=== PATIENT | female | born 1935 | race Caucasian/White ===

== ENCOUNTER 2019-10-20 15:04 | Emergency (ER) | payer MEDICARE, OTHER, SELFPAY ==
[2019-10-20] VITALS (8 sets, daily range): BP systolic 138–172; BP diastolic 61–105; PULSE 66–99; RESP 14–24; TEMP 36; O2SAT 98–99; BMI 25.4
--- NOTE | 2019-10-20 15:12 | CT_ITS ---
We are attempting to reach an attending provider to discuss findings. An addendum with communication details will be sent when the communication is complete. STUDY: CT BRAIN WITHOUT CONTRAST REASON FOR EXAM: Female, 83 years old. SUDDEN ONSET DIZZINESS RADIATION DOSAGE (If Supplied By Facility): CTDIvol = ( 44.99 ) mGy, DLP = ( 796.11 ) mGycm TECHNIQUE: Transaxial CT imaging of the brain was performed without administration of intravenous contrast material. Individualized dose optimization techniques were used for this CT. COMPARISON: No relevant priors. FINDINGS: Normal soft tissue structures. Normal calvarium. There is mild cerebral atrophy with widening of the extra-axial spaces and ventricular dilatation. There are areas of decreased attenuation within the white matter tracts of the supratentorial brain, consistent with microvascular disease changes. There is low attenuation within the left thalamus compatible with old thalamic infarct. Normal brainstem. There is a focus of hyperdensity in the right side cerebellum measuring 2.3 x 1.6 cm with surrounding edema. There is a small focus of indeterminate low attenuation within the left-sided cerebellum which may represent chronic ischemic change. There are no findings of an acute ischemic infarction. Normal visualized paranasal sinuses. CT/Brain/Head without Contrast IMPRESSION: 2.3 x 1.6 x 2.6 cm acute right cerebellar hemorrhage with surrounding edema consider hemorrhagic infarct potentially underlying hemorrhagic mass in the appropriate setting. Atrophy chronic involutional change. 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 Electronically Signed: Kathryn Wilkins MD at 16:21 EST Tel , Service support ,
--- NOTE | 2019-10-20 15:12 | EKG12_ITS ---
Test Reason : DIZZINESS Blood Pressure : / mmHG Vent. Rate : 066 BPM Atrial Rate : 066 BPM P-R Int : 150 ms QRS Dur : 084 ms QT Int : 424 ms P-R-T Axes : 061 -42 -05 degrees QTc Int : 444 ms Normal sinus rhythm with sinus arrhythmia Left axis deviation Nonspecific ST abnormality Abnormal ECG Confirmed by FILEMON KERR, ELISA ([id number]), editor in chief BRENDA SALVADOR ([id number]) on 10/22/2019 1:33:21 PM Referred By: DIANNE Confirmed By:ELISA COLBERT MD
--- NOTE | 2019-10-20 15:13 | ED.VIS.GEN ---
History of Present Illness Chief Complaint: Dizziness Informant: Patient Onset: Today Context: Sudden Onset Timing: Continuous Current Severity: Moderate Maximum Severity: Severe Narrative: The patient is an 83-year-old female with only medical history significant for thyroid disease that presents to the emergency department with acute on sent sensation of motion, nausea, and vomiting. The patient states that she was in her normal state of health. She states that she was going to the grocery store. She states when she was walking in, she became acutely dizzy and nauseated. She states she just felt very off. She is never had anything like this before. She denies any trouble speaking or swallowing. She denies any neck pain or trauma. She denies any focal weakness. She was brought here immediately by squad. Prior similar symptoms: No Recent Illness/Hospitalization: No Past Medical History - Allergies and Home Meds Allergies/Adverse Reactions: Allergies naproxen [From Naprosyn] Allergy (Verified 02/08/17 16:16) Other Primary Care Physician: Fercho Vegas DO [Primary Care Provider] - Prior records reviewed: Yes Past Medical History: - - Thyroid disease Surgical History: noncontributory Smoking Status: Never smoker Review of Systems General: Denies: Chills, Fever, Sweats Eyes: Denies: Visual changes - bilaterally, Diplopia ENT: Denies: Rhinorrhea, Sore throat Cardiovascular: Denies: Chest pain, Palpitations Respiratory: Denies: Dyspnea, Cough, Dyspnea on exertion Gastrointestinal: Reports: Nausea, Vomiting. Denies: Abdominal pain, Diarrhea, Melena, Hematochezia Genitourinary: Denies: Dysuria, Hematuria, Frequency Musculoskeletal: Denies: Back pain, Extremity Pain Skin: Denies: Rash, Wounds Neurological: Denies: Headache, Weakness, Numbness Physical Exam Vital Signs/Narrative: Vital Signs Temp Pulse Resp BP Pulse Ox 10/20/19 15:06 96.8 F L 85 16 151/105 H 99 10/20/19 15:05 96.8 F L 66 16 151/105 H 98 Inital Vital Signs reviewed: Yes General: Well nourished, Well developed, No Acute Distress Head: Normocephalic, Atraumatic Eyes: Perrl, EOMI ENT: Moist mucous membranes, No rhinorrhea Neck: Supple, Nontender Cardiovascular: Regular rate, Regular rhythm, No murmurs Respiratory: No distress, CTA bilaterally, Chest nontender Abdomen: Soft, Nontender, Nondistended, Normal bowel sounds Back: Nontender, Normal Inspection Extremities: Nontender, No edema Skin: Normal color, No rash Neurological: Alert, Oriented x3, Cranial nerves II-XII grossly intact, Normal Strength, Normal Sensation Psychological: Normal affect, Normal Mood Diagnostic/Tx/Re-eval Clinical Impression(s) from Imaging Studies Brain CT 10/20/19 15:12 IMPRESSION: 2.3 x 1.6 x 2.6 cm acute right cerebellar hemorrhage with surrounding edema consider hemorrhagic infarct potentially underlying hemorrhagic mass in the appropriate setting. Atrophy chronic involutional change. 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 Electronically Signed: Kathryn Wilkins MD at 16:21 EST Tel , Service support , Abnormal Lab Results 10/20/19 10/20/19 15:20 15:20 WBC 7.0 RBC 4.54 Hgb 12.4 Hct 40.6 MCV 89.4 MCH 27.3 MCHC 30.5 L RDW Std Deviation 44.1 H RDW Coeff of Jose J 13.5 Plt Count 223 MPV 10.9 Immature Gran % (Auto) 2.700 H Neut % (Auto) 57.4 Lymph % (Auto) 27.5 Mclennan % (Auto) 10.7 H Eos % (Auto) 1.0 Baso % (Auto) 0.7 Absolute Neuts (auto) 4.0 Absolute Lymphs (auto) 1.93 Nucleated RBC % 0 Sodium 138 Potassium 3.3 L Chloride 106 Carbon Dioxide 27.0 Anion Gap 5 BUN 19 H Creatinine 0.71 Estim Creat Clear Calc 30.62 Est GFR (MDRD) Af Amer 101 Est GFR (MDRD) Non-Af 84 BUN/Creatinine Ratio 26.8 H Glucose 140 H Calcium 9.2 Total Bilirubin 0.40 AST 23 ALT 25 Alkaline Phosphatase 77 Total Protein 7.3 Albumin 3.7 Globulin 3.6 Albumin/Globulin Ratio 1.0 - Medical Decision Making The patient presents with acute onset nausea, vomiting, and sensation of motion. She has no nystagmus. She moves all extremities. She did seem to have some difficulty with comprehension, but it was hard to determine if this was focal. However, given her age and symptoms, she was sent immediately for head CT. This shows a small cerebellar hemorrhage. The patient was hypertensive so she was started on a Cardene drip. She is not on anticoagulants. I did discuss the results with the patient and her son. The patient is going to require higher level of care. She was discussed with Allen flores and will be transferred for definitive care of her new hemorrhagic stroke. Impression 1. Hemorrhagic stroke - Critical Care Time Critical care time (excluding procedures): 30-74 minutes, Discussing w/Patient &/or Family/Web Operations Manager, Discussing w/Consultants, Arranging Admission or Transfer, Performing Direct Patient Care at Bedside ED Disposition - Plan for ED Patient: Referrals: Fercho Vegas DO [Primary Care Provider] -
[2019-10-20] MEDS: 0.9% Normal Saline 1,000 ML 1000 ML IV (15:26)
[2019-10-20] MEDS: proMETHazine 25 MG/ML Syringe 6.25 MG IV (15:26)
[2019-10-20 15:39] LABS: Absolute Lymphocyte Count 1.93 X10^3/uL (0.83-4.51); Basophil# 0.05 X10^3/uL; Basophil% 0.7 % (0-1); Eosinophil# 0.07 X10^3/uL; Hematocrit 40.6 % (37-47); Hemoglobin 12.4 g/dL (12.0-15.0); Lymphocyte # 1.93 X10^3/ul (4.0); Lymphocyte % 27.5 % (19-41); Mean Corp Hgb Conc 30.5 g/dL (32-36); Mean Corpuscular Hgb 27.3 pg (27.0-32.0); Mean Corpuscular Volume 89.4 fL (81-99); Mean Platelet Vol. 10.9 fl (6.2-12.0); Monocyte# 0.75 X10^3/uL; Monocyte% 10.7 % (0-10); NRBC Flagged by Analyzer 0 % (0-5); Neutrophil # 4.04 X10^3/uL (2.7-7.7); Neutrophil % 57.4 % (47-70); Platelet Count 223 K/mm3 (150-450); RBC Distribution Width CV 13.5 % (11.6-14.6); RBC Distribution Width SD 44.1 fl (35.1-43.9); Red Blood Count 4.54 M/mm3 (4.2-5.4)
[2019-10-20 15:49] LABS: AST(SGOT) 23 U/L (15-37); Alanine Aminotransfer ALT/SGPT 25 U/L (13-56); Albumin, Serum 3.7 g/dL (3.2-5.0); Alkaline Phosphatase 77 U/L (45-117); Anion Gap 5 (5-15); BUN 19 mg/dL (7-18); BUN/Creat Ratio 26.8 RATIO (10-20); Calcium,Total 9.2 mg/dL (8.5-10.1); Chloride 106 mmol/L (98-107); Creatinine, Serum 0.71 mg/dL (0.55-1.02); EST Glomerular Filtration Rate 84 mL/min (>60); Est Glom Filt Rate - Afr Amer 101 mL/min (>60); Estimated Creatinine Clearance 30.62 ml/min; Globulin 3.6 g/dL (2.2-4.2); Glucose 140 mg/dL (74-106); Potassium 3.3 mmol/L (3.5-5.1); Protein, Total 7.3 g/dL (6.4-8.2); Sodium Level 138 mmol/L (136-145)
[2019-10-20 16:34] LABS: Bacteria 0 SEEN /hpf (None Seen); Mucous, Urine 0 SEEN /hpf (<or=2+); Squamous Epithelial Cells - UA 0 SEEN /hpf (5-10); White Blood Cells 0 SEEN /hpf (0-5)
[2019-10-20 16:39] LABS: Color, Urine Yellow (Yellow); Glucose, Dipstick Normal (Normal); Ketone-Dipstick Negative (Negative); Leukocyte Esterase-Dipstick Negative /ul (Negative); Nitrite-Dipstick Negative (Negative); Occult Blood-Urine 25 /ul (Negative); Protein-Dipstick Negative (Negative); Urine Bilirubin Dipstick Negative (Negative); Urine Clarity Clear (Clear); Urine Urobilinogen Normal (Normal)
[2019-10-20 17:50] LABS: Red Blood Cells-Urine 0-5 SEEN /hpf (0-5)
== END 2019-10-20 17:30 | disposition short-term general hospital (02) ==
PROVIDERS: Emergency Provider Emergency Medicine; PCP Student in an Organized Health Care Education/Training Program
DX: I61.4 Nontraumatic intracerebral hemorrhage in cerebellum (principal); E07.9 Disorder of thyroid, unspecified; Z86.73 Personal history of transient ischemic attack (TIA), and cerebral infarction without residual deficits; Z88.6 Allergy status to analgesic agent
CPT/HCPCS: 51702; 70450; 80053; 81001; 85025; 93005; 99285; J7030; J7050; A4216

== ENCOUNTER 2019-10-23 15:21 | Inpatient (IN) | payer MEDICARE, OTHER, SELFPAY ==
[2019-10-20 15:06] VITALS: BMI 25.4
[2019-10-23 15:28] VITALS: BP 147/68; PULSE 66; RESP 16; TEMP 36.4; O2SAT 98; BMI 22.8; BMI 22.9
[2019-10-23 16:36] VITALS: BMI 22.8
[2019-10-23 16:38] VITALS: O2SAT 98
[2019-10-23 19:44] VITALS: BP 141/79; PULSE 89; RESP 12; TEMP 36.5; O2SAT 98
[2019-10-23] MEDS: Atorvastatin Calcium 40 MG Tablet PO (21:49)
[2019-10-24 05:00] VITALS: BMI 22.8
[2019-10-24] MEDS: Levothyroxine 100 MCG Tablet PO (06:13)
[2019-10-24 06:57] VITALS: BP 138/77; PULSE 68; RESP 18; TEMP 36.4; O2SAT 99
[2019-10-24] MEDS: Multivitamins,Ther W-Minerals Tablet 1 TABLET PO (09:08)
[2019-10-24] MEDS: amLODIPine 10 MG Tablet PO (09:08)
--- NOTE | 2019-10-24 12:04 | HP.PCM_ITS ---
Problem List (1) Cerebellar hemorrhage Status: Acute Comment: subacute. CVA happened on 10/20/19 (2) Hypothyroidism Status: Chronic (3) Hypertension Status: Chronic (4) Diverticulosis Status: Chronic (5) Hemorrhagic cerebrovascular accident (CVA) Status: Acute Comment: Occurred on 10/20/2019 (6) Nephrolithiasis Status: Chronic Comment: Within the right kidney (7) Hiatal hernia Status: Chronic (8) COPD (chronic obstructive pulmonary disease) Status: Suspected Comment: flattened diaphragms and hyperexpansion on CTA of the chest in 2016 (9) Hemangioma of liver Status: Chronic (10) 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 (11) Osteoarthritis Status: Chronic Comment: has had a few injections in the knee History of Present Illness Date of Admission: 10/24/19 Chief Complaint: post hemorhagic cerebellar CVA debility The patient is a 83 year old F with a past medical history of hypertension, hypothyroidism, liver hemangioma, intrarenal nephrolithiasis on the right, osteoarthritis and a hemorrhagic CVA in the cerebellum on 10/20/2019. Patient was getting out of her car at the grocery store on 10/20/2019 and had sudden onset of dizziness and just did not feel right. She also had nausea. Her gait was noticed to be unstable and store personnel called 911. She was brought to [facility] where a stroke alert was called and a stat CT brain showed hemorrhage in the right side of the cerebellum measuring 2.3 x 1.6 cm with surrounding edema. She also had changes consistent with microvascular disease and mild cerebral atrophy. There was a low attenuation within the left thalamus compatible with an old thalamic infarct. The brainstem was normal. She was transferred to [facility] for evaluation by neurosurgery. She had a follow-up CT scan of her head at [facility] and the bleeding was stable. There was no need for neurosurgical intervention. She was admitted to the neuro ICU. MRI done at [facility] on 10/21/19 showed acute left galvez radiata lacunar infarct with stable acute right cerebellar parenchymal hemorrhage. There were no mass lesions. MRA of the brain done at [facility] on 10/21/2019 showed right BEEF [employer] WORK[employer] P1 segment focal high-grade stenosis with no other high-grade stenosis or aneurysm in the intracranial and extracranial circulation. SABRINA on 10/21/2019 at [facility] showed an EF of 68% with moderate left atrial enlargement and no PFO. When stable she was transferred to [facility] acute IP rehab on 10/23/19 for greater than 3 hours of therapy daily with a goal of returning her home at or near her prior level of independence. Erin lives at home by herself and has 2 steps to enter her ho use through the garage. There is a flight of steps to the basement. There is a handrail present on the basement steps and entry steps. She has grab bars in her tub area. Prior to the stroke she was independent with ADLs and she would occasionally use a straight cane to walk in her condo but never in the community. She was driving prior to recent event. All records from [facility] were reviewed. She worked until she was 76 before she retired. 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 She belongs to several groups and is very active. Past Medical History Past Medical History (Chronic Problems): Chronic Problems Hypothyroidism (Chronic) Hypertension (Chronic) Diverticulosis (Chronic) Nephrolithiasis (Chronic) Within the right kidney Hiatal hernia (Chronic) Hemangioma of liver (Chronic) Infarction of left basal ganglia (Chronic) Osteoarthritis (Chronic) has had a few injections in the knee Allergies naproxen [From Naprosyn] Allergy (Verified 02/08/17 16:16) Other Home Medications: Ambulatory Orders Medication Instructions Recorded Levothyroxine [Synthroid] 100 mcg PO DAILY 10/16/15 Multivit-Min/FA/Lycopen/Lutein 1 tablet PO DAILY 10/16/15 [Centrum Silver Tablet] Amlodipine [Norvasc] 10 mg PO DAILY 10/23/19 Atorvastatin Calcium 40 mg PO DAILY 10/23/19 Cholecalciferol (VIT D3) 2,500 units PO DAILY 10/23/19 Surgical History: - - Cyst removal from right wrist, T&A at 12 years of age, surgery on the left nose to remove a basal cell carcinoma resulting in a permanent L facial droop - resolves with smiling Psychiatric History: No pertinent psych hx BIT WELDER History: No pertinent BIT WELDER history Lives: Alone, - - She has a son who lives locally but works Smoking Status: Never smoker Tobacco Use: Non-smoker Alcohol: None Drugs: None - *Family History Maternal History Items: - - mother had a stroke Paternal History Items: Heart Disease - father Review of Systems Constitutional: Reports: Weakness. Denies: Chills, Fever, Weight Change Eyes: Denies: Blurred vision, Vision Change HEENT: Denies: Difficulty Hearing, Difficulty Swallowing, Head Aches, Sinus Congestion, Sinus Drainage Cardiovascular: Denies: Chest Pain, Edema, Light Headedness, Palpitations, Syncope Respiratory: Denies: Cough, Shortness of breath at rest, Shortness of breath upon exertion, Sputum production Gastrointestinal: Reports: Nausea - tells me that she got nauseated with her morning pills.......took them after breakfast.. Denies: Abdominal Pain, Constipation, Diarrhea, Vomiting Genitourinary: Denies: Dysuria Musculoskeletal: Reports: Foot Pain, Hand Pain, Joint stiffness, Joint Tenderness - taras in the hands, the feet and the right knee. Denies: Joint Pain Skin: Denies: Jaundice, Rash, Wounds Neurological: Reports: Confusion. Denies: Slurred speech, Focal weakness, Headaches, Numbness, Tingling, Tremor, Seizures Psychiatric: Denies: Anxiety, Depression, Homicidal Ideations, Suicidal Ideations Endocrine: Denies: Change in Body Habitus Hematologic/ Lymphatic: Denies: Easy Bruising, Easy Bleeding, Hx of blood clot VTE Information - Inpt Only VTE Present on Admission: No VTE Mechan Device Prophylaxis: Knee High JUAN Hose VTE Pharm Prophylaxis ordered?: Yes Patient Problems: Active and Suspected Problems Cerebellar hemorrhage (Acute) subacute. CVA happened on 10/20/19 Hemorrhagic cerebrovascular accident (CVA) (Acute) Occurred on 10/20/2019 COPD (chronic obstructive pulmonary disease) (Suspected) flattened diaphragms and hyperexpansion on CTA of the chest in 2016 - Physical Exam Vitals/I&O's: Vital Signs Temp Pulse Resp BP Pulse Ox 97.6 F L 68 18 138/77 H 99 10/24/19 06:57 10/24/19 06:57 10/24/19 06:57 10/24/19 06:57 10/24/19 06:57 Oxygen Delivery Method Room Air Weight: 121 lb 0.54 oz Body Mass Index (BMI) 22.8 Intake and Output for Last 24 Hours 10/22/19 10/23/19 10/24/19 23:59 23:59 23:59 Intake Total 240 / 240 360 / 360 Output Total 150 / 150 Balance 90 / 90 360 / 360 General: Alert, Oriented x3, Cooperative, Well developed, Well nourished HEENT: Atraumatic, PERRLA, EOMI, Normocephalic Oral: Dry Mucosa Neck: Supple, No JVD, Negative Carotid Bruits, No Nodes, Trachea Midline Lungs: Clear to auscultation, Normal air movement, No rhonchi, No wheeze, No rales Cardiovascular: Regular rate, Regular Rhythm, Normal S1, Normal S2, No murmurs, No Ectopic Activity, No rub noted, No Gallop Abdomen: Bowel Sounds Present, Soft, Non Tender, Non-Distended, - - No guarding with palpation Extremities: No clubbing, No cyanosis, No edema, Capillary Refill Less than 3 Seconds, No Calf Tenderness, - - She has extensive arthritic changes in the PIP's and DIP's of the hands. There are no red or warm joints. Skin: No rashes, No breakdown Musculoskeletal: Arthritic Changes Neurological: Cranial nerves II-XII grossly intact - She has a mild droop to the left corner of the mouth. She had a wide excision of a basal cell carcinoma of the left nose and the incision extends from the eyebrow to the nares and into the nasal labial fold, Facial Droop - left due to prior surgery, - Psych/Mental Status: Anxious - very talkative and does not stop to allow me to ask questions...intermittently answers questions, Impulsive, - - speech seems pressured Current Medications Amlodipine Besylate (Norvasc) 10 mg PO DAILY PENDING SALE TO [facility] Last Admin: 10/24/19 09:08 Dose: 10 mg Documented by: Atorvastatin Calcium (Lipitor) 40 mg PO QHS PENDING SALE TO [facility] Last Admin: 10/23/19 21:49 Dose: 40 mg Documented by: Bisacodyl (Dulcolax) 10 mg RECTAL .PRN X 1 PRN PRN Reason: Constipation Cholecalciferol (Vitamin D (25mcg)) 2,500 unit PO DAILY PENDING SALE TO [facility] Last Admin: 10/24/19 09:08 Dose: 2,500 unit Documented by: Levothyroxine Sodium (Synthroid) 100 mcg PO DAILY@0600 PENDING SALE TO [facility] Last Admin: 10/24/19 06:13 Dose: 100 mcg Documented by: Magnesium Hydroxide (Milk Of Magnesia) 30 ml PO .PRN X 1 PRN PRN Reason: Constipation Multivitamins/Minerals (Multivitamin With Minerals (Bkc)) 1 tablet PO DAILY@0800 PENDING SALE TO [facility] Last Admin: 10/24/19 09:08 Dose: 1 tablet Documented by: Senna/Docusate Sodium (Senokot-S, Kelly-Colace) 2 tablet PO BID PENDING SALE TO [facility] Last Admin: 10/24/19 09:06 Dose: Not Given Documented by: Assessment/Plan All Active Problems Cerebellar hemorrhage (Acute) Hemorrhagic cerebrovascular accident (CVA) (Acute) Impressions 1. Debility due to Subacute right cerebellar hemorrhagic CVA on 10/20/19 2. Acute encephalopathy due to acute CVA with confusion and impulsiveness 3. HTN 4. Hypothyroidism 5. anxiety? she perseverates on things and has somewhat pressured speech - will continue to observe. Check a TSH and T4. 6. Diverticulosis/R intrarenal nephrolithiasis in the past/liver hemangioma/OA -complicate care, management, recovery and prognosis. Continue home medications. She was started on an antihypertensive at [facility]. She was also started on atorvastatin. She will need a follow-up liver panel, CK and lipid panel in 6 weeks. PLAN PT for gait stability OT for ADL's ST for evaluation Analgesics as needed Bowel protocol Fall precautions Assess for Anxiety/Depression - she is perseverating on things like BP and toileting and has a set way of doing things GI prophylaxis with none required at this time....no complaints of heartburn or GI distress DVT prophylaxis with heparin Follow up with Dr. Fercho Vegas within 1 week of discharge from rehab and with Dr. Monty Hanks from neurology following DC from Rehab Obtain progress notes, problem list, medication list and any reports of a DEXA scan from Dr. Fercho Vegas. CBC, CMP, magnesium, lipid panel, vitamin D level, TSH and T4 in the a.m. Add melatonin to her list of as needed medications. She refused a stool softener this morning. Inpatient E&M: [id number] Init Hosp L3
[2019-10-24 12:17] VITALS: BMI 22.8
--- NOTE | 2019-10-24 12:25 | CASEMGMT ---
Social Work PHQ-9 completed - scored 0/. Dianne Tavarez, CURRICULUM ADVISORY TEACHER CHILD DEVELOPMENT ASSOCIATE TEACHER
--- NOTE | 2019-10-24 14:13 | REHABEVAL_ITS ---
Admission Information Primary Diagnosis:: sequelae of recent R cerebellar hemorrhagic infarct with cognitive dysfunction and generalized weakness Status Changes from Prescreening?: No changes Identified Actual Problem List:: Cognitve Impr/Memory Loss, Alteration in Sleep, Mobility Impaired, Ineffective Communication, BP, Hypertension Potential Problem List:: DVT, Bleeding, Infection, UTI, Aspiration, Falls, Skin Integrity, Depression Risk of Complications DVT: LMWH, JUAN Hose Bleeding: Monitor Lab Values, Nursing to Teach Precautions for anti-coagulation therapy., Wound, if applicable, to be assessed every shift., Stroke patients assessed for lethargy or change in status. Infection: Clinical Staff to Monitor for S/S of infection:, S/S of infection include fever, redness, warmth, etc. Urinary Tract Infection: Monitor for frequency, burning, discomfort, or incontinence., Nursing will obtain urine sample for urinalysis and C&S when ordered. Aspiration: Clinical staff will monitor for coughing, drooling, congestion., Speech will evaluate swallowing and dsyphasia., Nursing will monitor patient swallowing during meals. Falls: Patient will be evaluated for Fall Precautions, Patient will be placed on Fall Precautions as indicated per protocol. Skin Breakdown: Nursing will assess skin daily using assessment tool., Nursing will place on Skin Breakdown Precautions as indicated. Pain: Clinical staff will assess patient's pain level per protocol., Medications will be given, if needed, and the pain level reassessed., Other methods: Massage, distraction, decrease stimulus, etc. used PRN. Plan of Care Patient requires physician specializing in physical medicine and rehab oversight to provide close medical supervision of rehab issues including: Pain Management, Sleep Problems, Bowel and Bladder, Medical and co-morbidity Management, DVT prophylaxis, Rehabilitation Leadership, Coordination of treatment team Patient needs Physical Therapy: For a minimum of 1 hour, At least 5 out of 7 days Patient needs Physical Therapy to improve:: Mobility, Mobility, Mobility, Strengthening, Transfers, Stretching, ROM, Endurance, Stairs, Gait, Balance Patient needs Occupational Therapy: For a minimum of 1 hour, At least 5 out of 7 days Patient needs Occupational Therapy to improve ADL's incl.: Eating, Grooming, B athing, Dressing, Toileting, Toilet transfers, Community Reintegration, Higher functioning activities, Household tasks, Adaptive Equipment, Splinting, Other activities as determined Patient requires speech therapy: For a minimum of 1 hour, At least 5 out of 7 days Patient requires speech therapy for: Swallowing, Cognition, Language Skills, Compensatory Strategies Patient requires 24/ Rehabilitation Nursing for: Pain Issues, Identifying and preventing risk factors, Monitoring and reporting current medical conditions, As sisting with ambulation, transfer, and all ADL's, Teaching patients about disease process and medications, Family teaching, Providing safe environment, Bowel and Bladder Issues, Skin integrity, Medication Management Patient needs Service Electrician/ Case Management for: Discharge Planning, Arranging Home Equipment or Services, Family Interventions Patient needs Dietary and Nutrition Services for: Adequate Nutrition, Nutritional Supplements, Nutritional Education Goals Patient will remain: free from falls, or injury at time of discharge. Patient will perform bed mobility at: MOD I level of assist. Patient will complete transfers from bed to chair at: MOD I level of assist. Patient will ambulate: 100 feet, with MOD I assist, with LRD Patient will complete upper body dressing at: MOD I level of assist. Patient will complete lower body dressing at: MOD I level of assist. Patient will complete toileting at: MOD I level of assist. Patient will perform bathing at: MOD I level of assist. Patient will complete grooming at: MOD I level of assist. Patient will complete home management skills at: MOD I level of assist. Patient will achieve: 12 stairs, at MOD I assist Patient will have pain level of: of 3 or less Patient's skin will: remain intact, free from infection. Patient will receive: adequate nutrition. Discharge Planning Pt Prognosis for Sig. Practical Improv. w/in Reasonable Time: Good Estimated Length of stay (days): 14 Anticipated D/C Destination: Home
[2019-10-24 15:22] LABS: Mucous, Urine 0 SEEN /hpf (<or=2+); Red Blood Cells-Urine 0 SEEN /hpf (0-5)
[2019-10-24 15:25] LABS: Color, Urine Yellow (Yellow); Glucose, Dipstick Normal (Normal); Ketone-Dipstick Negative (Negative); Leukocyte Esterase-Dipstick 100 /ul (Negative); Nitrite-Dipstick Negative (Negative); Occult Blood-Urine Negative /ul (Negative); Protein-Dipstick Negative (Negative); Specific Gravity, Urine 1.015 (1.002-1.030); Urine Bilirubin Dipstick Negative (Negative); Urine Clarity Sl. Cloudy (Clear); Urine Urobilinogen Normal (Normal)
[2019-10-24 15:33] LABS: Bacteria RARE /hpf (None Seen); Squamous Epithelial Cells - UA 0-5 SEEN /hpf (5-10); White Blood Cells 5-10 SEEN /hpf (0-5)
[2019-10-24 19:21] VITALS: BP 124/79; PULSE 83; RESP 18; TEMP 36.6; O2SAT 98
[2019-10-24] MEDS: Cefadroxil 500 MG CAPSULE 1000 MG PO (20:43)
[2019-10-24] MEDS: Heparin Injection (Vial) 5,000 UNIT/ML VIAL 5000 UNIT SC (20:44)
[2019-10-24] MEDS: Atorvastatin Calcium 40 MG Tablet PO (20:44)
[2019-10-24] MEDS: MELATONIN 3 MG TABLET PO (22:27)
[2019-10-25] MEDS: Levothyroxine 100 MCG Tablet PO (05:58)
[2019-10-25 07:14] VITALS: BP 148/75; PULSE 69; RESP 18; TEMP 36.6; O2SAT 100
[2019-10-25 07:43] LABS: Basophil# 0.03 X10^3/uL; Basophil% 0.6 % (0-1); Eosinophil# 0.13 X10^3/uL; Eosinophils% 2.6 % (0-5); Hematocrit 40.2 % (37-47); Hemoglobin 12.6 g/dL (12.0-15.0); Lymphocyte % 23.9 % (19-41); Mean Corp Hgb Conc 31.3 g/dL (32-36); Mean Corpuscular Hgb 27.5 pg (27.0-32.0); Mean Corpuscular Volume 87.8 fL (81-99); Mean Platelet Vol. 11.1 fl (6.2-12.0); Monocyte# 0.64 X10^3/uL; Monocyte% 12.7 % (0-10); NRBC Flagged by Analyzer 0 % (0-5); Neutrophil # 3.02 X10^3/uL (2.7-7.7); Platelet Count 228 K/mm3 (150-450); RBC Distribution Width CV 13.4 % (11.6-14.6); RBC Distribution Width SD 42.9 fl (35.1-43.9); Red Blood Count 4.58 M/mm3 (4.2-5.4)
[2019-10-25 07:44] VITALS: O2SAT 97
[2019-10-25] MEDS: Heparin Injection (Vial) 5,000 UNIT/ML VIAL 5000 UNIT SC ×2 (07:45→21:02)
[2019-10-25] MEDS: Cefadroxil 500 MG CAPSULE 1000 MG PO ×2 (07:46→21:02)
[2019-10-25] MEDS: Multivitamins,Ther W-Minerals Tablet 1 TABLET PO (07:46)
[2019-10-25] MEDS: amLODIPine 10 MG Tablet PO (07:46)
[2019-10-25 08:12] LABS: ALB/GLOB Ratio 0.9 RATIO (0.9-2.4); AST(SGOT) 22 U/L (15-37); Alanine Aminotransfer ALT/SGPT 25 U/L (13-56); Albumin, Serum 3.4 g/dL (3.2-5.0); Alkaline Phosphatase 71 U/L (45-117); Anion Gap 7 (5-15); BUN 21 mg/dL (7-18); BUN/Creat Ratio 32.1 RATIO (10-20); Calcium,Total 8.9 mg/dL (8.5-10.1); Chloride 105 mmol/L (98-107); Cholesterol 168 mg/dL (200); Creatinine, Serum 0.66 mg/dL (0.55-1.02); EST Glomerular Filtration Rate 92 mL/min (>60); Est Glom Filt Rate - Afr Amer 111 mL/min (>60); Estimated Creatinine Clearance 32.17 ml/min; Globulin 3.7 g/dL (2.2-4.2); Glucose 87 mg/dL (74-106); High Density Lipoprotein 65 mg/dL; Magnesium 2.2 mg/dL (1.6-2.6); Potassium 4.2 mmol/L (3.5-5.1); Protein, Total 7.1 g/dL (6.4-8.2); Sodium Level 138 mmol/L (136-145); T4 Total, Thyroxin 9.8 ug/dL (4.8-13.9); Thyroid Stim Hormone (TSH) 3.39 uIU/mL (0.358-3.74); Triglycerides 94 mg/dL; Very Low Density Lipoprotein 19 mg/dL (5-40)
[2019-10-25 08:38] VITALS: BMI 22.8
[2019-10-25 19:31] VITALS: BP 120/60; PULSE 76; RESP 16; TEMP 36.8; O2SAT 99
[2019-10-25] MEDS: Atorvastatin Calcium 40 MG Tablet PO (21:02)
[2019-10-25] MEDS: MELATONIN 3 MG TABLET PO (21:02)
[2019-10-26] MEDS: Levothyroxine 100 MCG Tablet PO (06:49)
[2019-10-26 07:40] VITALS: O2SAT 94
[2019-10-26 08:13] VITALS: BP 134/68; PULSE 69; RESP 16; TEMP 36.6; O2SAT 98
[2019-10-26] MEDS: Cefadroxil 500 MG CAPSULE 1000 MG PO ×2 (09:21→21:00)
[2019-10-26] MEDS: Heparin Injection (Vial) 5,000 UNIT/ML VIAL 5000 UNIT SC ×2 (09:21→21:00)
[2019-10-26] MEDS: amLODIPine 10 MG Tablet PO (09:22)
[2019-10-26 10:09] VITALS: BMI 22.8
--- NOTE | 2019-10-26 11:07 | NURSING ---
Pt refused her scheduled vit D and multi vit this AM despite education stating I don't take all these pills at home. Did take her Norvasc and Duricef. Will continue to monitor.
[2019-10-26 19:34] VITALS: BP 136/67; PULSE 63; RESP 16; TEMP 36.8; O2SAT 99
[2019-10-26] MEDS: MELATONIN 3 MG TABLET PO (21:00)
[2019-10-26] MEDS: Atorvastatin Calcium 40 MG Tablet PO (21:00)
--- NOTE | 2019-10-27 03:48 | NURSING ---
Reviewed and agree with CATEGORY CONSULTANT's functional assessment and handoff charting.
[2019-10-27 04:00] VITALS: BMI 22.8
[2019-10-27] MEDS: Levothyroxine 100 MCG Tablet PO (05:25)
[2019-10-27 06:00] VITALS: BP 135/69; PULSE 70; RESP 16; TEMP 36.5; O2SAT 97
[2019-10-27] MEDS: Senna/Docusate Sodium 1 Tablet 2 TABLET PO (07:59)
[2019-10-27] MEDS: Multivitamins,Ther W-Minerals Tablet 1 TABLET PO (07:59)
[2019-10-27] MEDS: amLODIPine 10 MG Tablet PO (07:59)
[2019-10-27] MEDS: Cefadroxil 500 MG CAPSULE 1000 MG PO (07:59)
--- NOTE | 2019-10-27 10:17 | CASEMGMT ---
Social Work IDT met with patient and son for Team Meeting. Discussed patient's progress in therapy. Pt is CGA for transfers and walking with FWW, min assist for bathing for thoroughness, CGA for dressing for balance while standing. Pt needs assistance for balance and safety. ST working with pt on ST memory, attention, comprehension, problem-solving, and decreased awareness of deficits. Pts lungs are clear. Pt is very routine oriented. Son noticed some ST memory issues the past 6-8 months and repetitiveness. Physician recommending f/u with neurologist at DC. Explained Medicare coverage - approved 9 days with DC date 10/31. Will continue to follow to determine DC needs. DELILAH LemusW
[2019-10-27] MEDS: Heparin Injection (Vial) 5,000 UNIT/ML VIAL 5000 UNIT SC ×2 (10:44→21:01)
--- NOTE | 2019-10-27 14:39 | PCM.PN.BLA ---
Progress Note The patient was seen on team rounds today. Her son Mk was present for team rounds. Afebile VSS Maintaining appropriate oxygen saturation on RA Oral intake is fair to good Discussed with nursing - no problems that need addressed Reviewed the PT/OT/ST notes Medication list reviewed. All lab was personally reviewed. CBC is unremarkable. The CMP is remarkable for an increased BUN at 21 with a creatinine of 0.66 and a BUN/creatinine ratio of 32.1. LDL is 84 and the HDL is 65. Vitamin D is within normal limits at 41 and the TSH and T4 are normal. UA on 10/24/2019 showed 5-10 white blood cells and rare bacteria and there was no growth on the urine culture. Duricef is been discontinued. Erin is complaining of nausea and dizziness which she associates with the BP medication that she was never on in the past but, I told he it is more likely than not due to the cerebellar hemorrhage. She has no other complaints today. I talked to Mk about any difficulties she has been having with memory prior to the stroke and he has noticed a decline in short term memory over the past 6 months. Erin is unaware of this. He has also noticed that she is repeating herself a lot also. Alert and oriented X 3 appropriate. Lungs- CTA H- RRR no gallop Abd -soft, NT, ND, normal BS's in all quadrants, no guarding with palpation no edema I observed her ambulating in the jones with the FWW and she is quite hunched over. Impressions 1. 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 HTN - new diagnosis for her 4. cognitive dysfunction with short term memory difficulties that seem to have predated the CVA. Perseveration. will need to follow up with neurology post DC for the stroke and also for cognitive testing......Alzheimer's? TSH and T4 are normal. 5. UTI - ruled out. Duricef discontinued Will check a B12 and also a RPR and CIRILO to r/o reversible causes of dementia Will need HHC at DC. Mk lives close by the pt and can spend the nights with her. Will need to be good with safety awareness prior to DC if she is going to be home by herself during the days DC the Duricef Encouraged increased fluid intake Recheck a BMP in a few days If she has not had a DEXA in the past I recommend that she get one as an OP. She has some Kyphosis Inpatient E&M: [id number] Subs Hosp L2
[2019-10-27 17:00] VITALS: BMI 22.8
[2019-10-27 19:31] VITALS: BP 117/62; PULSE 77; RESP 16; TEMP 36.8; O2SAT 97
--- NOTE | 2019-10-27 20:49 | NURSING ---
Pt ambulated around unit x2 with staff.
[2019-10-27 20:57] VITALS: BMI 22.8
[2019-10-27] MEDS: Atorvastatin Calcium 40 MG Tablet PO (21:01)
[2019-10-27] MEDS: MELATONIN 3 MG TABLET PO (21:01)
[2019-10-27 22:00] VITALS: RESP 16
[2019-10-28] MEDS: Levothyroxine 100 MCG Tablet PO (04:49)
--- NOTE | 2019-10-28 05:03 | NURSING ---
with am care, pt refusing JUAN hose. staff re-educates pt on the need for TEDs and the prevention of blood clots. pt verbalizes understanding and still refuses JUAN application. Will continue to educate.
[2019-10-28] MEDS: Heparin Injection (Vial) 5,000 UNIT/ML VIAL 5000 UNIT SC ×2 (08:04→20:50)
[2019-10-28] MEDS: Multivitamins,Ther W-Minerals Tablet 1 TABLET PO (08:04)
[2019-10-28] MEDS: amLODIPine 10 MG Tablet PO (08:05)
[2019-10-28] MEDS: Senna/Docusate Sodium 1 Tablet 2 TABLET PO (08:05)
[2019-10-28 08:17] VITALS: BP 149/83; PULSE 76; RESP 16; TEMP 36.6; O2SAT 97
[2019-10-28 10:20] VITALS: BMI 22.8
--- NOTE | 2019-10-28 12:05 | CASEMGMT ---
Social Work Spoke with son about alternative DC plans and resources. Discussed AL, SNF, skilled and nonskilled HHC, Medicare coverage in those areas, Adult Day Centers. Provided resources list above to son, including transportation and [employer] resources. Will continue to follow for DC planning. Dianne Tavarez, [employer] RIG BUILDER
[2019-10-28 20:50] VITALS: BP 131/60; PULSE 62; RESP 14; TEMP 36.7; O2SAT 97; O2SAT 99; BMI 22.8
[2019-10-28] MEDS: MELATONIN 3 MG TABLET PO (20:51)
[2019-10-28] MEDS: Atorvastatin Calcium 40 MG Tablet PO (20:51)
--- NOTE | 2019-10-29 00:28 | NURSING ---
Reviewed and agree with BUILDING CERTIFIER documentation and charting.
[2019-10-29] MEDS: Levothyroxine 100 MCG Tablet PO (06:43)
[2019-10-29 08:00] VITALS: BP 133/65; PULSE 61; RESP 17; TEMP 36.5; O2SAT 99
[2019-10-29] MEDS: Heparin Injection (Vial) 5,000 UNIT/ML VIAL 5000 UNIT SC ×2 (08:35→22:08)
[2019-10-29] MEDS: Multivitamins,Ther W-Minerals Tablet 1 TABLET PO (08:35)
[2019-10-29] MEDS: amLODIPine 10 MG Tablet PO (08:35)
[2019-10-29 11:24] VITALS: BMI 22.8
--- NOTE | 2019-10-29 13:41 | CASEMGMT ---
Addendum entered by Dianne Tavarez 10/30/19 15:50: [facility] to complete [id number] report to determine pt eligibility. Will continue to follow. Addendum entered by Dianne Tavarez 10/29/19 16:26: [facility] does not have availability. Referred to [facility] and they are reviewing clinicals and plan to schedule an onsite. Will continue to follow. Original Note: Social Work Met with patient and two sons to discuss therapy recommendations of AL and HHC at [place]. Pt agreeable. Explained at length respite AL at 30 days private pay, level of care needed, and HHC covered by insurance. Pt chose sons to look into [place], [place] and [facility]. Son will notify which AL to refer to. Will continue to follow for [place] 10/31. DELILAH Lemus
[2019-10-29 19:08] VITALS: BP 131/65; PULSE 79; RESP 16; TEMP 36.7; O2SAT 98
[2019-10-29 22:00] VITALS: PULSE 79; RESP 16; O2SAT 98; BMI 22.8
[2019-10-29] MEDS: MELATONIN 3 MG TABLET PO (22:08)
[2019-10-29] MEDS: Atorvastatin Calcium 40 MG Tablet PO (22:08)
[2019-10-30] MEDS: Levothyroxine 100 MCG Tablet PO (05:38)
[2019-10-30] MEDS: Senna/Docusate Sodium 1 Tablet 2 TABLET PO (08:26)
[2019-10-30] MEDS: amLODIPine 10 MG Tablet PO (08:26)
[2019-10-30] MEDS: Multivitamins,Ther W-Minerals Tablet 1 TABLET PO (08:26)
[2019-10-30] MEDS: Heparin Injection (Vial) 5,000 UNIT/ML VIAL 5000 UNIT SC ×2 (08:36→20:59)
[2019-10-30 08:41] VITALS: BP 137/73; PULSE 81; RESP 16; TEMP 36.5; O2SAT 96
--- NOTE | 2019-10-30 10:28 | PCM.PN.BLA ---
Progress Note Afebile VSS Maintaining appropriate oxygen saturation on RA Oral intake is good Last bowel movement was today Discussed with nursing - no problems that need addressed Reviewed the PT/OT/ST notes - she is progressing Medication list reviewed. Dizziness is improving. no THAKUR Alert, very talkative, repeats herself and perseverates on things H-RRR, no gallop Lungs - CTA abd - soft, NT, ND, no guarding with palpation no edema, no calf tenderness Impressions 1. Post stroke debility 2. Subacute cerebellar hemorrhagic CVA-more likely than not secondary to untreated hypertension 3. Hypertension-blood pressures are well controlled. 4. suspected early dementia - recommended to her son that he follow up with a neurologist - the earlier the medication is started the better the response. ST is working with her on medications and she is having difficulty figuring out when to take the meds. I reviewed the SW's note and her sons are looking at AL facilities at [place]. She perseverates on things and then she can not move forward with other tasks. Will defer treating for suspected dementia until she sees a neurologist and has some neurocognitive testing done. She also should have a DEXA if not done in the past 2 years. She has kyphosis. Plan DC 11/01/19 STROKE Vital Signs/Narrative: Vital Signs Temp Pulse Resp BP Pulse Ox 10/30/19 08:41 97.7 F L 81 16 137/73 H 96 Inpatient E&M: [id number] Subs Hosp L2
[2019-10-30 11:38] VITALS: BMI 22.8
[2019-10-30 14:16] LABS: Vitamin B12 709 pg/mL (211-911)
[2019-10-30 19:27] VITALS: BP 128/63; PULSE 73; RESP 16; TEMP 36.4; O2SAT 97
[2019-10-30] MEDS: MELATONIN 3 MG TABLET PO (20:59)
[2019-10-30] MEDS: Atorvastatin Calcium 40 MG Tablet PO (20:59)
[2019-10-30 21:11] VITALS: BMI 22.8
[2019-10-31] MEDS: Levothyroxine 100 MCG Tablet PO (05:57)
[2019-10-31 06:39] LABS: Anion Gap 5 (5-15); BUN 20 mg/dL (7-18); BUN/Creat Ratio 30.1 RATIO (10-20); Calcium,Total 8.6 mg/dL (8.5-10.1); Chloride 109 mmol/L (98-107); Creatinine, Serum 0.66 mg/dL (0.55-1.02); EST Glomerular Filtration Rate 90 mL/min (>60); Est Glom Filt Rate - Afr Amer 109 mL/min (>60); Estimated Creatinine Clearance 32.17 ml/min; Glucose 85 mg/dL (74-106); Potassium 4.2 mmol/L (3.5-5.1); Sodium Level 140 mmol/L (136-145)
[2019-10-31] MEDS: amLODIPine 10 MG Tablet PO (07:50)
[2019-10-31] MEDS: Multivitamins,Ther W-Minerals Tablet 1 TABLET PO (07:50)
[2019-10-31 08:24] VITALS: BP 139/72; PULSE 65; RESP 16; TEMP 36.4; O2SAT 98
[2019-10-31] MEDS: Heparin Injection (Vial) 5,000 UNIT/ML VIAL 5000 UNIT SC ×2 (08:41→21:00)
--- NOTE | 2019-10-31 11:46 | CASEMGMT ---
Social Work Spoke with [facility] and they can accept pt. Notified son and inquired about HHC agency - son chose [facility]- referral made for PT/OT. No DME needs. Plan: DC to [facility] 10/31 with [facility] PT/OT. Dianne Tavarez, [employer] LAB OPERATOR
--- NOTE | 2019-10-31 13:04 | CASEMGMT ---
Addendum entered by Dianne Tavarez 10/31/19 13:36: Ordered ST for cognition as well. Original Note: Social Work Spoke with [facility] and pt can receive outpatient PT/OT there. Pt and son's are agreeable. Cancelled [facility] referral. Dianne Tavarez, DELILAH GRANTW
--- NOTE | 2019-10-31 13:28 | PCM.TXEXTCAR ---
- Diet 10/23/19 16:00 Diet: Cardiac/Low Cholesterol Food consistency:: Regular Liquid Consistency:: Regular/Thin Diet Comments: no salt - Routine Orders/Code Status Enema Type: Fleetz Enema Frequency: Daily PRN Suppository Type: Dulcolax 10mg Suppository Frequency: Daily PRN O2 Liters per Minute: 1-2 O2 Frequency: PRN Keep PO Greater than or Equal to (%): 90 Routine Lab Work: - - BMP and CBC without diff in 1 week Code Status: Full Code - Therapies Weight Bearing: Full weight bearing Extremity Affected:: problems with balance due to a posterior circulation CVA Physical Therapy: Eval and Treat Occupational Therapy: Eval and Treat Speech Therapy: Eval and Treat - Problem/Diagnosis (1) Cerebellar hemorrhage Status: Chronic Comment: subacute. CVA happened on 10/20/19 Current Visit: Yes (2) Hypothyroidism Status: Chronic Current Visit: Yes (3) Hypertension Status: Chronic Current Visit: Yes (4) Diverticulosis Status: Chronic Current Visit: Yes (5) Hemorrhagic cerebrovascular accident (CVA) Status: Acute Comment: Occurred on 10/20/2019 Current Visit: Yes (6) Nephrolithiasis Status: Chronic Comment: Within the right kidney Current Visit: Yes (7) Hiatal hernia Status: Chronic Current Visit: Yes (8) COPD (chronic obstructive pulmonary disease) Status: Suspected Comment: flattened diaphragms and hyperexpansion on CTA of the chest in 2016 Current Visit: Yes (9) Hemangioma of liver Status: Chronic Current Visit: Yes (10) 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 Current Visit: Yes (11) Osteoarthritis Status: Chronic Comment: has had a few injections in the knee Current Visit: Yes (12) Back pain Status: Chronic Current Visit: Yes (13) Dementia Status: Suspected Current Visit: Yes - Allergies/Procedures Done in Hospital Allergies/Adverse Reactions: Allergies naproxen [From Naprosyn] Allergy (Verified 02/08/17 16:16) Other Procedures: None - Type of Care/Length of Stay Estimated LOS: More Than 30 Days Type of Care Needed: [facility]/Assisted Living Rehab Potential: Good Prognosis: Good - Additional Orders/Day of Discharge Additional Orders: She tends to perseverate on things. She is having difficulty with problem solving and safety awareness. She should continue to get ST. She has been referred to a neurologist to be evaluated for dementia. All of her labs have been good including B12, TSH, T4. There is an CIRILO and a RPR pending at the time of DC. H&P will serve as current which was dated: 10/24/19 Day of Discharge: 10/31/19 - Dietary and Speech Recommendations Dietitian Recommendations/Changes: Continue cardiac/low chol - no added salt diet. - Follow Up Care Primary Care Physician: Fercho Vegas, [Primary Care Provider] - Please follow up with your Primary Care Physician in: following DC from [facility] Please Follow Up With: Dr Fercho Vegas Please Follow Up With: Romain Hanks-Neurology Please Follow Up With: Enma De Leon
[2019-10-31 15:43] VITALS: BMI 22.8
[2019-10-31 16:51] LABS: ANTINUCLEAR ANTIBODIES DIRECT Negative (Negative)
[2019-10-31 20:12] VITALS: BP 126/69; PULSE 86; RESP 16; TEMP 36.4; O2SAT 94
[2019-10-31] MEDS: MELATONIN 3 MG TABLET PO (21:00)
[2019-10-31] MEDS: Atorvastatin Calcium 40 MG Tablet PO (21:00)
[2019-11-01 03:11] VITALS: BMI 22.8
[2019-11-01] MEDS: Levothyroxine 100 MCG Tablet PO (06:16)
[2019-11-01 07:00] VITALS: BP 126/68; PULSE 71; RESP 18; TEMP 36.3; O2SAT 100
[2019-11-01] MEDS: Multivitamins,Ther W-Minerals Tablet 1 TABLET PO (08:04)
[2019-11-01] MEDS: amLODIPine 10 MG Tablet PO (08:04)
[2019-11-01 12:00] VITALS: BMI 22.8
[2019-11-01 13:40] VITALS: BP 126/68; PULSE 71; RESP 17; TEMP 36.3; O2SAT 100
--- NOTE | 2019-11-01 13:45 | NURSING ---
Son given dc instruct and he will make follow up pcp appointment. Assisted living at [facility] given report. Patient in good spirits.
[2019-11-06 02:22] LABS: Rapid Plasmin Reagin (RPR) NONREACTIVE (NONREACTIVE)
--- NOTE | 2019-11-08 16:10 | PCM.DC.SUM ---
Discharge Date and Diagnosis Date of Admission: 10/24/19 Date of Discharge: 10/31/19 - Primary Discharge Diagnosis Post stroke debility Subacute cerebellar hemorrhagic CVA-more likely than not secondary to untreated hypertension Acute encephalopathy secondary to acute CVA with confusion and impulsiveness Suspected anxiety Suspected dementia - Secondary Discharge Diagnosis Chronic Problems Cerebellar hemorrhage (Chronic) subacute. CVA happened on 10/20/19 Hypothyroidism (Chronic) Hypertension (Chronic) Diverticulosis (Chronic) Nephrolithiasis (Chronic) Within the right kidney Hiatal hernia (Chronic) Hemangioma of liver (Chronic) Infarction of left basal ganglia (Chronic) Osteoarthritis (Chronic) has had a few injections in the knee Back pain (Chronic) kyphosis Hospital Course and Treatment Imaging Results: Laboratory Tests 10/31/19 10/30/19 10/30/19 Range/Units 05:37 13:26 13:26 WBC (4.4-11.0) K/mm3 RBC (4.2-5.4) M/mm3 Hgb (12.0-15.0) g/dL Hct (37-47) % MCV (81-99) fL MCH (27.0-32.0) pg MCHC (32-36) g/dL RDW Std Deviation (35.1-43.9) fl RDW Coeff of Jose J (11.6-14.6) % Plt Count (150-450) K/mm3 MPV (6.2-12.0) fl Immature Gran % (Auto) (0.0-0.9) % Neut % (Auto) (47-70) % Lymph % (Auto) (19-41) % Carlton % (Auto) (0-10) % Eos % (Auto) (0-5) % Baso % (Auto) (0-1) % Absolute Neuts (auto) (2.0-7.7) X10^3/uL Absolute Lymphs (auto) (0.83-4.51) X10^3/uL Nucleated RBC % (0-5) % Sodium 140 (136-145) mmol/L Potassium 4.2 (3.5-5.1) mmol/L Chloride 109 H (98-107) mmol/L Carbon Dioxide 26.0 (21.0-32.0) mmol/L Anion Gap 5 (5-15) BUN 20 H (7-18) mg/dL Creatinine 0.66 (0.55-1.02) mg/dL Estim Creat Clear Calc 32.17 ml/min Est GFR (MDRD) Af Amer 109 (>60) mL/min Est GFR (MDRD) Non-Af 90 (>60) mL/min BUN/Creatinine Ratio 30.1 H (10-20) RATIO Glucose 85 (74-106) mg/dL Calcium 8.6 (8.5-10.1) mg/dL Magnesium (1.6-2.6) mg/dL Total Bilirubin (0.20-1.00) mg/dL AST (15-37) U/L ALT (13-56) U/L Alkaline Phosphatase (45-117) U/L Total Protein (6.4-8.2) g/dL Albumin (3.2-5.0) g/dL Globulin (2.2-4.2) g/dL Albumin/Globulin Ratio (0.9-2.4) RATIO Triglycerides ( - 199) mg/dL Cholesterol (200) mg/dL LDL Cholesterol (0-130) mg/dL VLDL Cholesterol (5-40) mg/dL HDL Cholesterol (40 - ) mg/dL Vitamin B12 (211-911) pg/mL Vitamin D 25-Hydroxy ng/mL TSH (0.358-3.74) uIU/mL Thyroxine (T4) (4.8-13.9) ug/dL Urine Color (Yellow) Urine Clarity (Clear) Urine pH (5.0 - 8.0) Ur Specific [place] (1.002-1.030) Urine Protein (Negative) mg/dl Urine Glucose (UA) (Normal) mg/dl Urine Ketones (Negative) mg/dl Urine Occult Blood (Negative) /ul Urine Nitrite (Negative) Urine Bilirubin (Negative) mg/dL Urine Urobilinogen (Normal) mg/dl Ur Leukocyte Esterase (Negative) /ul Urine RBC (0-5) /hpf Urine WBC (0-5) /hpf Ur Squamous Epith Cells (5-10) /hpf Urine Bacteria (None Seen) /hpf Urine Mucus (<or=2+) /hpf CIRILO Screen Negative (Negative) STEPHANIE-1 Antibody Not Reportable SS-A/Ro IgG Antibody Not Reportable SS-B/La IgG Antibody Not Reportable Sm (Burciaga) Antibody Not Reportable IT SERVICE CONTINUITY SUPERVISOR Antibody Not Reportable Scl-70 Scleroderma Ab Not Reportable Double Strand DNA Ab Not Reportable Centromere B Antibody Not Reportable RPR NONREACTIVE (NONREACTIVE) 10/30/19 10/25/19 10/25/19 Range/Units 13:26 07:30 07:30 WBC (4.4-11.0) K/mm3 RBC (4.2-5.4) M/mm3 Hgb (12.0-15.0) g/dL Hct (37-47) % MCV (81-99) fL MCH (27.0-32.0) pg MCHC (32-36) g/dL RDW Std Deviation (35.1-43.9) fl RDW Coeff of Jose J (11.6-14.6) % Plt Count (150-450) K/mm3 MPV (6.2-12.0) fl Immature Gran % (Auto) (0.0-0.9) % Neut % (Auto) (47-70) % Lymph % (Auto) (19-41) % Carlton % (Auto) (0-10) % Eos % (Auto) (0-5) % Baso % (Auto) (0-1) % Absolute Neuts (auto) (2.0-7.7) X10^3/uL Absolute Lymphs (auto) (0.83-4.51) X10^3/uL Nucleated RBC % (0-5) % Sodium 138 (136-145) mmol/L Potassium 4.2 (3.5-5.1) mmol/L Chloride 105 (98-107) mmol/L Carbon Dioxide 26.0 (21.0-32.0) mmol/L Anion Gap 7 (5-15) BUN 21 H (7-18) mg/dL Creatinine 0.66 (0.55-1.02) mg/dL Estim Creat Clear Calc 32.17 ml/min Est GFR (MDRD) Af Amer 111 (>60) mL/min Est GFR (MDRD) Non-Af 92 (>60) mL/min BUN/Creatinine Ratio 32.1 H (10-20) RATIO Glucose 87 (74-106) mg/dL Calcium 8.9 (8.5-10.1) mg/dL Magnesium 2.2 (1.6-2.6) mg/dL Total Bilirubin 0.40 (0.20-1.00) mg/dL AST 22 (15-37) U/L ALT 25 (13-56) U/L Alkaline Phosphatase 71 (45-117) U/L Total Protein 7.1 (6.4-8.2) g/dL Albumin 3.4 (3.2-5.0) g/dL Globulin 3.7 (2.2-4.2) g/dL Albumin/Globulin Ratio 0.9 (0.9-2.4) RATIO Triglycerides 94 ( - 199) mg/dL Cholesterol 168 (200) mg/dL LDL Cholesterol 84 (0-130) mg/dL VLDL Cholesterol 19 (5-40) mg/dL HDL Cholesterol 65 (40 - ) mg/dL Vitamin B12 709 (211-911) pg/mL Vitamin D 25-Hydroxy 41.0 ng/mL TSH 3.39 (0.358-3.74) uIU/mL Thyroxine (T4) 9.8 (4.8-13.9) ug/dL Urine Color (Yellow) Urine Clarity (Clear) Urine pH (5.0 - 8.0) Ur Specific [place] (1.002-1.030) Urine Protein (Negative) mg/dl Urine Glucose (UA) (Normal) mg/dl Urine Ketones (Negative) mg/dl Urine Occult Blood (Negative) /ul Urine Nitrite (Negative) Urine Bilirubin (Negative) mg/dL Urine Urobilinogen (Normal) mg/dl Ur Leukocyte Esterase (Negative) /ul Urine RBC (0-5) /hpf Urine WBC (0-5) /hpf Ur Squamous Epith Cells (5-10) /hpf Urine Bacteria (None Seen) /hpf Urine Mucus (<or=2+) /hpf CIRILO Screen (Negative) STEPHANIE-1 Antibody SS-A/Ro IgG Antibody SS-B/La IgG Antibody Sm (Burciaga) Antibody IT SERVICE CONTINUITY SUPERVISOR Antibody Scl-70 Scleroderma Ab Double Strand DNA Ab Centromere B Antibody RPR (NONREACTIVE) 10/25/19 10/24/19 Range/Units 07:30 15:05 WBC 5.0 (4.4-11.0) K/mm3 RBC 4.58 (4.2-5.4) M/mm3 Hgb 12.6 (12.0-15.0) g/dL Hct 40.2 (37-47) % MCV 87.8 (81-99) fL MCH 27.5 (27.0-32.0) pg MCHC 31.3 L (32-36) g/dL RDW Std Deviation 42.9 (35.1-43.9) fl RDW Coeff of Jose J 13.4 (11.6-14.6) % Plt Count 228 (150-450) K/mm3 MPV 11.1 (6.2-12.0) fl Immature Gran % (Auto) 0.200 (0.0-0.9) % Neut % (Auto) 60.0 (47-70) % Lymph % (Auto) 23.9 (19-41) % Carlton % (Auto) 12.7 H (0-10) % Eos % (Auto) 2.6 (0-5) % Baso % (Auto) 0.6 (0-1) % Absolute Neuts (auto) 3.0 (2.0-7.7) X10^3/uL Absolute Lymphs (auto) 1.20 (0.83-4.51) X10^3/uL Nucleated RBC % 0 (0-5) % Sodium (136-145) mmol/L Potassium (3.5-5.1) mmol/L Chloride (98-107) mmol/L Carbon Dioxide (21.0-32.0) mmol/L Anion Gap (5-15) BUN (7-18) mg/dL Creatinine (0.55-1.02) mg/dL Estim Creat Clear Calc ml/min Est GFR (MDRD) Af Amer (>60) mL/min Est GFR (MDRD) Non-Af (>60) mL/min BUN/Creatinine Ratio (10-20) RATIO Glucose (74-106) mg/dL Calcium (8.5-10.1) mg/dL Magnesium (1.6-2.6) mg/dL Total Bilirubin (0.20-1.00) mg/dL AST (15-37) U/L ALT (13-56) U/L Alkaline Phosphatase (45-117) U/L Total Protein (6.4-8.2) g/dL Albumin (3.2-5.0) g/dL Globulin (2.2-4.2) g/dL Albumin/Globulin Ratio (0.9-2.4) RATIO Triglycerides ( - 199) mg/dL Cholesterol (200) mg/dL LDL Cholesterol (0-130) mg/dL VLDL Cholesterol (5-40) mg/dL HDL Cholesterol (40 - ) mg/dL Vitamin B12 (211-911) pg/mL Vitamin D 25-Hydroxy ng/mL TSH (0.358-3.74) uIU/mL Thyroxine (T4) (4.8-13.9) ug/dL Urine Color Yellow (Yellow) Urine Clarity Sl. Cloudy (Clear) Urine pH 7.0 (5.0 - 8.0) Ur Specific [place] 1.015 (1.002-1.030) Urine Protein Negative (Negative) mg/dl Urine Glucose (UA) Normal (Normal) mg/dl Urine Ketones Negative (Negative) mg/dl Urine Occult Blood Negative (Negative) /ul Urine Nitrite Negative (Negative) Urine Bilirubin Negative (Negative) mg/dL Urine Urobilinogen Normal (Normal) mg/dl Ur Leukocyte Esterase 100 H (Negative) /ul Urine RBC 0 SEEN (0-5) /hpf Urine WBC 5-10 SEEN (0-5) /hpf Ur Squamous Epith Cells 0-5 SEEN (5-10) /hpf Urine Bacteria RARE (None Seen) /hpf Urine Mucus 0 SEEN (<or=2+) /hpf CIRILO Screen (Negative) STEPHANIE-1 Antibody SS-A/Ro IgG Antibody SS-B/La IgG Antibody Sm (Burciaga) Antibody IT SERVICE CONTINUITY SUPERVISOR Antibody Scl-70 Scleroderma Ab Double Strand DNA Ab Centromere B Antibody RPR (NONREACTIVE) Microbiology 10/24/19 15:05 Urine, Clean Catch Urine Culture - Final Culture exhibits no growth. None Operations: None Procedures: None Summary of Care Provided: Erin is a 83 year old F with a past medical history of hypertension, hypothyroidism, liver hemangioma, intrarenal nephrolithiasis on the right, osteoarthritis and a hemorrhagic CVA in the cerebellum on 10/20/2019(more likely than not due to HTN). She was getting out of her car at the grocery store on 10/20/2019 and had sudden onset of dizziness and just did not feel right. She also had nausea. Her gait was noticed to be unstable by observers and store personnel called 911. She was brought to [facility] where a stroke alert was called and a stat CT brain showed hemorrhage in the right side of the cerebellum measuring 2.3 x 1.6 cm with surrounding edema. She also had changes consistent with microvascular disease and mild cerebral atrophy. There was a low attenuation area within the left thalamus compatible with an old thalamic infarct. The brainstem was normal. She was transferred to [facility] for evaluation by neurosurgery. She had a follow-up CT scan of her head at [facility] and the bleeding was stable. There was no need for neurosurgical intervention. She was admitted to the neuro ICU. MRI done at [facility] on 10/21/19 showed acute left galvez radiata lacunar infarct with stable acute right cerebellar parenchymal hemorrhage. There were no mass lesions. MRA of the brain done at [facility] on 10/21/2019 showed right HEARING STENOGRAPHER P1 segment focal high-grade stenosis with no other high-grade stenosis or aneurysm in the intracranial and extracranial circulation. SABRINA on 10/21/2019 at [facility] showed an EF of 68% with moderate left atrial enlargement and no PFO. When stable she was transferred to [facility] acute IP rehab on 10/23/19 for greater than 3 hours of therapy daily with a goal of returning her home at or near her prior level of independence. Erin lives at home by herself and has 2 steps to enter her house through the garage. There is a flight of steps to the basement. There is a handrail present on the basement steps and entry steps. She has grab bars in her tub area. Prior to the stroke she was independent with ADLs and she would occasionally use a straight cane to walk in her condo but never in the community. She was driving prior to the CVA. Lab at admission to the inpatient rehab unit showed an unremarkable CBC. BMP was remarkable for an elevated BUN at 21 with a creatinine of 0.66. LFTs were normal. LDL was 84 with an HDL of 65. Triglycerides were 94. The UA had 5-10 WBCs per high-power field with rare bacteria but the urine culture was negative. Erin was quite anxious at admission to the unit and she was confused. She perseverates and repeats herself frequently. She has a routine that she has followed for years and is very resistant to any change in her routine making it difficult to schedule her for therapy. We met with her son on team rounds 1 day and inquired how her thought processes have been in the past 6 months. He has noticed that she repeats herself and sometimes she seems to be confused. Her memory is declining. Lab to rule out treatable causes of dementia showed a normal B12, normal TSH and a negative CIRILO. RPR was negative. There were no signs of hydrocephalus on imaging done for the stroke. She did well with therapy but since she lives at home by herself and is confused at times her sons thought it best to have her go to assisted living at least for the next 2 months until they see how much help she is going to need and if it is advisable to have her live by herself again since she is having difficulty with problem solving and safety awareness. I recommended that Erin follow-up with the neurologist and be evaluated for dementia when she is stable to see if she is appropriate for medication. They are going to follow-up with Dr. Hanks from neurology ( he saw her in the hospital ). She will also follow up with her PCP, Dr. Fercho Vegas. She was discharged on 1320 to assisted living at [facility]. Alert and oriented X 3 appropriate. Lungs- CTA H- RRR no gallop Abd -soft, NT, ND, normal BS's in all quadrants, no guarding with palpation no edema I observed her ambulating in the jones with the FWW and she is quite hunched over. I recommended that if she has not had a DEXA in the past 2 years she discuss obtaining an OP DEXA with Dr. Vegas. Her vitamin D level was within normal limits at 41. This note was generated with Syncurity dictation software. It may contain incorrect words, spelling, and punctuation that were not noted in checking the note before signing. - Physical Exam Vitals/I&O's: Vital Signs Temp Pulse Resp BP Pulse Ox 97.4 F L 71 17 126/68 H 100 11/01/19 13:40 11/01/19 13:40 11/01/19 13:40 11/01/19 13:40 11/01/19 13:40 Oxygen Delivery Method Room Air Weight: 121 lb 0.54 oz Body Mass Index (BMI) 22.8 Home Medications: Medications to take at Discharge Levothyroxine [Synthroid] 100 mcg PO DAILY 10/16/15 Multivit-Min/FA/Lycopen/Lutein [Centrum Silver Tablet] 1 tablet PO DAILY 10/16/15 Amlodipine [Norvasc] 10 mg PO DAILY 10/23/19 Atorvastatin Calcium 40 mg PO DAILY 10/23/19 Cholecalciferol (VIT D3) 2,500 units PO DAILY 10/23/19 Acetaminophen [Tylenol Extra Strength] 1,000 mg PO Q8H #1 tab 10/31/19 Bisacodyl [Dulcolax] 10 mg RECTAL .PRN X 1 PRN suppos. 10/31/19 Magnesium Hydroxide [Milk Of Magnesia] 30 ml PO .PRN X 1 PRN udc 10/31/19 Melatonin 3 mg PO QHS tab 10/31/19 Senna/Docusate Sodium [Senokot-S] 2 tab PO BID tab 10/31/19 Following Prescrptions Were Given to Patient: Acetaminophen [Tylenol Extra Strength] 1,000 mg PO Q8H #1 tab Primary Care Physician: Fercho Vegas DO [Primary Care Provider] - Please follow up with your Primary Care Physician in: following DC from [facility] Please Follow Up With: Dr Fercho Vegas Please Follow Up With: Romain Hanks-Neurology Please Follow Up With: Enma De Leon Disposition: Asstd Living/Non-Skill NH Minutes spent on discharge:: 35 Patient Condition:: Stable Medical Necessity - Tobacco Use Smoking Status: Never smoker Tobacco Use: Non-smoker Meaningful Use Info Meaningful Use Diagnoses (Choose all that apply): Hemorrhagic CVA - CVA Therapy Assessed for PT,OT and/or ST?: Yes - Ischemic Stroke Antithrombotic order at d/c?: Yes Dx of Atrial fib/flutter?: No Anticoagulant at discharge?: No Reason anticoagulant not ordered: Treatment not Indicated Statins at discharge?: Yes Primary Dx Acute Ischemic CVA?: No IV tPA ordered during stay?: No Reason IV t-PA not ordered: Treatment not Indicated - pt had a hemorrhagic CVA not an ischemic CVA and she was treated acutely at another hospital and admitted to [facility] for rehab Inpatient E&M: [id number] [facility]
== END 2019-11-01 13:45 | disposition home or self-care (01) | DRG 57 ==
LOC: RU 15:24
PROVIDERS: Admitting Provider Internal Medicine; PCP Student in an Organized Health Care Education/Training Program; Referring Provider Internal Medicine; Visit Provider Internal Medicine
DX: I69.398 Other sequelae of cerebral infarction (principal); E03.9 Hypothyroidism, unspecified; M19.90 Unspecified osteoarthritis, unspecified site; I10 Essential (primary) hypertension; K44.9 Diaphragmatic hernia without obstruction or gangrene; J44.9 Chronic obstructive pulmonary disease, unspecified; Z85.828 Personal history of other malignant neoplasm of skin; R29.810 Facial weakness; R45.87 Impulsiveness; R53.1 Weakness; M40.209 Unspecified kyphosis, site unspecified
CPT/HCPCS: 36415; 51702; 70450; 80048; 80053; 80061; 81001; 82306; 82607; 83735; 84436; 84443; 85025; 86038; 86225; 86235; 86592; 87086; 92507; 92523; 92526; 93005; 97110; 97112; 97116; 97162; 97166; 97530; 97535; 97802; 99251; 99285; J7030; J7050; A4216; G0463

== ENCOUNTER → 2019-11-10 05:00 | Outpatient (REF) | payer MEDICARE, OTHER, SELFPAY ==
[2019-11-01 12:00] VITALS: BMI 22.8
[2019-11-10 08:16] LABS: Mean Corp Hgb Conc 30.6 g/dL (32-36); Mean Corpuscular Hgb 27.6 pg (27.0-32.0); Mean Corpuscular Volume 90.5 fL (81-99); Mean Platelet Vol. 10.9 fl (6.2-12.0); Platelet Count 251 K/mm3 (150-450); RBC Distribution Width CV 13.3 % (11.6-14.6); RBC Distribution Width SD 44.1 fl (35.1-43.9); Red Blood Count 3.98 M/mm3 (4.2-5.4); White Blood Count 6.6 K/mm3 (4.4-11.0)
[2019-11-10 08:28] LABS: Anion Gap 5 (5-15); BUN 18 mg/dL (7-18); Calcium,Total 8.8 mg/dL (8.5-10.1); Chloride 106 mmol/L (98-107); Creatinine, Serum 0.58 mg/dL (0.55-1.02); EST Glomerular Filtration Rate 105 mL/min (>60); Est Glom Filt Rate - Afr Amer 127 mL/min (>60); Glucose 88 mg/dL (74-106); Potassium 4.2 mmol/L (3.5-5.1); Sodium Level 140 mmol/L (136-145)
== END ==
LOC: OLS.WHLBEN 05:00
PROVIDERS: PCP Student in an Organized Health Care Education/Training Program; Visit Provider Student in an Organized Health Care Education/Training Program
DX: I61.4 Nontraumatic intracerebral hemorrhage in cerebellum (principal)
CPT/HCPCS: 36415; 80048; 85027

== ENCOUNTER → 2020-01-14 06:00 | Outpatient (REF) | payer MEDICARE, OTHER, SELFPAY ==
[2020-01-14 11:13] LABS: Hematocrit 38.1 % (37-47); Mean Corp Hgb Conc 31.5 g/dL (32-36); Mean Corpuscular Hgb 27.8 pg (27.0-32.0); Mean Corpuscular Volume 88.2 fL (81-99); Mean Platelet Vol. 11.6 fl (6.2-12.0); Platelet Count 292 K/mm3 (150-450); RBC Distribution Width SD 44.6 fl (35.1-43.9); Red Blood Count 4.32 M/mm3 (4.2-5.4); White Blood Count 6.7 K/mm3 (4.4-11.0)
[2020-01-14 11:27] LABS: Vitamin B12 652 pg/mL (211-911)
[2020-01-14 11:29] LABS: Ferritin 89 ng/mL (8-252); Iron 76 ug/dL (50-170); Iron Binding Capacity,Total 330 ug/dL (250-450)
== END ==
LOC: OLS.WHLBEN 06:00
PROVIDERS: PCP Student in an Organized Health Care Education/Training Program; Visit Provider Student in an Organized Health Care Education/Training Program
DX: D50.9 Iron deficiency anemia, unspecified (principal); I61.4 Nontraumatic intracerebral hemorrhage in cerebellum; E78.5 Hyperlipidemia, unspecified; I69.00 Unspecified sequelae of nontraumatic subarachnoid hemorrhage; F01.51 Vascular dementia, unspecified severity, with behavioral disturbance; R60.9 Edema, unspecified
CPT/HCPCS: 36415; 82607; 82728; 83540; 83550; 85027

== ENCOUNTER 2021-03-06 16:44 | Inpatient (IN) | payer MEDICARE, OTHER, SELFPAY ==
[2021-03-06 16:46] VITALS: BP 129/61; PULSE 65; RESP 18; TEMP 36.5; O2SAT 95; BMI 23.0
--- NOTE | 2021-03-06 17:51 | RAD_ITS ---
HISTORY: Trauma, fall, hip injury/Pain EXAMINATION/TECHNIQUE: XR Hip Unilateral with Pelvis when performed; 2-3 Views: COMPARISON: None FINDINGS: BONES/JOINTS: Comminuted and angulated intertrochanteric fracture left femur. Preservation of the joint spaces. No sclerotic or destructive changes observed. SOFT TISSUES: No soft tissue swelling or gas. No radiopaque foreign body. RAD/HIP, UNI W/ Pelvis 2-3 Views IMPRESSION: Comminuted intertrochanteric fracture left femur. at 1855 Reported and signed by: Jordy Belcher MD Electronically Signed: Jordy Belcher MD at 18:54 EDT Tel , Service support ,
--- NOTE | 2021-03-06 17:54 | EDS_ITS ---
HPI HPI - Fall History of Present Illness Chief Complaint: Fall Informant: patient and family Occured/Mechanism Occurred: Today Pain/Injury Quality of Pain: Sharp Current Severity: Mild Maximum Severity: Moderate Narrative Narrative: Patient presents with left hip pain. She was taking 1 step up into her living room. She missed stepped and fell landing on her left hip/buttock area. She never hit her head. Her only anticoagulation is one baby aspirin daily. She has pain in her left hip. She states just laying here she has very little pain and really does not want anything for pain. However she cannot move it without increased pain. She cannot bear weight or walk. She has no history of prior hip injury but does have significant diffuse arthritis. PFSH PFSH Home Medications levothyroxine 100 mcg PO DAILY 10/16/15 [History Last Taken Unknown] ykyiuxyb-trw-QJ-lycopen-lutein [Centrum Silver] 1 tab PO DAILY 10/16/15 [History Last Taken Unknown] Cholecalciferol (VIT D3) 2,500 units PO DAILY 10/23/19 [History Last Taken Unknown] amlodipine 10 mg PO DAILY 10/23/19 [History Last Taken Unknown] atorvastatin 40 mg PO DAILY 10/23/19 [History Last Taken Unknown] acetaminophen 1,000 mg PO Q8H #1 tab 10/31/19 [Rx Last Taken Unknown] bisacodyl 10 mg RECTAL .PRN X 1 PRN suppos. 10/31/19 [Rx Last Taken Unknown] magnesium hydroxide 30 ml PO .PRN X 1 PRN udc 10/31/19 [Rx Last Taken Unknown] melatonin 3 mg PO QHS tab 10/31/19 [Rx Last Taken Unknown] sennosides-docusate sodium 2 tab PO BID tab 10/31/19 [Rx Last Taken Unknown] Allergy/AdvReac Type Severity Reaction Status Date / Time naproxen [From Naprosyn] Allergy Other Verified 03/06/21 16:49 Social History Smoking Status: Never smoker ROS ROS ED Constitutional Constitutional ED: Denies chills or fever(s) Eyes Eyes: Denies change in vision Cardiovascular Cardiovascular: Denies chest pain, palpitations or racing heartbeat Respiratory/Chest Respiratory/Chest: Denies cough or dyspnea Gastrointestinal Gastrointestinal: Denies abdominal pain, nausea or vomiting Genitourinary Genitourinary ED: Denies dysuria Musculoskeletal Musculoskeletal: Reports arthralgias and other Details: See history of present illness. Integumentary Denies rash Neurologic Neurologic: Denies headache(s), paresthesias or weakness Endocrine Endocrinology: Denies polydipsia or polyuria Hematologic/Lymphatic Hematologic/Lymphatic: Denies easy bleeding or easy bruising Allergic/Immunologic Allergic/Immunologic ED: Denies urticaria EXAM Physical Exam Const Vital Signs: 03/06/21 16:46 Temperature 97.7 F L Temperature Source Temporal Pulse Rate 65 Respiratory Rate 18 Blood Pressure 129/61 H Blood Pressure Mean 83 Pulse Ox 95 Oxygen Delivery Method Room Air Positive well nourished and well developed General Appearance ED: well developed and NAD HEENT Reports normocephalic atraumatic; Negative for hematoma Eyes EOMs intact bilaterally Neck full ROM General: Negative for tenderness Chest Wall inspection of chest normal and palpation of chest normal Resp normal respiratory effort and clear to auscultation bilaterally Cardio regular rate and regular rhythm GI non-tender and non-distended Palpation: soft Back/Spine no CVA tenderness Extremity Extremity Narrative: Patient's left leg is shortened and externally rotated. She is surprisingly comfortable with this. No sign of tenderness to the mid thigh on down. No right-sided symptoms. Neuro oriented x3 Sensorium / Orientation: alert Psych mental status grossly normal Skin Lesions: no lesions Rashes: no rashes MDM MDM MDM Narrative Medical decision making narrative: Patient's x-ray verify left intertrochanteric fracture. She does have a mild white count at 14.3 but this may be stress demargination. Baseline and anemia at 11.9. Electrolytes show no marked abnormalities. Urinalysis is pending but she has no UTI symptoms. Chest x-ray shows no acute process. I discussed the case with both Dr. Kapoor and orthopedic physician, Dr. Loja. Patient will be admitted. Covid testing is also sent off. Lab Data Attestation: I reviewed the patient's lab results. Labs: Laboratory Results - last 24 hr 03/06/21 03/06/21 18:05 18:05 WBC 14.3 H RBC 4.32 Hgb 11.9 L Hct 38.3 MCV 88.7 MCH 27.5 MCHC 31.1 L RDW Std Deviation 44.8 H RDW Coeff of Jose J 13.9 Plt Count 244 MPV 11.1 Immature Gran % (Auto) 0.600 Neut % (Auto) 86.1 H Lymph % (Auto) 5.7 L Hampton % (Auto) 7.2 Eos % (Auto) 0.1 Baso % (Auto) 0.3 Absolute Neuts (auto) 12.4 H Absolute Lymphs (auto) 0.82 L Nucleated RBC % 0 Sodium 138 Potassium 3.5 Chloride 104 Carbon Dioxide 26.0 Anion Gap 8 BUN 21 H Creatinine 0.84 Estim Creat Clear Calc 35.17 Est GFR (MDRD) Af Amer 83 Est GFR (MDRD) Non-Af 68 BUN/Creatinine Ratio 24.9 H Glucose 110 H Calcium 9.0 Radiography Diagnostic Testing: Radiology Impression Hip/Pelvis X-Ray 03/06/21 17:51 IMPRESSION: Comminuted intertrochanteric fracture left femur. at 1855 Reported and signed by: Jordy Belcher MD Electronically Signed: Jordy Belcher MD at 18:54 EDT Tel , Service support , Chest X-Ray 03/06/21 18:20 IMPRESSION: No radiographic evidence of acute cardiopulmonary disease. at 1854 Reported and signed by: Jordy Belcher MD Electronically Signed: Jordy Belcher MD at 18:53 EDT Tel , Service support , Discharge Plan Dx/Rx/DC Orders Clinical Impression: Closed intertrochanteric fracture of left femur, Fall from slip, trip, or stumble Disposition Disposition: Acute Care [facility]
[2021-03-06] MEDS: Morphine 2 MG/ML Syringe IV (18:06)
--- NOTE | 2021-03-06 18:20 | RAD_ITS ---
HISTORY: fall, trauma, hip fracture EXAMINATION/TECHNIQUE: XR Chest 1 View: Supine AP chest x-ray COMPARISON: 10/16/15 FINDINGS: LINES/DEVICES: None. LUNGS: No consolidation, edema or effusion. No pneumothorax. Skin fold along the left lung peripherally. MEDIASTINUM AND CARDIOVASCULAR STRUCTURES: Cardiac silhouette not enlarged. Central airways and mediastinal contour are unremarkable. BONES AND SOFT TISSUES: No acute bony abnormalities. RAD/Chest 1 View (Portable) IMPRESSION: No radiographic evidence of acute cardiopulmonary disease. at 1854 Reported and signed by: Jordy Belcher MD Electronically Signed: Jordy Belcher MD at 18:53 EDT Tel , Service support ,
[2021-03-06 18:21] LABS: Absolute Lymphocyte Count 0.82 X10^3/uL (0.83-4.51); Absolute Neutrophil Count 12.4 X10^3/uL (2.0-7.7); Basophil# 0.04 X10^3/uL; Basophil% 0.3 % (0-1); Eosinophil# 0.02 X10^3/uL; Eosinophils% 0.1 % (0-5); Hematocrit 38.3 % (37-47); Hemoglobin 11.9 g/dL (12.0-15.0); Lymphocyte # 0.82 X10^3/ul (0.83-4.51); Lymphocyte % 5.7 % (19-41); Mean Corp Hgb Conc 31.1 g/dL (32-36); Mean Corpuscular Hgb 27.5 pg (27.0-32.0); Mean Corpuscular Volume 88.7 fL (81-99); Mean Platelet Vol. 11.1 fl (6.2-12.0); Monocyte# 1.03 X10^3/uL; Monocyte% 7.2 % (0-10); NRBC Flagged by Analyzer 0 % (0-5); Neutrophil # 12.35 X10^3/uL (2.7-7.7); Neutrophil % 86.1 % (47-70); Platelet Count 244 K/mm3 (150-450); RBC Distribution Width CV 13.9 % (11.6-14.6); RBC Distribution Width SD 44.8 fl (35.1-43.9); Red Blood Count 4.32 M/mm3 (4.2-5.4); White Blood Count 14.3 K/mm3 (4.4-11.0)
[2021-03-06 18:35] LABS: Anion Gap 8 (5-15); BUN 21 mg/dL (7-18); BUN/Creat Ratio 24.9 RATIO (10-20); Chloride 104 mmol/L (98-107); Creatinine, Serum 0.84 mg/dL (0.55-1.02); EST Glomerular Filtration Rate 68 mL/min (>60); Est Glom Filt Rate - Afr Amer 83 mL/min (>60); Estimated Creatinine Clearance 35.17 ml/min; Glucose 110 mg/dL (74-106); Potassium 3.5 mmol/L (3.5-5.1); Sodium Level 138 mmol/L (136-145)
--- NOTE | 2021-03-06 19:46 | HP.PCM.HOS_ITS ---
HPI - General General Date of Admission: 03/06/21 HPI Narrative JUNIE WICK, is a 85 F with a PMH as outlined who presents with a complaint of left hip pain after a mechanical fall today. She was taking a step up into her living room, and misstepped and fell, landing on her left hip and buttock; she didn't hit her head. She was unable to get up on her own, and subsequently couldn't weight bear or walk. She also had pain that was difficult to bear. REview of systems was otherwise negative. Vitals in [facility] ED were BP of 129/61, [place] of 65, RR of 18 and temp of 97.7F. CBC showed Hb of 11.9, wbc of 14.3, platelets of 244 and BMP shwoed sodium of 138, potassium of 3.5, Cr of 0.84. Xray of the left hip showed communuted intertrochanteric fracture of the left femur. CXR showed no acute cardiopulmonary process. She is being admitted to be managed for debility due to left femoral fracture from mechanical fall. [facility] Medical History Hearing loss, left Osteoporosis TIA (transient ischemic attack) Home Medications Centrum Silver 1 tab PO DAILY 10/16/15 [History Last Taken 03/06/21] Cholecalciferol (VIT D3) 60 mcg PO DAILY 10/23/19 [History Last Taken 03/06/21] amlodipine 5 mg PO DAILY 10/23/19 [History Last Taken 03/06/21] atorvastatin 40 mg PO QHS 10/23/19 [History Last Taken 03/04/21] aspirin 81 mg PO DAILY 03/06/21 [History Last Taken 03/06/21] levothyroxine [Synthroid] 100 mcg PO MOTUWETHFRSA 03/06/21 [History Last Taken 03/05/21] Allergy/AdvReac Type Severity Reaction Status Date / Time naproxen [From Naprosyn] Allergy Other Verified 03/06/21 16:49 Surgical History (Updated 03/06/21 @ 21:30 by Riccardo Davis) H/O tubal ligation Social History Smoking Status: Never smoker ROS Constitutional Constitutional: Reports weakness; Denies anorexia, chills, fatigue, fever(s) or malaise Eyes Eyes: Denies double vision ENT HEENT: Denies nasal congestion, nasal discharge or sore throat Cardiovascular Cardiovascular: Denies chest pain, dyspnea on exertion, edema, lightheadedness, orthopnea, palpitations, rapid heart rate or syncope Respiratory/Chest Respiratory/Chest: Denies cough, productive cough, shortness of breath at rest or shortness of breath with exertion Gastrointestinal Gastrointestinal: Denies abdominal pain, constipation, diarrhea, melena, nausea or vomiting Genitourinary Genitourinary: Denies burning urination or dysuria Musculoskeletal Musculoskeletal: Reports joint pain; Denies arthralgias, back pain, joint swelling, myalgias or neck pain Neurologic Neurologic: Denies abnormal gait, confusion, dizziness, focal weakness, seizures or syncope Psychiatric Psychiatric: Denies anxiety or depression Vital Signs Vital Signs Vital Signs: 03/06/21 16:46 Temperature 97.7 F L Temperature Source Temporal Pulse Rate 65 Respiratory Rate 18 Blood Pressure 129/61 H Blood Pressure Mean 83 Pulse Ox 95 Oxygen Delivery Method Room Air Weight Weight: 118 lb Body Mass Index (BMI) 23.0 Physical Exam Const alert, oriented x3 and no apparent distress General Appearance: cooperative HEENT normocephalic, head/scalp atraumatic, hearing grossly normal bilaterally and moist oral mucous membranes Eyes PERRL, EOMs intact bilaterally and conjunctivae normal Neck no lymphadenopathy, supple and no JVD Resp normal respiratory effort, no retractions, no use of accessory muscles and clear to auscultation bilaterally Cardio regular rate, regular rhythm, S1 normal heart sound, S2 normal heart sound and no murmurs GI normal to inspection, nondistended, normoactive bowel sounds, soft to palpation, non-tender and non-distended Extremity normal to inspection Extremity Narrative: LLE shortened and externally rotated, tender to touch at left hip. Peripheral Pulses: Yes pulses 2+ throughout Skin no rashes or lesions noted Neuro oriented x3 Sensorium / Orientation: awake and alert Psych affect normal Results Lab / Micro Data Result Diagrams: 03/07/21 05:04 03/07/21 05:04 Labs: Laboratory Results - last 24 hr 03/06/21 18:05: WBC 14.3 H, RBC 4.32, Hgb 11.9 L, Hct 38.3, MCV 88.7, MCH 27.5, MCHC 31.1 L, RDW Std Deviation 44.8 H, RDW Coeff of Jose J 13.9, Plt Count 244, MPV 11.1, Immature Gran % (Auto) 0.600, Neut % (Auto) 86.1 H, Lymph % (Auto) 5.7 L, [place] % (Auto) 7.2, Eos % (Auto) 0.1, Baso % (Auto) 0.3, Absolute Neuts (auto) 12.4 H, Absolute Lymphs (auto) 0.82 L, Nucleated RBC % 0 03/06/21 18:05: Sodium 138, Potassium 3.5, Chloride 104, Carbon Dioxide 26.0, Anion Gap 8, BUN 21 H, Creatinine 0.84, Estim Creat Clear Calc 35.17, Est GFR (MDRD) Af Amer 83, Est GFR (MDRD) Non-Af 68, BUN/Creatinine Ratio 24.9 H, Glucose 110 H, Calcium 9.0 Radiology Impression Hip/Pelvis X-Ray 03/06/21 17:51 IMPRESSION: Comminuted intertrochanteric fracture left femur. at 1855 Reported and signed by: Jordy Belcher MD Electronically Signed: Jordy Belcher MD at 18:54 EDT Tel , Service support , Chest X-Ray 03/06/21 18:20 IMPRESSION: No radiographic evidence of acute cardiopulmonary disease. at 1854 Reported and signed by: Jordy Belcher MD Electronically Signed: Jordy Belcher MD at 18:53 EDT Tel , Service support , Assessment & Plan Assessment/Plan (1) Closed intertrochanteric fracture of left femur: (2) Debility: PLAN: #Left femoral fracture due to mechanical fall * admit to med surg * imaging showed comminuted intertrochanteric left femoral fracture * admit to med surg * PO tylenol, IV morphine nad po oxycodone prn for pain * consult orthopedics; informed by ED * PT/OT consult. Fall precautions * NSQIP score for serious complication (6.7%) is an cardiac complication (0.3%) is less than the average for her age. Patient's risk stratification for surgery places her at moderate risk for surgery. Discussed with patient and her son. * #Debility due to mechanical fall: as above #Hypertension; on amlodipine #Hypothyroidism: on synthroid #Hyperlipidemia; on statin DVT prophylaxis: lovenox Code status: full code * Patient counseled extensively about different types of CODE STATUS including f ull code, DNR CCA and DNR CCA. Patient elects to be full code. Total mjmd-oz-amcv time 16 minutes. Charges/Coding Visit Charges Inpatient E&M: 50130 Init Hosp L3 Procedures Hospitalists Procedures: 85577 Advncd Care Plan 30 Min
[2021-03-06 20:10] VITALS: BP 144/79; PULSE 71; RESP 18; TEMP 37.1; O2SAT 95
--- NOTE | 2021-03-06 20:51 | EKG12_ITS ---
Test Reason : DYSRHYTHMIA Blood Pressure : / mmHG Vent. Rate : 074 BPM Atrial Rate : 074 BPM P-R Int : 136 ms QRS Dur : 084 ms QT Int : 432 ms P-R-T Axes : 075 -47 048 degrees QTc Int : 479 ms Normal sinus rhythm Left anterior fascicular block Abnormal ECG Confirmed by WILD KERR, SHREE ([id number]), rewrite editor FRANCOIS CORDERO ([id number]) on 03/07/2021 11:48:51 AM Referred By: FIORDALIZA Confirmed By:SHREE ROME MD
[2021-03-06 21:07] VITALS: BMI 21.9
[2021-03-06 21:10] VITALS: BP 142/59; PULSE 71; RESP 18; TEMP 36.5; O2SAT 99
[2021-03-06] MEDS: 0.9% Normal Saline 1,000 ML 125 ML IV (23:14)
[2021-03-06] MEDS: 0.9% Saline Lock 10 ML Syringe IV (23:18)
[2021-03-07] VITALS (10 sets, daily range): BP systolic 112–141; BP diastolic 54–67; PULSE 65–85; RESP 16–18; TEMP 36.4–38; O2SAT 92–98; BMI 21.9
[2021-03-07 05:36] LABS: Absolute Lymphocyte Count 1.06 X10^3/uL (0.83-4.51); Basophil# 0.01 X10^3/uL; Basophil% 0.1 % (0-1); Hematocrit 30.4 % (37-47); Hemoglobin 9.7 g/dL (12.0-15.0); Lymphocyte # 1.06 X10^3/ul (0.83-4.51); Lymphocyte % 9.6 % (19-41); Mean Corp Hgb Conc 31.9 g/dL (32-36); Mean Corpuscular Hgb 27.4 pg (27.0-32.0); Mean Corpuscular Volume 85.9 fL (81-99); Mean Platelet Vol. 11.1 fl (6.2-12.0); Monocyte# 0.99 X10^3/uL; NRBC Flagged by Analyzer 0 % (0-5); Neutrophil # 8.96 X10^3/uL (2.7-7.7); Platelet Count 213 K/mm3 (150-450); RBC Distribution Width CV 13.8 % (11.6-14.6); RBC Distribution Width SD 43.3 fl (35.1-43.9); Red Blood Count 3.54 M/mm3 (4.2-5.4); White Blood Count 11.1 K/mm3 (4.4-11.0)
[2021-03-07 05:59] LABS: Anion Gap 8 (5-15); BUN 15 mg/dL (7-18); BUN/Creat Ratio 28.5 RATIO (10-20); Calcium,Total 8.3 mg/dL (8.5-10.1); Chloride 105 mmol/L (98-107); Creatinine, Serum 0.53 mg/dL (0.55-1.02); EST Glomerular Filtration Rate 117 mL/min (>60); Est Glom Filt Rate - Afr Amer 142 mL/min (>60); Estimated Creatinine Clearance 29.54 ml/min; Glucose 109 mg/dL (74-106); Potassium 3.7 mmol/L (3.5-5.1); Sodium Level 136 mmol/L (136-145)
[2021-03-07 06:13] LABS: Thyroid Stim Hormone (TSH) 0.63 uIU/mL (0.358-3.74)
[2021-03-07] MEDS: Levothyroxine 100 MCG Tablet PO (06:53)
[2021-03-07] MEDS: 0.9% Normal Saline 1,000 ML 125 ML IV (06:57)
[2021-03-07] MEDS: oxyCODONE 5 MG Tablet PO ×2 (07:08→20:35)
--- NOTE | 2021-03-07 09:09 | PN.HOSP_ITS ---
Subjective Subjective Patient was seen and examined. She is going for surgery this afternoon. Her pain is fairly controlled. No other acute events overnight Objective Data Objective Data Vital Signs: Vital Signs Temp Pulse Resp BP Pulse Ox 100.4 F H 84 18 128/64 H 96 03/07/21 04:30 03/07/21 04:30 03/07/21 04:30 03/07/21 04:30 03/07/21 04:30 Oxygen Delivery Method Room Air Weight: 50.8 kg Body Mass Index (BMI) 21.9 Intake & Output: Intake and Output for Last 24 Hours 03/05/21 03/06/21 03/07/21 23:59 23:59 23:59 Intake Total 1204.58 / 1204.58 Output Total 900 / 900 Balance 304.58 / 304.58 Lab / Micro Data Result Diagrams: 03/07/21 05:04 03/07/21 05:04 Labs: Laboratory Results - last 24 hr 03/06/21 18:05: WBC 14.3 H, RBC 4.32, Hgb 11.9 L, Hct 38.3, MCV 88.7, MCH 27.5, MCHC 31.1 L, RDW Std Deviation 44.8 H, RDW Coeff of Jose J 13.9, Plt Count 244, MPV 11.1, Immature Gran % (Auto) 0.600, Neut % (Auto) 86.1 H, Lymph % (Auto) 5.7 L, [place] % (Auto) 7.2, Eos % (Auto) 0.1, Baso % (Auto) 0.3, Absolute Neuts (auto) 12.4 H, Absolute Lymphs (auto) 0.82 L, Nucleated RBC % 0 03/06/21 18:05: Sodium 138, Potassium 3.5, Chloride 104, Carbon Dioxide 26.0, Anion Gap 8, BUN 21 H, Creatinine 0.84, Estim Creat Clear Calc 35.17, Est GFR (MDRD) Af Amer 83, Est GFR (MDRD) Non-Af 68, BUN/Creatinine Ratio 24.9 H, Glucose 110 H, Calcium 9.0 03/07/21 05:04: WBC 11.1 H, RBC 3.54 L, Hgb 9.7 L, Hct 30.4 L, MCV 85.9, MCH 27.4, MCHC 31.9 L, RDW Std Deviation 43.3, RDW Coeff of Jose J 13.8, Plt Count 213, MPV 11.1, Immature Gran % (Auto) 0.300, Neut % (Auto) 81.0 H, Lymph % (Auto) 9.6 L, [place] % (Auto) 9.0, Eos % (Auto) 0.0, Baso % (Auto) 0.1, Absolute Neuts (auto) 9.0 H, Absolute Lymphs (auto) 1.06, Nucleated RBC % 0 03/07/21 05:04: Sodium 136, Potassium 3.7, Chloride 105, Carbon Dioxide 23.0, Anion Gap 8, BUN 15, Creatinine 0.53 L, Estim Creat Clear Calc 29.54, Est GFR (MDRD) Af Amer 142, Est GFR (MDRD) Non-Af 117, BUN/Creatinine Ratio 28.5 H, Glucose 109 H, Calcium 8.3 L 03/07/21 05:04: TSH 0.63 03/07/21 05:04: Blood Type A POSITIVE, Antibody Screen NEGATIVE Micro: Microbiology 03/06/21 20:05 Mucosa - Nose SARS-CoV-2 Antigen (Rapid) - Final Radiography Diagnostic Testing: Radiology Impression Hip/Pelvis X-Ray 03/06/21 17:51 IMPRESSION: Comminuted intertrochanteric fracture left femur. at 0530 Reported and signed by: Jordy Belcher MD Electronically Signed: Jordy Belcher MD at 18:54 EDT Tel , Service support , Chest X-Ray 03/06/21 18:20 IMPRESSION: No radiographic evidence of acute cardiopulmonary disease. at 9234 Reported and signed by: Jordy Belcher MD Electronically Signed: Jordy Belcher MD at 18:53 EDT Tel , Service support , Physical Exam Narrative Physical exam: General: Alert, Oriented x3, Cooperative, No apparent distress, frail HEENT: Atraumatic Oral: Moist Mucosa Neck: Supple Lungs: Clear to auscultation Cardiovascular: HS I+II, regular, no murmurs Abdomen: Bowel Sounds Present, Soft, Non Tender Extremities: Left lower extremity is externally rotated, tenderness over the left hip Assessment & Plan Assessment/Plan (1) Hypertension: QUALIFIERS: Hypertension type: primary hypertension Qualified Code(s): I10 - Essential (primary) hypertension (2) Hypothyroidism: QUALIFIERS: Hypothyroidism type: unspecified Qualified Code(s): E03.9 - Hypothyroidism, unspecified (3) Hemorrhagic cerebrovascular accident (CVA): (4) Closed intertrochanteric fracture of left femur: QUALIFIERS: Encounter type: initial encounter Fracture alignment: displaced Qualified Code(s): S72.142A - Displaced intertrochanteric fracture of left femur, initial encounter for closed fracture (5) Fall from slip, trip, or stumble: QUALIFIERS: Encounter type: subsequent encounter Qualified Code(s): W01.0XXD - Fall on same level from slipping, tripping and stumbling wit hout subsequent striking against object, subsequent encounter (6) Debility: PLAN: 1. Acute left comminuted intertrochanteric femoral fracture, traumatic secondary to mechanical fall Pain is fairly controlled, surgery planned for today Will follow up on orthopedic recommendations 2. Debility secondary to #1 3. Rest of chronic medical conditions remained stable Charges/Coding Visit Charges Inpatient E&M: 57407 Subs Hosp L2
[2021-03-07 11:28] LABS: Color, Urine Yellow (Yellow); Glucose, Dipstick Normal (Normal); Ketone-Dipstick 5 mg/dl (Negative); Leukocyte Esterase-Dipstick Negative /ul (Negative); Nitrite-Dipstick Negative (Negative); Occult Blood-Urine Negative /ul (Negative); Protein-Dipstick Negative (Negative); Specific Gravity, Urine 1.015 (1.002-1.030); Urine Bilirubin Dipstick Negative (Negative); Urine Clarity Sl. Cloudy (Clear); Urine Urobilinogen Normal (Normal); Urine pH 6.5 (5.0 - 8.0)
--- NOTE | 2021-03-07 11:55 | CASEMGMT ---
ZACK ORR Assessment: Face to Face with pt for initial transition planning/care coordination assessment. ZACK ORR introduced self and role at [facility], pt voices understanding and consents to assessment. Pt is A/O x4 and answers all questions appropriately at this time. Pt lying in bed with two sons at bedside. Care providers, pharmacy, and demographics verified/updated. Admitting Dx: left femoral fx PCP: [facility] Specialists: Demario, neurosurgeon; Helen, podiatry; Jesus, eyes Preferred Pharmacy: [facility] Insurance: [employer] Prescription Benefit: yes LW/HPOA: Pt has LW/DPOA on file. Pt DPOA is son Mk Johnson. LNOK: Mk Johnson, son; Heladio Johnson, son; Renaldo and Ammy Kitchen, friends Living Arrangements: Pt lives alone in a single story condo with 2 steps to enter with a rail. Pt reports being I with ADL's prior to fall. Transportation: Pt does not drive. SonMk transports pt to medical appts. DME/HHC/SNF: Pt has a cane and walker. She uses the can when out and about. Pt has had [facility] in the past and also has been at [facility]. Pt has a cg one afternoon a week who transports her to her hair appts and errands. Pt receives meals on wheels once a week that provides frozen meals for the week. Pt son Mk checks on pt nightly and often on the weekends. Pt states she feels that she needs some short term therapy after her surgery. Pt states she would like to go home, but thinks she can't right away. Pt son's are in agreement. ZACK ORR provided a list of HHC and SNF providers including quality and resource use data and consistent with the patient?s preferred geographic region, medical needs, and insurance network. The patient?s preferred provider for SNF is 1. [facility] 2. [facility] 3. [facility]. Pt states no further concerns/needs. CM to follow. Advised pt to ask CM if any further question/concerns/needs arise, voices understanding. Bonny Hannah notified of pt SNF request. Pt Goal: SNF s/t for therapy post surgery Plan: [facility] s/t for therapy.
--- NOTE | 2021-03-07 12:52 | CASEMGMT ---
Addendum entered by Enma Hannah 03/07/21 13:08: SW received call from Di at [facility] stating they are able to accept pt. SW to fax PT/OT when available, likely tomorrow as pt is is having surgery today. Original Note: Social Work Note SW received referral for SNF placement. Pt's preferred provider is 1. [facility] 2. [facility] 3. [facility]. Pt with hip fracture, going for surgery later today. ALBER placed a call to Di at [facility] and updated her on referral. Di stated to go ahead and fax referral as she will go over financials. ALBER faxed referral to [facility]. Plan: [facility] pending acceptance Enma Hannah BREAKFAST BAR ATTENDANT, STORE DETECTIVE
[2021-03-07] MEDS: Lactated Ringers 1,000 ML 100 ML IV ×2 (14:30→23:44)
--- NOTE | 2021-03-07 15:07 | CHAPLAIN ---
Type of Pastoral Visit _x__ Initial Visit ___ Follow-up Visit ___ On-call Visit ___ General Patient Visit ___ Spiritual Assessment ___ Family Conference ___ Bereavement ___ Rapid Response ___ Code Blue ___ Other (describe below) Pastoral Care Referral From _x__ Patient ___ Family ___ Nurse ___ Physician ___ Choirmaster ___ Access Control Specialist ___ Other (describe below) Sacrament/Intervention _x__ Active listening ___ Anointing ___ Religion ___ Bereavement ___ Communion ___ Marielena exploration ___ ___ Life review _x__ Prayer ___ Reconciliation ___ Sacrament of Sick _x__ Supportive presence ___ Wedding ___ Other (describe below) Pastoral Comments patient to be going to surgery at any minute; brief review of life and then prayer; transport came; pt requests follow up visit
[2021-03-07] MEDS: Cefazolin 2 GM in 0.9% Normal Saline 100 ML IV (15:32)
--- NOTE | 2021-03-07 15:48 | RAD_ITS ---
HISTORY: ORIF, HIP, SHORT GAMMA NAIL LEFT EXAMINATION/TECHNIQUE: XR Hip Unilateral with Pelvis when performed; 2-3 Views: COMPARISON: Left hip series 03/06/21 FINDINGS: 4 intraoperative spot films of the left hip show placement of a femoral nail fixator for the intertrochanteric fracture. RAD/Hip Min 2 Views (Portable) IMPRESSION: Intraoperative spot films obtained during ORIF left intertrochanteric femoral fracture. at 1741 Reported and signed by: Jordy Belcher MD Electronically Signed: Jordy Belcher MD at 17:40 EDT Tel , Service support ,
--- NOTE | 2021-03-07 16:51 | CON.PCM_ITS ---
Assessment & Plan Assessment/Plan (1) Closed left hip fracture: PLAN: Her diagnosis and treatment options regarding her displaced comminuted left hip fracture discussed with her and her family. She did wish to have closed reduction and internal fixation. Risk of surgery including but not limited to from operative or postoperative complications. Risk of anesthetic complications such as heart attacks, strokes, seizures, or . Risk of infections. Risk of damage to nerves arteries tendons. Risk of sarbjit dvertent fractures or dislocations. Risk of bone or wound healing complications. Possibility of nonunion malunion pain stiffness weakness. Possible need for further surgery such as hardware removal. Risk of DVT PE and other potential complications could lead to or disability explained. No guarantees were stated or implied. All of their questions were answered. Appropriate informed consent was obtained and signed for surgical intervention. Patient had been evaluated by the hospitalist service as well as the anesthesia department. She was deemed cleared for surgery. We will plan Ancef for perioperative antibiotic. We will plan to use aspirin for DVT prevention postoperatively This note was generated with [employer] dictation software. It may contain incorrect words, spelling, and punctuation that were not noted in checking the note before signing. HPI Consult Data Date of Consult: 03/07/21 HPI Narrative HPI Narrative: JUNIE WICK, is a 85 F who presents after falling at her home yesterday. She denies dizziness. Denies chest pain or shortness of breath. She thinks she caught her foot on her step. She was brought to the hospital and diagnosed with a hip fracture. Orthopedics was appropriately consulted. She denies severe pre-existing hip pain. She does have severe pre-existing knee pain from arthritis. [facility] Medical History (Updated 03/07/21 @ 16:[address] Silverio Loja MD) Hearing loss, left Osteoporosis TIA (transient ischemic attack) Home Medications Centrum Silver 1 tab PO DAILY 10/16/15 [History Last Taken 03/06/21] Cholecalciferol (VIT D3) 60 mcg PO DAILY 10/23/19 [History Last Taken 03/06/21] amlodipine 5 mg PO DAILY 10/23/19 [History Last Taken 03/06/21] atorvastatin 40 mg PO QHS 10/23/19 [History Last Taken 03/04/21] aspirin 81 mg PO DAILY 03/06/21 [History Last Taken 03/06/21] levothyroxine [Synthroid] 100 mcg PO MOTUWETHFRSA 03/06/21 [History Last Taken 03/05/21] Allergy/AdvReac Type Severity Reaction Status Date / Time naproxen [From Naprosyn] Allergy Other Verified 03/06/21 16:49 Surgical History (Updated 03/06/21 @ 21:30 by Riccardo Davis) H/O tubal ligation Social History Smoking Status: Never smoker ROS ROS Narrative Review of systems: Patient is somewhat a poor historian. Seen with her sons present. She denies recent changes to eyes ears nose or throat heart or lungs bowel or bladder. Physical Exam Narrative Left hip has shortening and external rotation. Left hip has mild bruising and swelling. Right hip has no pain on palpation. Right hip has no pain with range of motion. Left hip with not stress due to known fracture. No severe pain on palpation at the knees or legs. Negative Homans' sign. Distal pulses are intact. She can wiggle her toes and ankle. X-rays AP pelvis AP and lateral of left hip shows a comminuted displaced intertrochanteric left hip fracture. No severe left hip joint arthritis is seen. No obvious right hip fracture. Laboratory work and vital signs reviewed Lab / Micro Data Result Diagrams: 03/07/21 05:04 03/07/21 05:04 Labs: Laboratory Results - last 24 hr 03/06/21 18:05: WBC 14.3 H, RBC 4.32, Hgb 11.9 L, Hct 38.3, MCV 88.7, MCH 27.5, MCHC 31.1 L, RDW Std Deviation 44.8 H, RDW Coeff of Jose J 13.9, Plt Count 244, MPV 11.1, Immature Gran % (Auto) 0.600, Neut % (Auto) 86.1 H, Lymph % (Auto) 5.7 L, [place] % (Auto) 7.2, Eos % (Auto) 0.1, Baso % (Auto) 0.3, Absolute Neuts (auto) 12.4 H, Absolute Lymphs (auto) 0.82 L, Nucleated RBC % 0 03/06/21 18:05: Sodium 138, Potassium 3.5, Chloride 104, Carbon Dioxide 26.0, Anion Gap 8, BUN 21 H, Creatinine 0.84, Estim Creat Clear Calc 35.17, Est GFR (MDRD) Af Amer 83, Est GFR (MDRD) Non-Af 68, BUN/Creatinine Ratio 24.9 H, Glucose 110 H, Calcium 9.0 03/07/21 05:04: WBC 11.1 H, RBC 3.54 L, Hgb 9.7 L, Hct 30.4 L, MCV 85.9, MCH 27.4, MCHC 31.9 L, RDW Std Deviation 43.3, RDW Coeff of Jose J 13.8, Plt Count 213, MPV 11.1, Immature Gran % (Auto) 0.300, Neut % (Auto) 81.0 H, Lymph % (Auto) 9.6 L, [place] % (Auto) 9.0, Eos % (Auto) 0.0, Baso % (Auto) 0.1, Absolute Neuts (auto) 9.0 H, Absolute Lymphs (auto) 1.06, Nucleated RBC % 0 03/07/21 05:04: Sodium 136, Potassium 3.7, Chloride 105, Carbon Dioxide 23.0, Anion Gap 8, BUN 15, Creatinine 0.53 L, Estim Creat Clear Calc 29.54, Est GFR (MDRD) Af Amer 142, Est GFR (MDRD) Non-Af 117, BUN/Creatinine Ratio 28.5 H, Glucose 109 H, Calcium 8.3 L 03/07/21 05:04: TSH 0.63 03/07/21 05:04: Blood Type A POSITIVE, Antibody Screen NEGATIVE 03/07/21 11:05: Urine Color Yellow, Urine Clarity Sl. Cloudy, Urine pH 6.5, Ur Specific [place] 1.015, Urine Protein Negative, Urine Glucose (UA) Normal, Urine Ketones 5 H, Urine Occult Blood Negative, Urine Nitrite Negative, Urine Bilirubin Negative, Urine Urobilinogen Normal, Ur Leukocyte Esterase Negative Micro: Microbiology 03/06/21 20:05 Mucosa - Nose SARS-CoV-2 Antigen (Rapid) - Final Radiology Impression Hip/Pelvis X-Ray 03/06/21 17:51 IMPRESSION: Comminuted intertrochanteric fracture left femur. at 1855 Reported and signed by: Jordy Belcher MD Electronically Signed: Jordy Belcher MD at 18:54 EDT Tel , Service support , Chest X-Ray 03/06/21 18:20 IMPRESSION: No radiographic evidence of acute cardiopulmonary disease. at 1854 Reported and signed by: Jordy Belcher MD Electronically Signed: Jodry Belcher MD at 18:53 EDT Tel , Service support ,
--- NOTE | 2021-03-07 16:55 | OP.PCM_ITS ---
Problems Associated Problem List Diagnoses (1) Closed left hip fracture: Operative Report Date of Procedure: 03/07/21 Preoperative diagnosis: Left hip displaced unstable intertrochanteric fracture Postoperative diagnosis: Same Title of operation: Left hip open reduction internal fixation, intramedullary nail fixation, locked Surgeon: Dr. Silverio Loja Athlete Manager: Carolyn Quiros PA-C Anesthesia: General Medications: Ancef Indications for surgery: Patient is an 85-year-old female sustained a hip fracture yesterday. Patient and their family explained diagnosis and treatment options. Patient evaluated by the medical services. Patient did wish to have surgery. Appropriate informed consent obtained and signed. Findings: Patient had a displaced unstable intertrochanteric hip fracture. They underwent standard reduction, internal fixation using a Tanika short gamma nail . X-rays taken throughout. office clerk assistant, physician financial planning assistant, was utilized throughout the entire procedure. They were vital to the procedure from beginning to end. They help with patient transfer, patient padding and positioning, fracture reduction, maintenance of fracture reduction, internal fixation of implants, wound closure, bandage application, patient transfer. Without surgical services manager, surgical time would have been significantly increased and surgical outcome could have been less optimal. Procedure: Patient was taken to the operating room. Placed under a general anesthetic and transferred to the operating table with the help of the financial planning assistant. With the help of the financial planning assistant patient was prepped and padded for surgery. Operative side foot was well-padded and placed in the traction boot. Uninjured lower extremity was abducted and flexed out of harms way. JUAN hose and SCDs utilized. Fluoroscopy was brought in. With the help of the financial planning assistant and manipulation of the limb, reduction was nicely obtained as verified under AP lateral and oblique fluoroscopic images. . Operative hip/thigh was prepped padded draped in usual orthopedic sterile fashion for the procedure. Longitudinal incision was made just proximal to the greater trochanter. Taken through skin and subcutaneous tissue. Sharp awl was placed on the tip of the greater trochanter. Position verified under AP and lateral fluoroscopic images. This was then taken down inside the bone. Slightly bent ball-tipped guide myrna was then placed from the tip of the greater trochanter into the intra-medullary canal of the femur. Its position verified radiographically. Reamer was then done over the tip of this with the help of the financial planning assistant holding the soft tissue protector appropriately. Once reaming was done we placed the short 125? angle device over the guidepin. Due to femoral canal size we then proceeded with removing the nail and reaming up to a size 13 distally. We then reintroduced the nail and now this was easily introduced. Guide myrna removed. Outrigger device was utilized to position a guidepin from the lateral cortex of the femur across the fracture site and into the femoral head in a good position centrally, as noted on AP lateral and oblique fluoroscopic images. This was measured. Appropriate reaming done. Appreciate length lag screw was placed from the la teral cortex of the femur into the femoral head. A small amount of the screw was noted to be protruding laterally as planned. No cartilage penetration of the femoral head noted on any x-ray. Fracture was then compressed with the outrigger device. Proximal cap screw was placed by the financial planning assistant seated down completely, confirmed, and then loosened one fourth turn. We then used the outrigger device to place distal cross locking screw under standard technique. This was confirmed to be of adequate length in good position on AP and lateral images. Outrigger device removed. Final set of AP and lateral proximal x-rays taken and saved. Incisions thoroughly irrigated. Closing by the financial planning assistant with deep 0 Vicryl, mid layer 0 Vicryl, inverted 2-0 Vicryl, skin jay. Puncture wounds closed with inverted 2-0 Vicryl and jay. Xeroform 4 x 4's ABD tape applied. Patient was awoken from their anesthetic, transferred back to their own bed with the help of the financial planning assistant and into recovery room in satisfactory condition. Patient will continue to be admitted to the hospital under the hospitalist service. Ancef 2 g was given IV preoperatively. We will plan to use aspirin 81 mg twice a day for DVT prevention. This note was generated with [employer] dictation software. It may contain incorrect words, spelling, and punctuation that were not noted in checking the note before signing.
[2021-03-07] MEDS: Atorvastatin Calcium 40 MG Tablet PO (20:36)
[2021-03-07] MEDS: Cefazolin 1 GM/50 ML BAG IV (21:45)
[2021-03-08 02:39] VITALS: BP 111/56; PULSE 81; RESP 18; TEMP 36.4; O2SAT 98
[2021-03-08] MEDS: Cefazolin 1 GM/50 ML BAG IV (05:25)
[2021-03-08] MEDS: Levothyroxine 100 MCG Tablet PO (05:27)
[2021-03-08] MEDS: oxyCODONE 5 MG Tablet PO (05:28)
[2021-03-08 05:29] LABS: Absolute Lymphocyte Count 1.51 X10^3/uL (0.83-4.51); Absolute Neutrophil Count 6.3 X10^3/uL (2.0-7.7); Basophil# 0.02 X10^3/uL; Basophil% 0.2 % (0-1); Eosinophil# 0.01 X10^3/uL; Eosinophils% 0.1 % (0-5); Hematocrit 26.4 % (37-47); Hemoglobin 8.2 g/dL (12.0-15.0); Lymphocyte # 1.51 X10^3/ul (0.83-4.51); Lymphocyte % 16.5 % (19-41); Mean Corp Hgb Conc 31.1 g/dL (32-36); Mean Corpuscular Hgb 27.4 pg (27.0-32.0); Mean Corpuscular Volume 88.3 fL (81-99); Mean Platelet Vol. 10.8 fl (6.2-12.0); Monocyte# 1.33 X10^3/uL; Monocyte% 14.5 % (0-10); NRBC Flagged by Analyzer 0 % (0-5); Neutrophil # 6.25 X10^3/uL (2.7-7.7); Neutrophil % 68.3 % (47-70); Platelet Count 170 K/mm3 (150-450); RBC Distribution Width CV 13.7 % (11.6-14.6); RBC Distribution Width SD 44.3 fl (35.1-43.9); Red Blood Count 2.99 M/mm3 (4.2-5.4); White Blood Count 9.2 K/mm3 (4.4-11.0)
[2021-03-08 06:19] LABS: ALB/GLOB Ratio 0.9 RATIO (0.9-2.4); AST(SGOT) 30 U/L (15-37); Alanine Aminotransfer ALT/SGPT 26 U/L (13-56); Albumin, Serum 2.5 g/dL (3.2-5.0); Alkaline Phosphatase 67 U/L (45-117); Anion Gap 6 (5-15); BUN 16 mg/dL (7-18); Calcium,Total 7.9 mg/dL (8.5-10.1); Chloride 104 mmol/L (98-107); Creatinine, Serum 0.67 mg/dL (0.55-1.02); EST Glomerular Filtration Rate 89 mL/min (>60); Est Glom Filt Rate - Afr Amer 108 mL/min (>60); Estimated Creatinine Clearance 29.54 ml/min; Globulin 2.7 g/dL (2.2-4.2); Glucose 96 mg/dL (74-106); Potassium 3.9 mmol/L (3.5-5.1); Protein, Total 5.2 g/dL (6.4-8.2); Sodium Level 136 mmol/L (136-145)
[2021-03-08 06:34] VITALS: BP 103/52; PULSE 83; RESP 16; TEMP 36.8; O2SAT 99
--- NOTE | 2021-03-08 07:13 | PN.ORTHO_ITS ---
Subjective Subjective Patient is postoperative day #1 from left hip fracture surgery open reduction internal fixation. She denies severe pain. Pain currently 0 out of 10. With moving pain can be 4-5 out of 10. Denies chest pain or shortness of breath. Denies productive cough. Does answer most questions appropriately Objective Data Objective Data Vital Signs: Vital Signs Temp Pulse Resp BP Pulse Ox 98.2 F 83 16 103/52 L 99 03/08/21 06:34 03/08/21 06:34 03/08/21 06:34 03/08/21 06:34 03/08/21 06:34 Oxygen Flow Rate (L/min) 1.5 Oxygen Delivery Method Nasal Cannula Weight: 50.8 kg Body Mass Index (BMI) 21.9 Intake & Output: Intake and Output for Last 24 Hours 03/06/21 03/07/21 03/08/21 23:59 23:59 23:59 Intake Total 3576.25 / 3576.25 150 / 150 Output Total 1650 / 1650 300 / 300 Balance 1926.25 / 1926.25 -150 / -150 Lab / Micro Data Attestation: I reviewed the patient's lab results. Result Diagrams: 03/08/21 05:20 03/08/21 05:20 Labs: Laboratory Results - last 24 hr 03/07/21 11:05: Urine Color Yellow, Urine Clarity Sl. Cloudy, Urine pH 6.5, Ur Specific [place] 1.015, Urine Protein Negative, Urine Glucose (UA) Normal, Urine Ketones 5 H, Urine Occult Blood Negative, Urine Nitrite Negative, Urine Bilirubin Negative, Urine Urobilinogen Normal, Ur Leukocyte Esterase Negative 03/08/21 05:20: WBC 9.2, RBC 2.99 L, Hgb 8.2 L, Hct 26.4 L, MCV 88.3, MCH 27.4, MCHC 31.1 L, RDW Std Deviation 44.3 H, RDW Coeff of Jose J 13.7, Plt Count 170, MPV 10.8, Immature Gran % (Auto) 0.400, Neut % (Auto) 68.3, Lymph % (Auto) 16.5 L, [place] % (Auto) 14.5 H, Eos % (Auto) 0.1, Baso % (Auto) 0.2, Absolute Neuts (auto) 6.3, Absolute Lymphs (auto) 1.51, Nucleated RBC % 0 03/08/21 05:20: Sodium 136, Potassium 3.9, Chloride 104, Carbon Dioxide 26.0, Anion Gap 6, BUN 16, Creatinine 0.67, Estim Creat Clear Calc 29.54, Est GFR (MDRD) Af Amer 108, Est GFR (MDRD) Non-Af 89, BUN/Creatinine Ratio 24.0 H, Glucose 96, Calcium 7.9 L, Total Bilirubin 0.70, AST 30, ALT 26, Alkaline Phosphatase 67, Total Protein 5.2 L, Albumin 2.5 L, Globulin 2.7, Albumin/Globulin Ratio 0.9 Micro: Microbiology 03/06/21 20:05 Mucosa - Nose SARS-CoV-2 Antigen (Rapid) - Final Radiography Diagnostic Testing: Radiology Impression Hip X-Ray 03/07/21 15:48 IMPRESSION: Intraoperative spot films obtained during ORIF left intertrochanteric femoral fracture. at 1741 Reported and signed by: Jordy Belcher MD Electronically Signed: Jordy Belcher MD at 17:40 EDT Tel , Service support , Physical Exam Narrative Left hip bandages on clean and dry. There is one small nickel sized area of dried bloody drainage at the top of the Mepilex bandage. No obvious active bleeding. Mild thigh bruising. No calf pain or swelling bilaterally. Negative Homans' sign bilaterally. Legs are neurovascular intact. Good active motion toes and ankles. Left hip flexion to 45 degrees causes mild discomfort. Left hip internal and external rotation 10 degrees causes no severe pain Assessment & Plan Assessment/Plan (1) Closed left hip fracture: PLAN: Patient postoperative day #1 from left hip open reduction internal fixation. Continue Lovenox as ordered by hospitalist for DVT prevention. Continue aspirin 81 mg daily. Physical therapy and Occupational Therapy have been ordered. Patient can weight-bear as tolerated. Recommend ice to left hip as needed pain. JUAN hose and SCDs. Postoperative blood loss anemia. Not unexpected based on patient's fracture pattern/surgery. Continue to be followed by hospitalist service Mepilex dressing can be removed in 5 to 7 days. Okay to shower over current bandage. Follow-up in orthopedic office in 2 weeks for x-rays, evaluation, staple removal. Orthopedically signing off. Can be notified if further intervention is needed
[2021-03-08] MEDS: Multivitamins,Ther W-Minerals Tablet 1 TABLET PO (08:42)
[2021-03-08] MEDS: Aspirin 81 MG TAB.CHEW PO (08:42)
[2021-03-08] MEDS: Cholecalciferol (VIT D3) 25 MCG TABLET (1,000 UNITS) 50 MCG PO (08:42)
[2021-03-08] MEDS: Enoxaparin 40 MG/0.4 ML Syringe SC (08:42)
[2021-03-08] MEDS: amLODIPine 5 MG Tablet PO (08:42)
[2021-03-08 10:03] VITALS: O2SAT 98
[2021-03-08 10:28] VITALS: PULSE 90
[2021-03-08 10:31] LABS: Bedside Glucose 129 mg/dL (70-110)
[2021-03-08] MEDS: Lactated Ringers 1,000 ML 100 ML IV (10:36)
[2021-03-08 10:45] VITALS: O2SAT 98
--- NOTE | 2021-03-08 11:41 | PCM.PN.HOSP ---
Objective Data Objective Data Vital Signs: Vital Signs Temp Pulse Resp BP Pulse Ox 98.2 F 90 16 103/52 L 98 03/08/21 06:34 03/08/21 10:28 03/08/21 06:34 03/08/21 06:34 03/08/21 10:45 Oxygen Flow Rate (L/min) 2 Oxygen Delivery Method Nasal Cannula Weight: 50.8 kg Body Mass Index (BMI) 21.9 Intake & Output: Intake and Output for Last 24 Hours 03/06/21 03/07/21 03/08/21 23:59 23:59 23:59 Intake Total 3576.25 / 3576.25 1150 / 1150 Output Total 1650 / 1650 300 / 300 Balance 1926.25 / 1926.25 850 / 850 Lab / Micro Data Result Diagrams: 03/08/21 05:20 03/08/21 05:20 Labs: Laboratory Results - last 24 hr 03/08/21 05:20: WBC 9.2, RBC 2.99 L, Hgb 8.2 L, Hct 26.4 L, MCV 88.3, MCH 27.4, MCHC 31.1 L, RDW Std Deviation 44.3 H, RDW Coeff of Jose J 13.7, Plt Count 170, MPV 10.8, Immature Gran % (Auto) 0.400, Neut % (Auto) 68.3, Lymph % (Auto) 16.5 L, [place] % (Auto) 14.5 H, Eos % (Auto) 0.1, Baso % (Auto) 0.2, Absolute Neuts (auto) 6.3, Absolute Lymphs (auto) 1.51, Nucleated RBC % 0 03/08/21 05:20: Sodium 136, Potassium 3.9, Chloride 104, Carbon Dioxide 26.0, Anion Gap 6, BUN 16, Creatinine 0.67, Estim Creat Clear Calc 29.54, Est GFR (MDRD) Af Amer 108, Est GFR (MDRD) Non-Af 89, BUN/Creatinine Ratio 24.0 H, Glucose 96, Calcium 7.9 L, Total Bilirubin 0.70, AST 30, ALT 26, Alkaline Phosphatase 67, Total Protein 5.2 L, Albumin 2.5 L, Globulin 2.7, Albumin/Globulin Ratio 0.9 03/08/21 10:25: POC Glucose 129 H Micro: Microbiology 03/06/21 20:05 Mucosa - Nose SARS-CoV-2 Antigen (Rapid) - Final Radiography Diagnostic Testing: Radiology Impression Hip X-Ray 03/07/21 15:48 IMPRESSION: Intraoperative spot films obtained during ORIF left intertrochanteric femoral fracture. at 1741 Reported and signed by: Jordy Belcher MD Electronically Signed: Jordy Belcher MD at 17:40 EDT Tel , Service support ,
[2021-03-08 11:59] LABS: Iron 25 ug/dL (50-170); Iron Binding Capacity,Total 285 ug/dL (250-450); PERCENT IRON SATURATION 8.8 % (15.0-55.0)
--- NOTE | 2021-03-08 12:33 | PCM.TXEXTCAR ---
Diet 03/08/21 02:13 Diet: Cardiac - Heart Healthy Is pt able to select menu?: Yes Routine Orders/Code Status Keep PO Greater than or Equal to (%): 94 Routine Lab Work: CBC (within 3 days) and BMP (within 3 days) Code Status: Full Code Wound(s) LEFT ANTERIOR HIP: Wound Type: Surgical Incision Therapies Weight Bearing: Weight bearing as tolerated Extremity Affected:: Left Lower Physical Therapy: Eval and Treat Occupational Therapy: Eval and Treat Problem/Diagnosis (1) Closed left hip fracture: Status: Acute Allergies/Procedures Done in Hospital Allergies naproxen [From Naprosyn] Allergy (Verified 03/06/21 16:49) Other Procedures: - (s/p left intertrochanteric ORIF on 03/07/21) Type of Care/Length of Stay Estimated LOS: Convalescent Care Less Than 30 days Type of Care Needed: Skilled Rehab Potential: Good Prognosis: Good Additional Orders/Day of Discharge Day of Discharge: 03/08/21 Dietary and Speech Recommendations Dietitian Recommendations/Changes: Recommend regular - general diet after surgery and when medically appropriate. Will add ensure 120mL PO 4x/day at [facility] after surgery. Anaid Quintanilla MS, RD, LD Discharge Plan Admission Admit Date/Time: 03/06/21 20:04 Primary Reason for Your Visit: Acute left hip fracture Attending Provider: Sonia Hillman Primary Care Provider: Fercho Vegas Consulting Providers: Silverio Loja Instructions Additional Instructions / Restrictions: Mepilex dressing can be removed in 5 to 7 days. Okay to shower over current bandage. Follow-up in orthopedic office in 2 weeks for x-rays, evaluation, staple removal. Discharge Orders/Prescriptions Prescriptions: New acetaminophen 500 mg Tablet 1,000 mg PO TID Qty: 0 RF: 0 magnesium hydroxide 400 mg/5 mL Suspension 30 ml PO DAILY PRN PRN (Reason: Constipation) Qty: 0 RF: 0 ascorbic acid (vitamin C) 500 mg Tablet 500 mg PO BIDCM Qty: 0 RF: 0 ferrous sulfate [FeroSul] 325 mg (65 mg iron) Tablet 325 mg PO 1200,1700 Qty: 0 RF: 0 docusate sodium [DOK] 100 mg Capsule 100 mg PO BID PRN PRN (Reason: constipation) Qty: 0 RF: 0 Ensure Enlive 0.08 gram-1.5 kcal/mL Liquid 120 ml PO 4X/DAY Qty: 0 RF: 0 Continued Centrum Silver 1 EACH tablet 1 tab PO DAILY RF: 0 atorvastatin 40 MG tablet 40 mg PO QHS RF: 0 amlodipine 10 MG tablet 5 mg PO DAILY RF: 0 Cholecalciferol (VIT D3) 60 mcg PO DAILY RF: 0 aspirin 81 mg Tablet 81 mg PO DAILY RF: 0 levothyroxine [Synthroid] 100 mcg Tablet 100 mcg PO MOTUWETHFRSA RF: 0 Referrals / Follow Up: Fercho Vegas DO [Primary Care Provider] - Silverio Loja MD [STAFF PHYSICIAN] - Within 2 Weeks Anselmo Monahan MD [STAFF PHYSICIAN] - 06/30/21 8:00 am (BRING INSURANCE CARD COPAY MAIL BACK PAPER WORK FILLED OUT THAT YOU RECIEVE IN MAIL) Disposition Disposition (needs filled in before D/C Order can be placed): Long-Term Facility
--- NOTE | 2021-03-08 12:37 | DS.PCM_ITS ---
Providers Date of Admission: 03/06/21 Date of Discharge: 03/08/21 Primary Care Physician: Dr. Fercho Vegas, Consultations 03/06/21 20:56 Consult: Orthopedics Routine Consulting Provider: Silverio Loja Reason for Consult: left femoral fracture EMERGENT Consult: No MD Notified: Yes Date Notified: 03/06/21 Time Notified: 20:04 Method of Notification: Text Reason For Visit: LEFT FEMORAL FRACTURE Diagnosis Discharge Diagnosis (1) Closed left hip fracture: Status: Acute Code(s): S72.002A - Fracture of unspecified part of neck of left femur, initial encounter for closed fracture (2) Hypertension: Status: Chronic Code(s): I10 - Essential (primary) hypertension Qualifiers: Hypertension type: primary hypertension Qualified Code(s): I10 - Essential (primary) hypertension (3) Hypothyroidism: Status: Chronic Code(s): E03.9 - Hypothyroidism, unspecified Qualifiers: Hypothyroidism type: unspecified Qualified Code(s): E03.9 - Hypothyroidism, unspecified (4) Debility: Status: Acute Code(s): R53.81 - Other malaise Medications at Discharge Home Medications Centrum Silver 1 tab PO DAILY 10/16/15 Cholecalciferol (VIT D3) 60 mcg PO DAILY 10/23/19 amlodipine 5 mg PO DAILY 10/23/19 atorvastatin 40 mg PO QHS 10/23/19 aspirin 81 mg PO DAILY 03/06/21 levothyroxine [Synthroid] 100 mcg PO MOTUWETHFRSA 03/06/21 acetaminophen 1,000 mg PO TID #0 tab 03/08/21 ascorbic acid (vitamin C) 500 mg PO BIDCM #0 tab 03/08/21 docusate sodium [DOK] 100 mg PO BID PRN PRN #0 cap 03/08/21 ferrous sulfate [FeroSul] 325 mg PO 1200,1700 #0 tab 03/08/21 food supplemt, lactose-reduced [Ensure Enlive] 120 ml PO 4X/DAY #0 ml 03/08/21 magnesium hydroxide 30 ml PO DAILY PRN PRN #0 ml 03/08/21 Hospital Course Operations None Procedures - (s/p left hip ORIF on 03/07/21) Summary of Care Provided Minutes Spent on Discharge: 45 Hospital Course: 85-year-old female who presented with left hip pain after mechanical fall. Patient was taking a step up into her living room and missed stepped and fell landing on her left hip and buttock. X-ray of the left hip showed comminuted intertrochanteric fracture of the left femur. Patient was admitted to the hospital. She underwent left hip ORIF on 03/07/21. Postoperatively, patient was stable. She felt a little confused with oxycodone. Oxycodone was discontinued. On the day of discharge, patient had a slight vasovagal syncope that lasted for a few seconds as she was trying to get up with therapy. Her vitals were stable. Her iron stores were low. She was started on oral iron, stool softeners and vitamin C. she will follow up with orthopedics in 2 weeks. Physical Exam Narrative Physical exam: General: Alert, Oriented x3, Cooperative, No apparent distress, frail HEENT: Atraumatic Oral: Moist Mucosa Neck: Supple Lungs: Clear to auscultation Cardiovascular: HS I+II, regular, no murmurs Abdomen: Bowel Sounds Present, Soft, Non Tender Extremities: Left hip is swollen, dressing is intact Weight / BMI Weight Weight: 50.8 kg Body Mass Index (BMI) 21.9 ABG / Lab / Microbiology Data Result Diagrams: 03/08/21 05:20 03/08/21 05:20 Laboratory: Laboratory Results - last 24 hr 03/08/21 05:20: WBC 9.2, RBC 2.99 L, Hgb 8.2 L, Hct 26.4 L, MCV 88.3, MCH 27.4, MCHC 31.1 L, RDW Std Deviation 44.3 H, RDW Coeff of Jose J 13.7, Plt Count 170, MPV 10.8, Immature Gran % (Auto) 0.400, Neut % (Auto) 68.3, Lymph % (Auto) 16.5 L, [place] % (Auto) 14.5 H, Eos % (Auto) 0.1, Baso % (Auto) 0.2, Absolute Neuts (auto) 6.3, Absolute Lymphs (auto) 1.51, Nucleated RBC % 0 03/08/21 05:20: Sodium 136, Potassium 3.9, Chloride 104, Carbon Dioxide 26.0, Anion Gap 6, BUN 16, Creatinine 0.67, Estim Creat Clear Calc 29.54, Est GFR (MDRD) Af Amer 108, Est GFR (MDRD) Non-Af 89, BUN/Creatinine Ratio 24.0 H, Gl ucose 96, Calcium 7.9 L, Total Bilirubin 0.70, AST 30, ALT 26, Alkaline Phosp hatase 67, Total Protein 5.2 L, Albumin 2.5 L, Globulin 2.7, Albumin/Globulin Ratio 0.9 03/08/21 05:20: Iron 25 L, TIBC 285, Iron Saturation 8.8 L 03/08/21 10:25: POC Glucose 129 H Microbiology: Microbiology 03/06/21 20:05 Mucosa - Nose SARS-CoV-2 Antigen (Rapid) - Final Radiography Diagnostic Testing: Radiology Impression Hip X-Ray 03/07/21 15:48 IMPRESSION: Intraoperative spot films obtained during ORIF left intertrochanteric femoral fracture. at 1741 Reported and signed by: Jordy Belcher MD Electronically Signed: Jordy Belcher MD at 17:40 EDT Tel , Service support , D/C Instructions Discharge Diet: Low fat / Low cholesterol and 2000 mg Sodium Diet Meaningful Use Info Meaningful Use Diagnoses (Choose all that apply): None applicable Discharge Plan Admission Admit Date/Time: 03/06/21 20:04 Primary Reason for Your Visit: Acute left hip fracture Attending Provider: Sonia Hillman Primary Care Provider: Fercho Vegas Consulting Providers: Silverio Loja Instructions Additional Instructions / Restrictions: Mepilex dressing can be removed in 5 to 7 days. Okay to shower over current bandage. Follow-up in orthopedic office in 2 weeks for x-rays, evaluation, staple removal. Discharge Orders/Prescriptions Prescriptions: New acetaminophen 500 mg Tablet 1,000 mg PO TID Qty: 0 RF: 0 magnesium hydroxide 400 mg/5 mL Suspension 30 ml PO DAILY PRN PRN (Reason: Constipation) Qty: 0 RF: 0 ascorbic acid (vitamin C) 500 mg Tablet 500 mg PO BIDCM Qty: 0 RF: 0 ferrous sulfate [FeroSul] 325 mg (65 mg iron) Tablet 325 mg PO 1200,1700 Qty: 0 RF: 0 docusate sodium [DOK] 100 mg Capsule 100 mg PO BID PRN PRN (Reason: constipation) Qty: 0 RF: 0 Ensure Enlive 0.08 gram-1.5 kcal/mL Liquid 120 ml PO 4X/DAY Qty: 0 RF: 0 Continued Centrum Silver 1 EACH tablet 1 tab PO DAILY RF: 0 atorvastatin 40 MG tablet 40 mg PO QHS RF: 0 amlodipine 10 MG tablet 5 mg PO DAILY RF: 0 Cholecalciferol (VIT D3) 60 mcg PO DAILY RF: 0 aspirin 81 mg Tablet 81 mg PO DAILY RF: 0 levothyroxine [Synthroid] 100 mcg Tablet 100 mcg PO MOTUWETHFRSA RF: 0 Referrals / Follow Up: Fercho Vegas DO [Primary Care Provider] - Silverio Loja MD [STAFF PHYSICIAN] - Within 2 Weeks Anselmo Monahan MD [STAFF PHYSICIAN] - 06/30/21 8:00 am (BRING INSURANCE CARD [employer] MAIL BACK PAPER WORK FILLED OUT THAT YOU RECIEVE IN MAIL) Disposition Disposition (needs filled in before D/C Order can be placed): Residential Facility Charges/Coding Visit Charges Inpatient E&M: 10388 Disch Hosp
[2021-03-08] MEDS: Acetaminophen 500 MG Tablet 1000 MG PO (13:29)
[2021-03-08] MEDS: Ferrous Sulfate 325 MG Tablet PO (13:30)
--- NOTE | 2021-03-08 13:30 | CASEMGMT ---
Social Work Note SW in to speak with pt and pt's son Mk. SW updated pt and Mk that [facility] is able to accept pt when pt is medically cleared. Pt asked if she was staying at [facility] for rehabilitation. SW informed pt that yesterday pt had stated first choice was [facility] and second choice was TCU. SW informed pt and Mk that this worker can check with [facility] TCU to inquire about bed availability, acceptance, etc. Pt and Mk agreeable to this worker checking with [facility] TCU. ALBER placed a call to Violetta with TCU and provided referral. Violetta questioned if pt would be appropriate for [facility]. ALBER in to speak with pt, Mk and pt's other son Heladio. ALBER spoke with pt, Mk and Heladio about difference between TCU and [facility]. Pt and pt's son's to discuss options. ALBER placed a call to Violetta with TCU, asked for pt to evaluated for [facility]. ALBER received update that [facility] physician states pt is more appropriate for TCU. ALBER in to speak with pt. ALBER updated pt, Mk and Heladio that it was determined pt is more appropriate for TCU. Pt, Mk and Heladio all agreeable to [facility] TCU. ALBER placed a call to Di at [facility] and left message to disregard referral. Physician updated. Plan: TCU today Enma Hannah [employer]A WORKER, B[employer]IAL [employer]TER
[2021-03-08 13:34] VITALS: BP 115/62; PULSE 75; RESP 18; TEMP 37.1; O2SAT 95
--- NOTE | 2021-03-08 14:03 | PHA.DC.MR ---
Pharmacy Service has performed discharge medication reconciliation for this patient. The patient's discharge medication list was reviewed for discrepancies and discrepancies were resolved. Home Medications Centrum Silver 1 tab PO DAILY 10/16/15 Cholecalciferol (VIT D3) 60 mcg PO DAILY 10/23/19 amlodipine 5 mg PO DAILY 10/23/19 atorvastatin 40 mg PO QHS 10/23/19 aspirin 81 mg PO DAILY 03/06/21 levothyroxine [Synthroid] 100 mcg PO MOTUWETHFRSA 03/06/21 acetaminophen 1,000 mg PO TID #0 tab 03/08/21 ascorbic acid (vitamin C) 500 mg PO BIDCM #0 tab 03/08/21 docusate sodium [DOK] 100 mg PO BID PRN PRN #0 cap 03/08/21 ferrous sulfate [FeroSul] 325 mg PO 1200,1700 #0 tab 03/08/21 food supplemt, lactose-reduced [Ensure Enlive] 120 ml PO 4X/DAY #0 ml 03/08/21 magnesium hydroxide 30 ml PO DAILY PRN PRN #0 ml 03/08/21
--- NOTE | 2021-03-08 14:33 | CHAPLAIN ---
Type of Pastoral Visit ___ Initial Visit _x__ Follow-up Visit ___ On-call Visit ___ General Patient Visit ___ Spiritual Assessment ___ Family Conference ___ Bereavement ___ Rapid Response ___ Code Blue ___ Other (describe below) Pastoral Care Referral From _x__ Patient x Family ___ Nurse ___ Physician ___ Senior Software Quality Analyst ___ Tow Truck Dispatcher ___ Other (describe below) Sacrament/Intervention _x__ Active listening ___ Anointing ___ Protestant ___ Bereavement ___ Communion ___ Marielena exploration ___ _x__ Life review _x__ Prayer ___ Reconciliation ___ Sacrament of Sick _x__ Supportive presence ___ Wedding ___ Other (describe below) Pastoral Comments patient expresses concern post surgery about her recovery and facing the changes coming to her life; son of pt is with her and tries to encourage her; offer pt to think on her blessings which she says she has in life; pt to be moved to TCU; family and pt request ongoing visits while in TCU
--- NOTE | 2021-03-08 14:41 | CASEMGMT ---
Pt screened with [facility] Palliative Care Screening Tool due to Strata 3, pt did not meet criteria.
--- NOTE | 2021-03-08 14:50 | NURSING ---
Report called to Mary Ann DIXON.
== END 2021-03-08 15:12 | DRG 481 ==
LOC: ED 19:56 → MS3 20:09
PROVIDERS: Anesthesiology; Orthopaedic Surgery; Admitting Provider Student in an Organized Health Care Education/Training Program; Emergency Provider Emergency Medicine; PCP Student in an Organized Health Care Education/Training Program; Visit Provider Internal Medicine
PROC: 0QS706Z Reposition Left Upper Femur with Intramedullary Internal Fixation Device, Open Approach (ICD-10-PCS; CPT 27245; principal; 2021-03-07 07:30)
DX: S72.142A Displaced intertrochanteric fracture of left femur, initial encounter for closed fracture (principal); D62 Acute posthemorrhagic anemia; W01.0XXA Fall on same level from slipping, tripping and stumbling without subsequent striking against object, initial encounter; I10 Essential (primary) hypertension; E03.9 Hypothyroidism, unspecified; H91.92 Unspecified hearing loss, left ear; Z66 Do not resuscitate; M19.90 Unspecified osteoarthritis, unspecified site; M81.0 Age-related osteoporosis without current pathological fracture; Z79.82 Long term (current) use of aspirin; Z86.73 Personal history of transient ischemic attack (TIA), and cerebral infarction without residual deficits; Y93.9 Activity, unspecified; Y92.009 Unspecified place in unspecified non-institutional (private) residence as the place of occurrence of the external cause; Z79.890 Hormone replacement therapy; Z88.6 Allergy status to analgesic agent; Z98.51 Tubal ligation status
CPT/HCPCS: 36415; 71045; 73502; 76000; 80048; 80053; 81002; 82962; 83540; 83550; 84443; 85025; 86850; 86900; 86901; 87426; 93005; 97163; 97167; 99285; C1713; J7030; J7120; A4216; J2405

== ENCOUNTER 2021-03-08 15:18 | Inpatient (IN) | payer MEDICARE, OTHER, SELFPAY ==
[2021-03-08 11:22] VITALS: BMI 21.9
[2021-03-08 15:36] VITALS: BP 107/53; PULSE 74; PULSE 95; RESP 16; RESP 18; TEMP 36.8; O2SAT 93; BMI 22.7
[2021-03-08] MEDS: Ferrous Sulfate 325 MG Tablet PO (18:30)
[2021-03-08] MEDS: Ascorbic Acid 500 MG Tablet PO (18:31)
--- NOTE | 2021-03-08 22:03 | HP.PCM_ITS ---
HPI - General General Date of Admission: 03/08/21 HPI Narrative 03/06/2021 JUNIE WICK, is a 85 Female who presents to [facility] with fall. Left hip pain, fell on left hip/buttock area. No head injury, No loss of consciousness. Unable to bear weight. X-ray showed left hip fracture. WBC 11.9. UA negative, Chest X-ray negative. 03/06/2021 Admit to Hospital. Pain control. PT/OT for debility. Prepare for surgery. 03/07/2021 Pain fairly controlled. 03/07/2021 Dr. Silverio Loja performed left hip open reduction internal fixation, intramedullary nail, locked. 03/08/2021 Oxycodone stopped due to confusion. Vasovagal syncope during therapy. Iron deficiency anemia treated with oral iron, Vitamin C. 03/08/2021 Admit to TCU with debility, here for rehabilitation, strengthening, prior to discharge home alone. [facility] Medical History (Updated 03/08/21 @ 22:[address] Maurizio Ramírez MD) Hearing loss, left Osteoporosis TIA (transient ischemic attack) Home Medications Centrum Silver 1 tab PO DAILY 10/16/15 [History Last Taken 03/06/21] Cholecalciferol (VIT D3) 60 mcg PO DAILY 10/23/19 [History Last Taken 03/06/21] amlodipine 5 mg PO DAILY 10/23/19 [History Last Taken 03/06/21] atorvastatin 40 mg PO QHS 10/23/19 [History Last Taken 03/04/21] aspirin 81 mg PO DAILY 03/06/21 [History Last Taken 03/06/21] levothyroxine [Synthroid] 100 mcg PO MOTUWETHFRSA 03/06/21 [History Last Taken 03/05/21] acetaminophen 1,000 mg PO TID 03/08/21 [History Last Taken Unknown] ascorbic acid (vitamin C) 500 mg PO BIDCM 03/08/21 [History Last Taken Unknown] docusate sodium [DOK] 100 mg PO BID PRN PRN #0 cap 03/08/21 [Rx Last Taken Unknown] ferrous sulfate [FeroSul] 325 mg PO 1200,1700 03/08/21 [History Last Taken Unknown] food supplemt, lactose-reduced [Ensure Enlive] 120 ml PO 4X/DAY 03/08/21 [History Last Taken Unknown] magnesium hydroxide 30 ml PO DAILY PRN PRN #0 ml 03/08/21 [Rx Last Taken Unknown] Allergy/AdvReac Type Severity Reaction Status Date / Time naproxen [From Naprosyn] Allergy Other Verified 03/06/21 16:49 Surgical History (Updated 03/08/21 @ 22:[address] Maurizio Ramírez MD) H/O tubal ligation Status post open reduction and internal fixation (ORIF) of fracture Social History (Updated 03/08/21 @ 22:[address] Maurizio Ramírez MD) household members: none Smoking Status: Never smoker ROS Constitutional Constitutional: Denies chills, fever(s) or weight gain ENT HEENT: Denies headache(s), nasal congestion or nasal discharge Cardiovascular Cardiovascular: Denies chest pain or palpitations Respiratory/Chest Respiratory/Chest: Denies cough, excessive phlegm production or shortness of breath with exertion Gastrointestinal Gastrointestinal: Denies abdominal pain, nausea or vomiting Genitourinary Genitourinary: Denies dysuria Musculoskeletal Musculoskeletal: Denies joint pain or joint swelling Integumentary Integumentary: Denies rash or wounds Neurologic Neurologic: Denies focal weakness, numbness or tingling Psychiatric Psychiatric: Reports auditory hallucinations; Denies anxiety, depression, homicidal ideation or suicidal ideation Vital Signs Vital Signs Vital Signs: 03/08/21 15:36 Temperature 98.3 F Temperature Source Temporal Pulse Rate 95 Pulse Rhythm Irregular Pulse Strength Normal (2+) Respiratory Rate 18 Respiratory Effort Normal Respiratory Depth Normal Respiratory Pattern Normal Blood Pressure 107/53 L Blood Pressure Mean 71 Blood Pressure Source Monitor Blood Pressure Position Semi-Fowlers Blood Pressure Location Right Arm Pulse Ox 93 Oxygen Delivery Method Room Air Weight Weight: 52.617 kg Body Mass Index (BMI) 22.7 Physical Exam Const alert and oriented x3 General Appearance: cooperative HEENT normocephalic Eyes PERRL and EOMs intact bilaterally Neck supple, no JVD and no carotid bruits Resp normal respiratory effort, normal air movement and clear to auscultation bilaterally Cardio regular rate and regular rhythm GI normal to inspection, nondistended, normoactive bowel sounds, non-tender and non-distended Extremity normal capillary refill General Extremity: Negative for edema Skin no rashes or lesions noted General Skin Exam: no breakdown Psych affect normal Appearance: appropriate Assessment & Plan Assessment/Plan (1) Debility: (2) Closed left hip fracture: (3) Syncope: (4) Iron deficiency anemia: (5) Hypothyroidism: (6) Vitamin D deficiency: (7) Hypertension: (8) Hyperlipidemia: (9) Insomnia: PLAN: 85 year old female with below past medical history hospitalized for left hip fracture, underwent open reduction internal fixation, intramedullary nail 03/07/[address] Silverio Loja, complicated by syncope, iron deficiency anemia, admitted to TCU with debility, here for rehabilitation, strengthening, prior to discharge home alone. * Debility - PT/OT. * Pain - Tylenol 1000MG TID, Tramadol 50MG Q6H PRN pain (6-10). * Bowel - Miralax 17GM daily, Senna/colace 1 tablet twice daily, Dulcolax 10MG daily PRN. * Adult immunization - Administer Prevnar 13, Pneumovax 23, Fluzone, COVID19 vaccine as appropriate. * DVT prophylaxis - Lovenox 30MG sc daily. * Hypertension - Amlodipine 5MG daily. * Vitamin C deficiency - Vitamin C 500MG BIDCM. * CV prophylaxis - Aspirin 81MG daily. * Hyperlipidemia - Atorvastatin 40MG at bedtime. * Vitamin D deficiency - D3 50MCG daily. * Nutrition - Ensure Enlive 120ML 4x/day. * Iron deficiency anemia - Ferrous sulfate 325MG twice daily. * Hypothyroidism - Levothyroxine 100MCG daily 6 days/week. * Nutrition - MVI daily. * Thrush - Nystatin 500,000 5ML swish and swallow 4x/day x 10 days.
[2021-03-08] MEDS: Atorvastatin Calcium 40 MG Tablet PO (22:21)
[2021-03-08] MEDS: Acetaminophen 500 MG Tablet 1000 MG PO (22:22)
[2021-03-08] MEDS: NYSTATIN 500,000 UNIT/5 ML UDC 500000 UNIT PO (22:23)
--- NOTE | 2021-03-09 01:58 | NURSING ---
Pt c/o nausea, given francesco romain. Able to take and keep down meds and francesco romain. No emesis at this time.
[2021-03-09 05:43] LABS: Absolute Lymphocyte Count 1.38 X10^3/uL (0.83-4.51); Absolute Neutrophil Count 7.7 X10^3/uL (2.0-7.7); Basophil# 0.01 X10^3/uL; Basophil% 0.1 % (0-1); Eosinophil# 0.03 X10^3/uL; Eosinophils% 0.3 % (0-5); Hematocrit 23.5 % (37-47); Hemoglobin 7.4 g/dL (12.0-15.0); Lymphocyte # 1.38 X10^3/ul (0.83-4.51); Lymphocyte % 13.1 % (19-41); Mean Corp Hgb Conc 31.5 g/dL (32-36); Mean Corpuscular Hgb 27.7 pg (27.0-32.0); Mean Platelet Vol. 10.5 fl (6.2-12.0); Monocyte# 1.38 X10^3/uL; Monocyte% 13.1 % (0-10); NRBC Flagged by Analyzer 0 % (0-5); Neutrophil % 72.9 % (47-70); Platelet Count 173 K/mm3 (150-450); RBC Distribution Width CV 13.6 % (11.6-14.6); RBC Distribution Width SD 44.3 fl (35.1-43.9); Red Blood Count 2.67 M/mm3 (4.2-5.4); White Blood Count 10.6 K/mm3 (4.4-11.0)
[2021-03-09 05:59] LABS: Anion Gap 5 (5-15); BUN 15 mg/dL (7-18); BUN/Creat Ratio 20.5 RATIO (10-20); Calcium,Total 8.3 mg/dL (8.5-10.1); Chloride 101 mmol/L (98-107); Creatinine, Serum 0.73 mg/dL (0.55-1.02); EST Glomerular Filtration Rate 80 mL/min (>60); Est Glom Filt Rate - Afr Amer 97 mL/min (>60); Estimated Creatinine Clearance 34.16 ml/min; Glucose 112 mg/dL (74-106); Potassium 4.2 mmol/L (3.5-5.1); Sodium Level 134 mmol/L (136-145)
[2021-03-09] MEDS: amLODIPine 5 MG Tablet PO (06:26)
[2021-03-09] MEDS: NYSTATIN 500,000 UNIT/5 ML UDC 500000 UNIT PO ×4 (06:26→22:26)
[2021-03-09] MEDS: Levothyroxine 100 MCG Tablet PO (06:26)
[2021-03-09] MEDS: Polyethylene Glycol 3350 17 GM PACKET PO (06:26)
[2021-03-09] MEDS: Acetaminophen 500 MG Tablet 1000 MG PO ×3 (06:26→22:25)
[2021-03-09] MEDS: Senna/Docusate Sodium 1 Tablet PO ×2 (06:26→17:27)
[2021-03-09 07:04] VITALS: BP 130/58; PULSE 88; RESP 14; TEMP 37.2
[2021-03-09] MEDS: Ascorbic Acid 500 MG Tablet PO ×2 (08:24→17:25)
[2021-03-09] MEDS: Multivitamins,Ther W-Minerals Tablet 1 TABLET PO (08:24)
[2021-03-09] MEDS: Aspirin 81 MG TAB.CHEW PO (08:24)
[2021-03-09 10:24] VITALS: BP 85/40; PULSE 66
[2021-03-09 10:37] VITALS: BP 142/53; PULSE 75
[2021-03-09] MEDS: Ferrous Sulfate 325 MG Tablet PO ×2 (11:40→17:26)
[2021-03-09] MEDS: Tuberculin,Purif.prot.deriv. 50 TU/ML Vial 0.1 ML ID (11:45)
[2021-03-09 14:12] VITALS: BP 135/46; PULSE 77; RESP 17; TEMP 37; O2SAT 94
--- NOTE | 2021-03-09 14:33 | NURSING ---
1300-soap suds enema given per MD order. pt tolerated enema with minimal discomfort. watery BM noted with small amount of formed stool. pt continues to appear distended. states nausea slightly improved at this time. will monitor.
--- NOTE | 2021-03-09 15:13 | PHA.CONS_ITS ---
Progress Note - Pharmacy Subjective: TCU Admission Objective: Allergies naproxen [From Naprosyn] Allergy (Verified 03/06/21 16:49) Other Current Medications Generic Name Dose Route Start Last Admin Trade Name Roxi PRN Reason Stop Dose Admin Acetaminophen 1,000 mg 03/08/21 22:00 03/09/21 14:49 Acetaminophen 500 Mg Tablet PO 1,000 mg TID NEELAM Administration Ascorbic Acid 500 mg 03/08/21 17:00 03/09/21 08:24 Ascorbic Acid 500 Mg Tablet PO 500 mg BIDCM NEELAM Administration Aspirin 81 mg 03/09/21 08:00 03/09/21 08:24 Aspirin 81 Mg Tab.Chew PO 81 mg BREAKFAST NEELAM Administration Atorvastatin Calcium 40 mg 03/08/21 22:00 03/08/21 22:21 Atorvastatin Calcium 40 Mg Tablet PO 40 mg QHS NEELAM Administration Bisacodyl 10 mg 03/08/21 22:16 Bisacodyl 5 Mg Tablet PO DAILY PRN PRN Constipation Docusate Sodium 100 mg 03/08/21 16:04 Docusate Sodium 100 Mg Capsule PO BID PRN PRN constipation Ferrous Sulfate 325 mg 03/08/21 17:00 03/09/21 11:40 Ferrous Sulfate 325 Mg Tablet PO 325 mg 1200,1700 NEELAM Administration Levothyroxine Sodium 100 mcg 03/09/21 06:00 03/09/21 06:26 Levothyroxine 100 Mcg Tablet PO 100 mcg MOTUWETHFRSA NEELAM Administration Multivitamins/Minerals 1 tablet 03/09/21 08:00 03/09/21 08:24 Multivitamins,Ther W-Minerals Tablet PO 1 tablet DAILYCM [facility] Administration Nutritional Formula (Lactose Free) 120 ml 03/08/21 17:00 03/09/21 11:39 Ensure Enlive 120 Ml Liquid PO 120 ml 4X/DAY NEELAM Administration Nystatin 500,000 unit 03/08/21 22:00 03/09/21 11:40 Nystatin 500,000 Unit/5 Ml Udc PO 03/18/21 22:01 500,000 unit 4X/DAY NEELAM Administration Polyethylene Glycol 17 gm 03/09/21 06:00 03/09/21 06:26 Polyethylene Glycol 3350 17 Gm Packet PO 17 gm DAILY NEELAM Administration Senna/Docusate Sodium 1 tablet 03/09/21 06:00 03/09/21 06:26 Senna/Docusate Sodium 1 Tablet PO 1 tablet BID NEELAM Administration Tramadol HCl 50 mg 03/08/21 22:16 Tramadol 50 Mg Tablet PO Q6H PRN PRN Pain Score 6-10 Tuberculin PPD 0.1 ml 03/16/21 10:00 Tuberculin,Purif.Prot.Deriv. 50 Tu/Ml Vial ID 03/16/21 10:01 X1 ONE Problem List (Last Reviewed 03/08/21 @ 22:[address] Maurizio Ramírez MD) Insomnia (Acute) Hyperlipidemia (Acute) Hypertension (Chronic) Vitamin D deficiency (Acute) Hypothyroidism (Acute) Iron deficiency anemia (Acute) Syncope (Acute) Debility (Acute) Closed left hip fracture (Acute) Vital Signs Temp Pulse Resp BP Pulse Ox 98.6 F 77 17 135/46 H 94 03/09/21 14:12 03/09/21 14:12 03/09/21 14:12 03/09/21 14:12 03/09/21 14:12 Oxygen Delivery Method Room Air Weight: 52.617 kg Body Mass Index (BMI) 22.7 Sodium 134 mmol/L (136-145) L 03/09/21 05:32 Potassium 4.2 mmol/L (3.5-5.1) 03/09/21 05:32 Chloride 101 mmol/L (98-107) 03/09/21 05:32 Carbon Dioxide 28.0 mmol/L (21.0-32.0) 03/09/21 05:32 Anion Gap 5 (5-15) 03/09/21 05:32 BUN 15 mg/dL (7-18) 03/09/21 05:32 Creatinine 0.73 mg/dL (0.55-1.02) 03/09/21 05:32 Est GFR (MDRD) Af Amer 97 mL/min (>60) 03/09/21 05:32 Est GFR (MDRD) Non-Af 80 mL/min (>60) 03/09/21 05:32 BUN/Creatinine Ratio 20.5 RATIO (10-20) H 03/09/21 05:32 Glucose 112 mg/dL (74-106) H 03/09/21 05:32 Assessment/Plan: 1. Pain: acetaminophen 1000mg PO TID and tramadol 50mg PO Q6H PRN pain 6-10/10. Please continue to monitor for increased pain and PRN usage. 2. CV prophylaxis: aspirin 81mg PO breakfast. Please continue to monitor for S/S of bleeding and hemoglobin (last 7.4 g/dL). *3. Hyperlipidemia: atorvastatin 40mg PO QHS. Please consider ordering a lipid panel. Last lipid panel from 10/25/19. Thanks. Please continue to monitor for muscle pain. 4. Iron deficiency anemia: ferrous sulfate 325mg PO BID. Please continue to monitor hemoglobin, dark stools and constipation. 5. Hypothyroidism: levothyroxine 100mcg PO daily except Sunday. Please continue to monitor TSH (last 03/07/21) and for S/S of hypo/hyperthyroidism. 6. Thrush: nystatin 500,000units PO 4x/day thru 03/18/21. Please continue to monitor for thrush. Swish and swallow medication. 7. Overall nutrition/vitamin deficiencies: ascorbic acid 500mg PO BIDCM and multivitamin with minerals 1T PO DAILYCM. Please continue to monitor. Psychotropic Medications: None Unnecessary Medications: None Bowel Regimen: Miralax 17gm PO daily, senna/docusate 1T PO BID, docusate 100mg PO BID PRN constipation and bisacodyl 10mg PO daily PRN constipation. Please continue to monitor for constipation and PRN usage. Date of Note:: 03/09/21
--- NOTE | 2021-03-09 15:19 | NURSING ---
patient is unable to take generic synthroid per her PCP. per pharmacist, Drew, we do not carry non-generic synthroid in pharmacy. will consult with .
[2021-03-09] MEDS: Atorvastatin Calcium 40 MG Tablet PO (22:26)
[2021-03-09 22:30] VITALS: PULSE 93; RESP 16; O2SAT 93
[2021-03-10 06:05] VITALS: BP 123/63; PULSE 87; RESP 16; TEMP 36.3; O2SAT 93
[2021-03-10] MEDS: Senna/Docusate Sodium 1 Tablet PO ×2 (06:07→18:21)
[2021-03-10] MEDS: Levothyroxine 100 MCG Tablet PO (06:07)
[2021-03-10] MEDS: Acetaminophen 500 MG Tablet 1000 MG PO ×2 (06:08→21:30)
[2021-03-10] MEDS: Polyethylene Glycol 3350 17 GM PACKET PO (06:08)
[2021-03-10] MEDS: NYSTATIN 500,000 UNIT/5 ML UDC 500000 UNIT PO ×2 (06:14→21:30)
[2021-03-10] MEDS: Multivitamins,Ther W-Minerals Tablet 1 TABLET PO (07:51)
[2021-03-10] MEDS: Ascorbic Acid 500 MG Tablet PO ×2 (07:51→18:20)
[2021-03-10] MEDS: Aspirin 81 MG TAB.CHEW PO (07:51)
[2021-03-10 16:42] VITALS: BP 118/44; PULSE 78; RESP 16; TEMP 37.1; O2SAT 98
[2021-03-10] MEDS: Ferrous Sulfate 325 MG Tablet PO (18:20)
[2021-03-10 18:23] VITALS: BP 121/51; PULSE 85
[2021-03-10 20:45] VITALS: RESP 14; O2SAT 90
[2021-03-10 21:30] VITALS: BP 118/55; PULSE 83; RESP 16; O2SAT 90
[2021-03-10] MEDS: Atorvastatin Calcium 40 MG Tablet PO (21:31)
[2021-03-11 06:07] VITALS: BP 118/61; PULSE 84; RESP 16; TEMP 36.8; O2SAT 94
[2021-03-11] MEDS: Acetaminophen 500 MG Tablet 1000 MG PO ×3 (07:07→20:36)
[2021-03-11] MEDS: Senna/Docusate Sodium 1 Tablet PO ×2 (07:07→17:13)
[2021-03-11] MEDS: Levothyroxine 100 MCG Tablet PO (07:07)
[2021-03-11] MEDS: NYSTATIN 500,000 UNIT/5 ML UDC 500000 UNIT PO ×3 (07:07→20:36)
[2021-03-11] MEDS: Aspirin 81 MG TAB.CHEW PO (08:17)
[2021-03-11] MEDS: Ascorbic Acid 500 MG Tablet PO ×2 (08:17→17:13)
[2021-03-11] MEDS: Multivitamins,Ther W-Minerals Tablet 1 TABLET PO (08:17)
[2021-03-11 09:50] LABS: Hematocrit 29.7 % (37-47); Hemoglobin 9.8 g/dL (12.0-15.0)
[2021-03-11] MEDS: Ferrous Sulfate 325 MG Tablet PO ×2 (13:50→17:13)
--- NOTE | 2021-03-11 15:26 | CHAPLAIN ---
Type of Pastoral Visit ___ Initial Visit _x__ Follow-up Visit ___ On-call Visit ___ General Patient Visit ___ Spiritual Assessment ___ Family Conference ___ Bereavement ___ Rapid Response ___ Code Blue ___ Other (describe below) Pastoral Care Referral From _x__ Patient _x__ Family ___ Nurse ___ Physician ___ Stock Or Delivery Clerk ___ Molder Hand ___ Other (describe below) Sacrament/Intervention _x__ Active listening ___ Anointing ___ Sikh ___ Bereavement ___ Communion ___ Marielena exploration ___ _x__ Life review _x__ Prayer ___ Reconciliation ___ Sacrament of Sick _x__ Supportive presence ___ Wedding ___ Other (describe below) Pastoral Comments patient is a talker and carries the conversation into various topics; pt is not used to being in a hospital and requires some extra attention; pt is focused on watching the Olympics; pt visitor comes into room; prayer given
[2021-03-11 16:00] VITALS: BP 128/56; PULSE 75; RESP 16; TEMP 37.3; O2SAT 96
[2021-03-11 20:30] VITALS: PULSE 86; RESP 12; O2SAT 94
[2021-03-11] MEDS: Atorvastatin Calcium 40 MG Tablet PO (20:36)
--- NOTE | 2021-03-12 00:31 | NURSING ---
Resting in bed with eyes closed, HOB elevated. Pt removed glasses and asked to have tv turned off, head adjusted for comfort, denies other needs.
[2021-03-12 05:00] VITALS: BP 166/71; PULSE 85; RESP 14; TEMP 36.7; O2SAT 95
[2021-03-12] MEDS: NYSTATIN 500,000 UNIT/5 ML UDC 500000 UNIT PO ×4 (06:17→21:20)
[2021-03-12] MEDS: Senna/Docusate Sodium 1 Tablet PO (06:18)
[2021-03-12] MEDS: Acetaminophen 500 MG Tablet 1000 MG PO ×3 (06:18→21:19)
[2021-03-12] MEDS: Levothyroxine 100 MCG Tablet PO (06:18)
[2021-03-12] MEDS: Multivitamins,Ther W-Minerals Tablet 1 TABLET PO (09:32)
[2021-03-12] MEDS: Aspirin 81 MG TAB.CHEW PO (09:32)
[2021-03-12] MEDS: Ascorbic Acid 500 MG Tablet PO ×2 (09:32→17:29)
[2021-03-12 10:00] VITALS: PULSE 75; RESP 18; O2SAT 98
[2021-03-12] MEDS: Ferrous Sulfate 325 MG Tablet PO ×2 (12:03→17:29)
[2021-03-12 14:39] VITALS: BP 135/61; PULSE 83; RESP 16; TEMP 36.8; O2SAT 95
[2021-03-12] MEDS: Atorvastatin Calcium 40 MG Tablet PO (21:19)
[2021-03-13 05:00] VITALS: BP 110/71; PULSE 72; RESP 12; TEMP 37.2; O2SAT 97
[2021-03-13] MEDS: NYSTATIN 500,000 UNIT/5 ML UDC 500000 UNIT PO ×4 (06:49→21:04)
[2021-03-13] MEDS: Acetaminophen 500 MG Tablet 1000 MG PO ×3 (06:50→21:04)
[2021-03-13] MEDS: Multivitamins,Ther W-Minerals Tablet 1 TABLET PO (08:37)
[2021-03-13] MEDS: Ascorbic Acid 500 MG Tablet PO ×2 (08:37→17:35)
[2021-03-13] MEDS: Aspirin 81 MG TAB.CHEW PO (08:37)
[2021-03-13] MEDS: Ferrous Sulfate 325 MG Tablet PO ×2 (11:38→17:35)
[2021-03-13 13:46] VITALS: BP 102/63; PULSE 86; RESP 18; TEMP 36.2; O2SAT 98
[2021-03-13] MEDS: Atorvastatin Calcium 40 MG Tablet PO (21:04)
[2021-03-13 23:30] VITALS: PULSE 79; RESP 12; O2SAT 97
[2021-03-14] MEDS: NYSTATIN 500,000 UNIT/5 ML UDC 500000 UNIT PO ×3 (06:11→16:30)
[2021-03-14] MEDS: Levothyroxine 100 MCG Tablet PO (06:11)
[2021-03-14] MEDS: Acetaminophen 500 MG Tablet 1000 MG PO ×3 (06:12→21:29)
[2021-03-14 06:20] VITALS: BP 144/65; PULSE 72; RESP 14; TEMP 36.9; O2SAT 96
[2021-03-14] MEDS: Senna/Docusate Sodium 1 Tablet PO (06:26)
[2021-03-14] MEDS: Ascorbic Acid 500 MG Tablet PO ×2 (08:28→16:30)
[2021-03-14] MEDS: Multivitamins,Ther W-Minerals Tablet 1 TABLET PO (08:28)
[2021-03-14] MEDS: Aspirin 81 MG TAB.CHEW PO (08:28)
[2021-03-14] MEDS: Ferrous Sulfate 325 MG Tablet PO ×2 (11:06→16:30)
[2021-03-14 13:14] VITALS: BP 109/55; PULSE 87; RESP 18; TEMP 36.2; O2SAT 98
[2021-03-14] MEDS: Atorvastatin Calcium 40 MG Tablet PO (21:30)
[2021-03-15 06:09] VITALS: BP 136/70; PULSE 74; RESP 14; TEMP 36.6; O2SAT 95
[2021-03-15] MEDS: Levothyroxine 100 MCG Tablet PO (06:11)
[2021-03-15] MEDS: Acetaminophen 500 MG Tablet 1000 MG PO ×3 (06:11→21:52)
[2021-03-15] MEDS: Senna/Docusate Sodium 1 Tablet PO ×2 (06:16→17:35)
[2021-03-15] MEDS: Multivitamins,Ther W-Minerals Tablet 1 TABLET PO (08:53)
[2021-03-15] MEDS: Aspirin 81 MG TAB.CHEW PO (08:53)
[2021-03-15] MEDS: Ascorbic Acid 500 MG Tablet PO ×2 (08:53→17:32)
[2021-03-15] MEDS: Ferrous Sulfate 325 MG Tablet PO ×2 (11:43→17:32)
[2021-03-15 13:33] VITALS: BP 122/61; PULSE 78; RESP 16; TEMP 36.4; O2SAT 97
[2021-03-15] MEDS: Atorvastatin Calcium 40 MG Tablet PO (21:52)
[2021-03-15 23:11] VITALS: RESP 14
[2021-03-16 05:00] VITALS: BP 139/62; PULSE 58; RESP 18; O2SAT 96
[2021-03-16 05:36] LABS: Absolute Lymphocyte Count 1.57 X10^3/uL (0.83-4.51); Absolute Neutrophil Count 6.6 X10^3/uL (2.0-7.7); Basophil# 0.05 X10^3/uL; Basophil% 0.5 % (0-1); Eosinophil# 0.34 X10^3/uL; Eosinophils% 3.5 % (0-5); Hematocrit 31.6 % (37-47); Hemoglobin 9.7 g/dL (12.0-15.0); Lymphocyte # 1.57 X10^3/ul (0.83-4.51); Lymphocyte % 16.2 % (19-41); Mean Corp Hgb Conc 30.7 g/dL (32-36); Mean Corpuscular Volume 91.1 fL (81-99); Mean Platelet Vol. 9.1 fl (6.2-12.0); Monocyte# 0.98 X10^3/uL; Monocyte% 10.1 % (0-10); NRBC Flagged by Analyzer 0 % (0-5); Neutrophil # 6.63 X10^3/uL (2.7-7.7); Neutrophil % 68.7 % (47-70); Platelet Count 384 K/mm3 (150-450); RBC Distribution Width CV 16.4 % (11.6-14.6); RBC Distribution Width SD 52.2 fl (35.1-43.9); Red Blood Count 3.47 M/mm3 (4.2-5.4); White Blood Count 9.7 K/mm3 (4.4-11.0)
[2021-03-16 05:53] LABS: Anion Gap 3 (5-15); BUN 16 mg/dL (7-18); BUN/Creat Ratio 32.5 RATIO (10-20); Calcium,Total 8.4 mg/dL (8.5-10.1); Chloride 106 mmol/L (98-107); Creatinine, Serum 0.49 mg/dL (0.55-1.02); EST Glomerular Filtration Rate 127 mL/min (>60); Est Glom Filt Rate - Afr Amer 154 mL/min (>60); Estimated Creatinine Clearance 33.99 ml/min; Glucose 89 mg/dL (74-106); Potassium 4.5 mmol/L (3.5-5.1); Sodium Level 138 mmol/L (136-145)
[2021-03-16] MEDS: Levothyroxine 100 MCG Tablet PO (06:10)
[2021-03-16] MEDS: Acetaminophen 500 MG Tablet 1000 MG PO ×3 (06:10→20:32)
[2021-03-16] MEDS: Polyethylene Glycol 3350 17 GM PACKET PO (06:10)
[2021-03-16] MEDS: Senna/Docusate Sodium 1 Tablet PO ×2 (06:12→17:42)
[2021-03-16] MEDS: Multivitamins,Ther W-Minerals Tablet 1 TABLET PO (09:04)
[2021-03-16] MEDS: Ascorbic Acid 500 MG Tablet PO ×2 (09:04→17:42)
[2021-03-16] MEDS: Aspirin 81 MG TAB.CHEW PO (09:04)
[2021-03-16] MEDS: Tuberculin,Purif.prot.deriv. 50 TU/ML Vial 0.1 ML ID (12:26)
[2021-03-16] MEDS: Ferrous Sulfate 325 MG Tablet PO ×2 (12:27→17:42)
[2021-03-16 13:46] VITALS: BP 131/54; PULSE 67; RESP 14; TEMP 36.6; O2SAT 97
[2021-03-16] MEDS: Atorvastatin Calcium 40 MG Tablet PO (20:32)
[2021-03-16] MEDS: Nystatin Powder 15gm Bottle 1 APPLIC TOPICAL (20:44)
[2021-03-17 06:39] VITALS: BP 139/76; PULSE 71; RESP 16; TEMP 36.4; O2SAT 98
[2021-03-17] MEDS: Nystatin Powder 15gm Bottle 1 APPLIC TOPICAL ×2 (06:39→20:38)
[2021-03-17] MEDS: Acetaminophen 500 MG Tablet 1000 MG PO ×3 (06:40→20:39)
[2021-03-17] MEDS: Levothyroxine 100 MCG Tablet PO (06:40)
--- NOTE | 2021-03-17 08:18 | CASEMGMT ---
Social Work Plan of care meeting held today with pt and son Mk in attendance and son Heladio on speaker phone. Pt is receiving PT/OT and progressing. Pt currently covered under Medicare Benefit which ALBER explained. Pt would like to remain in TCU for duration of time needed for rehabilitation and then discharge to [facility] and plans to stay there a few months until she and her sons are comfortable with her returning home alone. ALBER will follow up for discharge planning and make referral to [place]. No discharge date has been set at this time. Will continue with treatment plan in TCU. SEBAS Avery
[2021-03-17] MEDS: Ascorbic Acid 500 MG Tablet PO ×2 (08:48→18:23)
[2021-03-17] MEDS: Aspirin 81 MG TAB.CHEW PO (08:48)
[2021-03-17] MEDS: Multivitamins,Ther W-Minerals Tablet 1 TABLET PO (08:49)
[2021-03-17 10:00] VITALS: PULSE 76; RESP 16; O2SAT 97
[2021-03-17] MEDS: Ferrous Sulfate 325 MG Tablet PO ×2 (12:31→18:23)
[2021-03-17 13:24] VITALS: BP 120/64; PULSE 75; RESP 16; TEMP 36.3; O2SAT 98
--- NOTE | 2021-03-17 16:17 | CASEMGMT ---
Social Work SW spoke with Di at [facility] about pt request for technician terminal and repeater bed once skilled time is complete here. Di states they currently have no private rooms but do have two open deluxe semi private rooms. Di states that residents that are in their skilled unit get first priority to skilled nursing beds and there is no guarantee a bed will be available when pt would [facility] as they will not hold a bed. If pt were to move to [place] [facility] now, she would have priority to a skilled nursing bed. Referral faxed to Di. Once a determination is made if they can accept pt, ALBER will inform pt and sons of above information about [place] bed situation and allow them to make decision on timing of placement. SEBAS Avery
[2021-03-17] MEDS: Senna/Docusate Sodium 1 Tablet PO (18:23)
[2021-03-17] MEDS: Atorvastatin Calcium 40 MG Tablet PO (20:38)
[2021-03-17] MEDS: NYSTATIN 500,000 UNIT/5 ML UDC 500000 UNIT PO (20:39)
[2021-03-18 05:00] VITALS: BP 163/62; PULSE 81; RESP 16; TEMP 36.4; O2SAT 97
[2021-03-18] MEDS: Acetaminophen 500 MG Tablet 1000 MG PO ×2 (06:39→22:00)
[2021-03-18] MEDS: Senna/Docusate Sodium 1 Tablet PO ×2 (06:39→17:17)
[2021-03-18] MEDS: Nystatin Powder 15gm Bottle 1 APPLIC TOPICAL (06:40)
[2021-03-18] MEDS: NYSTATIN 500,000 UNIT/5 ML UDC 500000 UNIT PO ×4 (06:40→21:59)
[2021-03-18] MEDS: Levothyroxine 100 MCG Tablet PO (06:41)
[2021-03-18] MEDS: Ascorbic Acid 500 MG Tablet PO ×2 (08:35→17:17)
[2021-03-18] MEDS: Aspirin 81 MG TAB.CHEW PO (08:35)
[2021-03-18] MEDS: Multivitamins,Ther W-Minerals Tablet 1 TABLET PO (08:35)
[2021-03-18 10:00] VITALS: PULSE 78; RESP 18; O2SAT 93
[2021-03-18] MEDS: Ferrous Sulfate 325 MG Tablet PO ×2 (12:34→17:17)
--- NOTE | 2021-03-18 14:26 | CASEMGMT ---
Social Work SW spoke with Di at [facility] and they would be able to accept pt. Phone call to pt son Mk and explained that long lines operator beds at [facility] is given priority of pt who are in house receiving therapy. SW explained option of staying in TCU to complete therapy and then hoping [facility] has a bed with no guarantee, or discharging to [facility] Skilled unit now where she would then have priority (but not guarantee) of a long lines operator bed. Mk expresses understanding and will speak with his brother Heladio and pt and let this SW know when they have made a decision. SEBAS Avery
[2021-03-18] MEDS: Atorvastatin Calcium 40 MG Tablet PO (21:59)
[2021-03-19 05:00] VITALS: BP 158/65; PULSE 83; RESP 16; TEMP 36.8; O2SAT 95
[2021-03-19] MEDS: Acetaminophen 500 MG Tablet 1000 MG PO ×2 (05:37→22:30)
[2021-03-19] MEDS: Nystatin Powder 15gm Bottle 1 APPLIC TOPICAL ×2 (05:39→22:32)
[2021-03-19] MEDS: Senna/Docusate Sodium 1 Tablet PO (05:39)
[2021-03-19] MEDS: Levothyroxine 100 MCG Tablet PO (05:39)
[2021-03-19] MEDS: Aspirin 81 MG TAB.CHEW PO (09:17)
[2021-03-19] MEDS: Ascorbic Acid 500 MG Tablet PO ×2 (09:17→19:16)
[2021-03-19] MEDS: Multivitamins,Ther W-Minerals Tablet 1 TABLET PO (09:18)
[2021-03-19] MEDS: Ferrous Sulfate 325 MG Tablet PO ×2 (12:23→19:16)
[2021-03-19 16:00] VITALS: BP 134/65; PULSE 70; RESP 16; TEMP 36.7; O2SAT 98
[2021-03-19 22:26] VITALS: PULSE 82; RESP 16; O2SAT 97
[2021-03-19] MEDS: Atorvastatin Calcium 40 MG Tablet PO (22:30)
[2021-03-20 05:00] VITALS: BP 148/57; PULSE 86; RESP 16; TEMP 36.4; O2SAT 97
[2021-03-20] MEDS: Senna/Docusate Sodium 1 Tablet PO ×2 (06:54→16:17)
[2021-03-20] MEDS: Acetaminophen 500 MG Tablet 1000 MG PO ×2 (06:54→22:45)
[2021-03-20] MEDS: Nystatin Powder 15gm Bottle 1 APPLIC TOPICAL (06:54)
[2021-03-20] MEDS: Levothyroxine 100 MCG Tablet PO (06:54)
[2021-03-20] MEDS: Aspirin 81 MG TAB.CHEW PO (09:12)
[2021-03-20] MEDS: Multivitamins,Ther W-Minerals Tablet 1 TABLET PO (09:12)
[2021-03-20] MEDS: Ascorbic Acid 500 MG Tablet PO ×2 (09:12→16:17)
[2021-03-20] MEDS: Ferrous Sulfate 325 MG Tablet PO ×2 (12:01→16:17)
[2021-03-20 16:00] VITALS: BP 140/64; PULSE 72; RESP 16; TEMP 36.8; O2SAT 96
[2021-03-20] MEDS: Atorvastatin Calcium 40 MG Tablet PO (22:46)
[2021-03-21 05:00] VITALS: BP 137/64; PULSE 75; RESP 14; TEMP 36.6; O2SAT 97
[2021-03-21] MEDS: Nystatin Powder 15gm Bottle 1 APPLIC TOPICAL ×2 (06:03→21:56)
[2021-03-21] MEDS: Senna/Docusate Sodium 1 Tablet PO (06:04)
[2021-03-21] MEDS: Acetaminophen 500 MG Tablet 1000 MG PO ×2 (06:04→21:56)
[2021-03-21] MEDS: Levothyroxine 100 MCG Tablet PO (06:04)
[2021-03-21] MEDS: Aspirin 81 MG TAB.CHEW PO (08:38)
[2021-03-21] MEDS: Ascorbic Acid 500 MG Tablet PO ×2 (08:38→16:33)
[2021-03-21] MEDS: Multivitamins,Ther W-Minerals Tablet 1 TABLET PO (08:38)
--- NOTE | 2021-03-21 08:56 | MDS.RN ---
Information for the mds was obtained from review of the clinical record, interview of resident, staff, and direct observation of resident's care.
[2021-03-21] MEDS: Ferrous Sulfate 325 MG Tablet PO ×2 (11:31→16:34)
[2021-03-21 14:10] VITALS: BP 154/68; PULSE 69; RESP 17; TEMP 36.9; O2SAT 95
--- NOTE | 2021-03-21 14:42 | NURSING ---
Addendum entered by Vanesa Hopkins 03/21/21 16:25: Pt returned from appt. Racheal Pardo to fax orders to TCU. Original Note: Pt off floor for appt with Dr. Loja
[2021-03-21] MEDS: Atorvastatin Calcium 40 MG Tablet PO (21:55)
[2021-03-21 23:40] VITALS: PULSE 88; RESP 12; O2SAT 94
[2021-03-22] MEDS: Nystatin Powder 15gm Bottle 1 APPLIC TOPICAL ×2 (06:25→22:05)
[2021-03-22] MEDS: Levothyroxine 100 MCG Tablet PO (06:26)
[2021-03-22] MEDS: Senna/Docusate Sodium 1 Tablet PO (06:26)
[2021-03-22] MEDS: Acetaminophen 500 MG Tablet 1000 MG PO ×3 (06:27→22:05)
[2021-03-22 06:31] VITALS: BP 143/68; PULSE 80; RESP 12; TEMP 36; O2SAT 95
[2021-03-22] MEDS: Aspirin 81 MG TAB.CHEW PO (08:51)
[2021-03-22] MEDS: Multivitamins,Ther W-Minerals Tablet 1 TABLET PO (08:51)
[2021-03-22] MEDS: Ascorbic Acid 500 MG Tablet PO ×2 (08:52→18:06)
[2021-03-22] MEDS: Ferrous Sulfate 325 MG Tablet PO ×2 (12:26→18:06)
[2021-03-22 14:39] VITALS: BP 132/64; PULSE 69; RESP 16; TEMP 36.8; O2SAT 97
[2021-03-22] MEDS: Atorvastatin Calcium 40 MG Tablet PO (22:06)
[2021-03-23 05:22] VITALS: BP 135/61; PULSE 77; RESP 16; TEMP 36.5; O2SAT 97
[2021-03-23] MEDS: Acetaminophen 500 MG Tablet 1000 MG PO ×3 (05:24→21:30)
[2021-03-23] MEDS: Levothyroxine 100 MCG Tablet PO (05:25)
[2021-03-23] MEDS: Senna/Docusate Sodium 1 Tablet PO ×2 (05:25→17:11)
[2021-03-23] MEDS: Nystatin Powder 15gm Bottle 1 APPLIC TOPICAL ×2 (05:27→21:29)
[2021-03-23 05:35] LABS: Absolute Lymphocyte Count 1.72 X10^3/uL (0.83-4.51); Absolute Neutrophil Count 6.1 X10^3/uL (2.0-7.7); Basophil# 0.06 X10^3/uL; Basophil% 0.7 % (0-1); Eosinophil# 0.19 X10^3/uL; Eosinophils% 2.1 % (0-5); Hematocrit 32.5 % (37-47); Hemoglobin 9.8 g/dL (12.0-15.0); Lymphocyte # 1.72 X10^3/ul (0.83-4.51); Lymphocyte % 18.8 % (19-41); Mean Corp Hgb Conc 30.2 g/dL (32-36); Mean Corpuscular Hgb 28.5 pg (27.0-32.0); Mean Corpuscular Volume 94.5 fL (81-99); Mean Platelet Vol. 9.2 fl (6.2-12.0); Monocyte# 0.98 X10^3/uL; Monocyte% 10.7 % (0-10); NRBC Flagged by Analyzer 0 % (0-5); Neutrophil # 6.14 X10^3/uL (2.7-7.7); Neutrophil % 67.2 % (47-70); Platelet Count 388 K/mm3 (150-450); RBC Distribution Width CV 17.1 % (11.6-14.6); RBC Distribution Width SD 58.8 fl (35.1-43.9); Red Blood Count 3.44 M/mm3 (4.2-5.4); White Blood Count 9.1 K/mm3 (4.4-11.0)
[2021-03-23 05:55] LABS: Anion Gap 3 (5-15); BUN 12 mg/dL (7-18); BUN/Creat Ratio 21.3 RATIO (10-20); Calcium,Total 8.5 mg/dL (8.5-10.1); Chloride 106 mmol/L (98-107); Creatinine, Serum 0.56 mg/dL (0.55-1.02); EST Glomerular Filtration Rate 109 mL/min (>60); Est Glom Filt Rate - Afr Amer 131 mL/min (>60); Estimated Creatinine Clearance 33.99 ml/min; Glucose 89 mg/dL (74-106); Potassium 4.3 mmol/L (3.5-5.1); Sodium Level 139 mmol/L (136-145)
[2021-03-23] MEDS: Ascorbic Acid 500 MG Tablet PO ×2 (09:02→17:11)
[2021-03-23] MEDS: Aspirin 81 MG TAB.CHEW PO (09:02)
[2021-03-23] MEDS: Multivitamins,Ther W-Minerals Tablet 1 TABLET PO (09:02)
[2021-03-23] MEDS: Ferrous Sulfate 325 MG Tablet PO ×2 (11:35→17:11)
--- NOTE | 2021-03-23 14:59 | CHAPLAIN ---
Type of Pastoral Visit ___ Initial Visit _x__ Follow-up Visit ___ On-call Visit ___ General Patient Visit ___ Spiritual Assessment ___ Family Conference ___ Bereavement ___ Rapid Response ___ Code Blue ___ Other (describe below) Pastoral Care Referral From _x__ Patient ___ Family ___ Nurse ___ Physician ___ Aluminum Pool Installer ___ Analytical Laboratory Technician ___ Other (describe below) Sacrament/Intervention _x__ Active listening ___ Anointing ___ Taoist ___ Bereavement ___ Communion ___ Marielena exploration ___ ___ Life review ___ Prayer ___ Reconciliation ___ Sacrament of Sick ___ Supportive presence ___ Wedding ___ Other (describe below) Pastoral Comments patient requested follow up visit; pt is talkative and explains her situation; pt gets a phone call then and visit ends
[2021-03-23 16:00] VITALS: BP 148/69; PULSE 77; RESP 16; TEMP 36.8; O2SAT 97
[2021-03-23 20:00] VITALS: PULSE 93; RESP 16; O2SAT 97
[2021-03-23] MEDS: Atorvastatin Calcium 40 MG Tablet PO (21:30)
[2021-03-24 05:56] VITALS: BP 137/68; PULSE 73; RESP 16; TEMP 36.7; O2SAT 97
[2021-03-24] MEDS: Acetaminophen 500 MG Tablet 1000 MG PO ×3 (05:59→21:18)
[2021-03-24] MEDS: Levothyroxine 100 MCG Tablet PO (05:59)
[2021-03-24] MEDS: Nystatin Powder 15gm Bottle 1 APPLIC TOPICAL ×2 (05:59→21:17)
[2021-03-24] MEDS: Senna/Docusate Sodium 1 Tablet PO (05:59)
[2021-03-24] MEDS: Aspirin 81 MG TAB.CHEW PO (08:46)
[2021-03-24] MEDS: Multivitamins,Ther W-Minerals Tablet 1 TABLET PO (08:46)
[2021-03-24] MEDS: Ascorbic Acid 500 MG Tablet PO ×2 (08:46→17:30)
[2021-03-24] MEDS: Ferrous Sulfate 325 MG Tablet PO ×2 (11:48→17:31)
--- NOTE | 2021-03-24 13:53 | CASEMGMT ---
Social Work SW spoke with pt son Heladio who would like pt to transfer to [facility] on Sunday03/28/21 and continue her skilled therapy there with plans to transition to group home placement when therapy is complete. Phone call to [facility] and they are able to accept pt on Sunday. ALBER met with pt and she is agreeable with discharge plan that her son has requested. Pt's sons plan to pick pt up on Sunday and transport to [facility]. Team updated on d/c plan. PASRR completed. Orders will be faxed to [facility] when they are obtained. Negative Covid Test will be needed on 03/27/21. Plan: D/C 03/28/21 to [facility] Skilled Level of Care SEBAS Avery
[2021-03-24 13:56] VITALS: BP 127/72; PULSE 76; RESP 18; TEMP 36.3; O2SAT 97
--- NOTE | 2021-03-24 19:24 | PCM.DC.SUM ---
Providers Date of Admission: 03/08/21 Primary Care Physician: Dr. Fercho Vegas DO Reason For Visit: L FEMORAL FX Diagnosis Discharge Diagnosis (1) Debility: Status: Acute Code(s): R53.81 - Other malaise (2) Closed left hip fracture: Status: Resolved Code(s): S72.002A - Fracture of unspecified part of neck of left femur, initial encounter for closed fracture (3) Syncope: Status: Acute Code(s): R55 - Syncope and collapse (4) Iron deficiency anemia: Status: Acute Code(s): D50.9 - Iron deficiency anemia, unspecified (5) Hypothyroidism: Status: Acute Code(s): E03.9 - Hypothyroidism, unspecified (6) Vitamin D deficiency: Status: Acute Code(s): E55.9 - Vitamin D deficiency, unspecified (7) Hypertension: Status: Chronic Code(s): I10 - Essential (primary) hypertension (8) Hyperlipidemia: Status: Acute Code(s): E78.5 - Hyperlipidemia, unspecified (9) Insomnia: Status: Acute Code(s): G47.00 - Insomnia, unspecified Medications at Discharge Home Medications Centrum Silver 1 tab PO DAILY 10/16/15 atorvastatin 40 mg PO QHS 10/23/19 aspirin 81 mg PO DAILY 03/06/21 ascorbic acid (vitamin C) 500 mg PO BIDCM 03/08/21 docusate sodium [DOK] 100 mg PO BID PRN PRN #0 cap 03/08/21 ferrous sulfate [FeroSul] 325 mg PO 1200,1700 03/08/21 levothyroxine [Synthroid] 100 mcg PO DAILY 03/11/21 acetaminophen 1,000 mg PO TID #0 tab 03/24/21 bisacodyl 10 mg PO DAILY PRN PRN #0 tab 03/24/21 nystatin [Nyamyc] 1 applic TOPICAL ,22 #0 g 03/24/21 polyethylene glycol 3350 17 g PO DAILY #0 ea 03/24/21 sennosides-docusate sodium [Stool Softener-Stimulant Laxat] 1 tab PO BID #0 tab 03/24/21 Hospital Course Operations - (ORIF, intramedullary nail left hip.) Procedures None Summary of Care Provided Minutes Spent on Discharge: 35 Hospital Course: 85 year old female with below past medical history hospitalized for left hip fracture, underwent open reduction internal fixation, intramedullary nail 03/07/[address] Silverio Loja, complicated by syncope, iron deficiency anemia, admitted to TCU with debility, here for rehabilitation, strengthening, prior to discharge home alone. Discharge to [facility] 03/28/2021, Skilled PT/OT. Physical Exam Const alert and oriented x3 General Appearance: cooperative HEENT normocephalic Eyes PERRL and EOMs intact bilaterally Neck supple, no JVD and no carotid bruits Resp normal respiratory effort, normal air movement and clear to auscultation bilaterally Cardio regular rate and regular rhythm GI normal to inspection, nondistended, normoactive bowel sounds, non-tender and non-distended Extremity normal capillary refill General Extremity: Negative for edema Skin no rashes or lesions noted General Skin Exam: no breakdown Psych affect normal Appearance: appropriate Medical Records Data Medical Nutrition Assessment Dietitian: Nutrition Therapy Diagnosis Start: 03/23/21 16:21 Freq: Status: Active Protocol: Document 03/23/21 16:21 [facility] (Rec: 03/23/21 16:22 [facility] [id number]) Nutrition Malnutrition Evidence of Malnutrition Exists No Clinical Problem Unintended Weight Loss Etiology related to inadequate oral intake x 2 wks prior to admission Signs/Symptoms as evidenced by 3.4% wt loss x 1 month Status Resolved Problem Recommendation Dietitian Recommendations/Changes Will continue liberalized diet of Regular d/t hx poor po intake and to help optimize res appetite Weight / BMI Weight Weight: 52.815 kg Body Mass Index (BMI) 22.7 ABG / Lab / Microbiology Data Result Diagrams: 03/23/21 05:20 03/23/21 05:20 D/C Instructions Discharge Diet: No restrictions Discharge Activity: Return to Normal Activity, May Shower and Use Walker Weight Bearing Status: Weight bearing as tolerated Call your doctor if you observe: Fever of 101 or Higher, Inability to urinate, Inability to have a bowel movement, Shortness of breath, Dizziness, Fainting spells, Swelling in the ankles, Chest pain and Uncontrolled pain Additional Instructions: Discharge to [facility] 03/28/2021, Skilled PT/OT. Please Follow Up With: Silverio Loja MD When: As scheduled. Meaningful Use Info Meaningful Use Diagnoses (Choose all that apply): None applicable Discharge Plan Admission Admit Date/Time: 03/08/21 15:18 Primary Reason for Your Visit: Debility Attending Provider: Maurizio Ramírez Chi Primary Care Provider: Fercho Vegas Instructions Additional Instructions / Restrictions: [facility], Skilled Level of Care Discharge Orders/Prescriptions Prescriptions: New polyethylene glycol 3350 17 gram Powder In Packet 17 g PO DAILY Qty: 0 RF: 0 sennosides-docusate sodium [Stool Softener-Stimulant Laxat] 8.6-50 mg Tablet 1 tab PO BID Qty: 0 RF: 0 acetaminophen 500 mg Tablet 1,000 mg PO TID Qty: 0 RF: 0 bisacodyl 5 mg Tablet,Delayed Release (Dr/Ec) 10 mg PO DAILY PRN PRN (Reason: Constipation) Qty: 0 RF: 0 nystatin [Nyamyc] 100,000 unit/gram Powder 1 applic topical Qty: 0 RF: 0 Continued Centrum Silver 1 EACH tablet 1 tab PO DAILY RF: 0 atorvastatin 40 MG tablet 40 mg PO QHS RF: 0 aspirin 81 mg Tablet 81 mg PO DAILY RF: 0 docusate sodium [DOK] 100 mg Capsule 100 mg PO BID PRN PRN (Reason: constipation) Qty: 0 RF: 0 ascorbic acid (vitamin C) 500 mg tablet 500 mg PO BIDCM RF: 0 ferrous sulfate [FeroSul] 325 mg (65 mg iron) tablet 325 mg PO 1200,1700 RF: 0 levothyroxine [Synthroid] 100 mcg tablet 100 mcg PO DAILY RF: 0 Discontinued amlodipine 10 MG tablet 5 mg PO DAILY RF: 0 Cholecalciferol (VIT D3) 60 mcg PO DAILY RF: 0 magnesium hydroxide 400 mg/5 mL Suspension 30 ml PO DAILY PRN PRN (Reason: Constipation) Qty: 0 RF: 0 acetaminophen 500 mg tablet 1,000 mg PO TID RF: 0 Ensure Enlive 0.08 gram-1.5 kcal/mL liquid 120 ml PO 4X/DAY RF: 0 Referrals / Follow Up: Fercho Vegas DO [Primary Care Provider] - Disposition Disposition (needs filled in before D/C Order can be placed): [facility]
--- NOTE | 2021-03-24 19:30 | TREXTCAR_ITS ---
Diet 03/09/21 11:58 Diet: Regular - General Food consistency:: Regular Liquid Consistency:: Regular/Thin Is pt able to select menu?: Yes Routine Orders/Code Status Code Status: Full Code Wound(s) left hip: Wound Type: Surgical Incision Dressing Change: STRATEGIC ACCOUNT MANAGER Therapies Weight Bearing: Weight bearing as tolerated Extremity Affected:: Bilateral Lower Physical Therapy: Eval and Treat Occupational Therapy: Eval and Treat Problem/Diagnosis (1) Debility: Status: Acute (2) Closed left hip fracture: Status: Resolved (3) Syncope: Status: Acute (4) Iron deficiency anemia: Status: Acute (5) Hypothyroidism: Status: Acute (6) Vitamin D deficiency: Status: Acute (7) Hypertension: Status: Chronic (8) Hyperlipidemia: Status: Acute (9) Insomnia: Status: Acute Allergies/Procedures Done in Hospital Allergies naproxen [From Naprosyn] Allergy (Verified 03/06/21 16:49) Other Procedures: None Type of Care/Length of Stay Estimated LOS: Convalescent Care Less Than 30 days Type of Care Needed: Skilled Rehab Potential: Fair Prognosis: Good Additional Orders/Day of Discharge Day of Discharge: 03/28/21 Dietary and Speech Recommendations Dietitian Recommendations/Changes: Will continue liberalized diet of Regular d/t hx poor po intake and to help optimize res appetite Follow Up Care Please Follow Up With: Silverio Loja MD When: follow up in 4 weeks from 03/21/21 Please Follow Up With: Fercho Vegas DO (PCP) When: 2 weeks Discharge Plan Admission Admit Date/Time: 03/08/21 15:18 Primary Reason for Your Visit: Debility Attending Provider: Maurizio Ramírez Chi Primary Care Provider: Fercho Vegas Instructions Additional Instructions / Restrictions: [facility], Skilled Level of Care Discharge Orders/Prescriptions Prescriptions: New polyethylene glycol 3350 17 gram Powder In Packet 17 g PO DAILY Qty: 0 RF: 0 sennosides-docusate sodium [Stool Softener-Stimulant Laxat] 8.6-50 mg Tablet 1 tab PO BID Qty: 0 RF: 0 acetaminophen 500 mg Tablet 1,000 mg PO TID Qty: 0 RF: 0 bisacodyl 5 mg Tablet,Delayed Release (Dr/Ec) 10 mg PO DAILY PRN PRN (Reason: Constipation) Qty: 0 RF: 0 nystatin [Nyamyc] 100,000 unit/gram Powder 1 applic topical Qty: 0 RF: 0 Continued Centrum Silver 1 EACH tablet 1 tab PO DAILY RF: 0 atorvastatin 40 MG tablet 40 mg PO QHS RF: 0 aspirin 81 mg Tablet 81 mg PO DAILY RF: 0 docusate sodium [DOK] 100 mg Capsule 100 mg PO BID PRN PRN (Reason: constipation) Qty: 0 RF: 0 ascorbic acid (vitamin C) 500 mg tablet 500 mg PO BIDCM RF: 0 ferrous sulfate [FeroSul] 325 mg (65 mg iron) tablet 325 mg PO 1200,1700 RF: 0 levothyroxine [Synthroid] 100 mcg tablet 100 mcg PO DAILY RF: 0 Discontinued amlodipine 10 MG tablet 5 mg PO DAILY RF: 0 Cholecalciferol (VIT D3) 60 mcg PO DAILY RF: 0 magnesium hydroxide 400 mg/5 mL Suspension 30 ml PO DAILY PRN PRN (Reason: Constipation) Qty: 0 RF: 0 acetaminophen 500 mg tablet 1,000 mg PO TID RF: 0 Ensure Enlive 0.08 gram-1.5 kcal/mL liquid 120 ml PO 4X/DAY RF: 0 Referrals / Follow Up: Fercho Vegas DO [Primary Care Provider] - Disposition Disposition (needs filled in before D/C Order can be placed): [facility]
[2021-03-24] MEDS: Atorvastatin Calcium 40 MG Tablet PO (21:18)
[2021-03-25 05:36] VITALS: BP 142/74; PULSE 74; RESP 14; TEMP 36.3; O2SAT 98
[2021-03-25] MEDS: Acetaminophen 500 MG Tablet 1000 MG PO ×3 (05:38→21:19)
[2021-03-25] MEDS: Levothyroxine 100 MCG Tablet PO (05:38)
[2021-03-25] MEDS: Nystatin Powder 15gm Bottle 1 APPLIC TOPICAL ×2 (05:38→21:19)
[2021-03-25] MEDS: Senna/Docusate Sodium 1 Tablet PO (05:38)
--- NOTE | 2021-03-25 07:19 | NURSING ---
[employer] called into pt. pharmacy for home supply per pt. request ([facility]) per automated response med to be available today by 11am. Pt. states son to pick-up.
[2021-03-25] MEDS: Ascorbic Acid 500 MG Tablet PO ×2 (09:26→17:09)
[2021-03-25] MEDS: Multivitamins,Ther W-Minerals Tablet 1 TABLET PO (09:27)
[2021-03-25] MEDS: Aspirin 81 MG TAB.CHEW PO (09:27)
[2021-03-25] MEDS: Ferrous Sulfate 325 MG Tablet PO ×2 (11:33→17:09)
[2021-03-25 14:21] VITALS: BP 117/55; PULSE 79; RESP 18; TEMP 36.2; O2SAT 97
--- NOTE | 2021-03-25 14:25 | CASEMGMT ---
PHQ9 and BIMS interviews completed on this date for MDS assessment. SEBAS Avery
[2021-03-25] MEDS: Atorvastatin Calcium 40 MG Tablet PO (21:18)
[2021-03-25 21:33] VITALS: PULSE 84; RESP 16; O2SAT 98
[2021-03-26 05:00] VITALS: BP 144/75; PULSE 75; RESP 16; TEMP 36.8; O2SAT 97
[2021-03-26] MEDS: Nystatin Powder 15gm Bottle 1 APPLIC TOPICAL ×2 (05:39→20:25)
[2021-03-26] MEDS: Acetaminophen 500 MG Tablet 1000 MG PO ×2 (05:39→20:24)
[2021-03-26] MEDS: Senna/Docusate Sodium 1 Tablet PO (05:40)
[2021-03-26] MEDS: Levothyroxine 100 MCG Tablet PO (05:40)
[2021-03-26] MEDS: Aspirin 81 MG TAB.CHEW PO (08:49)
[2021-03-26] MEDS: Multivitamins,Ther W-Minerals Tablet 1 TABLET PO (08:49)
[2021-03-26] MEDS: Ascorbic Acid 500 MG Tablet PO ×2 (08:49→18:42)
[2021-03-26] MEDS: Ferrous Sulfate 325 MG Tablet PO ×2 (11:58→18:42)
[2021-03-26 14:51] VITALS: BP 139/60; PULSE 78; RESP 15; TEMP 36.9; O2SAT 94
[2021-03-26] MEDS: Atorvastatin Calcium 40 MG Tablet PO (20:25)
[2021-03-27 05:00] VITALS: BP 157/80; PULSE 76; RESP 16; TEMP 36.4; O2SAT 97
[2021-03-27] MEDS: Nystatin Powder 15gm Bottle 1 APPLIC TOPICAL (06:58)
[2021-03-27] MEDS: Senna/Docusate Sodium 1 Tablet PO (06:58)
[2021-03-27] MEDS: Acetaminophen 500 MG Tablet 1000 MG PO ×2 (06:58→20:06)
[2021-03-27] MEDS: Multivitamins,Ther W-Minerals Tablet 1 TABLET PO (08:30)
[2021-03-27] MEDS: Ascorbic Acid 500 MG Tablet PO ×2 (08:30→17:51)
[2021-03-27] MEDS: Aspirin 81 MG TAB.CHEW PO (08:30)
[2021-03-27] MEDS: Ferrous Sulfate 325 MG Tablet PO ×2 (11:24→17:51)
[2021-03-27 14:35] VITALS: BP 129/63; PULSE 73; RESP 14; TEMP 36.3; O2SAT 96
[2021-03-27] MEDS: Atorvastatin Calcium 40 MG Tablet PO (20:05)
[2021-03-27 20:08] VITALS: RESP 16; O2SAT 97
[2021-03-28 05:00] VITALS: BP 148/73; PULSE 71; RESP 16; TEMP 36.4; O2SAT 96
[2021-03-28] MEDS: Senna/Docusate Sodium 1 Tablet PO (06:46)
[2021-03-28] MEDS: Nystatin Powder 15gm Bottle 1 APPLIC TOPICAL (06:46)
[2021-03-28] MEDS: Acetaminophen 500 MG Tablet 1000 MG PO (06:47)
[2021-03-28] MEDS: Levothyroxine 100 MCG Tablet PO (06:47)
[2021-03-28] MEDS: Ascorbic Acid 500 MG Tablet PO (08:56)
[2021-03-28] MEDS: Aspirin 81 MG TAB.CHEW PO (08:56)
[2021-03-28] MEDS: Multivitamins,Ther W-Minerals Tablet 1 TABLET PO (08:56)
[2021-03-28] MEDS: Ferrous Sulfate 325 MG Tablet PO (11:52)
[2021-03-28 11:56] VITALS: BP 110/87; PULSE 74; RESP 16; TEMP 36.6; O2SAT 96
--- NOTE | 2021-03-28 12:58 | NURSING ---
Report called to [facility] spoke with Mary Ann.
[2021-03-28 13:41] VITALS: BP 126/57; PULSE 85; RESP 16; TEMP 36.2; O2SAT 96
== END 2021-03-28 13:50 | disposition skilled nursing facility (03) | DRG 560 ==
PROVIDERS: Admitting Provider Family Medicine Geriatric Medicine; PCP Student in an Organized Health Care Education/Training Program; Visit Provider Family Medicine Geriatric Medicine
DX: S72.002D Fracture of unspecified part of neck of left femur, subsequent encounter for closed fracture with routine healing (principal); B37.0 Candidal stomatitis; W19.XXXD Unspecified fall, subsequent encounter; I10 Essential (primary) hypertension; E03.9 Hypothyroidism, unspecified; D50.9 Iron deficiency anemia, unspecified; E78.5 Hyperlipidemia, unspecified; E55.9 Vitamin D deficiency, unspecified; H91.92 Unspecified hearing loss, left ear; Z79.899 Other long term (current) drug therapy; Z79.82 Long term (current) use of aspirin
CPT/HCPCS: 36415; 36430; 80048; 85014; 85018; 85025; 86850; 86900; 86901; 86920; 86921; 86922; 87635; 97110; 97116; 97162; 97166; 97530; 97535; 97802; J7040; P9016; U0005; A4216; J1940; U0003

== ENCOUNTER → 2021-03-10 08:06 | Outpatient (CLI) | payer MEDICARE, OTHER, SELFPAY ==
[2021-03-08 15:36] VITALS: BMI 22.7
[2021-03-10] VITALS (8 sets, daily range): BP systolic 108–144; BP diastolic 40–60; PULSE 73–86; RESP 16; TEMP 36.8–37.2; O2SAT 94–97; BMI 23.6
[2021-03-10] MEDS: 0.9% NaCl Peripheral Flush Adult/Peds IV ×5 (08:32→14:44)
[2021-03-10] MEDS: Furosemide 20 MG/2 ML VIAL IV (12:00)
== END ==
PROVIDERS: PCP Student in an Organized Health Care Education/Training Program; Referring Provider Family Medicine Geriatric Medicine; Visit Provider Family Medicine Geriatric Medicine
DX: S72.002A Fracture of unspecified part of neck of left femur, initial encounter for closed fracture (principal)
CPT/HCPCS: 36430; 86850; 86900; 86901; 86920; 86921; 86922; J7040; P9016; A4216; J1940

== ENCOUNTER → 2021-06-14 05:00 | Outpatient (REF) | payer MEDICARE, OTHER, SELFPAY ==
[2021-06-14 08:56] LABS: Hematocrit 36.3 % (37-47); Hemoglobin 11.2 g/dL (12.0-15.0); Mean Corp Hgb Conc 30.9 g/dL (32-36); Mean Corpuscular Hgb 28.2 pg (27.0-32.0); Mean Corpuscular Volume 91.4 fL (81-99); Mean Platelet Vol. 11.7 fl (6.2-12.0); Platelet Count 263 K/mm3 (150-450); RBC Distribution Width CV 13.5 % (11.6-14.6); RBC Distribution Width SD 45.5 fl (35.1-43.9); Red Blood Count 3.97 M/mm3 (4.2-5.4); White Blood Count 5.3 K/mm3 (4.4-11.0)
[2021-06-14 09:10] LABS: Anion Gap 9 (5-15); BUN 14 mg/dL (7-18); BUN/Creat Ratio 28.1 RATIO (10-20); Chloride 106 mmol/L (98-107); EST Glomerular Filtration Rate 125 mL/min (>60); Est Glom Filt Rate - Afr Amer 151 mL/min (>60); Glucose 85 mg/dL (74-106); Sodium Level 141 mmol/L (136-145)
== END ==
LOC: OLS.WHLEAS 05:00
PROVIDERS: PCP Student in an Organized Health Care Education/Training Program; Visit Provider Family Medicine
DX: I10 Essential (primary) hypertension (principal); S72.142D Displaced intertrochanteric fracture of left femur, subsequent encounter for closed fracture with routine healing; R55 Syncope and collapse; R54 Age-related physical debility; Z47.89 Encounter for other orthopedic aftercare
CPT/HCPCS: 36415; 80048; 85027

== ENCOUNTER → 2021-07-12 05:00 | Outpatient (REF) | payer MEDICARE, OTHER, SELFPAY ==
[2021-07-12 09:48] LABS: Hemoglobin 12.2 g/dL (12.0-15.0); Mean Corp Hgb Conc 30.5 g/dL (32-36); Mean Corpuscular Hgb 27.5 pg (27.0-32.0); Mean Corpuscular Volume 90.1 fL (81-99); Mean Platelet Vol. 11.2 fl (6.2-12.0); Platelet Count 302 K/mm3 (150-450); RBC Distribution Width CV 13.2 % (11.6-14.6); RBC Distribution Width SD 43.2 fl (35.1-43.9); Red Blood Count 4.44 M/mm3 (4.2-5.4); White Blood Count 6.7 K/mm3 (4.4-11.0)
[2021-07-12 09:59] LABS: Anion Gap 5 (5-15); BUN 10 mg/dL (7-18); BUN/Creat Ratio 16.6 RATIO (10-20); Calcium,Total 9.5 mg/dL (8.5-10.1); Chloride 104 mmol/L (98-107); EST Glomerular Filtration Rate 100 mL/min (>60); Est Glom Filt Rate - Afr Amer 121 mL/min (>60); Glucose 90 mg/dL (74-106); Potassium 4.1 mmol/L (3.5-5.1); Sodium Level 138 mmol/L (136-145)
== END ==
LOC: OLS.WHLEAS 05:00
PROVIDERS: PCP Student in an Organized Health Care Education/Training Program; Visit Provider Family Medicine
DX: I10 Essential (primary) hypertension (principal); S72.142D Displaced intertrochanteric fracture of left femur, subsequent encounter for closed fracture with routine healing; R55 Syncope and collapse; R54 Age-related physical debility; Z47.89 Encounter for other orthopedic aftercare
CPT/HCPCS: 36415; 80048; 85027

== ENCOUNTER → 2021-08-01 05:00 | Outpatient (REF) | payer MEDICARE, OTHER, SELFPAY ==
[2021-08-01 08:54] LABS: Vitamin D,25 Hydroxy 41.1 ng/mL
[2021-08-01 08:55] LABS: PTHIN 51.8 pg/mL (18.4-80.1)
== END ==
LOC: OLS.WHLEAS 05:00
PROVIDERS: PCP Student in an Organized Health Care Education/Training Program; Visit Provider Family Medicine
DX: M81.0 Age-related osteoporosis without current pathological fracture (principal); S72.142D Displaced intertrochanteric fracture of left femur, subsequent encounter for closed fracture with routine healing; R55 Syncope and collapse; R54 Age-related physical debility; Z47.89 Encounter for other orthopedic aftercare
CPT/HCPCS: 36415; 82306; 83970

== ENCOUNTER 2021-08-16 05:00 | Outpatient (REF) | payer MEDICARE, OTHER, SELFPAY ==
[2021-08-16 09:09] LABS: Hematocrit 39.8 % (37-47); Hemoglobin 12.2 g/dL (12.0-15.0); Mean Corp Hgb Conc 30.7 g/dL (32-36); Mean Corpuscular Hgb 27.3 pg (27.0-32.0); Platelet Count 341 K/mm3 (150-450); RBC Distribution Width CV 13.5 % (11.6-14.6); RBC Distribution Width SD 44.2 fl (35.1-43.9); Red Blood Count 4.47 M/mm3 (4.2-5.4); White Blood Count 6.9 K/mm3 (4.4-11.0)
[2021-08-16 09:25] LABS: Anion Gap 5 (5-15); BUN 11 mg/dL (7-18); BUN/Creat Ratio 19.4 RATIO (10-20); Calcium,Total 9.3 mg/dL (8.5-10.1); Chloride 105 mmol/L (98-107); Creatinine, Serum 0.57 mg/dL (0.55-1.02); EST Glomerular Filtration Rate 108 mL/min (>60); Est Glom Filt Rate - Afr Amer 130 mL/min (>60); Glucose 94 mg/dL (74-106); Potassium 4.1 mmol/L (3.5-5.1); Sodium Level 140 mmol/L (136-145)
== END 2021-08-16 23:59 | disposition home or self-care (01) ==
LOC: OLS.WHLEAS 05:00
PROVIDERS: PCP Student in an Organized Health Care Education/Training Program; Visit Provider Family Medicine
DX: I10 Essential (primary) hypertension (principal); S72.142D Displaced intertrochanteric fracture of left femur, subsequent encounter for closed fracture with routine healing; R55 Syncope and collapse; R54 Age-related physical debility; Z47.89 Encounter for other orthopedic aftercare
CPT/HCPCS: 36415; 80048; 85027

== ENCOUNTER → 2021-09-13 | Outpatient (REF) | payer MEDICARE, OTHER, SELFPAY ==
[2021-09-13 08:24] LABS: Hematocrit 33.8 % (37-47); Hemoglobin 10.2 g/dL (12.0-15.0); Mean Corp Hgb Conc 30.2 g/dL (32-36); Mean Corpuscular Hgb 26.6 pg (27.0-32.0); Mean Corpuscular Volume 88.3 fL (81-99); Mean Platelet Vol. 10.9 fl (6.2-12.0); Platelet Count 297 K/mm3 (150-450); RBC Distribution Width CV 13.6 % (11.6-14.6); RBC Distribution Width SD 44.5 fl (35.1-43.9); Red Blood Count 3.83 M/mm3 (4.2-5.4); White Blood Count 5.9 K/mm3 (4.4-11.0)
[2021-09-13 08:49] LABS: Anion Gap 5 (5-15); BUN 20 mg/dL (7-18); BUN/Creat Ratio 34.1 RATIO (10-20); Calcium,Total 8.8 mg/dL (8.5-10.1); Chloride 106 mmol/L (98-107); Cholesterol 104 mg/dL (200); Creatinine, Serum 0.59 mg/dL (0.55-1.02); EST Glomerular Filtration Rate 103 mL/min (>60); Est Glom Filt Rate - Afr Amer 125 mL/min (>60); Glucose 84 mg/dL (74-106); High Density Lipoprotein 53 mg/dL; Potassium 3.9 mmol/L (3.5-5.1); Sodium Level 138 mmol/L (136-145); Triglycerides 70 mg/dL; Very Low Density Lipoprotein 14 mg/dL (5-40)
== END | disposition home or self-care (01) ==
LOC: OLS.WHLEAS 05:00
PROVIDERS: PCP Student in an Organized Health Care Education/Training Program; Visit Provider Family Medicine
DX: S72.142D Displaced intertrochanteric fracture of left femur, subsequent encounter for closed fracture with routine healing (principal); R55 Syncope and collapse; R54 Age-related physical debility; I10 Essential (primary) hypertension; E78.5 Hyperlipidemia, unspecified
CPT/HCPCS: 36415; 80048; 80061; 85027

== ENCOUNTER → 2021-10-11 | Outpatient (REF) | payer MEDICARE, OTHER, SELFPAY ==
[2021-10-11 09:07] LABS: Hematocrit 32.7 % (37-47); Hemoglobin 10.1 g/dL (12.0-15.0); Mean Corp Hgb Conc 30.9 g/dL (32-36); Mean Corpuscular Hgb 27.1 pg (27.0-32.0); Mean Corpuscular Volume 87.7 fL (81-99); Mean Platelet Vol. 11.5 fl (6.2-12.0); Platelet Count 244 K/mm3 (150-450); RBC Distribution Width CV 14.6 % (11.6-14.6); RBC Distribution Width SD 46.8 fl (35.1-43.9); Red Blood Count 3.73 M/mm3 (4.2-5.4)
[2021-10-11 09:15] LABS: Anion Gap 8 (5-15); BUN 15 mg/dL (7-18); BUN/Creat Ratio 28.5 RATIO (10-20); Calcium,Total 8.9 mg/dL (8.5-10.1); Chloride 107 mmol/L (98-107); Creatinine, Serum 0.53 mg/dL (0.55-1.02); EST Glomerular Filtration Rate 117 mL/min (>60); Est Glom Filt Rate - Afr Amer 142 mL/min (>60); Glucose 72 mg/dL (74-106); Potassium 4.2 mmol/L (3.5-5.1); Sodium Level 140 mmol/L (136-145)
== END | disposition home or self-care (01) ==
LOC: OLS.WHLEAS 05:00
PROVIDERS: PCP Student in an Organized Health Care Education/Training Program; Referring Provider Family Medicine; Visit Provider Family Medicine
DX: I10 Essential (primary) hypertension (principal); S72.142D Displaced intertrochanteric fracture of left femur, subsequent encounter for closed fracture with routine healing; R55 Syncope and collapse; R54 Age-related physical debility
CPT/HCPCS: 36415; 80048; 85027

== ENCOUNTER → 2021-11-08 | Outpatient (REF) | payer MEDICARE, OTHER, SELFPAY ==
[2021-11-08 08:53] LABS: Hematocrit 35.4 % (37-47); Mean Corp Hgb Conc 31.1 g/dL (32-36); Mean Corpuscular Hgb 27.4 pg (27.0-32.0); Mean Corpuscular Volume 88.3 fL (81-99); Mean Platelet Vol. 10.8 fl (6.2-12.0); Platelet Count 244 K/mm3 (150-450); RBC Distribution Width SD 45.1 fl (35.1-43.9); Red Blood Count 4.01 M/mm3 (4.2-5.4); White Blood Count 4.4 K/mm3 (4.4-11.0)
[2021-11-08 09:02] LABS: Anion Gap 2 (5-15); BUN 12 mg/dL (7-18); BUN/Creat Ratio 20.4 RATIO (10-20); Calcium,Total 9.1 mg/dL (8.5-10.1); Chloride 110 mmol/L (98-107); Creatinine, Serum 0.59 mg/dL (0.55-1.02); EST Glomerular Filtration Rate 103 mL/min (>60); Est Glom Filt Rate - Afr Amer 125 mL/min (>60); Glucose 89 mg/dL (74-106); Potassium 4.1 mmol/L (3.5-5.1); Sodium Level 140 mmol/L (136-145)
== END | disposition home or self-care (01) ==
LOC: OLS.WHLTSB 05:00
PROVIDERS: PCP Student in an Organized Health Care Education/Training Program; Visit Provider Family Medicine
DX: I10 Essential (primary) hypertension (principal); F01.51 Vascular dementia, unspecified severity, with behavioral disturbance; E78.5 Hyperlipidemia, unspecified; B37.89 Other sites of candidiasis; I69.00 Unspecified sequelae of nontraumatic subarachnoid hemorrhage; G31.84 Mild cognitive impairment of uncertain or unknown etiology
CPT/HCPCS: 36415; 80048; 85027

== ENCOUNTER → 2021-12-13 | Outpatient (REF) | payer MEDICARE, OTHER, SELFPAY ==
[2021-12-13 08:05] LABS: Hematocrit 35.6 % (37-47); Mean Corp Hgb Conc 30.9 g/dL (32-36); Mean Corpuscular Hgb 27.4 pg (27.0-32.0); Mean Corpuscular Volume 88.8 fL (81-99); Mean Platelet Vol. 11.5 fl (6.2-12.0); Platelet Count 235 K/mm3 (150-450); RBC Distribution Width CV 13.4 % (11.6-14.6); RBC Distribution Width SD 43.9 fl (35.1-43.9); Red Blood Count 4.01 M/mm3 (4.2-5.4); White Blood Count 5.3 K/mm3 (4.4-11.0)
[2021-12-13 08:19] LABS: Anion Gap 5 (5-15); BUN 13 mg/dL (7-18); Calcium,Total 9.1 mg/dL (8.5-10.1); Chloride 109 mmol/L (98-107); Creatinine, Serum 0.59 mg/dL (0.55-1.02); EST Glomerular Filtration Rate 103 mL/min (>60); Est Glom Filt Rate - Afr Amer 124 mL/min (>60); Glucose 85 mg/dL (74-106); Sodium Level 141 mmol/L (136-145)
== END | disposition home or self-care (01) ==
LOC: OLS.WHLTSB 05:00
PROVIDERS: PCP Student in an Organized Health Care Education/Training Program; Visit Provider Family Medicine
DX: E78.5 Hyperlipidemia, unspecified (principal); B37.89 Other sites of candidiasis; I69.00 Unspecified sequelae of nontraumatic subarachnoid hemorrhage; G31.84 Mild cognitive impairment of uncertain or unknown etiology
CPT/HCPCS: 36415; 80048; 85027

== ENCOUNTER → 2022-01-10 | Outpatient (REF) | payer MEDICARE, OTHER, SELFPAY ==
[2022-01-10 07:01] LABS: Hematocrit 34.9 % (37-47); Mean Corp Hgb Conc 31.5 g/dL (32-36); Mean Corpuscular Hgb 27.4 pg (27.0-32.0); Mean Corpuscular Volume 86.8 fL (81-99); Mean Platelet Vol. 11.8 fl (6.2-12.0); Platelet Count 231 K/mm3 (150-450); RBC Distribution Width CV 13.4 % (11.6-14.6); RBC Distribution Width SD 42.9 fl (35.1-43.9); Red Blood Count 4.02 M/mm3 (4.2-5.4); White Blood Count 5.4 K/mm3 (4.4-11.0)
[2022-01-10 07:22] LABS: Anion Gap 6 (5-15); BUN 14 mg/dL (7-18); BUN/Creat Ratio 27.3 RATIO (10-20); Calcium,Total 9.1 mg/dL (8.5-10.1); Chloride 108 mmol/L (98-107); Creatinine, Serum 0.51 mg/dL (0.55-1.02); EST Glomerular Filtration Rate 121 mL/min (>60); Est Glom Filt Rate - Afr Amer 146 mL/min (>60); Glucose 86 mg/dL (74-106); Potassium 3.8 mmol/L (3.5-5.1); Sodium Level 140 mmol/L (136-145); T4 Free Direct 1.69 ng/dL (0.76-1.46); T4 Total, Thyroxin 12.9 ug/dL (4.8-13.9); Thyroid Stim Hormone (TSH) 0.03 uIU/mL (0.358-3.74)
== END | disposition home or self-care (01) ==
LOC: OLS.WHLTSB 05:00
PROVIDERS: PCP Student in an Organized Health Care Education/Training Program; Referring Provider Family Medicine; Visit Provider Family Medicine
DX: I10 Essential (primary) hypertension (principal); E78.5 Hyperlipidemia, unspecified; B37.89 Other sites of candidiasis; I69.00 Unspecified sequelae of nontraumatic subarachnoid hemorrhage; G31.84 Mild cognitive impairment of uncertain or unknown etiology
CPT/HCPCS: 36415; 80048; 84436; 84439; 84443; 85027

== ENCOUNTER → 2022-02-14 | Outpatient (REF) | payer MEDICARE, OTHER, SELFPAY ==
[2022-02-14 09:04] LABS: Hematocrit 36.4 % (37-47); Hemoglobin 11.4 g/dL (12.0-15.0); Mean Corp Hgb Conc 31.3 g/dL (32-36); Mean Corpuscular Hgb 27.3 pg (27.0-32.0); Mean Corpuscular Volume 87.1 fL (81-99); Mean Platelet Vol. 11.3 fl (6.2-12.0); Platelet Count 240 K/mm3 (150-450); RBC Distribution Width CV 14.4 % (11.6-14.6); RBC Distribution Width SD 46.2 fl (35.1-43.9); Red Blood Count 4.18 M/mm3 (4.2-5.4); White Blood Count 5.3 K/mm3 (4.4-11.0)
[2022-02-14 09:13] LABS: Anion Gap 6 (5-15); BUN 13 mg/dL (7-18); Chloride 108 mmol/L (98-107); Creatinine, Serum 0.52 mg/dL (0.55-1.02); EST Glomerular Filtration Rate 119 mL/min (>60); Est Glom Filt Rate - Afr Amer 143 mL/min (>60); Glucose 86 mg/dL (74-106); Potassium 4.1 mmol/L (3.5-5.1); Sodium Level 141 mmol/L (136-145)
== END | disposition home or self-care (01) ==
LOC: OLS.WHLTSB 05:00
PROVIDERS: PCP Student in an Organized Health Care Education/Training Program; Referring Provider Family Medicine; Visit Provider Family Medicine
DX: I10 Essential (primary) hypertension (principal); F01.51 Vascular dementia, unspecified severity, with behavioral disturbance; E78.5 Hyperlipidemia, unspecified; I69.00 Unspecified sequelae of nontraumatic subarachnoid hemorrhage; B37.89 Other sites of candidiasis
CPT/HCPCS: 36415; 80048; 85027

== ENCOUNTER → 2022-03-08 | Outpatient (REF) | payer MEDICARE, OTHER, SELFPAY ==
[2022-03-08 09:58] LABS: Thyroid Stim Hormone (TSH) 0.53 uIU/mL (0.358-3.74)
== END | disposition home or self-care (01) ==
LOC: OLS.WHLTSB 06:05
PROVIDERS: PCP Student in an Organized Health Care Education/Training Program; Visit Provider Family Medicine
DX: E78.5 Hyperlipidemia, unspecified (principal); F01.51 Vascular dementia, unspecified severity, with behavioral disturbance; E03.9 Hypothyroidism, unspecified; B37.89 Other sites of candidiasis; I69.00 Unspecified sequelae of nontraumatic subarachnoid hemorrhage; R60.9 Edema, unspecified; D50.9 Iron deficiency anemia, unspecified
CPT/HCPCS: 36415; 84443

== ENCOUNTER → 2022-03-14 | Outpatient (REF) | payer MEDICARE, OTHER, SELFPAY ==
[2022-03-14 11:05] LABS: Hematocrit 35.8 % (37-47); Mean Corp Hgb Conc 30.7 g/dL (32-36); Mean Corpuscular Hgb 27.4 pg (27.0-32.0); Mean Corpuscular Volume 89.3 fL (81-99); Mean Platelet Vol. 11.6 fl (6.2-12.0); Platelet Count 235 K/mm3 (150-450); RBC Distribution Width CV 14.5 % (11.6-14.6); RBC Distribution Width SD 46.7 fl (35.1-43.9); Red Blood Count 4.01 M/mm3 (4.2-5.4); White Blood Count 5.1 K/mm3 (4.4-11.0)
[2022-03-14 11:33] LABS: Anion Gap 6 (5-15); BUN 19 mg/dL (7-18); Calcium,Total 9.4 mg/dL (8.5-10.1); Chloride 108 mmol/L (98-107); Creatinine, Serum 0.61 mg/dL (0.55-1.02); EST Glomerular Filtration Rate 98 mL/min (>60); Est Glom Filt Rate - Afr Amer 119 mL/min (>60); Glucose 82 mg/dL (74-106); Sodium Level 140 mmol/L (136-145)
== END | disposition home or self-care (01) ==
LOC: OLS.WHLTSB 04:00
PROVIDERS: PCP Student in an Organized Health Care Education/Training Program; Visit Provider Family Medicine
DX: I10 Essential (primary) hypertension (principal); F01.51 Vascular dementia, unspecified severity, with behavioral disturbance; E78.5 Hyperlipidemia, unspecified; I69.00 Unspecified sequelae of nontraumatic subarachnoid hemorrhage; B37.89 Other sites of candidiasis
CPT/HCPCS: 36415; 80048; 85027

== ENCOUNTER → 2022-04-11 | Outpatient (REF) | payer MEDICARE, OTHER, SELFPAY ==
[2022-04-11 09:52] LABS: Hematocrit 35.9 % (37-47); Hemoglobin 11.3 g/dL (12.0-15.0); Mean Corp Hgb Conc 31.5 g/dL (32-36); Mean Corpuscular Volume 88.9 fL (81-99); Mean Platelet Vol. 11.6 fl (6.2-12.0); Platelet Count 237 K/mm3 (150-450); RBC Distribution Width CV 14.5 % (11.6-14.6); RBC Distribution Width SD 47.4 fl (35.1-43.9); Red Blood Count 4.04 M/mm3 (4.2-5.4); White Blood Count 5.3 K/mm3 (4.4-11.0)
[2022-04-11 10:04] LABS: Anion Gap 3 (5-15); BUN 14 mg/dL (7-18); BUN/Creat Ratio 24.2 RATIO (10-20); Calcium,Total 9.2 mg/dL (8.5-10.1); Chloride 109 mmol/L (98-107); Creatinine, Serum 0.58 mg/dL (0.55-1.02); EST Glomerular Filtration Rate 105 mL/min (>60); Est Glom Filt Rate - Afr Amer 127 mL/min (>60); Glucose 82 mg/dL (74-106); Potassium 4.2 mmol/L (3.5-5.1); Sodium Level 141 mmol/L (136-145)
== END ==
LOC: OLS.WHLTSB 05:00
PROVIDERS: PCP Student in an Organized Health Care Education/Training Program; Visit Provider Family Medicine
DX: I10 Essential (primary) hypertension (principal); E78.5 Hyperlipidemia, unspecified; B37.89 Other sites of candidiasis; I69.00 Unspecified sequelae of nontraumatic subarachnoid hemorrhage; G31.84 Mild cognitive impairment of uncertain or unknown etiology; F01.51 Vascular dementia, unspecified severity, with behavioral disturbance
CPT/HCPCS: 36415; 80048; 85027

== ENCOUNTER → 2022-04-25 | Outpatient (REF) | payer MEDICARE, OTHER, SELFPAY | LOC: OLS.WHLTSB 14:00 | PROVIDERS: PCP Student in an Organized Health Care Education/Training Program; Visit Provider Family Medicine | DX: N39.0 Urinary tract infection, site not specified (principal); E78.5 Hyperlipidemia, unspecified; L72.3 Sebaceous cyst; M62.521 Muscle wasting and atrophy, not elsewhere classified, right upper arm; M62.522 Muscle wasting and atrophy, not elsewhere classified, left upper arm | CPT/HCPCS: 87086; 87088; 87186 ==

== ENCOUNTER → 2022-05-16 | Outpatient (REF) | payer MEDICARE, OTHER, SELFPAY ==
[2022-05-16 10:00] LABS: Hematocrit 37.4 % (37-47); Hemoglobin 11.8 g/dL (12.0-15.0); Mean Corp Hgb Conc 31.6 g/dL (32-36); Mean Corpuscular Hgb 28.4 pg (27.0-32.0); Mean Corpuscular Volume 90.1 fL (81-99); Mean Platelet Vol. 11.8 fl (6.2-12.0); Platelet Count 257 K/mm3 (150-450); RBC Distribution Width CV 14.2 % (11.6-14.6); Red Blood Count 4.15 M/mm3 (4.2-5.4); White Blood Count 5.8 K/mm3 (4.4-11.0)
[2022-05-16 10:12] LABS: Anion Gap 8 (5-15); BUN 16 mg/dL (7-18); BUN/Creat Ratio 28.1 RATIO (10-20); Calcium,Total 9.3 mg/dL (8.5-10.1); Chloride 105 mmol/L (98-107); Creatinine, Serum 0.57 mg/dL (0.55-1.02); EST Glomerular Filtration Rate 107 mL/min (>60); Est Glom Filt Rate - Afr Amer 130 mL/min (>60); Glucose 90 mg/dL (74-106); Sodium Level 140 mmol/L (136-145)
== END ==
LOC: OLS.WHLTSB 05:00
PROVIDERS: PCP Student in an Organized Health Care Education/Training Program; Visit Provider Family Medicine
DX: E78.5 Hyperlipidemia, unspecified (principal); B37.89 Other sites of candidiasis; I69.00 Unspecified sequelae of nontraumatic subarachnoid hemorrhage; G31.84 Mild cognitive impairment of uncertain or unknown etiology; I10 Essential (primary) hypertension
CPT/HCPCS: 36415; 80048; 85027

== ENCOUNTER → 2022-06-13 | Outpatient (REF) | payer MEDICARE, OTHER, SELFPAY ==
[2022-06-13 08:27] LABS: Hematocrit 36.4 % (37-47); Hemoglobin 11.1 g/dL (12.0-15.0); Mean Corp Hgb Conc 30.5 g/dL (32-36); Mean Corpuscular Hgb 27.3 pg (27.0-32.0); Mean Corpuscular Volume 89.4 fL (81-99); Mean Platelet Vol. 11.9 fl (6.2-12.0); Platelet Count 233 K/mm3 (150-450); RBC Distribution Width CV 13.8 % (11.6-14.6); RBC Distribution Width SD 45.2 fl (35.1-43.9); Red Blood Count 4.07 M/mm3 (4.2-5.4); White Blood Count 5.6 K/mm3 (4.4-11.0)
[2022-06-13 09:13] LABS: Anion Gap 4 (5-15); BUN 19 mg/dL (7-18); BUN/Creat Ratio 36.3 RATIO (10-20); Calcium,Total 9.2 mg/dL (8.5-10.1); Chloride 109 mmol/L (98-107); Creatinine, Serum 0.52 mg/dL (0.55-1.02); EST Glomerular Filtration Rate 118 mL/min (>60); Est Glom Filt Rate - Afr Amer 143 mL/min (>60); Glucose 83 mg/dL (74-106); Potassium 3.9 mmol/L (3.5-5.1); Sodium Level 141 mmol/L (136-145)
== END ==
LOC: OLS.WHLTSB 05:00
PROVIDERS: PCP Student in an Organized Health Care Education/Training Program; Visit Provider Family Medicine
DX: E78.5 Hyperlipidemia, unspecified (principal); I69.00 Unspecified sequelae of nontraumatic subarachnoid hemorrhage; F01.518 Vascular dementia, unspecified severity, with other behavioral disturbance; I10 Essential (primary) hypertension; B37.89 Other sites of candidiasis
CPT/HCPCS: 36415; 80048; 85027

== ENCOUNTER → 2022-07-11 | Outpatient (REF) | payer MEDICARE, OTHER, SELFPAY ==
[2022-07-11 09:05] LABS: Anion Gap 7 (5-15); BUN 17 mg/dL (7-18); BUN/Creat Ratio 31.6 RATIO (10-20); Calcium,Total 8.8 mg/dL (8.5-10.1); Chloride 105 mmol/L (98-107); Creatinine, Serum 0.54 mg/dL (0.55-1.02); EST Glomerular Filtration Rate 114 mL/min (>60); Est Glom Filt Rate - Afr Amer 138 mL/min (>60); Glucose 82 mg/dL (74-106); Potassium 4.2 mmol/L (3.5-5.1); Sodium Level 140 mmol/L (136-145)
[2022-07-11 09:13] LABS: Hematocrit 36.8 % (37-47); Hemoglobin 11.2 g/dL (12.0-15.0); Mean Corp Hgb Conc 30.4 g/dL (32-36); Mean Corpuscular Hgb 27.3 pg (27.0-32.0); Mean Corpuscular Volume 89.8 fL (81-99); Mean Platelet Vol. 12.1 fl (6.2-12.0); Platelet Count 238 K/mm3 (150-450); RBC Distribution Width SD 46.3 fl (35.1-43.9); White Blood Count 5.3 K/mm3 (4.4-11.0)
== END ==
LOC: OLS.WHLTSB 05:00
PROVIDERS: PCP Student in an Organized Health Care Education/Training Program; Visit Provider Family Medicine
DX: I10 Essential (primary) hypertension (principal); E78.5 Hyperlipidemia, unspecified; G31.84 Mild cognitive impairment of uncertain or unknown etiology; B37.89 Other sites of candidiasis
CPT/HCPCS: 36415; 80048; 85027

== ENCOUNTER → 2022-08-15 | Outpatient (REF) | payer MEDICARE, OTHER, SELFPAY ==
[2022-08-15 10:37] LABS: Hematocrit 37.1 % (37-47); Hemoglobin 11.6 g/dL (12.0-15.0); Mean Corp Hgb Conc 31.3 g/dL (32-36); Mean Corpuscular Hgb 28.2 pg (27.0-32.0); Mean Corpuscular Volume 90.3 fL (81-99); Platelet Count 218 K/mm3 (150-450); RBC Distribution Width SD 46.5 fl (35.1-43.9); Red Blood Count 4.11 M/mm3 (4.2-5.4); White Blood Count 5.4 K/mm3 (4.4-11.0)
[2022-08-15 11:08] LABS: Anion Gap 8 (5-15); BUN 16 mg/dL (7-18); BUN/Creat Ratio 33.8 RATIO (10-20); Calcium,Total 9.2 mg/dL (8.5-10.1); Chloride 106 mmol/L (98-107); Creatinine, Serum 0.47 mg/dL (0.55-1.02); EST Glomerular Filtration Rate 132 mL/min (>60); Est Glom Filt Rate - Afr Amer 160 mL/min (>60); Glucose 75 mg/dL (74-106); Potassium 3.7 mmol/L (3.5-5.1); Sodium Level 138 mmol/L (136-145)
== END ==
LOC: OLS.WHLTSB 04:00
PROVIDERS: PCP Student in an Organized Health Care Education/Training Program; Visit Provider Internal Medicine
DX: I10 Essential (primary) hypertension (principal); E78.5 Hyperlipidemia, unspecified
CPT/HCPCS: 36415; 80048; 85027

== ENCOUNTER → 2022-09-12 | Outpatient (REF) | payer MEDICARE, OTHER, SELFPAY ==
[2022-09-12 10:21] LABS: Hemoglobin 10.9 g/dL (12.0-15.0); Mean Corp Hgb Conc 31.1 g/dL (32-36); Mean Platelet Vol. 11.7 fl (6.2-12.0); Platelet Count 224 K/mm3 (150-450); RBC Distribution Width SD 46.3 fl (35.1-43.9); Red Blood Count 3.89 M/mm3 (4.2-5.4); White Blood Count 5.4 K/mm3 (4.4-11.0)
[2022-09-12 10:50] LABS: Anion Gap 7 (5-15); BUN 14 mg/dL (7-18); BUN/Creat Ratio 26.4 RATIO (10-20); Calcium,Total 8.9 mg/dL (8.5-10.1); Chloride 106 mmol/L (98-107); Cholesterol 112 mg/dL (200); Creatinine, Serum 0.53 mg/dL (0.55-1.02); EST Glomerular Filtration Rate 116 mL/min (>60); Est Glom Filt Rate - Afr Amer 140 mL/min (>60); Glucose 85 mg/dL (74-106); High Density Lipoprotein 66 mg/dL; Potassium 3.9 mmol/L (3.5-5.1); Sodium Level 139 mmol/L (136-145); Triglycerides 56 mg/dL; Very Low Density Lipoprotein 11 mg/dL (5-40)
== END ==
LOC: OLS.WHLTSB 05:20
PROVIDERS: PCP Student in an Organized Health Care Education/Training Program; Visit Provider Family Medicine
DX: I10 Essential (primary) hypertension (principal); E78.5 Hyperlipidemia, unspecified; B37.89 Other sites of candidiasis; I69.00 Unspecified sequelae of nontraumatic subarachnoid hemorrhage; G31.84 Mild cognitive impairment of uncertain or unknown etiology; F01.518 Vascular dementia, unspecified severity, with other behavioral disturbance
CPT/HCPCS: 36415; 80048; 80061; 85027

== ENCOUNTER → 2022-10-17 05:00 | Outpatient (REF) | payer MEDICARE, OTHER, SELFPAY ==
[2022-10-17 08:44] LABS: Hematocrit 38.1 % (37-47); Hemoglobin 11.7 g/dL (12.0-15.0); Mean Corp Hgb Conc 30.7 g/dL (32-36); Mean Corpuscular Hgb 27.9 pg (27.0-32.0); Mean Corpuscular Volume 90.9 fL (81-99); Mean Platelet Vol. 11.9 fl (6.2-12.0); Platelet Count 247 K/mm3 (150-450); RBC Distribution Width CV 13.9 % (11.6-14.6); RBC Distribution Width SD 46.3 fl (35.1-43.9); Red Blood Count 4.19 M/mm3 (4.2-5.4); White Blood Count 5.3 K/mm3 (4.4-11.0)
[2022-10-17 08:58] LABS: Anion Gap 7 (5-15); BUN 16 mg/dL (7-18); BUN/Creat Ratio 25.3 RATIO (10-20); Calcium,Total 9.5 mg/dL (8.5-10.1); Chloride 105 mmol/L (98-107); Creatinine, Serum 0.63 mg/dL (0.55-1.02); EST Glomerular Filtration Rate 95 mL/min (>60); Est Glom Filt Rate - Afr Amer 114 mL/min (>60); Glucose 72 mg/dL (74-106); Potassium 4.1 mmol/L (3.5-5.1); Sodium Level 139 mmol/L (136-145)
== END ==
LOC: OLS.WHLTSB 05:00
PROVIDERS: PCP Student in an Organized Health Care Education/Training Program; Visit Provider Internal Medicine
DX: I10 Essential (primary) hypertension (principal); E78.5 Hyperlipidemia, unspecified
CPT/HCPCS: 36415; 80048; 85027

== ENCOUNTER → 2022-11-14 | Outpatient (REF) | payer MEDICARE, OTHER, SELFPAY ==
[2022-11-14 08:57] LABS: Hematocrit 36.8 % (37-47); Hemoglobin 11.2 g/dL (12.0-15.0); Mean Corp Hgb Conc 30.4 g/dL (32-36); Mean Corpuscular Hgb 27.7 pg (27.0-32.0); Mean Corpuscular Volume 90.9 fL (81-99); Mean Platelet Vol. 11.8 fl (6.2-12.0); Platelet Count 230 K/mm3 (150-450); RBC Distribution Width CV 13.9 % (11.6-14.6); RBC Distribution Width SD 46.6 fl (35.1-43.9); Red Blood Count 4.05 M/mm3 (4.2-5.4)
[2022-11-14 09:18] LABS: Anion Gap 3 (5-15); BUN 19 mg/dL (7-18); Calcium,Total 9.2 mg/dL (8.5-10.1); Chloride 108 mmol/L (98-107); Creatinine, Serum 0.58 mg/dL (0.55-1.02); EST Glomerular Filtration Rate 105 mL/min (>60); Est Glom Filt Rate - Afr Amer 128 mL/min (>60); Glucose 91 mg/dL (74-106); Sodium Level 140 mmol/L (136-145)
== END ==
LOC: OLS.WHLTSB 05:00
PROVIDERS: PCP Student in an Organized Health Care Education/Training Program; Visit Provider Internal Medicine
DX: I10 Essential (primary) hypertension (principal); E78.5 Hyperlipidemia, unspecified; F01.50 Vascular dementia, unspecified severity, without behavioral disturbance, psychotic disturbance, mood disturbance, and anxiety; S82.201D Unspecified fracture of shaft of right tibia, subsequent encounter for closed fracture with routine healing
CPT/HCPCS: 36415; 80048; 85027

== ENCOUNTER → 2022-12-12 | Outpatient (REF) | payer MEDICARE, OTHER, SELFPAY ==
[2022-12-12 07:33] LABS: Hematocrit 37.2 % (37-47); Hemoglobin 11.2 g/dL (12.0-15.0); Mean Corp Hgb Conc 30.1 g/dL (32-36); Mean Corpuscular Hgb 27.2 pg (27.0-32.0); Mean Corpuscular Volume 90.3 fL (81-99); Mean Platelet Vol. 11.3 fl (6.2-12.0); Platelet Count 226 K/mm3 (150-450); RBC Distribution Width CV 13.6 % (11.6-14.6); RBC Distribution Width SD 45.2 fl (35.1-43.9); Red Blood Count 4.12 M/mm3 (4.2-5.4); White Blood Count 5.3 K/mm3 (4.4-11.0)
[2022-12-12 07:39] LABS: Anion Gap 3 (5-15); BUN 13 mg/dL (7-18); BUN/Creat Ratio 25.6 RATIO (10-20); Calcium,Total 9.1 mg/dL (8.5-10.1); Chloride 107 mmol/L (98-107); Creatinine, Serum 0.51 mg/dL (0.55-1.02); EST Glomerular Filtration Rate 122 mL/min (>60); Est Glom Filt Rate - Afr Amer 147 mL/min (>60); Glucose 88 mg/dL (74-106); Sodium Level 138 mmol/L (136-145)
== END ==
LOC: OLS.WHLTSB 05:00
PROVIDERS: PCP Student in an Organized Health Care Education/Training Program; Visit Provider Internal Medicine
DX: I10 Essential (primary) hypertension (principal); E78.5 Hyperlipidemia, unspecified; F01.50 Vascular dementia, unspecified severity, without behavioral disturbance, psychotic disturbance, mood disturbance, and anxiety; S82.201D Unspecified fracture of shaft of right tibia, subsequent encounter for closed fracture with routine healing
CPT/HCPCS: 36415; 80048; 85027

== ENCOUNTER → 2023-01-09 | Outpatient (REF) | payer MEDICARE, OTHER, SELFPAY ==
[2023-01-09 08:17] LABS: Hematocrit 35.4 % (37-47); Mean Corp Hgb Conc 31.1 g/dL (32-36); Mean Corpuscular Volume 90.1 fL (81-99); Mean Platelet Vol. 11.7 fl (6.2-12.0); Platelet Count 215 K/mm3 (150-450); RBC Distribution Width CV 13.8 % (11.6-14.6); RBC Distribution Width SD 45.4 fl (35.1-43.9); Red Blood Count 3.93 M/mm3 (4.2-5.4); White Blood Count 5.1 K/mm3 (4.4-11.0)
[2023-01-09 08:38] LABS: Anion Gap 5 (5-15); BUN 16 mg/dL (7-18); BUN/Creat Ratio 31.9 RATIO (10-20); Calcium,Total 8.8 mg/dL (8.5-10.1); Chloride 109 mmol/L (98-107); EST Glomerular Filtration Rate 123 mL/min (>60); Est Glom Filt Rate - Afr Amer 149 mL/min (>60); Glucose 90 mg/dL (74-106); Sodium Level 141 mmol/L (136-145); T4 Free Direct 1.52 ng/dL (0.76-1.46)
== END ==
LOC: OLS.WHLTSB 05:00
PROVIDERS: PCP Student in an Organized Health Care Education/Training Program; Visit Provider Internal Medicine
DX: E03.9 Hypothyroidism, unspecified (principal); I10 Essential (primary) hypertension; E78.5 Hyperlipidemia, unspecified; F01.50 Vascular dementia, unspecified severity, without behavioral disturbance, psychotic disturbance, mood disturbance, and anxiety; S82.201D Unspecified fracture of shaft of right tibia, subsequent encounter for closed fracture with routine healing
CPT/HCPCS: 36415; 80048; 84439; 84443; 85027

== ENCOUNTER → 2023-02-21 | Outpatient (REF) | payer MEDICARE, OTHER, SELFPAY ==
[2023-02-21 11:01] LABS: AST(SGOT) 34 U/L (15-37); Alanine Aminotransfer ALT/SGPT 26 U/L (13-56); Albumin, Serum 3.1 g/dL (3.2-5.0); Alkaline Phosphatase 105 U/L (45-117); Bilirubin, Direct 0.09 mg/dL (0.00-0.30); Globulin 3.7 g/dL (2.2-4.2); Protein, Total 6.8 g/dL (6.4-8.2); T4 Free Direct 0.94 ng/dL (0.76-1.46)
== END ==
LOC: OLS.WHLTSB 05:00
PROVIDERS: PCP Student in an Organized Health Care Education/Training Program; Visit Provider Internal Medicine
DX: E03.9 Hypothyroidism, unspecified (principal)
CPT/HCPCS: 36415; 80076; 84439; 84443

== ENCOUNTER → 2023-05-23 | Outpatient (REF) | payer MEDICARE, OTHER, SELFPAY ==
[2023-05-23 10:26] LABS: AST(SGOT) 38 U/L (15-37); Alanine Aminotransfer ALT/SGPT 31 U/L (13-56); Albumin, Serum 3.4 g/dL (3.2-5.0); Alkaline Phosphatase 95 U/L (45-117); Bilirubin, Direct 0.12 mg/dL (0.00-0.30); Globulin 3.6 g/dL (2.2-4.2); T4 Free Direct 1.09 ng/dL (0.76-1.46); Thyroid Stim Hormone (TSH) 8.94 uIU/mL (0.358-3.74)
== END ==
LOC: OLS.WHLTSB 05:15
PROVIDERS: PCP Student in an Organized Health Care Education/Training Program; Visit Provider Internal Medicine
DX: E03.9 Hypothyroidism, unspecified (principal); Z79.899 Other long term (current) drug therapy
CPT/HCPCS: 36415; 80076; 84439; 84443

== ENCOUNTER → 2023-07-04 | Outpatient (REF) | payer MEDICARE, OTHER, SELFPAY ==
[2023-07-04 09:26] LABS: Absolute Lymphocyte Count 2.09 X10^3/uL (0.83-4.51); Basophil# 0.04 X10^3/uL; Basophil% 0.6 % (0-1); Eosinophil# 0.29 X10^3/uL; Eosinophils% 4.6 % (0-5); Hematocrit 35.7 % (37-47); Hemoglobin 10.7 g/dL (12.0-15.0); Lymphocyte # 2.09 X10^3/ul (0.83-4.51); Lymphocyte % 32.8 % (19-41); Mean Corpuscular Hgb 27.9 pg (27.0-32.0); Mean Corpuscular Volume 93.2 fL (81-99); Mean Platelet Vol. 11.9 fl (6.2-12.0); Monocyte# 0.93 X10^3/uL; Monocyte% 14.6 % (0-10); NRBC Flagged by Analyzer 0 % (0-5); Neutrophil # 3.01 X10^3/uL (2.7-7.7); Neutrophil % 47.2 % (47-70); Platelet Count 220 K/mm3 (150-450); RBC Distribution Width CV 13.8 % (11.6-14.6); RBC Distribution Width SD 46.9 fl (35.1-43.9); Red Blood Count 3.83 M/mm3 (4.2-5.4); White Blood Count 6.4 K/mm3 (4.4-11.0)
[2023-07-04 09:36] LABS: Anion Gap 7 (5-15); BUN 16 mg/dL (7-18); BUN/Creat Ratio 30.8 RATIO (10-20); Calcium,Total 8.6 mg/dL (8.5-10.1); Chloride 107 mmol/L (98-107); Creatinine, Serum 0.52 mg/dL (0.55-1.02); EST Glomerular Filtration Rate 119 mL/min (>60); Est Glom Filt Rate - Afr Amer 144 mL/min (>60); Glucose 73 mg/dL (74-106); Potassium 4.1 mmol/L (3.5-5.1); Sodium Level 141 mmol/L (136-145)
== END ==
LOC: OLS.WHLTSB 05:00
PROVIDERS: PCP Student in an Organized Health Care Education/Training Program; Visit Provider Internal Medicine
DX: I10 Essential (primary) hypertension (principal)
CPT/HCPCS: 36415; 80048; 85025

== ENCOUNTER → 2023-09-05 | Outpatient (REF) | payer MEDICARE, OTHER, SELFPAY ==
--- OUTSIDE RECORDS SUMMARY | 2023-09-05 04:50 | XMS RPT_ITS | CCD ---
Author Name Unknown Address [address] [place] [address] [address] [place] [id number] Organization [facility] Care Team Providers Care Personal Service Representative Name Role Phone KATHY BROWN Attending Unavailable TAHIRA WHITEHEAD Primary Care Unavailable DAIANA BROWN Referring Unavailable Allergies Allergy Classification Reported Allergen(s) Allergy Type Date of Onset Reaction(s) Facility (1 source) levothyroxine; Translations: [LEVOTHYROXINE] Drug Allergy 09-28-2014 [facility] (1 source) Naproxen; Translations: [NAPROXEN] Drug Allergy 06-13-2005 [facility] Rep[facility] Problems Problem Classification Problem Date Documented Da te Episodic/Chronic Acute cerebrovascular disease (2 sources) Cerebral infarction, unspecified; Translations: [Nontraumatic intracerebral hemorrhage in cerebellum] Onset: 10-22-2019 Chronic Disorders of lipid metabolism (1 source) Mixed hyperlipidemia; Translations: [Mixed hyperlipidemia] Onset: 05-15-2022 Chronic Essential hypertension (1 source) Essential (primary) hypertension; Translations: [Essential hypertension] Onset: 02-11-2020 Chronic Results Test Name Value Interpretation Reference Range Facil ity Encounters Encounter Date Encounter Type Care Provider Facility Start: 05-15-2022 End: 05-15-2022 ambulatory KATHY BROWN Facility:[facility] Procedures Date Procedure Procedure Detail Performing Clinician Start: 10-20-2019 Antibody screen Payers Date Payer Category Payer Medicare [id number] 2000 Medicare [id number] Progress note 05-15-2022 Note Date & Type Note Facility 05-15-2022 Note HNO ID: [id number] Author: Kathy Borwn APRN.CNP Service: ? Author Type: Nurse Practitioner Type: Progress Notes Filed: 05/17/2022 9:25 AM Note Text: [facility] Initial Visit CEREBROVASCULAR HISTORY Erin Johnson is a 86 year old female who presents for a neurological evaluation. Previous patient of Dr. Hanks in [place] Previous visit with Dr. 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 May have been a transient hypertensive spike at the time. Recovered well with no other issues. 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 Continue to keep close tab on BP Since last visit, Ms Johnson reports no interval new symptoms. She is currently quite independent and has not had any further issues. She underwent a 30 day cardiac event monitor which did not demonstrate evidence of atrial fibrillation -- this was intended to evaluate for occult afib in case her ICH was hemorrhagic conversion of ischemic stroke (especially since she also had a concurrent ischemic event in internal capsule). She remains high functioning and independent in most ADLs, but family has been preferring that she not drive by herself. Office Visit 05/15/22 Patient presents for an evaluation. She resides in a nursing facility. She is taking all medications as prescribed Blood pressure medication should be discontinued, she is only on Amlodipine 5 mg daily. Important to avoid hypotension No new neurological symptoms Regular follow up with PCP for continued stroke risk factor managment Reason for Visit: stroke, cerebral hemorrhage and cerebral infarction Date of Last Event: 10/21/2019 Antiplatelets/Anticoagulants: Aspirin Statins: Atorvastatin Side effects: No Refills needed: No Residual Deficits: No residual deficits Current PT/OT/ST: No therapy needs Initial Discharge Disposition: Home PAST MEDICAL HISTORY Diagnosis Date Disorder of bone and cartilage, unspecified Diverticulosis of colon (without mention of hemorrhage) Diverticulosis Goiter, unspecified Unspecified essential hypertension Unspecified hypothyroidism Vascular dementia (HCC) PAST SURGICAL HISTORY Procedure Laterality Date COLONOSCOP W/ OR W/O [facility] SPEC 06/24/2001 sigmoidoscopy PAST SURGICAL HISTORY OF cyst removed from right wrist REMOVAL ADENOIDS,PRIMARY,<12 Y/O Adenoidectomy REMOVAL OF TONSILS,<12 Y/O Tonsillectomy FAMILY HISTORY Problem Relation Age of Onset Ischemic Heart Disease Father Stroke Mother Social History Tobacco Use Smoking status: Never Smokeless tobacco: Never Vaping Use Vaping Use: Never used Substance Use Topics Alcohol use: No Drug use: Never MEDICATIONS Current Outpatient Medications Medication Sig acetaminophen (TYLENOL) 325 mg cap Take by mouth. SYNTHROID 100 mcg tablet Take 1 tablet by mouth once daily. BRAND NAME, Take on empty stomach atorvastatin (LIPITOR) 40 mg tablet Take 1 tablet by mouth daily at bedtime. Sennosides (SENNA) 8.6 mg cap Take 2 capsules by mouth as needed. aspirin 81 mg chewable tablet Take 1 tablet by mouth once daily. No current facility-administered medications for this visit. ALLERGIES ALLERGIES Allergen Reactions Levothyroxine Other: See Comments palpitations on generic Naprosyn [Naproxen] nosebleeds PHYSICAL EXAMINATION There were no vitals taken for this visit. General: Well-developed, well-nourished, in no acute distress. HEENT: Normocephalic, atraumatic. Sclerae anicteric. Oropharynx clear. Neck: No carotid bruit. Heart: Regular rate and rhythm, S1 S2, no murmurs. Lungs: Clear to auscultation bilaterally. Abdomen: Abdomen soft, non-tender. Bowel sounds normal. No masses, organomegaly. Extremities: No edema, cyanosis, or clubbing. 2+ dorsalis pedis pulses bilaterally. Skin: No rash or ecchymoses. Neurological: Awake, alert, oriented to person, place, and time. Speech fluent, no dysarthria. Naming, repetition, recall, comprehension, calculation intact. Good attention and insight into illness. Cranial Nerves: PERRL, extraocular movements intact without nystagmus. Visual menendez full. Fundoscopic examination normal with sharp optic discs bilaterally. Facial sensation and movements normal and symmetric. Palate elevates equal bilaterally. Tongue midline. Trapezius strength 5/5 bilaterally. Motor: Normal bulk and tone. Strength 5/5 throughout. No pronator drift or tremor. Sensation: Intact light touch, pinprick, temperature, proprioception, and vibration. Coordination: Rapid alternating movements symmetric bilaterally. [id number], [id number] without dysmetria bilaterally. Reflexes: 2+/4 reflexes symmetric bilaterally. Plantar response is flexor bilaterally. Gait: Narrow-based, normal spaced and stable withou (more content not included)... [facility] Progress note 06-28-2021 Note Date & Type Note Facility 06-28-2021 Note HNO ID: [id number] Author: Daiana Brown APRN.BACK PADDER Service: ? Author Type: Nurse Practitioner Type: Progress Notes Filed: 06/28/2021 1:39 PM Note Text: Neurology Follow Up Note Date: June 28, 2021 Patient Name: Erin Johnson HPI: This is Ms. Erin Johnson a 85 year old female who presents to [facility] for follow up of CVA. Pt was last seen by Dr. Hanks a year ago. Date of stroke: 10/20/19 Pt had suffered a a cerebellar ICH with infarct the left galvez radiata. Work up for stroke was negative. She remained independent until recently with a left hip fracture s/p ORIF and is currently residing in nursing facility. No post op complications. She is no longer on BP meds as facility did not want pt to become to hypotensive and risk of falls. Medications: acetaminophen (TYLENOL) 325 mg cap Take by mouth. SYNTHROID 100 mcg tablet Take 1 tablet by mouth once daily. BRAND NAME, Take on empty stomach atorvastatin (LIPITOR) 40 mg tablet Take 1 tablet by mouth daily at bedtime. Sennosides (SENNA) 8.6 mg cap Take 2 capsules by mouth as needed. aspirin 81 mg chewable tablet Take 1 tablet by mouth once daily. PMH/PSH/FH/ALLERGIES: Reviewed from last visit and unchanged. ROS: Reviewed from prior visit and unchanged. Physical Exam: Vitals: BP 140/78 (BP Site: Left Arm, BP Position: Sitting, BP Cuff Size: Regular Adult) Pulse 65 Ht 5' 1 (1.549 m) Wt 120 lb (54.4 kg) SpO2 98% BMI 22.67 kg/m? Gen: well appearing, in no acute distress CV: 2+ radial pulses Alert, oriented to person, place, time. Speech fluent with no dysarthria or aphasia. Attention and concentration intact. Recent and remote memory intact. Fund of knowledge is normal. Pupils equally round and reactive to light. Extraocular muscles intact. Visual menendez full, face symmetric. Normal muscles bulk and tone Muscle strength symmetric, 5/5 bilateral upper and lower extremities. Sensation intact to light touch throughout Coordination intact Gait in wheelchair for distance Studies: Most recent labs Most recent imaging ASSESSMENT/PLAN: 1. Cerebellar hemorrhage, acute (HCC) - ICD9: 431, ICD10: I61.4 (primary diagnosis) - CONSULT TO NEUROLOGY - continue with asa 2. Cerebellar stroke (HCC) - ICD9: 434.91, ICD10: I63.9 - CONSULT TO NEUROLOGY 3. Hypertension, unspecified type - ICD9: 401.9, ICD10: I10 - good control - Continue current medication(s) - Recommended regular aerobic exercise. - Recommend home blood pressure monitoring, to bring results in on next visit - Goal of BP <140/90 For Stroke patients, I discussed risk factor modification including: Hypertension - Target blood pressure <140/90, <130/85 for high risk, normal 120/80 Physical inactivity - target exercise at least 3 times per week Obesity - target ideal body weight and girth <35 for women, <40 for men Diabetes - Target <6.5-7% Smoking - Target smoking cessation Hyperlipidemia - Target total cholesterol < 200, Target LDL <100, < 70 for high risk, Target HDL >45 for men, >55 for women, Target triglycerides <150 Daiana Brown APRN.BACK PADDER [facility], Department of Neurology [facility] Summary Purpose Family History No Family History Records FoundNo Family History Records FoundNo Family History Records Found Advance Directives No Advanced Directives Records FoundNo Advanced Directives Records FoundNo Advanced Directives Records Found Additional Source Comments INFORMATION SOURCE (unrecogn ized section and content) DATE CREATED AUTHOR AUTHOR'S ORGANIZ ATION 06/29/2021 [facility] DATE CREATED AUTHOR AUTHOR'S ORGANIZ ATION 05/22/2022 [facility] FOR RECORDS PERTAINING TO PATIENTS WHO ARE OR HAVE BEEN ENROLLED IN A CHEMICAL DEPENDENCY/SUBSTANCEABUSE PROGRAM, SOME INFORMATION MAY BE OMITTED. This clinical summary was aggregated from multiple sources. Caution should be exercised in using it in the provision of clinical care. This summary normalizes information from multiple sources, and as a consequence, information in this document may materially change the coding, format and clinical context of patient data. In addition, data may be omitted in some cases. CLINICAL DECISIONS SHOULD BE BASED ON THE PRIMARY CLINICAL RECORDS. [employer] provides no warranty or guarantee of the accuracy or completeness of information in this document.
[2023-09-05 09:15] LABS: Cholesterol 116 mg/dL (200); High Density Lipoprotein 58 mg/dL; Triglycerides 85 mg/dL; Very Low Density Lipoprotein 17 mg/dL (5-40)
== END ==
LOC: OLS.WHLTSB 05:00
PROVIDERS: PCP Student in an Organized Health Care Education/Training Program; Visit Provider Internal Medicine
DX: E78.5 Hyperlipidemia, unspecified (principal)
CPT/HCPCS: 36415; 80061

== ENCOUNTER → 2023-10-01 | Outpatient (REF) | payer MEDICARE, OTHER, SELFPAY ==
[2023-10-01 10:51] LABS: T4 Free Direct 1.42 ng/dL (0.76-1.46)
== END ==
LOC: OLS.WHLTSB 05:00
PROVIDERS: PCP Student in an Organized Health Care Education/Training Program; Visit Provider Internal Medicine
DX: E03.9 Hypothyroidism, unspecified (principal); E78.5 Hyperlipidemia, unspecified
CPT/HCPCS: 36415; 84439; 84443

== ENCOUNTER → 2023-10-10 | Outpatient (REF) | payer MEDICARE, OTHER, SELFPAY ==
[2023-10-10 08:59] LABS: Absolute Lymphocyte Count 1.87 X10^3/uL (0.83-4.51); Absolute Neutrophil Count 3.4 X10^3/uL (2.0-7.7); Basophil# 0.04 X10^3/uL; Basophil% 0.6 % (0-1); Eosinophil# 0.17 X10^3/uL; Eosinophils% 2.7 % (0-5); Hematocrit 33.4 % (37-47); Hemoglobin 10.3 g/dL (12.0-15.0); Lymphocyte # 1.87 X10^3/ul (0.83-4.51); Lymphocyte % 29.7 % (19-41); Mean Corp Hgb Conc 30.8 g/dL (32-36); Mean Corpuscular Hgb 27.8 pg (27.0-32.0); Mean Corpuscular Volume 90.3 fL (81-99); Mean Platelet Vol. 11.5 fl (6.2-12.0); Monocyte% 12.7 % (0-10); NRBC Flagged by Analyzer 0 % (0-5); Neutrophil # 3.41 X10^3/uL (2.7-7.7); Neutrophil % 54.1 % (47-70); Platelet Count 245 K/mm3 (150-450); RBC Distribution Width CV 14.4 % (11.6-14.6); RBC Distribution Width SD 47.2 fl (35.1-43.9); White Blood Count 6.3 K/mm3 (4.4-11.0)
[2023-10-10 09:48] LABS: Anion Gap 4 (5-15); BUN 23 mg/dL (7-18); BUN/Creat Ratio 38.2 RATIO (10-20); Calcium,Total 9.3 mg/dL (8.5-10.1); Chloride 109 mmol/L (98-107); EST Glomerular Filtration Rate 100 mL/min (>60); Est Glom Filt Rate - Afr Amer 121 mL/min (>60); Glucose 88 mg/dL (74-106); Potassium 4.1 mmol/L (3.5-5.1); Sodium Level 138 mmol/L (136-145)
== END ==
LOC: OLS.WHLTSB 04:00
PROVIDERS: PCP Student in an Organized Health Care Education/Training Program; Referring Provider Internal Medicine; Visit Provider Internal Medicine
DX: I10 Essential (primary) hypertension (principal); E78.5 Hyperlipidemia, unspecified
CPT/HCPCS: 36415; 80048; 85025

== ENCOUNTER → 2023-11-24 | Outpatient (REF) | payer MEDICARE, OTHER, SELFPAY ==
[2023-11-24 15:17] LABS: Color, Urine Straw (Yellow); Glucose, Dipstick Normal (Normal); Ketone-Dipstick Negative (Negative); Leukocyte Esterase-Dipstick 500 /ul (Negative); Nitrite-Dipstick Positive (Negative); Occult Blood-Urine 25 /ul (Negative); Protein-Dipstick Negative (Negative); Urine Bilirubin Dipstick Negative (Negative); Urine Clarity Clear (Clear); Urine Urobilinogen Normal (Normal)
== END ==
LOC: OLS.WHLTSB 10:00
PROVIDERS: PCP Student in an Organized Health Care Education/Training Program; Visit Provider Internal Medicine
DX: N39.0 Urinary tract infection, site not specified (principal)
CPT/HCPCS: 81002; 87077; 87086; 87088; 87186

== ENCOUNTER → 2023-11-26 | Outpatient (REF) | payer MEDICARE, OTHER, SELFPAY ==
[2023-11-26 10:16] LABS: T4 Free Direct 1.27 ng/dL (0.76-1.46); Thyroid Stim Hormone (TSH) 1.32 uIU/mL (0.358-3.74)
== END ==
LOC: OLS.WHLTSB 05:00
PROVIDERS: PCP Student in an Organized Health Care Education/Training Program; Visit Provider Internal Medicine
DX: E03.9 Hypothyroidism, unspecified (principal)
CPT/HCPCS: 36415; 84439; 84443

== ENCOUNTER → 2024-01-02 | Outpatient (REF) | payer MEDICARE, OTHER, SELFPAY ==
[2024-01-02 07:22] LABS: Absolute Neutrophil Count 3.6 X10^3/uL (2.0-7.7); Basophil# 0.03 X10^3/uL; Basophil% 0.5 % (0-1); Eosinophil# 0.12 X10^3/uL; Eosinophils% 1.8 % (0-5); Hematocrit 35.4 % (37-47); Hemoglobin 10.7 g/dL (12.0-15.0); Lymphocyte % 29.3 % (19-41); Mean Corp Hgb Conc 30.2 g/dL (32-36); Mean Corpuscular Hgb 27.4 pg (27.0-32.0); Mean Corpuscular Volume 90.5 fL (81-99); Mean Platelet Vol. 11.5 fl (6.2-12.0); Monocyte% 12.3 % (0-10); NRBC Flagged by Analyzer 0 % (0-5); Neutrophil # 3.63 X10^3/uL (2.7-7.7); Neutrophil % 55.9 % (47-70); Platelet Count 232 K/mm3 (150-450); RBC Distribution Width CV 13.8 % (11.6-14.6); RBC Distribution Width SD 45.2 fl (35.1-43.9); Red Blood Count 3.91 M/mm3 (4.2-5.4); White Blood Count 6.5 K/mm3 (4.4-11.0)
[2024-01-02 07:34] LABS: Anion Gap 1 (5-15); BUN 19 mg/dL (7-18); BUN/Creat Ratio 34.8 RATIO (10-20); Calcium,Total 9.2 mg/dL (8.5-10.1); Chloride 108 mmol/L (98-107); Creatinine, Serum 0.55 mg/dL (0.55-1.02); EST Glomerular Filtration Rate 112 mL/min (>60); Est Glom Filt Rate - Afr Amer 135 mL/min (>60); Glucose 83 mg/dL (74-106); Potassium 3.9 mmol/L (3.5-5.1); Sodium Level 139 mmol/L (136-145)
== END ==
LOC: OLS.WHLTSB 05:00
PROVIDERS: PCP Student in an Organized Health Care Education/Training Program; Visit Provider Internal Medicine
DX: I10 Essential (primary) hypertension (principal); E78.5 Hyperlipidemia, unspecified
CPT/HCPCS: 36415; 80048; 85025

== ENCOUNTER → 2024-03-25 | Outpatient (REF) | payer MEDICARE, OTHER, SELFPAY ==
[2024-03-25 10:53] LABS: Absolute Lymphocyte Count 1.73 X10^3/uL (0.83-4.51); Absolute Neutrophil Count 3.1 X10^3/uL (2.0-7.7); Basophil# 0.05 X10^3/uL; Basophil% 0.9 % (0-1); Eosinophil# 0.15 X10^3/uL; Eosinophils% 2.6 % (0-5); Hematocrit 32.6 % (37-47); Lymphocyte # 1.73 X10^3/ul (0.83-4.51); Lymphocyte % 29.9 % (19-41); Mean Corp Hgb Conc 30.7 g/dL (32-36); Mean Corpuscular Hgb 27.5 pg (27.0-32.0); Mean Corpuscular Volume 89.8 fL (81-99); Mean Platelet Vol. 11.2 fl (6.2-12.0); Monocyte# 0.76 X10^3/uL; Monocyte% 13.1 % (0-10); NRBC Flagged by Analyzer 0 % (0-5); Neutrophil # 3.08 X10^3/uL (2.7-7.7); Neutrophil % 53.2 % (47-70); Platelet Count 255 K/mm3 (150-450); RBC Distribution Width CV 14.7 % (11.6-14.6); RBC Distribution Width SD 48.8 fl (35.1-43.9); Red Blood Count 3.63 M/mm3 (4.2-5.4); White Blood Count 5.8 K/mm3 (4.4-11.0)
[2024-03-25 11:04] LABS: ALB/GLOB Ratio 0.8 RATIO (0.9-2.4); AST(SGOT) 30 U/L (15-37); Alanine Aminotransfer ALT/SGPT 20 U/L (13-56); Alkaline Phosphatase 130 U/L (45-117); Anion Gap 5 (5-15); BUN 12 mg/dL (7-18); BUN/Creat Ratio 20.4 RATIO (10-20); Calcium,Total 9.3 mg/dL (8.5-10.1); Chloride 107 mmol/L (98-107); Creatinine, Serum 0.59 mg/dL (0.55-1.02); EST Glomerular Filtration Rate 102 mL/min (>60); Est Glom Filt Rate - Afr Amer 124 mL/min (>60); Globulin 3.7 g/dL (2.2-4.2); Glucose 84 mg/dL (74-106); Potassium 3.9 mmol/L (3.5-5.1); Protein, Total 6.7 g/dL (6.4-8.2); Sodium Level 140 mmol/L (136-145)
== END ==
LOC: OLS.WHLTSB 05:00
PROVIDERS: PCP Student in an Organized Health Care Education/Training Program; Visit Provider Internal Medicine
DX: M62.81 Muscle weakness (generalized) (principal); E78.5 Hyperlipidemia, unspecified
CPT/HCPCS: 36415; 80053; 85025

== ENCOUNTER → 2024-04-01 | Outpatient (REF) | payer MEDICARE, OTHER, SELFPAY ==
[2024-04-01 09:04] LABS: T4 Free Direct 1.39 ng/dL (0.76-1.46); Thyroid Stim Hormone (TSH) 1.94 uIU/mL (0.358-3.74)
== END ==
LOC: OLS.WHLTSB 05:00
PROVIDERS: PCP Student in an Organized Health Care Education/Training Program; Visit Provider Internal Medicine
DX: E03.9 Hypothyroidism, unspecified (principal); E78.5 Hyperlipidemia, unspecified
CPT/HCPCS: 36415; 84439; 84443

== ENCOUNTER → 2024-04-09 05:00 | Outpatient (REF) | payer MEDICARE, OTHER, SELFPAY ==
[2024-04-09 08:21] LABS: Absolute Lymphocyte Count 2.03 X10^3/uL (0.83-4.51); Absolute Neutrophil Count 2.9 X10^3/uL (2.0-7.7); Basophil# 0.04 X10^3/uL; Basophil% 0.7 % (0-1); Eosinophil# 0.18 X10^3/uL; Eosinophils% 3.1 % (0-5); Hematocrit 33.4 % (37-47); Hemoglobin 10.2 g/dL (12.0-15.0); Lymphocyte # 2.03 X10^3/ul (0.83-4.51); Lymphocyte % 34.5 % (19-41); Mean Corp Hgb Conc 30.5 g/dL (32-36); Mean Corpuscular Hgb 27.4 pg (27.0-32.0); Mean Corpuscular Volume 89.8 fL (81-99); Mean Platelet Vol. 11.3 fl (6.2-12.0); Monocyte# 0.77 X10^3/uL; Monocyte% 13.1 % (0-10); NRBC Flagged by Analyzer 0 % (0-5); Neutrophil # 2.86 X10^3/uL (2.7-7.7); Neutrophil % 48.4 % (47-70); Platelet Count 265 K/mm3 (150-450); RBC Distribution Width CV 14.7 % (11.6-14.6); Red Blood Count 3.72 M/mm3 (4.2-5.4); White Blood Count 5.9 K/mm3 (4.4-11.0)
[2024-04-09 08:46] LABS: Anion Gap 5 (5-15); BUN 15 mg/dL (7-18); BUN/Creat Ratio 25.1 RATIO (10-20); Calcium,Total 9.7 mg/dL (8.5-10.1); Chloride 106 mmol/L (98-107); EST Glomerular Filtration Rate 101 mL/min (>60); Est Glom Filt Rate - Afr Amer 122 mL/min (>60); Glucose 87 mg/dL (74-106); Potassium 3.7 mmol/L (3.5-5.1); Sodium Level 138 mmol/L (136-145)
== END ==
LOC: OLS.WHLTSB 05:00
PROVIDERS: PCP Student in an Organized Health Care Education/Training Program; Visit Provider Internal Medicine
DX: I10 Essential (primary) hypertension (principal)
CPT/HCPCS: 36415; 80048; 85025

== ENCOUNTER → 2024-06-02 05:00 | Outpatient (REF) | payer MEDICARE, OTHER, SELFPAY ==
[2024-06-02 08:31] LABS: T4 Free Direct 1.34 ng/dL (0.76-1.46); Thyroid Stim Hormone (TSH) 0.816 uIU/mL (0.358-3.740)
== END ==
LOC: OLS.WHLTSB 05:00
PROVIDERS: PCP Student in an Organized Health Care Education/Training Program; Visit Provider Internal Medicine
DX: E03.9 Hypothyroidism, unspecified (principal)
CPT/HCPCS: 36415; 84439; 84443

== ENCOUNTER → 2024-09-03 | Outpatient (REF) | payer MEDICARE, OTHER, SELFPAY ==
[2024-09-03 06:53] LABS: Absolute Lymphocyte Count 1.82 X10^3/uL (0.83-4.51); Absolute Neutrophil Count 3.2 X10^3/uL (2.0-7.7); Basophil# 0.04 X10^3/uL; Basophil% 0.7 % (0-1); Eosinophil# 0.16 X10^3/uL; Eosinophils% 2.6 % (0-5); Hematocrit 29.4 % (37-47); Hemoglobin 8.8 g/dL (12.0-15.0); Lymphocyte # 1.82 X10^3/ul (0.83-4.51); Lymphocyte % 29.8 % (19-41); Mean Corp Hgb Conc 29.9 g/dL (32-36); Mean Corpuscular Hgb 26.1 pg (27.0-32.0); Mean Corpuscular Volume 87.2 fL (81-99); Mean Platelet Vol. 11.3 fl (6.2-12.0); Monocyte% 14.8 % (0-10); NRBC Flagged by Analyzer 0 % (0-5); Neutrophil # 3.17 X10^3/uL (2.7-7.7); Neutrophil % 51.9 % (47-70); Platelet Count 262 K/mm3 (150-450); RBC Distribution Width CV 14.7 % (11.6-14.6); RBC Distribution Width SD 47.6 fl (35.1-43.9); Red Blood Count 3.37 M/mm3 (4.2-5.4); White Blood Count 6.1 K/mm3 (4.4-11.0)
[2024-09-03 07:50] LABS: Anion Gap 5 (5-15); BUN 20 mg/dL (7-18); BUN/Creat Ratio 34.1 RATIO (10-20); Calcium,Total 9.1 mg/dL (8.5-10.1); Chloride 110 mmol/L (98-107); Cholesterol 162 mg/dL (200); Creatinine, Serum 0.59 mg/dL (0.55-1.02); EST Glomerular Filtration Rate 103 mL/min (>60); Est Glom Filt Rate - Afr Amer 124 mL/min (>60); Glucose 84 mg/dL (74-106); High Density Lipoprotein 74 mg/dL; Potassium 4.1 mmol/L (3.5-5.1); Sodium Level 141 mmol/L (136-145); Thyroid Stim Hormone (TSH) 0.255 uIU/mL (0.358-3.740); Triglycerides 56 mg/dL; Very Low Density Lipoprotein 11 mg/dL (5-40)
== END ==
LOC: OLS.WHLTSB 05:00
PROVIDERS: PCP Student in an Organized Health Care Education/Training Program; Visit Provider Internal Medicine
DX: I10 Essential (primary) hypertension (principal); E78.5 Hyperlipidemia, unspecified; E03.9 Hypothyroidism, unspecified
CPT/HCPCS: 36415; 80048; 80061; 84439; 84443; 85025

== ENCOUNTER → 2024-10-15 | Outpatient (REF) | payer MEDICARE, OTHER, SELFPAY | LOC: OLS.WHLTSB 05:00 | PROVIDERS: PCP Student in an Organized Health Care Education/Training Program; Visit Provider Internal Medicine | DX: E03.9 Hypothyroidism, unspecified (principal) | CPT/HCPCS: 36415; 84439; 84443 ==

== ENCOUNTER → 2024-11-05 | Outpatient (REF) | payer MEDICARE, OTHER, SELFPAY ==
[2024-11-05 07:48] LABS: Absolute Lymphocyte Count 1.77 X10^3/uL (0.83-4.51); Absolute Neutrophil Count 3.5 X10^3/uL (2.0-7.7); Basophil# 0.05 X10^3/uL; Basophil% 0.8 % (0-1); Eosinophil# 0.16 X10^3/uL; Eosinophils% 2.5 % (0-5); Hematocrit 31.5 % (37-47); Hemoglobin 9.8 g/dL (12.0-15.0); Lymphocyte # 1.77 X10^3/ul (0.83-4.51); Lymphocyte % 27.7 % (19-41); Mean Corp Hgb Conc 31.1 g/dL (32-36); Mean Corpuscular Hgb 26.6 pg (27.0-32.0); Mean Corpuscular Volume 85.6 fL (81-99); Mean Platelet Vol. 11.2 fl (6.2-12.0); Monocyte# 0.89 X10^3/uL; Monocyte% 13.9 % (0-10); NRBC Flagged by Analyzer 0 % (0-5); Neutrophil % 54.8 % (47-70); Platelet Count 266 K/mm3 (150-450); RBC Distribution Width CV 15.4 % (11.6-14.6); Red Blood Count 3.68 M/mm3 (4.2-5.4); White Blood Count 6.4 K/mm3 (4.4-11.0)
== END ==
LOC: OLS.WHLTSB 05:00
PROVIDERS: PCP Student in an Organized Health Care Education/Training Program; Visit Provider Internal Medicine
DX: D50.9 Iron deficiency anemia, unspecified (principal)
CPT/HCPCS: 36415; 85025

== ENCOUNTER → 2024-11-26 | Outpatient (REF) | payer MEDICARE, OTHER, SELFPAY | LOC: OLS.WHLTSB 05:00 | PROVIDERS: PCP Student in an Organized Health Care Education/Training Program; Visit Provider Internal Medicine | DX: E03.9 Hypothyroidism, unspecified (principal) | CPT/HCPCS: 36415; 84439; 84443 ==

== ENCOUNTER → 2024-12-03 | Outpatient (REF) | payer MEDICARE, OTHER, SELFPAY ==
[2024-12-03 08:07] LABS: Absolute Lymphocyte Count 1.81 X10^3/uL (0.83-4.51); Absolute Neutrophil Count 2.8 X10^3/uL (2.0-7.7); Basophil# 0.05 X10^3/uL; Basophil% 0.9 % (0-1); Eosinophil# 0.11 X10^3/uL; Hematocrit 33.9 % (37-47); Hemoglobin 10.6 g/dL (12.0-15.0); Lymphocyte # 1.81 X10^3/ul (0.83-4.51); Lymphocyte % 33.2 % (19-41); Mean Corp Hgb Conc 31.3 g/dL (32-36); Mean Corpuscular Hgb 26.7 pg (27.0-32.0); Mean Corpuscular Volume 85.4 fL (81-99); Mean Platelet Vol. 11.1 fl (6.2-12.0); Monocyte# 0.73 X10^3/uL; Monocyte% 13.4 % (0-10); NRBC Flagged by Analyzer 0 % (0-5); Neutrophil # 2.75 X10^3/uL (2.7-7.7); Neutrophil % 50.3 % (47-70); Platelet Count 274 K/mm3 (150-450); RBC Distribution Width CV 16.3 % (11.6-14.6); RBC Distribution Width SD 50.4 fl (35.1-43.9); Red Blood Count 3.97 M/mm3 (4.2-5.4); White Blood Count 5.5 K/mm3 (4.4-11.0)
[2024-12-03 08:34] LABS: Anion Gap 8 (5-15); BUN 15 mg/dL (4-19); BUN/Creat Ratio 20.9 RATIO (10-20); Calcium,Total 9.4 mg/dL (7.6-11.0); Carbon Dioxide 25.9 mmol/L (21.0-32.0); Chloride 105 mmol/L (98-108); Creatinine, Serum 0.73 mg/dL (0.70-1.20); EST Glomerular Filtration Rate 79 (>60); Glucose 84 mg/dL (70-99); Potassium 4.1 mmol/L (3.3-5.1); Sodium Level 140 mmol/L (133-145)
== END ==
LOC: OLS.WHLTSB 05:00
PROVIDERS: PCP Student in an Organized Health Care Education/Training Program; Visit Provider Internal Medicine
DX: I10 Essential (primary) hypertension (principal); E78.5 Hyperlipidemia, unspecified; M81.8 Other osteoporosis without current pathological fracture; R14.0 Abdominal distension (gaseous); M79.674 Pain in right toe(s); M79.675 Pain in left toe(s); Z86.16 Personal history of COVID-19
CPT/HCPCS: 36415; 80048; 84443; 85025

== ENCOUNTER → 2025-01-07 05:00 | Outpatient (REF) | payer MEDICARE, OTHER, SELFPAY ==
[2025-01-07 07:44] LABS: Thyroid Stim Hormone (TSH) 0.513 uIU/mL (0.300-4.200)
== END ==
LOC: OLS.WHLTSB 05:00
PROVIDERS: PCP Student in an Organized Health Care Education/Training Program; Visit Provider Internal Medicine
DX: E03.9 Hypothyroidism, unspecified (principal)
CPT/HCPCS: 36415; 84439; 84443

== ENCOUNTER → 2025-02-18 05:00 | Outpatient (REF) | payer MEDICARE, OTHER, SELFPAY | LOC: OLS.WHLTSB 05:00 | PROVIDERS: PCP Student in an Organized Health Care Education/Training Program; Visit Provider Internal Medicine | DX: E03.9 Hypothyroidism, unspecified (principal) | CPT/HCPCS: 36415; 84439; 84443 ==

== ENCOUNTER → 2025-03-04 05:10 | Outpatient (REF) | payer MEDICARE, OTHER, SELFPAY ==
--- OUTSIDE RECORDS SUMMARY | 2025-03-04 06:57 | XMS RPT_ITS | CCD ---
Author Organization [facility] Care Team Providers Care Button Bradder Name Role Phone KATHY BROWN Attending Unavailable FERCHO WHITEHEAD Primary Care Unavailable DAIANA BROWN Referring Unavailable Dr. Fercho Whitehead Primary Care Provider Brianna FOOD SERVICE KITCHEN SUPERVISOR, FOOD SERVICE KITCHEN SUPERVISOR-C Celia Attending Provider Dr. Fercho Morejon Primary Care Provider Brianna FOOD SERVICE KITCHEN SUPERVISOR, FOOD SERVICE KITCHEN SUPERVISOR-C Celia Attending Provider Dr. Fercho Morejon Primary Care Provider Dr. Arnulfo English Attending Provider [phone] Dr. Fercho Whitehead DO Primary Care Provider Arnulfo English MD Attending Provider Unavaila sara English MD, Dr. Arredondo Attending Provider Fercho Whitehead Primary Care Unavailable Oleghe OLS Efewongbe Attending Unavailabl e Oleghe Cyrus ASHFORDbe Attending Unavailabl e Whitehead, Fercho Primary Care Unavailable Whitehead, Fercho Primary Care Unavailable Chasghe OLS Efewongbe Attending Unavailabl e Whitehead, Fercho Primary Care Unavailable Oleghe OLS Efewongbe Attending Unavailabl e Whitehead, Fercho Primary Care Unavailable Oleantone OLSShereenongbe Attending Unavailabl e Whitehead, Fercho Primary Care Unavailable Ascencion, Fercho Referring Unavailable Indy Plata Attending Unavailable Brianna FOOD SERVICE KITCHEN SUPERVISORCelia Attending Unavailable Ascencion, Fercho Primary Care Unavailable Brianna FOOD SERVICE KITCHEN SUPERVISOR, Celia Attending Unavailable Fercho Whitehead Primary Care Unavailable Shereen Englishongbe Attending Unavailable Whitehead, Fercho Primary Care Unavailable Whitehead, Fercho Primary Care Unavailable Oleghe OLS Efewongbe Attending Unavailabl e Oleghe OLS Efewongbe Attending Fercho Monzon Primary Care Unavailable Arnulfo Buchanan Attending Fercho Monzon Primary Care Unavailable Arnulfo Buchanan Attending Fercho Monzon Primary Care Unavailable WhiteheadFerhco obregon Primary Care Unavailable Arnulfo Buchanan Attending Fercho Monzon Primary Care Unavailable ChasantonArnulfo Cowan Attending Chiara e Allergies Allergy Classification Reported Allergen(s) Allergy Type Date of Onset Reaction(s) Facility (20 sources) Naproxen; Translations: [NAPROXEN] Drug Allergy 06-13-[address] [facility] Repository (1 source) levothyroxine; Translations: [LEVOTHYROXINE] Drug Allergy 09-28-[address] [facility] Repository (1 source) Naproxen Drug Allergy 04-22-2024 [facility] Repository Medications Current Medications Medication Drug Class(es) Dates Sig (Normalized) Sig (Original) amLODIPine 5 mg oral tablet (20 sources) Dihydropyridine Calcium Channel Oksana Start: 04-22-2024 take 1 tablet by mouth once daily Amlodipine 5 mg tablet Active 5 mg PO daily April 22, 2024 12:00am Start: 03-30-2021 End: 07-28-2021 take 1 tablet by mouth once daily Amlodipine 5 mg tablet Discontinued 5 mg PO DAILY March 30, 2021 12:00am July 28, 2021 12:20pm Start: 10-23-2019 End: 03-24-2021 take 5 mg by mouth once daily Amlodipine 10 MG tablet Discontinued 5 mg PO DAILY October 23, 2019 1:00am March 24, 2021 7:27pm Start: 10-23-2019 End: 03-24-2021 take 5 mg by mouth once daily Amlodipine Discontinued 5 MG PO DAILY October 23, 2019 1:00am March 24, 2021 7:27pm aspirin 81 mg oral tablet (20 sources) Platelet Aggregation Inhibitor, Nonsteroidal Anti-inflammatory Drug Start: 03-06-2021 take 1 tablet by mouth once daily Aspirin 81 mg Tablet Active 81 mg PO DAILY March 06, 2021 12:00am atorvastatin 40 mg oral tablet (20 sources) HMG-CoA Reductase Inhibitor Start: 10-23-2019 take 1 tablet by mouth at bedtime Atorvastatin 40 MG tablet Active 40 mg PO AT BEDTIME October 23, 2019 1:00am bisacodyl 5 mg delayed release oral tablet (20 sources) Stimulant Laxative Start: 03-24-2021 take 2 tablets by mouth once daily as needed for constipation Bisacodyl 5 mg Tablet,Delayed Release (Dr/Ec) Active 10 mg PO DAILY NEEDED as needed for Constipation 0 March 24, 2021 12:00am Start: 03-24-2021 take 10 mg by mouth once daily as needed Bisacodyl Active 10 MG PO DAILY NEEDED 0 March 24, 2021 12:00am docusate sodium 50 mg / sennosides, long-term 8.6 mg oral tablet (20 sources) Start: 03-24-2021 Sennosides-Doc usate Sodium (Stool Softener-Stimulant Laxat) 8.6-50 mg Tablet Active 1 {tbl} PO TWICE A DAY 0 March 24, 2021 12:00am levothyroxine sodium 0.1 mg oral tablet (20 sources) l-Thyroxine Start: 04-22-2024 Levothyroxine (Synthroid) 100 mcg tablet Active 75 ug PO DAILY April 22, 2024 1:17pm pt unable to take generic Start: 03-11-2021 End: 04-22-2024 take 1 tablet by mouth once daily Levothyroxine (Synthroid) 100 mcg tablet Discontinued 100 ug PO DAILY March 11, 2021 12:00am April 22, 2024 1:18pm pt unable to take generic Mcypgknd-Kwb-Kn-Lycopen-Lute in (Centrum Silver) 1 EACH tablet (20 sources) Start: 10-16-2015 Olsionxs-Qmu-Vz-Lycopen-Lute in (Centrum Silver) 1 EACH tablet Active 1 TABLET PO DAILY October 16, 2015 1:47pm Start: 10-16-2015 take 1 tablet by urvashi once daily Ocoylstg-Izd-Iw-Lycopen-Lutein (Centrum Silver) 1 EACH tablet Active 1 {tbl} PO DAILY October 16, 2015 1:00am Start: 10-16-2015 Ogdbnkob-Eem-F u-Hgwzthx-Cpztmk (Centrum Silver) 1 EACH tablet Active 1 TABLET PO DAILY October 16, 2015 12:00am Start: 10-16-2015 Lixtkwvr-Tsb-R j-Sdpozid-Wowcem (Centrum Silver) 1 EACH tablet Active 1 TABLET PO DAILY October 16, 2015 1:00am nystatin 100 unt/mg topical powder (20 sources) Polyene Antifungal Start: 03-24-2021 Nystatin (N yamyc) 100,000 unit/gram Powder Active 1 NMA TOPICAL March 24, 2021 12:00am Please contact the information source for Protocol details. Start: 03-24-2021 Nystatin (Nyam yc) 100,000 unit/gram Powder Active 1 APPLIC TOPICAL March 24, 2021 12:00am Completed/Discontinued Medications Medication Drug Class(es) Dates Sig (Normalized) Sig (Original) acetaminophen 500 mg oral tablet (20 sources) Start: 03-08-2021 End: 03-24-2021 take 2 tablets by mouth three times daily Acetaminophen 500 mg tablet Discontinued 1000 mg PO THREE TIMES A DAY March 08, 2021 4:04pm March 24, 2021 7:27pm Start: 03-08-2021 End: 03-24-2021 take 1000 mg by mouth three times daily Acetaminophen Discontinued 1000 MG PO THREE TIMES A DAY March 08, 2021 4:04pm March 24, 2021 7:27pm ascorbic acid 500 mg oral tablet (20 sources) Vitamin C Start: 03-08-2021 End: 04-22-2024 take 1 tablet by mouth twice daily at mealtime Ascorbic Acid (Vitamin C) 500 mg tablet Discontinued 500 mg PO TWICE DAILY WITH MEALS March 08, 2021 4:04pm April 22, 2024 1:18pm cholecalciferol 0.05 mg oral capsule (20 sources) Vitamin D Start: 03-30-2021 End: 04-22-2024 take 1 capsule by mouth once daily Cholecalciferol (Vitamin D3) 50 mcg (2,000 unit) capsule Discontinued 50 ug PO DAILY March 30, 2021 12:00am April 22, 2024 1:17pm Start: 10-23-2019 End: 03-24-2021 take 60 ug by mouth once daily Cholecalciferol (VIT D3) Discontinued 60 MCG PO DAILY October 23, 2019 4:51pm March 24, 2021 7:27pm Start: 10-23-2019 End: 03-24-2021 take 60 ug by mouth once daily Cholecalciferol (VIT D3) Discontinued 60 ug PO DAILY October 23, 2019 1:00am March 24, 2021 7:27pm Start: 10-23-2019 End: 03-24-2021 take 60 ug by mouth once daily Cholecalciferol (VIT D3) Discontinued 60 MCG PO DAILY October 23, 2019 12:00am March 24, 2021 6:27pm Start: 10-23-2019 End: 03-24-2021 take 60 ug by mouth once daily Cholecalciferol (VIT D3) Discontinued 60 MCG PO DAILY October 23, 2019 1:00am March 24, 2021 7:27pm docusate sodium 100 mg oral capsule (20 sources) Start: 03-08-2021 End: 04-22-2024 take 1 capsule by mouth twice daily as needed for constipation Docusate Sodium (Dok) 100 mg Capsule Discontinued 100 mg PO TWICE DAILY NEEDED as needed for constipation 0 March 08, 2021 12:00am April 22, 2024 1:18pm ferrous sulfate 325 mg oral tablet (20 sources) Start: 03-08-2021 End: 04-22-2024 Ferrous Sulfate (Ferosul) 325 mg (65 mg iron) tablet Discontinued 325 mg PO 1200,1700 March 08, 2021 4:04pm April 22, 2024 1:18pm Food Supplemt, Lactose-Reduced (Ensure Enlive) 0.08 gram-1.5 kcal/mL Liquid (20 sources) Start: 03-08-2021 End: 03-08-2021 take 1 mL by mouth four times daily Food Supplemt, Lactose-Reduced (Ensure Enlive) 0.08 gram-1.5 kcal/mL Liquid Discontinued 120 ML PO 4 TIMES DAILY 0 March 08, 2021 12:28pm March 08, 2021 4:04pm Start: 03-08-2021 End: 03-08-2021 take 1 mL by mouth four times daily Food Supplemt, Lactose-Reduced (Ensure Enlive) 0.08 gram-1.5 kcal/mL Liquid Discontinued 120 mL PO 4 TIMES DAILY 0 March 08, 2021 12:00am March 08, 2021 4:04pm Start: 03-08-2021 End: 03-08-2021 take 1 mL by mouth four times daily Food Supplemt, Lactose-Reduced (Ensure Enlive) 0.08 gram-1.5 kcal/mL Liquid Discontinued 120 ML PO 4 TIMES DAILY 0 March 07, 2021 11:00pm March 08, 2021 3:04pm Start: 03-08-2021 End: 03-08-2021 take 1 mL by mouth four times daily Food Supplemt, Lactose-Reduced (Ensure Enlive) 0.08 gram-1.5 kcal/mL Liquid Discontinued 120 ML PO 4 TIMES DAILY 0 March 08, 2021 12:00am March 08, 2021 4:04pm Food Supplemt, Lactose-Reduced (Ensure Enlive) 0.08 gram-1.5 kcal/mL liquid (20 sources) Start: 03-08-2021 End: 03-24-2021 take 1 mL by mouth four times daily Food Supplemt, Lactose-Reduced (Ensure Enlive) 0.08 gram-1.5 kcal/mL liquid Discontinued 120 mL PO 4 TIMES DAILY March 08, 2021 4:04pm March 24, 2021 7:27pm Start: 03-08-2021 End: 03-24-2021 take 1 mL by mouth four times daily Food Supplemt, Lactose-Reduced (Ensure Enlive) 0.08 gram-1.5 kcal/mL liquid Discontinued 120 ML PO 4 TIMES DAILY March 08, 2021 3:04pm March 24, 2021 6:27pm Start: 03-08-2021 End: 03-24-2021 take 1 mL by mouth four times daily Food Supplemt, Lactose-Reduced (Ensure Enlive) 0.08 gram-1.5 kcal/mL liquid Discontinued 120 ML PO 4 TIMES DAILY March 08, 2021 4:04pm March 24, 2021 7:27pm magnesium hydroxide 80 mg/ml oral suspension (20 sources) Start: 03-08-2021 End: 03-24-2021 take 1 mL by mouth once daily as needed for constipation Magnesium Hydroxide 400 mg/5 mL Suspension Discontinued 30 mL PO DAILY NEEDED as needed for Constipation 0 March 08, 2021 12:00am March 24, 2021 7:27pm Start: 03-08-2021 End: 03-24-2021 take 1 mL by mouth once daily as needed Magnesium Hydroxide Discontinued 30 ML PO DAILY NEEDED 0 March 08, 2021 12:00am March 24, 2021 7:27pm polyethylene glycol 3350 68024 mg powder for oral solution (20 sources) Osmotic Laxative Start: 03-24-2021 End: 04-22-2024 take 17 g by mouth once daily Polyethylene Glycol 3350 17 gram Powder In Packet Discontinued 17 g PO DAILY 0 March 24, 2021 12:00am April 22, 2024 1:18pm Problems Active Problems Problem Classification Problem Date Documented Da te Episodic/Chronic Abdominal hernia (20 sources) Hiatal hernia; Translations: [Diaphragmatic hernia without obstruction or gangrene] 10-24-2019 Episodic Acquired foot deformities (1 source) Other hammer toe(s) (acquired), right foot; Translations: [Other hammer toe(s) (acquired), right foot] Onset: 4 Chronic Acute cerebrovascular disease (20 sources) Infarction of basal ganglia; 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 CVA happen ed on 10/20/19 Calculus of urinary tract (20 sources) Kidney stone; Translations: [Calculus of kidney] 10-24-2019 Episodic Comment on above: Within the right kid leni Cataract (1 source) Combined forms of age-related cataract, bilateral; Translations: [Combined forms of age-related cataract, bilateral] Onset: 4 Chronic Deficiency and other anemia (20 sources) Iron deficiency anemia; Translations: [Iron deficiency anemia, unspecified] 03-08-2021 Episodic Deficiency and other anemia (1 source) Iron deficiency anemia, unspecified; Translations: [Iron deficiency anemia, unspecified] Onset: 5 Episodic Disorders of lipid metabolism (20 sources) Hypercholesterolemia; Translations: [Pure hypercholesterolemia, unspecified] Onset: 2 03-30-2021 Chronic Diverticulosis and diverticulitis (20 sources) Diverticular disease; Translations: [Diverticulosis of intestine, part unspecified, without perforation or abscess without bleeding] 10-24-2019 Chronic E Codes: Fall (20 sources) Fall on same level from slipping, tripping or stumbling ; Translations: [Fall on same level from slipping, tripping and stumbling without subsequent striking against object, initial encounter] 03-07-2021 Episodic Essential hypertension (20 sources) Hypertensive disorder; Translations: [Essential (primary) hypertension] Onset: 0 03-07-2021 Chronic Fracture of neck of femur (hip) (20 sources) Closed intertrochanteric fracture; Translations: [Displaced intertrochanteric fracture of left femur, initial encounter for closed fracture] 03-16-2021 Episodic Malaise and fatigue (20 sources) Asthenia; Translations: [Other malaise] 03-06-2021 Episodic Nutritional deficiencies (20 sources) Vitamin D deficiency; Translations: [Vitamin D deficiency, unspecified] 03-08-2021 Chronic Osteoarthritis (20 sources) Osteoarthritis; Translations: [Unspecified osteoarthritis, unspecified site] 10-24-2019 Chronic Comment on above: has had a few inject ions in the knee Osteoporosis (20 sources) Osteoporosis; Translations: [Age-related osteoporosis without current pathological fracture] Onset: 5 07-28-2021 Chronic Other and unspecified benign neoplasm (20 sources) Hemangioma of liver; Translations: [Hemangioma of intra-abdominal structures] 10-24-2019 Episodic Other circulatory disease (1 source) Other specified peripheral vascular diseases; Translations: [Other specified peripheral vascular diseases] Onset: 4 Chronic Other eye disorders (1 source) Vitreous degeneration, bilateral; Translations: [Vitreous degeneration, bilateral] Onset: 4 Chronic Other gastrointestinal disorders (4 sources) Occult blood in stools; Translations: [Other fecal abnormalities] 04-23-2024 Episodic Other gastrointestinal disorders (1 source) Abdominal distension (gaseous); Translations: [Abdominal distension (gaseous)] Onset: 5 Episodic Residual codes; unclassified (20 sources) Insomnia; Translations: [Insomnia, unspecified] 03-08-2021 Episodic Spondylosis; intervertebral disc disorders; other back problems (20 sources) Backache; Translations: [Dorsalgia, unspecified] 10-31-2019 Episodic Syncope (20 sources) Syncope; Translations: [Syncope and collapse] 04-05-2021 Episodic Thyroid disorders (20 sources) Hypothyroidism; Translations: [Hypothyroidism, unspecified] Onset: 5 03-08-2021 Chronic Thyroid disorders (20 sources) Disorder of thyroid gland; Translations: [Disorder of thyroid, unspecified] 03-30-2021 Episodic Unclassified (1 source) Personal history of COVID-19; Translations: [Personal history of COVID-19] Onset: 5 Past or Other Problems Problem Classification Problem Date Documented Da te Episodic/Chronic Immunizations and screening for infectious disease (1 source) Encounter for immunization; Translations: [Encounter for immunization] Onset: 04-25-2024 Episodic Other connective tissue disease (1 source) Pain in right toe(s); Translations: [Pain in right toe(s)] Onset: 09-19-2024 Episodic Other connective tissue disease (1 source) Pain in left toe(s); Translations: [Pain in left toe(s)] Onset: 05-23-2024 Episodic Results Test Name Value Interpretation Reference Range Facility Absolute lymphocyte countOrd ered By: Arnulfo English on 12-03-2024 Lymphocytes Auto (Unsp spec) [#/Vol] 1.81 10*3/uL 0.83-4.51 [facility] Absolute neutrophil countOrd ered By: Arnulfo English on 12-03-2024 Neutrophils (Bld) [#/Vol] 2.8 10*3/uL 2.0-7.7 [facility] Anion gap in Serum or Plasma Ordered By: Arnulfo English on 12-03-2024 Anion gap [Moles/Vol] 8 mmol/L 5-15 [facility] Automated lymphocyte count a s percentage of total leukocytesOrdered By: Arnulfo English on 12-03-2024 Lymphocytes/100 WBC Auto (Unsp spec) 33.2 % 19-41 [facility] BUN/creatinine ratioOrdered By: Arnulfo English on 12-03-2024 Urea nitrogen/Creatinine [Mass ratio] 20.9 mg/mg High 10-20 [facility] Basophil percentageOrdered B y: Arnulfo English on 12-03-2024 Basophils/100 WBC (Bld) 0.9 % 0-1 [facility] Carbon dioxide, total [Moles /volume] in Central venous bloodOrdered By: Arnulfo English on 12-03-2024 CO2 [Moles/Vol] 25.9 mmol/L 21.0-32.0 [facility] Chloride assayOrdered By: Teddy English on 12-03-2024 Chloride [Moles/Vol] 105 mmol/L 98-108 [facility] Eosinophil percentageOrdered By: Arnulfo English on 12-03-2024 Eosinophils/100 WBC (Bld) 2.0 % 0-5 [facility] Erythrocyte distribution wid th ratioOrdered By: Arnulfo English on 12-03-2024 Erythrocyte distribution width (RBC) [Ratio] 16.3 % High 11.6-14.6 [facility] Erythrocyte distribution wid th standard deviationOrdered By: Arnulfo English on 12-03-2024 Erythrocyte distribution width (RBC) [Ratio] 50.4 fl High 35.1-43.9 [facility] Glomerular filtration rate ( GFR) estimation/1.73 sq m using serum, plasma, or whole bOrdered By: Arnulfo English on 12-03-2024 GFR/1.73 sq M.predicted among non-blacks MDRD (S/P/Bld) [Vol rate/Area] 79 mL/min/{1.73_m2} >60 [facility] Comment on above: mL/min/1.73m2 CKD-EP I Creatinine Equation (2020) Hematocrit Auto (Bld) [Volum e fraction]Ordered By: Arnulfo English on 12-03-2024 Hematocrit (Bld) [Volume fraction] 33.9 % Low 37-47 [facility] Hemoglobin measurementOrdere d By: Arnulfo English 12-03-2024 Hemoglobin (Bld) [Mass/Vol] 10.6 g/dL Low 12.0-15.0 [facility] Immature granulocytes/100 WB C Auto (Bld)Ordered By: Arnulfo English 12-03-2024 Immature granulocytes/100 WBC (Bld) 0.200 % 0.0-0.9 [facility] Comment on above: IG% - Immature Granu locytes (promyelocytes, myelocytes and metamyelocytes) > 1% indicates that a LEFT SHIFT is Present. MCV (mean corpuscular volume ) determinationOrdered By: Arnulfo English 12-03-2024 MCV (RBC) [Entitic vol] 85.4 fL 81-99 [facility] Mean corpuscular hemoglobin (MCH) determinationOrdered By: Arnulfo English 12-03-2024 MCH (RBC) [Entitic mass] 26.7 pg Low 27.0-32.0 [facility] Mean corpuscular hemoglobin concentration (MCHC) determinationOrdered By: Arnulfo English on 12-03-2024 MCHC (RBC) [Mass/Vol] 31.3 g/dL Low 32-36 [facility] Mean platelet volume determi nationOrdered By: Arnulfo English on 12-03-2024 Platelet mean volume (Bld) [Entitic vol] 11.1 fL 6.2-12.0 [facility] Monocyte percentageOrdered B y: Arnulfo English on 12-03-2024 Monocytes/100 WBC (Bld) 13.4 % High 0-10 [facility] Neutrophil percentageOrdered By: Arnulfo English on 12-03-2024 Neutrophils/100 WBC (Bld) 50.3 % 47-70 [facility] Nucleated red blood cell per centageOrdered By: Arnulfo English on 12-03-2024 Nucleated RBC/100 WBC (Bld) [Ratio] 0 % 0-5 [facility] Platelet countOrdered By: Teddy English on 12-03-2024 Platelets (Bld) [#/Vol] 274 10*3/uL 150-450 [facility] Potassium measurement (mass/ volume)Ordered By: Arnulfo English on 12-03-2024 Potassium (Unsp spec) [Mass/Vol] 4.1 mmol/L 3.3-5.1 [facility] RBC Auto (Bld) [#/Vol]Ordere d By: Arnulfo English on 12-03-2024 RBC (Bld) [#/Vol] 3.97 10*6/uL Low 4.2-5.4 [facility] Serum creatinine measurement (mass/volume)Ordered By: Arnulfo Chasantonelizabeth on 12-03-2024 Creatinine [Mass/Vol] 0.73 mg/dL 0.70-1.20 [facility] Serum glucose measurement (m ass/volume)Ordered By: Arnulfo Chasantonelizabeth on 12-03-2024 Glucose [Mass/Vol] 84 mg/dL 70-99 [facility] Serum or plasma calcium merlyn urement (mass/volume)Ordered By: Arnulfo English on 12-03-2024 Calcium [Mass/Vol] 9.4 mg/dL 7.6-11.0 [facility] Serum or plasma urea nitroge n measurement (mass/volume)Ordered By: Arnulfo English on 12-03-2024 Urea nitrogen [Mass/Vol] 15 mg/dL 4-19 [facility] Sodium levelOrdered By: Shereen English on 12-03-2024 Sodium [Moles/Vol] 140 mmol/L 133-145 [facility] TSH DL <= 0.005 mIU/L QnOrde red By: Arnulfo English on 12-03-2024 TSH Qn 3.870 uIU/mL 0.300-4.200 [facility] White blood cell (WBC) count Ordered By: Arnulfo English on 12-03-2024 WBC (Bld) [#/Vol] 5.5 10*3/uL 4.4-11.0 [facility] T4 freeOrdered By: Arnulfo English on 11-26-2024 Free T4 [Mass/Vol] 1.20 ng/dL 0.76-1.46 [facility] TSH DL <= 0.005 mIU/L QnOrde red By: Arnulfo English on 11-26-2024 TSH Qn 9.810 uIU/mL High 0.300-4.200 [facility] Absolute lymphocyte countOrd ered By: Arnulfo English on 11-05-2024 Lymphocytes Auto (Unsp spec) [#/Vol] 1.77 10*3/uL 0.83-4.51 [facility] Absolute neutrophil countOrd ered By: Arnulfo English on 11-05-2024 Neutrophils (Bld) [#/Vol] 3.5 10*3/uL 2.0-7.7 [facility] Automated lymphocyte count a s percentage of total leukocytesOrdered By: Arnulfo English on 11-05-2024 Lymphocytes/100 WBC Auto (Unsp spec) 27.7 % 19-41 [facility] Basophil percentageOrdered B y: Arnulfo English on 11-05-2024 Basophils/100 WBC (Bld) 0.8 % 0-1 [facility] Eosinophil percentageOrdered By: Arnulfo English on 11-05-2024 Eosinophils/100 WBC (Bld) 2.5 % 0-5 [facility] Erythrocyte distribution wid th (RBC) [Ratio]Ordered By: Arnulfo English on 11-05-2024 Erythrocyte distribution width (RBC) [Entitic vol] 48.0 fL High 35.1-43.9 [facility] Erythrocyte distribution wid th ratioOrdered By: Arnulfo English on 11-05-2024 Erythrocyte distribution width (RBC) [Ratio] 15.4 % High 11.6-14.6 [facility] Erythrocyte distribution wid th standard deviationOrdered By: saranyaludlowelie English on 11-05-2024 Erythrocyte distribution width (RBC) [Ratio] 48.0 fl High 35.1-43.9 [facility] Hematocrit Auto (Bld) [Volum e fraction]Ordered By: Arnulfo Dupontelizabeth on 11-05-2024 Hematocrit (Bld) [Volume fraction] 31.5 % Low 37-47 [facility] Hemoglobin measurementOrdere d By: Arnulfo English on 11-05-2024 Hemoglobin (Bld) [Mass/Vol] 9.8 g/dL Low 12.0-15.0 [facility] Immature granulocytes/100 WB C Auto (Bld)Ordered By: Teddysaranyamaxineelie Dohertyantonelizabeth on 11-05-2024 Immature granulocytes/100 WBC (Bld) 0.300 % 0.0-0.9 [facility] Comment on above: IG% - Immature Granu locytes (promyelocytes, myelocytes and metamyelocytes) > 1% indicates that a LEFT SHIFT is Present. Lymphocytes Auto (Unsp spec) [#/Vol]Ordered By: Teddysaranyamaxineelie Dohertyantonelizabeth on 11-05-2024 Lymphocytes (Bld) [#/Vol] 1.77 10*3/uL 0.83-4.51 [facility] Lymphocytes/100 WBC Auto (Un sp spec)Ordered By: Arnulfo Duponte on 11-05-2024 Lymphocytes/100 WBC (Bld) 27.7 % 19-41 [facility] MCV (mean corpuscular volume ) determinationOrdered By: Efsaranyaongbe Chasghe on 11-05-2024 MCV (RBC) [Entitic vol] 85.6 fL 81-99 [facility] Mean corpuscular hemoglobin (MCH) determinationOrdered By: Efsaranyaongbe Chasantone on 11-05-2024 MCH (RBC) [Entitic mass] 26.6 pg Low 27.0-32.0 [facility] Mean corpuscular hemoglobin concentration (MCHC) determinationOrdered By: Efbrian Duponte on 11-05-2024 MCHC (RBC) [Mass/Vol] 31.1 g/dL Low 32-36 [facility] Mean platelet volume determi nationOrdered By: Arnulfo Dohertyantone on 11-05-2024 Platelet mean volume (Bld) [Entitic vol] 11.2 fL 6.2-12.0 [facility] Monocyte percentageOrdered B y: Shereenongelie Dohertyantone on 11-05-2024 Monocytes/100 WBC (Bld) 13.9 % High 0-10 [facility] Neutrophil percentageOrdered By: Efsaranyaongbe Chasantone on 11-05-2024 Neutrophils/100 WBC (Bld) 54.8 % 47-70 [facility] Nucleated red blood cell per centageOrdered By: Cyrusbe Chasantone on 11-05-2024 Nucleated RBC/100 WBC (Bld) [Ratio] 0 % 0-5 [facility] Platelet countOrdered By: Ef saranyaongbe Chasantone on 11-05-2024 Platelets (Bld) [#/Vol] 266 10*3/uL 150-450 [facility] RBC Auto (Bld) [#/Vol]Ordere d By: Efsaranyaongbe Chasghe on 11-05-2024 RBC (Bld) [#/Vol] 3.68 10*6/uL Low 4.2-5.4 [facility] White blood cell (WBC) count Ordered By: Arnulfo English on 11-05-2024 WBC (Bld) [#/Vol] 6.4 10*3/uL 4.4-11.0 [facility] T4 freeOrdered By: Arnulfo English on 10-15-2024 Free T4 [Mass/Vol] 1.00 ng/dL 0.76-1.46 [facility] TSH DL <= 0.005 mIU/L QnOrde red By: Arnulfo English on 10-15-2024 Thyroid Stimulating Hormone (TSH) 7.710 uIU/mL High 0.300-4.200 [facility] TSH Qn 7.710 uIU/mL High 0.300-4.200 [facility] Absolute lymphocyte countOrd ered By: Arnulfo English on 09-03-2024 Lymphocytes Auto (Unsp spec) [#/Vol] 1.82 10*3/uL 0.83-4.51 [facility] Absolute neutrophil countOrd ered By: Arnulfo English on 09-03-2024 Neutrophils (Bld) [#/Vol] 3.2 10*3/uL 2.0-7.7 [facility] Automated lymphocyte count a s percentage of total leukocytesOrdered By: Arnulfo English on 09-03-2024 Lymphocytes/100 WBC Auto (Unsp spec) 29.8 % 19-41 [facility] Basophil percentageOrdered B y: Arnulfo English on 09-03-2024 Basophils/100 WBC (Bld) 0.7 % 0-1 [facility] Blood urea nitrogen (BUN)/cr eatinine ratioOrdered By: Arnulfo English on 09-03-2024 Urea nitrogen/Creatinine [Mass ratio] 34.1 mg/mg High 10-20 [facility] Carbon dioxide measurementOr dered By: Arnulfo English on 09-03-2024 CO2 [Moles/Vol] 26.0 mmol/L 21.0-32.0 [facility] Chloride measurementOrdered By: Arnulfo English on 09-03-2024 Chloride [Moles/Vol] 110 mmol/L High 98-107 [facility] Direct serum free thyroxine (FT4) measurementOrdered By: Arnulfo English on 09-03-2024 Free T4 [Mass/Vol] 1.30 ng/dL 0.76-1.46 [facility] Eosinophil percentageOrdered By: Shereenmaxineelie English on 09-03-2024 Eosinophils/100 WBC (Bld) 2.6 % 0-5 [facility] Erythrocyte distribution wid th (RBC) [Ratio]Ordered By: Arnulfo English on 09-03-2024 Erythrocyte distribution width (RBC) [Entitic vol] 47.6 fL High 35.1-43.9 [facility] Erythrocyte distribution wid th ratioOrdered By: Arnulfo English on 09-03-2024 Erythrocyte distribution width (RBC) [Ratio] 14.7 % High 11.6-14.6 [facility] Erythrocyte distribution wid th standard deviationOrdered By: Arnulfo English on 09-03-2024 Erythrocyte distribution width (RBC) [Ratio] 47.6 fl High 35.1-43.9 [facility] Estimated glomerular filtrat ion rate (GFR) AmericanOrdered By: Arnulfo English on 09-03-2024 Estimated GFR (MDRD) Amer 124 mL/min >60 [facility] Comment on above: GFR Calc Glomerular filtration rate ( GFR) estimationOrdered By: Arnulfo English on 09-03-2024 Estimated GFR (MDRD) Non-Af Amer 103 mL/min >60 [facility] Comment on above: Non- GFR Calc GFR/1.73 sq M.predicted among non-blacks MDRD (S/P/Bld) [Vol rate/Area] 103 mL/min/{1.73_m2} >60 [facility] Comment on above: Non- GFR Calc Glucose measurementOrdered B y: Arnulfo English on 09-03-2024 Glucose [Mass/Vol] 84 mg/dL 74-106 [facility] Hematocrit Auto (Bld) [Volum e fraction]Ordered By: Arnulfo English on 09-03-2024 Hematocrit (Bld) [Volume fraction] 29.4 % Low 37-47 [facility] Hemoglobin measurementOrdere d By: Arnulfo English on 09-03-2024 Hemoglobin (Bld) [Mass/Vol] 8.8 g/dL Low 12.0-15.0 [facility] High density lipoprotein (HD L) measurementOrdered By: Arnulfo English on 09-03-2024 Cholesterol in HDL [Mass/Vol] 74 mg/dL >40 [facility] Comment on above: The drugs N-Acetylcy steine and Metamizole may falsely depress this assay. Reference Range HDL <40 mg/dL Low HDL Cholesterol HDL >or= 60 mg/dL High HDL Cholesterol Immature granulocytes/100 WB C Auto (Bld)Ordered By: Arnulfo English on 09-03-2024 Immature granulocytes/100 WBC (Bld) 0.200 % 0.0-0.9 [facility] Comment on above: IG% - Immature Granu locytes (promyelocytes, myelocytes and metamyelocytes) > 1% indicates that a LEFT SHIFT is Present. Low density lipoprotein (LDL ) cholesterol measurementOrdered By: Arnulfo English on 09-03-2024 Cholesterol in LDL [Mass/Vol] 77 mg/dL 0-130 [facility] Lymphocytes Auto (Unsp spec) [#/Vol]Ordered By: Arnulfo English on 09-03-2024 Lymphocytes (Bld) [#/Vol] 1.82 10*3/uL 0.83-4.51 [facility] Lymphocytes/100 WBC Auto (Un sp spec)Ordered By: Arnulfo English on 09-03-2024 Lymphocytes/100 WBC (Bld) 29.8 % 19-41 [facility] MCV (mean corpuscular volume ) determinationOrdered By: Arnulfo English on 09-03-2024 MCV (RBC) [Entitic vol] 87.2 fL 81-99 [facility] Mean corpuscular hemoglobin (MCH) determinationOrdered By: Arnulfo English on 09-03-2024 MCH (RBC) [Entitic mass] 26.1 pg Low 27.0-32.0 [facility] Mean corpuscular hemoglobin concentration (MCHC) determinationOrdered By: Arnulfo English on 09-03-2024 MCHC (RBC) [Mass/Vol] 29.9 g/dL Low 32-36 [facility] Mean platelet volume determi nationOrdered By: Arnulfo English on 09-03-2024 Platelet mean volume (Bld) [Entitic vol] 11.3 fL 6.2-12.0 [facility] Monocyte percentageOrdered B y: Arnulfo English on 09-03-2024 Monocytes/100 WBC (Bld) 14.8 % High 0-10 [facility] Neutrophil percentageOrdered By: Arnulfo English on 09-03-2024 Neutrophils/100 WBC (Bld) 51.9 % 47-70 [facility] Nucleated red blood cell per centageOrdered By: Arnulfo English on 09-03-2024 Nucleated RBC/100 WBC (Bld) [Ratio] 0 % 0-5 [facility] Platelet countOrdered By: Teddy English on 09-03-2024 Platelets (Bld) [#/Vol] 262 10*3/uL 150-450 [facility] Potassium measurementOrdered By: Arnulfo English on 09-03-2024 Potassium [Moles/Vol] 4.1 mmol/L 3.5-5.1 [facility] RBC Auto (Bld) [#/Vol]Ordere d By: Arnulfo English on 09-03-2024 RBC (Bld) [#/Vol] 3.37 10*6/uL Low 4.2-5.4 [facility] Serum anion gap measurementO rdered By: Arnulfo English on 09-03-2024 Anion gap [Moles/Vol] 5 mmol/L 01-01 [facility] Serum or plasma calcium merlyn urement (mass/volume)Ordered By: Arnulfo English on 09-03-2024 Calcium [Mass/Vol] 9.1 mg/dL 8.5-10.1 [facility] Serum or plasma cholesterol measurement (mass/volume)Ordered By: Arnulfo English on 09-03-2024 Cholesterol [Mass/Vol] 162 mg/dL <[address] [facility] Comment on above: <200 mg/dL Desirable 200-240 mg/dL Borderline >240 mg/dL High Risk Serum or plasma creatinine m easurement (mass/volume)Ordered By: Arnulfo English on 09-03-2024 Creatinine [Mass/Vol] 0.59 mg/dL 0.55-1.02 [facility] Comment on above: The validity of the calculated GFR & GFRAA in patients over 70 years has not been determined. Clinical correlation is essential. Serum or plasma thyroid stim ulating hormone (TSH) measurement (units/volume)Ordered By: Arnulfo English on 09-03-2024 TSH Qn 0.255 uIU/mL Low 0.358-3.740 [facility] Serum or plasma urea nitroge n measurement (mass/volume)Ordered By: Arnulfo English on 09-03-2024 Urea nitrogen [Mass/Vol] 20 mg/dL High 7-18 [facility] Sodium levelOrdered By: Shereen English on 09-03-2024 Sodium [Moles/Vol] 141 mmol/L 136-145 [facility] TSH QnOrdered By: Arnulfo English on 09-03-2024 Thyroid Stimulating Hormone (TSH) 0.255 uIU/mL Low 0.358-3.740 [facility] Triglycerides measurementOrd ered By: Arnulfo English on 09-03-2024 Triglyceride [Mass/Vol] 56 mg/dL <199 [facility] Comment on above: The drugs N-Acetylcy steine and Metamizole may falsely depress this assay.Serum Triglycerides Reference Interval Normal <150 mg/dL Borderline high 150 - 199 mg/dL High 200 - 499 mg/dL Very High > or = 500 mg/dL Very low density lipoprotein (VLDL) cholesterol measurementOrdered By: Arnulfo English on 09-03-2024 Very low density lipoprotein (VLDL) cholesterol measurement 11 mg/dL 5-40 [facility] VLDL Cholesterol 11 mg/dL 5-40 [facility] White blood cell (WBC) count Ordered By: Arnulfo English on 09-03-2024 WBC (Bld) [#/Vol] 6.1 10*3/uL 4.4-11.0 [facility] Surgery Visit Reporton 04-22 Surgery Visit Report [facility] [address] [place] [address] OFFICE VISIT Date of Service: 04/22/24 MR#: [id number] Acct: [id number] Name: JUNIE WICK Rep #: [id number] : 1935 Provider: Dr. Indy oconnor MD Age/Sex: 88/F Location: [facility] Status: Signed Intake Vital Signs 09/19/22 10:37 04/22/24 13:34 Height 4 ft 10 in 4 ft 10 in Weight: 104 lb BMI 21.7 BP 143/73 H Blood Pressure Location Rt brachial Position Sitting Respiration 18 Intake Visit Reasons: BLOOD IN STOOL Chief Complaint: blood in stool Cut Off Worker Required: No Allergies naproxen (From Naprosyn) Allergy (Verified 04/22/24 13:16) Other Medications ???Medication ???Instructions ???Recorded ???Confirmed ???Type [id number] acid 0.4 1 tab PO DAILY vitamins 10/16/15 04/22/24 History mg-lycopene 300 mcg-lutein 250 mcg tablet (Centrum Silver) atorvastatin 40 mg tablet 40 mg PO QHS cholestrol 10/23/19 04/22/24 History aspirin 81 mg tablet 81 mg PO DAILY heart health 03/06/21 04/22/24 History acetaminophen 500 mg tablet 1,000 mg (2 x 500 mg) PO TID #0 03/24/21 04/22/24 Rx tabs bisacodyl 5 mg tablet,delayed 10 mg (2 x 5 mg) PO DAILY PRN PRN 03/24/21 04/22/24 Rx release Constipation #0 tabs nystatin 100,000 unit/gram topical 1 applic topical ,22 #0 grams 03/24/21 04/22/24 Rx powder (Nyamyc) sennosides 8.6 mg-docusate sodium 1 tab PO BID #0 tabs 03/24/21 04/22/24 Rx 50 mg tablet (Stool Softener-Stimulant Laxative) amlodipine 5 mg tablet 5 mg PO QDAY 04/22/24 04/22/24 History levothyroxine 100 mcg tablet 75 mcg PO DAILY thyroid 04/22/24 04/22/24 History (Synthroid) Have you fallen in the past year?: No PFSH Medical History Osteoporosis Hip fracture Thyroid disease High cholesterol Hearing loss, left Osteoporosis TIA (transient ischemic attack) Hemorrhagic cerebrovascular accident (CVA) Surgical History Status post open reduction and internal fixation (ORIF) of fracture H/O tubal ligation Family History Other Arthritis Social History household members: none Smoking Status: Never smoker alcohol intake: never substance use type: does not use what type of physical activity do you participate in: none HPI HPI HPI: 88-year-old female presents with her 2 sons for follow-up due to positive fecal occult 1 out of 3. Patient does report having issues with constipation more recently was initially on senna daily with described a lot of crampy abdominal pain that has been reduced states she does have bowel movements daily still close complains of some discomfort when she takes the senna twice a week. Patient denies noticing any obvious bright red blood or black stools and states they are brown. Patient's last colonoscopy was only a sigmoidoscopy [place] [address] Kitchen patient states she has never had a complete colonoscopy and only had 2 sigmoidoscopies in the office previously. Patient is unable to say why she had the sigmoidoscopy done but states that she is was told she was too old to do the full colonoscopy at that time. Patient denies any family history of colon cancer. Patient hemoglobins around 10 which for the last couple years has been 10???11 with a slight downward trend. Patient states she has been recently treated for a yeast infection in her umbilicus which is improved. ROS General General: Yes weight change; No appetite, fatigue, colon cancer or breast cancer HEENT HEENT: No difficulty swallowing, eye injury, eye surgery, swollen glands or hoarseness Endo Endocrine: Yes thyroid disease; No diabetes mellitus, thyroid cancer, Hair loss, heat intolerance or cold intolerance Skin Skin: No rash or changing moles Musc Musculoskeletal: Yes back problems and arthritis; No rheumatoid arthritis, gout or joint pain Cardio Cardiovascular: No murmur, pacemaker, heart disease, atrial fibrillation, high blood pressure, heart attack, heart stent, palpitations, shortness of breat with exertion or chest pain Psych Psychiatric: No depression, anxiety or hearing voices Resp Respiratory: No shortness of breath, No sleep apnea, No cough, No COPD, No asthma, No emphysema and No wheezing Gastro Gastrointestinal: Yes abdominal pain, No nausea or vomiting, No diarrhea, Yes constipation, Yes blood in stool, No acid reflux, No hemorrhoids, No ulcers, No gallbladder problem and No black,tarry stools [place] Hematologic: No blood thinners, No blood disorders, No bleeding, No anemia and No blood clots Neuro Neurologic: No numbness and No tingling Exam Const General: (more content not included)... Normal [facility] Serum or plasma thyroid stim ulating hormone (TSH) measurement (units/volume)Ordered By: Arnulfo English on 11-26-2023 TSH Qn 1.32 uIU/mL 0.358-3.74 [facility] Thin prep Papanicolaou smear with manual screeningOrdered By: Arnulfo English on 11-26-2023 Thin prep Papanicolaou smear with manual screening 1.27 ng/dL 0.76-1.46 [facility] Bilirubin Test strip Ql (U)O rdered By: Arnulfo English on 11-24-2023 Bilirubin Ql (U) Negative Negative [facility] Culture, urineOrdered By: Teddy English on 11-24-2023 Bacteria identified Cx Nom (U) Escherichia coli [facility] Ketones Test strip Ql (U)Ord ered By: Arnulfo English on 11-24-2023 Ketones Ql (U) Negative Negative [facility] Nitrite Test strip Ql (U)Ord ered By: Arnulfo English on 11-24-2023 Nitrite Ql (U) Positive Negative [facility] Protein Test strip Ql (U)Ord ered By: Arnulfo English on 11-24-2023 Protein Ql (U) Negative Negative [facility] Urine blood detectionOrdered By: Arnulfo English on 11-24-2023 RBC Ql (U) 25 /ul Negative [facility] Urine clarityOrdered By: Kota English on 11-24-2023 Clarity (U) Clear Clear [facility] Urine color determinationOrd ered By: Arnulfo English on 11-24-2023 Color (U) Straw Yellow [facility] Urine glucose detectionOrder ed By: Arnulfo English on 11-24-2023 Glucose Ql (U) Normal mg/dl Normal [facility] Urine leukocyte esterase det ection by dipstickOrdered By: Arnulfo English on 11-24-2023 Leukocyte esterase Test strip Ql (U) 500 /ul Negative [facility] Urine pHOrdered By: Aurelia English on 11-24-2023 pH (U) 7.0 [pH] 5.0 - 8.0 [facility] Urine specific gravity measu rementOrdered By: Arnulfo English on 11-24-2023 Specific gravity (U) [Rel density] 1.010 1.002-1.030 [facility] Urine urobilinogen measureme ntOrdered By: rAnulfo English on 11-24-2023 Urobilinogen Ql (U) Normal mg/dl Normal [facility] Absolute lymphocyte countOrd ered By: Arnulfo English on 10-10-2023 Lymphocytes Auto (Unsp spec) [#/Vol] 1.87 10*3/uL 0.83-4.51 [facility] Automated lymphocyte count a s percentage of total leukocytesOrdered By: Arnulfo English on 10-10-2023 Lymphocytes/100 WBC Auto (Unsp spec) 29.7 % 19-41 [facility] Basophil percentageOrdered B y: Arnulfo English on 10-10-2023 Basophils/100 WBC (Bld) 0.6 % 0-1 [facility] Chloride [Moles/Vol] 109 mmol/L 98-107 [facility] Eosinophils/100 WBC (Bld) 2.7 % 0-5 [facility] Glucose [Mass/Vol] 88 mg/dL 74-106 [facility] Hemoglobin (Bld) [Mass/Vol] 10.3 g/dL 12.0-15.0 [facility] Monocytes/100 WBC (Bld) 12.7 % 0-10 [facility] Neutrophils (Bld) [#/Vol] 3.4 10*3/uL 2.0-7.7 [facility] Neutrophils/100 WBC (Bld) 54.1 % 47-70 [facility] Potassium [Moles/Vol] 4.1 mmol/L 3.5-5.1 [facility] Sodium [Moles/Vol] 138 mmol/L 136-145 [facility] WBC (Bld) [#/Vol] 6.3 10*3/uL 4.4-11.0 [facility] Determination of erythrocyte mean corpuscular volume (MCV)Ordered By: Arnulfo English on 10-10-2023 MCV (RBC) [Entitic vol] 90.3 fL 81-99 [facility] Erythrocyte distribution wid th ratioOrdered By: Shereenludlowelie English on 10-10-2023 Erythrocyte distribution width (RBC) [Ratio] 14.4 % 11.6-14.6 [facility] Erythrocyte distribution wid th standard deviationOrdered By: Arnulfo English on 10-10-2023 Erythrocyte distribution width (RBC) [Entitic vol] 47.2 fL 35.1-43.9 [facility] Hematocrit Auto (Bld) [Volum e fraction]Ordered By: Arnulfo English on 10-10-2023 Hematocrit (Bld) [Volume fraction] 33.4 % 37-47 [facility] Immature granulocytes/100 WB C Auto (Bld)Ordered By: Arnulfo English on 10-10-2023 Immature granulocytes/100 WBC (Bld) 0.200 % 0.0-0.9 [facility] Comment on above: IG% - Immature Granu locytes (promyelocytes, myelocytes and metamyelocytes) > 1% indicates that a LEFT SHIFT is Present. Laboratory - Chemistry and C hemistry - challengeOrdered By: Arnulfo English on 10-10-2023 CO2 [Moles/Vol] 25.0 mmol/L 21.0-32.0 [facility] Urea nitrogen/Creatinine [Mass ratio] 38.2 mg/mg 10-20 [facility] Laboratory - Hematology and Cell countsOrdered By: Arnulfo English on 10-10-2023 MCH (RBC) [Entitic mass] 27.8 pg 27.0-32.0 [facility] MCHC (RBC) [Mass/Vol] 30.8 g/dL 32-36 [facility] Nucleated RBC/100 WBC (Bld) [Ratio] 0 % 0-5 [facility] Platelet mean volume (Bld) [Entitic vol] 11.5 fL 6.2-12.0 [facility] Platelets (Bld) [#/Vol] 245 10*3/uL 150-450 [facility] No Panel InformationOrdered By: Arnulfo English on 10-10-2023 Estimated GFR (MDRD) Amer 121 mL/min >60 [facility] Comment on above: GFR Calc Estimated GFR (MDRD) Non-Af Amer 100 mL/min >60 [facility] Comment on above: Non- GFR Calc RBC Auto (Bld) [#/Vol]Ordere d By: Arnulfo English on 10-10-2023 RBC (Bld) [#/Vol] 3.70 10*6/uL 4.2-5.4 [facility] Serum or plasma calcium merlyn urement (mass/volume)Ordered By: Arnulfo English on 10-10-2023 Calcium [Mass/Vol] 9.3 mg/dL 8.5-10.1 [facility] Serum or plasma creatinine m easurement (mass/volume)Ordered By: Arnulfo English on 10-10-2023 Creatinine [Mass/Vol] 0.60 mg/dL 0.55-1.02 [facility] Comment on above: The validity of the calculated GFR & GFRAA in patients over 70 years has not been determined. Clinical correlation is essential. Serum or plasma urea nitroge n measurement (mass/volume)Ordered By: Arnulfo English on 10-10-2023 Urea nitrogen [Mass/Vol] 23 mg/dL 7-18 [facility] Thin prep Papanicolaou smear with manual screeningOrdered By: Arnulfo English on 10-10-2023 Thin prep Papanicolaou smear with manual screening 4 5-15 [facility] Serum or plasma thyroid stim ulating hormone (TSH) measurement (units/volume)Ordered By: Arnulfo English on 10-01-2023 TSH Qn 1.40 uIU/mL 0.358-3.74 [facility] Thin prep Papanicolaou smear with manual screeningOrdered By: Arnulfo English on 10-01-2023 Thin prep Papanicolaou smear with manual screening 1.42 ng/dL 0.76-1.46 [facility] Basophil percentageOrdered B y: Arnulfo English on 09-05-2023 Cholesterol [Mass/Vol] 116 mg/dL <[address] [facility] Comment on above: <200 mg/dL Desirable 200-240 mg/dL Borderline >240 mg/dL High Risk Triglyceride [Mass/Vol] 85 mg/dL <199 [facility] Comment on above: The drugs N-Acetylcy steine and Metamizole may falsely depress this assay.Serum Triglycerides Reference Interval Normal <150 mg/dL Borderline high 150 - 199 mg/dL High 200 - 499 mg/dL Very High > or = 500 mg/dL High density lipoprotein (HD L) measurementOrdered By: Arnulfo English on 09-05-2023 Cholesterol in HDL (Body fld) [Mass/Vol] 58 mg/dL >40 [facility] Comment on above: The drugs N-Acetylcy steine and Metamizole may falsely depress this assay. Reference Range HDL <40 mg/dL Low HDL Cholesterol HDL >or= 60 mg/dL High HDL Cholesterol Low density lipoprotein (LDL ) cholesterol measurementOrdered By: Arnulfo English on 09-05-2023 Cholesterol in LDL (Body fld) [Moles/Vol] 41 mg/dL 0-130 [facility] Very low density lipoprotein (VLDL) cholesterol measurementOrdered By: Arnulfo English on 09-05-2023 Cholesterol in VLDL Calc [Moles/Vol] 17 mg/dL 5-40 [facility] Absolute lymphocyte countOrd ered By: Arnulfo English on 07-04-2023 Lymphocytes Auto (Unsp spec) [#/Vol] 2.09 10*3/uL 0.83-4.51 [facility] Basophil percentageOrdered B y: Arnulfo English on 07-04-2023 Basophils/100 WBC (Bld) 0.6 % 0-1 [facility] Chloride [Moles/Vol] 107 mmol/L 98-107 [facility] Eosinophils/100 WBC (Bld) 4.6 % 0-5 [facility] Glucose [Mass/Vol] 73 mg/dL 74-106 [facility] Neutrophils (Bld) [#/Vol] 3.0 10*3/uL 2.0-7.7 [facility] Neutrophils/100 WBC (Bld) 47.2 % 47-70 [facility] Potassium [Moles/Vol] 4.1 mmol/L 3.5-5.1 [facility] Sodium [Moles/Vol] 141 mmol/L 136-145 [facility] WBC (Bld) [#/Vol] 6.4 10*3/uL 4.4-11.0 [facility] Blood erythrocytes count (nu mber/volume)Ordered By: Arnulfo English on 07-04-2023 RBC (Bld) [#/Vol] 3.83 10*6/uL 4.2-5.4 [facility] Blood hemoglobin measurement (mass/volume)Ordered By: Arnulfo English on 07-04-2023 Hemoglobin (Bld) [Mass/Vol] 10.7 g/dL 12.0-15.0 [facility] Blood lymphocytes/100 leukoc ytesOrdered By: Arnulfo English on 07-04-2023 Lymphocytes/100 WBC (Bld) 32.8 % 19-41 [facility] Blood monocytes/100 leukocyt esOrdered By: Arnulfo English on 07-04-2023 Monocytes/100 WBC (Bld) 14.6 % 0-10 [facility] Blood platelet mean volumeOr dered By: Arnulfo English on 07-04-2023 Platelet mean volume (Bld) [Entitic vol] 11.9 fL 6.2-12.0 [facility] Determination of erythrocyte mean corpuscular volume (MCV)Ordered By: Arnulfo English on 07-04-2023 MCV (RBC) [Entitic vol] 93.2 fL 81-99 [facility] Hematocrit Auto (Bld) [Volum e fraction]Ordered By: Arnulfo English on 07-04-2023 Hematocrit (Bld) [Volume fraction] 35.7 % 37-47 [facility] Laboratory - Chemistry and C hemistry - challengeOrdered By: Arnulfo English on 07-04-2023 CO2 [Moles/Vol] 27.0 mmol/L 21.0-32.0 [facility] Urea nitrogen/Creatinine [Mass ratio] 30.8 mg/mg 10-20 [facility] Laboratory - Hematology and Cell countsOrdered By: Arnulfo English on 07-04-2023 Erythrocyte distribution width (RBC) [Entitic vol] 46.9 fL 35.1-43.9 [facility] Erythrocyte distribution width (RBC) [Ratio] 13.8 % 11.6-14.6 [facility] Immature granulocytes/100 WBC (Bld) 0.200 % 0.0-0.9 [facility] Comment on above: IG% - Immature Granu locytes (promyelocytes, myelocytes and metamyelocytes) > 1% indicates that a LEFT SHIFT is Present. MCH (RBC) [Entitic mass] 27.9 pg 27.0-32.0 [facility] Nucleated RBC/100 WBC (Bld) [Ratio] 0 % 0-5 [facility] MCHC Auto (RBC) [Mass/Vol]Or dered By: Arnulfo English on 07-04-2023 MCHC (RBC) [Mass/Vol] 30.0 g/dL 32-36 [facility] No Panel InformationOrdered By: Arnulfo English on 07-04-2023 Estimated GFR (MDRD) Amer 144 mL/min >60 [facility] Comment on above: GFR Calc Estimated GFR (MDRD) Non-Af Amer 119 mL/min >60 [facility] Comment on above: Non- GFR Calc Platelets bldOrdered By: Kota English on 07-04-2023 Platelets (Bld) [#/Vol] 220 10*3/uL 150-450 [facility] Serum or plasma calcium merlyn urement (mass/volume)Ordered By: Arnulfo English on 07-04-2023 Calcium [Mass/Vol] 8.6 mg/dL 8.5-10.1 [facility] Serum or plasma creatinine m easurement (mass/volume)Ordered By: Arnulfo English on 07-04-2023 Creatinine [Mass/Vol] 0.52 mg/dL 0.55-1.02 [facility] Comment on above: The validity of the calculated GFR & GFRAA in patients over 70 years has not been determined. Clinical correlation is essential. Serum or plasma urea nitroge n measurement (mass/volume)Ordered By: Arnulfo English on 07-04-2023 Urea nitrogen [Mass/Vol] 16 mg/dL 7-18 [facility] Thin prep Papanicolaou smear with manual screeningOrdered By: Arnulfo English on 07-04-2023 Thin prep Papanicolaou smear with manual screening 7 -15 [facility] Basophil percentageOrdered B y: Arnulfo English on 05-23-2023 Bilirubin [Mass/Vol] 0.30 mg/dL 0.20-1.00 [facility] Comment on above: For patients on eltr ombopag therapy, use of [employer]ension [facility] TBIL is not recommended. Protein [Mass/Vol] 7.0 g/dL 6.4-8.2 [facility] Direct bilirubinOrdered By: Arnulfo English on 05-23-2023 Bilirubin.direct [Mass/Vol] 0.12 mg/dL 0.00-0.30 [facility] Laboratory - Chemistry and C hemistry - challengeOrdered By: Arnulfo English on 05-23-2023 ALP [Catalytic activity/Vol] 95 U/L 45-117 [facility] ALT [Catalytic activity/Vol] 31 U/L 13-56 [facility] Free T4 [Mass/Vol] 1.09 ng/dL 0.76-1.46 [facility] Globulin (S) [Mass/Vol] 3.6 g/dL 2.2-4.2 [facility] No Panel InformationOrdered By: Arnulfo English on 05-23-2023 Thyroid Stimulating Hormone (TSH) 8.94 uIU/mL 0.358-3.74 [facility] Serum or plasma albumin merlyn urement (mass/volume)Ordered By: Arnulfo English on 05-23-2023 Albumin [Mass/Vol] 3.4 g/dL 3.2-5.0 [facility] Thin prep Papanicolaou smear with manual screeningOrdered By: Arnulfo English on 05-23-2023 Thin prep Papanicolaou smear with manual screening 38 U/L 15-37 [facility] Basophil percentageOrdered B y: Arnulfo English on 02-21-2023 Bilirubin [Mass/Vol] 0.30 mg/dL 0.20-1.00 [facility] Comment on above: For patients on eltr ombopag therapy, use of [employer] [facility] TBIL is not recommended. Protein [Mass/Vol] 6.8 g/dL 6.4-8.2 [facility] Direct bilirubinOrdered By: Arnulfo English on 02-21-2023 Bilirubin.direct [Mass/Vol] 0.09 mg/dL 0.00-0.30 [facility] Laboratory - Chemistry and C hemistry - challengeOrdered By: Arnulfo English on 02-21-2023 ALP [Catalytic activity/Vol] 105 U/L 45-117 [facility] ALT [Catalytic activity/Vol] 26 U/L 13-56 [facility] Free T4 [Mass/Vol] 0.94 ng/dL 0.76-1.46 [facility] Globulin (S) [Mass/Vol] 3.7 g/dL 2.2-4.2 [facility] No Panel InformationOrdered By: Arnulfo English on 02-21-2023 Thyroid Stimulating Hormone (TSH) 11.20 uIU/mL 0.358-3.74 [facility] Serum or plasma albumin merlyn urement (mass/volume)Ordered By: Arnulfo English on 02-21-2023 Albumin [Mass/Vol] 3.1 g/dL 3.2-5.0 [facility] Thin prep Papanicolaou smear with manual screeningOrdered By: Arnulfo English on 02-21-2023 Thin prep Papanicolaou smear with manual screening 34 U/L 15-37 [facility] Basophil percentageOrdered B y: Arnulfo English on 01-09-2023 Chloride [Moles/Vol] 109 mmol/L 98-107 [facility] Glucose [Mass/Vol] 90 mg/dL 74-106 [facility] Potassium [Moles/Vol] 4.0 mmol/L 3.5-5.1 [facility] Sodium [Moles/Vol] 141 mmol/L 136-145 [facility] WBC (Bld) [#/Vol] 5.1 10*3/uL 4.4-11.0 [facility] Blood erythrocytes count (nu mber/volume)Ordered By: Arnulfo English on 01-09-2023 RBC (Bld) [#/Vol] 3.93 10*6/uL 4.2-5.4 [facility] Blood hemoglobin measurement (mass/volume)Ordered By: Arnulfo English on 01-09-2023 Hemoglobin (Bld) [Mass/Vol] 11.0 g/dL 12.0-15.0 [facility] Blood platelet mean volumeOr dered By: Arnulfo English on 01-09-2023 Platelet mean volume (Bld) [Entitic vol] 11.7 fL 6.2-12.0 [facility] Determination of erythrocyte mean corpuscular volume (MCV)Ordered By: Arnulfo English on 01-09-2023 MCV (RBC) [Entitic vol] 90.1 fL 81-99 [facility] Hematocrit Auto (Bld) [Volum e fraction]Ordered By: Arnulfo English on 01-09-2023 Hematocrit (Bld) [Volume fraction] 35.4 % 37-47 [facility] Laboratory - Chemistry and C hemistry - challengeOrdered By: Arnulfo English on 01-09-2023 CO2 [Moles/Vol] 27.0 mmol/L 21.0-32.0 [facility] Free T4 [Mass/Vol] 1.52 ng/dL 0.76-1.46 [facility] Urea nitrogen/Creatinine [Mass ratio] 31.9 mg/mg 10-20 [facility] Laboratory - Hematology and Cell countsOrdered By: Arnulfo English on 01-09-2023 Erythrocyte distribution width (RBC) [Entitic vol] 45.4 fL 35.1-43.9 [facility] Erythrocyte distribution width (RBC) [Ratio] 13.8 % 11.6-14.6 [facility] MCH (RBC) [Entitic mass] 28.0 pg 27.0-32.0 [facility] MCHC Auto (RBC) [Mass/Vol]Or dered By: Arnulfo English on 01-09-2023 MCHC (RBC) [Mass/Vol] 31.1 g/dL 32-36 [facility] No Panel InformationOrdered By: Arnulfo English on 01-09-2023 Estimated GFR (MDRD) Amer 149 mL/min >60 [facility] Comment on above: GFR Calc Estimated GFR (MDRD) Non-Af Amer 123 mL/min >60 [facility] Comment on above: Non- GFR Calc Thyroid Stimulating Hormone (TSH) 0.20 uIU/mL 0.358-3.74 [facility] Platelets bldOrdered By: Kota English on 01-09-2023 Platelets (Bld) [#/Vol] 215 10*3/uL 150-450 [facility] Serum or plasma calcium merlyn urement (mass/volume)Ordered By: Arnulfo English on 01-09-2023 Calcium [Mass/Vol] 8.8 mg/dL 8.5-10.1 [facility] Serum or plasma creatinine m easurement (mass/volume)Ordered By: Arnulfo English on 01-09-2023 Creatinine [Mass/Vol] 0.50 mg/dL 0.55-1.02 [facility] Comment on above: The validity of the calculated GFR & GFRAA in patients over 70 years has not been determined. Clinical correlation is essential. Serum or plasma urea nitroge n measurement (mass/volume)Ordered By: Arnulfo English on 01-09-2023 Urea nitrogen [Mass/Vol] 16 mg/dL 7-18 [facility] Thin prep Papanicolaou smear with manual screeningOrdered By: Arnulfo English on 01-09-2023 Thin prep Papanicolaou smear with manual screening 5 5-15 [facility] Basophil percentageOrdered B y: Arnulfo English on 12-12-2022 Chloride [Moles/Vol] 107 mmol/L 98-107 [facility] Glucose [Mass/Vol] 88 mg/dL 74-106 [facility] Potassium [Moles/Vol] 4.0 mmol/L 3.5-5.1 [facility] Sodium [Moles/Vol] 138 mmol/L 136-145 [facility] WBC (Bld) [#/Vol] 5.3 10*3/uL 4.4-11.0 [facility] Blood erythrocytes count (nu mber/volume)Ordered By: Arnulfo English on 12-12-2022 RBC (Bld) [#/Vol] 4.12 10*6/uL 4.2-5.4 [facility] Blood hemoglobin measurement (mass/volume)Ordered By: Arnulfo English on 12-12-2022 Hemoglobin (Bld) [Mass/Vol] 11.2 g/dL 12.0-15.0 [facility] Blood platelet mean volumeOr dered By: Arnulfo English on 12-12-2022 Platelet mean volume (Bld) [Entitic vol] 11.3 fL 6.2-12.0 [facility] Determination of erythrocyte mean corpuscular volume (MCV)Ordered By: Arnulfo English on 12-12-2022 MCV (RBC) [Entitic vol] 90.3 fL 81-99 [facility] Hematocrit Auto (Bld) [Volum e fraction]Ordered By: Arnulfo English on 12-12-2022 Hematocrit (Bld) [Volume fraction] 37.2 % 37-47 [facility] Laboratory - Chemistry and C hemistry - challengeOrdered By: Arnulfo English on 12-12-2022 CO2 [Moles/Vol] 28.0 mmol/L 21.0-32.0 [facility] Urea nitrogen/Creatinine [Mass ratio] 25.6 mg/mg 10-20 [facility] Laboratory - Hematology and Cell countsOrdered By: Arnulfo English on 12-12-2022 Erythrocyte distribution width (RBC) [Entitic vol] 45.2 fL 35.1-43.9 [facility] Erythrocyte distribution width (RBC) [Ratio] 13.6 % 11.6-14.6 [facility] MCH (RBC) [Entitic mass] 27.2 pg 27.0-32.0 [facility] MCHC Auto (RBC) [Mass/Vol]Or dered By: Arnulfo English on 12-12-2022 MCHC (RBC) [Mass/Vol] 30.1 g/dL 32-36 [facility] No Panel InformationOrdered By: Arnulfo English on 12-12-2022 Estimated GFR (MDRD) Amer 147 mL/min >60 [facility] Comment on above: GFR Calc Estimated GFR (MDRD) Non-Af Amer 122 mL/min >60 [facility] Comment on above: Non- GFR Calc Platelets bldOrdered By: Kota English on 12-12-2022 Platelets (Bld) [#/Vol] 226 10*3/uL 150-450 [facility] Serum or plasma calcium merlyn urement (mass/volume)Ordered By: Arnulfo English on 12-12-2022 Calcium [Mass/Vol] 9.1 mg/dL 8.5-10.1 [facility] Serum or plasma creatinine m easurement (mass/volume)Ordered By: Arnulfo English on 12-12-2022 Creatinine [Mass/Vol] 0.51 mg/dL 0.55-1.02 [facility] Comment on above: The validity of the calculated GFR & GFRAA in patients over 70 years has not been determined. Clinical correlation is essential. Serum or plasma urea nitroge n measurement (mass/volume)Ordered By: Arnulfo English on 12-12-2022 Urea nitrogen [Mass/Vol] 13 mg/dL 7-18 [facility] Thin prep Papanicolaou smear with manual screeningOrdered By: Arnulfo English on 12-12-2022 Thin prep Papanicolaou smear with manual screening 3 5-15 [facility] Basophil percentageOrdered B y: Arnulfo English on 11-14-2022 Chloride [Moles/Vol] 108 mmol/L 98-107 [facility] Glucose [Mass/Vol] 91 mg/dL 74-106 [facility] Potassium [Moles/Vol] 4.0 mmol/L 3.5-5.1 [facility] Sodium [Moles/Vol] 140 mmol/L 136-145 [facility] WBC (Bld) [#/Vol] 6.0 10*3/uL 4.4-11.0 [facility] Blood erythrocytes count (nu mber/volume)Ordered By: Arnulfo English on 11-14-2022 RBC (Bld) [#/Vol] 4.05 10*6/uL 4.2-5.4 [facility] Blood hemoglobin measurement (mass/volume)Ordered By: Arnulfo English on 11-14-2022 Hemoglobin (Bld) [Mass/Vol] 11.2 g/dL 12.0-15.0 [facility] Blood platelet mean volumeOr dered By: Arnulfo English on 11-14-2022 Platelet mean volume (Bld) [Entitic vol] 11.8 fL 6.2-12.0 [facility] Determination of erythrocyte mean corpuscular volume (MCV)Ordered By: Arnulfo English on 11-14-2022 MCV (RBC) [Entitic vol] 90.9 fL 81-99 [facility] Hematocrit Auto (Bld) [Volum e fraction]Ordered By: Arnulfo English on 11-14-2022 Hematocrit (Bld) [Volume fraction] 36.8 % 37-47 [facility] Laboratory - Chemistry and C hemistry - challengeOrdered By: Arnulfo English on 11-14-2022 CO2 [Moles/Vol] 29.0 mmol/L 21.0-32.0 [facility] Urea nitrogen/Creatinine [Mass ratio] 33.0 mg/mg 10-20 [facility] Laboratory - Hematology and Cell countsOrdered By: Arnulfo English on 11-14-2022 Erythrocyte distribution width (RBC) [Entitic vol] 46.6 fL 35.1-43.9 [facility] Erythrocyte distribution width (RBC) [Ratio] 13.9 % 11.6-14.6 [facility] MCH (RBC) [Entitic mass] 27.7 pg 27.0-32.0 [facility] MCHC Auto (RBC) [Mass/Vol]Or dered By: Arnulfo English on 11-14-2022 MCHC (RBC) [Mass/Vol] 30.4 g/dL 32-36 [facility] No Panel InformationOrdered By: Arnulfo English on 11-14-2022 Estimated GFR (MDRD) Amer 128 mL/min >60 [facility] Comment on above: GFR Calc Estimated GFR (MDRD) Non-Af Amer 105 mL/min >60 [facility] Comment on above: Non- GFR Calc Platelets bldOrdered By: Kota English on 11-14-2022 Platelets (Bld) [#/Vol] 230 10*3/uL 150-450 [facility] Serum or plasma calcium merlyn urement (mass/volume)Ordered By: Arnulfo English on 11-14-2022 Calcium [Mass/Vol] 9.2 mg/dL 8.5-10.1 [facility] Serum or plasma creatinine m easurement (mass/volume)Ordered By: Arnulfo English on 11-14-2022 Creatinine [Mass/Vol] 0.58 mg/dL 0.55-1.02 [facility] Comment on above: The validity of the calculated GFR & GFRAA in patients over 70 years has not been determined. Clinical correlation is essential. Serum or plasma urea nitroge n measurement (mass/volume)Ordered By: Arnulfo English on 11-14-2022 Urea nitrogen [Mass/Vol] 19 mg/dL 7-18 [facility] Thin prep Papanicolaou smear with manual screeningOrdered By: Arnulfo English on 11-14-2022 Thin prep Papanicolaou smear with manual screening 3 5-15 [facility] Basophil percentageOrdered B y: Arnulfo English on 10-17-2022 Chloride [Moles/Vol] 105 mmol/L 98-107 [facility] Glucose [Mass/Vol] 72 mg/dL 74-106 [facility] Potassium [Moles/Vol] 4.1 mmol/L 3.5-5.1 [facility] Sodium [Moles/Vol] 139 mmol/L 136-145 [facility] WBC (Bld) [#/Vol] 5.3 10*3/uL 4.4-11.0 [facility] Blood erythrocytes count (nu mber/volume)Ordered By: Arnulfo English on 10-17-2022 RBC (Bld) [#/Vol] 4.19 10*6/uL 4.2-5.4 [facility] Blood hemoglobin measurement (mass/volume)Ordered By: Arnulfo English on 10-17-2022 Hemoglobin (Bld) [Mass/Vol] 11.7 g/dL 12.0-15.0 [facility] Blood platelet mean volumeOr dered By: Arnulfo English on 10-17-2022 Platelet mean volume (Bld) [Entitic vol] 11.9 fL 6.2-12.0 [facility] Determination of erythrocyte mean corpuscular volume (MCV)Ordered By: Arnulfo English on 10-17-2022 MCV (RBC) [Entitic vol] 90.9 fL 81-99 [facility] Hematocrit Auto (Bld) [Volum e fraction]Ordered By: Arnuflo English on 10-17-2022 Hematocrit (Bld) [Volume fraction] 38.1 % 37-47 [facility] Laboratory - Chemistry and C hemistry - challengeOrdered By: Arnulfo English on 10-17-2022 CO2 [Moles/Vol] 27.0 mmol/L 21.0-32.0 [facility] Urea nitrogen/Creatinine [Mass ratio] 25.3 mg/mg 10-20 [facility] Laboratory - Hematology and Cell countsOrdered By: Arnulfo English on 10-17-2022 Erythrocyte distribution width (RBC) [Entitic vol] 46.3 fL 35.1-43.9 [facility] Erythrocyte distribution width (RBC) [Ratio] 13.9 % 11.6-14.6 [facility] MCH (RBC) [Entitic mass] 27.9 pg 27.0-32.0 [facility] Auto (RBC) [Mass/Vol]Or dered By: Arnulfo English on 10-17-2022 MCHC (RBC) [Mass/Vol] 30.7 g/dL 32-36 [facility] No Panel InformationOrdered By: Arnulfo English on 10-17-2022 Estimated GFR (MDRD) Amer 114 mL/min >60 [facility] Comment on above: GFR Calc Estimated GFR (MDRD) Non-Af Amer 95 mL/min >60 [facility] Comment on above: Non- GFR Calc Platelets bldOrdered By: Kota English on 10-17-2022 Platelets (Bld) [#/Vol] 247 10*3/uL 150-450 [facility] Serum or plasma calcium merlyn urement (mass/volume)Ordered By: Arnulfo English on 10-17-2022 Calcium [Mass/Vol] 9.5 mg/dL 8.5-10.1 [facility] Serum or plasma creatinine m easurement (mass/volume)Ordered By: Arnulfo English on 10-17-2022 Creatinine [Mass/Vol] 0.63 mg/dL 0.55-1.02 [facility] Comment on above: The validity of the calculated GFR & GFRAA in patients over 70 years has not been determined. Clinical correlation is essential. Serum or plasma urea nitroge n measurement (mass/volume)Ordered By: Arnulfo English on 10-17-2022 Urea nitrogen [Mass/Vol] 16 mg/dL 7-18 [facility] Thin prep Papanicolaou smear with manual screeningOrdered By: Arnulfo English on 10-17-2022 Thin prep Papanicolaou smear with manual screening 7 5-15 [facility] Basophil percentageOrdered B y: Billy Loja on 09-12-2022 Chloride [Moles/Vol] 106 mmol/L 98-107 [facility] Cholesterol [Mass/Vol] 112 mg/dL <[address] [facility] Comment on above: <200 mg/dL Desirable 200-240 mg/dL Borderline >240 mg/dL High Risk Glucose [Mass/Vol] 85 mg/dL 74-106 [facility] Potassium [Moles/Vol] 3.9 mmol/L 3.5-5.1 [facility] Sodium [Moles/Vol] 139 mmol/L 136-145 [facility] Triglyceride [Mass/Vol] 56 mg/dL <199 [facility] Comment on above: The drugs N-Acetylcy steine and Metamizole may falsely depress this assay.Serum Triglycerides Reference Interval Normal <150 mg/dL Borderline high 150 - 199 mg/dL High 200 - 499 mg/dL Very High > or = 500 mg/dL WBC (Bld) [#/Vol] 5.4 10*3/uL 4.4-11.0 [facility] Blood erythrocytes count (nu mber/volume)Ordered By: Billy Loja on 09-12-2022 RBC (Bld) [#/Vol] 3.89 10*6/uL 4.2-5.4 [facility] Blood hemoglobin measurement (mass/volume)Ordered By: Billy Loja on 09-12-2022 Hemoglobin (Bld) [Mass/Vol] 10.9 g/dL 12.0-15.0 [facility] Blood platelet mean volumeOr dered By: Billy Loja on 09-12-2022 Platelet mean volume (Bld) [Entitic vol] 11.7 fL 6.2-12.0 [facility] Determination of erythrocyte mean corpuscular volume (MCV)Ordered By: Billy Loja on 09-12-2022 MCV (RBC) [Entitic vol] 90.0 fL 81-99 [facility] Hematocrit Auto (Bld) [Volum e fraction]Ordered By: Billy Loja on 09-12-2022 Hematocrit (Bld) [Volume fraction] 35.0 % 37-47 [facility] Laboratory - Chemistry and C hemistry - challengeOrdered By: Billy Loja on 09-12-2022 CO2 [Moles/Vol] 26.0 mmol/L 21.0-32.0 [facility] Urea nitrogen/Creatinine [Mass ratio] 26.4 mg/mg 10-20 [facility] Laboratory - Hematology and Cell countsOrdered By: Billy Loja on 09-12-2022 Erythrocyte distribution width (RBC) [Entitic vol] 46.3 fL 35.1-43.9 [facility] Erythrocyte distribution width (RBC) [Ratio] 14.0 % 11.6-14.6 [facility] MCH (RBC) [Entitic mass] 28.0 pg 27.0-32.0 [facility] MCHC Auto (RBC) [Mass/Vol]Or dered By: Billy Loja on 09-12-2022 MCHC (RBC) [Mass/Vol] 31.1 g/dL 32-36 [facility] No Panel InformationOrdered By: Billy Loja on 09-12-2022 Estimated GFR (MDRD) Amer 140 mL/min >60 [facility] Comment on above: GFR Calc Estimated GFR (MDRD) Non-Af Amer 116 mL/min >60 [facility] Comment on above: Non- GFR Calc Platelets bldOrdered By: Primo Loja on 09-12-2022 Platelets (Bld) [#/Vol] 224 10*3/uL 150-450 [facility] Serum or plasma calcium merlyn urement (mass/volume)Ordered By: Billy Loja on 09-12-2022 Calcium [Mass/Vol] 8.9 mg/dL 8.5-10.1 [facility] Serum or plasma cholesterol in HDL measurement (mass/volume)Ordered By: Billy Loja on 09-12-2022 Cholesterol in HDL [Mass/Vol] 66 mg/dL >40 [facility] Comment on above: The drugs N-Acetylcy steine and Metamizole may falsely depress this assay. Reference Range HDL <40 mg/dL Low HDL Cholesterol HDL >or= 60 mg/dL High HDL Cholesterol Serum or plasma cholesterol in VLDL measurement (mass/volume)Ordered By: Billy Loja on 09-12-2022 Cholesterol in VLDL [Mass/Vol] 11 mg/dL 5-40 [facility] Serum or plasma creatinine m easurement (mass/volume)Ordered By: Billy Loja on 09-12-2022 Creatinine [Mass/Vol] 0.53 mg/dL 0.55-1.02 [facility] Comment on above: The validity of the calculated GFR & GFRAA in patients over 70 years has not been determined. Clinical correlation is essential. Serum or plasma low density lipoprotein (LDL) cholesterol measurement (mass/volume)Ordered By: Billy Loja on 09-12-2022 Cholesterol in LDL [Mass/Vol] 35 mg/dL 0-130 [facility] Serum or plasma urea nitroge n measurement (mass/volume)Ordered By: Billy Loja on 09-12-2022 Urea nitrogen [Mass/Vol] 14 mg/dL 7-18 [facility] Thin prep Papanicolaou smear with manual screeningOrdered By: Billy Loja on 09-12-2022 Thin prep Papanicolaou smear with manual screening 7 5-15 [facility] Basophil percentageOrdered B y: Arnulfo English on 08-15-2022 Chloride [Moles/Vol] 106 mmol/L 98-107 [facility] Glucose [Mass/Vol] 75 mg/dL 74-106 [facility] Potassium [Moles/Vol] 3.7 mmol/L 3.5-5.1 [facility] Sodium [Moles/Vol] 138 mmol/L 136-145 [facility] WBC (Bld) [#/Vol] 5.4 10*3/uL 4.4-11.0 [facility] Blood erythrocytes count (nu mber/volume)Ordered By: Arnulfo English on 08-15-2022 RBC (Bld) [#/Vol] 4.11 10*6/uL 4.2-5.4 [facility] Blood hemoglobin measurement (mass/volume)Ordered By: Arnulfo English on 08-15-2022 Hemoglobin (Bld) [Mass/Vol] 11.6 g/dL 12.0-15.0 [facility] Blood platelet mean volumeOr dered By: Arnulfo English on 08-15-2022 Platelet mean volume (Bld) [Entitic vol] 12.0 fL 6.2-12.0 [facility] Determination of erythrocyte mean corpuscular volume (MCV)Ordered By: Arnulfo English on 08-15-2022 MCV (RBC) [Entitic vol] 90.3 fL 81-99 [facility] Hematocrit Auto (Bld) [Volum e fraction]Ordered By: Arnulfo English on 08-15-2022 Hematocrit (Bld) [Volume fraction] 37.1 % 37-47 [facility] Laboratory - Chemistry and C hemistry - challengeOrdered By: Arnulfo English on 08-15-2022 CO2 [Moles/Vol] 24.0 mmol/L 21.0-32.0 [facility] Urea nitrogen/Creatinine [Mass ratio] 33.8 mg/mg 10-20 [facility] - Hematology and Cell countsOrdered By: Arnulfo English on 08-15-2022 Erythrocyte distribution width (RBC) [Entitic vol] 46.5 fL 35.1-43.9 [facility] Erythrocyte distribution width (RBC) [Ratio] 14.0 % 11.6-14.6 [facility] MCH (RBC) [Entitic mass] 28.2 pg 27.0-32.0 [facility] MCHC Auto (RBC) [Mass/Vol]Or dered By: Arnulfo English on 08-15-2022 MCHC (RBC) [Mass/Vol] 31.3 g/dL 32-36 [facility] No Panel InformationOrdered By: Arnulfo English on 08-15-2022 Estimated GFR (MDRD) Amer 160 mL/min >60 [facility] Comment on above: GFR Calc Estimated GFR (MDRD) Non-Af Amer 132 mL/min >60 [facility] Comment on above: Non- GFR Calc Platelets bldOrdered By: Kota English on 08-15-2022 Platelets (Bld) [#/Vol] 218 10*3/uL 150-450 [facility] Serum or plasma calcium merlyn urement (mass/volume)Ordered By: Arnulfo English on 08-15-2022 Calcium [Mass/Vol] 9.2 mg/dL 8.5-10.1 [facility] Serum or plasma creatinine m easurement (mass/volume)Ordered By: Arnulfo English on 08-15-2022 Creatinine [Mass/Vol] 0.47 mg/dL 0.55-1.02 [facility] Comment on above: The validity of the calculated GFR & GFRAA in patients over 70 years has not been determined. Clinical correlation is essential. Serum or plasma urea nitroge n measurement (mass/volume)Ordered By: Arnulfo English on 08-15-2022 Urea nitrogen [Mass/Vol] 16 mg/dL 7-18 [facility] Thin prep Papanicolaou smear with manual screeningOrdered By: Teddybrian English on 08-15-2022 Thin prep Papanicolaou smear with manual screening 8 5-15 [facility] Basophil percentageOrdered B y: Billy Loja on 07-11-2022 Chloride [Moles/Vol] 105 mmol/L 98-107 [facility] Glucose [Mass/Vol] 82 mg/dL 74-106 [facility] Potassium [Moles/Vol] 4.2 mmol/L 3.5-5.1 [facility] Sodium [Moles/Vol] 140 mmol/L 136-145 [facility] [facility] W[facility] (Bld) [#/Vol] 5.3 10*3/uL 4.4-11.0 [facility] Blood erythrocytes count (nu mber/volume)Ordered By: Billy Loja on 07-11-2022 RBC (Bld) [#/Vol] 4.10 10*6/uL 4.2-5.4 [facility] Blood hemoglobin measurement (mass/volume)Ordered By: Billy Loja on 07-11-2022 Hemoglobin (Bld) [Mass/Vol] 11.2 g/dL 12.0-15.0 [facility] Blood platelet mean volumeOr dered By: Billy Loja on 07-11-2022 Platelet mean volume (Bld) [Entitic vol] 12.1 fL 6.2-12.0 [facility] Determination of erythrocyte mean corpuscular volume (MCV)Ordered By: Billy Loja on 07-11-2022 MCV (RBC) [Entitic vol] 89.8 fL 81-99 [facility] Hematocrit Auto (Bld) [Volum e fraction]Ordered By: Billy Loja on 07-11-2022 Hematocrit (Bld) [Volume fraction] 36.8 % 37-47 [facility] Laboratory - Chemistry and C hemistry - challengeOrdered By: Billy Loja on 07-11-2022 CO2 [Moles/Vol] 28.0 mmol/L 21.0-32.0 [facility] Urea nitrogen/Creatinine [Mass ratio] 31.6 mg/mg 10-20 [facility] Laboratory - Hematology and Cell countsOrdered By: Billy Loja on 07-11-2022 Erythrocyte distribution width (RBC) [Entitic vol] 46.3 fL 35.1-43.9 [facility] Erythrocyte distribution width (RBC) [Ratio] 14.0 % 11.6-14.6 [facility] MCH (RBC) [Entitic mass] 27.3 pg 27.0-32.0 [facility] MCHC Auto (RBC) [Mass/Vol]Or dered By: Billy Loja on 07-11-2022 MCHC (RBC) [Mass/Vol] 30.4 g/dL 32-36 [facility] No Panel InformationOrdered By: Billy Loja on 07-11-2022 Estimated GFR (MDRD) Amer 138 mL/min >60 [facility] Comment on above: GFR Calc Estimated GFR (MDRD) Non-Af Amer 114 mL/min >60 [facility] Comment on above: Non- GFR Calc Platelets bldOrdered By: Primo Loja on 07-11-2022 Platelets (Bld) [#/Vol] 238 10*3/uL 150-450 [facility] Serum or plasma calcium merlyn urement (mass/volume)Ordered By: Billy Loja on 07-11-2022 Calcium [Mass/Vol] 8.8 mg/dL 8.5-10.1 [facility] Serum or plasma creatinine m easurement (mass/volume)Ordered By: Billy Loja on 07-11-2022 Creatinine [Mass/Vol] 0.54 mg/dL 0.55-1.02 [facility] Comment on above: The validity of the calculated GFR & GFRAA in patients over 70 years has not been determined. Clinical correlation is essential. Serum or plasma urea nitroge n measurement (mass/volume)Ordered By: Billy Loja on 07-11-2022 Urea nitrogen [Mass/Vol] 17 mg/dL 7-18 [facility] Thin prep Papanicolaou smear with manual screeningOrdered By: Billy Loja on 07-11-2022 Thin prep Papanicolaou smear with manual screening 7 5-15 [facility] Basophil percentageOrdered B y: Billy Loja on 06-13-2022 Chloride [Moles/Vol] 109 mmol/L 98-107 [facility] Glucose [Mass/Vol] 83 mg/dL 74-106 [facility] Potassium [Moles/Vol] 3.9 mmol/L 3.5-5.1 [facility] Sodium [Moles/Vol] 141 mmol/L 136-145 [facility] WBC (Bld) [#/Vol] 5.6 10*3/uL 4.4-11.0 [facility] Blood erythrocytes count (nu mber/volume)Ordered By: Billy Loja on 06-13-2022 RBC (Bld) [#/Vol] 4.07 10*6/uL 4.2-5.4 [facility] Blood hemoglobin measurement (mass/volume)Ordered By: Billy Loja on 06-13-2022 Hemoglobin (Bld) [Mass/Vol] 11.1 g/dL 12.0-15.0 [facility] Blood platelet mean volumeOr dered By: Billy Loja on 06-13-2022 Platelet mean volume (Bld) [Entitic vol] 11.9 fL 6.2-12.0 [facility] Determination of erythrocyte mean corpuscular volume (MCV)Ordered By: Billy Loja on 06-13-2022 MCV (RBC) [Entitic vol] 89.4 fL 81-99 [facility] Hematocrit Auto (Bld) [Volum e fraction]Ordered By: Billy Loja on 06-13-2022 Hematocrit (Bld) [Volume fraction] 36.4 % 37-47 [facility] Laboratory - Chemistry and C hemistry - challengeOrdered By: Billy Loja on 06-13-2022 CO2 [Moles/Vol] 28.0 mmol/L 21.0-32.0 [facility] Urea nitrogen/Creatinine [Mass ratio] 36.3 mg/mg 10-20 [facility] Laboratory - Hematology and Cell countsOrdered By: Billy Loja on 06-13-2022 Erythrocyte distribution width (RBC) [Entitic vol] 45.2 fL 35.1-43.9 [facility] Erythrocyte distribution width (RBC) [Ratio] 13.8 % 11.6-14.6 [facility] MCH (RBC) [Entitic mass] 27.3 pg 27.0-32.0 [facility] MCHC Auto (RBC) [Mass/Vol]Or dered By: Billy Loja on 06-13-2022 MCHC (RBC) [Mass/Vol] 30.5 g/dL 32-36 [facility] No Panel InformationOrdered By: Billy Loja on 06-13-2022 Estimated GFR (MDRD) Amer 143 mL/min >60 [facility] Comment on above: GFR Calc Estimated GFR (MDRD) Non-Af Amer 118 mL/min >60 [facility] Comment on above: Non- GFR Calc Platelets bldOrdered By: Primo Loja on 06-13-2022 Platelets (Bld) [#/Vol] 233 10*3/uL 150-450 [facility] Serum or plasma calcium merlyn urement (mass/volume)Ordered By: Billy Loja on 06-13-2022 Calcium [Mass/Vol] 9.2 mg/dL 8.5-10.1 [facility] Serum or plasma creatinine m easurement (mass/volume)Ordered By: Billy Loja on 06-13-2022 Creatinine [Mass/Vol] 0.52 mg/dL 0.55-1.02 [facility] Comment on above: The validity of the calculated GFR & GFRAA in patients over 70 years has not been determined. Clinical correlation is essential. Serum or plasma urea nitroge n measurement (mass/volume)Ordered By: Billy Loja on 06-13-2022 Urea nitrogen [Mass/Vol] 19 mg/dL 7-18 [facility] Thin prep Papanicolaou smear with manual screeningOrdered By: Billy Loja on 06-13-2022 Thin prep Papanicolaou smear with manual screening 4 5-15 [facility] Basophil percentageon 2021 Chloride [Moles/Vol] 105 mmol/L 98-107 [facility] Work Phone: Glucose [Mass/Vol] 90 mg/dL 74-106 [facility] Work Phone: Potassium [Moles/Vol] 4.0 mmol/L 3.5-5.1 [facility] Work Phone: Sodium [Moles/Vol] 140 mmol/L 136-145 [facility] Work Phone: WBC (Bld) [#/Vol] 5.8 10*3/uL 4.4-11.0 [facility] Work Phone: [phone] Blood erythrocytes count (nu mber/volume)on 05-16-2022 RBC (Bld) [#/Vol] 4.15 10*6/uL 4.2-5.4 [facility] Work Phone: [phone] Blood hemoglobin measurement (mass/volume)on 05-16-2022 Hemoglobin (Bld) [Mass/Vol] 11.8 g/dL 12.0-15.0 [facility] Work Phone: [phone] Blood platelet mean volumeon 05-16-2022 Platelet mean volume (Bld) [Entitic vol] 11.8 fL 6.2-12.0 [facility] Work Phone: [phone] Determination of erythrocyte mean corpuscular volume (MCV)on 05-16-2022 MCV (RBC) [Entitic vol] 90.1 fL 81-99 [facility] Work Phone: [phone] Hematocrit Auto (Bld) [Volum e fraction]on 05-16-2022 Hematocrit (Bld) [Volume fraction] 37.4 % 37-47 [facility] Work Phone: [phone] Laboratory - Chemistry and C hemistry - challengeon 05-16-2022 CO2 [Moles/Vol] 27.0 mmol/L 21.0-32.0 [facility] Work Phone: [phone] Urea nitrogen/Creatinine [Mass ratio] 28.1 mg/mg 10-20 [facility] Work Phone: [phone] Laboratory - Hematology and Cell countson 05-16-2022 Erythrocyte distribution width (RBC) [Entitic vol] 47.0 fL 35.1-43.9 [facility] Work Phone: [phone] Erythrocyte distribution width (RBC) [Ratio] 14.2 % 11.6-14.6 [facility] Work Phone: [phone] MCH (RBC) [Entitic mass] 28.4 pg 27.0-32.0 [facility] Work Phone: [phone] MCHC Auto (RBC) [Mass/Vol]on 05-16-2022 MCHC (RBC) [Mass/Vol] 31.6 g/dL 32-36 [facility] Work Phone: No Panel Informationon 05-16 Estimated GFR (MDRD) Amer 130 mL/min >60 [facility] Work Phone: Comment on above: GFR Calc Estimated GFR (MDRD) Non-Af Amer 107 mL/min >60 [facility] Work Phone: Comment on above: Non- GFR Calc Platelets bldon 05-16-2022 Platelets (Bld) [#/Vol] 257 10*3/uL 150-450 [facility] Work Phone: Serum or plasma calcium merlyn urement (mass/volume)on 05-16-2022 Calcium [Mass/Vol] 9.3 mg/dL 8.5-10.1 [facility] Work Phone: Serum or plasma creatinine m easurement (mass/volume)on 05-16-2022 Creatinine [Mass/Vol] 0.57 mg/dL 0.55-1.02 [facility] Work Phone: Comment on above: The validity of the calculated GFR & GFRAA in patients over 70 years has not been determined. Clinical correlation is essential. Serum or plasma urea nitroge n measurement (mass/volume)on 05-16-2022 Urea nitrogen [Mass/Vol] 16 mg/dL 7-18 [facility] Work Phone: Thin prep Papanicolaou smear with manual screeningon 05-16-2022 Thin prep Papanicolaou smear with manual screening 8 5-15 [facility] Work Phone: CNOVon 05-15-2022 CNOV Office Visit (NECEED ) JUNIE WICK ([id number]) 1935 F Date Time Provider Department 05/15/22 2:05 PM KATHY BROWN During your visit today, we recorded the following information about you: Pulse Blood pressure Weight 74/minute 108/54 55.6 kg Kathy Brown APRN.HOG OPERATOR 05/17/2022 9:25 AM Signed [facility] Initial Visit CEREBROVASCULAR HISTORY Junie Wick is a 86 year old female who presents for a neurological evaluation. Previous patient of Dr. Hanks in [place] Previous visit with Dr. 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 May have been a transient hypertensive spike at the time. Recovered well with no other issues. Continue with aspirin monotherapy, which will likely be prison. Continue to keep close tab on BP Since last visit, Ms Wick reports no interval new symptoms. She is [...] cerebral infarction Date of Last Event: 10/21/2019 Antiplatelets/Anticoa gulants: Aspirin Statins: Atorvastatin Side effects: No Refills needed: No Residual Deficits: No residual deficits Current PT/OT/ST: No therapy needs Initial Discharge Disposition: Home PAST MEDICAL HISTORY Diagnosis Date Disorder of bone and cartilage, unspecified Diverticulosis of colon (without mention of hemorrhage) Diverticulosis Goiter, unspecified Unspecified essential hypertension Unspecified hypothyroidism Vascular dementia (HCC) PAST SURGICAL HISTORY Procedure Laterality Date COLONOSCOP W/ OR W/O [facility] SPEC 06/24/2001 sigmoidoscopy PAST SURGICAL HISTORY OF [...] temperature, proprioception, and vibration. Coordination: Rapid alternating m (more content not included)... Normal [facility] Basophil percentageon 2021 Chloride [Moles/Vol] 109 mmol/L 98-[address] [facility] Work Phone: [phone] Glucose [Mass/Vol] 82 mg/dL 74-106 [facility] Work Phone: [phone] Potassium [Moles/Vol] 4.2 mmol/L 3.5-5.1 [facility] Work Phone: [phone] Sodium [Moles/Vol] 141 mmol/L 136-145 [facility]: [phone] WBC (Bld) [#/Vol] 5.3 10*3/uL 4.4-11.0 [facility] Work Phone: [phone] Blood erythrocytes count (nu mber/volume)on 04-11-2022 RBC (Bld) [#/Vol] 4.04 10*6/uL 4.2-5.4 [facility]: [phone] Blood hemoglobin measurement (mass/volume)on 04-11-2022 Hemoglobin (Bld) [Mass/Vol] 11.3 g/dL 12.0-15.0 [facility] Work Phone: [phone] Blood platelet mean volumeon 04-11-2022 Platelet mean volume (Bld) [Entitic vol] 11.6 fL 6.2-12.0 [facility] Work Phone: [phone] Determination of erythrocyte mean corpuscular volume (MCV)on 04-11-2022 MCV (RBC) [Entitic vol] 88.9 fL 81-99 [facility] Work Phone: [phone] Hematocrit Auto (Bld) [Volum e fraction]on 04-11-2022 Hematocrit (Bld) [Volume fraction] 35.9 % 37-47 [facility] Work Phone: [phone] Laboratory - Chemistry and C hemistry - challengeon 04-11-2022 CO2 [Moles/Vol] 29.0 mmol/L 21.0-32.0 [facility] Work Phone: [phone] Urea nitrogen/Creatinine [Mass ratio] 24.2 mg/mg 10-20 [facility] Work Phone: [phone] Laboratory - Hematology and Cell countson 04-11-2022 Erythrocyte distribution width (RBC) [Entitic vol] 47.4 fL 35.1-43.9 [facility] Work Phone: [phone] Erythrocyte distribution width (RBC) [Ratio] 14.5 % 11.6-14.6 [facility] Work Phone: [phone] MCH (RBC) [Entitic mass] 28.0 pg 27.0-32.0 [facility] Work Phone: [phone] MCHC Auto (RBC) [Mass/Vol]on 04-11-2022 MCHC (RBC) [Mass/Vol] 31.5 g/dL 32- [facility] Work Phone: No Panel Informationon 04-11 Estimated GFR (MDRD) Amer 127 mL/min >60 [facility] Work Phone: Comment on above: GFR Calc Estimated GFR (MDRD) Non-Af Amer 105 mL/min >60 [facility] Work Phone: Comment on above: Non- GFR Calc Platelets bldon 04-11-2022 Platelets (Bld) [#/Vol] 237 10*3/uL 150-450 [facility] Work Phone: [phone] Serum or plasma calcium merlyn urement (mass/volume)on 04-11-2022 Calcium [Mass/Vol] 9.2 mg/dL 8.5-10.1 [facility] Work Phone: [phone] Serum or plasma creatinine m easurement (mass/volume)on 04-11-2022 Creatinine [Mass/Vol] 0.58 mg/dL 0.55-1.02 [facility] Work Phone: [phone] Comment on above: The validity of the calculated GFR & GFRAA in patients over 70 years has not been determined. Clinical correlation is essential. Serum or plasma urea nitroge n measurement (mass/volume)on 04-11-2022 Urea nitrogen [Mass/Vol] 14 mg/dL 7-18 [facility] Work Phone: Thin prep Papanicolaou smear with manual screeningon 04-11-2022 Thin prep Papanicolaou smear with manual screening 3 5-15 [facility] Work Phone: Basophil percentageon 2021 Chloride [Moles/Vol] 108 mmol/L 98-107 [facility]: [phone] Glucose [Mass/Vol] 82 mg/dL 74-106 [facility] Work Phone: [phone] Potassium [Moles/Vol] 4.0 mmol/L 3.5-5.1 [facility]: [phone] Sodium [Moles/Vol] 140 mmol/L 136-145 [facility] Work Phone: [phone] WBC (Bld) [#/Vol] 5.1 10*3/uL 4.4-11.0 [facility] Work Phone: Blood erythrocytes count (nu mber/volume)on 03-14-2022 RBC (Bld) [#/Vol] 4.01 10*6/uL 4.2-5.4 [facility] Work Phone: [phone] Blood hemoglobin measurement (mass/volume)on 03-14-2022 Hemoglobin (Bld) [Mass/Vol] 11.0 g/dL 12.0-15.0 [facility] Work Phone: [phone] Blood platelet mean volumeon 03-14-2022 Platelet mean volume (Bld) [Entitic vol] 11.6 fL 6.2-12.0 [facility] Work Phone: [phone] Determination of erythrocyte mean corpuscular volume (MCV)on 03-14-2022 MCV (RBC) [Entitic vol] 89.3 fL 81-99 [facility] Work Phone: [phone] Hematocrit Auto (Bld) [Volum e fraction]on 03-14-2022 Hematocrit (Bld) [Volume fraction] 35.8 % 37-47 [facility] Work Phone: Laboratory - Chemistry and C hemistry - challengeon 03-14-2022 CO2 [Moles/Vol] 26.0 mmol/L 21.0-32.0 [facility] Work Phone: [phone] Urea nitrogen/Creatinine [Mass ratio] 31.0 mg/mg 10-20 [facility] Work Phone: [phone] Laboratory - Hematology and Cell countson 03-14-2022 Erythrocyte distribution width (RBC) [Entitic vol] 46.7 fL 35.1-43.9 [facility] Work Phone: [phone] Erythrocyte distribution width (RBC) [Ratio] 14.5 % 11.6-14.6 [facility] Work Phone: [phone] MCH (RBC) [Entitic mass] 27.4 pg 27.0-32.0 [facility] Work Phone: [phone] MCHC Auto (RBC) [Mass/Vol]on 03-14-2022 MCHC (RBC) [Mass/Vol] 30.7 g/dL 32-36 [facility] Work Phone: No Panel Informationon 03-14 Estimated GFR (MDRD) Amer 119 mL/min >60 [facility] Work Phone: Comment on above: GFR Calc Estimated GFR (MDRD) Non-Af Amer 98 mL/min >60 [facility] Work Phone: Comment on above: Non- GFR Calc Platelets bldon 03-14-2022 Platelets (Bld) [#/Vol] 235 10*3/uL 150-450 [facility] Work Phone: [phone] Serum or plasma calcium merlyn urement (mass/volume)on 03-14-2022 Calcium [Mass/Vol] 9.4 mg/dL 8.5-10.1 [facility] Work Phone: [phone] Serum or plasma creatinine m easurement (mass/volume)on 03-14-2022 Creatinine [Mass/Vol] 0.61 mg/dL 0.55-1.02 [facility] Work Phone: Comment on above: The validity of the calculated GFR & GFRAA in patients over 70 years has not been determined. Clinical correlation is essential. Serum or plasma urea nitroge n measurement (mass/volume)on 03-14-2022 Urea nitrogen [Mass/Vol] 19 mg/dL 7-18 [facility] Work Phone: [phone] Thin prep Papanicolaou smear with manual screeningon 03-14-2022 Thin prep Papanicolaou smear with manual screening 6 5-15 [facility] Work Phone: [phone] No Panel Informationon 03-08 Thyroid Stimulating Hormone (TSH) 0.53 uIU/mL 0.358-3.74 [facility] Work Phone: Basophil percentageon 2021 Chloride [Moles/Vol] 108 mmol/L 98-107 [facility] Work Phone: Glucose [Mass/Vol] 86 mg/dL 74-106 [facility] Work Phone: [phone] Potassium [Moles/Vol] 4.1 mmol/L 3.5-5.1 [facility] Work Phone: [phone] Sodium [Moles/Vol] 141 mmol/L 136-145 [facility] Work Phone: WBC (Bld) [#/Vol] 5.3 10*3/uL 4.4-11.0 [facility] Work Phone: Blood erythrocytes count (nu mber/volume)on 02-14-2022 RBC (Bld) [#/Vol] 4.18 10*6/uL 4.2-5.4 [facility] Work Phone: Blood hemoglobin measurement (mass/volume)on 02-14-2022 Hemoglobin (Bld) [Mass/Vol] 11.4 g/dL 12.0-15.0 [facility] Work Phone: [phone] Blood platelet mean volumeon 02-14-2022 Platelet mean volume (Bld) [Entitic vol] 11.3 fL 6.2-12.0 [facility] Work Phone: [phone] Determination of erythrocyte mean corpuscular volume (MCV)on 02-14-2022 MCV (RBC) [Entitic vol] 87.1 fL 81-99 [facility] Work Phone: [phone] Hematocrit Auto (Bld) [Volum e fraction]on 02-14-2022 Hematocrit (Bld) [Volume fraction] 36.4 % 37-47 [facility] Work Phone: [phone] Laboratory - Chemistry and C hemistry - challengeon 02-14-2022 CO2 [Moles/Vol] 27.0 mmol/L 21.0-32.0 [facility] Work Phone: [phone] Urea nitrogen/Creatinine [Mass ratio] 25.0 mg/mg 10-20 [facility] Work Phone: [phone] Laboratory - Hematology and Cell countson 02-14-2022 Erythrocyte distribution width (RBC) [Entitic vol] 46.2 fL 35.1-43.9 [facility] Work Phone: [phone] Erythrocyte distribution width (RBC) [Ratio] 14.4 % 11.6-14.6 [facility] Work Phone: [phone] MCH (RBC) [Entitic mass] 27.3 pg 27.0-32.0 [facility] Work Phone: [phone] MCHC Auto (RBC) [Mass/Vol]on 02-14-2022 MCHC (RBC) [Mass/Vol] 31.3 g/dL 32-36 [facility] Work Phone: [phone] No Panel Informationon 02-14 Estimated GFR (MDRD) Amer 143 mL/min >60 [facility] Work Phone: [phone] Comment on above: GFR Calc Estimated GFR (MDRD) Non-Af Amer 119 mL/min >60 [facility] Work Phone: [phone] Comment on above: Non- GFR Calc Platelets bldon 02-14-2022 Platelets (Bld) [#/Vol] 240 10*3/uL 150-450 [facility] Work Phone: [phone] Serum or plasma calcium merlyn urement (mass/volume)on 02-14-2022 Calcium [Mass/Vol] 9.0 mg/dL 8.5-10.1 [facility] Work Phone: Serum or plasma creatinine m easurement (mass/volume)on 02-14-2022 Creatinine [Mass/Vol] 0.52 mg/dL 0.55-1.02 [facility] Work Phone: Comment on above: The validity of the calculated GFR & GFRAA in patients over 70 years has not been determined. Clinical correlation is essential. Serum or plasma urea nitroge n measurement (mass/volume)on 02-14-2022 Urea nitrogen [Mass/Vol] 13 mg/dL 7-18 [facility] Work Phone: Thin prep Papanicolaou smear with manual screeningon 02-14-2022 Thin prep Papanicolaou smear with manual screening 6 5-15 [facility] Work Phone: Basophil percentageon 2021 Chloride [Moles/Vol] 108 mmol/L 98-107 [facility] Work Phone: Glucose [Mass/Vol] 86 mg/dL 74-106 [facility] Work Phone: [phone] Potassium [Moles/Vol] 3.8 mmol/L 3.5-5.1 [facility] Work Phone: [phone] Sodium [Moles/Vol] 140 mmol/L 136-145 [facility] Work Phone: [phone] WBC (Bld) [#/Vol] 5.4 10*3/uL 4.4-11.0 [facility] Work Phone: [phone] Blood erythrocytes count (nu mber/volume)on 01-10-2022 RBC (Bld) [#/Vol] 4.02 10*6/uL 4.2-5.4 [facility] Work Phone: [phone] Blood hemoglobin measurement (mass/volume)on 01-10-2022 Hemoglobin (Bld) [Mass/Vol] 11.0 g/dL 12.0-15.0 [facility] Work Phone: [phone] Blood platelet mean volumeon 01-10-2022 Platelet mean volume (Bld) [Entitic vol] 11.8 fL 6.2-12.0 [facility] Work Phone: [phone] Determination of erythrocyte mean corpuscular volume (MCV)on 01-10-2022 MCV (RBC) [Entitic vol] 86.8 fL 81-99 [facility] Work Phone: [phone] Hematocrit Auto (Bld) [Volum e fraction]on 01-10-2022 Hematocrit (Bld) [Volume fraction] 34.9 % 37-47 [facility] Work Phone: [phone] Laboratory - Chemistry and C hemistry - challengeon 01-10-2022 CO2 [Moles/Vol] 26.0 mmol/L 21.0-32.0 [facility] Work Phone: [phone] Free T4 [Mass/Vol] 1.69 ng/dL 0.76-1.46 [facility] Work Phone: [phone] T4 [Mass/Vol] 12.9 ug/dL 4.8-13.9 [facility] Work Phone: [phone] Urea nitrogen/Creatinine [Mass ratio] 27.3 mg/mg 10-20 [facility] Work Phone: [phone] Laboratory - Hematology and Cell countson 01-10-2022 Erythrocyte distribution width (RBC) [Entitic vol] 42.9 fL 35.1-43.9 [facility] Work Phone: [phone] Erythrocyte distribution width (RBC) [Ratio] 13.4 % 11.6-14.6 [facility] Work Phone: [phone] MCH (RBC) [Entitic mass] 27.4 pg 27.0-32.0 [facility] Work Phone: MCHC Auto (RBC) [Mass/Vol]on 01-10-2022 MCHC (RBC) [Mass/Vol] 31.5 g/dL 32-36 [facility] Work Phone: No Panel Informationon 01-10 Estimated GFR (MDRD) Amer 146 mL/min >60 [facility] Work Phone: Comment on above: GFR Calc Estimated GFR (MDRD) Non-Af Amer 121 mL/min >60 [facility] Work Phone: Comment on above: Non- GFR Calc Thyroid Stimulating Hormone (TSH) 0.03 uIU/mL 0.358-3.74 [facility] Work Phone: Platelets bldon 01-10-2022 Platelets (Bld) [#/Vol] 231 10*3/uL 150-450 [facility] Work Phone: Serum or plasma calcium merlyn urement (mass/volume)on 01-10-2022 Calcium [Mass/Vol] 9.1 mg/dL 8.5-10.1 [facility] Work Phone: Serum or plasma creatinine m easurement (mass/volume)on 01-10-2022 Creatinine [Mass/Vol] 0.51 mg/dL 0.55-1.02 [facility] Work Phone: Comment on above: The validity of the calculated GFR & GFRAA in patients over 70 years has not been determined. Clinical correlation is essential. Serum or plasma urea nitroge n measurement (mass/volume)on 01-10-2022 Urea nitrogen [Mass/Vol] 14 mg/dL 7-18 [facility] Work Phone: Thin prep Papanicolaou smear with manual screeningon 01-10-2022 Thin prep Papanicolaou smear with manual screening 6 5-15 [facility] Work Phone: Basophil percentageon 2021 Chloride [Moles/Vol] 109 mmol/L 98-107 [facility] Work Phone: Glucose [Mass/Vol] 85 mg/dL 74-106 [facility] Work Phone: Potassium [Moles/Vol] 4.0 mmol/L 3.5-5.1 [facility] Work Phone: Sodium [Moles/Vol] 141 mmol/L 136-145 [facility] Work Phone: [phone] WBC (Bld) [#/Vol] 5.3 10*3/uL 4.4-11.0 [facility] Work Phone: [phone] Blood erythrocytes count (nu mber/volume)on 12-13-2021 RBC (Bld) [#/Vol] 4.01 10*6/uL 4.2-5.4 [facility] Work Phone: [phone] Blood hemoglobin measurement (mass/volume)on 12-13-2021 Hemoglobin (Bld) [Mass/Vol] 11.0 g/dL 12.0-15.0 [facility] Work Phone: [phone] Blood platelet mean volumeon 12-13-2021 Platelet mean volume (Bld) [Entitic vol] 11.5 fL 6.2-12.0 [facility] Work Phone: [phone] Determination of erythrocyte mean corpuscular volume (MCV)on 12-13-2021 MCV (RBC) [Entitic vol] 88.8 fL 81-99 [facility] Work Phone: [phone] Hematocrit Auto (Bld) [Volum e fraction]on 12-13-2021 Hematocrit (Bld) [Volume fraction] 35.6 % 37-47 [facility] Work Phone: [phone] Laboratory - Chemistry and C hemistry - challengeon 12-13-2021 CO2 [Moles/Vol] 27.0 mmol/L 21.0-32.0 [facility] Work Phone: [phone] Urea nitrogen/Creatinine [Mass ratio] 22.0 mg/mg 10-20 [facility] Work Phone: [phone] Laboratory - Hematology and Cell countson 12-13-2021 Erythrocyte distribution width (RBC) [Entitic vol] 43.9 fL 35.1-43.9 [facility] Work Phone: [phone] Erythrocyte distribution width (RBC) [Ratio] 13.4 % 11.6-14.6 [facility] Work Phone: [phone] MCH (RBC) [Entitic mass] 27.4 pg 27.0-32.0 [facility] Work Phone: MCHC Auto (RBC) [Mass/Vol]on 12-13-2021 MCHC (RBC) [Mass/Vol] 30.9 g/dL 32-36 [facility] Work Phone: No Panel Informationon 12-13 Estimated GFR (MDRD) Amer 124 mL/min >60 [facility] Work Phone: Comment on above: GFR Calc Estimated GFR (MDRD) Non-Af Amer 103 mL/min >60 [facility] Work Phone: Comment on above: Non- GFR Calc Platelets bldon 12-13-2021 Platelets (Bld) [#/Vol] 235 10*3/uL 150-450 [facility] Work Phone: Serum or plasma calcium merlyn urement (mass/volume)on 12-13-2021 Calcium [Mass/Vol] 9.1 mg/dL 8.5-10.1 [facility] Work Phone: Serum or plasma creatinine m easurement (mass/volume)on 12-13-2021 Creatinine [Mass/Vol] 0.59 mg/dL 0.55-1.02 [facility] Work Phone: Comment on above: The validity of the calculated GFR & GFRAA in patients over 70 years has not been determined. Clinical correlation is essential. Serum or plasma urea nitroge n measurement (mass/volume)on 12-13-2021 Urea nitrogen [Mass/Vol] 13 mg/dL 7-18 [facility] Work Phone: Thin prep Papanicolaou smear with manual screeningon 12-13-2021 Thin prep Papanicolaou smear with manual screening 5 5-15 [facility] Work Phone: Basophil percentageon 2021 Chloride [Moles/Vol] 110 mmol/L 98-107 [facility] Work Phone: Glucose [Mass/Vol] 89 mg/dL 74-106 [facility] Work Phone: Potassium [Moles/Vol] 4.1 mmol/L 3.5-5.1 [facility] Work Phone: [phone] Sodium [Moles/Vol] 140 mmol/L 136-145 [facility] Work Phone: [phone] WBC (Bld) [#/Vol] 4.4 10*3/uL 4.4-11.0 [facility] Work Phone: [phone] Blood erythrocytes count (nu mber/volume)on 11-08-2021 RBC (Bld) [#/Vol] 4.01 10*6/uL 4.2-5.4 [facility]: [phone] Blood hemoglobin measurement (mass/volume)on 11-08-2021 Hemoglobin (Bld) [Mass/Vol] 11.0 g/dL 12.0-15.0 [facility] Work Phone: [phone] Blood platelet mean volumeon 11-08-2021 Platelet mean volume (Bld) [Entitic vol] 10.8 fL 6.2-12.0 [facility] Work Phone: [phone] Determination of erythrocyte mean corpuscular volume (MCV)on 11-08-2021 MCV (RBC) [Entitic vol] 88.3 fL 81-99 [facility] Work Phone: [phone] Hematocrit Auto (Bld) [Volum e fraction]on 11-08-2021 Hematocrit (Bld) [Volume fraction] 35.4 % 37-47 [facility] Work Phone: [phone] Laboratory - Chemistry and C hemistry - challengeon 11-08-2021 CO2 [Moles/Vol] 28.0 mmol/L 21.0-32.0 [facility] Work Phone: [phone] Urea nitrogen/Creatinine [Mass ratio] 20.4 mg/mg 10-20 [facility] Work Phone: [phone] Laboratory - Hematology and Cell countson 11-08-2021 Erythrocyte distribution width (RBC) [Entitic vol] 45.1 fL 35.1-43.9 [facility] Work Phone: Erythrocyte distribution width (RBC) [Ratio] 14.0 % 11.6-14.6 [facility] Work Phone: MCH (RBC) [Entitic mass] 27.4 pg 27.0-32.0 [facility] Work Phone: MCHC Auto (RBC) [Mass/Vol]on 11-08-2021 MCHC (RBC) [Mass/Vol] 31.1 g/dL 32-36 [facility] Work Phone: No Panel Informationon 11-08 Estimated GFR (MDRD) Amer 125 mL/min >60 [facility] Work Phone: Comment on above: GFR Calc Estimated GFR (MDRD) Non-Af Amer 103 mL/min >60 [facility] Work Phone: Comment on above: Non- GFR Calc Platelets bldon 11-08-2021 Platelets (Bld) [#/Vol] 244 10*3/uL 150-450 [facility] Work Phone: Serum or plasma calcium merlyn urement (mass/volume)on 11-08-2021 Calcium [Mass/Vol] 9.1 mg/dL 8.5-10.1 [facility] Work Phone: Serum or plasma creatinine m easurement (mass/volume)on 11-08-2021 Creatinine [Mass/Vol] 0.59 mg/dL 0.55-1.02 [facility] Work Phone: Comment on above: The validity of the calculated GFR & GFRAA in patients over 70 years has not been determined. Clinical correlation is essential. Serum or plasma urea nitroge n measurement (mass/volume)on 11-08-2021 Urea nitrogen [Mass/Vol] 12 mg/dL 7-18 [facility] Work Phone: Thin prep Papanicolaou smear with manual screeningon 11-08-2021 Thin prep Papanicolaou smear with manual screening 2 5-15 [facility] Work Phone: [phone] Basophil percentageon 2021 Chloride [Moles/Vol] 107 mmol/L 98-[address] [facility] [address] [facility] Work Phone: [phone] Glucose [Mass/Vol] 72 mg/dL 74-106 [facility] Work Phone: [phone] Potassium [Moles/Vol] 4.2 mmol/L 3.5-5.1 [facility] Work Phone: [phone] Sodium [Moles/Vol] 140 mmol/L 136-145 [facility] Work Phone: [phone] WBC (Bld) [#/Vol] 5.0 10*3/uL 4.4-11.0 [facility] Work Phone: [phone] Blood erythrocytes count (nu mber/volume)on 10-11-2021 RBC (Bld) [#/Vol] 3.73 10*6/uL 4.2-5.4 [facility] Work Phone: [phone] Blood hemoglobin measurement (mass/volume)on 10-11-2021 Hemoglobin (Bld) [Mass/Vol] 10.1 g/dL 12.0-15.0 [facility] Work Phone: [phone] Blood platelet mean volumeon 10-11-2021 Platelet mean volume (Bld) [Entitic vol] 11.5 fL 6.2-12.0 [facility] Work Phone: [phone] Determination of erythrocyte mean corpuscular volume (MCV)on 10-11-2021 MCV (RBC) [Entitic vol] 87.7 fL 81-99 [facility] Work Phone: [phone] Hematocrit Auto (Bld) [Volum e fraction]on 10-11-2021 Hematocrit (Bld) [Volume fraction] 32.7 % 37-47 [facility] Work Phone: [phone] Laboratory - Chemistry and C hemistry - challengeon 10-11-2021 CO2 [Moles/Vol] 25.0 mmol/L 21.0-32.0 [facility] Work Phone: [phone] Urea nitrogen/Creatinine [Mass ratio] 28.5 mg/mg 10-20 [facility] Work Phone: [phone] Laboratory - Hematology and Cell countson 10-11-2021 Erythrocyte distribution width (RBC) [Entitic vol] 46.8 fL 35.1-43.9 [facility] Work Phone: [phone] Erythrocyte distribution width (RBC) [Ratio] 14.6 % 11.6-14.6 [facility] Work Phone: [phone] MCH (RBC) [Entitic mass] 27.1 pg 27.0-32.0 [facility] Work Phone: [phone] MCHC Auto (RBC) [Mass/Vol]on 10-11-2021 MCHC (RBC) [Mass/Vol] 30.9 g/dL 32-36 [facility] Work Phone: [phone] No Panel Informationon 10-11 Estimated GFR (MDRD) Amer 142 mL/min >60 [facility] Work Phone: Comment on above: GFR Calc Estimated GFR (MDRD) Non-Af Amer 117 mL/min >60 [facility] Work Phone: Comment on above: Non- GFR Calc Platelets bldon 10-11-2021 Platelets (Bld) [#/Vol] 244 10*3/uL 150-450 [facility] Work Phone: [phone] Serum or plasma calcium merlyn urement (mass/volume)on 10-11-2021 Calcium [Mass/Vol] 8.9 mg/dL 8.5-10.1 [facility] Work Phone: [phone] Serum or plasma creatinine m easurement (mass/volume)on 10-11-2021 Creatinine [Mass/Vol] 0.53 mg/dL 0.55-1.02 [facility] Work Phone: Comment on above: The validity of the calculated GFR & GFRAA in patients over 70 years has not been determined. Clinical correlation is essential. Serum or plasma urea nitroge n measurement (mass/volume)on 10-11-2021 Urea nitrogen [Mass/Vol] 15 mg/dL 7-18 [facility] Work Phone: Thin prep Papanicolaou smear with manual screeningon 10-11-2021 Thin prep Papanicolaou smear with manual screening 8 5-15 [facility] Work Phone: Basophil percentageon 2021 Chloride [Moles/Vol] 106 mmol/L 98-107 [facility]: [phone] Cholesterol [Mass/Vol] 104 mg/dL <200 [facility] Work Phone: [phone] Comment on above: <200 mg/dL Desirable 200-240 mg/dL Borderline >240 mg/dL High Risk Glucose [Mass/Vol] 84 mg/dL 74-106 [facility] Work Phone: [phone] Potassium [Moles/Vol] 3.9 mmol/L 3.5-5.1 [facility] Work Phone: [phone] Sodium [Moles/Vol] 138 mmol/L 136-145 [facility] Work Phone: [phone] Triglyceride [Mass/Vol] 70 mg/dL [facility] Work Phone: Comment on above: The drugs N-Acetylcy steine and Metamizole may falsely depress this assay.Serum Triglycerides Reference Interval Normal <150 mg/dL Borderline high 150 - 199 mg/dL High 200 - 499 mg/dL Very High > or = 500 mg/dL WBC (Bld) [#/Vol] 5.9 10*3/uL 4.4-11.0 [facility] Work Phone: Blood erythrocytes count (nu mber/volume)on 09-13-2021 RBC (Bld) [#/Vol] 3.83 10*6/uL 4.2-5.4 [facility] Work Phone: [phone] Blood hemoglobin measurement (mass/volume)on 09-13-2021 Hemoglobin (Bld) [Mass/Vol] 10.2 g/dL 12.0-15.0 [facility] Work Phone: [phone] Blood platelet mean volumeon 09-13-2021 Platelet mean volume (Bld) [Entitic vol] 10.9 fL 6.2-12.0 [facility] Work Phone: [phone] Determination of erythrocyte mean corpuscular volume (MCV)on 09-13-2021 MCV (RBC) [Entitic vol] 88.3 fL 81-99 [facility] Work Phone: [phone] Hematocrit Auto (Bld) [Volum e fraction]on 09-13-2021 Hematocrit (Bld) [Volume fraction] 33.8 % 37-47 [facility] Work Phone: [phone] Laboratory - Chemistry and C hemistry - challengeon 09-13-2021 CO2 [Moles/Vol] 27.0 mmol/L 21.0-32.0 [facility] Work Phone: [phone] Urea nitrogen/Creatinine [Mass ratio] 34.1 mg/mg 10-20 [facility] Work Phone: [phone] Laboratory - Hematology and Cell countson 09-13-2021 Erythrocyte distribution width (RBC) [Entitic vol] 44.5 fL 35.1-43.9 [facility] Work Phone: [phone] Erythrocyte distribution width (RBC) [Ratio] 13.6 % 11.6-14.6 [facility] Work Phone: [phone] MCH (RBC) [Entitic mass] 26.6 pg 27.0-32.0 [facility] Work Phone: [phone] MCHC Auto (RBC) [Mass/Vol]on 09-13-2021 MCHC (RBC) [Mass/Vol] 30.2 g/dL 32-36 [facility] Work Phone: [phone] Panel Informationon 09-13 Estimated GFR (MDRD) Amer 125 mL/min >60 [facility] Work Phone: [phone] Comment on above: GFR Calc Estimated GFR (MDRD) Non-Af Amer 103 mL/min >60 [facility] Work Phone: [phone] Comment on above: Non- GFR Calc Platelets bldon 09-13-2021 Platelets (Bld) [#/Vol] 297 10*3/uL 150-450 [facility] Work Phone: Serum or plasma calcium merlyn urement (mass/volume)on 09-13-2021 Calcium [Mass/Vol] 8.8 mg/dL 8.5-10.1 [facility] Work Phone: [phone] Serum or plasma cholesterol in HDL measurement (mass/volume)on 09-13-2021 Cholesterol in HDL [Mass/Vol] 53 mg/dL [facility] Work Phone: Comment on above: The drugs N-Acetylcy steine and Metamizole may falsely depress this assay. Reference Range HDL <40 mg/dL Low HDL Cholesterol HDL >or= 60 mg/dL High HDL Cholesterol Serum or plasma cholesterol in VLDL measurement (mass/volume)on 09-13-2021 Cholesterol in VLDL [Mass/Vol] 14 mg/dL 5-40 [facility] Work Phone: [phone] Serum or plasma creatinine m easurement (mass/volume)on 09-13-2021 Creatinine [Mass/Vol] 0.59 mg/dL 0.55-1.02 [facility] Work Phone: Comment on above: The validity of the calculated GFR & GFRAA in patients over 70 years has not been determined. Clinical correlation is essential. Serum or plasma low density lipoprotein (LDL) cholesterol measurement (mass/volume)on 09-13-2021 Cholesterol in LDL [Mass/Vol] 37 mg/dL 0-130 [facility] Work Phone: [phone] Serum or plasma urea nitroge n measurement (mass/volume)on 09-13-2021 Urea nitrogen [Mass/Vol] 20 mg/dL 7-18 [facility] Work Phone: [phone] Thin prep Papanicolaou smear with manual screeningon 09-13-2021 Thin prep Papanicolaou smear with manual screening 5 5-15 [facility] Work Phone: [phone] Basophil percentageon 2020 Chloride [Moles/Vol] 105 mmol/L 98-107 [facility] Work Phone: [phone] Glucose [Mass/Vol] 94 mg/dL 74-106 [facility] Work Phone: Comment on above: Please note revised GLUCOSE reference range effective 2017. Potassium [Moles/Vol] 4.1 mmol/L 3.5-5.1 [facility] Work Phone: Sodium [Moles/Vol] 140 mmol/L 136-145 [facility] Work Phone: WBC (Bld) [#/Vol] 6.9 10*3/uL 4.4-11.0 [facility] Work Phone: Blood erythrocytes count (nu mber/volume)on 08-16-2021 RBC (Bld) [#/Vol] 4.47 10*6/uL 4.2-5.4 [facility] Work Phone: Blood hemoglobin measurement (mass/volume)on 08-16-2021 Hemoglobin (Bld) [Mass/Vol] 12.2 g/dL 12.0-15.0 [facility] Work Phone: [phone] Blood platelet mean volumeon 08-16-2021 Platelet mean volume (Bld) [Entitic vol] 11.0 fL 6.2-12.0 [facility] Work Phone: Determination of erythrocyte mean corpuscular volume (MCV)on 08-16-2021 MCV (RBC) [Entitic vol] 89.0 fL 81-99 [facility] Work Phone: [phone] Hematocrit Auto (Bld) [Volum e fraction]on 08-16-2021 Hematocrit (Bld) [Volume fraction] 39.8 % 37-47 [facility] Work Phone: Laboratory - Chemistry and C hemistry - challengeon 08-16-2021 CO2 [Moles/Vol] 30.0 mmol/L 21.0-32.0 [facility] Work Phone: Urea nitrogen/Creatinine [Mass ratio] 19.4 mg/mg 10-20 [facility] Work Phone: [phone] Laboratory - Hematology and Cell countson 08-16-2021 Erythrocyte distribution width (RBC) [Entitic vol] 44.2 fL 35.1-43.9 [facility] Work Phone: Erythrocyte distribution width (RBC) [Ratio] 13.5 % 11.6-14.6 [facility] Work Phone: MCH (RBC) [Entitic mass] 27.3 pg 27.0-32.0 [facility] Work Phone: MCHC Auto (RBC) [Mass/Vol]on 08-16-2021 MCHC (RBC) [Mass/Vol] 30.7 g/dL 32-36 [facility] Work Phone: No Panel Informationon 08-16 Estimated GFR (MDRD) Amer 130 mL/min >60 [facility] Work Phone: Comment on above: GFR Calc Estimated GFR (MDRD) Non-Af Amer 108 mL/min >60 [facility] Work Phone: Comment on above: Non- GFR Calc Platelets bldon 08-16-2021 Platelets (Bld) [#/Vol] 341 10*3/uL 150-450 [facility] Work Phone: Serum or plasma calcium merlyn urement (mass/volume)on 08-16-2021 Calcium [Mass/Vol] 9.3 mg/dL 8.5-10.1 [facility] Work Phone: Serum or plasma creatinine m easurement (mass/volume)on 08-16-2021 Creatinine [Mass/Vol] 0.57 mg/dL 0.55-1.02 [facility] Work Phone: Comment on above: The validity of the calculated GFR & GFRAA in patients over 70 years has not been determined. Clinical correlation is essential. Serum or plasma urea nitroge n measurement (mass/volume)on 08-16-2021 Urea nitrogen [Mass/Vol] 11 mg/dL 7-18 [facility] Work Phone: Thin prep Papanicolaou smear with manual screeningon 08-16-2021 Thin prep Papanicolaou smear with manual screening 5 5-15 [facility] Work Phone: Myra 06-28-2021 [facility] Office Visit (MARLA ) JUNIE WICK ([id number]) 1935 F Date Time Provider Department 06/28/21 1:00 PM DAIANA BROWN During your visit today, we recorded the following information about you: Pulse Blood pressure Weight Height 65/minute 140/78 54.4 kg 1.549 m Daiana Brown APRN.CNP 06/28/2021 1:21 PM Addendum Continue with aspirin See Neurology For Stroke patients, I discussed risk factor modification including: Hypertension - Target blood pressure <140/90, <130/85 for high risk, normal 120/80 Physical inactivity - target exercise at least 3 times per week Obesity - target ideal body weight and girth <35" for women, <40" for men Diabetes - Target <6.5-7% Smoking - Target smoking cessation Hyperlipidemia - Target total cholesterol < 200, Target LDL <100, < 70 for high risk, Target HDL >45 for men, >55 for women, Target triglycerides <150 Daiana Brown APRN.CNP 06/28/2021 1:39 PM Signed Neurology Follow Up Note Date: June 28, 2021 Patient Name: Junie Wick HPI: This is Ms. Junie Wick a 85 year old female who presents to [facility] for follow up of CVA. [...] Size: Regular Adult) Pulse 65 Ht 5' 1" (1.549 m) Wt 120 lb (54.4 kg) [...] - target ideal body weight and girth <35" for women, <40" for men Diabetes - Target <6.5-7% Smoking - Target smoking cessation Hyperlipidemia - Target total cholesterol < 200, Target LDL <100, < 70 for high risk, Target HDL >45 for men, >55 for women, Target triglycerides <150 Daiana Brown APRN.HOG OPERATOR [facility], Department of Neurology Referring Provider: FERCHO WHITEHEAD [[id number]] Allergies As of Date: 06/28/2021 Noted Allergy Reaction LEVOTHYROXINE 09/28/2014 14 - Other: See Comments Comments: palpitations on generic NAPROSYN (NAPROXEN) 06/13/2005 Comments: nosebleeds Date Reviewed: 06/28/2021 Reviewed by: Jany Oakes MA - Fully Assessed Reason for Visit: Established Patient [175] Cmt: 1 year follow up-Stroke. Dr. Hanks patient Primary Visit Diagnosis:Cerebellar hemorrhage, acute (HCC) [I61.4] Other Visit Diagnoses:Cerebellar stroke (HCC) [I63.9] Hypertension, unspecified type [I10] Order(s):CONSULT TO NEUROLOGY [9006] Order #: [id number]: 1 FUTURE Prescriptions as of 06/28/2021 - acetaminophen (TYLENOL) 325 mg cap Take by mouth. - SYNTHROID 100 mcg tablet Take 1 tablet by mouth once daily. BRAND NAME, Take on empty stomach - atorvastatin (LIPITOR) 40 mg tablet Ad (more content not included)... Normal [facility] Basic Panelon 10-23-2019 Creatinine [Mass/Vol] 0.59 mg/dL Normal 0.51-0.95 [facility] Comment on above: Result Comment: Use of this assay is not recommended for patients undergoing treatment with phenindione, due to the potential for falsely depressed results. Performed By: #### I ONCA #### [address] [address] Anion gap [Moles/Vol] 11 mmol/L Normal 8-16 [facility] Comment on above: Performed By: #### I ONCA #### [address] [address] CO2 [Moles/Vol] 24 mmol/L Normal 21-32 [facility] Comment on above: Performed By: #### I ONCA #### [address] [address] Glucose [Mass/Vol] 89 mg/dL Normal 70-99 [facility] Comment on above: Performed By: #### I ONCA #### [facility] [address] [address] Calcium [Mass/Vol] 8.4 mg/dL Low 8.5-10.1 [facility] Comment on above: Performed By: #### I ONCA #### [facility] [address] [address] Urea nitrogen [Mass/Vol] 18 mg/dL Normal 7-18 [facility] Comment on above: Performed By: #### I ONCA #### [facility] [address] [address] Chloride [Moles/Vol] 110 mmol/L High 98-107 [facility] Comment on above: Performed By: #### I ONCA #### [place] [address] Potassium [Moles/Vol] 3.9 mmol/L Normal 3.5-5.1 [facility] Comment on above: Performed By: #### I ONCA #### [facility] [address] [address] Sodium [Moles/Vol] 141 mmol/L Normal 136-145 [facility] Comment on above: Performed By: #### I ONCA #### [facility] [address] [address] Hemogram/Diffon 10-23-2019 Abs Immature Grans 0.02 thou/cmm Normal 0.00-0.05 [facility] Comment on above: Performed By: #### I ONCA #### [facility] [address] [address] Abs Neut (ANC) 3.18 thou/cmm Normal 1.56-6.13 [facility] Comment on above: Performed By: #### I ONCA #### [facility] [address] [address] Abs. Baso 0.04 thou/cmm Normal 0.01-0.08 [facility] Comment on above: Performed By: #### I ONCA #### [facility] [address] [address] Abs. Greer 0.75 thou/cmm High 0.27-0.70 [facility] Comment on above: Performed By: #### I ONCA #### [facility] [address] [address] Basophils/100 WBC (Bld) 0.7 % Normal [facility] Comment on above: Performed By: #### I ONCA #### [facility] [address] [address] Eosinophils (Bld) [#/Vol] 0.15 thou/cmm Normal 0.00-0.31 [facility] Comment on above: Performed By: #### I ONCA #### [facility] [address] [address] Eosinophils/100 WBC (Bld) 2.5 % Normal [facility] Comment on above: Performed By: #### I ONCA #### [facility] [address] [address] Erythrocyte distribution width (RBC) [Ratio] 13.5 % Normal 11.7-14.4 [facility] Comment on above: Performed By: #### I ONCA #### [facility] [address] [address] Hematocrit (Bld) [Volume fraction] 39.3 % Normal 34.1-44.9 [facility] Comment on above: Performed By: #### I ONCA #### [facility] [address] [address] Hemoglobin (Bld) [Mass/Vol] 12.4 g/dL Normal 11.2-15.7 [facility] Comment on above: Performed By: #### I ONCA #### [facility] [address] [address] Immature Grans 0.30 % Normal [facility] Comment on above: Performed By: #### I ONCA #### [facility] [address] [address] Lymphocytes (Bld) [#/Vol] 1.85 thou/cmm Normal 1.18-3.74 [facility] Comment on above: Performed By: #### I ONCA #### [facility] [address] [place], [place] [address] Lymphocytes/100 WBC (Bld) 30.9 % Normal [facility] Comment on above: Performed By: #### I ONCA #### [facility] [address] [place], [place] [address] MCH (RBC) [Entitic mass] 28.1 pg Normal 25.6-32.2 [facility] Comment on above: Performed By: #### I ONCA #### [facility] [address] [place], [place] [address] MCHC (RBC) [Mass/Vol] 31.6 % Normal 31.6-34.8 [facility] Comment on above: Performed By: #### I ONCA #### [address] [address] MCV (RBC) [Entitic vol] 88.9 fL Normal 79.4-94.8 [facility] Comment on above: Performed By: #### I ONCA #### [facility] [address] [place], [place] [address] Monocytes/100 WBC (Bld) 12.5 % Normal [facility] Comment on above: Performed By: #### I ONCA #### [address] [address] Platelet mean volume (Bld) [Entitic vol] 11.1 fL Normal 9.4-12.3 [facility] Comment on above: Performed By: #### I ONCA #### [facility] [address] [place], [place] [address] Platelets (Bld) [#/Vol] 215 thou/cmm Normal 182-369 [facility] Comment on above: Performed By: #### I ONCA #### [facility] [address] [place], [place] [address] RBC (Bld) [#/Vol] 4.42 mil/cmm Normal 3.93-5.22 [facility] Comment on above: Performed By: #### I ONCA #### [facility] [address] [place], [place] [address] RDW SD 44.3 fl Normal 36.4-46.3 [facility] Comment on above: Performed By: #### I ONCA #### [facility] [address] [place], [place] [address] Seg Neutrophil 53.1 % Normal [facility] Comment on above: Performed By: #### I ONCA #### [facility] [address] [place] [address] WBC (Bld) [#/Vol] 5.99 thou/cmm Normal 3.98-10.04 [facility] Comment on above: Performed By: #### I ONCA #### [facility] [address] [place] [address] Hgb A1con 10-23-2019 HbA1c (Bld) [Mass fraction] 120 mg/dl Normal [facility] Comment on above: Performed By: #### T &S #### [facility] [address] [place] [address] HbA1c (Bld) [Mass fraction] 5.8 % Normal 4.2-6.3 [facility] Comment on above: Result Comment: Meth od is National Glycohemoglobin Standardization Program (NGSP) compliant. Performed By: #### T &S #### [facility] [address] [place] [address] Lipid Profileon 10-23-2019 Cholesterol in HDL [Mass/Vol] 62 mg/dL Normal >40 [facility] Comment on above: Performed By: #### I ONCA #### [facility] [address] [place] [address] Cholesterol in LDL [Mass/Vol] 86 mg/dL Normal [facility] Comment on above: Result Comment: No C AD and with fewer than 2 CAD risk factors <160 mg/dL No CAD but with 2 or more CAD risk factors <130 mg/dL Definite CAD or other atherosclerotic disease <100 mg/dL Performed By: #### I ONCA #### [facility] [address] [place] [address] Cholesterol in LDL/Cholesterol in HDL [Mass ratio] 1.4 Normal 0.6-3.6 [facility] Comment on above: Result Comment: LDL, VLDL,LDL/HDL, Invalid if Triglyceride >400 Performed By: #### I ONCA #### [facility] [address] [place], [place] [address] Cholesterol.total/Choles terol in HDL [Mass ratio] 2.7 {ratio} Normal 1.8-5.3 [facility] Comment on above: Performed By: #### I ONCA #### [facility] [address] [place] [address] Cholesterol [Mass/Vol] 169 mg/dL Normal 0-199 [facility] Comment on above: Result Comment: <200 Desirable 200-240 Borderline >240 High Performed By: #### I ONCA #### [place] [address] Cholesterol in VLDL [Mass/Vol] 21 mg/dL Normal <50 Desired [facility] Comment on above: Performed By: #### I ONCA #### [place] [address] Triglyceride [Mass/Vol] 107 mg/dL Normal 0-[address] [facility] Comment on above: Result Comment: < 20 0 Desirable Result invalid if not a fasting specimen. Performed By: #### I ONCA #### [place] [address] MDRD GFRon 10-23-2019 GFR/1.73 sq M predicted among non-blacks MDRD (S/P/Bld) [Vol rate/Area] mL/min/{1.73_m2} Normal >60mL/min/1.7 3m2 [facility] Comment on above: Result Comment: If t he patient is , multiply the result by 1.210. Performed By: #### C BCD1 #### [facility] [address] [place] [id number] Magnesium Bloodon 10-23-2019 Magnesium [Mass/Vol] 2.1 mg/dL Normal 1.6-2.6 [facility] Comment on above: Performed By: #### I ONCA #### [place] [id number] Basic Panelon 10-22-2019 Creatinine [Mass/Vol] 0.65 mg/dL Normal 0.51-0.95 [facility] Comment on above: Result Comment: Use of this assay is not recommended for patients undergoing treatment with phenindione, due to the potential for falsely depressed results. Performed By: #### I ONCA #### [facility] [address] [place], [place] [address] Anion gap [Moles/Vol] 10 mmol/L Normal 8-16 [facility] Comment on above: Performed By: #### I ONCA #### [facility] [address] [place], [place] [address] Calcium [Mass/Vol] 8.5 mg/dL Normal 8.5-10.1 [facility] Comment on above: Performed By: #### I ONCA #### [address] [address] CO2 [Moles/Vol] 22 mmol/L Normal 21-32 [facility] Comment on above: Performed By: #### I ONCA #### [address] [address] Glucose [Mass/Vol] 83 mg/dL Normal 70-99 [facility] Comment on above: Performed By: #### I ONCA #### [address] [address] Urea nitrogen [Mass/Vol] 16 mg/dL Normal 7-18 [facility] Comment on above: Performed By: #### I ONCA #### [address] [address] Chloride [Moles/Vol] 111 mmol/L High 98-107 [facility] Comment on above: Performed By: #### I ONCA #### [facility] [address] [place], [place] [address] Potassium [Moles/Vol] 4.1 mmol/L Normal 3.5-5.1 [facility] Comment on above: Performed By: #### I ONCA #### [address] [address] Sodium [Moles/Vol] 139 mmol/L Normal 136-145 [facility] Comment on above: Performed By: #### I ONCA #### [facility] [address] [place] [address] Hemogram/Diffon 10-22-2019 Abs Immature Grans 0.02 thou/cmm Normal 0.00-0.05 [facility] Comment on above: Performed By: #### I ONCA #### [facility] [address] [place] [address] Abs Neut (ANC) 3.79 thou/cmm Normal 1.56-6.13 [facility] Comment on above: Performed By: #### I ONCA #### [facility] [address] [place] [address] Abs. Baso 0.04 thou/cmm Normal 0.01-0.08 [facility] Comment on above: Performed By: #### I ONCA #### [place] [address] Abs. Greer 0.91 thou/cmm High 0.27-0.70 [facility] Comment on above: Performed By: #### I ONCA #### [place] [address] Basophils/100 WBC (Bld) 0.6 % Normal [facility] Comment on above: Performed By: #### I ONCA #### [place] [address] Eosinophils (Bld) [#/Vol] 0.15 thou/cmm Normal 0.00-0.31 [facility] Comment on above: Performed By: #### I ONCA #### [place] [address] Eosinophils/100 WBC (Bld) 2.1 % Normal [facility] Comment on above: Performed By: #### I ONCA #### [facility] [address] [place] [address] Erythrocyte distribution width (RBC) [Ratio] 13.6 % Normal 11.7-14.4 [facility] Comment on above: Performed By: #### I ONCA #### [facility] [address] [place], [place] [address] Hematocrit (Bld) [Volume fraction] 38.6 % Normal 34.1-44.9 [facility] Comment on above: Performed By: #### I ONCA #### [facility] [address] [place], [place] [address] Hemoglobin (Bld) [Mass/Vol] 11.9 g/dL Normal 11.2-15.7 [facility] Comment on above: Performed By: #### I ONCA #### [facility] [address] [place] [address] Immature Grans 0.30 % Normal [facility] Comment on above: Performed By: #### I ONCA #### [facility] [address] [place] [address] Lymphocytes (Bld) [#/Vol] 2.21 thou/cmm Normal 1.18-3.74 [facility] Comment on above: Performed By: #### I ONCA #### [facility] [address] [place] [address] Lymphocytes/100 WBC (Bld) 31.0 % Normal [facility] Comment on above: Performed By: #### I ONCA #### [facility] [address] [place] [address] MCH (RBC) [Entitic mass] 27.6 pg Normal 25.6-32.2 [facility] Comment on above: Performed By: #### I ONCA #### [facility] [address] [place] [address] MCHC (RBC) [Mass/Vol] 30.8 % Low 31.6-34.8 [facility] Comment on above: Performed By: #### I ONCA #### [facility] [address] [place] [address] MCV (RBC) [Entitic vol] 89.6 fL Normal 79.4-94.8 [facility] Comment on above: Performed By: #### I ONCA #### [facility] [address] [place] [address] Monocytes/100 WBC (Bld) 12.8 % Normal [facility] Comment on above: Performed By: #### I ONCA #### [facility] [address] [place] [address] Platelet mean volume (Bld) [Entitic vol] 11.7 fL Normal 9.4-12.3 [facility] Comment on above: Performed By: #### I ONCA #### [facility] [address] [place], [place] [address] Platelets (Bld) [#/Vol] 201 thou/cmm Normal 182-369 [facility] Comment on above: Performed By: #### I ONCA #### [facility] [address] [place] [address] RBC (Bld) [#/Vol] 4.31 mil/cmm Normal 3.93-5.22 [facility] Comment on above: Performed By: #### I ONCA #### [facility] [address] [place] [address] RDW SD 44.9 fl Normal 36.4-46.3 [facility] Comment on above: Performed By: #### I ONCA #### [facility] [address] [place] [address] Seg Neutrophil 53.2 % Normal [facility] Comment on above: Performed By: #### I ONCA #### [facility] [address] [place] [address] WBC (Bld) [#/Vol] 7.12 thou/cmm Normal 3.98-10.04 [facility] Comment on above: Performed By: #### I ONCA #### [facility] [address] [place] [address] Magnesium Bloodon 10-22-2019 Magnesium [Mass/Vol] 2.2 mg/dL Normal 1.6-2.6 [facility] Comment on above: Performed By: #### I ONCA #### [facility] [address] [place] [address] TSH, 3rd generationon 2019 TSH, 3rd generation 1.450 uIU/mL Normal 0.358-3.740 [facility] Comment on above: Performed By: #### I ONCA #### [facility] [address] [place], [place] [address] Basic Panelon 10-21-2019 Creatinine [Mass/Vol] 0.55 mg/dL Normal 0.51-0.95 [facility] Comment on above: Result Comment: Use of this assay is not recommended for patients undergoing treatment with phenindione, due to the potential for falsely depressed results. Performed By: #### C BCD1 #### [facility] [address] [place], [place] [address] Anion gap [Moles/Vol] 9 mmol/L Normal 8-16 [facility] Comment on above: Performed By: #### C BCD1 #### [facility] [address] [place], [place] [address] CO2 [Moles/Vol] 25 mmol/L Normal 21-32 [facility] Comment on above: Performed By: #### C BCD1 #### [facility] [address] [place], [place] [address] Glucose [Mass/Vol] 87 mg/dL Normal 70-99 [facility] Comment on above: Performed By: #### C BCD1 #### [facility] [address] [place], [place] [address] Urea nitrogen [Mass/Vol] 9 mg/dL Normal 7-18 [facility] Comment on above: Performed By: #### C BCD1 #### [facility] [address] [place], [place] [address] Calcium [Mass/Vol] 8.1 mg/dL Low 8.5-10.1 [facility] Comment on above: Performed By: #### C BCD1 #### [facility] [address] [place], [place] [address] Chloride [Moles/Vol] 112 mmol/L High 98-107 [facility] Comment on above: Performed By: #### C BCD1 #### [facility] [address] [place], [place] [address] Potassium [Moles/Vol] 3.5 mmol/L Normal 3.5-5.1 [facility] Comment on above: Performed By: #### C BCD1 #### [facility] [address] [place], [place] [address] Sodium [Moles/Vol] 142 mmol/L Normal 136-145 [facility] Comment on above: Performed By: #### C BCD1 #### [facility] [address] [place], [place] [address] CT BRAIN WO IVCONon 10-21-[address] BRAIN WO IVCON * * *Final Report* * * DATE OF EXAM: Oct 21 2019 2:33PM [facility] [id number] - CT BRAIN WO IVCON / PROCEDURE REASON: Stroke, follow up * * * * Physician Interpretation * * * * EXAMINATION: CT BRAIN WO IVCON CLINICAL HISTORY: Stroke, follow up TECHNIQUE: Serial axial images without IV contrast were obtained from the vertex to the foramen magnum. MQ: [id number] CT Dose-Length Product (DLP): 837 mGy*cm CT Dose Reduction Employed: Iterative recon COMPARISON: CT brain 10/20/2019 RESULT: Post-operative change: None. Acute change: No evidence of an acute infarct or other acute parenchymal process. Hemorrhage: Medial right cerebellar hemisphere parenchymal hemorrhage is stable in size with slightly decreased surrounding vasogenic edema. No new hemorrhage Mass Lesion / Mass Effect: There is no evidence of an intracranial mass or extraaxial fluid collection. No significant mass effect. Chronic change: Patchy foci of low attenuation coefficient are present within the supratentorial white matter which is a nonspecific finding but likely represents moderate to severe microvascular ischemia. Parenchyma: There is moderate generalized volume loss. The brain parenchyma is otherwise within normal limits for age. Ventricles: Ventricular enlargement concordant with the degree of parenchymal volume loss. Paranasal sinuses and skull base: The visualized paranasal sinuses are grossly clear. The skull base and imaged soft tissues are unremarkable. IMPRESSION: Stable size of right cerebellar parenchymal hemorrhage with slightly decreased surrounding vasogenic edema. No new intracranial findings. Cloud Automation Tester: PSCB Transcribe Date/Time: Oct 21 2019 2:37P Dictated by : EDY ALBA MD This examination was interpreted and the report reviewed and electronically signed by: EDY ALBA MD on Oct 21 2019 2:46PM EST Normal [facility] Hemogram/Diffon 10-21-2019 Abs Immature Grans 0.03 thou/cmm Normal 0.00-0.05 [facility] Comment on above: Performed By: #### C BCD1 #### [facility] [address] [place] [address] Abs Neut (ANC) 5.10 thou/cmm Normal 1.56-6.13 [facility] Comment on above: Performed By: #### C BCD1 #### [facility] [address] [place] [address] Abs. Baso 0.03 thou/cmm Normal 0.01-0.08 [facility] Comment on above: Performed By: #### C BCD1 #### [facility] [address] [place] [address] Abs. Greer 0.94 thou/cmm High 0.27-0.70 [facility] Comment on above: Performed By: #### C BCD1 #### [facility] [address] [place] [address] Basophils/100 WBC (Bld) 0.4 % Normal [facility] Comment on above: Performed By: #### C BCD1 #### [facility] [address] [place] [address] Eosinophils (Bld) [#/Vol] 0.07 thou/cmm Normal 0.00-0.31 [facility] Comment on above: Performed By: #### C BCD1 #### [facility] [address] [place] [address] Eosinophils/100 WBC (Bld) 0.9 % Normal [facility] Comment on above: Performed By: #### C BCD1 #### [facility] [address] [place] [address] Erythrocyte distribution width (RBC) [Ratio] 13.8 % Normal 11.7-14.4 [facility] Comment on above: Performed By: #### C BCD1 #### [facility] [address] [place] [address] Hematocrit (Bld) [Volume fraction] 34.5 % Normal 34.1-44.9 [facility] Comment on above: Performed By: #### C BCD1 #### [facility] [address] [place] [address] Hemoglobin (Bld) [Mass/Vol] 10.6 g/dL Low 11.2-15.7 [facility] Comment on above: Performed By: #### C BCD1 #### [facility] [address] [place], [place] [address] Immature Grans 0.40 % Normal [facility] Comment on above: Performed By: #### C BCD1 #### [facility] [address] [place], [place] [address] Lymphocytes (Bld) [#/Vol] 1.41 thou/cmm Normal 1.18-3.74 [facility] Comment on above: Performed By: #### C BCD1 #### [facility] [address] [place], [place] [address] Lymphocytes/100 WBC (Bld) 18.6 % Normal [facility] Comment on above: Performed By: #### C BCD1 #### [facility] [address] [place] [address] MCH (RBC) [Entitic mass] 27.2 pg Normal 25.6-32.2 [facility] Comment on above: Performed By: #### C BCD1 #### [facility] [address] [place], [place] [address] MCHC (RBC) [Mass/Vol] 30.7 % Low 31.6-34.8 [facility] Comment on above: Performed By: #### C BCD1 #### [facility] [address] [place] [address] MCV (RBC) [Entitic vol] 88.5 fL Normal 79.4-94.8 [facility] Comment on above: Performed By: #### C BCD1 #### [facility] [address] [place], [place] [address] Monocytes/100 WBC (Bld) 12.4 % Normal [facility] Comment on above: Performed By: #### C BCD1 #### [facility] [address] [place], [place] [address] Platelet mean volume (Bld) [Entitic vol] 11.2 fL Normal 9.4-12.3 [facility] Comment on above: Performed By: #### C BCD1 #### [facility] [address] [place], [place] [address] Platelets (Bld) [#/Vol] 201 thou/cmm Normal 182-369 [facility] Comment on above: Performed By: #### C BCD1 #### [facility] [address] [place] [address] RBC (Bld) [#/Vol] 3.90 mil/cmm Low 3.93-5.22 [facility] Comment on above: Performed By: #### C BCD1 #### [facility] [address] [place] [address] RDW SD 44.6 fl Normal 36.4-46.3 [facility] Comment on above: Performed By: #### C BCD1 #### [facility] [address] [place] [address] Seg Neutrophil 67.3 % Normal [facility] Comment on above: Performed By: #### C BCD1 #### [facility] [address] [place] [address] WBC (Bld) [#/Vol] 7.58 thou/cmm Normal 3.98-10.04 [facility] Comment on above: Performed By: #### C BCD1 #### [facility] [address] [place] [address] MRA BRAIN WO/W IVCONon 10-20 MRA BRAIN WO/W IVCON * * *Final Report* * * DATE OF EXAM: Oct 21 2019 2:13PM [facility] 0273 - MRA BRAIN WO/W IVCON / PROCEDURE REASON: Stroke, follow up * * * * Physician Interpretation * * * * EXAMINATION: MRI BRAIN WO/W IVCON, MRA BRAIN WO/W IVCON, MRA CAROTID WO/W IVCON CLINICAL HISTORY: dizziness, abnormal gait. F/U cerebellar hemorrhage TECHNIQUE: Routine noncontrast MRI brain protocol including diffusion images. Intracranial and extracranial 3D [id number] MRA. 3D maximum intensity projection images were created, reviewed and archived . MQ: MRAB_4 COMPARISON: CT brain 10/20/2019 RESULT: BRAIN: Acute Change: Focal restricted diffusion in the left coronal radiata is compatible with acute infarct. There is corresponding T2 hyperintensity. Hemorrhage: Redemonstration of T1 isointensity, T2 heterogeneously hypointense signal in the medial right cerebellar hemisphere, compatible with acute parenchymal hemorrhage. Mild surrounding vasogenic edema. Multifocal susceptibility artifact is noted in the left thalamus, left mesial temporal lobe, and bilateral cerebellar hemispheres, suggesting prior microhemorrhage, probably hypertensive. Mass Lesion/ Mass Effect: No evidence of an intracranial mass or extra-axial fluid collection. No significant mass effect. Chronic Change: Scattered patchy and confluent areas of increased T2 and FLAIR signal are present in the supratentorial white matter which is nonspecific but likely represents moderate to severe chronic microvascular ischemia. 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 Parenchyma: There is moderate generalized parenchymal volume loss. The brain parenchyma is otherwise within normal limits of signal intensity and morphology. Ventricles: Ventriculomegaly corresponds to the degree of parenchymal volume loss. Skull Base: Hypothalamic and pituitary region are grossly normal. Craniocervical junction is normal. No significant marrow replacement process. Vasculature: Major intracranial arterial structures, and dural venous sinuses show typical flow void, suggesting patency by spin echo criteria. Other: The visualized paranasal sinuses and mastoid air cells are clear. The orbits and extracranial soft tissues are unremarkable. Extracranial MRA: Carotid Stenosis: Right Common: No significant stenosis. Right Internal Plaque: Mild plaque formation at bifurcation and distal cervical ICA without significant stenosis. Right Internal Carotid Stenosis (% by NASCET Criteria): 0% Left Common: No significant stenosis. Left Internal Carotid Plaque: Mild plaque formation. Left Internal Carotid Stenosis (% by NASCET Criteria): 0% Cervical Vertebral Arteries: Patency: Bilateral Dominance: Codominant INTRACRANIAL MRA: There is focal high-grade stenosis in the proximal right VISION CARE ASSOCIATE P1 segment. The visualized distal vertebral and basilar arteries are otherwise patent. The distal ICAs are patent and within normal limits of caliber. The proximal ACAs, MCAs and city solicitor are patent and within normal limits of caliber and configuration. There is no evidence of aneurysm in the visualized vessels. IMPRESSION: Acute left galvez radiata lacunar infarct. Stable acute right cerebellar parenchymal hemorrhage. Right VISION CARE ASSOCIATE P1 segment focal high-grade stenosis. No other high-grade stenosis or aneurysm in the intracranial and extracranial circulations. Cloud Automation Tester: LYLA Transcribe Date/Time: Oct 21 2019 2:46P Dictated by : EDY ALBA MD This examination was interpreted and the report reviewed and electronically signed by: EDY ALBA MD on Oct 21 2019 3:01PM EST Normal [facility] MRA CAROTID WO/W IVCONon MRA CAROTID WO/W IVCON * * *Final Report * * * DATE OF EXAM: Oct 21 2019 2:13PM [facility] 0276 - MRA CAROTID WO/W IVCON / PROCEDURE REASON: Parenchymal hemorrhage proven * * * * Physician Interpretation * * * * EXAMINATION: MRI BRAIN WO/W IVCON, MRA BRAIN WO/W IVCON, MRA CAROTID WO/W IVCON CLINICAL HISTORY: dizziness, abnormal gait. F/U cerebellar hemorrhage TECHNIQUE: Routine noncontrast MRI brain protocol including diffusion images. Intracranial and extracranial 3D [id number] MRA. 3D maximum intensity projection images were created, reviewed and archived . MQ: MRAB_4 COMPARISON: CT brain 10/20/2019 RESULT: BRAIN: Acute Change: Focal restricted diffusion in the left coronal radiata is compatible with acute infarct. There is corresponding T2 hyperintensity. Hemorrhage: Redemonstration of T1 isointensity, T2 heterogeneously hypointense signal in the medial right cerebellar hemisphere, compatible with acute parenchymal hemorrhage. Mild surrounding vasogenic edema. Multifocal susceptibility artifact is noted in the left thalamus, left mesial temporal lobe, and bilateral cerebellar hemispheres, suggesting prior microhemorrhage, probably hypertensive. Mass Lesion/ Mass Effect: No evidence of an intracranial mass or extra-axial fluid collection. No significant mass effect. Chronic Change: Scattered patchy and confluent areas of increased T2 and FLAIR signal are present in the supratentorial white matter which is nonspecific but likely represents moderate to severe chronic microvascular ischemia. 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 Parenchyma: There is moderate generalized parenchymal volume loss. The brain parenchyma is otherwise within normal limits of signal intensity and morphology. Ventricles: Ventriculomegaly corresponds to the degree of parenchymal volume loss. Skull Base: Hypothalamic and pituitary region are grossly normal. Craniocervical junction is normal. No significant marrow replacement process. Vasculature: Major intracranial arterial structures, and dural venous sinuses show typical flow void, suggesting patency by spin echo criteria. Other: The visualized paranasal sinuses and mastoid air cells are clear. The orbits and extracranial soft tissues are unremarkable. Extracranial MRA: Carotid Stenosis: Right Common: No significant stenosis. Right Internal Plaque: Mild plaque formation at bifurcation and distal cervical ICA without significant stenosis. Right Internal Carotid Stenosis (% by NASCET Criteria): 0% Left Common: No significant stenosis. Left Internal Carotid Plaque: Mild plaque formation. Left Internal Carotid Stenosis (% by NASCET Criteria): 0% Cervical Vertebral Arteries: Patency: Bilateral Dominance: Codominant INTRACRANIAL MRA: There is focal high-grade stenosis in the proximal right VISION CARE ASSOCIATE P1 segment. The visualized distal vertebral and basilar arteries are otherwise patent. The distal ICAs are patent and within normal limits of caliber. The proximal ACAs, MCAs and city solicitor are patent and within normal limits of caliber and configuration. There is no evidence of aneurysm in the visualized vessels. IMPRESSION: Acute left galvez radiata lacunar infarct. Stable acute right cerebellar parenchymal hemorrhage. Right VISION CARE ASSOCIATE P1 segment focal high-grade stenosis. No other high-grade stenosis or aneurysm in the intracranial and extracranial circulations. Cloud Automation Tester: LYLA Transcribe Date/Time: Oct 21 2019 2:46P Dictated by : EDY ALBA MD This examination was interpreted and the report reviewed and electronically signed by: EDY ALBA MD on Oct 21 2019 3:01PM EST Normal [facility] MRI BRAIN WO/W IVCONon 10-20 MRI BRAIN WO/W IVCON * * *Final Report* * * DATE OF EXAM: Oct 21 2019 2:13PM [facility] [id number] - MRI BRAIN WO/W IVCON / PROCEDURE REASON: Stroke, follow up * * * * Physician Interpretation * * * * EXAMINATION: MRI BRAIN WO/W IVCON, MRA BRAIN WO/W IVCON, MRA CAROTID WO/W IVCON CLINICAL HISTORY: dizziness, abnormal gait. F/U cerebellar hemorrhage TECHNIQUE: Routine noncontrast MRI brain protocol including diffusion images. Intracranial and extracranial 3D [id number] MRA. 3D maximum intensity projection images were created, reviewed and archived . MQ: MRAB_4 COMPARISON: CT brain 10/20/2019 RESULT: BRAIN: Acute Change: Focal restricted diffusion in the left coronal radiata is compatible with acute infarct. There is corresponding T2 hyperintensity. Hemorrhage: Redemonstration of T1 isointensity, T2 heterogeneously hypointense signal in the medial right cerebellar hemisphere, compatible with acute parenchymal hemorrhage. Mild surrounding vasogenic edema. Multifocal susceptibility artifact is noted in the left thalamus, left mesial temporal lobe, and bilateral cerebellar hemispheres, suggesting prior microhemorrhage, probably hypertensive. Mass Lesion/ Mass Effect: No evidence of an intracranial mass or extra-axial fluid collection. No significant mass effect. Chronic Change: Scattered patchy and confluent areas of increased T2 and FLAIR signal are present in the supratentorial white matter which is nonspecific but likely represents moderate to severe chronic microvascular ischemia. 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 Parenchyma: There is moderate generalized parenchymal volume loss. The brain parenchyma is otherwise within normal limits of signal intensity and morphology. Ventricles: Ventriculomegaly corresponds to the degree of parenchymal volume loss. Skull Base: Hypothalamic and pituitary region are grossly normal. Craniocervical junction is normal. No significant marrow replacement process. Vasculature: Major intracranial arterial structures, and dural venous sinuses show typical flow void, suggesting patency by spin echo criteria. Other: The visualized paranasal sinuses and mastoid air cells are clear. The orbits and extracranial soft tissues are unremarkable. Extracranial MRA: Carotid Stenosis: Right Common: No significant stenosis. Right Internal Plaque: Mild plaque formation at bifurcation and distal cervical ICA without significant stenosis. Right Internal Carotid Stenosis (% by NASCET Criteria): 0% Left Common: No significant stenosis. Left Internal Carotid Plaque: Mild plaque formation. Left Internal Carotid Stenosis (% by NASCET Criteria): 0% Cervical Vertebral Arteries: Patency: Bilateral Dominance: Codominant INTRACRANIAL MRA: There is focal high-grade stenosis in the proximal right VISION CARE ASSOCIATE P1 segment. The visualized distal vertebral and basilar arteries are otherwise patent. The distal ICAs are patent and within normal limits of caliber. The proximal ACAs, MCAs and city solicitor are patent and within normal limits of caliber and configuration. There is no evidence of aneurysm in the visualized vessels. IMPRESSION: Acute left galvez radiata lacunar infarct. Stable acute right cerebellar parenchymal hemorrhage. Right VISION CARE ASSOCIATE P1 segment focal high-grade stenosis. No other high-grade stenosis or aneurysm in the intracranial and extracranial circulations. Cloud Automation Tester: PSCB Transcribe Date/Time: Oct 21 2019 2:46P Dictated by : EDY ALBA MD This examination was interpreted and the report reviewed and electronically signed by: EDY ALBA MD on Oct 21 2019 3:01PM EST Normal [facility] Magnesium Bloodon 10-21-2019 Magnesium [Mass/Vol] 2.0 mg/dL Normal 1.6-2.6 [facility] Comment on above: Performed By: #### C BCD1 #### [facility] [address] [place] [address] Phosphorus Bloodon 0 Phosphate [Mass/Vol] 6.7 mg/dL High 2.5-4.9 [facility] Comment on above: Performed By: #### C BCD1 #### [facility] [address] [place] [address] ABO/Rh Confirmationon 2019 ABO group Nom (Bld) A Normal [facility] Comment on above: Performed By: #### C BCD1 #### [facility] [address] [place] [address] RH Type Positive Normal [facility] Comment on above: Performed By: #### C BCD1 #### [facility] [address] [place] [address] Activated PTTon 10-20-2019 aPTT Coag (Bld) [Time] 22.8 s Low 23.0-32.4 [facility] Comment on above: Result Comment: Unfr actionated Heparin Therapeutic Ranges: Standard Heparin Nomogram: 53 to 78 seconds (anti-Xa level of 0.3 to 0.7 U/mL) Low Dose/ACS Nomogram: 49 to 67 seconds (anti-Xa level of 0.2 to 0.5 U/mL) Stroke Treatment Nomogram: 49 to 67 seconds (anti-Xa level of 0.2 to 0.5 U/mL) Note: The APTT therapeutic range has been determined for the current lot of laboratory APTT reagent in use throughout the [facility]. Performed By: #### A PTT #### [facility] [address] [place] [address] [address] BRAIN WO IVCONon 10-20-[address] BRAIN WO IVCON * * *Final Report* * * DATE OF EXAM: Oct 20 2019 9:42PM [facility] [id number] - CT BRAIN WO IVCON / PROCEDURE REASON: Intracranial hemorrhage * * * * Physician Interpretation * * * * EXAMINATION: CT BRAIN WO IVCON CLINICAL HISTORY: Intracranial hemorrhage, follow-up TECHNIQUE: Serial axial images without IV contrast were obtained from the vertex to the foramen magnum. MQ: CTBWO_3 CT Dose-Length Product (DLP): 827 mGy*cm CT Dose Reduction Employed: Iterative recon COMPARISON: 10/20/2019 RESULT: Post-operative change: None. Acute change: No evidence of an acute infarct or other acute parenchymal process. Hemorrhage: There is again noted to be an area of acute parenchymal hemorrhage involving the right cerebellar hemisphere medially. This is similar in size compared to the recent prior examination. There is mild surrounding edema, without significant mass effect. No additional acute intracranial hemorrhage is identified. Mass Lesion / Mass Effect: There is no evidence of an intracranial mass or extraaxial fluid collection. No significant mass effect. Chronic change: Patchy foci of low attenuation coefficient are present within the supratentorial white matter which is a nonspecific finding but likely represents moderate microvascular ischemia. Parenchyma: There is moderate generalized volume loss. The brain parenchyma is otherwise within normal limits for age. Ventricles: The ventricles are within normal limits of size and configuration for age. Paranasal sinuses and skull base: The visualized paranasal sinuses are grossly clear. The skull base and imaged soft tissues are unremarkable. IMPRESSION: Stable appearance of acute hemorrhage in the right cerebellar hemisphere as above. Moderate volume loss and chronic small vessel ischemic change. Cloud Automation Tester: PSCBrenda Transcribe Date/Time: Oct 20 2019 10:05P Dictated by : TOMMY PATTERSON MD This examination was interpreted and the report reviewed and electronically signed by: TOMMY PATTERSON MD on Oct 20 2019 10:10PM EST Normal [facility] CT-Brain/Head without Contra st IMPORTon 10-20-2019 CT-Brain/Head without Contrast IMPORT Images were obtained outside of [facility] Normal [facility] Comprehensive Panelon 2019 ALP [Catalytic activity/Vol] 72 U/L Normal 45-117 [facility] Comment on above: Performed By: #### P 14 #### [address] [address] Bilirubin [Mass/Vol] 0.4 mg/dL Normal 0.2-1.0 [facility] Comment on above: Result Comment: Use of this assay is not recommended for patients undergoing treatment with eltrombopag due to the potential for falsely elevated results. Performed By: #### P 14 #### [address], [place] [address] Protein [Mass/Vol] 6.7 g/dL Normal 6.4-8.2 [facility] Comment on above: Performed By: #### P 14 #### [facility] [address] [place], [place] [address] Creatinine [Mass/Vol] 0.48 mg/dL Low 0.51-0.95 [facility] Comment on above: Result Comment: Use of this assay is not recommended for patients undergoing treatment with phenindione, due to the potential for falsely depressed results. Performed By: #### P 14 #### [facility] [address] [place], [place] [address] ALT [Catalytic activity/Vol] 23 U/L Normal 12-78 [facility] Comment on above: Performed By: #### P 14 #### [facility] [address] [place], [place] [address] AST [Catalytic activity/Vol] 21 U/L Normal 15-37 [facility] Comment on above: Performed By: #### P 14 #### [facility] [address] [place], [place] [address] Albumin [Mass/Vol] 3.4 g/dL Normal 3.4-5.0 [facility] Comment on above: Performed By: #### P 14 #### [facility] [address] [place], [place] [address] Anion gap [Moles/Vol] 7 mmol/L Low 8-16 [facility] Comment on above: Performed By: #### P 14 #### [facility] [address] [place], [place] [address] Calcium [Mass/Vol] 8.4 mg/dL Low 8.5-10.1 [facility] Comment on above: Performed By: #### P 14 #### [facility] [address] [place], [place] [address] CO2 [Moles/Vol] 25 mmol/L Normal 21-32 [facility] Comment on above: Performed By: #### P 14 #### [facility] [address] [place], [place] [address] Glucose [Mass/Vol] 99 mg/dL Normal 70-99 [facility] Comment on above: Performed By: #### P 14 #### [facility] [address] [place] [address] Urea nitrogen [Mass/Vol] 15 mg/dL Normal 7-18 [facility] Comment on above: Performed By: #### P 14 #### [facility] [address] [place] [address] Chloride [Moles/Vol] 109 mmol/L High 98-107 [facility] Comment on above: Performed By: #### P 14 #### [facility] [address] [address] Potassium [Moles/Vol] 3.5 mmol/L Normal 3.5-5.1 [facility] Comment on above: Performed By: #### P 14 #### [facility] [address] [place] [address] Sodium [Moles/Vol] 137 mmol/L Normal 136-145 [facility] Comment on above: Performed By: #### P 14 #### [facility] [address] [address] Hemogram/Diffon 10-20-2019 Abs Immature Grans 0.06 thou/cmm High 0.00-0.05 [facility] Comment on above: Performed By: #### C BCD1 #### [facility] [address] [address] Abs Neut (ANC) 9.32 thou/cmm High 1.56-6.13 [facility] Comment on above: Performed By: #### C BCD1 #### [facility] [address] [address] Abs. Baso 0.03 thou/cmm Normal 0.01-0.08 [facility] Comment on above: Performed By: #### C BCD1 #### [facility] [address] [address] Abs. Greer 0.76 thou/cmm High 0.27-0.70 [facility] Comment on above: Performed By: #### C BCD1 #### [facility] [address] [place], [place] [address] Basophils/100 WBC (Bld) 0.3 % Normal A [facility] Comment on above: Performed By: #### C BCD1 #### [facility] [address] [place], [place] [address] Eosinophils (Bld) [#/Vol] 0.01 thou/cmm Normal 0.00-0.31 [facility] Comment on above: Performed By: #### C BCD1 #### [facility] [address] [place], [place] [address] Eosinophils/100 WBC (Bld) 0.1 % Normal [facility] Comment on above: Performed By: #### C BCD1 #### [facility] [address] [place], [place] [address] Erythrocyte distribution width (RBC) [Ratio] 13.5 % Normal 11.7-14.4 [facility] Comment on above: Performed By: #### C BCD1 #### [facility] [address] [place], [place] [address] Hematocrit (Bld) [Volume fraction] 36.5 % Normal 34.1-44.9 [facility] Comment on above: Performed By: #### C BCD1 #### [facility] [address] [place], [place] [address] Hemoglobin (Bld) [Mass/Vol] 11.5 g/dL Normal 11.2-15.7 [facility] Comment on above: Performed By: #### C BCD1 #### [facility] [address] [place], [place] [address] Immature Grans 0.50 % Normal [facility] Comment on above: Performed By: #### C BCD1 #### [facility] [address] [place], [place] [address] Lymphocytes (Bld) [#/Vol] 0.84 thou/cmm Low 1.18-3.74 [facility] Comment on above: Performed By: #### C BCD1 #### [facility] [address] [place], [place] [address] Lymphocytes/100 WBC (Bld) 7.6 % Normal [facility] Comment on above: Performed By: #### C BCD1 #### [facility] [address] [place], [place] [address] MCH (RBC) [Entitic mass] 27.6 pg Normal 25.6-32.2 [facility] Comment on above: Performed By: #### C BCD1 #### [facility] [address] [place], [place] [address] MCHC (RBC) [Mass/Vol] 31.5 % Low 31.6-34.8 [facility] Comment on above: Performed By: #### C BCD1 #### [facility] [address] [place], [place] [address] MCV (RBC) [Entitic vol] 87.7 fL Normal 79.4-94.8 [facility] Comment on above: Performed By: #### C MARILIND1 #### [facility] [address] [place], [place] [address] Monocytes/100 WBC (Bld) 6.9 % Normal [facility] Comment on above: Performed By: #### C BCD1 #### [facility] [address] [place], [place] [address] Platelet mean volume (Bld) [Entitic vol] 11.2 fL Normal 9.4-12.3 [facility] Comment on above: Performed By: #### C BCD1 #### [facility] [address] [place], [place] [address] Platelets (Bld) [#/Vol] 210 thou/cmm Normal 182-369 [facility] Comment on above: Performed By: #### C BCD1 #### [facility] [address] [place], [place] [address] RBC (Bld) [#/Vol] 4.16 mil/cmm Normal 3.93-5.22 [facility] Comment on above: Performed By: #### C BCD1 #### [facility] [address] [place], [place] [address] RDW SD 43.6 fl Normal 36.4-46.3 [facility] Comment on above: Performed By: #### C STEW #### [facility] [address] [place], [place] [address] Seg Neutrophil 84.6 % Normal [facility] Comment on above: Performed By: #### C BCD1 #### [facility] [address] [place] [address] WBC (Bld) [#/Vol] 11.02 thou/cmm High 3.98-10.04 [facility] Comment on above: Performed By: #### C BCD1 #### [place] [address] Ionized Calciumon 10-20-2019 Ionized Ca,PH7.4 4.58 mg/dL Low 4.61-5.17 [facility] Comment on above: Performed By: #### I ONCA #### [place] [address] pH (Bld) 7.405 [pH] Normal 7.320-7.430 [facility] Comment on above: Performed By: #### I ONCA #### [place] [address] Ionized Calcium 4.57 mg/dL Low 4.61-5.17 [facility] Comment on above: Performed By: #### I ONCA #### [place] [address] MRSA Screenon 10-20-2019 MRSA DNA ADAM+probe Ql (Unsp spec) Test performed at [facility] No MRSA detected. Normal [facility] Comment on above: Performed By: #### I ONCA #### [place] [address] Magnesium Bloodon 10-20-2019 Magnesium [Mass/Vol] 2.1 mg/dL Normal 1.6-2.6 [facility] Comment on above: Performed By: #### M AG #### [place] [address] Phosphorus Bloodon 0 Phosphate [Mass/Vol] 2.3 mg/dL Low 2.5-4.9 [facility] Comment on above: Performed By: #### P HOS #### [place] [address] Protimeon 10-20-2019 INR Coag (PPP) [Relative time] 1.00 {INR} Normal 0.90-1.30 [facility] Comment on above: Result Comment: Sowmya min K Antagonist (VKA) Therapeutic Range: INR 2 to 3 (Target INR of 2.5) Note: For patients treated with VKA drugs, such as warfarin, the [employer] 2012 Guideline recommends a therapeutic INR range of 2 to 3 (target INR of 2.5). This recommendation includes high-risk patients with antiphospholipid syndrome with previous arterial or venous thromboembolism, current-generation mechanical or bioprosthetic aortic heart valve replacement. Note: Patients with mechanical aortic valve replacement and additional risk factors for thromboembolic events (atrial fibrillation, previous thromboembolism, LV dysfunction, hypercoagulable conditions) or an older generation mechanical AVR (i.e., ball in-Cage) or any mechanical MVR should have a INR therapeutic range of 2.5 to 3.5 target INR of 3). [place] GH, et al. Chest 2012; 141:7S-47S Alejandro RA et al. [facility] 2017; 70: 252-289 Performed By: #### P T #### [place] [address] PT Coag (PPP) [Time] 10.8 s Normal 9.7-13.0 [facility] Comment on above: Performed By: #### P T #### [place] [address] Type and Screenon 10-20-2019 Comment See Below Normal [facility] Comment on above: Result Comment: Scre en &/or Xmatch expires in 3 days at 12 midnight. Redraw patient at that time. Performed By: #### T &S #### [place] [address] ABO group Nom (Bld) A Normal [facility] Comment on above: Performed By: #### T &S #### [place] [address] RH Type Positive Normal [facility] Comment on above: Performed By: #### T &S #### [place] [address] XR CHEST 1V FRONTALon 2019 XR CHEST 1V FRONTAL * * *Final Report* * * DATE OF EXAM: Oct 20 2019 7:37PM [id number] [id number] - XR CHEST 1V FRONTAL / PROCEDURE REASON: Acute respiratory illness * * * * Physician Interpretation * * * * EXAMINATION: CHEST RADIOGRAPH (SINGLE VIEW AP OR PA) CLINICAL HISTORY: Acute respiratory illness MQ: XC1_5 Comparison: 01/24/2017 RESULT: Lines, tubes, and devices: None. Lungs and pleura: No consolidation. No lung mass. No pleural effusion. Cardiomediastinal silhouette: Normal cardiomediastinal silhouette. Other: None IMPRESSION: No acute radiographic abnormality. Cloud Automation Tester: PSCB Transcribe Date/Time: Oct 20 2019 8:04P Dictated by : DANDRE PRETTY MD This examination was interpreted and the report reviewed and electronically signed by: DANDRE PRETTY MD on Oct 20 2019 8:05PM EST Normal [facility] Culture, urine Bacteria identified Cx Nom (U) Presumptive E. coli [facility] Work Phone: Vital Signs Date Time Vital Sign Value Performing Clinician Faci lity 09-19-2022 10:37-0500 Body height 147.[address] Fercho Whitehead Work Phone: [facility] Encounters Encounter Date Encounter Type Care Provider Facility Start: 02-18-2025 ambulatory Arnulfo ASHFORD Fa cility:[facility] Start: 01-07-2025 ambulatory Arnulfo ASHFORD Fa cility:[facility] Start: 12-03-2024 End: 12-03-[address] Fercho Whitehead DO Work Phone: [facility] Work Phone: Start: 12-03-2024 End: 12-03-2024 [facility] Start: 12-03-2024 [facility] Start: 12-03-2024 End: 12-03-2024 ambulatory Arnulfo ASHFORD Facility:[facility] Start: 11-26-2024 End: 11-26-[address] Fercho Whitehead DO Work Phone: [facility] Work Phone: Start: 11-26-2024 End: 11-26-2024 Departed Referred Arnulfo [facility] Start: 11-26-2024 End: 11-26-2024 ambulatory Arnulfo ASHFORD Facility:[facility] Start: 11-05-2024 End: 11-05-[address] Fercho Whitehead DO Work Phone: [facility] Work Phone: Start: 11-05-2024 End: 11-05-2024 Departed Referred Arnulfo [facility] Start: 11-05-2024 Registered Referred Arnulfo [facility] Start: 11-04-2024 End: 11-05-2024 ambulatory Fercho Whitehead Facility:[facility] Start: 11-04-2024 End: 11-04-[address] Arnulfo English MD -[facility] Work Phone: Start: 10-15-2024 End: 10-15-[address] Fercho Whitehead DO Work Phone: [facility] Work Phone: Start: 10-15-2024 End: 10-15-2024 Departed Referred Arnulfo [facility] Start: 10-15-2024 End: 10-15-2024 ambulatory Fercho Whitehead Facility:[facility] Start: 09-03-2024 End: 09-03-2024 Departed Referred Arnulfo [facility] Start: 09-03-2024 End: 09-03-2024 ambulatory Fercho Whitehead Facility:[facility] Start: 06-02-2024 ambulatory Fercho Whitehead Facilit y:[facility] Start: 04-22-2024 End: 04-22-2024 ambulatory Fercho Whitehead Facility:[facility] Start: 04-10-2024 End: 04-10-2024 ambulatory Celia Reed EMERALD Facility:[facility] Start: 04-09-2024 ambulatory Fercho Whitehead Facilit y:[facility] Start: 04-01-2024 End: 04-01-2024 ambulatory Fercho Whitehead Facility:[facility] Start: 03-24-2024 End: 03-25-2024 ambulatory Fercho Whitehead Facility:[facility] Start: 11-26-2023 End: 11-26-[address] Fecrho Whitehead Work Phone: [facility] Work Phone: Start: 11-26-2023 End: 11-26-[address] Fercho Whitehead Work Phone: [facility] Start: 11-26-[address] Fercho Whitehead Work Phone: [facility] Start: 11-24-2023 End: 11-24-[address] Fercho Whitehead Work Phone: [facility] Work Phone: Start: 11-24-2023 End: 11-24-[address] Fercho Whitehead Work Phone: [facility] Start: 11-06-2023 End: 11-06-[address] Fercho Whitehead Work Phone: [facility] Work Phone: Start: 10-10-2023 End: 10-10-2023 ambulatory [facility] Work Phone: Start: 10-10-2023 End: 10-10-2023 Departed Referred [facility] Start: 10-01-2023 End: 10-01-2023 ambulatory [facility] Work Phone: Start: 10-01-2023 End: 10-01-2023 Departed Referred [facility] Start: 10-01-2023 Registered Referred [facility] Start: 09-05-2023 End: 09-05-2023 ambulatory [facility] Work Phone: Start: 09-05-2023 End: 09-05-2023 Departed Referred [facility] Start: 07-04-2023 End: 07-04-2023 ambulatory [facility] Work Phone: Start: 07-04-2023 End: 07-04-2023 Departed Referred [facility] Start: 05-23-2023 End: 05-23-2023 ambulatory [facility] Work Phone: Start: 05-23-2023 End: 05-23-2023 Departed Referred [facility] Start: 02-21-2023 End: 02-21-2023 Departed Referred [facility] Start: 01-09-2023 End: 01-09-2023 ambulatory [facility] Work Phone: Start: 01-09-2023 End: 01-09-2023 Departed Referred [facility] Start: 12-12-2022 End: 12-12-[address] Fercho Whitehead Work Phone: [facility] Work Phone: Start: 12-12-2022 End: 12-12-[address] Fercho Whitehead Work Phone: [facility] Start: 11-14-2022 End: 11-14-[address] Fercho Whitehead Work Phone: [facility] Work Phone: Start: 11-14-2022 End: 11-14-[address] Fercho Whitehead Work Phone: [facility] Start: 10-17-[address] Fercho Whitehead Work Phone: [facility] Start: 09-12-2022 End: 09-12-[address] Fercho Whitehead Work Phone: [facility] Start: 09-12-2022 End: 09-12-[address] Fercho Whitehead Work Phone: [facility] Work Phone: Start: 09-12-2022 End: 09-12-[address] Fercho Whitehead Work Phone: [facility] Start: 08-15-[address] Fercho Whitehead Work Phone: [facility] Start: 07-14-2022 End: 07-14-[address] Fercho Whitehead Work Phone: [facility] Start: 07-11-2022 End: 07-11-[address] Fercho Whitehead Work Phone: [facility] Work Phone: Start: 07-11-2022 End: 07-11-[address] Fercho Whitehead Work Phone: [facility] Start: 06-13-2022 End: 06-13-2022 ambulatory [facility] Work Phone: Start: 06-13-2022 End: 06-13-2022 Departed Referred [facility] Start: 05-16-2022 End: 05-16-2022 Departed Referred [facility] Start: 05-15-2022 End: 05-15-2022 ambulatory KATHY BROWN Facility:[facility] Start: 04-25-2022 End: 04-25-2022 ambulatory [facility] Work Phone: Start: 04-25-2022 End: 04-25-2022 Departed Referred [facility] Start: 04-25-2022 Registered Referred [facility] Start: 04-11-2022 End: 04-11-2022 ambulatory [facility] Work Phone: Start: 04-11-2022 End: 04-11-2022 Departed Referred [facility] Start: 03-14-2022 End: 03-14-2022 Departed Referred [facility] Start: 03-08-2022 End: 03-08-2022 Departed Referred [facility] Start: 02-14-2022 End: 02-14-2022 Departed Referred [facility] Start: 01-10-2022 End: 01-10-2022 Departed Referred [facility] Start: 12-13-2021 End: 12-13-2021 Departed Referred [facility] Start: 12-13-2021 Registered Referred [facility] Start: 11-08-2021 End: 11-08-2021 Departed Referred [facility] Start: 11-08-2021 Registered Referred [facility] Start: 10-11-2021 End: 10-11-2021 Departed Referred [facility] Start: 10-11-2021 Registered Referred [facility] Start: 09-13-2021 End: 09-13-2021 Departed Referred [facility] Start: 08-16-2021 End: 08-16-2021 Departed Referred [facility] Procedures Date Procedure Procedure Detail Performing Clinician Start: 09-03-2024 Measurement of renal function Dr. Fercho Whitehead DO Work Phone: Comment on above: GFR Calc Start: 11-24-[address] Alexandr Whitehead Work Phone: Start: 10-20-2019 Antibody screen Comment on above: Performed By: #### T &S #### [address] [address] Urine culture Immunizations Immunization Date Immunization Notes Care Provider Fa cility 11-18-2020 Covar ([facility]) [facility] 10-18-2020 Covid ([facility]) [facility] 06-18-2019 Influenza virus vaccine [facility] Payers Date Payer Category Payer Self-pay [id number] 2015 Private Health Insurance [id number] 2000 Medicare [id number] Unknown [id number] 2.16.8 [id number] Unknown [id number] 2.16.8 [id number] Unknown [id number] 2.16.8 [id number] Unknown [id number] 2.16.8 [id number] Unknown [id number] 2.16.8 [id number] Unknown [id number] 2.16.8 [id number] Unknown [id number] 2.16.8 [id number] Unknown [id number] 2.16.8 [id number] Unknown [id number] 2.16.8 [id number] Unknown [id number] 2.16.8 [id number] Unknown [id number] 2.16.8 [id number] Unknown [id number] 2.16.8 [id number] Unknown [id number] 2.16.8 [id number] Unknown [id number] 2.16.8 [id number] Unknown [id number] 2.16.8 [id number] Social History Date Type Detail Facility Start: 03-30-2021 End: 09-19-2022 Tobacco smoking status MOIS Unknown if ever smoked [facility] Start: 10-24-2019 None [facility] Start: 10-24-2019 Alone;- [facility] Start: 11-01-2019 Non-smoker [facility] Start: 1935 Sex Assigned At Female [facility] Start: 09-19-2022 Tobacco smoking stat us [facility] Never smoked tobacco (finding) [facility] Start: 11-20-2024 End: 11-21-2024 Sex Female (finding) [facility] Medical Equipment Procedure Code Equipment Code Equipment Origin al Text Equipment Identifier Dates ORIF, hip, using Gamma nail ([id number]) Orthopaedic bone screw, non-bioabsorbable, sterile ()[id number] FDA Start: 03-07-2021 ORIF, hip, using Gamma nail ([id number]) Femur nail, sterile ()[id number] 8 FDA Start: 03-07-2021 ORIF, hip, using Gamma nail ([id number]) Orthopaedic bone screw, non-bioabsorbable, sterile ([id number] 8 FDA Start: 03-07-2021 Progress note 05-15-2022 Note Date & Type Note Facility 05-15-2022 Note HNO ID: [id number] Author: Kathy Brown APRN.HOG OPERATOR Service: ? Author Type: Nurse Practitioner Type: Progress Notes Filed: 05/17/2022 9:25 AM Note Text: [facility] Initial Visit CEREBROVASCULAR HISTORY Junie Wick is a 86 year old female who presents for a neurological evaluation. Previous patient of Dr. Hanks in [place] Previous visit with Dr. 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 May have been a transient hypertensive spike at the time. Recovered well with no other issues. Continue with aspirin monotherapy, which will likely be keyliner. Continue to keep close tab on BP Since last visit, Ms Wick reports no interval new symptoms. She is [...] Procedure Laterality Date COLONOSCOP W/ OR W/O [facility] SPEC 06/24/2001 sigmoidoscopy PAST SURGICAL HISTORY OF [...] vibration. Coordination: Rapid alternating movements symmetric bilaterally. Jvjszc-vq-lzas, uvsw-lc-obam without dysmetria bilaterally. Reflexes: 2+/4 reflexes symmetric bilaterally. Plantar response is flexor bilaterally. Gait: Narrow-based, normal spaced and stable withou (more content not included)... [facility] Progress note 06-28-2021 Note Date & Type Note Facility 06-28-2021 Note HNO ID: [id number] Author: Daiana Brown APRN.HOG OPERATOR Service: ? Author Type: Nurse Practitioner Type: Progress Notes Filed: 06/28/2021 1:39 PM Note Text: Neurology Follow Up Note Date: June 28, 2021 Patient Name: Junie Wick HPI: This is Ms. Junie Wick a 85 year old female who presents to [facility] for follow up of CVA. Pt [...] Size: Regular Adult) Pulse 65 Ht 5' 1" (1.549 m) Wt 120 lb (54.4 kg) [...] - target ideal body weight and girth <35" for women, <40" for men Diabetes - Target <6.5-7% Smoking - Target smoking cessation Hyperlipidemia - Target total cholesterol < 200, Target LDL <100, < 70 for high risk, Target HDL >45 for men, >55 for women, Target triglycerides <150 Daiana Brown APRN.HOG OPERATOR [facility], Department of Neurology [facility] Evaluation note Note Date & Type Note Facility Evaluation note No assessment information availa ble [facility] Work Phone: Reason for referral (narrative) Note Date & Type Note Facility Reason for referral (narrative) No reason for referral information available [facility] Work Phone: Summary Purpose Family History No Family History Records Found Relationship Condition Age at Onset Recorded Date/T mara Not Specified Arthritis Unknown Advance Directives No Advanced Directives Records Found Advance Directive Response Recorded Date/ Time Living Will Yes March 08, 2021 4:33pm Power of Supervisor [facility] Yes March 08 4:33pm Advance Directive Response Recorded Date/ Time Living Will Yes March 08, 2021 3:33pm Power of Supervisor [facility] Yes March 08 3:33pm Advance Directive Response Recorded Date/ Time Living Will Yes September 19 10:37am Power of Supervisor [facility] Yes September 19, 2022 10:37am Advance Directive Response Recorded Date/ Time Living Will Yes September 19 11:37am Power of Supervisor [facility] Yes September 19, 2022 11:37am Chief Complaint and Reason for Visit Chief Complaint [facility] Chief Complaint [facility] Chief Complaint [facility] K [facility] Chief Complaint [facility] Chief Complaint [facility] Chief Complaint [facility] Chief Complaint [facility] Chief Complaint [facility] Chief Complaint [facility] ACUTE CARE VISIT Chief Complaint [facility] ACUTE CARE VISIT [facility] NEW CONCERN/PROBLEM Chief Complaint [facility] NEW CONCERN/PROBLEM [facility] Chief Complaint [facility] NEW CONCERN/PROBLEM [facility] Chief Complaint [facility] K [facility] Chief Complaint [facility] Chief Complaint [facility] Chief Complaint [facility] Chief Complaint [facility] K [facility]WORK [facility] ANNUAL EXAM LABWORK Chief Complaint [facility] K LABWORK [facility] ANNUAL EXAM LABWORK LABWORK Chief Complaint Admit Date [facility] September 03, 2024 5:00am [facility] October 15 5:00am ANNUAL EXAM November 04, 2024 12: 32pm LABWORK November 05, 2024 5:0 0am Chief Complaint Admit Date [facility] September 03, 2024 5:00am [facility] October 15 5:00am ANNUAL EXAM November 04, 2024 12: 32pm LABWORK November 05, 2024 5:0 0am [facility] November 26, 2024 5: 00am Chief Complaint Admit Date [facility] September 03, 2024 5:00am [facility] October 15 5:00am ANNUAL EXAM November 04, 2024 12: 32pm LABWORK November 05, 2024 5:0 0am [facility] November 26, 2024 5: 00am [facility] December 03, 2024 5 :00am Additional Source Comments INFORMATION SOURCE (unrecogn ized section and content) DATE CREATED AUTHOR 05/18/2020 [facility] DATE CREATED AUTHOR AUTHOR'S ORGANIZ ATION 06/29/2021 [facility] DATE CREATED AUTHOR AUTHOR'S ORGANIZ ATION 05/22/2022 [facility] DATE CREATED AUTHOR AUTHOR'S ORGANIZ ATION 02/20/2025 [facility] Goals (unrecognized section and content) Goals may be documented in a n alternate sectionGoals may be documented in an alternate sectionGoals may be documented in an alternate sectionGoals may be documented in an alternate sectionGoals may be documented in an alternate sectionGoals may be documented in an alternate sectionGoals may be documented in an alternate sectionGoals may be documented in an alternate sectionGoals may be documented in an alternate sectionGoals may be documented in an alternate sectionGoals may be documented in an alternate sectionGoals may be documented in an alternate sectionGoals may be documented in an alternate sectionGoals may be documented in an alternate sectionGoals may be documented in an alternate sectionGoals may be documented in an alternate sectionGoals may be documented in an alternate sectionGoals may be documented in an alternate sectionGoals may be documented in an alternate sectionGoals may be documented in an alternate sectionGoals may be documented in an alternate sectionGoals may be documented in an alternate sectionGoals may be documented in an alternate sectionGoals may be documented in an alternate sectionGoals may be documented in an alternate section Care Teams (unrecognized sec tion and content) Team Status: Active Member Role Status Dates Dr. Fercho Whitehead , DO Family Provider Active Dr. Fercho Whitehead , DO Primary Care Provider Active Team Status: Inactive Member Role Status Dates Dr. Fercho Whitehead DO Primary Care Provider Active Celia Reed [employer] SERVICE KITCHEN SUPERVISOR, FOOD SERVICE KITCHEN SUPERVISOR-C Attending Provider Active Team Status: Inactive Member Role Status Dates Dr. Fercho Whitehead DO Primary Care Provider Active Billy Loja MD Attending Provider Active Team Status: Active Member Role Status Dates Dr. Fercho Whitehead DO Primary Care Provider Active Arnulfo English MD Attending Provider Active Team Status: Active Member Role Status Dates Dr. Fercho Whitehead DO Primary Care Provider Active Arnulfo ASHFORD MD Attending Provider Active Team Status: Inactive Member Role Status Dates Dr. Fercho Whitehead DO Primary Care Provider Active Billy ASHFORD MD Attending Provider Active Team Status: Inactive Member Role Status Dates Dr. Fercho Whitehead DO Primary Care Provider Active Arnulfo ASHFORD MD Attending Provider Active Team Status: Inactive Member Role Status Dates Dr. Fercho Whitehead DO Primary Care Provider Active Arnulfo ASHFORD MD Attending Provider, Referring Provider Active Team Status: Inactive Member Role Status Dates Dr. Fercho Whitehead DO Primary Care Provider Active Dr. Arnulfo English MD Attending Provider Active Team Status: Inactive Member Role Status Dates Dr. Fercho Whitehead DO Primary Care Provider Active Start: September 03, 2024 End: September 03, 2024 Arnulfo ASHFORD MD Attending Provider Active Start: September 03, 2024 End: September 03, 2024 Team Status: Inactive Member Role Status Dates Dr. Fercho Whitehead DO Primary Care Provider Active Start: October 15, 2024 End: October 15, 2024 Arnulfo ASHFORD MD Attending Provider Active Start: October 15, 2024 End: October 15, 2024 Team Status: Inactive Member Role Status Dates Dr. Fercho Whitehead DO Primary Care Provider Active Start: November 04, 2024 End: November 04, 2024 Dr. Arnulfo English MD Attending Provider Active Start: November 04, 2024 End: November 04, 2024 Team Status: Active Member Role Status Dates Dr. Fercho Whitehead DO Primary Care Provider Active Start: November 05, 2024 Arnulfo ASHFORD MD Attending Provider Active Start: November 05, 2024 Team Status: Inactive Member Role Status Dates Dr. Fercho Whitehead DO Primary Care Provider Active Start: November 05, 2024 End: November 05, 2024 Arnulfo ASHFORD MD Attending Provider Active Start: November 05, 2024 End: November 05, 2024 Team Status: Inactive Member Role Status Dates Dr. Fercho Whitehead DO Primary Care Provider Active Start: November 26, 2024 End: November 26, 2024 Arnulfo ASHFORD MD Attending Provider Active Start: November 26, 2024 End: November 26, 2024 Team Status: Active Member Role Status Dates Dr. Fercho Whitehead DO Primary Care Provider Active Start: December 03, 2024 Arnulfo ASHFORD MD Attending Provider Active Start: December 03, 2024 Team Status: Inactive Member Role Status Dates Dr. Fercho Whitehead DO Primary Care Provider Active Start: December 03, 2024 End: December 03, 2024 Arnulfo ASHFORD MD Attending Provider Active Start: December 03, 2024 End: December 03, 2024 FOR RECORDS PERTAINING TO PATIENTS WHO ARE [...] BE BASED ON THE PRIMARY CLINICAL RECORDS. [employer] provides no warranty or guarantee of the accuracy or completeness of information in this document.
[2025-03-04 07:26] LABS: Hematocrit 36.3 % (37-47); Hemoglobin 11.4 g/dL (12.0-15.0); Immature Granulocytes Count 0.020 X10^3/uL (0.0-0.0); Mean Corp Hgb Conc 31.4 g/dL (32-36); Mean Corpuscular Volume 87.5 fL (81-99); Mean Platelet Vol. 11.5 fl (6.2-12.0); NRBC Flagged by Analyzer 0 % (0-5); Platelet Count 264 K/mm3 (150-450); RBC Distribution Width CV 15.0 % (11.6-14.6); RBC Distribution Width SD 48.3 fl (35.1-43.9); Red Blood Count 4.15 M/mm3 (4.2-5.4); White Blood Count 6.1 K/mm3 (4.4-11.0)
[2025-03-04 07:58] LABS: Anion Gap 9 (5-15); BUN 18 mg/dL (4-19); BUN/Creat Ratio 28.3 RATIO (10-20); Calcium,Total 9.7 mg/dL (7.6-11.0); Carbon Dioxide 27.7 mmol/L (21.0-32.0); Chloride 103 mmol/L (98-108); Glucose 84 mg/dL (70-99); Potassium 4.1 mmol/L (3.3-5.1)
== END ==
LOC: OLS.WHLTSB 05:10
PROVIDERS: PCP Student in an Organized Health Care Education/Training Program; Visit Provider Internal Medicine
DX: I10 Essential (primary) hypertension (principal); E78.5 Hyperlipidemia, unspecified; M81.8 Other osteoporosis without current pathological fracture
CPT/HCPCS: 36415; 80048; 85025

== ENCOUNTER → 2025-04-01 05:00 | Outpatient (REF) | payer MEDICARE, OTHER, SELFPAY | LOC: OLS.WHLTSB 05:00 | PROVIDERS: PCP Student in an Organized Health Care Education/Training Program; Visit Provider Internal Medicine | DX: E03.9 Hypothyroidism, unspecified (principal) | CPT/HCPCS: 36415; 84439; 84443 ==

== ENCOUNTER → 2025-05-13 05:20 | Outpatient (REF) | payer MEDICARE, OTHER, SELFPAY | LOC: OLS.WHLTSB 05:20 | PROVIDERS: PCP Student in an Organized Health Care Education/Training Program; Visit Provider Internal Medicine | DX: E03.9 Hypothyroidism, unspecified (principal) | CPT/HCPCS: 36415; 84439; 84443 ==

== ENCOUNTER → 2025-06-03 05:00 | Outpatient (REF) | payer MEDICARE, OTHER, SELFPAY ==
[2025-06-03 07:43] LABS: Hematocrit 33.3 % (37-47); Hemoglobin 10.5 g/dL (12.0-15.0); Immature Granulocytes Count 0.010 X10^3/uL (0.0-0.0); Mean Corp Hgb Conc 31.5 g/dL (32-36); Mean Corpuscular Volume 88.6 fL (81-99); Mean Platelet Vol. 11.3 fl (6.2-12.0); NRBC Flagged by Analyzer 0 % (0-5); Platelet Count 216 K/mm3 (150-450); RBC Distribution Width CV 14.7 % (11.6-14.6); RBC Distribution Width SD 47.5 fl (35.1-43.9); Red Blood Count 3.76 M/mm3 (4.2-5.4); White Blood Count 6.9 K/mm3 (4.4-11.0)
[2025-06-03 08:49] LABS: Anion Gap 9 (5-15); BUN 12 mg/dL (4-19); BUN/Creat Ratio 19.7 RATIO (10-20); Calcium,Total 9.1 mg/dL (7.6-11.0); Carbon Dioxide 23.7 mmol/L (21.0-32.0); Chloride 106 mmol/L (98-108); Glucose 86 mg/dL (70-99); Potassium 4.1 mmol/L (3.3-5.1)
== END ==
LOC: OLS.WHLTSB 05:00
PROVIDERS: PCP Student in an Organized Health Care Education/Training Program; Visit Provider Internal Medicine
DX: E78.5 Hyperlipidemia, unspecified (principal); M81.8 Other osteoporosis without current pathological fracture; R14.0 Abdominal distension (gaseous); Z86.16 Personal history of COVID-19; M79.674 Pain in right toe(s); M79.675 Pain in left toe(s)
CPT/HCPCS: 36415; 80048; 85025

== ENCOUNTER → 2025-06-24 05:00 | Outpatient (REF) | payer MEDICARE, OTHER, SELFPAY ==
--- OUTSIDE RECORDS SUMMARY | 2025-06-24 04:32 | XMS RPT_ITS | CCD ---
Author Organization [facility] Care Team Providers Care Plant Associate Name Role Phone KATHY BROWN Attending Unavailable FERCHO WHITEHEAD Primary Care Unavailable DAIANA BROWN Referring Unavailable Dr. Fercho Whitehead Primary Care Provider Brianna CUPOLA TENDER HELPER, CUPOLA TENDER HELPER-C Celia Attending Provider Dr. Fercho Morejon Primary Care Provider Brianna CORBIN, CUPOLA TENDER HELPER-C Celia Attending Provider Dr. Fercho Morejon Primary Care Provider Dr. Arnulfo English Attending Provider [phone] Fercho Whitehead DO Primary Care Provider [phone] Arnulfo English MD Attending Provider Unavaila sara English MD, Dr. Arredondo Attending Provider Dr. Fercho Whitehead DO Primary Care Physician Arnulfo English MD Attending Physician Unavail able Celia Cheung Attending Physician Arnulfo Buchanan Attending UnavailFercho Shrestha Primary Care Unavailable Arnulfo Buchanan Attending Unavailabl Fercho Hennessy Primary Care Unavailable Fercho Whitehead Primary Care Unavailable Arnulfo Buchanan Attending UnavailArnulfo Kothari Attending UnavailFercho Shrestha Primary Care Unavailable Fercho Whitehead Primary Care Unavailable Arnulfo Buchanan Attending Unavailabl Fercho Hennessy Primary Care Unavailable Arnulfo Buchanan Attending Unavailabl Fercho Hennessy Primary Care Unavailable Arnulfo Buchanan Attending UnavailCelia Restrepo NP Attending Unavailable Whitehead, Fercho Primary Care Unavailable CresencioTeddy johnsonbrian Attending Unavailable WhiteheadFercho pablo Primary Care Unavailable [facility] Primary Care Unavailable Tameka MAKEDA [facility] Primary Care Unavailable Tameka MAKEDA Arnulfo [facility] Hennessy Primary Care Unavailable Tameka MAKEDA Shereenongelie Attending Unavailabl e [place] Cowanewongelie Attending [facility] elizabeth PeñaWhitehead, Fercho Primary Care Unavailable Allergies Allergy Classification Reported Allergen(s) Allergy Type Date of Onset Reaction(s) Facility (20 sources) Naproxen; Translations: [NAPROXEN] Drug Allergy 06-13-2005 Other [facility] Repository (1 source) levothyroxine; Translations: [LEVOTHYROXINE] Drug Allergy 09-28-2014 [facility] Repository (1 source) Naproxen Drug Allergy 04-22-2024 [facility] Repository Medications Current Medications Medication Drug Class(es) Dates Sig (Normalized) Sig (Original) amLODIPine 5 mg oral tablet (20 sources) Dihydropyridine Calcium Channel Oksana Start: 04-22-2024 take 1 tablet by mouth once daily Start: 03-30-2021 End: 07-28-2021 take 1 tablet by mouth once daily Amlodipine 5 mg tablet Discontinued 5 mg PO DAILY March 30, 2021 12:00am July 28, 2021 12:20pm Start: 10-23-2019 End: 03-24-2021 take 5 mg by mouth once daily Amlodipine 10 MG tablet Discontinued 5 mg PO DAILY October 23, 2019 1:00am March 24, 2021 7:27pm BP Start: 10-23-2019 End: 03-24-2021 take 5 mg by mouth once daily Amlodipine Discontinued 5 MG PO DAILY October 23, 2019 1:00am March 24, 2021 7:27pm aspirin 81 mg oral tablet (20 sources) Platelet Aggregation Inhibitor, Nonsteroidal Anti-inflammatory Drug Start: 03-06-2021 take 1 tablet by mouth once daily atorvastatin 40 mg oral tablet (20 sources) HMG-CoA Reductase Inhibitor Start: 10-23-2019 take 1 tablet by mouth at bedtime bisacodyl 5 mg delayed release oral tablet (20 sources) Stimulant Laxative Start: 03-24-2021 take 2 tablets by mouth once daily as needed for constipation Start: 03-24-2021 take 10 mg by mouth once daily as needed Bisacodyl Active 10 MG PO DAILY NEEDED March 24, 2021 12:00am docusate sodium 50 mg / [facility] 8.6 mg oral tablet (20 sources) Start: 03-24-2021 levothyroxine sodium 0.1 mg oral tablet (20 sources) l-Thyroxine Start: 04-22-2024 Start: 03-11-2021 End: 04-22-2024 take 1 tablet by mouth once daily Levothyroxine (Synthroid) 100 mcg tablet Discontinued 100 ug PO DAILY March 11, 2021 12:00am April 22, 2024 1:18pm thyroid pt unable to take generic Fyrmimka-Evz-Cz-Lycopen-Lute in (Centrum Silver) 1 EACH tablet (20 sources) Start: 10-16-2015 Gujrdpjw-Vwb-Yk-Lycopen-Lute in (Centrum Silver) 1 EACH tablet Active 1 TABLET PO DAILY October 16, 2015 1:47pm Start: 10-16-2015 take 1 tablet by mouth once da mariann Start: 10-16-2015 take 1 tablet by mouth once da mariann Wnmvenyo-Hki-Mg-Lycopen-Lutein (Centrum Silver) 1 EACH tablet Active 1 {tbl} PO DAILY October 16, 2015 1:00am Start: 10-16-2015 Xdbozpit-Vpi-W q-Bzrotfu-Gnpcfc (Centrum Silver) 1 EACH tablet Active 1 TABLET PO DAILY October 16, 2015 12:00am Start: 10-16-2015 Ytuubcqq-Blu-Y h-Axoyjyy-Syxfqc (Centrum Silver) 1 EACH tablet Active 1 TABLET PO DAILY October 16, 2015 1:00am nystatin 100 unt/mg topical powder (20 sources) Polyene Antifungal Start: 03-24-2021 Start: 03-24-2021 Nystatin (Nyam yc) 100,000 unit/gram [...] 08, 2021 4:04pm March 24, 2021 7:27pm Pain Start: 03-08-2021 End: 03-24-2021 take 1000 mg [...] 08, 2021 4:04pm April 22, 2024 1:18pm Supplement cholecalciferol 0.05 mg oral capsule (20 sources) [...] 23, 2019 1:00am March 24, 2021 7:27pm vitamin Start: 10-23-2019 End: 03-24-2021 take 60 ug [...] DAILY NEEDED as needed for constipation 0 0 March 08, 2021 12:00am April 22, 2024 1:18pm ferrous sulfate 325 mg oral tablet (20 sources) Start: 03-08-2021 End: 04-22-2024 Ferrous Sulfate (Ferosul) 325 mg (65 mg iron) tablet Discontinued 325 mg PO 1200,1700 March 08, 2021 4:04pm April 22, 2024 1:18pm Supplement Food Supplemt, Lactose-Reduced (Ensure Enlive) 0.08 gram-1.5 [...] 120 mL PO 4 TIMES DAILY 0 0 March 08, 2021 12:00am March 08, [...] 08, 2021 4:04pm March 24, 2021 7:27pm Supplement Start: 03-08-2021 End: 03-24-2021 take 1 mL [...] DAILY NEEDED as needed for Constipation 0 0 March 08, 2021 12:00am March 24, 2021 7:27pm Start: 03-08-2021 End: 03-24-2021 take 1 mL by mouth once daily as needed Magnesium Hydroxide Discontinued 30 ML PO DAILY NEEDED 0 March 08, 2021 12:00am March 24, 2021 7:27pm polyethylene glycol 3350 69515 mg powder for oral solution (20 sources) Osmotic Laxative Start: 03-24-2021 End: 04-22-2024 take 17 g by mouth once daily Polyethylene Glycol 3350 17 gram Powder In Packet Discontinued 17 g PO DAILY 0 0 March 24, 2021 12:00am April 22, 2024 1:18pm Problems Active Problems Problem Classification Problem Date Documented Da te Episodic/Chronic Abdominal hernia (20 sources) Hiatal hernia; Translations: [Diaphragmatic hernia without obstruction or gangrene] 10-24-2019 Episodic Acute cerebrovascular disease (20 sources) Infarction of basal ganglia; 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 CVA happen ed on 10/20/19 Calculus of urinary tract (20 sources) Kidney stone; Translations: [Calculus of kidney] 10-24-2019 Episodic Comment on above: Within the right kid leni Deficiency and other anemia (20 sources) Iron deficiency anemia; Translations: [Iron deficiency anemia, unspecified] 03-08-2021 Episodic Disorders of lipid metabolism (20 sources) [...] [Hemangioma of intra-abdominal structures] 10-24-2019 Episodic Other connective tissue disease (2 sources) Pain in right toe(s); Translations: [Pain in right toe(s)] Onset: 5 Episodic Other connective tissue disease (1 source) Pain in left toe(s); Translations: [Pain in left toe(s)] Onset: 5 Episodic Other gastrointestinal disorders (5 sources) Occult blood in stools; Translations: [Other fecal abnormalities] 04-23-2024 Episodic Other gastrointestinal disorders (2 sources) Abdominal distension (gaseous); Translations: [Abdominal distension (gaseous)] [...] Classification Problem Date Documented Da te Episodic/Chronic Deficiency and other anemia (1 source) Iron deficiency anemia, unspecified; Translations: [Iron deficiency anemia, unspecified] Onset: 11-21-2024 Episodic Results Test Name Value Interpretation Reference Range Facility T4 freeOrdered By: Arnulfo English on 05-13-2025 Free T4 [Mass/Vol] 1.30 ng/dL 0.76-1.46 [facility] TSH DL <= 0.005 mIU/L QnOrde red By: Arnulfo English on 05-13-2025 TSH Qn 0.731 uIU/mL 0.300-4.200 [facility] T4 freeOrdered By: Arnulfo English on 04-01-2025 Free T4 [Mass/Vol] 1.50 ng/dL High 0.76-1.46 [facility] TSH DL <= 0.005 mIU/L QnOrde red By: Arnulfo English on 04-01-2025 TSH Qn 0.352 uIU/mL 0.300-4.200 [facility] Absolute lymphocyte countOrd ered By: Arnulfo English on 03-04-2025 Lymphocytes Auto (Unsp spec) [#/Vol] 2.22 10*3/uL 0.83-4.51 [facility] Absolute neutrophil countOrd ered By: Arnulfo English on 03-04-2025 Neutrophils (Bld) [#/Vol] 3.0 10*3/uL 2.0-7.7 [facility] Anion gap in Serum or Plasma Ordered By: Arnulfo English on 03-04-2025 Anion gap [Moles/Vol] 9 mmol/L 5-15 [facility] Automated lymphocyte count a s percentage of total leukocytesOrdered By: Teddysaranyamaxineelie Cresencioelizabeth on 03-04-2025 Lymphocytes/100 WBC Auto (Unsp spec) 36.3 % 19-41 [facility] BUN/creatinine ratioOrdered By: Arnulfo English on 03-04-2025 Urea nitrogen/Creatinine [Mass ratio] 28.3 mg/mg High 10-20 [facility] Basophil percentageOrdered B y: Arnulfo English on 03-04-2025 Basophils/100 WBC (Bld) 0.8 % 0-1 [facility] Carbon dioxide, total [Moles /volume] in Central venous bloodOrdered By: Teddysaranyamaxineelie Dohertyantonelizabeth on 03-04-2025 CO2 [Moles/Vol] 27.7 mmol/L 21.0-32.0 [facility] Chloride assayOrdered By: Teddy English on 03-04-2025 Chloride [Moles/Vol] 103 mmol/L 98-108 [facility] Eosinophil percentageOrdered By: Arnulfo English on 03-04-2025 Eosinophils/100 WBC (Bld) 2.0 % 0-5 [facility] Erythrocyte distribution wid th ratioOrdered By: Arnulfo English on 03-04-2025 Erythrocyte distribution width (RBC) [Ratio] 15.0 % High 11.6-14.6 [facility] Erythrocyte distribution wid th standard deviationOrdered By: Arnulfo English on 03-04-2025 Erythrocyte distribution width (RBC) [Ratio] 48.3 fl High 35.1-43.9 [facility] Glomerular filtration rate ( GFR) estimation/1.73 sq m using serum, plasma, or whole bOrdered By: Arnulfo English 03-04-2025 GFR/1.73 sq M.predicted among non-blacks MDRD (S/P/Bld) [Vol rate/Area] 84 mL/min/{1.73_m2} >60 [facility] Comment on above: mL/min/1.73m2 CKD-EP I Creatinine Equation (2020) Hematocrit Auto (Bld) [Volum e fraction]Ordered By: Arnulfo English 03-04-2025 Hematocrit (Bld) [Volume fraction] 36.3 % Low 37-47 [facility] Hemoglobin measurementOrdere d By: Arnulfo English on 03-04-2025 Hemoglobin (Bld) [Mass/Vol] 11.4 g/dL Low 12.0-15.0 [facility] Immature granulocytes/100 WB C Auto (Bld)Ordered By: Arnulfo English 03-04-2025 Immature granulocytes/100 WBC (Bld) 0.300 % 0.0-0.9 [facility] Comment on above: IG% - Immature Granu locytes (promyelocytes, myelocytes and metamyelocytes) > 1% indicates that a LEFT SHIFT is Present. MCV (mean corpuscular volume ) determinationOrdered By: Arnulfo English 03-04-2025 MCV (RBC) [Entitic vol] 87.5 fL 81-99 [facility] Mean corpuscular hemoglobin (MCH) determinationOrdered By: Arnulfo English on 03-04-2025 MCH (RBC) [Entitic mass] 27.5 pg 27.0-32.0 [facility] Mean corpuscular hemoglobin concentration (MCHC) determinationOrdered By: Arnulfo English on 03-04-2025 MCHC (RBC) [Mass/Vol] 31.4 g/dL Low 32-36 [facility] Mean platelet volume determi nationOrdered By: Arnulfo English on 03-04-2025 Platelet mean volume (Bld) [Entitic vol] 11.5 fL 6.2-12.0 [facility] Monocyte percentageOrdered B y: Arnulfo English on 03-04-2025 Monocytes/100 WBC (Bld) 11.4 % High 0-10 [facility] Neutrophil percentageOrdered By: Arnulfo English on 03-04-2025 Neutrophils/100 WBC (Bld) 49.2 % 47-70 [facility] Nucleated red blood cell per centageOrdered By: Arnulfo English on 03-04-2025 Nucleated RBC/100 WBC (Bld) [Ratio] 0 % 0-5 [facility] Platelet countOrdered By: Teddy English on 03-04-2025 Platelets (Bld) [#/Vol] 264 10*3/uL 150-450 [facility] Potassium measurement (mass/ volume)Ordered By: Arnulfo English on 03-04-2025 Potassium (Unsp spec) [Mass/Vol] 4.1 mmol/L 3.3-5.1 [facility] RBC Auto (Bld) [#/Vol]Ordere d By: Arnulfo English on 03-04-2025 RBC (Bld) [#/Vol] 4.15 10*6/uL Low 4.2-5.4 [facility] Serum creatinine measurement (mass/volume)Ordered By: Arnulfo English on 03-04-2025 Creatinine [Mass/Vol] 0.64 mg/dL Low 0.70-1.20 [facility] Serum glucose measurement (m ass/volume)Ordered By: Arnulfo English on 03-04-2025 Glucose [Mass/Vol] 84 mg/dL 70-99 [facility] Serum or plasma calcium emrlyn urement (mass/volume)Ordered By: Arnulfo English on 03-04-2025 Calcium [Mass/Vol] 9.7 mg/dL 7.6-11.0 [facility] Serum or plasma urea nitroge n measurement (mass/volume)Ordered By: Arnulfo English on 03-04-2025 Urea nitrogen [Mass/Vol] 18 mg/dL 4-19 [facility] Sodium levelOrdered By: Shereen pablomyrandaelizabeth English on 03-04-2025 Sodium [Moles/Vol] 140 mmol/L 133-145 [facility] White blood cell (WBC) count Ordered By: Arnulfo English on 03-04-2025 WBC (Bld) [#/Vol] 6.1 10*3/uL 4.4-11.0 [facility] T4 freeOrdered By: Arnulfo English on 02-18-2025 Free T4 [Mass/Vol] 1.60 ng/dL High 0.76-1.46 [facility] TSH DL <= 0.005 mIU/L QnOrde red By: Arnulfo English on 02-18-2025 TSH Qn 0.440 uIU/mL 0.300-4.200 [facility] Absolute lymphocyte countOrd ered By: Arnulfo English on 12-03-2024 Lymphocytes Auto (Unsp spec) [#/Vol] 1.81 10*3/uL 0.83-4.51 [facility] Absolute neutrophil countOrd ered By: Arnulfo English on 12-03-2024 Neutrophils (Bld) [#/Vol] 2.8 10*3/uL 2.0-7.7 [facility] Anion gap in Serum or Plasma Ordered By: Arnulfo English on 12-03-2024 Anion gap [Moles/Vol] 8 mmol/L 5-15 [facility] Automated lymphocyte count a s percentage of total leukocytesOrdered By: Arnulfo English on 12-03-2024 Lymphocytes/100 WBC Auto (Unsp spec) 33.2 % 19-41 [facility] BUN/creatinine ratioOrdered By: Arnulfo English on 12-03-2024 Urea nitrogen/Creatinine [Mass ratio] 20.9 mg/mg High 10-20 [facility] Basophil percentageOrdered B y: Arnulfo English on 12-03-2024 Basophils/100 WBC (Bld) 0.9 % 0-1 [facility] Carbon dioxide, total [Moles /volume] in Central venous bloodOrdered By: Arnulfo English on 12-03-2024 CO2 [Moles/Vol] 25.9 mmol/L 21.0-32.0 [facility] Chloride assayOrdered By: Teddy saranyaskye English on 12-03-2024 Chloride [Moles/Vol] 105 mmol/L 98-108 [facility] Eosinophil percentageOrdered By: Arnulfo English on 12-03-2024 Eosinophils/100 WBC (Bld) 2.0 % 0-5 [facility] Erythrocyte distribution wid th ratioOrdered By: Arnulfo English on 12-03-2024 Erythrocyte distribution width (RBC) [Ratio] 16.3 % High 11.6-14.6 [facility] Erythrocyte distribution wid th standard deviationOrdered By: Shereenbuffaloelie English on 12-03-2024 Erythrocyte distribution width (RBC) [Ratio] 50.4 fl High 35.1-43.9 [facility] Glomerular filtration rate ( GFR) estimation/1.73 sq m using serum, plasma, or whole bOrdered By: Arnulfo English on 12-03-2024 GFR/1.73 sq M.predicted among non-blacks MDRD (S/P/Bld) [Vol rate/Area] 79 mL/min/{1.73_m2} >60 [facility] Comment on above: mL/min/1.73m2 CKD-EP I Creatinine Equation (2020) Hematocrit Auto (Bld) [Volum e fraction]Ordered By: Arnulfo English on 12-03-2024 Hematocrit (Bld) [Volume fraction] 33.9 % Low 37-47 [facility] Hemoglobin measurementOrdere d By: Arnulfo English on 12-03-2024 Hemoglobin (Bld) [Mass/Vol] 10.6 g/dL Low 12.0-15.0 [facility] Immature granulocytes/100 WB C Auto (Bld)Ordered By: Arnulfo English on 12-03-2024 Immature granulocytes/100 WBC (Bld) 0.200 % 0.0-0.9 [facility] Comment on above: IG% - Immature Granu locytes (promyelocytes, myelocytes and metamyelocytes) > 1% indicates that a LEFT SHIFT is Present. MCV (mean corpuscular volume ) determinationOrdered By: Arnulfo English on 12-03-2024 MCV (RBC) [Entitic vol] 85.4 fL 81-99 [facility] Mean corpuscular hemoglobin (MCH) determinationOrdered By: Arnulfo English on 12-03-2024 MCH (RBC) [Entitic mass] 26.7 pg Low 27.0-32.0 [facility] Mean corpuscular hemoglobin concentration (MCHC) determinationOrdered By: Arnulfo English on 12-03-2024 MCHC (RBC) [Mass/Vol] 31.3 g/dL Low 32-36 [facility] Mean platelet volume determi nationOrdered By: Arnulfo English on 12-03-2024 Platelet mean volume (Bld) [Entitic vol] 11.1 fL 6.2-12.0 [facility] Monocyte percentageOrdered B y: Arnulfo English on 12-03-2024 Monocytes/100 WBC (Bld) 13.4 % High 0-10 [facility] Neutrophil percentageOrdered By: Arnulfo English on 12-03-2024 Neutrophils/100 WBC (Bld) 50.3 % 47-70 [facility] Nucleated red blood cell per centageOrdered By: Arnulfo English on 12-03-2024 Nucleated RBC/100 WBC (Bld) [Ratio] 0 % 0-5 [facility] Platelet countOrdered By: Tdedy English on 12-03-2024 Platelets (Bld) [#/Vol] 274 10*3/uL 150-450 [facility] Potassium measurement (mass/ volume)Ordered By: Arnulfo English on 12-03-2024 Potassium (Unsp spec) [Mass/Vol] 4.1 mmol/L 3.3-5.1 [facility] RBC Auto (Bld) [#/Vol]Ordere d By: Arnulfo English on 12-03-2024 RBC (Bld) [#/Vol] 3.97 10*6/uL Low 4.2-5.4 [facility] Serum creatinine measurement (mass/volume)Ordered By: Arnulfo English on 12-03-2024 Creatinine [Mass/Vol] 0.73 mg/dL 0.70-1.20 [facility] Serum glucose measurement (m ass/volume)Ordered By: Arnulfo English on 12-03-2024 Glucose [Mass/Vol] 84 mg/dL 70-99 [facility] Serum or plasma calcium merlyn urement (mass/volume)Ordered By: Arnulfo English on 12-03-2024 Calcium [Mass/Vol] 9.4 mg/dL 7.6-11.0 [facility] Serum or plasma urea nitroge n measurement (mass/volume)Ordered By: Arnulfo English on 12-03-2024 Urea nitrogen [Mass/Vol] 15 mg/dL 4-19 [facility] Sodium levelOrdered By: Shereen English on 12-03-2024 Sodium [Moles/Vol] 140 mmol/L 133-145 [facility] TSH DL <= 0.005 mIU/L QnOrde red By: Arnulfo English on 12-03-2024 TSH Qn 3.870 uIU/mL 0.300-4.200 [facility] White blood cell (WBC) count Ordered By: Arnulfo English on 12-03-2024 WBC (Bld) [#/Vol] 5.5 10*3/uL 4.4-11.0 [facility] T4 freeOrdered By: Arnulfo English on 11-26-2024 Free T4 [Mass/Vol] 1.20 ng/dL 0.76-1.46 [facility] TSH DL <= 0.005 mIU/L QnOrde red By: Arnulfo English on 11-26-2024 TSH Qn 9.810 uIU/mL High 0.300-4.200 [facility] Absolute lymphocyte countOrd ered By: Arnulfo English on 11-05-2024 Lymphocytes Auto (Unsp spec) [#/Vol] 1.77 10*3/uL 0.83-4.51 [facility] Absolute neutrophil countOrd ered By: Arnulfo English on 11-05-2024 Neutrophils (Bld) [#/Vol] 3.5 10*3/uL 2.0-7.7 [facility] Automated lymphocyte count a s percentage of total leukocytesOrdered By: Arnulfo English on 11-05-2024 Lymphocytes/100 WBC Auto (Unsp spec) 27.7 % 19-41 [facility] Basophil percentageOrdered B y: Arnulfo English on 11-05-2024 Basophils/100 WBC (Bld) 0.8 % 0-1 [facility] Eosinophil percentageOrdered By: Arnulfo English on 11-05-2024 Eosinophils/100 WBC (Bld) 2.5 % 0-5 [facility] Erythrocyte distribution wid th (RBC) [Ratio]Ordered By: Arnulfo English on 11-05-2024 Erythrocyte distribution width (RBC) [Entitic vol] 48.0 fL High 35.1-43.9 [facility] Erythrocyte distribution wid th ratioOrdered By: brian English on 11-05-2024 Erythrocyte distribution width (RBC) [Ratio] 15.4 % High 11.6-14.6 [facility] Erythrocyte distribution wid th standard deviationOrdered By: Arnulfo English on 11-05-2024 Erythrocyte distribution width (RBC) [Ratio] 48.0 fl High 35.1-43.9 [facility] Hematocrit Auto (Bld) [Volum e fraction]Ordered By: Arnulfo English on 11-05-2024 Hematocrit (Bld) [Volume fraction] 31.5 % Low 37-47 [facility] Hemoglobin measurementOrdere d By: Arnulfo English on 11-05-2024 Hemoglobin (Bld) [Mass/Vol] 9.8 g/dL Low 12.0-15.0 [facility] Immature granulocytes/100 WB C Auto (Bld)Ordered By: Arnulfo English on 11-05-2024 Immature granulocytes/100 WBC (Bld) 0.300 % 0.0-0.9 [facility] Comment on above: IG% - Immature Granu locytes (promyelocytes, myelocytes and metamyelocytes) > 1% indicates that a LEFT SHIFT is Present. Lymphocytes Auto (Unsp spec) [#/Vol]Ordered By: Arnulfo English on 11-05-2024 Lymphocytes (Bld) [#/Vol] 1.77 10*3/uL 0.83-4.51 [facility] Lymphocytes/100 WBC Auto (Un sp spec)Ordered By: Arnulfo English on 11-05-2024 Lymphocytes/100 WBC (Bld) 27.7 % 19-41 [facility] MCV (mean corpuscular volume ) determinationOrdered By: Arnulfo English on 11-05-2024 MCV (RBC) [Entitic vol] 85.6 fL 81-99 [facility] Mean corpuscular hemoglobin (MCH) determinationOrdered By: Arnulfo English on 11-05-2024 MCH (RBC) [Entitic mass] 26.6 pg Low 27.0-32.0 [facility] Mean corpuscular hemoglobin concentration (MCHC) determinationOrdered By: Arnulfo English on 11-05-2024 MCHC (RBC) [Mass/Vol] 31.1 g/dL Low 32-36 [facility] Mean platelet volume determi nationOrdered By: Arnulfo English on 11-05-2024 Platelet mean volume (Bld) [Entitic vol] 11.2 fL 6.2-12.0 [facility] Monocyte percentageOrdered B y: Arnulfo English on 11-05-2024 Monocytes/100 WBC (Bld) 13.9 % High 0-10 [facility] Neutrophil percentageOrdered By: Shereenmaxineelie English on 11-05-2024 Neutrophils/100 WBC (Bld) 54.8 % 47-70 [facility] Nucleated red blood cell per centageOrdered By: Teddysaranyaskye Chasantonelizabeth on 11-05-2024 Nucleated RBC/100 WBC (Bld) [Ratio] 0 % 0-5 [facility] Platelet countOrdered By: Teddy brian Chasantonelizabeth on 11-05-2024 Platelets (Bld) [#/Vol] 266 10*3/uL 150-450 [facility] RBC Auto (Bld) [#/Vol]Ordere d By: Shereenmaxineelie Dohertyantonelizabeth on 11-05-2024 RBC (Bld) [#/Vol] 3.68 10*6/uL Low 4.2-5.4 [facility] White blood cell (WBC) count Ordered By: Shereenmaxineelie Dohertyantonelizabeth on 11-05-2024 WBC (Bld) [#/Vol] 6.4 10*3/uL 4.4-11.0 [facility] T4 freeOrdered By: Shereenmaxineelie English on 10-15-2024 Free T4 [Mass/Vol] 1.00 ng/dL 0.76-1.46 [facility] TSH DL <= 0.005 mIU/L QnOrde red By: Shereenmaxineelie Dohertyantonelizabeth on 10-15-2024 Thyroid Stimulating Hormone (TSH) 7.710 uIU/mL High 0.300-4.200 [facility] TSH Qn 7.710 uIU/mL High 0.300-4.200 [facility] Absolute lymphocyte countOrd ered By: Shereenmaxineelie English on 09-03-2024 Lymphocytes Auto (Unsp spec) [#/Vol] 1.82 10*3/uL 0.83-4.51 [facility] Absolute neutrophil countOrd ered By: Shereenmaxineelei Dohertyantonelizabeth on 09-03-2024 Neutrophils (Bld) [#/Vol] 3.2 10*3/uL 2.0-7.7 [facility] Automated lymphocyte count a s percentage of total leukocytesOrdered By: Arnulfo English on 09-03-2024 Lymphocytes/100 WBC Auto (Unsp spec) 29.8 % 19-41 [facility] Basophil percentageOrdered B y: Shereenmaxineelie English on 09-03-2024 Basophils/100 WBC (Bld) 0.7 % 0-1 [facility] Blood urea nitrogen (BUN)/cr eatinine ratioOrdered By: Arnulfo English on 09-03-2024 Urea nitrogen/Creatinine [Mass ratio] 34.1 mg/mg High 10-20 [facility] Carbon dioxide measurementOr dered By: saranyabuffaloelie English on 09-03-2024 CO2 [Moles/Vol] 26.0 mmol/L 21.0-32.0 [facility] Chloride measurementOrdered By: [facility] English on 09-03-2024 Chloride [Moles/Vol] 110 mmol/L High 98-107 [facility] Direct serum free thyroxine (FT4) measurementOrdered By: Arnulfo English on 09-03-2024 Free T4 [Mass/Vol] 1.30 ng/dL 0.76-1.46 [facility] Eosinophil percentageOrdered By: Arnulfo English on 09-03-2024 Eosinophils/100 WBC (Bld) 2.6 % 0-5 [facility] Erythrocyte distribution wid th (RBC) [Ratio]Ordered By: Arnulfo English on 09-03-2024 Erythrocyte distribution width (RBC) [Entitic vol] 47.6 fL High 35.1-43.9 [facility] Erythrocyte distribution wid th ratioOrdered By: Arnulfo English on 09-03-2024 Erythrocyte distribution width (RBC) [Ratio] 14.7 % High 11.6-14.6 [facility] Erythrocyte distribution wid th standard deviationOrdered By: brian English on 09-03-2024 Erythrocyte distribution width (RBC) [Ratio] 47.6 fl High 35.1-43.9 [facility] Estimated glomerular filtrat ion rate (GFR) AmericanOrdered By: Arnulfo English on 09-03-2024 Estimated GFR (MDRD) Amer 124 mL/min >60 [facility] Comment on above: GFR Calc Glomerular filtration rate ( GFR) estimationOrdered By: Arnulfo English on 09-03-2024 Estimated GFR (MDRD) Non-Af Amer 103 mL/min >60 [facility] Comment on above: Non- GFR Calc GFR/1.73 sq M.predicted among non-blacks MDRD (S/P/Bld) [Vol rate/Area] 103 mL/min/{1.73_m2} >60 [facility] Comment on above: Non- GFR Calc Glucose measurementOrdered B y: Arnulfo English on 09-03-2024 Glucose [Mass/Vol] 84 mg/dL 74-106 [facility] Hematocrit Auto (Bld) [Volum e fraction]Ordered By: Arnulfo English on 09-03-2024 Hematocrit (Bld) [Volume fraction] 29.4 % Low 37-47 [facility] Hemoglobin measurementOrdere d By: Arnulfo English on 09-03-2024 Hemoglobin (Bld) [Mass/Vol] 8.8 g/dL Low 12.0-15.0 [facility] High density lipoprotein (HD L) measurementOrdered By: Arnulfo English on 09-03-2024 Cholesterol in HDL [Mass/Vol] 74 mg/dL >40 [facility] Comment on above: The drugs N-Acetylcy steine and Metamizole may falsely depress this assay. Reference Range HDL <40 mg/dL Low HDL Cholesterol HDL >or= 60 mg/dL High HDL Cholesterol Immature granulocytes/100 WB C Auto (Bld)Ordered By: Arnulfo English on 09-03-2024 Immature granulocytes/100 WBC (Bld) 0.200 % 0.0-0.9 [facility] Comment on above: IG% - Immature Granu locytes (promyelocytes, myelocytes and metamyelocytes) > 1% indicates that a LEFT SHIFT is Present. Low density lipoprotein (LDL ) cholesterol measurementOrdered By: Arnulfo English on 09-03-2024 Cholesterol in LDL [Mass/Vol] 77 mg/dL 0-130 [facility] Lymphocytes Auto (Unsp spec) [#/Vol]Ordered By: Arnulfo English on 09-03-2024 Lymphocytes (Bld) [#/Vol] 1.82 10*3/uL 0.83-4.51 [facility] Lymphocytes/100 WBC Auto (Un sp spec)Ordered By: Shereenmaxineelie Dohertyantonelizabeth on 09-03-2024 Lymphocytes/100 WBC (Bld) 29.8 % 19-41 [facility] MCV (mean corpuscular volume ) determinationOrdered By: Arnulfo English on 09-03-2024 MCV (RBC) [Entitic vol] 87.2 fL 81-99 [facility] Mean corpuscular hemoglobin (MCH) determinationOrdered By: Arnulfo English on 09-03-2024 MCH (RBC) [Entitic mass] 26.1 pg Low 27.0-32.0 [facility] Mean corpuscular hemoglobin concentration (MCHC) determinationOrdered By: Arnulfo English on 09-03-2024 MCHC (RBC) [Mass/Vol] 29.9 g/dL Low 32-36 [facility] Mean platelet volume determi nationOrdered By: Arnulfo English on 09-03-2024 Platelet mean volume (Bld) [Entitic vol] 11.3 fL 6.2-12.0 [facility] Monocyte percentageOrdered B y: Arnulfo English on 09-03-2024 Monocytes/100 WBC (Bld) 14.8 % High 0-10 [facility] Neutrophil percentageOrdered By: Arnulfo English on 09-03-2024 Neutrophils/100 WBC (Bld) 51.9 % 47-70 [facility] Nucleated red blood cell per centageOrdered By: Arnulfo English on 09-03-2024 Nucleated RBC/100 WBC (Bld) [Ratio] 0 % 0-5 [facility] Platelet countOrdered By: brian English on 09-03-2024 Platelets (Bld) [#/Vol] 262 10*3/uL 150-450 [facility] Potassium measurementOrdered By: Arnulfo English on 09-03-2024 Potassium [Moles/Vol] 4.1 mmol/L 3.5-5.1 [facility] RBC Auto (Bld) [#/Vol]Ordere d By: Arnulfo English on 09-03-2024 RBC (Bld) [#/Vol] 3.37 10*6/uL Low 4.2-5.4 [facility] Serum anion gap measurementO rdered By: Arnulfo English on 09-03-2024 Anion gap [Moles/Vol] 5 mmol/L 5-15 [facility] Serum or plasma calcium merlyn urement (mass/volume)Ordered By: Arnulfo English on 09-03-2024 Calcium [Mass/Vol] 9.1 mg/dL 8.5-10.1 [facility] Serum or plasma cholesterol measurement (mass/volume)Ordered By: Arnulfo English on 09-03-2024 Cholesterol [Mass/Vol] 162 mg/dL <200 [facility] Comment on above: <200 mg/dL Desirable 200-240 mg/dL Borderline >240 mg/dL High Risk Serum or plasma creatinine m easurement (mass/volume)Ordered By: Arnulfo English on 09-03-2024 Creatinine [Mass/Vol] 0.59 mg/dL 0.55-1.02 [facility] Comment on above: The validity of the calculated GFR & GFRAA in patients over 70 years has not been determined. Clinical correlation is essential. Serum or plasma thyroid stim ulating hormone (TSH) measurement (units/volume)Ordered By: Arnulfo English on 09-03-2024 TSH Qn 0.255 uIU/mL Low 0.358-3.740 [facility] Serum or plasma urea nitroge n measurement (mass/volume)Ordered By: Arnulfo English on 09-03-2024 Urea nitrogen [Mass/Vol] 20 mg/dL High 7-18 [facility] Sodium levelOrdered By: Shereen English on 09-03-2024 Sodium [Moles/Vol] 141 mmol/L 136-145 [facility] TSH QnOrdered By: Arnulfo English on 09-03-2024 Thyroid Stimulating Hormone (TSH) 0.255 uIU/mL Low 0.358-3.740 [facility] Triglycerides measurementOrd ered By: Arnulfo English on 09-03-2024 Triglyceride [Mass/Vol] 56 mg/dL <199 [facility] Comment on above: The drugs N-Acetylcy steine and Metamizole may falsely depress this assay.Serum Triglycerides Reference Interval Normal <150 mg/dL Borderline high 150 - 199 mg/dL High 200 - 499 mg/dL Very High > or = 500 mg/dL Very low density lipoprotein (VLDL) cholesterol measurementOrdered By: Arnulfo English on 09-03-2024 Very low density lipoprotein (VLDL) cholesterol measurement 11 mg/dL 5-40 [facility] VLDL Cholesterol 11 mg/dL 5-40 [facility] White blood cell (WBC) count Ordered By: Arnulfo English on 09-03-2024 WBC (Bld) [#/Vol] 6.1 10*3/uL 4.4-11.0 [facility] Serum or plasma thyroid stim ulating hormone (TSH) measurement (units/volume)Ordered By: Arnulfo English on 11-26-2023 TSH Qn 1.32 uIU/mL 0.358-3.74 [facility] Thin prep Papanicolaou smear with manual screeningOrdered By: Arnulfo English on 11-26-2023 Thin prep Papanicolaou smear with manual screening 1.27 ng/dL 0.76-1.46 [facility] Bilirubin Test strip Ql (U)O rdered By: Arnulfo English on 11-24-2023 Bilirubin Ql (U) Negative Negative [facility] Culture, urineOrdered By: Teddy English on 11-24-2023 Bacteria identified Cx Nom (U) Escherichia coli [facility] Ketones Test strip Ql (U)Ord ered By: Arnulfo English on 11-24-2023 Ketones Ql (U) Negative Negative [facility] Nitrite Test strip Ql (U)Ord ered By: Arnulfo English on 11-24-2023 Nitrite Ql (U) Positive Negative [facility] Protein Test strip Ql (U)Ord ered By: Arnulfo English on 11-24-2023 Protein Ql (U) Negative Negative [facility] Urine blood detectionOrdered By: Arnulfo English on 11-24-2023 RBC Ql (U) 25 /ul Negative [facility] Urine clarityOrdered By: Kota English on 11-24-2023 Clarity (U) Clear Clear [facility] Urine color determinationOrd ered By: Arnulfo English on 11-24-2023 Color (U) Straw Yellow [facility] Urine glucose detectionOrder ed By: Arnulfo English on 11-24-2023 Glucose Ql (U) Normal mg/dl Normal [facility] Urine leukocyte esterase det ection by dipstickOrdered By: Arnulfo English on 11-24-2023 Leukocyte esterase Test strip Ql (U) 500 /ul Negative [facility] Urine pHOrdered By: Aurelia English on 11-24-2023 pH (U) 7.0 [pH] 5.0 - 8.0 [facility] Urine specific gravity measu rementOrdered By: Arnulfo English on 11-24-2023 Specific gravity (U) [Rel density] 1.010 1.002-1.030 [facility] Urine urobilinogen measureme ntOrdered By: Arnulfo English on 11-24-2023 Urobilinogen Ql (U) Normal mg/dl Normal [facility] Absolute lymphocyte countOrd ered By: Arnulfo English on 10-10-2023 Lymphocytes Auto (Unsp spec) [#/Vol] 1.87 10*3/uL 0.83-4.51 [facility] Automated lymphocyte count a s percentage of total leukocytesOrdered By: Arnulfo English on 10-10-2023 Lymphocytes/100 WBC Auto (Unsp spec) 29.7 % 19-41 [facility] Basophil percentageOrdered B y: Arnulfo English on 10-10-2023 Basophils/100 WBC (Bld) 0.6 % 0-1 [facility] Chloride [Moles/Vol] 109 mmol/L 98-107 [facility] Eosinophils/100 WBC (Bld) 2.7 % 0-5 [facility] Glucose [Mass/Vol] 88 mg/dL 74-106 [facility] Hemoglobin (Bld) [Mass/Vol] 10.3 g/dL 12.0-15.0 [facility] Monocytes/100 WBC (Bld) 12.7 % 0-10 [facility] Neutrophils (Bld) [#/Vol] 3.4 10*3/uL 2.0-7.7 [facility] Neutrophils/100 WBC (Bld) 54.1 % 47-70 [facility] Potassium [Moles/Vol] 4.1 mmol/L 3.5-5.1 [facility] Sodium [Moles/Vol] 138 mmol/L 136-145 [facility] WBC (Bld) [#/Vol] 6.3 10*3/uL 4.4-11.0 [facility] Determination of erythrocyte mean corpuscular volume (MCV)Ordered By: Arnulfo English on 10-10-2023 MCV (RBC) [Entitic vol] 90.3 fL 81-99 [facility] Erythrocyte distribution wid th ratioOrdered By: saranyabuffaloelie English on 10-10-2023 Erythrocyte distribution width (RBC) [Ratio] 14.4 % 11.6-14.6 [facility] Erythrocyte distribution wid th standard deviationOrdered By: Shereenbuffaloelie English on 10-10-2023 Erythrocyte distribution width (RBC) [Entitic vol] 47.2 fL 35.1-43.9 [facility] Hematocrit Auto (Bld) [Volum e fraction]Ordered By: Arnulfo English on 10-10-2023 Hematocrit (Bld) [Volume fraction] 33.4 % 37-47 [facility] Immature granulocytes/100 WB C Auto (Bld)Ordered By: Arnulfo English on 10-10-2023 Immature granulocytes/100 WBC (Bld) 0.200 % 0.0-0.9 [facility] Comment on above: IG% - Immature Granu locytes (promyelocytes, myelocytes and metamyelocytes) > 1% indicates that a LEFT SHIFT is Present. Laboratory - Chemistry and C hemistry - challengeOrdered By: Arnulfo English on 10-10-2023 CO2 [Moles/Vol] 25.0 mmol/L 21.0-32.0 [facility] Urea nitrogen/Creatinine [Mass ratio] 38.2 mg/mg 10-20 [facility] Laboratory - Hematology and Cell countsOrdered By: Arnulfo English on 10-10-2023 MCH (RBC) [Entitic mass] 27.8 pg 27.0-32.0 [facility] MCHC (RBC) [Mass/Vol] 30.8 g/dL 32-36 [facility] Nucleated RBC/100 WBC (Bld) [Ratio] 0 % 0-5 [facility] Platelet mean volume (Bld) [Entitic vol] 11.5 fL 6.2-12.0 [facility] Platelets (Bld) [#/Vol] 245 10*3/uL 150-450 [facility] No Panel InformationOrdered By: Arnulfo English on 10-10-2023 Estimated GFR (MDRD) Amer 121 mL/min >60 [facility] Comment on above: GFR Calc Estimated GFR (MDRD) Non-Af Amer 100 mL/min >60 [facility] Comment on above: Non- GFR Calc RBC Auto (Bld) [#/Vol]Ordere d By: Arnulfo English on 10-10-2023 RBC (Bld) [#/Vol] 3.70 10*6/uL 4.2-5.4 [facility] Serum or plasma calcium merlyn urement (mass/volume)Ordered By: Arnulfo English on 10-10-2023 Calcium [Mass/Vol] 9.3 mg/dL 8.5-10.1 [facility] Serum or plasma creatinine m easurement (mass/volume)Ordered By: Arnulfo English on 10-10-2023 Creatinine [Mass/Vol] 0.60 mg/dL 0.55-1.02 [facility] Comment on above: The validity of the calculated GFR & GFRAA in patients over 70 years has not been determined. Clinical correlation is essential. Serum or plasma urea nitroge n measurement (mass/volume)Ordered By: Arnulfo English on 10-10-2023 Urea nitrogen [Mass/Vol] 23 mg/dL 7-18 [facility] Thin prep Papanicolaou smear with manual screeningOrdered By: Arnulfo English on 10-10-2023 Thin prep Papanicolaou smear with manual screening 4 5-15 [facility] Serum or plasma thyroid stim ulating hormone (TSH) measurement (units/volume)Ordered By: Arnulfo English on 10-01-2023 TSH Qn 1.40 uIU/mL 0.358-3.74 [facility] Thin prep Papanicolaou smear with manual screeningOrdered By: Arnulfo English on 10-01-2023 Thin prep Papanicolaou smear with manual screening 1.42 ng/dL 0.76-1.46 [facility] Basophil percentageOrdered B y: Arnulfo English on 09-05-2023 Cholesterol [Mass/Vol] 116 mg/dL <200 [facility] Comment on above: <200 mg/dL Desirable 200-240 mg/dL Borderline >240 mg/dL High Risk Triglyceride [Mass/Vol] 85 mg/dL <199 [facility] Comment on above: The drugs N-Acetylcy steine and Metamizole may falsely depress this assay.Serum Triglycerides Reference Interval Normal <150 mg/dL Borderline high 150 - 199 mg/dL High 200 - 499 mg/dL Very High > or = 500 mg/dL High density lipoprotein (HD L) measurementOrdered By: Arnulfo English on 09-05-2023 Cholesterol in HDL (Body fld) [Mass/Vol] 58 mg/dL >40 [facility] Comment on above: The drugs N-Acetylcy steine and Metamizole may falsely depress this assay. Reference Range HDL <40 mg/dL Low HDL Cholesterol HDL >or= 60 mg/dL High HDL Cholesterol Low density lipoprotein (LDL ) cholesterol measurementOrdered By: Arnulfo English on 09-05-2023 Cholesterol in LDL (Body fld) [Moles/Vol] 41 mg/dL 0-130 [facility] Very low density lipoprotein (VLDL) cholesterol measurementOrdered By: Arnulfo English on 09-05-2023 Cholesterol in VLDL Calc [Moles/Vol] 17 mg/dL 5-40 [facility] Absolute lymphocyte countOrd ered By: Arnulfo English on 07-04-2023 Lymphocytes Auto (Unsp spec) [#/Vol] 2.09 10*3/uL 0.83-4.51 [facility] Basophil percentageOrdered B y: Arnulfo English on 07-04-2023 Basophils/100 WBC (Bld) 0.6 % 0-1 [facility] Chloride [Moles/Vol] 107 mmol/L 98-107 [facility] Eosinophils/100 WBC (Bld) 4.6 % 0-5 [facility] Glucose [Mass/Vol] 73 mg/dL 74-106 [facility] Neutrophils (Bld) [#/Vol] 3.0 10*3/uL 2.0-7.7 [facility] Neutrophils/100 WBC (Bld) 47.2 % 47-70 [facility] Potassium [Moles/Vol] 4.1 mmol/L 3.5-5.1 [facility] Sodium [Moles/Vol] 141 mmol/L 136-145 [facility] WBC (Bld) [#/Vol] 6.4 10*3/uL 4.4-11.0 [facility] Blood erythrocytes count (nu mber/volume)Ordered By: Arnulfo English on 07-04-2023 RBC (Bld) [#/Vol] 3.83 10*6/uL 4.2-5.4 [facility] Blood hemoglobin measurement (mass/volume)Ordered By: Arnulfo English on 07-04-2023 Hemoglobin (Bld) [Mass/Vol] 10.7 g/dL 12.0-15.0 [facility] Blood lymphocytes/100 leukoc ytesOrdered By: brian English on 07-04-2023 Lymphocytes/100 WBC (Bld) 32.8 % 19-41 [facility] Blood monocytes/100 leukocyt esOrdered By: saranyaongelie Duponte on 07-04-2023 Monocytes/100 WBC (Bld) 14.6 % 0-10 [facility] Blood platelet mean volumeOr dered By: Arnulfo Duponte on 07-04-2023 Platelet mean volume (Bld) [Entitic vol] 11.9 fL 6.2-12.0 [facility] Determination of erythrocyte mean corpuscular volume (MCV)Ordered By: Arnulfo English on 07-04-2023 MCV (RBC) [Entitic vol] 93.2 fL 81-99 [facility] Hematocrit Auto (Bld) [Volum e fraction]Ordered By: Arnulfo English on 07-04-2023 Hematocrit (Bld) [Volume fraction] 35.7 % 37-47 [facility] Laboratory - Chemistry and C hemistry - challengeOrdered By: Arnulfo English on 07-04-2023 CO2 [Moles/Vol] 27.0 mmol/L 21.0-32.0 [facility] Urea nitrogen/Creatinine [Mass ratio] 30.8 mg/mg 10-20 [facility] Laboratory - Hematology and Cell countsOrdered By: Arnulfo English on 07-04-2023 Erythrocyte distribution width (RBC) [Entitic vol] 46.9 fL 35.1-43.9 [facility] Erythrocyte distribution width (RBC) [Ratio] 13.8 % 11.6-14.6 [facility] Immature granulocytes/100 WBC (Bld) 0.200 % 0.0-0.9 [facility] Comment on above: IG% - Immature Granu locytes (promyelocytes, myelocytes and metamyelocytes) > 1% indicates that a LEFT SHIFT is Present. MCH (RBC) [Entitic mass] 27.9 pg 27.0-32.0 [facility] Nucleated RBC/100 WBC (Bld) [Ratio] 0 % 0-5 [facility] MCHC Auto (RBC) [Mass/Vol]Or dered By: Arnulfo English on 07-04-2023 MCHC (RBC) [Mass/Vol] 30.0 g/dL 32-36 [facility] No Panel InformationOrdered By: Arnulfo English on 07-04-2023 Estimated GFR (MDRD) Amer 144 mL/min >60 [facility] Comment on above: GFR Calc Estimated GFR (MDRD) Non-Af Amer 119 mL/min >60 [facility] Comment on above: Non- GFR Calc Platelets bldOrdered By: Kota English on 07-04-2023 Platelets (Bld) [#/Vol] 220 10*3/uL 150-450 [facility] Serum or plasma calcium merlyn urement (mass/volume)Ordered By: Arnulfo English on 07-04-2023 Calcium [Mass/Vol] 8.6 mg/dL 8.5-10.1 [facility] Serum or plasma creatinine m easurement (mass/volume)Ordered By: Arnulfo English on 07-04-2023 Creatinine [Mass/Vol] 0.52 mg/dL 0.55-1.02 [facility] Comment on above: The validity of the calculated GFR & GFRAA in patients over 70 years has not been determined. Clinical correlation is essential. Serum or plasma urea nitroge n measurement (mass/volume)Ordered By: Arnulfo English on 07-04-2023 Urea nitrogen [Mass/Vol] 16 mg/dL 7-18 [facility] Thin prep Papanicolaou smear with manual screeningOrdered By: Arnulfo English on 07-04-2023 Thin prep Papanicolaou smear with manual screening 7 5-15 [facility] Basophil percentageOrdered B y: Arnulfo English on 05-23-2023 Bilirubin [Mass/Vol] 0.30 mg/dL 0.20-1.00 [facility] Comment on above: For patients on eltr ombopag therapy, use of Dimension [place] TBIL is not recommended. Protein [Mass/Vol] 7.0 g/dL 6.4-8.2 [facility] Direct bilirubinOrdered By: Arnulfo English on 05-23-2023 Bilirubin.direct [Mass/Vol] 0.12 mg/dL 0.00-0.30 [facility] Laboratory - Chemistry and C hemistry - challengeOrdered By: Arnulfo English on 05-23-2023 ALP [Catalytic activity/Vol] 95 U/L 45-117 [facility] ALT [Catalytic activity/Vol] 31 U/L 13-56 [facility] Free T4 [Mass/Vol] 1.09 ng/dL 0.76-1.46 [facility] Globulin (S) [Mass/Vol] 3.6 g/dL 2.2-4.2 [facility] No Panel InformationOrdered By: Arnulfo English on 05-23-2023 Thyroid Stimulating Hormone (TSH) 8.94 uIU/mL 0.358-3.74 [facility] Serum or plasma albumin merlyn urement (mass/volume)Ordered By: Arnulfo English on 05-23-2023 Albumin [Mass/Vol] 3.4 g/dL 3.2-5.0 [facility] Thin prep Papanicolaou smear with manual screeningOrdered By: Arnulfo English on 05-23-2023 Thin prep Papanicolaou smear with manual screening 38 U/L 15-37 [facility] Basophil percentageOrdered B y: Arnulfo English on 02-21-2023 Bilirubin [Mass/Vol] 0.30 mg/dL 0.20-1.00 [facility] Comment on above: For patients on eltr ombopag therapy, use of Dimension [place] TBIL is not recommended. Protein [Mass/Vol] 6.8 g/dL 6.4-8.2 [facility] Direct bilirubinOrdered By: Arnulfo English on 02-21-2023 Bilirubin.direct [Mass/Vol] 0.09 mg/dL 0.00-0.30 [facility] Laboratory - Chemistry and C hemistry - challengeOrdered By: Arnulfo English on 02-21-2023 ALP [Catalytic activity/Vol] 105 U/L 45-117 [facility] ALT [Catalytic activity/Vol] 26 U/L 13-56 [facility] Free T4 [Mass/Vol] 0.94 ng/dL 0.76-1.46 [facility] Globulin (S) [Mass/Vol] 3.7 g/dL 2.2-4.2 [facility] No Panel InformationOrdered By: Arnulfo English on 02-21-2023 Thyroid Stimulating Hormone (TSH) 11.20 uIU/mL 0.358-3.74 [facility] Serum or plasma albumin merlyn urement (mass/volume)Ordered By: Arnulfo English on 02-21-2023 Albumin [Mass/Vol] 3.1 g/dL 3.2-5.0 [facility] Thin prep Papanicolaou smear with manual screeningOrdered By: Arnulfo English on 02-21-2023 Thin prep Papanicolaou smear with manual screening 34 U/L 15-37 [facility] Basophil percentageOrdered B y: Arnulfo English on 01-09-2023 Chloride [Moles/Vol] 109 mmol/L 98-107 [facility] Glucose [Mass/Vol] 90 mg/dL 74-106 [facility] Potassium [Moles/Vol] 4.0 mmol/L 3.5-5.1 [facility] Sodium [Moles/Vol] 141 mmol/L 136-145 [facility] WBC (Bld) [#/Vol] 5.1 10*3/uL 4.4-11.0 [facility] Blood erythrocytes count (nu mber/volume)Ordered By: Arnulfo English on 01-09-2023 RBC (Bld) [#/Vol] 3.93 10*6/uL 4.2-5.4 [facility] Blood hemoglobin measurement (mass/volume)Ordered By: Arnulfo English on 01-09-2023 Hemoglobin (Bld) [Mass/Vol] 11.0 g/dL 12.0-15.0 [facility] Blood platelet mean volumeOr dered By: Arnulfo English on 01-09-2023 Platelet mean volume (Bld) [Entitic vol] 11.7 fL 6.2-12.0 [facility] Determination of erythrocyte mean corpuscular volume (MCV)Ordered By: Arnulfo English on 01-09-2023 MCV (RBC) [Entitic vol] 90.1 fL 81-99 [facility] Hematocrit Auto (Bld) [Volum e fraction]Ordered By: Arnulfo English on 01-09-2023 Hematocrit (Bld) [Volume fraction] 35.4 % 37-47 [facility] Laboratory - Chemistry and C hemistry - challengeOrdered By: Arnulfo English on 01-09-2023 CO2 [Moles/Vol] 27.0 mmol/L 21.0-32.0 [facility] Free T4 [Mass/Vol] 1.52 ng/dL 0.76-1.46 [facility] Urea nitrogen/Creatinine [Mass ratio] 31.9 mg/mg 10-20 [facility] - Hematology and Cell countsOrdered By: Arnulfo English on 01-09-2023 Erythrocyte distribution width (RBC) [Entitic vol] 45.4 fL 35.1-43.9 [facility] Erythrocyte distribution width (RBC) [Ratio] 13.8 % 11.6-14.6 [facility] MCH (RBC) [Entitic mass] 28.0 pg 27.0-32.0 [facility] MCHC Auto (RBC) [Mass/Vol]Or dered By: Arnulfo English on 01-09-2023 MCHC (RBC) [Mass/Vol] 31.1 g/dL 32-36 [facility] No Panel InformationOrdered By: Arnulfo English on 01-09-2023 Estimated GFR (MDRD) Amer 149 mL/min >60 [facility] Comment on above: GFR Calc Estimated GFR (MDRD) Non-Af Amer 123 mL/min >60 [facility] Comment on above: Non- GFR Calc Thyroid Stimulating Hormone (TSH) 0.20 uIU/mL 0.358-3.74 [facility] Platelets bldOrdered By: Kota English on 01-09-2023 Platelets (Bld) [#/Vol] 215 10*3/uL 150-450 [facility] Serum or plasma calcium merlyn urement (mass/volume)Ordered By: Arnulfo English on 01-09-2023 Calcium [Mass/Vol] 8.8 mg/dL 8.5-10.1 [facility] Serum or plasma creatinine m easurement (mass/volume)Ordered By: Arnulfo English on 01-09-2023 Creatinine [Mass/Vol] 0.50 mg/dL 0.55-1.02 [facility] Comment on above: The validity of the calculated GFR & GFRAA in patients over 70 years has not been determined. Clinical correlation is essential. Serum or plasma urea nitroge n measurement (mass/volume)Ordered By: Arnulfo English on 01-09-2023 Urea nitrogen [Mass/Vol] 16 mg/dL 7-18 [facility] Thin prep Papanicolaou smear with manual screeningOrdered By: Arnulfo English on 01-09-2023 Thin prep Papanicolaou smear with manual screening 5 5-15 [facility] Basophil percentageOrdered B y: Arnulfo English on 12-12-2022 Chloride [Moles/Vol] 107 mmol/L 98-107 [facility] Glucose [Mass/Vol] 88 mg/dL 74-106 [facility] Potassium [Moles/Vol] 4.0 mmol/L 3.5-5.1 [facility] Sodium [Moles/Vol] 138 mmol/L 136-145 [facility] WBC (Bld) [#/Vol] 5.3 10*3/uL 4.4-11.0 [facility] Blood erythrocytes count (nu mber/volume)Ordered By: Arnulfo English on 12-12-2022 RBC (Bld) [#/Vol] 4.12 10*6/uL 4.2-5.4 [facility] Blood hemoglobin measurement (mass/volume)Ordered By: Arnulfo English on 12-12-2022 Hemoglobin (Bld) [Mass/Vol] 11.2 g/dL 12.0-15.0 [facility] Blood platelet mean volumeOr dered By: Arnulfo English on 12-12-2022 Platelet mean volume (Bld) [Entitic vol] 11.3 fL 6.2-12.0 [facility] Determination of erythrocyte mean corpuscular volume (MCV)Ordered By: Arnulfo English on 12-12-2022 MCV (RBC) [Entitic vol] 90.3 fL 81-99 [facility] Hematocrit Auto (Bld) [Volum e fraction]Ordered By: Arnulfo English on 12-12-2022 Hematocrit (Bld) [Volume fraction] 37.2 % 37-47 [facility] - Chemistry and C hemistry - challengeOrdered By: Arnulfo English on 12-12-2022 CO2 [Moles/Vol] 28.0 mmol/L 21.0-32.0 [facility] Urea nitrogen/Creatinine [Mass ratio] 25.6 mg/mg 10-20 [facility] - Hematology and Cell countsOrdered By: Arnulfo English on 12-12-2022 Erythrocyte distribution width (RBC) [Entitic vol] 45.2 fL 35.1-43.9 [facility] Erythrocyte distribution width (RBC) [Ratio] 13.6 % 11.6-14.6 [facility] MCH (RBC) [Entitic mass] 27.2 pg 27.0-32.0 [facility] MCHC Auto (RBC) [Mass/Vol]Or dered By: Arnulfo English on 12-12-2022 MCHC (RBC) [Mass/Vol] 30.1 g/dL 32-36 [facility] No Panel InformationOrdered By: Arnulfo English on 12-12-2022 Estimated GFR (MDRD) Amer 147 mL/min >60 [facility] Comment on above: GFR Calc Estimated GFR (MDRD) Non-Af Amer 122 mL/min >60 [facility] Comment on above: Non- GFR Calc Platelets bldOrdered By: Kota English on 12-12-2022 Platelets (Bld) [#/Vol] 226 10*3/uL 150-450 [facility] Serum or plasma calcium merlyn urement (mass/volume)Ordered By: Arnulfo English on 12-12-2022 Calcium [Mass/Vol] 9.1 mg/dL 8.5-10.1 [facility] Serum or plasma creatinine m easurement (mass/volume)Ordered By: Arnulfo English on 12-12-2022 Creatinine [Mass/Vol] 0.51 mg/dL 0.55-1.02 [facility] Comment on above: The validity of the calculated GFR & GFRAA in patients over 70 years has not been determined. Clinical correlation is essential. Serum or plasma urea nitroge n measurement (mass/volume)Ordered By: Arnulfo English on 12-12-2022 Urea nitrogen [Mass/Vol] 13 mg/dL 7-18 [facility] Thin prep Papanicolaou smear with manual screeningOrdered By: Arnulfo English on 12-12-2022 Thin prep Papanicolaou smear with manual screening 3 5-15 [facility] Basophil percentageOrdered B y: Arnulfo English on 11-14-2022 Chloride [Moles/Vol] 108 mmol/L 98-107 [facility] Glucose [Mass/Vol] 91 mg/dL 74-106 [facility] Potassium [Moles/Vol] 4.0 mmol/L 3.5-5.1 [facility] Sodium [Moles/Vol] 140 mmol/L 136-145 [facility] WBC (Bld) [#/Vol] 6.0 10*3/uL 4.4-11.0 [facility] Blood erythrocytes count (nu mber/volume)Ordered By: Arnulfo English on 11-14-2022 RBC (Bld) [#/Vol] 4.05 10*6/uL 4.2-5.4 [facility] Blood hemoglobin measurement (mass/volume)Ordered By: Arnulfo English on 11-14-2022 Hemoglobin (Bld) [Mass/Vol] 11.2 g/dL 12.0-15.0 [facility] Blood platelet mean volumeOr dered By: Arnulfo English on 11-14-2022 Platelet mean volume (Bld) [Entitic vol] 11.8 fL 6.2-12.0 [facility] Determination of erythrocyte mean corpuscular volume (MCV)Ordered By: Arnulfo English on 11-14-2022 MCV (RBC) [Entitic vol] 90.9 fL 81-99 [facility] Hematocrit Auto (Bld) [Volum e fraction]Ordered By: Arnulfo English on 11-14-2022 Hematocrit (Bld) [Volume fraction] 36.8 % 37-47 [facility] - Chemistry and C hemistry - challengeOrdered By: Arnulfo English on 11-14-2022 CO2 [Moles/Vol] 29.0 mmol/L 21.0-32.0 [facility] Urea nitrogen/Creatinine [Mass ratio] 33.0 mg/mg 10-20 [facility] - Hematology and Cell countsOrdered By: Arnulfo English on 11-14-2022 Erythrocyte distribution width (RBC) [Entitic vol] 46.6 fL 35.1-43.9 [facility] Erythrocyte distribution width (RBC) [Ratio] 13.9 % 11.6-14.6 [facility] MCH (RBC) [Entitic mass] 27.7 pg 27.0-32.0 [facility] MCHC Auto (RBC) [Mass/Vol]Or dered By: Arnulfo English on 11-14-2022 MCHC (RBC) [Mass/Vol] 30.4 g/dL 32-36 [facility] No Panel InformationOrdered By: Arnulfo English on 11-14-2022 Estimated GFR (MDRD) Amer 128 mL/min >60 [facility] Comment on above: GFR Calc Estimated GFR (MDRD) Non-Af Amer 105 mL/min >60 [facility] Comment on above: Non- GFR Calc Platelets bldOrdered By: Kota English on 11-14-2022 Platelets (Bld) [#/Vol] 230 10*3/uL 150-450 [facility] Serum or plasma calcium merlyn urement (mass/volume)Ordered By: Arnulfo English on 11-14-2022 Calcium [Mass/Vol] 9.2 mg/dL 8.5-10.1 [facility] Serum or plasma creatinine m easurement (mass/volume)Ordered By: Arnulfo English on 11-14-2022 Creatinine [Mass/Vol] 0.58 mg/dL 0.55-1.02 [facility] Comment on above: The validity of the calculated GFR & GFRAA in patients over 70 years has not been determined. Clinical correlation is essential. Serum or plasma urea nitroge n measurement (mass/volume)Ordered By: Arnulfo English on 11-14-2022 Urea nitrogen [Mass/Vol] 19 mg/dL 7-18 [facility] Thin prep Papanicolaou smear with manual screeningOrdered By: Arnulfo English on 11-14-2022 Thin prep Papanicolaou smear with manual screening 3 5-15 [facility] Basophil percentageOrdered B y: Arnulfo English on 10-17-2022 Chloride [Moles/Vol] 105 mmol/L 98-107 [facility] Glucose [Mass/Vol] 72 mg/dL 74-106 [facility] Potassium [Moles/Vol] 4.1 mmol/L 3.5-5.1 [facility] Sodium [Moles/Vol] 139 mmol/L 136-145 [facility] WBC (Bld) [#/Vol] 5.3 10*3/uL 4.4-11.0 [facility] Blood erythrocytes count (nu mber/volume)Ordered By: Arnulfo English on 10-17-2022 RBC (Bld) [#/Vol] 4.19 10*6/uL 4.2-5.4 [facility] Blood hemoglobin measurement (mass/volume)Ordered By: Arnulfo English on 10-17-2022 Hemoglobin (Bld) [Mass/Vol] 11.7 g/dL 12.0-15.0 [facility] Blood platelet mean volumeOr dered By: Arnulfo English on 10-17-2022 Platelet mean volume (Bld) [Entitic vol] 11.9 fL 6.2-12.0 [facility] Determination of erythrocyte mean corpuscular volume (MCV)Ordered By: Arnulfo English on 10-17-2022 MCV (RBC) [Entitic vol] 90.9 fL 81-99 [facility] Hematocrit Auto (Bld) [Volum e fraction]Ordered By: Arnulfo English on 10-17-2022 Hematocrit (Bld) [Volume fraction] 38.1 % 37-47 [facility] - Chemistry and C hemistry - challengeOrdered By: Arnulfo English on 10-17-2022 CO2 [Moles/Vol] 27.0 mmol/L 21.0-32.0 [facility] Urea nitrogen/Creatinine [Mass ratio] 25.3 mg/mg 10-20 [facility] - Hematology and Cell countsOrdered By: Arnulfo English on 10-17-2022 Erythrocyte distribution width (RBC) [Entitic vol] 46.3 fL 35.1-43.9 [facility] Erythrocyte distribution width (RBC) [Ratio] 13.9 % 11.6-14.6 [facility] MCH (RBC) [Entitic mass] 27.9 pg 27.0-32.0 [facility] MCHC Auto (RBC) [Mass/Vol]Or dered By: Arnulfo English on 10-17-2022 MCHC (RBC) [Mass/Vol] 30.7 g/dL 32-36 [facility] No Panel InformationOrdered By: Arnulfo English on 10-17-2022 Estimated GFR (MDRD) Amer 114 mL/min >60 [facility] Comment on above: GFR Calc Estimated GFR (MDRD) Non-Af Amer 95 mL/min >60 [facility] Comment on above: Non- GFR Calc Platelets bldOrdered By: Kota English on 10-17-2022 Platelets (Bld) [#/Vol] 247 10*3/uL 150-450 [facility] Serum or plasma calcium merlyn urement (mass/volume)Ordered By: Arnulfo English on 10-17-2022 Calcium [Mass/Vol] 9.5 mg/dL 8.5-10.1 [facility] Serum or plasma creatinine m easurement (mass/volume)Ordered By: Arnulfo English on 10-17-2022 Creatinine [Mass/Vol] 0.63 mg/dL 0.55-1.02 [facility] Comment on above: The validity of the calculated GFR & GFRAA in patients over 70 years has not been determined. Clinical correlation is essential. Serum or plasma urea nitroge n measurement (mass/volume)Ordered By: Arnulfo English on 10-17-2022 Urea nitrogen [Mass/Vol] 16 mg/dL 7-18 [facility] Thin prep Papanicolaou smear with manual screeningOrdered By: Arnulfo English on 10-17-2022 Thin prep Papanicolaou smear with manual screening 7 5-15 [facility] Basophil percentageOrdered B y: Billy Loja on 09-12-2022 Chloride [Moles/Vol] 106 mmol/L 98-107 [facility] Cholesterol [Mass/Vol] 112 mg/dL <200 [facility] Comment on above: <200 mg/dL Desirable 200-240 mg/dL Borderline >240 mg/dL High Risk Glucose [Mass/Vol] 85 mg/dL 74-106 [facility] Potassium [Moles/Vol] 3.9 mmol/L 3.5-5.1 [facility] Sodium [Moles/Vol] 139 mmol/L 136-145 [facility] Triglyceride [Mass/Vol] 56 mg/dL <199 [facility] Comment on above: The drugs N-Acetylcy steine and Metamizole may falsely depress this assay.Serum Triglycerides Reference Interval Normal <150 mg/dL Borderline high 150 - 199 mg/dL High 200 - 499 mg/dL Very High > or = 500 mg/dL WBC (Bld) [#/Vol] 5.4 10*3/uL 4.4-11.0 [facility] Blood erythrocytes count (nu mber/volume)Ordered By: Billy Loja on 09-12-2022 RBC (Bld) [#/Vol] 3.89 10*6/uL 4.2-5.4 [facility] Blood hemoglobin measurement (mass/volume)Ordered By: Billy Loja on 09-12-2022 Hemoglobin (Bld) [Mass/Vol] 10.9 g/dL 12.0-15.0 [facility] Blood platelet mean volumeOr dered By: Billy Loja on 09-12-2022 Platelet mean volume (Bld) [Entitic vol] 11.7 fL 6.2-12.0 [facility] Determination of erythrocyte mean corpuscular volume (MCV)Ordered By: Billy Loja on 09-12-2022 MCV (RBC) [Entitic vol] 90.0 fL 81-99 [facility] Hematocrit Auto (Bld) [Volum e fraction]Ordered By: Billy Loja on 09-12-2022 Hematocrit (Bld) [Volume fraction] 35.0 % 37-47 [facility] - Chemistry and C hemistry - challengeOrdered By: Billy Loja on 09-12-2022 CO2 [Moles/Vol] 26.0 mmol/L 21.0-32.0 [facility] Urea nitrogen/Creatinine [Mass ratio] 26.4 mg/mg 10-20 [facility] - Hematology and Cell countsOrdered By: Billy Loja on 09-12-2022 Erythrocyte distribution width (RBC) [Entitic vol] 46.3 fL 35.1-43.9 [facility] Erythrocyte distribution width (RBC) [Ratio] 14.0 % 11.6-14.6 [facility] MCH (RBC) [Entitic mass] 28.0 pg 27.0-32.0 [facility] MCHC Auto (RBC) [Mass/Vol]Or dered By: Billy Loja on 09-12-2022 MCHC (RBC) [Mass/Vol] 31.1 g/dL 32-36 [facility] No Panel InformationOrdered By: Billy Loja on 09-12-2022 Estimated GFR (MDRD) Amer 140 mL/min >60 [facility] Comment on above: GFR Calc Estimated GFR (MDRD) Non-Af Amer 116 mL/min >60 [facility] Comment on above: Non- GFR Calc Platelets bldOrdered By: Primo Loja on 09-12-2022 Platelets (Bld) [#/Vol] 224 10*3/uL 150-450 [facility] Serum or plasma calcium merlyn urement (mass/volume)Ordered By: Billy Loja on 09-12-2022 Calcium [Mass/Vol] 8.9 mg/dL 8.5-10.1 [facility] Serum or plasma cholesterol in HDL measurement (mass/volume)Ordered By: Billy Loja on 09-12-2022 Cholesterol in HDL [Mass/Vol] 66 mg/dL >40 [facility] Comment on above: The drugs N-Acetylcy steine and Metamizole may falsely depress this assay. Reference Range HDL <40 mg/dL Low HDL Cholesterol HDL >or= 60 mg/dL High HDL Cholesterol Serum or plasma cholesterol in VLDL measurement (mass/volume)Ordered By: Billy Loja on 09-12-2022 Cholesterol in VLDL [Mass/Vol] 11 mg/dL 5-40 [facility] Serum or plasma creatinine m easurement (mass/volume)Ordered By: Billy Loja on 09-12-2022 Creatinine [Mass/Vol] 0.53 mg/dL 0.55-1.02 [facility] Comment on above: The validity of the calculated GFR & GFRAA in patients over 70 years has not been determined. Clinical correlation is essential. Serum or plasma low density lipoprotein (LDL) cholesterol measurement (mass/volume)Ordered By: Billy Loja on 09-12-2022 Cholesterol in LDL [Mass/Vol] 35 mg/dL 0-130 [facility] Serum or plasma urea nitroge n measurement (mass/volume)Ordered By: Billy Loja on 09-12-2022 Urea nitrogen [Mass/Vol] 14 mg/dL 7-18 [facility] Thin prep Papanicolaou smear with manual screeningOrdered By: Billy Loja on 09-12-2022 Thin prep Papanicolaou smear with manual screening 7 5-15 [facility] Basophil percentageOrdered B y: Arnulfo English on 08-15-2022 Chloride [Moles/Vol] 106 mmol/L 98-107 [facility] Glucose [Mass/Vol] 75 mg/dL 74-106 [facility] Potassium [Moles/Vol] 3.7 mmol/L 3.5-5.1 [facility] Sodium [Moles/Vol] 138 mmol/L 136-145 [facility] WBC (Bld) [#/Vol] 5.4 10*3/uL 4.4-11.0 [facility] Blood erythrocytes count (nu mber/volume)Ordered By: Arnulfo English on 08-15-2022 RBC (Bld) [#/Vol] 4.11 10*6/uL 4.2-5.4 [facility] Blood hemoglobin measurement (mass/volume)Ordered By: Arnulfo English on 08-15-2022 Hemoglobin (Bld) [Mass/Vol] 11.6 g/dL 12.0-15.0 [facility] Blood platelet mean volumeOr dered By: Arnulfo English on 08-15-2022 Platelet mean volume (Bld) [Entitic vol] 12.0 fL 6.2-12.0 [facility] Determination of erythrocyte mean corpuscular volume (MCV)Ordered By: Arnulfo English on 08-15-2022 MCV (RBC) [Entitic vol] 90.3 fL 81-99 [facility] Hematocrit Auto (Bld) [Volum e fraction]Ordered By: Arnulfo English on 08-15-2022 Hematocrit (Bld) [Volume fraction] 37.1 % 37-47 [facility] - Chemistry and C hemistry - challengeOrdered By: Arnulfo English on 08-15-2022 CO2 [Moles/Vol] 24.0 mmol/L 21.0-32.0 [facility] Urea nitrogen/Creatinine [Mass ratio] 33.8 mg/mg 10-20 [facility] - Hematology and Cell countsOrdered By: Arnulfo English on 08-15-2022 Erythrocyte distribution width (RBC) [Entitic vol] 46.5 fL 35.1-43.9 [facility] Erythrocyte distribution width (RBC) [Ratio] 14.0 % 11.6-14.6 [facility] MCH (RBC) [Entitic mass] 28.2 pg 27.0-32.0 [facility] MCHC Auto (RBC) [Mass/Vol]Or dered By: Arnulfo English on 08-15-2022 MCHC (RBC) [Mass/Vol] 31.3 g/dL 32-36 [facility] No Panel InformationOrdered By: Arnulfo English on 08-15-2022 Estimated GFR (MDRD) Amer 160 mL/min >60 [facility] Comment on above: GFR Calc Estimated GFR (MDRD) Non-Af Amer 132 mL/min >60 [facility] Comment on above: Non- GFR Calc Platelets bldOrdered By: Kota English on 08-15-2022 Platelets (Bld) [#/Vol] 218 10*3/uL 150-450 [facility] Serum or plasma calcium merlyn urement (mass/volume)Ordered By: Arnulfo English on 08-15-2022 Calcium [Mass/Vol] 9.2 mg/dL 8.5-10.1 [facility] Serum or plasma creatinine m easurement (mass/volume)Ordered By: Arnulfo English on 08-15-2022 Creatinine [Mass/Vol] 0.47 mg/dL 0.55-1.02 [facility] Comment on above: The validity of the calculated GFR & GFRAA in patients over 70 years has not been determined. Clinical correlation is essential. Serum or plasma urea nitroge n measurement (mass/volume)Ordered By: Arnulfo English on 08-15-2022 Urea nitrogen [Mass/Vol] 16 mg/dL 7-18 [facility] Thin prep Papanicolaou smear with manual screeningOrdered By: Arnulfo English on 08-15-2022 Thin prep Papanicolaou smear with manual screening 8 5-15 [facility] Basophil percentageOrdered B y: Billy Loja on 07-11-2022 Chloride [Moles/Vol] 105 mmol/L 98-107 [facility] Glucose [Mass/Vol] 82 mg/dL 74-106 [facility] Potassium [Moles/Vol] 4.2 mmol/L 3.5-5.1 [facility] Sodium [Moles/Vol] 140 mmol/L 136-145 [facility] WBC (Bld) [#/Vol] 5.3 10*3/uL 4.4-11.0 [facility] Blood erythrocytes count (nu mber/volume)Ordered By: Billy Loja on 07-11-2022 RBC (Bld) [#/Vol] 4.10 10*6/uL 4.2-5.4 [facility] Blood hemoglobin measurement (mass/volume)Ordered By: Billy Loja on 07-11-2022 Hemoglobin (Bld) [Mass/Vol] 11.2 g/dL 12.0-15.0 [facility] Blood platelet mean volumeOr dered By: Billy Loja on 07-11-2022 Platelet mean volume (Bld) [Entitic vol] 12.1 fL 6.2-12.0 [facility] Determination of erythrocyte mean corpuscular volume (MCV)Ordered By: Billy Loja on 07-11-2022 MCV (RBC) [Entitic vol] 89.8 fL 81-99 [facility] Hematocrit Auto (Bld) [Volum e fraction]Ordered By: Billy Loja on 07-11-2022 Hematocrit (Bld) [Volume fraction] 36.8 % 37-47 [facility] - Chemistry and C hemistry - challengeOrdered By: Billy Loja on 07-11-2022 CO2 [Moles/Vol] 28.0 mmol/L 21.0-32.0 [facility] Urea nitrogen/Creatinine [Mass ratio] 31.6 mg/mg 10-20 [facility] - Hematology and Cell countsOrdered By: Billy Loja on 07-11-2022 Erythrocyte distribution width (RBC) [Entitic vol] 46.3 fL 35.1-43.9 [facility] Erythrocyte distribution width (RBC) [Ratio] 14.0 % 11.6-14.6 [facility] MCH (RBC) [Entitic mass] 27.3 pg 27.0-32.0 [facility] MCHC Auto (RBC) [Mass/Vol]Or dered By: Billy Loja on 07-11-2022 MCHC (RBC) [Mass/Vol] 30.4 g/dL 32-36 [facility] No Panel InformationOrdered By: Billy Loja on 07-11-2022 Estimated GFR (MDRD) Amer 138 mL/min >60 [facility] Comment on above: GFR Calc Estimated GFR (MDRD) Non-Af Amer 114 mL/min >60 [facility] Comment on above: Non- GFR Calc Platelets bldOrdered By: Primo Loja on 07-11-2022 Platelets (Bld) [#/Vol] 238 10*3/uL 150-450 [facility] Serum or plasma calcium merlyn urement (mass/volume)Ordered By: Billy Loja on 07-11-2022 Calcium [Mass/Vol] 8.8 mg/dL 8.5-10.1 [facility] Serum or plasma creatinine m easurement (mass/volume)Ordered By: Billy Loja on 07-11-2022 Creatinine [Mass/Vol] 0.54 mg/dL 0.55-1.02 [facility] Comment on above: The validity of the calculated GFR & GFRAA in patients over 70 years has not been determined. Clinical correlation is essential. Serum or plasma urea nitroge n measurement (mass/volume)Ordered By: Billy Loja on 07-11-2022 Urea nitrogen [Mass/Vol] 17 mg/dL 7-18 [facility] Thin prep Papanicolaou smear with manual screeningOrdered By: Billy Loja on 07-11-2022 Thin prep Papanicolaou smear with manual screening 7 5-15 [facility] Basophil percentageOrdered B y: Billy Loja on 06-13-2022 Chloride [Moles/Vol] 109 mmol/L 98-107 [facility] Glucose [Mass/Vol] 83 mg/dL 74-106 [facility] Potassium [Moles/Vol] 3.9 mmol/L 3.5-5.1 [facility] Sodium [Moles/Vol] 141 mmol/L 136-145 [facility] WBC (Bld) [#/Vol] 5.6 10*3/uL 4.4-11.0 [facility] Blood erythrocytes count (nu mber/volume)Ordered By: Billy Loja on 06-13-2022 RBC (Bld) [#/Vol] 4.07 10*6/uL 4.2-5.4 [facility] Blood hemoglobin measurement (mass/volume)Ordered By: Billy Loja on 06-13-2022 Hemoglobin (Bld) [Mass/Vol] 11.1 g/dL 12.0-15.0 [facility] Blood platelet mean volumeOr dered By: Billy Loja on 06-13-2022 Platelet mean volume (Bld) [Entitic vol] 11.9 fL 6.2-12.0 [facility] Determination of erythrocyte mean corpuscular volume (MCV)Ordered By: Billy Loja on 06-13-2022 MCV (RBC) [Entitic vol] 89.4 fL 81-99 [facility] Hematocrit Auto (Bld) [Volum e fraction]Ordered By: Billy Loja on 06-13-2022 Hematocrit (Bld) [Volume fraction] 36.4 % 37-47 [facility] - Chemistry and C hemistry - challengeOrdered By: Billy Loja on 06-13-2022 CO2 [Moles/Vol] 28.0 mmol/L 21.0-32.0 [facility] Urea nitrogen/Creatinine [Mass ratio] 36.3 mg/mg 10-20 [facility] Laboratory - Hematology and Cell countsOrdered By: Billy Loja on 06-13-2022 Erythrocyte distribution width (RBC) [Entitic vol] 45.2 fL 35.1-43.9 [facility] Erythrocyte distribution width (RBC) [Ratio] 13.8 % 11.6-14.6 [facility] MCH (RBC) [Entitic mass] 27.3 pg 27.0-32.0 [facility] MCHC Auto (RBC) [Mass/Vol]Or dered By: Billy Loja on 06-13-2022 MCHC (RBC) [Mass/Vol] 30.5 g/dL 32-36 [facility] No Panel InformationOrdered By: Billy Loja on 06-13-2022 Estimated GFR (MDRD) Amer 143 mL/min >60 [facility] Comment on above: GFR Calc Estimated GFR (MDRD) Non-Af Amer 118 mL/min >60 [facility] Comment on above: Non- GFR Calc Platelets bldOrdered By: Primo Loja on 06-13-2022 Platelets (Bld) [#/Vol] 233 10*3/uL 150-450 [facility] Serum or plasma calcium merlyn urement (mass/volume)Ordered By: Billy Loja on 06-13-2022 Calcium [Mass/Vol] 9.2 mg/dL 8.5-10.1 [facility] Serum or plasma creatinine m easurement (mass/volume)Ordered By: Billy Loja on 06-13-2022 Creatinine [Mass/Vol] 0.52 mg/dL 0.55-1.02 [facility] Comment on above: The validity of the calculated GFR & GFRAA in patients over 70 years has not been determined. Clinical correlation is essential. Serum or plasma urea nitroge n measurement (mass/volume)Ordered By: Billy Loja on 06-13-2022 Urea nitrogen [Mass/Vol] 19 mg/dL 7-18 [facility] Thin prep Papanicolaou smear with manual screeningOrdered By: Billy Loja on 06-13-2022 Thin prep Papanicolaou smear with manual screening 4 5-15 [facility] Basophil percentageon 2021 Chloride [Moles/Vol] 105 mmol/L 98-107 [facility] Work Phone: Glucose [Mass/Vol] 90 mg/dL 74-106 [facility] Work Phone: Potassium [Moles/Vol] 4.0 mmol/L 3.5-5.1 [facility] Work Phone: Sodium [Moles/Vol] 140 mmol/L 136-145 [facility] Work Phone: [phone] WBC (Bld) [#/Vol] 5.8 10*3/uL 4.4-11.0 [facility] Work Phone: Blood erythrocytes count (nu mber/volume)on 05-16-2022 RBC (Bld) [#/Vol] 4.15 10*6/uL 4.2-5.4 [facility] Work Phone: Blood hemoglobin measurement (mass/volume)on 05-16-2022 Hemoglobin (Bld) [Mass/Vol] 11.8 g/dL 12.0-15.0 [facility] Work Phone: Blood platelet mean volumeon 05-16-2022 Platelet mean volume (Bld) [Entitic vol] 11.8 fL 6.2-12.0 [facility] Work Phone: Determination of erythrocyte mean corpuscular volume (MCV)on 05-16-2022 MCV (RBC) [Entitic vol] 90.1 fL 81-99 [facility] Work Phone: Hematocrit Auto (Bld) [Volum e fraction]on 05-16-2022 Hematocrit (Bld) [Volume fraction] 37.4 % 37-47 [facility] Work Phone: Laboratory - Chemistry and C hemistry - challengeon 05-16-2022 CO2 [Moles/Vol] 27.0 mmol/L 21.0-32.0 [facility] Work Phone: Urea nitrogen/Creatinine [Mass ratio] 28.1 mg/mg 10-20 [facility] Work Phone: [phone] Laboratory - Hematology and Cell countson 05-16-2022 Erythrocyte distribution width (RBC) [Entitic vol] 47.0 fL 35.1-43.9 [facility] Work Phone: [phone] Erythrocyte distribution width (RBC) [Ratio] 14.2 % 11.6-14.6 [facility] Work Phone: MCH (RBC) [Entitic mass] 28.4 pg 27.0-32.0 [facility] Work Phone: MCHC Auto (RBC) [Mass/Vol]on 05-16-2022 MCHC (RBC) [Mass/Vol] 31.6 g/dL 32-36 [facility] Work Phone: No Panel Informationon 05-16 Estimated GFR (MDRD) Amer 130 mL/min >60 [facility] Work Phone: Comment on above: GFR Calc Estimated GFR (MDRD) Non-Af Amer 107 mL/min >60 [facility] Work Phone: Comment on above: Non- GFR Calc Platelets bldon 05-16-2022 Platelets (Bld) [#/Vol] 257 10*3/uL 150-450 [facility] Work Phone: [phone] Serum or plasma calcium merlyn urement (mass/volume)on 05-16-2022 Calcium [Mass/Vol] 9.3 mg/dL 8.5-10.1 [facility] Work Phone: Serum or plasma creatinine m easurement (mass/volume)on 05-16-2022 Creatinine [Mass/Vol] 0.57 mg/dL 0.55-1.02 [facility] Work Phone: Comment on above: The validity of the calculated GFR & GFRAA in patients over 70 years has not been determined. Clinical correlation is essential. Serum or plasma urea nitroge n measurement (mass/volume)on 05-16-2022 Urea nitrogen [Mass/Vol] 16 mg/dL 7-18 [facility] Work Phone: Thin prep Papanicolaou smear with manual screeningon 05-16-2022 Thin prep Papanicolaou smear with manual screening 8 5-15 [facility] Work Phone: CNOVon 05-15-2022 CNOV Office Visit (NECEED ) JUNIE JOHNSON ([id number]) 1935 F Date Time Provider Department 05/15/22 2:05 PM KATHY BROWN During your visit today, we recorded the following information about you: Pulse Blood pressure Weight 74/minute 108/54 55.6 kg Kathy Brown, VICE PRESIDENT BUSINESS DEVELOPMENT.CATH LAB 05/17/2022 9:25 AM Signed [facility] Initial Visit CEREBROVASCULAR HISTORY Junie Johnson is a 86 year old female who presents for a neurological evaluation. Previous patient of Dr. Hanks in [place] Previous visit with Dr. 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 May have been a transient hypertensive spike at the time. Recovered well with no other issues. 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 Continue to keep close tab on BP [...] Procedure Laterality Date COLONOSCOP W/ OR W/O [facility] SPEC 06/24/2001 sigmoidoscopy PAST SURGICAL HISTORY OF [...] alternating m (more content not included)... Normal [facility] Perez Basophil percentageon 2021 Chloride [Moles/Vol] 109 mmol/L 98-107 [facility] Work Phone: [phone] Glucose [Mass/Vol] 82 mg/dL 74-106 [facility] Work Phone: [phone] Potassium [Moles/Vol] 4.2 mmol/L 3.5-5.1 [facility] Work Phone: [phone] Sodium [Moles/Vol] 141 mmol/L 136-145 [facility] Work Phone: [phone] WBC (Bld) [#/Vol] 5.3 10*3/uL 4.4-11.0 [facility] Work Phone: [phone] Blood erythrocytes count (nu mber/volume)on 04-11-2022 RBC (Bld) [#/Vol] 4.04 10*6/uL 4.2-5.4 [facility] Work Phone: [phone] Blood hemoglobin measurement (mass/volume)on 04-11-2022 Hemoglobin (Bld) [Mass/Vol] 11.3 g/dL 12.0-15.0 [facility] Work Phone: [phone] Blood platelet mean volumeon 04-11-2022 Platelet mean volume (Bld) [Entitic vol] 11.6 fL 6.2-12.0 [facility] Work Phone: [phone] Determination of erythrocyte mean corpuscular volume (MCV)on 04-11-2022 MCV (RBC) [Entitic vol] 88.9 fL 81-99 [facility] Work Phone: [phone] Hematocrit Auto (Bld) [Volum e fraction]on 04-11-2022 Hematocrit (Bld) [Volume fraction] 35.9 % 37-47 [facility] Work Phone: Laboratory - Chemistry and C hemistry - challengeon 04-11-2022 CO2 [Moles/Vol] 29.0 mmol/L 21.0-32.0 [facility] Work Phone: [phone] Urea nitrogen/Creatinine [Mass ratio] 24.2 mg/mg 10-20 [facility] Work Phone: [phone] Laboratory - Hematology and Cell countson 04-11-2022 Erythrocyte distribution width (RBC) [Entitic vol] 47.4 fL 35.1-43.9 [facility] Work Phone: [phone] Erythrocyte distribution width (RBC) [Ratio] 14.5 % 11.6-14.6 [facility] Work Phone: [phone] MCH (RBC) [Entitic mass] 28.0 pg 27.0-32.0 [facility] Work Phone: [phone] MCHC Auto (RBC) [Mass/Vol]on 04-11-2022 MCHC (RBC) [Mass/Vol] 31.5 g/dL 32-36 [facility] Work Phone: No Panel Informationon 04-11 Estimated GFR (MDRD) Amer 127 mL/min >60 [facility] Work Phone: Comment on above: GFR Calc Estimated GFR (MDRD) Non-Af Amer 105 mL/min >60 [facility] Work Phone: Comment on above: Non- GFR Calc Platelets bldon 04-11-2022 Platelets (Bld) [#/Vol] 237 10*3/uL 150-450 [facility] Work Phone: [phone] Serum or plasma calcium merlyn urement (mass/volume)on 04-11-2022 Calcium [Mass/Vol] 9.2 mg/dL 8.5-10.1 [facility] Work Phone: [phone] Serum or plasma creatinine m easurement (mass/volume)on 04-11-2022 Creatinine [Mass/Vol] 0.58 mg/dL 0.55-1.02 [facility] Work Phone: [phone] Comment on above: The validity of the calculated GFR & GFRAA in patients over 70 years has not been determined. Clinical correlation is essential. Serum or plasma urea nitroge n measurement (mass/volume)on 04-11-2022 Urea nitrogen [Mass/Vol] 14 mg/dL 7-18 [facility] Work Phone: Thin prep Papanicolaou smear with manual screeningon 04-11-2022 Thin prep Papanicolaou smear with manual screening 3 5-15 [facility] Work Phone: [phone] Basophil percentageon 2021 Chloride [Moles/Vol] 108 mmol/L 98-107 [facility] Work Phone: [phone] Glucose [Mass/Vol] 82 mg/dL 74-106 [facility] Work Phone: [phone] Potassium [Moles/Vol] 4.0 mmol/L 3.5-5.1 [facility] Work Phone: [phone] Sodium [Moles/Vol] 140 mmol/L 136-145 [facility] Work Phone: [phone] WBC (Bld) [#/Vol] 5.1 10*3/uL 4.4-11.0 [facility] Work Phone: [phone] Blood erythrocytes count (nu mber/volume)on 03-14-2022 RBC (Bld) [#/Vol] 4.01 10*6/uL 4.2-5.4 [facility] Work Phone: [phone] Blood hemoglobin measurement (mass/volume)on 03-14-2022 Hemoglobin (Bld) [Mass/Vol] 11.0 g/dL 12.0-15.0 [facility] Work Phone: [phone] Blood platelet mean volumeon 03-14-2022 Platelet mean volume (Bld) [Entitic vol] 11.6 fL 6.2-12.0 [facility] Work Phone: [phone] Determination of erythrocyte mean corpuscular volume (MCV)on 03-14-2022 MCV (RBC) [Entitic vol] 89.3 fL 81-99 [facility] Work Phone: [phone] Hematocrit Auto (Bld) [Volum e fraction]on 03-14-2022 Hematocrit (Bld) [Volume fraction] 35.8 % 37-47 [facility] Work Phone: [phone] Laboratory - Chemistry and C hemistry - challengeon 03-14-2022 CO2 [Moles/Vol] 26.0 mmol/L 21.0-32.0 [facility] Work Phone: [phone] Urea nitrogen/Creatinine [Mass ratio] 31.0 mg/mg 10-20 [facility] Work Phone: [phone] Laboratory - Hematology and Cell countson 03-14-2022 Erythrocyte distribution width (RBC) [Entitic vol] 46.7 fL 35.1-43.9 [facility] Work Phone: [phone] Erythrocyte distribution width (RBC) [Ratio] 14.5 % 11.6-14.6 [facility] Work Phone: [phone] MCH (RBC) [Entitic mass] 27.4 pg 27.0-32.0 [facility] Work Phone: [phone] MCHC Auto (RBC) [Mass/Vol]on 03-14-2022 MCHC (RBC) [Mass/Vol] 30.7 g/dL 32-36 [facility] Work Phone: [phone] No Panel Informationon 03-14 Estimated GFR (MDRD) Amer 119 mL/min >60 [facility] Work Phone: [phone] Comment on above: GFR Calc Estimated GFR (MDRD) Non-Af Amer 98 mL/min >60 [facility] Work Phone: [phone] Comment on above: Non- GFR Calc Platelets bldon 03-14-2022 Platelets (Bld) [#/Vol] 235 10*3/uL 150-450 [facility] Work Phone: [phone] Serum or plasma calcium merlyn urement (mass/volume)on 03-14-2022 Calcium [Mass/Vol] 9.4 mg/dL 8.5-10.1 [facility] Work Phone: Serum or plasma creatinine m easurement (mass/volume)on 03-14-2022 Creatinine [Mass/Vol] 0.61 mg/dL 0.55-1.02 [facility] Work Phone: [phone] Comment on above: The validity of the calculated GFR & GFRAA in patients over 70 years has not been determined. Clinical correlation is essential. Serum or plasma urea nitroge n measurement (mass/volume)on 03-14-2022 Urea nitrogen [Mass/Vol] 19 mg/dL 7-18 [facility] Work Phone: [phone] Thin prep Papanicolaou smear with manual screeningon 03-14-2022 Thin prep Papanicolaou smear with manual screening 6 5-15 [facility] Work Phone: [phone] No Panel Informationon 03-08 Thyroid Stimulating Hormone (TSH) 0.53 uIU/mL 0.358-3.74 [facility] Work Phone: Basophil percentageon 2021 Chloride [Moles/Vol] 108 mmol/L 98-107 [facility] Work Phone: Glucose [Mass/Vol] 86 mg/dL 74-106 [facility] Work Phone: [phone] Potassium [Moles/Vol] 4.1 mmol/L 3.5-5.1 [facility] Work Phone: [phone] Sodium [Moles/Vol] 141 mmol/L 136-145 [facility] Work Phone: [phone] WBC (Bld) [#/Vol] 5.3 10*3/uL 4.4-11.0 [facility] Work Phone: [phone] Blood erythrocytes count (nu mber/volume)on 02-14-2022 RBC (Bld) [#/Vol] 4.18 10*6/uL 4.2-5.4 [facility] Work Phone: [phone] Blood hemoglobin measurement (mass/volume)on 02-14-2022 Hemoglobin (Bld) [Mass/Vol] 11.4 g/dL 12.0-15.0 [facility] Work Phone: [phone] Blood platelet mean volumeon 02-14-2022 Platelet mean volume (Bld) [Entitic vol] 11.3 fL 6.2-12.0 [facility] Work Phone: [phone] Determination of erythrocyte mean corpuscular volume (MCV)on 02-14-2022 MCV (RBC) [Entitic vol] 87.1 fL 81-99 [facility] Work Phone: [phone] Hematocrit Auto (Bld) [Volum e fraction]on 02-14-2022 Hematocrit (Bld) [Volume fraction] 36.4 % 37-47 [facility] Work Phone: [phone] Laboratory - Chemistry and C hemistry - challengeon 02-14-2022 CO2 [Moles/Vol] 27.0 mmol/L 21.0-32.0 [facility] Work Phone: [phone] Urea nitrogen/Creatinine [Mass ratio] 25.0 mg/mg 10-20 [facility] Work Phone: [phone] Laboratory - Hematology and Cell countson 02-14-2022 Erythrocyte distribution width (RBC) [Entitic vol] 46.2 fL 35.1-43.9 [facility] Work Phone: [phone] Erythrocyte distribution width (RBC) [Ratio] 14.4 % 11.6-14.6 [facility] Work Phone: [phone] MCH (RBC) [Entitic mass] 27.3 pg 27.0-32.0 [facility] Work Phone: [phone] MCHC Auto (RBC) [Mass/Vol]on 02-14-2022 MCHC (RBC) [Mass/Vol] 31.3 g/dL 32-36 [facility] Work Phone: [phone] No Panel Informationon 02-14 Estimated GFR (MDRD) Amer 143 mL/min >60 [facility] Work Phone: [phone] Comment on above: GFR Calc Estimated GFR (MDRD) Non-Af Amer 119 mL/min >60 [facility] Work Phone: [phone] Comment on above: Non- GFR Calc Platelets bldon 02-14-2022 Platelets (Bld) [#/Vol] 240 10*3/uL 150-450 [facility] Work Phone: Serum or plasma calcium merlyn urement (mass/volume)on 02-14-2022 Calcium [Mass/Vol] 9.0 mg/dL 8.5-10.1 [facility] Work Phone: Serum or plasma creatinine m easurement (mass/volume)on 02-14-2022 Creatinine [Mass/Vol] 0.52 mg/dL 0.55-1.02 [facility] Work Phone: Comment on above: The validity of the calculated GFR & GFRAA in patients over 70 years has not been determined. Clinical correlation is essential. Serum or plasma urea nitroge n measurement (mass/volume)on 02-14-2022 Urea nitrogen [Mass/Vol] 13 mg/dL 7-18 [facility] Work Phone: Thin prep Papanicolaou smear with manual screeningon 02-14-2022 Thin prep Papanicolaou smear with manual screening 6 5-15 [facility] Work Phone: Basophil percentageon 2021 Chloride [Moles/Vol] 108 mmol/L 98-107 [facility] Work Phone: [phone] Glucose [Mass/Vol] 86 mg/dL 74-106 [facility] Work Phone: Potassium [Moles/Vol] 3.8 mmol/L 3.5-5.1 [facility] Work Phone: [phone] Sodium [Moles/Vol] 140 mmol/L 136-145 [facility] Work Phone: [phone] WBC (Bld) [#/Vol] 5.4 10*3/uL 4.4-11.0 [facility] Work Phone: Blood erythrocytes count (nu mber/volume)on 01-10-2022 RBC (Bld) [#/Vol] 4.02 10*6/uL 4.2-5.4 [facility] Work Phone: [phone] Blood hemoglobin measurement (mass/volume)on 01-10-2022 Hemoglobin (Bld) [Mass/Vol] 11.0 g/dL 12.0-15.0 [facility] Work Phone: [phone] Blood platelet mean volumeon 01-10-2022 Platelet mean volume (Bld) [Entitic vol] 11.8 fL 6.2-12.0 [facility] Work Phone: [phone] Determination of erythrocyte mean corpuscular volume (MCV)on 01-10-2022 MCV (RBC) [Entitic vol] 86.8 fL 81-99 [facility] Work Phone: [phone] Hematocrit Auto (Bld) [Volum e fraction]on 01-10-2022 Hematocrit (Bld) [Volume fraction] 34.9 % 37-47 [facility] Work Phone: [phone] Laboratory - Chemistry and C hemistry - challengeon 01-10-2022 CO2 [Moles/Vol] 26.0 mmol/L 21.0-32.0 [facility] Work Phone: [phone] Free T4 [Mass/Vol] 1.69 ng/dL 0.76-1.46 [facility] Work Phone: [phone] T4 [Mass/Vol] 12.9 ug/dL 4.8-13.9 [facility] Work Phone: [phone] Urea nitrogen/Creatinine [Mass ratio] 27.3 mg/mg 10-20 [facility] Work Phone: [phone] Laboratory - Hematology and Cell countson 01-10-2022 Erythrocyte distribution width (RBC) [Entitic vol] 42.9 fL 35.1-43.9 [facility] Work Phone: [phone] Erythrocyte distribution width (RBC) [Ratio] 13.4 % 11.6-14.6 [facility] Work Phone: [phone] MCH (RBC) [Entitic mass] 27.4 pg 27.0-32.0 [facility] Work Phone: [phone] MCHC Auto (RBC) [Mass/Vol]on 01-10-2022 MCHC (RBC) [Mass/Vol] 31.5 g/dL 32-36 [facility] Work Phone: No Panel Informationon 01-10 Estimated GFR (MDRD) Amer 146 mL/min >60 [facility] Work Phone: Comment on above: GFR Calc Estimated GFR (MDRD) Non-Af Amer 121 mL/min >60 [facility] Work Phone: Comment on above: Non- GFR Calc Thyroid Stimulating Hormone (TSH) 0.03 uIU/mL 0.358-3.74 [facility] Work Phone: Platelets bldon 01-10-2022 Platelets (Bld) [#/Vol] 231 10*3/uL 150-450 [facility] Work Phone: Serum or plasma calcium merlyn urement (mass/volume)on 01-10-2022 Calcium [Mass/Vol] 9.1 mg/dL 8.5-10.1 [facility] Work Phone: Serum or plasma creatinine m easurement (mass/volume)on 01-10-2022 Creatinine [Mass/Vol] 0.51 mg/dL 0.55-1.02 [facility] Work Phone: Comment on above: The validity of the calculated GFR & GFRAA in patients over 70 years has not been determined. Clinical correlation is essential. Serum or plasma urea nitroge n measurement (mass/volume)on 01-10-2022 Urea nitrogen [Mass/Vol] 14 mg/dL 7-18 [facility] Work Phone: Thin prep Papanicolaou smear with manual screeningon 01-10-2022 Thin prep Papanicolaou smear with manual screening 6 5-15 [facility] Work Phone: Basophil percentageon 2021 Chloride [Moles/Vol] 109 mmol/L 98-107 [facility] Work Phone: Glucose [Mass/Vol] 85 mg/dL 74-106 [facility] Work Phone: Potassium [Moles/Vol] 4.0 mmol/L 3.5-5.1 [facility] Work Phone: [phone] Sodium [Moles/Vol] 141 mmol/L 136-145 [facility] Work Phone: [phone] WBC (Bld) [#/Vol] 5.3 10*3/uL 4.4-11.0 [facility] Work Phone: [phone] Blood erythrocytes count (nu mber/volume)on 12-13-2021 RBC (Bld) [#/Vol] 4.01 10*6/uL 4.2-5.4 [facility] Work Phone: [phone] Blood hemoglobin measurement (mass/volume)on 12-13-2021 Hemoglobin (Bld) [Mass/Vol] 11.0 g/dL 12.0-15.0 [facility] Work Phone: [phone] Blood platelet mean volumeon 12-13-2021 Platelet mean volume (Bld) [Entitic vol] 11.5 fL 6.2-12.0 [facility] Work Phone: [phone] Determination of erythrocyte mean corpuscular volume (MCV)on 12-13-2021 MCV (RBC) [Entitic vol] 88.8 fL 81-99 [facility] Work Phone: [phone] Hematocrit Auto (Bld) [Volum e fraction]on 12-13-2021 Hematocrit (Bld) [Volume fraction] 35.6 % 37-47 [facility] Work Phone: [phone] Laboratory - Chemistry and C hemistry - challengeon 12-13-2021 CO2 [Moles/Vol] 27.0 mmol/L 21.0-32.0 [facility] Work Phone: [phone] Urea nitrogen/Creatinine [Mass ratio] 22.0 mg/mg 10-20 [facility] Work Phone: [phone] Laboratory - Hematology and Cell countson 12-13-2021 Erythrocyte distribution width (RBC) [Entitic vol] 43.9 fL 35.1-43.9 [facility] Work Phone: Erythrocyte distribution width (RBC) [Ratio] 13.4 % 11.6-14.6 [facility] Work Phone: MCH (RBC) [Entitic mass] 27.4 pg 27.0-32.0 [facility] Work Phone: MCHC Auto (RBC) [Mass/Vol]on 12-13-2021 MCHC (RBC) [Mass/Vol] 30.9 g/dL 32-36 [facility] Work Phone: No Panel Informationon 12-13 Estimated GFR (MDRD) Amer 124 mL/min >60 [facility] Work Phone: Comment on above: GFR Calc Estimated GFR (MDRD) Non-Af Amer 103 mL/min >60 [facility] Work Phone: Comment on above: Non- GFR Calc Platelets bldon 12-13-2021 Platelets (Bld) [#/Vol] 235 10*3/uL 150-450 [facility] Work Phone: Serum or plasma calcium merlyn urement (mass/volume)on 12-13-2021 Calcium [Mass/Vol] 9.1 mg/dL 8.5-10.1 [facility] Work Phone: Serum or plasma creatinine m easurement (mass/volume)on 12-13-2021 Creatinine [Mass/Vol] 0.59 mg/dL 0.55-1.02 [facility] Work Phone: Comment on above: The validity of the calculated GFR & GFRAA in patients over 70 years has not been determined. Clinical correlation is essential. Serum or plasma urea nitroge n measurement (mass/volume)on 12-13-2021 Urea nitrogen [Mass/Vol] 13 mg/dL 7-18 [facility] Work Phone: Thin prep Papanicolaou smear with manual screeningon 12-13-2021 Thin prep Papanicolaou smear with manual screening 5 5-15 [facility] Work Phone: [phone] Basophil percentageon 2021 Chloride [Moles/Vol] 110 mmol/L 98-[address] [facility] Work Phone: [phone] Glucose [Mass/Vol] 89 mg/dL 74-106 [facility] Work Phone: [phone] Potassium [Moles/Vol] 4.1 mmol/L 3.5-5.1 [facility] Work Phone: [phone] Sodium [Moles/Vol] 140 mmol/L 136-145 [facility] Work Phone: [phone] WBC (Bld) [#/Vol] 4.4 10*3/uL 4.4-11.0 [facility] Work Phone: [phone] Blood erythrocytes count (nu mber/volume)on 11-08-2021 RBC (Bld) [#/Vol] 4.01 10*6/uL 4.2-5.4 [facility] Work Phone: [phone] Blood hemoglobin measurement (mass/volume)on 11-08-2021 Hemoglobin (Bld) [Mass/Vol] 11.0 g/dL 12.0-15.0 [facility] Work Phone: [phone] Blood platelet mean volumeon 11-08-2021 Platelet mean volume (Bld) [Entitic vol] 10.8 fL 6.2-12.0 [facility] [facility] Work Phone: [phone] Determination of erythrocyte mean corpuscular volume (MCV)on 11-08-2021 MCV (RBC) [Entitic vol] 88.3 fL 81-99 [facility] Work Phone: [phone] Hematocrit Auto (Bld) [Volum e fraction]on 11-08-2021 Hematocrit (Bld) [Volume fraction] 35.4 % 37-47 [facility] Work Phone: [phone] Laboratory - Chemistry and C hemistry - challengeon 11-08-2021 CO2 [Moles/Vol] 28.0 mmol/L 21.0-32.0 [facility] Work Phone: [phone] Urea nitrogen/Creatinine [Mass ratio] 20.4 mg/mg 10-20 [facility] Work Phone: Laboratory - Hematology and Cell countson 11-08-2021 Erythrocyte distribution width (RBC) [Entitic vol] 45.1 fL 35.1-43.9 [facility] Work Phone: [phone] Erythrocyte distribution width (RBC) [Ratio] 14.0 % 11.6-14.6 [facility] Work Phone: [phone] MCH (RBC) [Entitic mass] 27.4 pg 27.0-32.0 [facility] Work Phone: [phone] MCHC Auto (RBC) [Mass/Vol]on 11-08-2021 MCHC (RBC) [Mass/Vol] 31.1 g/dL 32-36 [facility] Work Phone: [phone] No Panel Informationon 11-08 Estimated GFR (MDRD) Amer 125 mL/min >60 [facility] Work Phone: Comment on above: GFR Calc Estimated GFR (MDRD) Non-Af Amer 103 mL/min >60 [facility] Work Phone: Comment on above: Non- GFR Calc Platelets bldon 11-08-2021 Platelets (Bld) [#/Vol] 244 10*3/uL 150-450 [facility] Work Phone: [phone] Serum or plasma calcium merlyn urement (mass/volume)on 11-08-2021 Calcium [Mass/Vol] 9.1 mg/dL 8.5-10.1 [facility] Work Phone: [phone] Serum or plasma creatinine m easurement (mass/volume)on 11-08-2021 Creatinine [Mass/Vol] 0.59 mg/dL 0.55-1.02 [facility] Work Phone: Comment on above: The validity of the calculated GFR & GFRAA in patients over 70 years has not been determined. Clinical correlation is essential. Serum or plasma urea nitroge n measurement (mass/volume)on 11-08-2021 Urea nitrogen [Mass/Vol] 12 mg/dL 7-18 [facility] Work Phone: Thin prep Papanicolaou smear with manual screeningon 11-08-2021 Thin prep Papanicolaou smear with manual screening 2 5-15 [facility] Work Phone: Basophil percentageon 2021 Chloride [Moles/Vol] 107 mmol/L 98-107 [facility]: Glucose [Mass/Vol] 72 mg/dL 74-106 [facility] Work Phone: Potassium [Moles/Vol] 4.2 mmol/L 3.5-5.1 [facility]: Sodium [Moles/Vol] 140 mmol/L 136-145 [facility] Work Phone: [phone] WBC (Bld) [#/Vol] 5.0 10*3/uL 4.4-11.0 [facility] Work Phone: Blood erythrocytes count (nu mber/volume)on 10-11-2021 RBC (Bld) [#/Vol] 3.73 10*6/uL 4.2-5.4 [facility]: Blood hemoglobin measurement (mass/volume)on 10-11-2021 Hemoglobin (Bld) [Mass/Vol] 10.1 g/dL 12.0-15.0 [facility] Work Phone: Blood platelet mean volumeon 10-11-2021 Platelet mean volume (Bld) [Entitic vol] 11.5 fL 6.2-12.0 [facility] Work Phone: Determination of erythrocyte mean corpuscular volume (MCV)on 10-11-2021 MCV (RBC) [Entitic vol] 87.7 fL 81-99 [facility] Work Phone: Hematocrit Auto (Bld) [Volum e fraction]on 10-11-2021 Hematocrit (Bld) [Volume fraction] 32.7 % 37-47 [facility] Work Phone: Laboratory - Chemistry and C hemistry - challengeon 10-11-2021 CO2 [Moles/Vol] 25.0 mmol/L 21.0-32.0 [facility] Work Phone: [phone] Urea nitrogen/Creatinine [Mass ratio] 28.5 mg/mg 10-20 [facility] Work Phone: [phone] Laboratory - Hematology and Cell countson 10-11-2021 Erythrocyte distribution width (RBC) [Entitic vol] 46.8 fL 35.1-43.9 [facility] Work Phone: [phone] Erythrocyte distribution width (RBC) [Ratio] 14.6 % 11.6-14.6 [facility] Work Phone: MCH (RBC) [Entitic mass] 27.1 pg 27.0-32.0 [facility] Work Phone: [phone] MCHC Auto (RBC) [Mass/Vol]on 10-11-2021 MCHC (RBC) [Mass/Vol] 30.9 g/dL 32-36 [facility] Work Phone: No Panel Informationon 10-11 Estimated GFR (MDRD) Amer 142 mL/min >60 [facility] Work Phone: Comment on above: GFR Calc Estimated GFR (MDRD) Non-Af Amer 117 mL/min >60 [facility] Work Phone: Comment on above: Non- GFR Calc Platelets bldon 10-11-2021 Platelets (Bld) [#/Vol] 244 10*3/uL 150-450 [facility] Work Phone: [phone] Serum or plasma calcium merlyn urement (mass/volume)on 10-11-2021 Calcium [Mass/Vol] 8.9 mg/dL 8.5-10.1 [facility] Work Phone: [phone] Serum or plasma creatinine m easurement (mass/volume)on 10-11-2021 Creatinine [Mass/Vol] 0.53 mg/dL 0.55-1.02 [facility] Work Phone: Comment on above: The validity of the calculated GFR & GFRAA in patients over 70 years has not been determined. Clinical correlation is essential. Serum or plasma urea nitroge n measurement (mass/volume)on 10-11-2021 Urea nitrogen [Mass/Vol] 15 mg/dL 7-18 [facility] Work Phone: Thin prep Papanicolaou smear with manual screeningon 10-11-2021 Thin prep Papanicolaou smear with manual screening 8 5-15 [facility] Work Phone: Basophil percentageon 2021 Chloride [Moles/Vol] 106 mmol/L 98-107 [facility] Work Phone: [phone] Cholesterol [Mass/Vol] 104 mg/dL <200 [facility] Work Phone: [phone] Comment on above: <200 mg/dL Desirable 200-240 mg/dL Borderline >240 mg/dL High Risk Glucose [Mass/Vol] 84 mg/dL 74-106 [facility] Work Phone: [phone] Potassium [Moles/Vol] 3.9 mmol/L 3.5-5.1 [facility] Work Phone: [phone] Sodium [Moles/Vol] 138 mmol/L 136-145 [facility] Work Phone: [phone] Triglyceride [Mass/Vol] 70 mg/dL [facility] Work Phone: Comment on above: The drugs N-Acetylcy steine and Metamizole may falsely depress this assay.Serum Triglycerides Reference Interval Normal <150 mg/dL Borderline high 150 - 199 mg/dL High 200 - 499 mg/dL Very High > or = 500 mg/dL WBC (Bld) [#/Vol] 5.9 10*3/uL 4.4-11.0 [facility] Work Phone: [phone] Blood erythrocytes count (nu mber/volume)on 09-13-2021 RBC (Bld) [#/Vol] 3.83 10*6/uL 4.2-5.4 [facility] Work Phone: [phone] Blood hemoglobin measurement (mass/volume)on 09-13-2021 Hemoglobin (Bld) [Mass/Vol] 10.2 g/dL 12.0-15.0 [facility] Work Phone: [phone] Blood platelet mean volumeon 09-13-2021 Platelet mean volume (Bld) [Entitic vol] 10.9 fL 6.2-12.0 [facility] Work Phone: [phone] Determination of erythrocyte mean corpuscular volume (MCV)on 09-13-2021 MCV (RBC) [Entitic vol] 88.3 fL 81-99 [facility] Work Phone: [phone] Hematocrit Auto (Bld) [Volum e fraction]on 09-13-2021 Hematocrit (Bld) [Volume fraction] 33.8 % 37-47 [facility] Work Phone: [phone] Laboratory - Chemistry and C hemistry - challengeon 09-13-2021 CO2 [Moles/Vol] 27.0 mmol/L 21.0-32.0 [facility] Work Phone: [phone] Urea nitrogen/Creatinine [Mass ratio] 34.1 mg/mg 10-20 [facility] Work Phone: [phone] Laboratory - Hematology and Cell countson 09-13-2021 Erythrocyte distribution width (RBC) [Entitic vol] 44.5 fL 35.1-43.9 [facility] Work Phone: [phone] Erythrocyte distribution width (RBC) [Ratio] 13.6 % 11.6-14.6 [facility] Work Phone: [phone] MCH (RBC) [Entitic mass] 26.6 pg 27.0-32.0 [facility] Work Phone: [phone] MCHC Auto (RBC) [Mass/Vol]on 09-13-2021 MCHC (RBC) [Mass/Vol] 30.2 g/dL 32-36 [facility] Work Phone: [phone] No Panel Informationon 09-13 Estimated GFR (MDRD) Amer 125 mL/min >60 [facility] Work Phone: [phone] Comment on above: GFR Calc Estimated GFR (MDRD) Non-Af Amer 103 mL/min >60 [facility] Work Phone: Comment on above: Non- GFR Calc Platelets bldon 09-13-2021 Platelets (Bld) [#/Vol] 297 10*3/uL 150-450 [facility] Work Phone: [phone] Serum or plasma calcium merlyn urement (mass/volume)on 09-13-2021 Calcium [Mass/Vol] 8.8 mg/dL 8.5-10.1 [facility] Work Phone: [phone] Serum or plasma cholesterol in HDL measurement (mass/volume)on 09-13-2021 Cholesterol in HDL [Mass/Vol] 53 mg/dL [facility] Work Phone: Comment on above: The drugs N-Acetylcy steine and Metamizole may falsely depress this assay. Reference Range HDL <40 mg/dL Low HDL Cholesterol HDL >or= 60 mg/dL High HDL Cholesterol Serum or plasma cholesterol in VLDL measurement (mass/volume)on 09-13-2021 Cholesterol in VLDL [Mass/Vol] 14 mg/dL 5-40 [facility] Work Phone: [phone] Serum or plasma creatinine m easurement (mass/volume)on 09-13-2021 Creatinine [Mass/Vol] 0.59 mg/dL 0.55-1.02 [facility] Work Phone: Comment on above: The validity of the calculated GFR & GFRAA in patients over 70 years has not been determined. Clinical correlation is essential. Serum or plasma low density lipoprotein (LDL) cholesterol measurement (mass/volume)on 09-13-2021 Cholesterol in LDL [Mass/Vol] 37 mg/dL 0-130 [facility] Work Phone: [phone] Serum or plasma urea nitroge n measurement (mass/volume)on 09-13-2021 Urea nitrogen [Mass/Vol] 20 mg/dL 7-18 [facility] Work Phone: [phone] Thin prep Papanicolaou smear with manual screeningon 09-13-2021 Thin prep Papanicolaou smear with manual screening 5 5-15 [facility] Work Phone: [phone] Basophil percentageon 12-28- 2021 Chloride [Moles/Vol] 105 mmol/L 98-107 [facility] Work Phone: Glucose [Mass/Vol] 94 mg/dL 74-106 [facility] Work Phone: Comment on above: Please note revised GLUCOSE reference range effective 2017. Potassium [Moles/Vol] 4.1 mmol/L 3.5-5.1 [facility] Work Phone: Sodium [Moles/Vol] 140 mmol/L 136-145 [facility] Work Phone: [phone] WBC (Bld) [#/Vol] 6.9 10*3/uL 4.4-11.0 [facility] Work Phone: Blood erythrocytes count (nu mber/volume)on 08-16-2021 RBC (Bld) [#/Vol] 4.47 10*6/uL 4.2-5.4 [facility]: Blood hemoglobin measurement (mass/volume)on 08-16-2021 Hemoglobin (Bld) [Mass/Vol] 12.2 g/dL 12.0-15.0 [facility] Work Phone: Blood platelet mean volumeon 08-16-2021 Platelet mean volume (Bld) [Entitic vol] 11.0 fL 6.2-12.0 [facility] Work Phone: Determination of erythrocyte mean corpuscular volume (MCV)on 08-16-2021 MCV (RBC) [Entitic vol] 89.0 fL 81-99 [facility] Work Phone: [phone] Hematocrit Auto (Bld) [Volum e fraction]on 08-16-2021 Hematocrit (Bld) [Volume fraction] 39.8 % 37-47 [facility] Work Phone: Laboratory - Chemistry and C hemistry - challengeon 08-16-2021 CO2 [Moles/Vol] 30.0 mmol/L 21.0-32.0 [facility] Work Phone: Urea nitrogen/Creatinine [Mass ratio] 19.4 mg/mg 10-20 [facility] Work Phone: Laboratory - Hematology and Cell countson 08-16-2021 Erythrocyte distribution width (RBC) [Entitic vol] 44.2 fL 35.1-43.9 [facility] Work Phone: [phone] Erythrocyte distribution width (RBC) [Ratio] 13.5 % 11.6-14.6 [facility] Work Phone: [phone] MCH (RBC) [Entitic mass] 27.3 pg 27.0-32.0 [facility] Work Phone: [phone] MCHC Auto (RBC) [Mass/Vol]on 08-16-2021 MCHC (RBC) [Mass/Vol] 30.7 g/dL 32- [facility] Work Phone: No Panel Informationon 08-16 Estimated GFR (MDRD) Amer 130 mL/min >60 [facility] Work Phone: [phone] Comment on above: GFR Calc Estimated GFR (MDRD) Non-Af Amer 108 mL/min >60 [facility] Work Phone: Comment on above: Non- GFR Calc Platelets bldon 08-16-2021 Platelets (Bld) [#/Vol] 341 10*3/uL 150-450 [facility] Work Phone: [phone] Serum or plasma calcium merlyn urement (mass/volume)on 08-16-2021 Calcium [Mass/Vol] 9.3 mg/dL 8.5-10.1 [facility] Work Phone: [phone] Serum or plasma creatinine m easurement (mass/volume)on 08-16-2021 Creatinine [Mass/Vol] 0.57 mg/dL 0.55-1.02 [facility] Work Phone: [phone] Comment on above: The validity of the calculated GFR & GFRAA in patients over 70 years has not been determined. Clinical correlation is essential. Serum or plasma urea nitroge n measurement (mass/volume)on 08-16-2021 Urea nitrogen [Mass/Vol] 11 mg/dL 7-18 [facility] Work Phone: Thin prep Papanicolaou smear with manual screeningon 08-16-2021 Thin prep Papanicolaou smear with manual screening 5 5-15 [facility] Work Phone: CNOVon 06-28-2021 CNOV Office Visit ([facility] ) JUNIE JOHNSON ([id number]) 1935 F Date Time Provider Department 06/28/21 [...] Date: June 28, 2021 Patient Name: Junie Johnson HPI: This is Ms. Junie Johnson a 85 year old female who presents to [facility] for follow up of CVA. [...] for women, Target triglycerides <150 Daiana Brown APRN.[facility], Department of Neurology Referring Provider: FERCHO WHITEHEAD [[id number]] Allergies As of Date: 06/28/2021 Noted Allergy [...] Hypertension, unspecified type [I10] Order(s):CONSULT TO NEUROLOGY [9082] Order #: [id number]: 1 FUTURE Prescriptions as of 06/28/2021 - acetaminophen (TYLENOL) 325 mg cap Take by mouth. - SYNTHROID 100 mcg tablet Take 1 tablet by mouth once daily. BRAND NAME, Take on empty stomach - atorvastatin (LIPITOR) 40 mg tablet Ad (more content not included)... Normal [facility] Basic Panelon 10-23-2019 Creatinine [Mass/Vol] 0.59 mg/dL Normal 0.51-0.95 [facility] Comment on above: Result Comment: Use of this assay is not recommended for patients undergoing treatment with phenindione, due to the potential for falsely depressed results. Performed By: #### I ONCA #### [place] [id number] Anion gap [Moles/Vol] 11 mmol/L Normal 8-16 [facility] Comment on above: Performed By: #### I ONCA #### [place] [id number] CO2 [Moles/Vol] 24 mmol/L Normal 21-32 [facility] Comment on above: Performed By: #### I ONCA #### [facility] [address] [place] [address] Glucose [Mass/Vol] 89 mg/dL Normal 70-99 [facility] Comment on above: Performed By: #### I ONCA #### [facility] [address] [place] [address] Calcium [Mass/Vol] 8.4 mg/dL Low 8.5-10.1 [facility] Comment on above: Performed By: #### I ONCA #### [place] [address] Urea nitrogen [Mass/Vol] 18 mg/dL Normal 7-18 [facility] Comment on above: Performed By: #### I ONCA #### [place] [address] Chloride [Moles/Vol] 110 mmol/L High 98-107 [facility] Comment on above: Performed By: #### I ONCA #### [place] [address] Potassium [Moles/Vol] 3.9 mmol/L Normal 3.5-5.1 [facility] Comment on above: Performed By: #### I ONCA #### [place] [address] Sodium [Moles/Vol] 141 mmol/L Normal 136-145 [facility] Comment on above: Performed By: #### I ONCA #### [place] [address] Hemogram/Diffon 10-23-2019 Abs Immature Grans 0.02 thou/cmm Normal 0.00-0.05 [facility] Comment on above: Performed By: #### I ONCA #### [place] [address] Abs Neut (ANC) 3.18 thou/cmm Normal 1.56-6.13 [facility] Comment on above: Performed By: #### I ONCA #### [address] [place], [place] [address] Abs. Baso 0.04 thou/cmm Normal 0.01-0.08 [facility] Comment on above: Performed By: #### I ONCA #### [facility] [address] [place] [address] Abs. Barrow 0.75 thou/cmm High 0.27-0.70 [facility] Comment on above: Performed By: #### I ONCA #### [facility] [address] [place] [address] Basophils/100 WBC (Bld) 0.7 % Normal [facility] Comment on above: Performed By: #### I ONCA #### [facility] [address] [place] [address] Eosinophils (Bld) [#/Vol] 0.15 thou/cmm Normal 0.00-0.31 [facility] Comment on above: Performed By: #### I ONCA #### [place] [address] Eosinophils/100 WBC (Bld) 2.5 % Normal [facility] Comment on above: Performed By: #### I ONCA #### [place] [address] Erythrocyte distribution width (RBC) [Ratio] 13.5 % Normal 11.7-14.4 [facility] Comment on above: Performed By: #### I ONCA #### [place] [address] Hematocrit (Bld) [Volume fraction] 39.3 % Normal 34.1-44.9 [facility] Comment on above: Performed By: #### I ONCA #### [place] [address] Hemoglobin (Bld) [Mass/Vol] 12.4 g/dL Normal 11.2-15.7 [facility] Comment on above: Performed By: #### I ONCA #### [place] [address] Immature Grans 0.30 % Normal [facility] Comment on above: Performed By: #### I ONCA #### [facility] [address] [place], [place] [address] Lymphocytes (Bld) [#/Vol] 1.85 thou/cmm Normal 1.18-3.74 [facility] Comment on above: Performed By: #### I ONCA #### [facility] [address] [place], [place] [address] Lymphocytes/100 WBC (Bld) 30.9 % Normal [facility] Comment on above: Performed By: #### I ONCA #### [facility] [address] [place], [place] [address] MCH (RBC) [Entitic mass] 28.1 pg Normal 25.6-32.2 [facility] Comment on above: Performed By: #### I ONCA #### [facility] [address] [place], [place] [address] MCHC (RBC) [Mass/Vol] 31.6 % Normal 31.6-34.8 [facility] Comment on above: Performed By: #### I ONCA #### [facility] [address] [place], [place] [address] MCV (RBC) [Entitic vol] 88.9 fL Normal 79.4-94.8 [facility] Comment on above: Performed By: #### I ONCA #### [facility] [address] [place], [place] [address] Monocytes/100 WBC (Bld) 12.5 % Normal [facility] Comment on above: Performed By: #### I ONCA #### [facility] [address] [place], [place] [address] Platelet mean volume (Bld) [Entitic vol] 11.1 fL Normal 9.4-12.3 [facility] Comment on above: Performed By: #### I ONCA #### [facility] [address] [place], [place] [address] Platelets (Bld) [#/Vol] 215 thou/cmm Normal 182-369 [facility] Comment on above: Performed By: #### I ONCA #### [facility] [address] [place], [place] [address] RBC (Bld) [#/Vol] 4.42 mil/cmm Normal 3.93-5.22 [facility] Comment on above: Performed By: #### I ONCA #### [facility] [address] [place] [address] RDW SD 44.3 fl Normal 36.4-46.3 [facility] Comment on above: Performed By: #### I ONCA #### [facility] [address] [place] [address] Seg Neutrophil 53.1 % Normal [facility] Comment on above: Performed By: #### I ONCA #### [facility] [address] [place] [address] WBC (Bld) [#/Vol] 5.99 thou/cmm Normal 3.98-10.04 [facility] Comment on above: Performed By: #### I ONCA #### [facility] [address] [place] [address] Hgb A1con 10-23-2019 HbA1c (Bld) [Mass fraction] 120 mg/dl Normal [facility] Comment on above: Performed By: #### T &S #### [facility] [address] [place] [address] HbA1c (Bld) [Mass fraction] 5.8 % Normal 4.2-6.3 [facility] Comment on above: Result Comment: Meth od is National Glycohemoglobin Standardization Program (NGSP) compliant. Performed By: #### T &S #### [place] [address] Lipid Profileon 10-23-2019 Cholesterol in HDL [Mass/Vol] 62 mg/dL Normal >40 [facility] Comment on above: Performed By: #### I ONCA #### [place] [address] Cholesterol in LDL [Mass/Vol] 86 mg/dL Normal [facility] Comment on above: Result Comment: No C AD and with fewer than 2 CAD risk factors <160 mg/dL No CAD but with 2 or more CAD risk factors <130 mg/dL Definite CAD or other atherosclerotic disease <100 mg/dL Performed By: #### I ONCA #### [facility] [address] [place], [place] [address] Cholesterol in LDL/Cholesterol in HDL [Mass ratio] 1.4 Normal 0.6-3.6 [facility] Comment on above: Result Comment: LDL, VLDL,LDL/HDL, Invalid if Triglyceride >400 Performed By: #### I ONCA #### [facility] [address] [place], [place] [address] Cholesterol.total/Choles terol in HDL [Mass ratio] 2.7 {ratio} Normal 1.8-5.3 [facility] Comment on above: Performed By: #### I ONCA #### [facility] [address] [place] [address] Cholesterol [Mass/Vol] 169 mg/dL Normal 0-199 [facility] Comment on above: Result Comment: <200 Desirable 200-240 Borderline >240 High Performed By: #### I ONCA #### [address] [address] Cholesterol in VLDL [Mass/Vol] 21 mg/dL Normal <50 Desired [facility] Comment on above: Performed By: #### I ONCA #### [facility] [address] [place] [address] Triglyceride [Mass/Vol] 107 mg/dL Normal 0-149 [facility] Comment on above: Result Comment: < 20 0 Desirable Result invalid if not a fasting specimen. Performed By: #### I ONCA #### [facility] [address] [place], [place] [address] MDRD GFRon 10-23-2019 GFR/1.73 sq M predicted among non-blacks MDRD (S/P/Bld) [Vol rate/Area] mL/min/{1.73_m2} Normal >60mL/min/1.7 3m2 [facility] Comment on above: Result Comment: If t he patient is , multiply the result by 1.210. Performed By: #### C BCD1 #### [facility] [address] [place], [place] [address] Magnesium Bloodon 10-23-2019 Magnesium [Mass/Vol] 2.1 mg/dL Normal 1.6-2.6 [facility] Comment on above: Performed By: #### I ONCA #### [facility] [address] [place], [place] [address] Basic Panelon 10-22-2019 Creatinine [Mass/Vol] 0.65 mg/dL Normal 0.51-0.95 [facility] Comment on above: Result Comment: Use of this assay is not recommended for patients undergoing treatment with phenindione, due to the potential for falsely depressed results. Performed By: #### I ONCA #### [facility] [address] [place], [place] [address] Anion gap [Moles/Vol] 10 mmol/L Normal 8-16 [facility] Comment on above: Performed By: #### I ONCA #### [facility] [address] [place], [place] [address] Calcium [Mass/Vol] 8.5 mg/dL Normal 8.5-10.1 [facility] Comment on above: Performed By: #### I ONCA #### [facility] [address] [place], [place] [address] CO2 [Moles/Vol] 22 mmol/L Normal 21-32 [facility] Comment on above: Performed By: #### I ONCA #### [facility] [address] [place], [place] [address] Glucose [Mass/Vol] 83 mg/dL Normal 70-99 [facility] Comment on above: Performed By: #### I ONCA #### [facility] [address] [place], [place] [address] Urea nitrogen [Mass/Vol] 16 mg/dL Normal 7-18 [facility] Comment on above: Performed By: #### I ONCA #### [facility] [address] [place], [place] [address] Chloride [Moles/Vol] 111 mmol/L High 98-107 [facility] Comment on above: Performed By: #### I ONCA #### [facility] [address] [place], [place] [address] Potassium [Moles/Vol] 4.1 mmol/L Normal 3.5-5.1 [facility] Comment on above: Performed By: #### I ONCA #### [facility] [address] [place] [address] Sodium [Moles/Vol] 139 mmol/L Normal 136-145 [facility] Comment on above: Performed By: #### I ONCA #### [facility] [address] [place] [address] Hemogram/Diffon 10-22-2019 Abs Immature Grans 0.02 thou/cmm Normal 0.00-0.05 [facility] Comment on above: Performed By: #### I ONCA #### [facility] [address] [place] [address] Abs Neut (ANC) 3.79 thou/cmm Normal 1.56-6.13 [facility] Comment on above: Performed By: #### I ONCA #### [place] [address] Abs. Baso 0.04 thou/cmm Normal 0.01-0.08 [facility] Comment on above: Performed By: #### I ONCA #### [place] [address] Abs. Barrow 0.91 thou/cmm High 0.27-0.70 [facility] Comment on above: Performed By: #### I ONCA #### [place] [address] Basophils/100 WBC (Bld) 0.6 % Normal [facility] Comment on above: Performed By: #### I ONCA #### [facility] [address] [place] [address] Eosinophils (Bld) [#/Vol] 0.15 thou/cmm Normal 0.00-0.31 [facility] Comment on above: Performed By: #### I ONCA #### [place] [address] Eosinophils/100 WBC (Bld) 2.1 % Normal [facility] Comment on above: Performed By: #### I ONCA #### [address] [place], [place] [address] Erythrocyte distribution width (RBC) [Ratio] 13.6 % Normal 11.7-14.4 [facility] Comment on above: Performed By: #### I ONCA #### [facility] [address] [place] [address] Hematocrit (Bld) [Volume fraction] 38.6 % Normal 34.1-44.9 [facility] Comment on above: Performed By: #### I ONCA #### [facility] [address] [place] [address] Hemoglobin (Bld) [Mass/Vol] 11.9 g/dL Normal 11.2-15.7 [facility] Comment on above: Performed By: #### I ONCA #### [place] [address] Immature Grans 0.30 % Normal [facility] Comment on above: Performed By: #### I ONCA #### [place] [address] Lymphocytes (Bld) [#/Vol] 2.21 thou/cmm Normal 1.18-3.74 [facility] Comment on above: Performed By: #### I ONCA #### [place] [address] Lymphocytes/100 WBC (Bld) 31.0 % Normal [facility] Comment on above: Performed By: #### I ONCA #### [place] [address] MCH (RBC) [Entitic mass] 27.6 pg Normal 25.6-32.2 [facility] Comment on above: Performed By: #### I ONCA #### [facility] [address] [place] [address] MCHC (RBC) [Mass/Vol] 30.8 % Low 31.6-34.8 [facility] Comment on above: Performed By: #### I ONCA #### [place] [address] MCV (RBC) [Entitic vol] 89.6 fL Normal 79.4-94.8 [facility] Comment on above: Performed By: #### I ONCA #### [facility] [address] [place], [place] [address] Monocytes/100 WBC (Bld) 12.8 % Normal [facility] Comment on above: Performed By: #### I ONCA #### [facility] [address] [place], [place] [address] Platelet mean volume (Bld) [Entitic vol] 11.7 fL Normal 9.4-12.3 [facility] Comment on above: Performed By: #### I ONCA #### [facility] [address] [place], [place] [address] Platelets (Bld) [#/Vol] 201 thou/cmm Normal 182-369 [facility] Comment on above: Performed By: #### I ONCA #### [place] [address] RBC (Bld) [#/Vol] 4.31 mil/cmm Normal 3.93-5.22 [facility] Comment on above: Performed By: #### I ONCA #### [facility] [address] [place] [address] RDW SD 44.9 fl Normal 36.4-46.3 [facility] Comment on above: Performed By: #### I ONCA #### [address] [address] Seg Neutrophil 53.2 % Normal [facility] Comment on above: Performed By: #### I ONCA #### [facility] [address] [place], [place] [address] WBC (Bld) [#/Vol] 7.12 thou/cmm Normal 3.98-10.04 [facility] Comment on above: Performed By: #### I ONCA #### [facility] [address] [place] [address] Magnesium Bloodon 10-22-2019 Magnesium [Mass/Vol] 2.2 mg/dL Normal 1.6-2.6 [facility] Comment on above: Performed By: #### I ONCA #### [facility] [address] [place], [place] [address] TSH, 3rd generationon 2019 TSH, 3rd generation 1.450 uIU/mL Normal 0.358-3.740 [facility] Comment on above: Performed By: #### I ONCA #### [facility] [address] [place], [place] [address] Basic Panelon 10-21-2019 Creatinine [Mass/Vol] 0.55 mg/dL Normal 0.51-0.95 [facility] Comment on above: Result Comment: Use of this assay is not recommended for patients undergoing treatment with phenindione, due to the potential for falsely depressed results. Performed By: #### C BCD1 #### [facility] [address] [place], [place] [address] Anion gap [Moles/Vol] 9 mmol/L Normal 8-16 [facility] Comment on above: Performed By: #### C BCD1 #### [facility] [address] [place], [place] [address] CO2 [Moles/Vol] 25 mmol/L Normal 21-32 [facility] Comment on above: Performed By: #### C BCD1 #### [facility] [address] [place], [place] [address] Glucose [Mass/Vol] 87 mg/dL Normal 70-99 [facility] Comment on above: Performed By: #### C BCD1 #### [facility] [address] [place], [place] [address] Urea nitrogen [Mass/Vol] 9 mg/dL Normal 7-18 [facility] Comment on above: Performed By: #### C BCD1 #### [facility] [address] [place], [place] [address] Calcium [Mass/Vol] 8.1 mg/dL Low 8.5-10.1 [facility] Comment on above: Performed By: #### C BCD1 #### [facility] [address] [place], [place] [address] Chloride [Moles/Vol] 112 mmol/L High 98-107 [facility] Comment on above: Performed By: #### C BCD1 #### [address] [place], [place] [address] Potassium [Moles/Vol] 3.5 mmol/L Normal 3.5-5.1 [facility] Comment on above: Performed By: #### C BCD1 #### [facility] [address] [place], [place] [address] Sodium [Moles/Vol] 142 mmol/L Normal 136-145 [facility] Comment on above: Performed By: #### C BCD1 #### [facility] [address] [place], [place] [address] CT BRAIN WO IVCONon 10-21-[address] BRAIN WO IVCON * * *Final Report* * * DATE OF EXAM: Oct 21 2019 2:33PM [facility] 0504 - CT BRAIN WO IVCON / [...] surrounding vasogenic edema. No new intracranial findings. Tie Presser: LYLA Transcribe Date/Time: Oct 21 2019 2:37P Dictated by : EDY ALBA MD This examination was interpreted and the report reviewed and electronically signed by: EDY ALBA MD on Oct 21 2019 2:46PM EST Normal [facility] Hemogram/Diffon 10-21-2019 Abs Immature Grans 0.03 thou/cmm Normal 0.00-0.05 [facility] Comment on above: Performed By: #### C BCD1 #### [facility] [address] [place], [place] [address] Abs Neut (ANC) 5.10 thou/cmm Normal 1.56-6.13 [facility] Comment on above: Performed By: #### C BCD1 #### [facility] [address] [place] [address] Abs. Baso 0.03 thou/cmm Normal 0.01-0.08 [facility] Comment on above: Performed By: #### C BCD1 #### [facility] [address] [place] [address] Abs. Barrow 0.94 thou/cmm High 0.27-0.70 [facility] Comment on above: Performed By: #### C BCD1 #### [facility] [address] [place] [address] Basophils/100 WBC (Bld) 0.4 % Normal [facility] Comment on above: Performed By: #### C BCD1 #### [facility] [address] [place] [address] Eosinophils (Bld) [#/Vol] 0.07 thou/cmm Normal 0.00-0.31 [facility] Comment on above: Performed By: #### C BCD1 #### [facility] [address] [place] [address] Eosinophils/100 WBC (Bld) 0.9 % Normal [facility] Comment on above: Performed By: #### C BCD1 #### [facility] [address] [place] [address] Erythrocyte distribution width (RBC) [Ratio] 13.8 % Normal 11.7-14.4 [facility] Comment on above: Performed By: #### C BCD1 #### [place] [address] Hematocrit (Bld) [Volume fraction] 34.5 % Normal 34.1-44.9 [facility] Comment on above: Performed By: #### C BCD1 #### [facility] [address] [place], [place] [address] Hemoglobin (Bld) [Mass/Vol] 10.6 g/dL Low 11.2-15.7 [facility] Comment on above: Performed By: #### C BCD1 #### [facility] [address] [place], [place] [address] Immature Grans 0.40 % Normal [facility] Comment on above: Performed By: #### C BCD1 #### [facility] [address] [place], [place] [address] Lymphocytes (Bld) [#/Vol] 1.41 thou/cmm Normal 1.18-3.74 [facility] Comment on above: Performed By: #### C BCD1 #### [facility] [address] [place], [place] [address] Lymphocytes/100 WBC (Bld) 18.6 % Normal [facility] Comment on above: Performed By: #### C BCD1 #### [facility] [address] [place], [place] [address] MCH (RBC) [Entitic mass] 27.2 pg Normal 25.6-32.2 [facility] Comment on above: Performed By: #### C BCD1 #### [facility] [address] [place], [place] [address] MCHC (RBC) [Mass/Vol] 30.7 % Low 31.6-34.8 [facility] Comment on above: Performed By: #### C BCD1 #### [facility] [address] [place], [place] [address] MCV (RBC) [Entitic vol] 88.5 fL Normal 79.4-94.8 [facility] Comment on above: Performed By: #### C BCD1 #### [facility] [address] [place], [place] [address] Monocytes/100 WBC (Bld) 12.4 % Normal [facility] Comment on above: Performed By: #### C BCD1 #### [facility] [address] [place], [place] [address] Platelet mean volume (Bld) [Entitic vol] 11.2 fL Normal 9.4-12.3 [facility] Comment on above: Performed By: #### C BCD1 #### [facility] [address] [place], [place] [address] Platelets (Bld) [#/Vol] 201 thou/cmm Normal 182-369 [facility] Comment on above: Performed By: #### C BCD1 #### [facility] [address] [place], [place] [address] RBC (Bld) [#/Vol] 3.90 mil/cmm Low 3.93-5.22 [facility] Comment on above: Performed By: #### C BCD1 #### [facility] [address] [place], [place] [address] RDW SD 44.6 fl Normal 36.4-46.3 [facility] Comment on above: Performed By: #### C BCD1 #### [facility] [address] [place], [place] [address] Seg Neutrophil 67.3 % Normal [facility] Comment on above: Performed By: #### C BCD1 #### [facility] [address] [place], [place] [address] WBC (Bld) [#/Vol] 7.58 thou/cmm Normal 3.98-10.04 [facility] Comment on above: Performed By: #### C BCD1 #### [facility] [address] [place], [place] [address] MRA BRAIN WO/W IVCONon 10-20 MRA BRAIN WO/W IVCON * * *Final Report* * * DATE OF EXAM: Oct 21 2019 2:13PM [facility] 0273 - MRA BRAIN WO/W IVCON / PROCEDURE REASON: Stroke, follow up * * * * Physician Interpretation * * * * EXAMINATION: MRI BRAIN WO/W IVCON, MRA BRAIN WO/W IVCON, MRA CAROTID WO/W IVCON CLINICAL HISTORY: dizziness, abnormal gait. F/U cerebellar hemorrhage TECHNIQUE: Routine noncontrast MRI brain protocol including diffusion images. Intracranial and extracranial 3D [id number] MRA. 3D maximum intensity projection images were [...] focal high-grade stenosis in the proximal right [employer] P1 segment. The visualized distal vertebral and basilar arteries are otherwise patent. The distal ICAs are patent and within normal limits of caliber. The proximal ACAs, MCAs and management professor are patent and within normal limits of caliber and configuration. There is no evidence of aneurysm in the visualized vessels. IMPRESSION: Acute left galvez radiata lacunar infarct. Stable acute right cerebellar parenchymal hemorrhage. Right [employer] P1 segment focal high-grade stenosis. No other high-grade stenosis or aneurysm in the intracranial and extracranial circulations. Tie Presser: PSCB Transcribe Date/Time: Oct 21 2019 2:46P Dictated by : EDY ALBA MD This examination was interpreted and the report reviewed and electronically signed by: EDY ALBA MD on Oct 21 2019 3:01PM EST Normal [facility] MRA CAROTID WO/W IVCONon MRA CAROTID WO/W IVCON * * *Final Report * * * DATE OF EXAM: Oct 21 2019 2:13PM [facility] 0276 - MRA CAROTID WO/W IVCON / PROCEDURE REASON: Parenchymal hemorrhage proven * * * * Physician Interpretation * * * * EXAMINATION: MRI BRAIN WO/W IVCON, MRA BRAIN WO/W IVCON, MRA CAROTID WO/W IVCON CLINICAL HISTORY: dizziness, abnormal gait. F/U cerebellar hemorrhage TECHNIQUE: Routine noncontrast MRI brain protocol including diffusion images. Intracranial and extracranial 3D [id number] MRA. 3D maximum intensity projection images were [...] focal high-grade stenosis in the proximal right [employer] P1 segment. The visualized distal vertebral and basilar arteries are otherwise patent. The distal ICAs are patent and within normal limits of caliber. The proximal ACAs, MCAs and management professor are patent and within normal limits of caliber and configuration. There is no evidence of aneurysm in the visualized vessels. IMPRESSION: Acute left galvez radiata lacunar infarct. Stable acute right cerebellar parenchymal hemorrhage. Right [employer] P1 segment focal high-grade stenosis. No other high-grade stenosis or aneurysm in the intracranial and extracranial circulations. Tie Presser: PSCB Transcribe Date/Time: Oct 21 2019 2:46P Dictated by : EDY ALBA MD This examination was interpreted and the report reviewed and electronically signed by: EDY ALBA MD on Oct 21 2019 3:01PM [facility] MRI BRAIN WO/W IVCONon 10-20 MRI BRAIN WO/W IVCON * * *Final Report* * * DATE OF EXAM: Oct 21 2019 2:13PM [facility] 0295 - MRI BRAIN WO/W IVCON / PROCEDURE REASON: Stroke, follow up * * * * Physician Interpretation * * * * EXAMINATION: MRI BRAIN WO/W IVCON, MRA BRAIN WO/W IVCON, MRA CAROTID WO/W IVCON CLINICAL HISTORY: dizziness, abnormal gait. F/U cerebellar hemorrhage TECHNIQUE: Routine noncontrast MRI brain protocol including diffusion images. Intracranial and extracranial 3D hwfx-[id number] MRA. 3D maximum intensity projection images were [...] focal high-grade stenosis in the proximal right [employer] P1 segment. The visualized distal vertebral and basilar arteries are otherwise patent. The distal ICAs are patent and within normal limits of caliber. The proximal ACAs, MCAs and management professor are patent and within normal limits of caliber and configuration. There is no evidence of aneurysm in the visualized vessels. IMPRESSION: Acute left galvez radiata lacunar infarct. Stable acute right cerebellar parenchymal hemorrhage. Right [employer] P1 segment focal high-grade stenosis. No other high-grade stenosis or aneurysm in the intracranial and extracranial circulations. Tie Presser: LYLA Transcribe Date/Time: Oct 21 2019 2:46P Dictated by : EDY ALBA MD This examination was interpreted and the report reviewed and electronically signed by: EDY ALBA MD on Oct 21 2019 3:01PM EST Normal [facility] Magnesium Bloodon 10-21-2019 Magnesium [Mass/Vol] 2.0 mg/dL Normal 1.6-2.6 [facility] Comment on above: Performed By: #### C BCD1 #### [facility] [address] [place] [address] Phosphorus Bloodon 0 Phosphate [Mass/Vol] 6.7 mg/dL High 2.5-4.9 [facility] Comment on above: Performed By: #### C BCD1 #### [facility] [address] [place] [address] ABO/Rh Confirmationon 2019 ABO group Nom (Bld) A Normal [facility] Comment on above: Performed By: #### C BCD1 #### [place] [address] RH Type Positive Normal [facility] Comment on above: Performed By: #### C BCD1 #### [facility] [address] [place] [address] Activated PTTon 10-20-2019 aPTT Coag (Bld) [Time] 22.8 s Low 23.0-32.4 [facility] Comment on above: Result Comment: Unfr actionated [...] laboratory APTT reagent in use throughout the [facility]. Performed By: #### A PTT #### [facility] [address] [place] [address] [address] BRAIN WO IVCONon 10-20-[address] BRAIN WO IVCON * * *Final Report* * * DATE OF EXAM: Oct 20 2019 9:42PM [facility] 0504 - CT BRAIN WO IVCON / [...] loss and chronic small vessel ischemic change. Tie Presser: LYLA Transcribe Date/Time: Oct 20 2019 10:05P Dictated by : TOMMY PATTERSON MD This examination was interpreted and the report reviewed and electronically signed by: TOMMY PATTERSON MD on Oct 20 2019 10:10PM EST Normal [facility] CT-Brain/Head without Contra st IMPORTon 10-20-2019 CT-Brain/Head without Contrast IMPORT Images were obtained outside of [facility] Normal [facility] Comprehensive Panelon 2019 ALP [Catalytic activity/Vol] 72 U/L Normal 45-117 [facility] Comment on above: Performed By: #### P 14 #### [place] [address] Bilirubin [Mass/Vol] 0.4 mg/dL Normal 0.2-1.0 [facility] Comment on above: Result Comment: Use of this assay is not recommended for patients undergoing treatment with eltrombopag due to the potential for falsely elevated results. Performed By: #### P 14 #### [facility] [address] [place], [place] [address] Protein [Mass/Vol] 6.7 g/dL Normal 6.4-8.2 [facility] Comment on above: Performed By: #### P 14 #### [facility] [address] [place] [address] Creatinine [Mass/Vol] 0.48 mg/dL Low 0.51-0.95 [facility] Comment on above: Result Comment: Use of this assay is not recommended for patients undergoing treatment with phenindione, due to the potential for falsely depressed results. Performed By: #### P 14 #### [facility] [address] [place] [address] ALT [Catalytic activity/Vol] 23 U/L Normal 12-78 [facility] Comment on above: Performed By: #### P 14 #### [facility] [address] [place] [address] AST [Catalytic activity/Vol] 21 U/L Normal 15-37 [facility] Comment on above: Performed By: #### P 14 #### [facility] [address] [place], [place] [address] Albumin [Mass/Vol] 3.4 g/dL Normal 3.4-5.0 [facility] Comment on above: Performed By: #### P 14 #### [facility] [address] [place], [place] [address] Anion gap [Moles/Vol] 7 mmol/L Low 8-16 [facility] Comment on above: Performed By: #### P 14 #### [facility] [address] [place] [address] Calcium [Mass/Vol] 8.4 mg/dL Low 8.5-10.1 [facility] Comment on above: Performed By: #### P 14 #### [facility] [address] [place] [address] CO2 [Moles/Vol] 25 mmol/L Normal 21-32 [facility] Comment on above: Performed By: #### P 14 #### [facility] [address] [place] [address] Glucose [Mass/Vol] 99 mg/dL Normal 70-99 [facility] Comment on above: Performed By: #### P 14 #### [facility] [address] [place] [address] Urea nitrogen [Mass/Vol] 15 mg/dL Normal 7-18 [facility] Comment on above: Performed By: #### P 14 #### [facility] [address] [place] [address] Chloride [Moles/Vol] 109 mmol/L High 98-107 [facility] Comment on above: Performed By: #### P 14 #### [facility] [address] [place] [address] Potassium [Moles/Vol] 3.5 mmol/L Normal 3.5-5.1 [facility] Comment on above: Performed By: #### P 14 #### [facility] [address] [place] [address] Sodium [Moles/Vol] 137 mmol/L Normal 136-145 [facility] Comment on above: Performed By: #### P 14 #### [facility] [address] [place] [address] Hemogram/Diffon 10-20-2019 Abs Immature Grans 0.06 thou/cmm High 0.00-0.05 [facility] Comment on above: Performed By: #### C BCD1 #### [facility] [address] [place] [address] Abs Neut (ANC) 9.32 thou/cmm High 1.56-6.13 [facility] Comment on above: Performed By: #### C BCD1 #### [facility] [address] [place] [address] Abs. Baso 0.03 thou/cmm Normal 0.01-0.08 [facility] Comment on above: Performed By: #### C BCD1 #### [place] [address] Abs. [place]arrow 0.76 thou/cmm High 0.27-0.70 [facility] Comment on above: Performed By: #### C BCD1 #### [facility] [address] [place] [address] Basophils/100 WBC (Bld) 0.3 % Normal [facility] Comment on above: Performed By: #### C BCD1 #### [facility] [address] [place] [address] Eosinophils (Bld) [#/Vol] 0.01 thou/cmm Normal 0.00-0.31 [facility] Comment on above: Performed By: #### C BCD1 #### [facility] [address] [place] [address] Eosinophils/100 WBC (Bld) 0.1 % Normal [facility] Comment on above: Performed By: #### C BCD1 #### [facility] [address] [place] [address] Erythrocyte distribution width (RBC) [Ratio] 13.5 % Normal 11.7-14.4 [facility] Comment on above: Performed By: #### C BCD1 #### [facility] [address] [place] [address] Hematocrit (Bld) [Volume fraction] 36.5 % Normal 34.1-44.9 [facility] Comment on above: Performed By: #### C BCD1 #### [facility] [address] [place] [address] Hemoglobin (Bld) [Mass/Vol] 11.5 g/dL Normal 11.2-15.7 [facility] Comment on above: Performed By: #### C BCD1 #### [facility] [address] [place] [address] Immature Grans 0.50 % Normal [facility] Comment on above: Performed By: #### C BCD1 #### [facility] [address] [place] [address] Lymphocytes (Bld) [#/Vol] 0.84 thou/cmm Low 1.18-3.74 [facility] Comment on above: Performed By: #### C BCD1 #### [facility] [address] [place], [place] [address] Lymphocytes/100 WBC (Bld) 7.6 % Normal [facility] Comment on above: Performed By: #### C BCD1 #### [facility] [address] [place], [place] [address] MCH (RBC) [Entitic mass] 27.6 pg Normal 25.6-32.2 [facility] Comment on above: Performed By: #### C BCD1 #### [facility] [address] [place], [place] [address] MCHC (RBC) [Mass/Vol] 31.5 % Low 31.6-34.8 [facility] Comment on above: Performed By: #### C BCD1 #### [facility] [address] [place], [place] [address] MCV (RBC) [Entitic vol] 87.7 fL Normal 79.4-94.8 [facility] Comment on above: Performed By: #### C BCD1 #### [facility] [address] [place], [place] [address] Monocytes/100 WBC (Bld) 6.9 % Normal [facility] Comment on above: Performed By: #### C BCD1 #### [facility] [address] [place], [place] [address] Platelet mean volume (Bld) [Entitic vol] 11.2 fL Normal 9.4-12.3 [facility] Comment on above: Performed By: #### C BCD1 #### [facility] [address] [place], [place] [address] Platelets (Bld) [#/Vol] 210 thou/cmm Normal 182-369 [facility] Comment on above: Performed By: #### C BCD1 #### [facility] [address] [place], [place] [address] RBC (Bld) [#/Vol] 4.16 mil/cmm Normal 3.93-5.22 [facility] Comment on above: Performed By: #### C BCD1 #### [facility] [address] [place], [place] [address] RDW SD 43.6 fl Normal 36.4-46.3 [facility] Comment on above: Performed By: #### C BCD1 #### [facility] [address] [place], [place] [address] Seg Neutrophil 84.6 % Normal [facility] Comment on above: Performed By: #### C BCD1 #### [facility] [address] [place], [place] [address] WBC (Bld) [#/Vol] 11.02 thou/cmm High 3.98-10.04 [facility] Comment on above: Performed By: #### C BCD1 #### [facility] [address] [place] [address] Ionized Calciumon 10-20-2019 Ionized Ca,PH7.4 4.58 mg/dL Low 4.61-5.17 [facility] Comment on above: Performed By: #### I ONCA #### [facility] [address] [place] [address] pH (Bld) 7.405 [pH] Normal 7.320-7.430 [facility] Comment on above: Performed By: #### I ONCA #### [facility] [address] [place] [address] Ionized Calcium 4.57 mg/dL Low 4.61-5.17 [facility] Comment on above: Performed By: #### I ONCA #### [facility] [address] [place] [address] MRSA Screenon 10-20-2019 MRSA DNA ADAM+probe Ql (Unsp spec) Test performed at [facility] No MRSA detected. Normal [facility] Comment on above: Performed By: #### I ONCA #### [facility] [address] [place], [place] [address] Magnesium Bloodon 10-20-2019 Magnesium [Mass/Vol] 2.1 mg/dL Normal 1.6-2.6 [facility] Comment on above: Performed By: #### M AG #### [facility] [address] [place] [address] Phosphorus Bloodon 0 Phosphate [Mass/Vol] 2.3 mg/dL Low 2.5-4.9 [facility] Comment on above: Performed By: #### P HOS #### [place] [address] Protimeon 10-20-2019 INR Coag (PPP) [Relative time] 1.00 {INR} Normal 0.90-1.30 [facility] Comment on above: Result Comment: Sowmya min K Antagonist (VKA) Therapeutic Range: INR 2 to 3 (Target INR of 2.5) Note: For patients treated with VKA drugs, such as warfarin, the [employer] 2012 Guideline recommends [...] 2.5 to 3.5 target INR of 3). Gavinyatt GH, et al. Chest 2012; 141:7S-47S Alejandro RA, et al. JACC 2017; 70: 252-289 Performed By: #### P T #### [place] [address] PT Coag (PPP) [Time] 10.8 s Normal 9.7-13.0 [facility] Comment on above: Performed By: #### P T #### [place] [address] Type and Screenon 10-20-2019 Comment See Below Normal [facility] Comment on above: Result Comment: Scre en &/or Xmatch expires in 3 days at 12 midnight. Redraw patient at that time. Performed By: #### T &S #### [place] [address] ABO group Nom (Bld) A Normal [facility] Comment on above: Performed By: #### T &S #### [facility] [address] [place], [place] [address] RH Type Positive Normal [facility] [facility] Comment on above: Performed By: #### T &S #### [facility] [address] [place], [place] [address] XR CHEST 1V FRONTALon 2019 XR CHEST [...] Other: None IMPRESSION: No acute radiographic abnormality. Tie Presser: PSCB Transcribe Date/Time: Oct 20 2019 8:04P Dictated by : DANDRE PRETTY MD This examination was interpreted and the report reviewed and electronically signed by: DANDRE PRETTY MD on Oct 20 2019 8:05PM EST [facility] Culture, urine Bacteria identified Cx Nom (U) Presumptive E. coli [facility] Work Phone: Vital Signs Date Time Vital Sign Value Performing Clinician Faci litobey 05-19-2025 12:39-0400 Body height 147.[address] Fercho Whitehead DO Work Phone: [facility] 09-19-2022 10:37-0500 Body height 147.[address] Fercho Whitehead Work Phone: [facility] Encounters Encounter Date Encounter Type Care Provider Facility Start: 06-03-2025 ambulatory Arnulfo ASHFORD Fa cility:[facility] Start: 05-13-2025 ambulatory Fercho Wright y:[facility] Start: 05-13-2025 Registered Referred Arnulfo English MD -[facility] Start: 05-11-2025 End: 05-11-[address] Fercho Whitehead DO Work Phone: -[facility] Start: 05-11-2025 End: 05-11-2025 Patient encounter procedure Celia Reed CUPOLA TENDER HELPER-C -[facility] Work Phone: Start: 04-01-2025 ambulatory Fercho Whitehead Facilit y:[facility] Start: 04-01-2025 [facility] Start: 03-04-2025 ambulatory Fercho Whitehead Facilit y:[facility] Start: 03-04-2025 [facility] Start: 02-18-2025 ambulatory Fercho Whitehead Facilit y:[facility] Start: 02-18-2025 [facility] Start: 01-07-2025 ambulatory Fercho Whitehead Facilit y:[facility] Start: 12-03-2024 End: 12-03-[address] Fercho Whitehead DO Work Phone: [facility] Work Phone: Start: 12-03-2024 End: 12-03-2024 [facility] Start: 12-03-2024 [facility] Start: 12-03-2024 End: 12-03-2024 ambulatory Fercho Whitehead Facility:[facility] Start: 11-26-2024 End: 11-26-[address] Fercho Whitehead DO Work Phone: [facility] Work Phone: Start: 11-26-2024 End: 11-26-2024 [facility] Start: 11-26-2024 End: 11-26-2024 ambulatory Fercho Whitehead Facility:[facility] Start: 11-05-2024 End: 11-05-[address] Fercho Whitehead DO Work Phone: [facility] Work Phone: Start: 11-05-2024 End: 11-05-2024 [facility] Start: 11-05-2024 [facility] Start: 11-04-2024 End: 11-05-2024 ambulatory Efewmaxineelie Duponte OLS Facility:[facility] Start: 11-04-2024 End: 11-04-[address] Arnulfo English MD -[facility] Work Phone: Start: 10-15-2024 End: 10-15-[address] Fercho Whitehead DO Work Phone: [facility] Work Phone: Start: 10-15-2024 End: 10-15-2024 [facility] Start: 10-15-2024 End: 10-15-2024 ambulatory Efsaranyamaxineelie Dupontelizabeth OLS Facility:[facility] Start: 09-03-2024 End: 09-03-2024 [facility] Start: 09-03-2024 End: 09-03-2024 ambulatory Efsaranyaskye English OLS Facility:[facility] Start: 11-26-2023 End: 11-26-[address] Fercho Whitehead Work Phone: [facility] Work Phone: Start: 11-26-2023 End: 11-26-[address] Fercho Whitehead Work Phone: [facility] Start: 11-26-[address] Fercho Whitehead Work Phone: [facility] Start: 11-24-2023 End: 11-24-[address] Fercho Whitehead Work Phone: [facility] Work Phone: Start: 11-24-2023 End: 11-24-[address] Fercho Whitehead Work Phone: [facility] Start: 11-06-2023 End: 11-06-[address] Fercho Whitehead Work Phone: [facility] Work Phone: Start: 10-10-2023 End: 10-10-2023 ambulatory [facility] Work Phone: Start: 10-10-2023 End: 10-10-2023 Departed Referred [facility] Start: 10-01-2023 End: 10-01-2023 ambulatory [facility] Work Phone: Start: 10-01-2023 End: 10-01-2023 Departed Referred [facility] Start: 10-01-2023 Registered Referred [facility] Start: 09-05-2023 End: 09-05-2023 ambulatory [facility] Work Phone: Start: 09-05-2023 End: 09-05-2023 Departed Referred [facility] Start: 07-04-2023 End: 07-04-2023 ambulatory [facility] Work Phone: Start: 07-04-2023 End: 07-04-2023 Departed Referred [facility] Start: 05-23-2023 End: 05-23-2023 ambulatory [facility] Work Phone: Start: 05-23-2023 End: 05-23-2023 Departed Referred [facility] Start: 02-21-2023 End: 02-21-2023 Departed Referred [facility] Start: 01-09-2023 End: 01-09-2023 ambulatory [facility] Work Phone: Start: 01-09-2023 End: 01-09-2023 Departed Referred [facility] Start: 12-12-2022 End: 12-12-[address] Fercho Whitehead Work Phone: [facility] Work Phone: Start: 12-12-2022 End: 12-12-[address] Fercho Whitehead Work Phone: [facility] Start: 11-14-2022 End: 11-14-[address] Fercho Whitehead Work Phone: [facility] Work Phone: Start: 11-14-2022 End: 11-14-[address] Fercho Whitehead Work Phone: [facility] Start: 10-17-[address] Fercho Whitehead Work Phone: [facility] Start: 09-12-2022 End: 09-12-[address] Fercho Whitehead Work Phone: [facility] Start: 09-12-2022 End: 09-12-[address] Fercho Whitehead Work Phone: [facility] Work Phone: Start: 09-12-2022 End: 09-12-[address] Fercho Whitehead Work Phone: [facility] Start: 08-15-[address] Fercho Whitehead Work Phone: [facility] Start: 07-14-2022 End: 07-14-[address] Fercho Whitehead Work Phone: [facility] Start: 07-11-2022 End: 07-11-[address] Fercho Whitehead Work Phone: [facility] Work Phone: Start: 07-11-2022 End: 07-11-[address] [facility] Start: 06-13-2022 End: 06-13-2022 ambulatory [facility] Work Phone: Start: 06-13-2022 End: 06-13-2022 Departed Referred [facility] Start: 05-16-2022 End: 05-16-2022 [facility] Start: 05-15-2022 End: 05-15-2022 ambulatory KATHY BROWN Facility:[facility] Start: 04-25-2022 End: 04-25-2022 ambulatory [facility] Work Phone: Start: 04-25-2022 End: 04-25-2022 Departed Referred [facility] Start: 04-25-2022 Registered Referred [facility] Start: 04-11-2022 End: 04-11-2022 ambulatory [facility] Work Phone: Start: 04-11-2022 End: 04-11-2022 [facility] Start: 03-14-2022 End: 03-14-2022 [facility] Start: 03-08-2022 End: 03-08-2022 [facility] Start: 02-14-2022 End: 02-14-2022 [facility] Start: 01-10-2022 End: 01-10-2022 Departed Referred [facility] Start: 12-13-2021 End: 12-13-2021 Departed Referred [facility] Start: 12-13-2021 Registered Referred [facility] Start: 11-08-2021 End: 11-08-2021 Departed Referred [facility] Start: 11-08-2021 Registered Referred [facility] Start: 10-11-2021 End: 10-11-2021 Departed Referred [facility] Start: 10-11-2021 Registered Referred [facility] Start: 09-13-2021 End: 09-13-2021 Departed Referred [facility] Start: 08-16-2021 End: 08-16-2021 Departed Referred [facility] Procedures Date Procedure Procedure Detail Performing Clinician Start: 09-03-2024 Measurement of renal function Dr. Fercho Whitehead DO Work Phone: Comment on above: GFR Calc Start: 11-24-[address] Alexandr Whitehead Work Phone: Start: 10-20-2019 Antibody screen Comment on above: Performed By: #### T &S #### [place] [address] Urine culture Immunizations Immunization Date Immunization Notes Care Provider Fa cility 11-18-2020 Covid (Moderna) [facility] 10-18-2020 Covid (Moderna) [facility] 06-18-2019 Influenza virus vaccine [facility] Payers Date Payer Category Payer Self-pay [id number] 2015 Private Health Insurance [id number] Medicare [id number] Unknown [id number] 2.16.8 [id number] Unknown [id number] 2.16.8 [id number] Unknown [id number] 2.16.8 [id number] Unknown [id number] 2.16.8 [id number] Unknown [id number] 2.16.8 [id number] Unknown [id number] 2.16.8 [id number] Unknown [id number] 2.16.8 [id number] Unknown [id number] 2.16.8 [id number] Unknown [id number] 2.16.8 [id number] Unknown [id number] 2.16.8 [id number] Unknown [id number] 2.16.8 [id number] Unknown [id number] 2.16.8 [id number] Unknown [id number] 2.16.8 [id number] Social History Date Type Detail Facility Start: 03-30-2021 End: 09-19-2022 Tobacco smoking status NHIS Unknown if ever smoked [facility] Start: 10-24-2019 None [facility] Start: 10-24-2019 Alone;- [facility] Start: 11-01-2019 Non-smoker [facility] Start: 1935 Sex Assigned At Female [facility] Start: 09-19-2022 End: 05-19-2025 Tobacco smoking status NHIS Never smoked tobacco (finding) [facility] Start: 11-20-2024 End: 11-21-2024 Sex Female (finding) [facility] Sex Female [facility] Medical Equipment Procedure Code Equipment Code Equipment Origin al Text Equipment Identifier Dates ORIF, hip, using Gamma nail ([id number]) Orthopaedic bone screw, non-bioabsorbable, sterile [id number] FDA Start: 03-07-2021 ORIF, hip, using Gamma nail ([id number]) Femur nail, sterile [id number] FDA Start: 03-07-2021 ORIF, hip, using Gamma nail ([id number]) Orthopaedic bone screw, non-bioabsorbable, sterile [id number] FDA Start: 03-07-2021 Progress note 05-15-2022 Note Date & Type Note Facility 05-15-2022 Note HNO ID: [id number] Author: Kathy Brown APRN.CATH LAB Service: ? Author Type: Nurse Practitioner Type: Progress Notes Filed: 05/17/2022 9:25 AM Note Text: [facility] Initial Visit CEREBROVASCULAR HISTORY Junie Johnson is a 86 year old female who presents for a neurological evaluation. Previous patient of Dr. Hanks in [place] Previous visit with Dr. 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 May have been a transient hypertensive spike at the time. Recovered well with no other issues. Continue with aspirin monotherapy, which will likely be penitentiary. Continue to keep close tab on BP [...] Procedure Laterality Date COLONOSCOP W/ OR W/O [facility] SPEC 06/24/2001 sigmoidoscopy PAST SURGICAL HISTORY OF [...] vibration. Coordination: Rapid alternating movements symmetric bilaterally. [id number], [id number] without dysmetria bilaterally. Reflexes: 2+/4 reflexes symmetric bilaterally. Plantar response is flexor bilaterally. Gait: Narrow-based, normal spaced and stable withou (more content not included)... [facility] Progress note 06-28-2021 Note Date & Type Note Facility 06-28-2021 Note HNO ID: [id number] Author: Daiana Brown APRN.CATH LAB Service: ? Author Type: Nurse Practitioner Type: Progress Notes Filed: 06/28/2021 1:39 PM Note Text: Neurology Follow Up Note Date: June 28, 2021 Patient Name: Junie Johnson HPI: This is Ms. Junie Johnson a 85 year old female who presents to [facility] for follow up of CVA. [...] for women, Target triglycerides <150 Daiana Brown APRN.CATH LAB [facility], Department of Neurology [facility] Evaluation note Note Date & Type Note Facility Evaluation note No assessment information availa ble [facility] Work Phone: Reason for referral (narrative) Note Date & Type Note Facility Reason for referral (narrative) No reason for referral information available [facility] Work Phone: Summary Purpose Family History No Family History Records Found Relationship Condition Age at Onset Recorded Date/T mara Not Specified Arthritis Unknown Advance Directives No Advanced Directives Records Found Advance Directive Response Recorded Date/ Time Living Will Yes March 08, 2021 4:33pm Power of Data Security Coordinator Yes March 08 4:33pm Advance Directive Response Recorded Date/ Time Living Will Yes March 08, 2021 3:33pm Power of Data Security Coordinator Yes March 08 3:33pm Advance Directive Response Recorded Date/ Time Living Will Yes September 19 10:37am Power of Data Security Coordinator Yes September 19, 2022 10:37am Advance Directive Response Recorded Date/ Time Living Will Yes September 19 11:37am Power of Data Security Coordinator Yes September 19, 2022 11:37am Chief Complaint and Reason for Visit Chief Complaint ASSISTED LABWORK ASSISTED LABWORK ASSISTED LAB WORK ASSISTED LABWORK Chief Complaint ASSISTED LABWORK ASSISTED LAB WORK ASSISTED LABWORK ASSISTED LABWORK Chief Complaint ASSISTED LAB WOR K ASSISTED LABWORK ASSISTED LABWORK Chief Complaint ASSISTED LABWORK ASSISTED LABWORK Chief Complaint ASSISTED LABWORK ASSISTED LAB WORK ASSISTED LAB WORK Chief Complaint ASSISTED LAB WOR K ASSISTED LAB WORK ASSISTED LABWORK ASSISTED LAB WORK ASSISTED LABWORK Chief Complaint ASSISTED LAB WOR K ASSISTED LAB WORK ASSISTED LABWORK ASSISTED LAB WORK ASSISTED LABWORK ASSISTED LAB WORK Chief Complaint ASSISTED LABWORK ASSISTED LAB WORK ASSISTED LABWORK ASSISTED LAB WORK ASSISTED LABWORK ASSISTED LAB WORK Chief Complaint ASSISTED LABWORK ASSISTED LAB WORK ASSISTED LAB WORK ACUTE CARE VISIT Chief Complaint ASSISTED LAB WOR K ASSISTED LAB WORK ACUTE CARE VISIT ASSISTED LABWORK NEW CONCERN/PROBLEM Chief Complaint ASSISTED LABWORK NEW CONCERN/PROBLEM ASSISTED LAB WORK ASSISTED LABWORK Chief Complaint ASSISTED LABWORK NEW CONCERN/PROBLEM ASSISTED LAB WORK ASSISTED LABWORK ASSISTED LAB WORK Chief Complaint ASSISTED LAB WOR K ASSISTED LABWORK ASSISTED LAB WORK ASSISTED LABWORK Chief Complaint ASSISTED LAB WOR K ASSISTED LAB WORK Chief Complaint ASSISTED LAB WOR K ASSISTED LAB WORK ASSISTED LAB WORK Chief Complaint ASSISTED LAB WOR K ASSISTED LAB WORK LABWORK ASSISTED LAB WORK Chief Complaint ASSISTED LAB WOR K LABWORK ASSISTED LAB WORK ANNUAL EXAM MD LABWORK Chief Complaint ASSISTED LAB WOR K LABWORK ASSISTED LAB WORK ANNUAL EXAM MD LABWORK LABWORK Chief Complaint Admit Date ASSISTED LAB WORK September 03, 2024 5:00am ASSISTED LAB WORK October 15 5:00am ANNUAL EXAM November 04, 2024 12: 32pm LABWORK November 05, 2024 5:0 0am Chief Complaint Admit Date ASSISTED LAB WORK September 03, 2024 5:00am ASSISTED LAB WORK October 15 5:00am ANNUAL EXAM November 04, 2024 12: 32pm LABWORK November 05, 2024 5:0 0am ASSISTED LAB WORK November 26, 2024 5: 00am Chief Complaint Admit Date ASSISTED LAB WORK September 03, 2024 5:00am ASSISTED LAB WORK October 15 5:00am ANNUAL EXAM November 04, 2024 12: 32pm LABWORK November 05, 2024 5:0 0am ASSISTED LAB WORK November 26, 2024 5: 00am ASSISTED LAB WORK December 03, 2024 5 :00am Chief Complaint Admit Date LABWORK February 18, 2025 5:00a m ASSISTED LAB WORK March 04, 2025 5: 10am LABWORK April 01, 2025 5: 00am NEW CONCERN May 11, 2025 1:22pm Additional Source Comments INFORMATION SOURCE (unrecogn ized section and content) DATE CREATED AUTHOR 05/18/2020 [facility] DATE CREATED AUTHOR AUTHOR'S ORGANIZ ATION 06/29/2021 [facility] DATE CREATED AUTHOR AUTHOR'S ORGANIZ ATION 05/22/2022 [facility] DATE CREATED AUTHOR AUTHOR'S ORGANIZ ATION 06/03/2025 [facility] Goals (unrecognized section and content) [...] Role Status Dates Dr. Fercho Whitehead DO Family Provider Active Dr. Fercho Whitehead DO Primary Care Provider Active Team Status: Inactive Member Role Status Dates Dr. Fercho Whitehead DO Primary Care Provider Active Celia Reed CUPOLA TENDER HELPER, CUPOLA TENDER HELPER-C Attending Provider Active Team Status: Inactive Member [...] December 03, 2024 End: December 03, 2024 Team Status: Active Member Role/Relationship Status Dates Dr. Fercho Whitehead DO Primary care physician Active Team Status: Active Member Role/Relationship Status Dates Dr. Fercho Whitehead DO Primary care physician Active Start: February 18, 2025 Arnulfo ASHFORD MD Attending physician Active Start: February 18, 2025 Team Status: Active Member Role/Relationship Status Dates Dr. Fercho Whitehead DO Primary care physician Active Start: March 04, 2025 Arnulfo ASHFORD MD Attending physician Active Start: March 04, 2025 Team Status: Active Member Role/Relationship Status Dates Dr. Fercho Whitehead DO Primary care physician Active Start: April 01, 2025 Arnulfo ASHFORD MD Attending physician Active Start: April 01, 2025 Team Status: Inactive Member Role/Relationship Status Dates Dr. Fercho Whitehead DO Primary care physician Active Start: May 11, 2025 End: May 11, 2025 Celia Reed NP, CUPOLA TENDER HELPER-C Attending physician Active Start: May 11, 2025 End: May 11, 2025 Team Status: Active Member Role/Relationship Status Dates Dr. Fercho Whitehead DO Primary care physician Active Start: May 13, 2025 Arnulfo ASHFORD MD Attending physician Active Start: May 13, 2025 FOR RECORDS PERTAINING TO PATIENTS WHO ARE [...] BE BASED ON THE PRIMARY CLINICAL RECORDS. [facility] [employer] provides no warranty or guarantee of the accuracy or completeness of information in this document.
== END ==
LOC: OLS.WHLTSB 05:00
PROVIDERS: PCP Student in an Organized Health Care Education/Training Program; Visit Provider Internal Medicine
DX: E03.9 Hypothyroidism, unspecified (principal)
CPT/HCPCS: 36415; 84439; 84443

== ENCOUNTER → 2025-08-05 05:00 | Outpatient (REF) | payer MEDICARE, OTHER, SELFPAY ==
--- OUTSIDE RECORDS SUMMARY | 2025-08-05 03:56 | XMS RPT_ITS | CCD ---
Author Organization [facility] Care Team Providers Care [employer] Name Role Phone KATHY BROWN Attending Unavailable FERCHO WHITEHEAD Primary Care Unavailable DAIANA BROWN Referring Unavailable Dr. Fercho Whitehead Primary Care Provider Brianna GARNISHER, GARNISHER-C Celia Attending Provider Dr. Fercho Morejon Primary Care Provider Brianna CORBIN, GARNISHER-C Celia Attending Provider Dr. Fercho Morejon Primary Care Provider Dr. Arnulfo English Attending Provider [phone] Fercho Whitehead DO Primary Care Provider [phone] Arnulfo English MD Attending Provider Unavailguerrero English MD, Dr. Arredondo Attending Provider Dr. Fercho Whitehead DO Primary Care Physician Arnulfo English MD Attending Physician Unavail able Brianna SPARKSCCelia Attending Physician Arnulfo Buchanan Attending Fercho Monzon Primary Care Unavailable Fercho Whitehead Primary Care Unavailable Arnulfo Buchanan Attending UnavailFercho Shrestha Primary Care Unavailable Arnulfo Buchanan Attending UnavailFercho Shrestha Primary Care Unavailable Arnulfo Buchanan Attending UnavailFercho Shrestha Primary Care Unavailable Arnulfo Buchanan Attending UnavailArnulfo Kothari Attending UnavailFercho Shrestha Primary Care Unavailable Celia Reed NP Attending Unavailable Fercho Whitehead Primary Care Unavailable Arnulfo English Attending Unavailable Fercho Whitehead Primary Care Unavailable Arnulfo Buchanan Attending Unavailabl el[facility]available [facility] Unavailable Arnulfo Buchanan Attending Unavailabl e [facility] Unavailable Arnulfo Buchanan Attending Unavailabl elizabeth [facility] Unavailable Arnulfo Buchanan Attending Unavailabl e [facility] Unavailable Tameka ASHFORD Arnulfo Attending Unavailabl e [facility] Unavailable Arnulfo Buchanan Attending Unavailabl e Allergies Allergy Classification Reported Allergen(s) Allergy Type Date of Onset Reaction(s) Facility (20 sources) Naproxen; Translations: [NAPROXEN] Drug Allergy 06-13-2005 Other [facility] Repository (1 source) levothyroxine; Translations: [LEVOTHYROXINE] Drug Allergy 09-28-2014 [facility] Repository (1 source) Naproxen Drug Allergy 04-22-2024 [facility] Repository Medications Current Medications Medication [...] docusate sodium 50 mg / [facility] group home 8.6 mg oral tablet (20 sources) Start: 03-24-2021 levothyroxine sodium 0.1 mg oral tablet (20 sources) l-Thyroxine Start: 04-22-2024 Start: 03-11-2021 End: 04-22-2024 take 1 tablet by mouth once daily Levothyroxine (Synthroid) 100 mcg tablet Discontinued 100 ug PO DAILY March 11, 2021 12:00am April 22, 2024 1:18pm thyroid pt unable to take generic Wlnlngwc-Jmz-Rh-Lycopen-Lute in (Centrum Silver) 1 EACH tablet (20 sources) Start: 10-16-2015 Iqxmbefl-Bfh-Ur-Lycopen-Lute in (Centrum Silver) 1 EACH tablet Active 1 TABLET PO DAILY October 16, 2015 1:47pm Start: 10-16-2015 take 1 tablet by mouth once da mariann Start: 10-16-2015 take 1 tablet by mouth once da mariann Hotyhdsg-Odx-Jv-Lycopen-Lutein (Centrum Silver) 1 EACH tablet Active 1 {tbl} PO DAILY October 16, 2015 1:00am Start: 10-16-2015 Cwiikpfz-Cod-X o-Oyltgom-Ypgsgy (Centrum Silver) 1 EACH tablet Active 1 TABLET PO DAILY October 16, 2015 12:00am Start: 10-16-2015 Onzawvyg-Xgs-G u-Ozlpzyx-Wmjhxl (Centrum Silver) 1 EACH tablet Active 1 [...] March 24, 2021 7:27pm polyethylene glycol 3350 02527 mg powder for oral solution (20 sources) [...] [Hemangioma of intra-abdominal structures] 10-24-2019 Episodic Other gastrointestinal disorders (5 sources) Occult [...] [Disorder of thyroid, unspecified] 03-30-2021 Episodic Unclassified (2 sources) Personal history of COVID-19; Translations: [Personal history of COVID-19] Onset: 5 Past or Other Problems Problem Classification Problem Date Documented Da te Episodic/Chronic Deficiency and other anemia (1 source) Iron deficiency anemia, unspecified; Translations: [Iron deficiency anemia, unspecified] Onset: 11-21-2024 Episodic Other connective tissue disease (2 sources) Pain in right toe(s); Translations: [Pain in right toe(s)] Onset: 09-19-2024 Episodic Other connective tissue disease (1 source) Pain in left toe(s); Translations: [Pain in left toe(s)] Onset: 03-18-2025 Episodic Results Test Name Value Interpretation Reference Range Facility T4 freeOrdered By: Arnulfo English on 05-13-2025 Free T4 [Mass/Vol] 1.30 ng/dL 0.76-1.46 [facility] TSH DL <= 0.005 mIU/L QnOrde red By: Arnulfo Duponte on 05-13-2025 TSH Qn 0.731 uIU/mL 0.300-4.200 [facility] T4 freeOrdered By: Arnulfo English on 04-01-2025 Free T4 [Mass/Vol] 1.50 ng/dL High 0.76-1.46 [facility] TSH DL <= 0.005 mIU/L QnOrde red By: Arnulfo English on 04-01-2025 TSH Qn 0.352 uIU/mL 0.300-4.200 [facility] Absolute lymphocyte countOrd ered By: Arnulfo English on 03-04-2025 Lymphocytes Auto (Unsp spec) [#/Vol] 2.22 10*3/uL 0.83-4.51 [facility] Absolute neutrophil countOrd ered By: Arnulfo English on 03-04-2025 Neutrophils (Bld) [#/Vol] 3.0 10*3/uL 2.0-7.7 [facility] Anion gap in Serum or Plasma Ordered By: Arnulfo English on 03-04-2025 Anion gap [Moles/Vol] 9 mmol/L 5-15 [facility] Automated lymphocyte count a s percentage of total leukocytesOrdered By: Arnulfo English on 03-04-2025 Lymphocytes/100 WBC Auto (Unsp spec) 36.3 % 19-41 [facility] BUN/creatinine ratioOrdered By: Arnulfo English on 03-04-2025 Urea nitrogen/Creatinine [Mass ratio] 28.3 mg/mg High 10-20 [facility] Basophil percentageOrdered B y: Arnulfo English on 03-04-2025 Basophils/100 WBC (Bld) 0.8 % 0-1 [facility] Carbon dioxide, total [Moles /volume] in Central venous bloodOrdered By: Arnulfo English on 03-04-2025 CO2 [Moles/Vol] 27.7 mmol/L 21.0-32.0 [facility] Chloride assayOrdered By: Teddy brian Chassiena on 03-04-2025 Chloride [Moles/Vol] 103 mmol/L 98-108 [facility] Eosinophil percentageOrdered By: saranyaskye Dohertyantonelizabeth 03-04-2025 Eosinophils/100 WBC (Bld) 2.0 % 0-5 [facility] Erythrocyte distribution wid th ratioOrdered By: Arnulfo Chasantonelizabeth on 03-04-2025 Erythrocyte distribution width (RBC) [Ratio] 15.0 % High 11.6-14.6 [facility] Erythrocyte distribution wid th standard deviationOrdered By: saranyaparkselie Chassiena 03-04-2025 Erythrocyte distribution width (RBC) [Ratio] 48.3 fl High 35.1-43.9 [facility] Glomerular filtration rate ( GFR) estimation/1.73 sq m using serum, plasma, or whole bOrdered By: Teddybrian English 03-04-2025 GFR/1.73 sq M.predicted among non-blacks MDRD (S/P/Bld) [Vol rate/Area] 84 mL/min/{1.73_m2} >60 [facility] Comment on above: mL/min/1.73m2 CKD-EP I Creatinine Equation (2020) Hematocrit Auto (Bld) [Volum e fraction]Ordered By: Arnulfo English 03-04-2025 Hematocrit (Bld) [Volume fraction] 36.3 % Low 37-47 [facility] Hemoglobin measurementOrdere d By: Shereenmaxineelie Dohertyantonelizabeth on 03-04-2025 Hemoglobin (Bld) [Mass/Vol] 11.4 g/dL Low 12.0-15.0 [facility] Immature granulocytes/100 WB C Auto (Bld)Ordered By: Arnulfo English 03-04-2025 Immature granulocytes/100 WBC (Bld) 0.300 % 0.0-0.9 [facility] Comment on above: IG% - Immature Granu locytes (promyelocytes, myelocytes and metamyelocytes) > 1% indicates that a LEFT SHIFT is Present. MCV (mean corpuscular volume ) determinationOrdered By: Arnulfo English on 03-04-2025 MCV (RBC) [Entitic vol] 87.5 fL 81-99 [facility] Mean corpuscular hemoglobin (MCH) determinationOrdered By: Arnulfo English on 03-04-2025 MCH (RBC) [Entitic mass] 27.5 pg 27.0-32.0 [facility] Mean corpuscular hemoglobin concentration (MCHC) determinationOrdered By: Arnulfo English on 03-04-2025 MCHC (RBC) [Mass/Vol] 31.4 g/dL Low 32-36 [facility] Mean platelet volume determi nationOrdered By: Arnulfo English on 03-04-2025 Platelet mean volume (Bld) [Entitic vol] 11.5 fL 6.2-12.0 [facility] Monocyte percentageOrdered B y: Arnlufo English on 03-04-2025 Monocytes/100 WBC (Bld) 11.4 % High 0-10 [facility] Neutrophil percentageOrdered By: Arnulfo English on 03-04-2025 Neutrophils/100 WBC (Bld) 49.2 % 47-70 [facility] Nucleated red blood cell per centageOrdered By: Arnulfo English on 03-04-2025 Nucleated RBC/100 WBC (Bld) [Ratio] 0 % 0-5 [facility] Platelet countOrdered By: Teddy English on 03-04-2025 Platelets (Bld) [#/Vol] 264 10*3/uL 150-450 [facility] Potassium measurement (mass/ volume)Ordered By: Arnulfo English on 03-04-2025 Potassium (Unsp spec) [Mass/Vol] 4.1 mmol/L 3.3-5.1 [facility] RBC Auto (Bld) [#/Vol]Ordere d By: Arnulfo English on 03-04-2025 RBC (Bld) [#/Vol] 4.15 10*6/uL Low 4.2-5.4 [facility] Serum creatinine measurement (mass/volume)Ordered By: Arnulfo English on 03-04-2025 Creatinine [Mass/Vol] 0.64 mg/dL Low 0.70-1.20 [facility] Serum glucose measurement (m ass/volume)Ordered By: Arnulfo English on 03-04-2025 Glucose [Mass/Vol] 84 mg/dL 70-99 [facility] Serum or plasma calcium merlyn urement (mass/volume)Ordered By: Arnulfo English on 03-04-2025 Calcium [Mass/Vol] 9.7 mg/dL 7.6-11.0 [facility] Serum or plasma urea nitroge n measurement (mass/volume)Ordered By: Arnulfo English on 03-04-2025 Urea nitrogen [Mass/Vol] 18 mg/dL 4-19 [facility] Sodium levelOrdered By: Shereen skye Tameka on 03-04-2025 Sodium [Moles/Vol] 140 mmol/L 133-145 [facility] White blood cell (WBC) count Ordered By: Arnulfo English on 03-04-2025 WBC (Bld) [#/Vol] 6.1 10*3/uL 4.4-11.0 [facility] T4 freeOrdered By: Arnulfo English on 02-18-2025 Free T4 [Mass/Vol] 1.60 ng/dL High 0.76-1.46 [facility] TSH DL <= 0.005 mIU/L QnOrde red By: Arnulfo English on 02-18-2025 TSH Qn 0.440 uIU/mL 0.300-4.200 [facility] Absolute lymphocyte countOrd ered By: Arnulfo English on 12-03-2024 Lymphocytes Auto (Unsp spec) [#/Vol] 1.81 10*3/uL 0.83-4.51 [facility] Absolute neutrophil countOrd ered By: Arnulfo English on 12-03-2024 Neutrophils (Bld) [#/Vol] 2.8 10*3/uL 2.0-7.7 [facility] Anion gap in Serum or Plasma Ordered By: Arnulfo English on 12-03-2024 Anion gap [Moles/Vol] 8 mmol/L 5-15 [facility] Automated lymphocyte count a s percentage of total leukocytesOrdered By: Arnulfo English on 12-03-2024 Lymphocytes/100 WBC Auto (Unsp spec) 33.2 % 19-41 [facility] BUN/creatinine ratioOrdered By: Arnulfo English on 12-03-2024 Urea nitrogen/Creatinine [Mass ratio] 20.9 mg/mg High 10-20 [facility] Basophil percentageOrdered B y: Arnulfo English on 12-03-2024 Basophils/100 WBC (Bld) 0.9 % 0-1 [facility] Carbon dioxide, total [Moles /volume] in Central venous bloodOrdered By: Arnulfo English on 12-03-2024 CO2 [Moles/Vol] 25.9 mmol/L 21.0-32.0 [facility] Chloride assayOrdered By: Teddy English on 12-03-2024 Chloride [Moles/Vol] 105 mmol/L 98-108 [facility] Eosinophil percentageOrdered By: saranyaparkselie English on 12-03-2024 Eosinophils/100 WBC (Bld) 2.0 % 0-5 [facility] Erythrocyte distribution wid th ratioOrdered By: Arnulfo English on 12-03-2024 Erythrocyte distribution width (RBC) [Ratio] 16.3 % High 11.6-14.6 [facility] Erythrocyte distribution wid th standard deviationOrdered By: Arnulfo English on 12-03-2024 Erythrocyte distribution width (RBC) [Ratio] 50.4 fl High 35.1-43.9 [facility] Glomerular filtration rate ( GFR) estimation/1.73 sq m using serum, plasma, or whole bOrdered By: Arnulfo English on 12-03-2024 GFR/1.73 sq M.predicted among non-blacks MDRD (S/P/Bld) [Vol rate/Area] 79 mL/min/{1.73_m2} >60 [facility] Comment on above: mL/min/1.73m2 CKD-EP I Creatinine Equation (2020) Hematocrit Auto (Bld) [Volum e fraction]Ordered By: Arnulfo English on 12-03-2024 Hematocrit (Bld) [Volume fraction] 33.9 % Low 37-47 [facility] Hemoglobin measurementOrdere d By: Teddysaranyamaxineelie English on 12-03-2024 Hemoglobin (Bld) [Mass/Vol] 10.6 g/dL Low 12.0-15.0 [facility] Immature granulocytes/100 WB C Auto (Bld)Ordered By: Arnulfo English on 12-03-2024 Immature granulocytes/100 WBC (Bld) 0.200 % 0.0-0.9 [facility] Comment on above: IG% - Immature Granu locytes (promyelocytes, myelocytes and metamyelocytes) > 1% indicates that a LEFT SHIFT is Present. MCV (mean corpuscular volume ) determinationOrdered By: Arnulfo English on 12-03-2024 MCV (RBC) [Entitic vol] 85.4 fL 81-99 [facility] Mean corpuscular hemoglobin (MCH) determinationOrdered By: brian English on 12-03-2024 MCH (RBC) [Entitic mass] 26.7 pg Low 27.0-32.0 [facility] Mean corpuscular hemoglobin concentration (MCHC) determinationOrdered By: saranyaparkselie English on 12-03-2024 MCHC (RBC) [Mass/Vol] 31.3 g/dL Low 32-36 [facility] Mean platelet volume determi nationOrdered By: brian English on 12-03-2024 Platelet mean volume (Bld) [Entitic vol] 11.1 fL 6.2-12.0 [facility] Monocyte percentageOrdered B y: Teddybrian English on 12-03-2024 Monocytes/100 WBC (Bld) 13.4 % High 0-10 [facility] Neutrophil percentageOrdered By: saranyaparkselie English on 12-03-2024 Neutrophils/100 WBC (Bld) 50.3 % 47-70 [facility] Nucleated red blood cell per centageOrdered By: brian English on 12-03-2024 Nucleated RBC/100 WBC (Bld) [Ratio] 0 % 0-5 [facility] Platelet countOrdered By: Teddy brian Chassiena on 12-03-2024 Platelets (Bld) [#/Vol] 274 10*3/uL 150-450 [facility] Potassium measurement (mass/ volume)Ordered By: Teddysaranyaskye Chassiena on 12-03-2024 Potassium (Unsp spec) [Mass/Vol] 4.1 mmol/L 3.3-5.1 [facility] RBC Auto (Bld) [#/Vol]Ordere d By: Arnulfo Chassiena on 12-03-2024 RBC (Bld) [#/Vol] 3.97 10*6/uL Low 4.2-5.4 [facility] Serum creatinine measurement (mass/volume)Ordered By: Teddysaranyaskye Chasantonelizabeth on 12-03-2024 Creatinine [Mass/Vol] 0.73 mg/dL 0.70-1.20 [facility] Serum glucose measurement (m ass/volume)Ordered By: Arnulfo Dohertyantonelizabeth on 12-03-2024 Glucose [Mass/Vol] 84 mg/dL 70-99 [facility] Serum or plasma calcium merlyn urement (mass/volume)Ordered By: Teddysaranyaskye Chassiena on 12-03-2024 Calcium [Mass/Vol] 9.4 mg/dL 7.6-11.0 [facility] Serum or plasma urea nitroge n measurement (mass/volume)Ordered By: Teddybrian Dohertysiena 12-03-2024 Urea nitrogen [Mass/Vol] 15 mg/dL 4-19 [facility] Sodium levelOrdered By: Shereen cheung Chasantonelizabeth on 12-03-2024 Sodium [Moles/Vol] 140 mmol/L 133-145 [facility] TSH DL <= 0.005 mIU/L QnOrde red By: Arnulfo Chassiena on 12-03-2024 TSH Qn 3.870 uIU/mL 0.300-4.200 [facility] White blood cell (WBC) count Ordered By: Teddysaranyaskye Chasantonelizabeth on 12-03-2024 WBC (Bld) [#/Vol] 5.5 10*3/uL 4.4-11.0 [facility] T4 freeOrdered By: Arnulfo English on 11-26-2024 Free T4 [Mass/Vol] 1.20 ng/dL 0.76-1.46 [facility] TSH DL <= 0.005 mIU/L QnOrde red By: Arnulfo English on 11-26-2024 TSH Qn 9.810 uIU/mL High 0.300-4.200 [facility] Absolute lymphocyte countOrd ered By: Arnulfo English on 11-05-2024 Lymphocytes Auto (Unsp spec) [#/Vol] 1.77 10*3/uL 0.83-4.51 [facility] Absolute neutrophil countOrd ered By: Arnulfo English on 11-05-2024 Neutrophils (Bld) [#/Vol] 3.5 10*3/uL 2.0-7.7 [facility] Automated lymphocyte count a s percentage of total leukocytesOrdered By: Arnulfo English on 11-05-2024 Lymphocytes/100 WBC Auto (Unsp spec) 27.7 % 19-41 [facility] Basophil percentageOrdered B y: Arnulfo English on 11-05-2024 Basophils/100 WBC (Bld) 0.8 % 0-1 [facility] Eosinophil percentageOrdered By: [facility] Duponte on 11-05-2024 Eosinophils/100 WBC (Bld) 2.5 % 0-5 [facility] Erythrocyte distribution wid th (RBC) [Ratio]Ordered By: Arnulfo Duponte on 11-05-2024 Erythrocyte distribution width (RBC) [Entitic vol] 48.0 fL High 35.1-43.9 [facility] Erythrocyte distribution wid th ratioOrdered By: Arnulfo Duponte on 11-05-2024 Erythrocyte distribution width (RBC) [Ratio] 15.4 % High 11.6-14.6 [facility] Erythrocyte distribution wid th standard deviationOrdered By: saranyaparkselie Duponte on 11-05-2024 Erythrocyte distribution width (RBC) [Ratio] 48.0 fl High 35.1-43.9 [facility] Hematocrit Auto (Bld) [Volum e fraction]Ordered By: Arnulfo English on 11-05-2024 Hematocrit (Bld) [Volume fraction] 31.5 % Low 37-47 [facility] Hemoglobin measurementOrdere d By: Arnulfo English on 11-05-2024 Hemoglobin (Bld) [Mass/Vol] 9.8 g/dL Low 12.0-15.0 [facility] Immature granulocytes/100 WB C Auto (Bld)Ordered By: Arnulfo English on 11-05-2024 Immature granulocytes/100 WBC (Bld) 0.300 % 0.0-0.9 [facility] Comment on above: IG% - Immature Granu locytes (promyelocytes, myelocytes and metamyelocytes) > 1% indicates that a LEFT SHIFT is Present. Lymphocytes Auto (Unsp spec) [#/Vol]Ordered By: Arnulfo English on 11-05-2024 Lymphocytes (Bld) [#/Vol] 1.77 10*3/uL 0.83-4.51 [facility] Lymphocytes/100 WBC Auto (Un sp spec)Ordered By: Arnulfo English on 11-05-2024 Lymphocytes/100 WBC (Bld) 27.7 % 19-41 [facility] MCV (mean corpuscular volume ) determinationOrdered By: Arnulfo English on 11-05-2024 MCV (RBC) [Entitic vol] 85.6 fL 81-99 [facility] Mean corpuscular hemoglobin (MCH) determinationOrdered By: Arnulfo English on 11-05-2024 MCH (RBC) [Entitic mass] 26.6 pg Low 27.0-32.0 [facility] Mean corpuscular hemoglobin concentration (MCHC) determinationOrdered By: Arnulfo English on 11-05-2024 MCHC (RBC) [Mass/Vol] 31.1 g/dL Low 32-36 [facility] Mean platelet volume determi nationOrdered By: Arnulfo English on 11-05-2024 Platelet mean volume (Bld) [Entitic vol] 11.2 fL 6.2-12.0 [facility] Monocyte percentageOrdered B y: Arnulfo English on 11-05-2024 Monocytes/100 WBC (Bld) 13.9 % High 0-10 [facility] Neutrophil percentageOrdered By: Arnulfo Dupontelizabeth on 11-05-2024 Neutrophils/100 WBC (Bld) 54.8 % 47-70 [facility] Nucleated red blood cell per centageOrdered By: Teddysaranyaskye Chasantonelizabeth on 11-05-2024 Nucleated RBC/100 WBC (Bld) [Ratio] 0 % 0-5 [facility] Platelet countOrdered By: Teddy brian Chasantonelizabeth on 11-05-2024 Platelets (Bld) [#/Vol] 266 10*3/uL 150-450 [facility] RBC Auto (Bld) [#/Vol]Ordere d By: Arnulfo Chasantonelizabeth on 11-05-2024 RBC (Bld) [#/Vol] 3.68 10*6/uL Low 4.2-5.4 [facility] White blood cell (WBC) count Ordered By: Shereenmaxineelie Dohertyantonelizabeth on 11-05-2024 WBC (Bld) [#/Vol] 6.4 10*3/uL 4.4-11.0 [facility] T4 freeOrdered By: Teddysaranyaskye Chasantonelizabeth on 10-15-2024 Free T4 [Mass/Vol] 1.00 ng/dL 0.76-1.46 [facility] TSH DL <= 0.005 mIU/L QnOrde red By: Shereenskye Chasantonelizabeth on 10-15-2024 Thyroid Stimulating Hormone (TSH) 7.710 uIU/mL High 0.300-4.200 [facility] TSH Qn 7.710 uIU/mL High 0.300-4.200 [facility] Absolute lymphocyte countOrd ered By: Shereenmaxineelie Dohertyantonelizabeth on 09-03-2024 Lymphocytes Auto (Unsp spec) [#/Vol] 1.82 10*3/uL 0.83-4.51 [facility] Absolute neutrophil countOrd ered By: Shereenmaxineelie Dohertyantonelizabeth on 09-03-2024 Neutrophils (Bld) [#/Vol] 3.2 10*3/uL 2.0-7.7 [facility] Automated lymphocyte count a s percentage of total leukocytesOrdered By: Arnulfo English on 09-03-2024 Lymphocytes/100 WBC Auto (Unsp spec) 29.8 % 19-41 [facility] Basophil percentageOrdered B y: Arnulfo English on 09-03-2024 Basophils/100 WBC (Bld) 0.7 % 0-1 [facility] Blood urea nitrogen (BUN)/cr eatinine ratioOrdered By: Arnulfo English on 09-03-2024 Urea nitrogen/Creatinine [Mass ratio] 34.1 mg/mg High 10-20 [facility] Carbon dioxide measurementOr dered By: Arnulfo English on 09-03-2024 CO2 [Moles/Vol] 26.0 mmol/L 21.0-32.0 [facility] Chloride measurementOrdered By: [facility] English on 09-03-2024 Chloride [Moles/Vol] 110 mmol/L High 98-107 [facility] Direct serum free thyroxine (FT4) measurementOrdered By: Arnulfo English on 09-03-2024 Free T4 [Mass/Vol] 1.30 ng/dL 0.76-1.46 [facility] Eosinophil percentageOrdered By: Arnulfo English on 09-03-2024 Eosinophils/100 WBC (Bld) 2.6 % 0-5 [facility] Erythrocyte distribution wid th (RBC) [Ratio]Ordered By: Arnulfo English on 09-03-2024 Erythrocyte distribution width (RBC) [Entitic vol] 47.6 fL High 35.1-43.9 [facility] Erythrocyte distribution wid th ratioOrdered By: Arnulfo English on 09-03-2024 Erythrocyte distribution width (RBC) [Ratio] 14.7 % High 11.6-14.6 [facility] Erythrocyte distribution wid th standard deviationOrdered By: Arnulfo English on 09-03-2024 Erythrocyte distribution width (RBC) [Ratio] 47.6 fl High 35.1-43.9 [facility] Estimated glomerular filtrat ion rate (GFR) AmericanOrdered By: Arnulfo English on 09-03-2024 Estimated GFR (MDRD) Amer 124 mL/min >60 [facility] Comment on above: GFR Calc Glomerular filtration rate ( GFR) estimationOrdered By: Arnulfo English on 09-03-2024 Estimated GFR (MDRD) Non-Af Amer 103 mL/min >60 [facility] Comment on above: Non- GFR Calc GFR/1.73 sq M.predicted among non-blacks MDRD (S/P/Bld) [Vol rate/Area] 103 mL/min/{1.73_m2} >60 [facility] Comment on above: Non- GFR Calc Glucose measurementOrdered B y: Arnulfo English on 09-03-2024 Glucose [Mass/Vol] 84 mg/dL 74-106 [facility] Hematocrit Auto (Bld) [Volum e fraction]Ordered By: Arnulfo English on 09-03-2024 Hematocrit (Bld) [Volume fraction] 29.4 % Low 37-47 [facility] Hemoglobin measurementOrdere d By: Arnulfo English on 09-03-2024 Hemoglobin (Bld) [Mass/Vol] 8.8 g/dL Low 12.0-15.0 [facility] High density lipoprotein (HD L) measurementOrdered By: Arnulfo English on 09-03-2024 Cholesterol in HDL [Mass/Vol] 74 mg/dL >40 [facility] Comment on above: The drugs N-Acetylcy steine and Metamizole may falsely depress this assay. Reference Range HDL <40 mg/dL Low HDL Cholesterol HDL >or= 60 mg/dL High HDL Cholesterol Immature granulocytes/100 WB C Auto (Bld)Ordered By: Arnulfo English on 09-03-2024 Immature granulocytes/100 WBC (Bld) 0.200 % 0.0-0.9 [facility] Comment on above: IG% - Immature Granu locytes (promyelocytes, myelocytes and metamyelocytes) > 1% indicates that a LEFT SHIFT is Present. Low density lipoprotein (LDL ) cholesterol measurementOrdered By: Arnulfo English on 09-03-2024 Cholesterol in LDL [Mass/Vol] 77 mg/dL 0-130 [facility] Lymphocytes Auto (Unsp spec) [#/Vol]Ordered By: Arnulfo English on 09-03-2024 Lymphocytes (Bld) [#/Vol] 1.82 10*3/uL 0.83-4.51 [facility] Lymphocytes/100 WBC Auto (Un sp spec)Ordered By: Arnulfo English on 09-03-2024 Lymphocytes/100 WBC (Bld) 29.8 % 19-41 [facility] MCV (mean corpuscular volume ) determinationOrdered By: Arnulfo English on 09-03-2024 MCV (RBC) [Entitic vol] 87.2 fL 81-99 [facility] Mean corpuscular hemoglobin (MCH) determinationOrdered By: Arnulfo English on 09-03-2024 MCH (RBC) [Entitic mass] 26.1 pg Low 27.0-32.0 [facility] Mean corpuscular hemoglobin concentration (MCHC) determinationOrdered By: Arnulfo English on 09-03-2024 MCHC (RBC) [Mass/Vol] 29.9 g/dL Low 32-36 [facility] Mean platelet volume determi nationOrdered By: Arnulfo English on 09-03-2024 Platelet mean volume (Bld) [Entitic vol] 11.3 fL 6.2-12.0 [facility] Monocyte percentageOrdered B y: Arnulfo English on 09-03-2024 Monocytes/100 WBC (Bld) 14.8 % High 0-10 [facility] Neutrophil percentageOrdered By: Arnulfo English on 09-03-2024 Neutrophils/100 WBC (Bld) 51.9 % 47-70 [facility] Nucleated red blood cell per centageOrdered By: Arnulfo English on 09-03-2024 Nucleated RBC/100 WBC (Bld) [Ratio] 0 % 0-5 [facility] Platelet countOrdered By: Teddy English on 09-03-2024 Platelets (Bld) [#/Vol] 262 10*3/uL 150-450 [facility] Potassium measurementOrdered By: Arnulfo English on 09-03-2024 Potassium [Moles/Vol] 4.1 mmol/L 3.5-5.1 [facility] RBC Auto (Bld) [#/Vol]Ordere d By: Arnulfo English on 09-03-2024 RBC (Bld) [#/Vol] 3.37 10*6/uL Low 4.2-5.4 [facility] Serum anion gap measurementO rdered By: Arnulfo English on 09-03-2024 Anion gap [Moles/Vol] 5 mmol/L 5-15 [facility] Serum or plasma calcium merlyn urement (mass/volume)Ordered By: Arnulfo English on 09-03-2024 Calcium [Mass/Vol] 9.1 mg/dL 8.5-10.1 [facility] Serum or plasma cholesterol measurement (mass/volume)Ordered By: Arnulfo English on 09-03-2024 Cholesterol [Mass/Vol] 162 mg/dL <200 [facility] Comment on above: <200 mg/dL Desirable 200-240 mg/dL Borderline >240 mg/dL High Risk Serum or plasma creatinine m easurement (mass/volume)Ordered By: Arnulfo English on 09-03-2024 Creatinine [Mass/Vol] 0.59 mg/dL 0.55-1.02 [facility] Comment on above: The validity of the calculated GFR & GFRAA in patients over 70 years has not been determined. Clinical correlation is essential. Serum or plasma thyroid stim ulating hormone (TSH) measurement (units/volume)Ordered By: Arnulfo English on 09-03-2024 TSH Qn 0.255 uIU/mL Low 0.358-3.740 [facility] Serum or plasma urea nitroge n measurement (mass/volume)Ordered By: Arnulfo English on 09-03-2024 Urea nitrogen [Mass/Vol] 20 mg/dL High 7-18 [facility] Sodium levelOrdered By: Shereen English on 09-03-2024 Sodium [Moles/Vol] 141 mmol/L 136-145 [facility] TSH QnOrdered By: Arnulfo English on 09-03-2024 Thyroid Stimulating Hormone (TSH) 0.255 uIU/mL Low 0.358-3.740 [facility] Triglycerides measurementOrd ered By: Arnulfo English on 09-03-2024 Triglyceride [Mass/Vol] 56 mg/dL <199 [facility] Comment on above: The drugs N-Acetylcy steine and Metamizole may falsely depress this assay.Serum Triglycerides Reference Interval Normal <150 mg/dL Borderline high 150 - 199 mg/dL High 200 - 499 mg/dL Very High > or = 500 mg/dL Very low density lipoprotein (VLDL) cholesterol measurementOrdered By: Arnulfo English on 09-03-2024 Very low density lipoprotein (VLDL) cholesterol measurement 11 mg/dL 5-40 [facility] VLDL Cholesterol 11 mg/dL 5-40 [facility] White blood cell (WBC) count Ordered By: Arnulfo English on 09-03-2024 WBC (Bld) [#/Vol] 6.1 10*3/uL 4.4-11.0 [facility] Serum or plasma thyroid stim ulating hormone (TSH) measurement (units/volume)Ordered By: Arnulfo English on 11-26-2023 TSH Qn 1.32 uIU/mL 0.358-3.74 [facility] Thin prep Papanicolaou smear with manual screeningOrdered By: Arnulfo English on 11-26-2023 Thin prep Papanicolaou smear with manual screening 1.27 ng/dL 0.76-1.46 [facility] Bilirubin Test strip Ql (U)O rdered By: Arnulfo English on 11-24-2023 Bilirubin Ql (U) Negative Negative [facility] Culture, urineOrdered By: Teddy English on 11-24-2023 Bacteria identified Cx Nom (U) Escherichia coli [facility] Ketones Test strip Ql (U)Ord ered By: Arnulfo English on 11-24-2023 Ketones Ql (U) Negative Negative [facility] Nitrite Test strip Ql (U)Ord ered By: Arnulfo English on 11-24-2023 Nitrite Ql (U) Positive Negative [facility] Protein Test strip Ql (U)Ord ered By: Arnulfo English on 11-24-2023 Protein Ql (U) Negative Negative [facility] Urine blood detectionOrdered By: Arnulfo English on 11-24-2023 RBC Ql (U) 25 /ul Negative [facility] Urine clarityOrdered By: Kota English on 11-24-2023 Clarity (U) Clear Clear [facility] Urine color determinationOrd ered By: Arnulfo English on 11-24-2023 Color (U) Straw Yellow [facility] Urine glucose detectionOrder ed By: Arnulfo English on 11-24-2023 Glucose Ql (U) Normal mg/dl Normal [facility] Urine leukocyte esterase det ection by dipstickOrdered By: Arnulfo English on 11-24-2023 Leukocyte esterase Test strip Ql (U) 500 /ul Negative [facility] Urine pHOrdered By: Aurelia English on 11-24-2023 pH (U) 7.0 [pH] 5.0 - 8.0 [facility] Urine specific gravity measu rementOrdered By: Arnulfo English on 11-24-2023 Specific gravity (U) [Rel density] 1.010 1.002-1.030 [facility] Urine urobilinogen measureme ntOrdered By: Arnulfo English on 11-24-2023 Urobilinogen Ql (U) Normal mg/dl Normal [facility] Absolute lymphocyte countOrd ered By: Arnulfo English on 10-10-2023 Lymphocytes Auto (Unsp spec) [#/Vol] 1.87 10*3/uL 0.83-4.51 [facility] Automated lymphocyte count a s percentage of total leukocytesOrdered By: Arnulfo English on 10-10-2023 Lymphocytes/100 WBC Auto (Unsp spec) 29.7 % 19-41 [facility] Basophil percentageOrdered B y: Arnulfo English on 10-10-2023 Basophils/100 WBC (Bld) 0.6 % 0-1 [facility] Chloride [Moles/Vol] 109 mmol/L 98-107 [facility] Eosinophils/100 WBC (Bld) 2.7 % 0-5 [facility] Glucose [Mass/Vol] 88 mg/dL 74-106 [facility] Hemoglobin (Bld) [Mass/Vol] 10.3 g/dL 12.0-15.0 [facility] Monocytes/100 WBC (Bld) 12.7 % 0-10 [facility] Neutrophils (Bld) [#/Vol] 3.4 10*3/uL 2.0-7.7 [facility] Neutrophils/100 WBC (Bld) 54.1 % 47-70 [facility] Potassium [Moles/Vol] 4.1 mmol/L 3.5-5.1 [facility] Sodium [Moles/Vol] 138 mmol/L 136-145 [facility] WBC (Bld) [#/Vol] 6.3 10*3/uL 4.4-11.0 [facility] Determination of erythrocyte mean corpuscular volume (MCV)Ordered By: Arnulfo English on 10-10-2023 MCV (RBC) [Entitic vol] 90.3 fL 81-99 [facility] Erythrocyte distribution wid th ratioOrdered By: Arnulfo English on 10-10-2023 Erythrocyte distribution width (RBC) [Ratio] 14.4 % 11.6-14.6 [facility] Erythrocyte distribution wid th standard deviationOrdered By: Arnulfo English on 10-10-2023 Erythrocyte distribution width (RBC) [Entitic vol] 47.2 fL 35.1-43.9 [facility] Hematocrit Auto (Bld) [Volum e fraction]Ordered By: Arnulfo English on 10-10-2023 Hematocrit (Bld) [Volume fraction] 33.4 % 37-47 [facility] Immature granulocytes/100 WB C Auto (Bld)Ordered By: Arnulfo English on 10-10-2023 Immature granulocytes/100 WBC (Bld) 0.200 % 0.0-0.9 [facility] Comment on above: IG% - Immature Granu locytes (promyelocytes, myelocytes and metamyelocytes) > 1% indicates that a LEFT SHIFT is Present. Laboratory - Chemistry and C hemistry - challengeOrdered By: Arnulfo English on 10-10-2023 CO2 [Moles/Vol] 25.0 mmol/L 21.0-32.0 [facility] Urea nitrogen/Creatinine [Mass ratio] 38.2 mg/mg 10-20 [facility] Laboratory - Hematology and Cell countsOrdered By: Arnulfo English on 10-10-2023 MCH (RBC) [Entitic mass] 27.8 pg 27.0-32.0 [facility] MCHC (RBC) [Mass/Vol] 30.8 g/dL 32-36 [facility] Nucleated RBC/100 WBC (Bld) [Ratio] 0 % 0-5 [facility] Platelet mean volume (Bld) [Entitic vol] 11.5 fL 6.2-12.0 [facility] Platelets (Bld) [#/Vol] 245 10*3/uL 150-450 [facility] No Panel InformationOrdered By: Arnulfo English on 10-10-2023 Estimated GFR (MDRD) Amer 121 mL/min >60 [facility] Comment on above: GFR Calc Estimated GFR (MDRD) Non-Af Amer 100 mL/min >60 [facility] Comment on above: Non- GFR Calc RBC Auto (Bld) [#/Vol]Ordere d By: Arnulfo English on 10-10-2023 RBC (Bld) [#/Vol] 3.70 10*6/uL 4.2-5.4 [facility] Serum or plasma calcium merlyn urement (mass/volume)Ordered By: Arnulfo English on 10-10-2023 Calcium [Mass/Vol] 9.3 mg/dL 8.5-10.1 [facility] Serum or plasma creatinine m easurement (mass/volume)Ordered By: Arnulfo nEglish on 10-10-2023 Creatinine [Mass/Vol] 0.60 mg/dL 0.55-1.02 [facility] Comment on above: The validity of the calculated GFR & GFRAA in patients over 70 years has not been determined. Clinical correlation is essential. Serum or plasma urea nitroge n measurement (mass/volume)Ordered By: Arnulfo English on 10-10-2023 Urea nitrogen [Mass/Vol] 23 mg/dL 7-18 [facility] Thin prep Papanicolaou smear with manual screeningOrdered By: Arnulfo English on 10-10-2023 Thin prep Papanicolaou smear with manual screening 4 5-15 [facility] Serum or plasma thyroid stim ulating hormone (TSH) measurement (units/volume)Ordered By: Arnulfo English on 10-01-2023 TSH Qn 1.40 uIU/mL 0.358-3.74 [facility] Thin prep Papanicolaou smear with manual screeningOrdered By: Arnulfo English on 10-01-2023 Thin prep Papanicolaou smear with manual screening 1.42 ng/dL 0.76-1.46 [facility] Basophil percentageOrdered B y: Arnulfo English on 09-05-2023 Cholesterol [Mass/Vol] 116 mg/dL <200 [facility] Comment on above: <200 mg/dL Desirable 200-240 mg/dL Borderline >240 mg/dL High Risk Triglyceride [Mass/Vol] 85 mg/dL <199 [facility] Comment on above: The drugs N-Acetylcy steine and Metamizole may falsely depress this assay.Serum Triglycerides Reference Interval Normal <150 mg/dL Borderline high 150 - 199 mg/dL High 200 - 499 mg/dL Very High > or = 500 mg/dL High density lipoprotein (HD L) measurementOrdered By: Arnulfo English on 09-05-2023 Cholesterol in HDL (Body fld) [Mass/Vol] 58 mg/dL >40 [facility] Comment on above: The drugs N-Acetylcy steine and Metamizole may falsely depress this assay. Reference Range HDL <40 mg/dL Low HDL Cholesterol HDL >or= 60 mg/dL High HDL Cholesterol Low density lipoprotein (LDL ) cholesterol measurementOrdered By: Arnulfo English on 09-05-2023 Cholesterol in LDL (Body fld) [Moles/Vol] 41 mg/dL 0-130 [facility] Very low density lipoprotein (VLDL) cholesterol measurementOrdered By: Arnulfo English on 09-05-2023 Cholesterol in VLDL Calc [Moles/Vol] 17 mg/dL 5-40 [facility] Absolute lymphocyte countOrd ered By: Teddybrian Dohertyantonelizabeth on 07-04-2023 Lymphocytes Auto (Unsp spec) [#/Vol] 2.09 10*3/uL 0.83-4.51 [facility] Basophil percentageOrdered B y: Arnulfo Dohertyantonelizabeth on 07-04-2023 Basophils/100 WBC (Bld) 0.6 % 0-1 [facility] Chloride [Moles/Vol] 107 mmol/L 98-107 [facility] Eosinophils/100 WBC (Bld) 4.6 % 0-5 [facility] Glucose [Mass/Vol] 73 mg/dL 74-106 [facility] Neutrophils (Bld) [#/Vol] 3.0 10*3/uL 2.0-7.7 [facility] Neutrophils/100 WBC (Bld) 47.2 % 47-70 [facility] Potassium [Moles/Vol] 4.1 mmol/L 3.5-5.1 [facility] Sodium [Moles/Vol] 141 mmol/L 136-145 [facility] WBC (Bld) [#/Vol] 6.4 10*3/uL 4.4-11.0 [facility] Blood erythrocytes count (nu mber/volume)Ordered By: Arnulfo English on 07-04-2023 RBC (Bld) [#/Vol] 3.83 10*6/uL 4.2-5.4 [facility] Blood hemoglobin measurement (mass/volume)Ordered By: Arnulfo English on 07-04-2023 Hemoglobin (Bld) [Mass/Vol] 10.7 g/dL 12.0-15.0 [facility] Blood lymphocytes/100 leukoc ytesOrdered By: Arnulfo English on 07-04-2023 Lymphocytes/100 WBC (Bld) 32.8 % 19-41 [facility] Blood monocytes/100 leukocyt esOrdered By: Arnulfo Duponte on 07-04-2023 Monocytes/100 WBC (Bld) 14.6 % 0-10 [facility] Blood platelet mean volumeOr dered By: Efbrian English on 07-04-2023 Platelet mean volume (Bld) [Entitic vol] 11.9 fL 6.2-12.0 [facility] Determination of erythrocyte mean corpuscular volume (MCV)Ordered By: Arnulfo English on 07-04-2023 MCV (RBC) [Entitic vol] 93.2 fL 81-99 [facility] Hematocrit Auto (Bld) [Volum e fraction]Ordered By: Arnulfo English on 07-04-2023 Hematocrit (Bld) [Volume fraction] 35.7 % 37-47 [facility] Laboratory - Chemistry and C hemistry - challengeOrdered By: saranyaparkselie English on 07-04-2023 CO2 [Moles/Vol] 27.0 mmol/L 21.0-32.0 [facility] Urea nitrogen/Creatinine [Mass ratio] 30.8 mg/mg 10-20 [facility] Laboratory - Hematology and Cell countsOrdered By: Shereenparkselie English on 07-04-2023 Erythrocyte distribution width (RBC) [Entitic vol] 46.9 fL 35.1-43.9 [facility] Erythrocyte distribution width (RBC) [Ratio] 13.8 % 11.6-14.6 [facility] Immature granulocytes/100 WBC (Bld) 0.200 % 0.0-0.9 [facility] Comment on above: IG% - Immature Granu locytes (promyelocytes, myelocytes and metamyelocytes) > 1% indicates that a LEFT SHIFT is Present. MCH (RBC) [Entitic mass] 27.9 pg 27.0-32.0 [facility] Nucleated RBC/100 WBC (Bld) [Ratio] 0 % 0-5 [facility] MCHC Auto (RBC) [Mass/Vol]Or dered By: Arnulfo English on 07-04-2023 MCHC (RBC) [Mass/Vol] 30.0 g/dL 32-36 [facility] No Panel InformationOrdered By: Arnulfo English on 07-04-2023 Estimated GFR (MDRD) Amer 144 mL/min >60 [facility] Comment on above: GFR Calc Estimated GFR (MDRD) Non-Af Amer 119 mL/min >60 [facility] Comment on above: Non- GFR Calc Platelets bldOrdered By: Kota English on 07-04-2023 Platelets (Bld) [#/Vol] 220 10*3/uL 150-450 [facility] Serum or plasma calcium merlyn urement (mass/volume)Ordered By: Arnulfo English on 07-04-2023 Calcium [Mass/Vol] 8.6 mg/dL 8.5-10.1 [facility] Serum or plasma creatinine m easurement (mass/volume)Ordered By: Arnulfo English on 07-04-2023 Creatinine [Mass/Vol] 0.52 mg/dL 0.55-1.02 [facility] Comment on above: The validity of the calculated GFR & GFRAA in patients over 70 years has not been determined. Clinical correlation is essential. Serum or plasma urea nitroge n measurement (mass/volume)Ordered By: Arnulfo English on 07-04-2023 Urea nitrogen [Mass/Vol] 16 mg/dL 7-18 [facility] Thin prep Papanicolaou smear with manual screeningOrdered By: Arnulfo English on 07-04-2023 Thin prep Papanicolaou smear with manual screening 7 5-15 [facility] Basophil percentageOrdered B y: Arnulfo English on 05-23-2023 Bilirubin [Mass/Vol] 0.30 mg/dL 0.20-1.00 [facility] Comment on above: For patients on eltr ombopag therapy, use of Dimension [place] TBIL is not recommended. Protein [Mass/Vol] 7.0 g/dL 6.4-8.2 [facility] Direct bilirubinOrdered By: Arnulfo English on 05-23-2023 Bilirubin.direct [Mass/Vol] 0.12 mg/dL 0.00-0.30 [facility] Laboratory - Chemistry and C hemistry - challengeOrdered By: Arnulfo English on 05-23-2023 ALP [Catalytic activity/Vol] 95 U/L 45-117 [facility] ALT [Catalytic activity/Vol] 31 U/L 13-56 [facility] Free T4 [Mass/Vol] 1.09 ng/dL 0.76-1.46 [facility] Globulin (S) [Mass/Vol] 3.6 g/dL 2.2-4.2 [facility] No Panel InformationOrdered By: Arnulfo English on 05-23-2023 Thyroid Stimulating Hormone (TSH) 8.94 uIU/mL 0.358-3.74 [facility] Serum or plasma albumin merlyn urement (mass/volume)Ordered By: Arnulfo English on 05-23-2023 Albumin [Mass/Vol] 3.4 g/dL 3.2-5.0 [facility] Thin prep Papanicolaou smear with manual screeningOrdered By: Arnulfo English on 05-23-2023 Thin prep Papanicolaou smear with manual screening 38 U/L 15-37 [facility] Basophil percentageOrdered B y: Arnulfo English on 02-21-2023 Bilirubin [Mass/Vol] 0.30 mg/dL 0.20-1.00 [facility] Comment on above: For patients on eltr ombopag therapy, use of Dim[employer] [place] TBIL is not recommended. Protein [Mass/Vol] 6.8 g/dL 6.4-8.2 [facility] Direct bilirubinOrdered By: Arnulfo English on 02-21-2023 Bilirubin.direct [Mass/Vol] 0.09 mg/dL 0.00-0.30 [facility] Laboratory - Chemistry and C hemistry - challengeOrdered By: Arnulfo English on 02-21-2023 ALP [Catalytic activity/Vol] 105 U/L 45-117 [facility] ALT [Catalytic activity/Vol] 26 U/L 13-56 [facility] Free T4 [Mass/Vol] 0.94 ng/dL 0.76-1.46 [facility] Globulin (S) [Mass/Vol] 3.7 g/dL 2.2-4.2 [facility] No Panel InformationOrdered By: Arnulfo English on 02-21-2023 Thyroid Stimulating Hormone (TSH) 11.20 uIU/mL 0.358-3.74 [facility] Serum or plasma albumin merlyn urement (mass/volume)Ordered By: Arnulfo English on 02-21-2023 Albumin [Mass/Vol] 3.1 g/dL 3.2-5.0 [facility] Thin prep Papanicolaou smear with manual screeningOrdered By: Arnulfo English on 02-21-2023 Thin prep Papanicolaou smear with manual screening 34 U/L 15-37 [facility] Basophil percentageOrdered B y: Arnulfo English on 01-09-2023 Chloride [Moles/Vol] 109 mmol/L 98-107 [facility] Glucose [Mass/Vol] 90 mg/dL 74-106 [facility] Potassium [Moles/Vol] 4.0 mmol/L 3.5-5.1 [facility] Sodium [Moles/Vol] 141 mmol/L 136-145 [facility] WBC (Bld) [#/Vol] 5.1 10*3/uL 4.4-11.0 [facility] Blood erythrocytes count (nu mber/volume)Ordered By: Arnulfo English on 01-09-2023 RBC (Bld) [#/Vol] 3.93 10*6/uL 4.2-5.4 [facility] Blood hemoglobin measurement (mass/volume)Ordered By: Arnulfo English on 01-09-2023 Hemoglobin (Bld) [Mass/Vol] 11.0 g/dL 12.0-15.0 [facility] Blood platelet mean volumeOr dered By: Arnulfo English on 01-09-2023 Platelet mean volume (Bld) [Entitic vol] 11.7 fL 6.2-12.0 [facility] Determination of erythrocyte mean corpuscular volume (MCV)Ordered By: Arnulfo English on 01-09-2023 MCV (RBC) [Entitic vol] 90.1 fL 81-99 [facility] Hematocrit Auto (Bld) [Volum e fraction]Ordered By: Arnulfo English on 01-09-2023 Hematocrit (Bld) [Volume fraction] 35.4 % 37-47 [facility] Laboratory - Chemistry and C hemistry - challengeOrdered By: Arnulfo English on 01-09-2023 CO2 [Moles/Vol] 27.0 mmol/L 21.0-32.0 [facility] Free T4 [Mass/Vol] 1.52 ng/dL 0.76-1.46 [facility] Urea nitrogen/Creatinine [Mass ratio] 31.9 mg/mg 10-20 [facility] Laboratory - Hematology and Cell countsOrdered By: Arnulfo English on 01-09-2023 Erythrocyte distribution width (RBC) [Entitic vol] 45.4 fL 35.1-43.9 [facility] Erythrocyte distribution width (RBC) [Ratio] 13.8 % 11.6-14.6 [facility] MCH (RBC) [Entitic mass] 28.0 pg 27.0-32.0 [facility] MCHC Auto (RBC) [Mass/Vol]Or dered By: Arnulfo English on 01-09-2023 MCHC (RBC) [Mass/Vol] 31.1 g/dL 32-36 [facility] No Panel InformationOrdered By: Arnulfo English on 01-09-2023 Estimated GFR (MDRD) Amer 149 mL/min >60 [facility] Comment on above: GFR Calc Estimated GFR (MDRD) Non-Af Amer 123 mL/min >60 [facility] Comment on above: Non- GFR Calc Thyroid Stimulating Hormone (TSH) 0.20 uIU/mL 0.358-3.74 [facility] Platelets bldOrdered By: Kota English on 01-09-2023 Platelets (Bld) [#/Vol] 215 10*3/uL 150-450 [facility] Serum or plasma calcium merlyn urement (mass/volume)Ordered By: Arnulfo English on 01-09-2023 Calcium [Mass/Vol] 8.8 mg/dL 8.5-10.1 [facility] Serum or plasma creatinine m easurement (mass/volume)Ordered By: Arnulfo English on 01-09-2023 Creatinine [Mass/Vol] 0.50 mg/dL 0.55-1.02 [facility] Comment on above: The validity of the calculated GFR & GFRAA in patients over 70 years has not been determined. Clinical correlation is essential. Serum or plasma urea nitroge n measurement (mass/volume)Ordered By: Arnulfo English on 01-09-2023 Urea nitrogen [Mass/Vol] 16 mg/dL 7-18 [facility] Thin prep Papanicolaou smear with manual screeningOrdered By: Arnulfo English on 01-09-2023 Thin prep Papanicolaou smear with manual screening 5 5-15 [facility] Basophil percentageOrdered B y: Arnulfo English on 12-12-2022 Chloride [Moles/Vol] 107 mmol/L 98-107 [facility] Glucose [Mass/Vol] 88 mg/dL 74-106 [facility] Potassium [Moles/Vol] 4.0 mmol/L 3.5-5.1 [facility] Sodium [Moles/Vol] 138 mmol/L 136-145 [facility] WBC (Bld) [#/Vol] 5.3 10*3/uL 4.4-11.0 [facility] Blood erythrocytes count (nu mber/volume)Ordered By: Shereenparkselie English on 12-12-2022 RBC (Bld) [#/Vol] 4.12 10*6/uL 4.2-5.4 [facility] Blood hemoglobin measurement (mass/volume)Ordered By: saranyaparkselie English on 12-12-2022 Hemoglobin (Bld) [Mass/Vol] 11.2 g/dL 12.0-15.0 [facility] Blood platelet mean volumeOr dered By: Arnulfo English on 12-12-2022 Platelet mean volume (Bld) [Entitic vol] 11.3 fL 6.2-12.0 [facility] Determination of erythrocyte mean corpuscular volume (MCV)Ordered By: Arnulfo English on 12-12-2022 MCV (RBC) [Entitic vol] 90.3 fL 81-99 [facility] Hematocrit Auto (Bld) [Volum e fraction]Ordered By: Arnulfo English on 12-12-2022 Hematocrit (Bld) [Volume fraction] 37.2 % 37-47 [facility] Laboratory - Chemistry and C hemistry - challengeOrdered By: Arnulfo English on 12-12-2022 CO2 [Moles/Vol] 28.0 mmol/L 21.0-32.0 [facility] Urea nitrogen/Creatinine [Mass ratio] 25.6 mg/mg 10-20 [facility] Laboratory - Hematology and Cell countsOrdered By: Arnulfo English on 12-12-2022 Erythrocyte distribution width (RBC) [Entitic vol] 45.2 fL 35.1-43.9 [facility] Erythrocyte distribution width (RBC) [Ratio] 13.6 % 11.6-14.6 [facility] MCH (RBC) [Entitic mass] 27.2 pg 27.0-32.0 [facility] MCHC Auto (RBC) [Mass/Vol]Or dered By: Arnulfo English on 12-12-2022 MCHC (RBC) [Mass/Vol] 30.1 g/dL 32-36 [facility] No Panel InformationOrdered By: Arnulfo English on 12-12-2022 Estimated GFR (MDRD) Amer 147 mL/min >60 [facility] Comment on above: GFR Calc Estimated GFR (MDRD) Non-Af Amer 122 mL/min >60 [facility] Comment on above: Non- GFR Calc Platelets bldOrdered By: Kota English on 12-12-2022 Platelets (Bld) [#/Vol] 226 10*3/uL 150-450 [facility] Serum or plasma calcium merlyn urement (mass/volume)Ordered By: Arnulfo English on 12-12-2022 Calcium [Mass/Vol] 9.1 mg/dL 8.5-10.1 [facility] Serum or plasma creatinine m easurement (mass/volume)Ordered By: Arnulfo English on 12-12-2022 Creatinine [Mass/Vol] 0.51 mg/dL 0.55-1.02 [facility] Comment on above: The validity of the calculated GFR & GFRAA in patients over 70 years has not been determined. Clinical correlation is essential. Serum or plasma urea nitroge n measurement (mass/volume)Ordered By: Arnulfo English on 12-12-2022 Urea nitrogen [Mass/Vol] 13 mg/dL 7-18 [facility] Thin prep Papanicolaou smear with manual screeningOrdered By: Arnulfo English on 12-12-2022 Thin prep Papanicolaou smear with manual screening 3 5-15 [facility] Basophil percentageOrdered B y: Arnulfo English on 11-14-2022 Chloride [Moles/Vol] 108 mmol/L 98-107 [facility] Glucose [Mass/Vol] 91 mg/dL 74-106 [facility] Potassium [Moles/Vol] 4.0 mmol/L 3.5-5.1 [facility] Sodium [Moles/Vol] 140 mmol/L 136-145 [facility] WBC (Bld) [#/Vol] 6.0 10*3/uL 4.4-11.0 [facility] Blood erythrocytes count (nu mber/volume)Ordered By: Arnulfo English on 11-14-2022 RBC (Bld) [#/Vol] 4.05 10*6/uL 4.2-5.4 [facility] Blood hemoglobin measurement (mass/volume)Ordered By: Arnulfo Egnlish on 11-14-2022 Hemoglobin (Bld) [Mass/Vol] 11.2 g/dL 12.0-15.0 [facility] Blood platelet mean volumeOr dered By: Arnulfo English on 11-14-2022 Platelet mean volume (Bld) [Entitic vol] 11.8 fL 6.2-12.0 [facility] Determination of erythrocyte mean corpuscular volume (MCV)Ordered By: Arnulfo English on 11-14-2022 MCV (RBC) [Entitic vol] 90.9 fL 81-99 [facility] Hematocrit Auto (Bld) [Volum e fraction]Ordered By: Arnulfo English on 11-14-2022 Hematocrit (Bld) [Volume fraction] 36.8 % 37-47 [facility] - Chemistry and C hemistry - challengeOrdered By: Arnulfo English on 11-14-2022 CO2 [Moles/Vol] 29.0 mmol/L 21.0-32.0 [facility] Urea nitrogen/Creatinine [Mass ratio] 33.0 mg/mg 10-20 [facility] - Hematology and Cell countsOrdered By: Arnulfo English on 11-14-2022 Erythrocyte distribution width (RBC) [Entitic vol] 46.6 fL 35.1-43.9 [facility] Erythrocyte distribution width (RBC) [Ratio] 13.9 % 11.6-14.6 [facility] MCH (RBC) [Entitic mass] 27.7 pg 27.0-32.0 [facility] MCHC Auto (RBC) [Mass/Vol]Or dered By: Arnulfo English on 11-14-2022 MCHC (RBC) [Mass/Vol] 30.4 g/dL 32-36 [facility] No Panel InformationOrdered By: Arnulfo English on 11-14-2022 Estimated GFR (MDRD) Amer 128 mL/min >60 [facility] Comment on above: GFR Calc Estimated GFR (MDRD) Non-Af Amer 105 mL/min >60 [facility] Comment on above: Non- GFR Calc Platelets bldOrdered By: Kota English on 11-14-2022 Platelets (Bld) [#/Vol] 230 10*3/uL 150-450 [facility] Serum or plasma calcium merlyn urement (mass/volume)Ordered By: Arnulfo English on 11-14-2022 Calcium [Mass/Vol] 9.2 mg/dL 8.5-10.1 [facility] Serum or plasma creatinine m easurement (mass/volume)Ordered By: Arnulfo English on 11-14-2022 Creatinine [Mass/Vol] 0.58 mg/dL 0.55-1.02 [facility] Comment on above: The validity of the calculated GFR & GFRAA in patients over 70 years has not been determined. Clinical correlation is essential. Serum or plasma urea nitroge n measurement (mass/volume)Ordered By: Arnulfo English on 11-14-2022 Urea nitrogen [Mass/Vol] 19 mg/dL 7-18 [facility] Thin prep Papanicolaou smear with manual screeningOrdered By: Arnulfo English on 11-14-2022 Thin prep Papanicolaou smear with manual screening 3 5-15 [facility] Basophil percentageOrdered B y: Arnulfo English on 10-17-2022 Chloride [Moles/Vol] 105 mmol/L 98-107 [facility] Glucose [Mass/Vol] 72 mg/dL 74-106 [facility] Potassium [Moles/Vol] 4.1 mmol/L 3.5-5.1 [facility] Sodium [Moles/Vol] 139 mmol/L 136-145 [facility] WBC (Bld) [#/Vol] 5.3 10*3/uL 4.4-11.0 [facility] Blood erythrocytes count (nu mber/volume)Ordered By: Arnulfo English on 10-17-2022 RBC (Bld) [#/Vol] 4.19 10*6/uL 4.2-5.4 [facility] Blood hemoglobin measurement (mass/volume)Ordered By: Arnulfo English on 10-17-2022 Hemoglobin (Bld) [Mass/Vol] 11.7 g/dL 12.0-15.0 [facility] Blood platelet mean volumeOr dered By: Arnulfo English on 10-17-2022 Platelet mean volume (Bld) [Entitic vol] 11.9 fL 6.2-12.0 [facility] Determination of erythrocyte mean corpuscular volume (MCV)Ordered By: Arnulfo English on 10-17-2022 MCV (RBC) [Entitic vol] 90.9 fL 81-99 [facility] Hematocrit Auto (Bld) [Volum e fraction]Ordered By: Arnulfo English on 10-17-2022 Hematocrit (Bld) [Volume fraction] 38.1 % 37-47 [facility] - Chemistry and C hemistry - challengeOrdered By: Arnulfo English on 10-17-2022 CO2 [Moles/Vol] 27.0 mmol/L 21.0-32.0 [facility] Urea nitrogen/Creatinine [Mass ratio] 25.3 mg/mg 10-20 [facility] - Hematology and Cell countsOrdered By: Arnulfo English on 10-17-2022 Erythrocyte distribution width (RBC) [Entitic vol] 46.3 fL 35.1-43.9 [facility] Erythrocyte distribution width (RBC) [Ratio] 13.9 % 11.6-14.6 [facility] MCH (RBC) [Entitic mass] 27.9 pg 27.0-32.0 [facility] MCHC Auto (RBC) [Mass/Vol]Or dered By: Arnulfo English on 10-17-2022 MCHC (RBC) [Mass/Vol] 30.7 g/dL 32-36 [facility] No Panel InformationOrdered By: Arnulfo English on 10-17-2022 Estimated GFR (MDRD) Amer 114 mL/min >60 [facility] Comment on above: GFR Calc Estimated GFR (MDRD) Non-Af Amer 95 mL/min >60 [facility] Comment on above: Non- GFR Calc Platelets bldOrdered By: Kota English on 10-17-2022 Platelets (Bld) [#/Vol] 247 10*3/uL 150-450 [facility] Serum or plasma calcium merlyn urement (mass/volume)Ordered By: Arnulfo English on 10-17-2022 Calcium [Mass/Vol] 9.5 mg/dL 8.5-10.1 [facility] Serum or plasma creatinine m easurement (mass/volume)Ordered By: Arnulfo English on 10-17-2022 Creatinine [Mass/Vol] 0.63 mg/dL 0.55-1.02 [facility] Comment on above: The validity of the calculated GFR & GFRAA in patients over 70 years has not been determined. Clinical correlation is essential. Serum or plasma urea nitroge n measurement (mass/volume)Ordered By: Arnulfo English on 10-17-2022 Urea nitrogen [Mass/Vol] 16 mg/dL 7-18 [facility] Thin prep Papanicolaou smear with manual screeningOrdered By: Arnulfo English on 10-17-2022 Thin prep Papanicolaou smear with manual screening 7 5-15 [facility] Basophil percentageOrdered B y: Billy Loja on 09-12-2022 Chloride [Moles/Vol] 106 mmol/L 98-107 [facility] Cholesterol [Mass/Vol] 112 mg/dL <200 [facility] Comment on above: <200 mg/dL Desirable 200-240 mg/dL Borderline >240 mg/dL High Risk Glucose [Mass/Vol] 85 mg/dL 74-106 [facility] Potassium [Moles/Vol] 3.9 mmol/L 3.5-5.1 [facility] Sodium [Moles/Vol] 139 mmol/L 136-145 [facility] Triglyceride [Mass/Vol] 56 mg/dL <199 [facility] Comment on above: The drugs N-Acetylcy steine and Metamizole may falsely depress this assay.Serum Triglycerides Reference Interval Normal <150 mg/dL Borderline high 150 - 199 mg/dL High 200 - 499 mg/dL Very High > or = 500 mg/dL WBC (Bld) [#/Vol] 5.4 10*3/uL 4.4-11.0 [facility] Blood erythrocytes count (nu mber/volume)Ordered By: Billy Loja on 09-12-2022 RBC (Bld) [#/Vol] 3.89 10*6/uL 4.2-5.4 [facility] Blood hemoglobin measurement (mass/volume)Ordered By: Billy Loja on 09-12-2022 Hemoglobin (Bld) [Mass/Vol] 10.9 g/dL 12.0-15.0 [facility] Blood platelet mean volumeOr dered By: Billy Loja on 09-12-2022 Platelet mean volume (Bld) [Entitic vol] 11.7 fL 6.2-12.0 [facility] Determination of erythrocyte mean corpuscular volume (MCV)Ordered By: Billy Loja on 09-12-2022 MCV (RBC) [Entitic vol] 90.0 fL 81-99 [facility] Hematocrit Auto (Bld) [Volum e fraction]Ordered By: Billy Loja on 09-12-2022 Hematocrit (Bld) [Volume fraction] 35.0 % 37-47 [facility] - Chemistry and C hemistry - challengeOrdered By: Billy Loja on 09-12-2022 CO2 [Moles/Vol] 26.0 mmol/L 21.0-32.0 [facility] Urea nitrogen/Creatinine [Mass ratio] 26.4 mg/mg 10-20 [facility] - Hematology and Cell countsOrdered By: Billy Loja on 09-12-2022 Erythrocyte distribution width (RBC) [Entitic vol] 46.3 fL 35.1-43.9 [facility] Erythrocyte distribution width (RBC) [Ratio] 14.0 % 11.6-14.6 [facility] MCH (RBC) [Entitic mass] 28.0 pg 27.0-32.0 [facility] MCHC Auto (RBC) [Mass/Vol]Or dered By: Billy Loja on 09-12-2022 MCHC (RBC) [Mass/Vol] 31.1 g/dL 32-36 [facility] No Panel InformationOrdered By: Billy Loja on 09-12-2022 Estimated GFR (MDRD) Amer 140 mL/min >60 [facility] Comment on above: GFR Calc Estimated GFR (MDRD) Non-Af Amer 116 mL/min >60 [facility] Comment on above: Non- GFR Calc Platelets bldOrdered By: Primo Loja on 09-12-2022 Platelets (Bld) [#/Vol] 224 10*3/uL 150-450 [facility] Serum or plasma calcium merlyn urement (mass/volume)Ordered By: Billy Loja on 09-12-2022 Calcium [Mass/Vol] 8.9 mg/dL 8.5-10.1 [facility] Serum or plasma cholesterol in HDL measurement (mass/volume)Ordered By: Billy Loja on 09-12-2022 Cholesterol in HDL [Mass/Vol] 66 mg/dL >40 [facility] Comment on above: The drugs N-Acetylcy steine and Metamizole may falsely depress this assay. Reference Range HDL <40 mg/dL Low HDL Cholesterol HDL >or= 60 mg/dL High HDL Cholesterol Serum or plasma cholesterol in VLDL measurement (mass/volume)Ordered By: Billy Loja on 09-12-2022 Cholesterol in VLDL [Mass/Vol] 11 mg/dL 5-40 [facility] Serum or plasma creatinine m easurement (mass/volume)Ordered By: Billy Loja on 09-12-2022 Creatinine [Mass/Vol] 0.53 mg/dL 0.55-1.02 [facility] Comment on above: The validity of the calculated GFR & GFRAA in patients over 70 years has not been determined. Clinical correlation is essential. Serum or plasma low density lipoprotein (LDL) cholesterol measurement (mass/volume)Ordered By: Billy Loja on 09-12-2022 Cholesterol in LDL [Mass/Vol] 35 mg/dL 0-130 [facility] Serum or plasma urea nitroge n measurement (mass/volume)Ordered By: Billy Loja on 09-12-2022 Urea nitrogen [Mass/Vol] 14 mg/dL 7-18 [facility] Thin prep Papanicolaou smear with manual screeningOrdered By: Billy Loja on 09-12-2022 Thin prep Papanicolaou smear with manual screening 7 5-15 [facility] Basophil percentageOrdered B y: Arnulfo English on 08-15-2022 Chloride [Moles/Vol] 106 mmol/L 98-107 [facility] Glucose [Mass/Vol] 75 mg/dL 74-106 [facility] Potassium [Moles/Vol] 3.7 mmol/L 3.5-5.1 [facility] Sodium [Moles/Vol] 138 mmol/L 136-145 [facility] WBC (Bld) [#/Vol] 5.4 10*3/uL 4.4-11.0 [facility] Blood erythrocytes count (nu mber/volume)Ordered By: Arnulfo English on 08-15-2022 RBC (Bld) [#/Vol] 4.11 10*6/uL 4.2-5.4 [facility] Blood hemoglobin measurement (mass/volume)Ordered By: Arnulfo English on 08-15-2022 Hemoglobin (Bld) [Mass/Vol] 11.6 g/dL 12.0-15.0 [facility] Blood platelet mean volumeOr dered By: Arnulfo English on 08-15-2022 Platelet mean volume (Bld) [Entitic vol] 12.0 fL 6.2-12.0 [facility] Determination of erythrocyte mean corpuscular volume (MCV)Ordered By: Arnulfo English on 08-15-2022 MCV (RBC) [Entitic vol] 90.3 fL 81-99 [facility] Hematocrit Auto (Bld) [Volum e fraction]Ordered By: Arnulfo English on 08-15-2022 Hematocrit (Bld) [Volume fraction] 37.1 % 37-47 [facility] - Chemistry and C hemistry - challengeOrdered By: Arnulfo English on 08-15-2022 CO2 [Moles/Vol] 24.0 mmol/L 21.0-32.0 [facility] Urea nitrogen/Creatinine [Mass ratio] 33.8 mg/mg 10-20 [facility] - Hematology and Cell countsOrdered By: Arnulfo English on 08-15-2022 Erythrocyte distribution width (RBC) [Entitic vol] 46.5 fL 35.1-43.9 [facility] Erythrocyte distribution width (RBC) [Ratio] 14.0 % 11.6-14.6 [facility] MCH (RBC) [Entitic mass] 28.2 pg 27.0-32.0 [facility] MCHC Auto (RBC) [Mass/Vol]Or dered By: Arnulfo English on 08-15-2022 MCHC (RBC) [Mass/Vol] 31.3 g/dL 32-36 [facility] No Panel InformationOrdered By: Arnulfo English on 08-15-2022 Estimated GFR (MDRD) Amer 160 mL/min >60 [facility] Comment on above: GFR Calc Estimated GFR (MDRD) Non-Af Amer 132 mL/min >60 [facility] Comment on above: Non- GFR Calc Platelets bldOrdered By: Kota English on 08-15-2022 Platelets (Bld) [#/Vol] 218 10*3/uL 150-450 [facility] Serum or plasma calcium merlyn urement (mass/volume)Ordered By: Arnulfo English on 08-15-2022 Calcium [Mass/Vol] 9.2 mg/dL 8.5-10.1 [facility] Serum or plasma creatinine m easurement (mass/volume)Ordered By: Arnulfo English on 08-15-2022 Creatinine [Mass/Vol] 0.47 mg/dL 0.55-1.02 [facility] Comment on above: The validity of the calculated GFR & GFRAA in patients over 70 years has not been determined. Clinical correlation is essential. Serum or plasma urea nitroge n measurement (mass/volume)Ordered By: Arnulfo English on 08-15-2022 Urea nitrogen [Mass/Vol] 16 mg/dL 7-18 [facility] Thin prep Papanicolaou smear with manual screeningOrdered By: Arnulfo English on 08-15-2022 Thin prep Papanicolaou smear with manual screening 8 5-15 [facility] Basophil percentageOrdered B y: Billy Loja on 07-11-2022 Chloride [Moles/Vol] 105 mmol/L 98-107 [facility] Glucose [Mass/Vol] 82 mg/dL 74-106 [facility] Potassium [Moles/Vol] 4.2 mmol/L 3.5-5.1 [facility] Sodium [Moles/Vol] 140 mmol/L 136-145 [facility] WBC (Bld) [#/Vol] 5.3 10*3/uL 4.4-11.0 [facility] Blood erythrocytes count (nu mber/volume)Ordered By: Billy Loja on 07-11-2022 RBC (Bld) [#/Vol] 4.10 10*6/uL 4.2-5.4 [facility] Blood hemoglobin measurement (mass/volume)Ordered By: Billy Loja on 07-11-2022 Hemoglobin (Bld) [Mass/Vol] 11.2 g/dL 12.0-15.0 [facility] Blood platelet mean volumeOr dered By: Billy Loja on 07-11-2022 Platelet mean volume (Bld) [Entitic vol] 12.1 fL 6.2-12.0 [facility] Determination of erythrocyte mean corpuscular volume (MCV)Ordered By: Billy Loja on 07-11-2022 MCV (RBC) [Entitic vol] 89.8 fL 81-99 [facility] Hematocrit Auto (Bld) [Volum e fraction]Ordered By: Billy Loja on 07-11-2022 Hematocrit (Bld) [Volume fraction] 36.8 % 37-47 [facility] - Chemistry and C hemistry - challengeOrdered By: Billy Loja on 07-11-2022 CO2 [Moles/Vol] 28.0 mmol/L 21.0-32.0 [facility] Urea nitrogen/Creatinine [Mass ratio] 31.6 mg/mg 10-20 [facility] - Hematology and Cell countsOrdered By: Billy Loja on 07-11-2022 Erythrocyte distribution width (RBC) [Entitic vol] 46.3 fL 35.1-43.9 [facility] Erythrocyte distribution width (RBC) [Ratio] 14.0 % 11.6-14.6 [facility] MCH (RBC) [Entitic mass] 27.3 pg 27.0-32.0 [facility] MCHC Auto (RBC) [Mass/Vol]Or dered By: Billy Loja on 07-11-2022 MCHC (RBC) [Mass/Vol] 30.4 g/dL 32-36 [facility] No Panel InformationOrdered By: Billy Loja on 07-11-2022 Estimated GFR (MDRD) Amer 138 mL/min >60 [facility] Comment on above: GFR Calc Estimated GFR (MDRD) Non-Af Amer 114 mL/min >60 [facility] Comment on above: Non- GFR Calc Platelets bldOrdered By: Primo Loja on 07-11-2022 Platelets (Bld) [#/Vol] 238 10*3/uL 150-450 [facility] Serum or plasma calcium merlyn urement (mass/volume)Ordered By: Billy Loja on 07-11-2022 Calcium [Mass/Vol] 8.8 mg/dL 8.5-10.1 [facility] Serum or plasma creatinine m easurement (mass/volume)Ordered By: Billy Loja on 07-11-2022 Creatinine [Mass/Vol] 0.54 mg/dL 0.55-1.02 [facility] Comment on above: The validity of the calculated GFR & GFRAA in patients over 70 years has not been determined. Clinical correlation is essential. Serum or plasma urea nitroge n measurement (mass/volume)Ordered By: Billy Loja on 07-11-2022 Urea nitrogen [Mass/Vol] 17 mg/dL 7-18 [facility] Thin prep Papanicolaou smear with manual screeningOrdered By: Billy Loja on 07-11-2022 Thin prep Papanicolaou smear with manual screening 7 5-15 [facility] Basophil percentageOrdered B y: Billy Loja on 06-13-2022 Chloride [Moles/Vol] 109 mmol/L 98-107 [facility] Glucose [Mass/Vol] 83 mg/dL 74-106 [facility] Potassium [Moles/Vol] 3.9 mmol/L 3.5-5.1 [facility] Sodium [Moles/Vol] 141 mmol/L 136-145 [facility] WBC (Bld) [#/Vol] 5.6 10*3/uL 4.4-11.0 [facility] Blood erythrocytes count (nu mber/volume)Ordered By: Billy Loja on 06-13-2022 RBC (Bld) [#/Vol] 4.07 10*6/uL 4.2-5.4 [facility] Blood hemoglobin measurement (mass/volume)Ordered By: Billy Loja on 06-13-2022 Hemoglobin (Bld) [Mass/Vol] 11.1 g/dL 12.0-15.0 [facility] Blood platelet mean volumeOr dered By: Billy Loja on 06-13-2022 Platelet mean volume (Bld) [Entitic vol] 11.9 fL 6.2-12.0 [facility] Determination of erythrocyte mean corpuscular volume (MCV)Ordered By: Billy Loja on 06-13-2022 MCV (RBC) [Entitic vol] 89.4 fL 81-99 [facility] Hematocrit Auto (Bld) [Volum e fraction]Ordered By: Billy Loja on 06-13-2022 Hematocrit (Bld) [Volume fraction] 36.4 % 37-47 [facility] - Chemistry and C hemistry - challengeOrdered By: Billy Loja on 06-13-2022 CO2 [Moles/Vol] 28.0 mmol/L 21.0-32.0 [facility] Urea nitrogen/Creatinine [Mass ratio] 36.3 mg/mg 10-20 [facility] - Hematology and Cell countsOrdered By: Billy Loja on 06-13-2022 Erythrocyte distribution width (RBC) [Entitic vol] 45.2 fL 35.1-43.9 [facility] Erythrocyte distribution width (RBC) [Ratio] 13.8 % 11.6-14.6 [facility] MCH (RBC) [Entitic mass] 27.3 pg 27.0-32.0 [facility] MCHC Auto (RBC) [Mass/Vol]Or dered By: Billy Loja on 06-13-2022 MCHC (RBC) [Mass/Vol] 30.5 g/dL 32-36 [facility] No Panel InformationOrdered By: Billy Loja on 06-13-2022 Estimated GFR (MDRD) Amer 143 mL/min >60 [facility] Comment on above: GFR Calc Estimated GFR (MDRD) Non-Af Amer 118 mL/min >60 [facility] Comment on above: Non- GFR Calc Platelets bldOrdered By: Primo Loja on 06-13-2022 Platelets (Bld) [#/Vol] 233 10*3/uL 150-450 [facility] Serum or plasma calcium merlyn urement (mass/volume)Ordered By: Billy Loja on 06-13-2022 Calcium [Mass/Vol] 9.2 mg/dL 8.5-10.1 [facility] Serum or plasma creatinine m easurement (mass/volume)Ordered By: Billy Loja on 06-13-2022 Creatinine [Mass/Vol] 0.52 mg/dL 0.55-1.02 [facility] Comment on above: The validity of the calculated GFR & GFRAA in patients over 70 years has not been determined. Clinical correlation is essential. Serum or plasma urea nitroge n measurement (mass/volume)Ordered By: Billy Loja on 06-13-2022 Urea nitrogen [Mass/Vol] 19 mg/dL 7-18 [facility] Thin prep Papanicolaou smear with manual screeningOrdered By: Billy Loja on 06-13-2022 Thin prep Papanicolaou smear with manual screening 4 5-15 [facility] Basophil percentageon 2021 Chloride [Moles/Vol] 105 mmol/L 98-107 [facility] Work Phone: Glucose [Mass/Vol] 90 mg/dL 74-106 [facility] Work Phone: Potassium [Moles/Vol] 4.0 mmol/L 3.5-5.1 [facility] Work Phone: [phone] Sodium [Moles/Vol] 140 mmol/L 136-145 [facility] Work Phone: [phone] WBC (Bld) [#/Vol] 5.8 10*3/uL 4.4-11.0 [facility] Work Phone: [phone] Blood erythrocytes count (nu mber/volume)on 05-16-2022 RBC (Bld) [#/Vol] 4.15 10*6/uL 4.2-5.4 [facility]: Blood hemoglobin measurement (mass/volume)on 05-16-2022 Hemoglobin (Bld) [Mass/Vol] 11.8 g/dL 12.0-15.0 [facility] Work Phone: [phone] Blood platelet mean volumeon 05-16-2022 Platelet mean volume (Bld) [Entitic vol] 11.8 fL 6.2-12.0 [facility] Work Phone: [phone] Determination of erythrocyte mean corpuscular volume (MCV)on 05-16-2022 MCV (RBC) [Entitic vol] 90.1 fL 81-99 [facility] Work Phone: [phone] Hematocrit Auto (Bld) [Volum e fraction]on 05-16-2022 Hematocrit (Bld) [Volume fraction] 37.4 % 37-47 [facility] Work Phone: [phone] Laboratory - Chemistry and C hemistry - challengeon 05-16-2022 CO2 [Moles/Vol] 27.0 mmol/L 21.0-32.0 [facility] Work Phone: [phone] Urea nitrogen/Creatinine [Mass ratio] 28.1 mg/mg 10-20 [facility] Work Phone: [phone] Laboratory - Hematology and Cell countson 05-16-2022 Erythrocyte distribution width (RBC) [Entitic vol] 47.0 fL 35.1-43.9 [facility] Work Phone: [phone] Erythrocyte distribution width (RBC) [Ratio] 14.2 % 11.6-14.6 [facility] Work Phone: MCH (RBC) [Entitic mass] 28.4 pg 27.0-32.0 [facility] Work Phone: MCHC Auto (RBC) [Mass/Vol]on 05-16-2022 MCHC (RBC) [Mass/Vol] 31.6 g/dL 32-36 [facility] Work Phone: No Panel Informationon 05-16 Estimated GFR (MDRD) Amer 130 mL/min >60 [facility] Work Phone: Comment on above: GFR Calc Estimated GFR (MDRD) Non-Af Amer 107 mL/min >60 [facility] Work Phone: Comment on above: Non- GFR Calc Platelets bldon 05-16-2022 Platelets (Bld) [#/Vol] 257 10*3/uL 150-450 [facility] Work Phone: Serum or plasma calcium merlyn urement (mass/volume)on 05-16-2022 Calcium [Mass/Vol] 9.3 mg/dL 8.5-10.1 [facility] Work Phone: Serum or plasma creatinine m easurement (mass/volume)on 05-16-2022 Creatinine [Mass/Vol] 0.57 mg/dL 0.55-1.02 [facility] Work Phone: Comment on above: The validity of the calculated GFR & GFRAA in patients over 70 years has not been determined. Clinical correlation is essential. Serum or plasma urea nitroge n measurement (mass/volume)on 05-16-2022 Urea nitrogen [Mass/Vol] 16 mg/dL 7-18 [facility] Work Phone: Thin prep Papanicolaou smear with manual screeningon 05-16-2022 Thin prep Papanicolaou smear with manual screening 8 5-15 [facility] Work Phone: [phone] CNOVon 05-15-2022 CNOV Office Visit (NECEED ) JUNIE WICK ([id number]) 1935 F Date Time Provider Department 05/15/22 2:05 PM KATHY BROWN During your visit today, we recorded the following information about you: Pulse Blood pressure Weight 74/minute 108/54 55.6 kg Kathy Brown, SURGICAL ASSISTANT.BUSINESS OBJECTS REPORT DEVELOPER 05/17/2022 9:25 AM Signed [facility] Initial Visit [facility] Junie Wick is a 86 year old female who presents for a neurological evaluation. Previous patient of Dr. Hanks in [place] Previous visit with Dr. 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 May have been a transient hypertensive spike at the time. Recovered well with no other issues. Continue with aspirin monotherapy, which will likely be retirement. Continue to keep close tab on BP [...] Procedure Laterality Date COLONOSCOP W/ OR W/O [facility] SPEC 06/24/2001 sigmoidoscopy PAST SURGICAL HISTORY [...] alternating m (more content not included)... Normal [facility] Basophil percentageon 2021 Chloride [Moles/Vol] 109 mmol/L 98-107 [facility] Work Phone: [phone] Glucose [Mass/Vol] 82 mg/dL 74-106 [facility] Work Phone: [phone] Potassium [Moles/Vol] 4.2 mmol/L 3.5-5.1 [facility] Work Phone: [phone] Sodium [Moles/Vol] 141 mmol/L 136-145 [facility] Work Phone: [phone] WBC (Bld) [#/Vol] 5.3 10*3/uL 4.4-11.0 [facility] Work Phone: [phone] Blood erythrocytes count (nu mber/volume)on 04-11-2022 RBC (Bld) [#/Vol] 4.04 10*6/uL 4.2-5.4 [facility] Work Phone: [phone] Blood hemoglobin measurement (mass/volume)on 04-11-2022 Hemoglobin (Bld) [Mass/Vol] 11.3 g/dL 12.0-15.0 [facility] Work Phone: [phone] Blood platelet mean volumeon 04-11-2022 Platelet mean volume (Bld) [Entitic vol] 11.6 fL 6.2-12.0 [facility] Work Phone: [phone] Determination of erythrocyte mean corpuscular volume (MCV)on 04-11-2022 MCV (RBC) [Entitic vol] 88.9 fL 81-99 [facility] Work Phone: [phone] Hematocrit Auto (Bld) [Volum e fraction]on 04-11-2022 Hematocrit (Bld) [Volume fraction] 35.9 % 37-47 [facility] Work Phone: Laboratory - Chemistry and C hemistry - challengeon 04-11-2022 CO2 [Moles/Vol] 29.0 mmol/L 21.0-32.0 [facility] Work Phone: Urea nitrogen/Creatinine [Mass ratio] 24.2 mg/mg 10-20 [facility] Work Phone: [phone] Laboratory - Hematology and Cell countson 04-11-2022 Erythrocyte distribution width (RBC) [Entitic vol] 47.4 fL 35.1-43.9 [facility] Work Phone: Erythrocyte distribution width (RBC) [Ratio] 14.5 % 11.6-14.6 [facility] Work Phone: MCH (RBC) [Entitic mass] 28.0 pg 27.0-32.0 [facility] Work Phone: [phone] MCHC Auto (RBC) [Mass/Vol]on 04-11-2022 MCHC (RBC) [Mass/Vol] 31.5 g/dL 32-36 [facility] Work Phone: No Panel Informationon 04-11 Estimated GFR (MDRD) Amer 127 mL/min >60 [facility] Work Phone: Comment on above: GFR Calc Estimated GFR (MDRD) Non-Af Amer 105 mL/min >60 [facility] Work Phone: Comment on above: Non- GFR Calc Platelets bldon 04-11-2022 Platelets (Bld) [#/Vol] 237 10*3/uL 150-450 [facility] Work Phone: [phone] Serum or plasma calcium merlyn urement (mass/volume)on 04-11-2022 Calcium [Mass/Vol] 9.2 mg/dL 8.5-10.1 [facility] Work Phone: [phone] Serum or plasma creatinine m easurement (mass/volume)on 04-11-2022 Creatinine [Mass/Vol] 0.58 mg/dL 0.55-1.02 [facility] Work Phone: Comment on above: The validity of the calculated GFR & GFRAA in patients over 70 years has not been determined. Clinical correlation is essential. Serum or plasma urea nitroge n measurement (mass/volume)on 04-11-2022 Urea nitrogen [Mass/Vol] 14 mg/dL 7-18 [facility] Work Phone: [phone] Thin prep Papanicolaou smear with manual screeningon 04-11-2022 Thin prep Papanicolaou smear with manual screening 3 5-15 [facility] Work Phone: Basophil percentageon 2021 Chloride [Moles/Vol] 108 mmol/L 98-107 [facility] Work Phone: [phone] Glucose [Mass/Vol] 82 mg/dL 74-106 [facility] Work Phone: [phone] Potassium [Moles/Vol] 4.0 mmol/L 3.5-5.1 [facility] Work Phone: [phone] Sodium [Moles/Vol] 140 mmol/L 136-145 [facility] Work Phone: [phone] WBC (Bld) [#/Vol] 5.1 10*3/uL 4.4-11.0 [facility] Work Phone: [phone] Blood erythrocytes count (nu mber/volume)on 03-14-2022 RBC (Bld) [#/Vol] 4.01 10*6/uL 4.2-5.4 [facility] Work Phone: [phone] Blood hemoglobin measurement (mass/volume)on 03-14-2022 Hemoglobin (Bld) [Mass/Vol] 11.0 g/dL 12.0-15.0 [facility] Work Phone: [phone] Blood platelet mean volumeon 03-14-2022 Platelet mean volume (Bld) [Entitic vol] 11.6 fL 6.2-12.0 [facility] Work Phone: [phone] Determination of erythrocyte mean corpuscular volume (MCV)on 03-14-2022 MCV (RBC) [Entitic vol] 89.3 fL 81-99 [facility] Work Phone: [phone] Hematocrit Auto (Bld) [Volum e fraction]on 03-14-2022 Hematocrit (Bld) [Volume fraction] 35.8 % 37-47 [facility] Work Phone: Laboratory - Chemistry and C hemistry - challengeon 03-14-2022 CO2 [Moles/Vol] 26.0 mmol/L 21.0-32.0 [facility] Work Phone: [phone] Urea nitrogen/Creatinine [Mass ratio] 31.0 mg/mg 10-20 [facility] Work Phone: [phone] Laboratory - Hematology and Cell countson 03-14-2022 Erythrocyte distribution width (RBC) [Entitic vol] 46.7 fL 35.1-43.9 [facility] Work Phone: [phone] Erythrocyte distribution width (RBC) [Ratio] 14.5 % 11.6-14.6 [facility] Work Phone: [phone] MCH (RBC) [Entitic mass] 27.4 pg 27.0-32.0 [facility] Work Phone: [phone] MCHC Auto (RBC) [Mass/Vol]on 03-14-2022 MCHC (RBC) [Mass/Vol] 30.7 g/dL 32-36 [facility] Work Phone: No Panel Informationon 03-14 Estimated GFR (MDRD) Amer 119 mL/min >60 [facility] Work Phone: [phone] Comment on above: GFR Calc Estimated GFR (MDRD) Non-Af Amer 98 mL/min >60 [facility] Work Phone: Comment on above: Non- GFR Calc Platelets bldon 03-14-2022 Platelets (Bld) [#/Vol] 235 10*3/uL 150-450 [facility] Work Phone: Serum or plasma calcium merlyn urement (mass/volume)on 03-14-2022 Calcium [Mass/Vol] 9.4 mg/dL 8.5-10.1 [facility] Work Phone: Serum or plasma creatinine m easurement (mass/volume)on 03-14-2022 Creatinine [Mass/Vol] 0.61 mg/dL 0.55-1.02 [facility] Work Phone: Comment on above: The validity of the calculated GFR & GFRAA in patients over 70 years has not been determined. Clinical correlation is essential. Serum or plasma urea nitroge n measurement (mass/volume)on 03-14-2022 Urea nitrogen [Mass/Vol] 19 mg/dL 7-18 [facility] Work Phone: [phone] Thin prep Papanicolaou smear with manual screeningon 03-14-2022 Thin prep Papanicolaou smear with manual screening 6 5-15 [facility] Work Phone: [phone] No Panel Informationon 03-08 Thyroid Stimulating Hormone (TSH) 0.53 uIU/mL 0.358-3.74 [facility] Work Phone: Basophil percentageon 2021 Chloride [Moles/Vol] 108 mmol/L 98-107 [facility] Work Phone: Glucose [Mass/Vol] 86 mg/dL 74-106 [facility] Work Phone: [phone] Potassium [Moles/Vol] 4.1 mmol/L 3.5-5.1 [facility] Work Phone: [phone] Sodium [Moles/Vol] 141 mmol/L 136-145 [facility] Work Phone: [phone] WBC (Bld) [#/Vol] 5.3 10*3/uL 4.4-11.0 [facility] Work Phone: [phone] Blood erythrocytes count (nu mber/volume)on 02-14-2022 RBC (Bld) [#/Vol] 4.18 10*6/uL 4.2-5.4 [facility] Work Phone: [phone] Blood hemoglobin measurement (mass/volume)on 02-14-2022 Hemoglobin (Bld) [Mass/Vol] 11.4 g/dL 12.0-15.0 [facility] Work Phone: [phone] Blood platelet mean volumeon 02-14-2022 Platelet mean volume (Bld) [Entitic vol] 11.3 fL 6.2-12.0 [facility] Work Phone: [phone] Determination of erythrocyte mean corpuscular volume (MCV)on 02-14-2022 MCV (RBC) [Entitic vol] 87.1 fL 81-99 [facility] Work Phone: [phone] Hematocrit Auto (Bld) [Volum e fraction]on 02-14-2022 Hematocrit (Bld) [Volume fraction] 36.4 % 37-47 [facility] Work Phone: [phone] Laboratory - Chemistry and C hemistry - challengeon 02-14-2022 CO2 [Moles/Vol] 27.0 mmol/L 21.0-32.0 [facility] Work Phone: [phone] Urea nitrogen/Creatinine [Mass ratio] 25.0 mg/mg 10-20 [facility] Work Phone: [phone] Laboratory - Hematology and Cell countson 02-14-2022 Erythrocyte distribution width (RBC) [Entitic vol] 46.2 fL 35.1-43.9 [facility] Work Phone: [phone] Erythrocyte distribution width (RBC) [Ratio] 14.4 % 11.6-14.6 [facility] Work Phone: [phone] MCH (RBC) [Entitic mass] 27.3 pg 27.0-32.0 [facility] Work Phone: [phone] MCHC Auto (RBC) [Mass/Vol]on 02-14-2022 MCHC (RBC) [Mass/Vol] 31.3 g/dL 32-36 [facility] Work Phone: [phone] No Panel Informationon 02-14 Estimated GFR (MDRD) Amer 143 mL/min >60 [facility] Work Phone: [phone] Comment on above: GFR Calc Estimated GFR (MDRD) Non-Af Amer 119 mL/min >60 [facility] Work Phone: Comment on above: Non- GFR Calc Platelets bldon 02-14-2022 Platelets (Bld) [#/Vol] 240 10*3/uL 150-450 [facility] Work Phone: Serum or plasma calcium merlyn urement (mass/volume)on 02-14-2022 Calcium [Mass/Vol] 9.0 mg/dL 8.5-10.1 [facility] Work Phone: Serum or plasma creatinine m easurement (mass/volume)on 02-14-2022 Creatinine [Mass/Vol] 0.52 mg/dL 0.55-1.02 [facility] Work Phone: Comment on above: The validity of the calculated GFR & GFRAA in patients over 70 years has not been determined. Clinical correlation is essential. Serum or plasma urea nitroge n measurement (mass/volume)on 02-14-2022 Urea nitrogen [Mass/Vol] 13 mg/dL 7-18 [facility] Work Phone: Thin prep Papanicolaou smear with manual screeningon 02-14-2022 Thin prep Papanicolaou smear with manual screening 6 5-15 [facility] Work Phone: Basophil percentageon 2021 Chloride [Moles/Vol] 108 mmol/L 98-107 [facility] Work Phone: Glucose [Mass/Vol] 86 mg/dL 74-106 [facility] Work Phone: Potassium [Moles/Vol] 3.8 mmol/L 3.5-5.1 [facility] Work Phone: Sodium [Moles/Vol] 140 mmol/L 136-145 [facility] Work Phone: WBC (Bld) [#/Vol] 5.4 10*3/uL 4.4-11.0 [facility] Work Phone: Blood erythrocytes count (nu mber/volume)on 01-10-2022 RBC (Bld) [#/Vol] 4.02 10*6/uL 4.2-5.4 [facility] Work Phone: [phone] Blood hemoglobin measurement (mass/volume)on 01-10-2022 Hemoglobin (Bld) [Mass/Vol] 11.0 g/dL 12.0-15.0 [facility] Work Phone: [phone] Blood platelet mean volumeon 01-10-2022 Platelet mean volume (Bld) [Entitic vol] 11.8 fL 6.2-12.0 [facility] Work Phone: [phone] Determination of erythrocyte mean corpuscular volume (MCV)on 01-10-2022 MCV (RBC) [Entitic vol] 86.8 fL 81-99 [facility] Work Phone: [phone] Hematocrit Auto (Bld) [Volum e fraction]on 01-10-2022 Hematocrit (Bld) [Volume fraction] 34.9 % 37-47 [facility] Work Phone: [phone] Laboratory - Chemistry and C hemistry - challengeon 01-10-2022 CO2 [Moles/Vol] 26.0 mmol/L 21.0-32.0 [facility] Work Phone: Free T4 [Mass/Vol] 1.69 ng/dL 0.76-1.46 [facility] Work Phone: [phone] [Mass/Vol] 12.9 ug/dL 4.8-13.9 [facility] Work Phone: [phone] Urea nitrogen/Creatinine [Mass ratio] 27.3 mg/mg 10-20 [facility] Work Phone: [phone] Laboratory - Hematology and Cell countson 01-10-2022 Erythrocyte distribution width (RBC) [Entitic vol] 42.9 fL 35.1-43.9 [facility] Work Phone: [phone] Erythrocyte distribution width (RBC) [Ratio] 13.4 % 11.6-14.6 [facility] Work Phone: [phone] MCH (RBC) [Entitic mass] 27.4 pg 27.0-32.0 [facility] Work Phone: MCHC Auto (RBC) [Mass/Vol]on 01-10-2022 MCHC (RBC) [Mass/Vol] 31.5 g/dL 32-36 [facility] Work Phone: No Panel Informationon 01-10 Estimated GFR (MDRD) Amer 146 mL/min >60 [facility] Work Phone: Comment on above: GFR Calc Estimated GFR (MDRD) Non-Af Amer 121 mL/min >60 [facility] Work Phone: Comment on above: Non- GFR Calc Thyroid Stimulating Hormone (TSH) 0.03 uIU/mL 0.358-3.74 [facility] Work Phone: Platelets bldon 01-10-2022 Platelets (Bld) [#/Vol] 231 10*3/uL 150-450 [facility] Work Phone: Serum or plasma calcium merlyn urement (mass/volume)on 01-10-2022 Calcium [Mass/Vol] 9.1 mg/dL 8.5-10.1 [facility] Work Phone: Serum or plasma creatinine m easurement (mass/volume)on 01-10-2022 Creatinine [Mass/Vol] 0.51 mg/dL 0.55-1.02 [facility] Work Phone: Comment on above: The validity of the calculated GFR & GFRAA in patients over 70 years has not been determined. Clinical correlation is essential. Serum or plasma urea nitroge n measurement (mass/volume)on 01-10-2022 Urea nitrogen [Mass/Vol] 14 mg/dL 7-18 [facility] Work Phone: [phone] Thin prep Papanicolaou smear with manual screeningon 01-10-2022 Thin prep Papanicolaou smear with manual screening 6 5-15 [facility] Work Phone: [phone] Basophil percentageon 2021 Chloride [Moles/Vol] 109 mmol/L 98-107 [facility] Work Phone: [phone] Glucose [Mass/Vol] 85 mg/dL 74-106 [facility] Work Phone: [phone] Potassium [Moles/Vol] 4.0 mmol/L 3.5-5.1 [facility] Work Phone: [phone] Sodium [Moles/Vol] 141 mmol/L 136-145 [facility] Work Phone: [phone] WBC (Bld) [#/Vol] 5.3 10*3/uL 4.4-11.0 [facility] Work Phone: [phone] Blood erythrocytes count (nu mber/volume)on 12-13-2021 RBC (Bld) [#/Vol] 4.01 10*6/uL 4.2-5.4 [facility] Work Phone: [phone] Blood hemoglobin measurement (mass/volume)on 12-13-2021 Hemoglobin (Bld) [Mass/Vol] 11.0 g/dL 12.0-15.0 [facility] Work Phone: [phone] Blood platelet mean volumeon 12-13-2021 Platelet mean volume (Bld) [Entitic vol] 11.5 fL 6.2-12.0 [facility] Work Phone: [phone] Determination of erythrocyte mean corpuscular volume (MCV)on 12-13-2021 MCV (RBC) [Entitic vol] 88.8 fL 81-99 [facility] Work Phone: [phone] Hematocrit Auto (Bld) [Volum e fraction]on 12-13-2021 Hematocrit (Bld) [Volume fraction] 35.6 % 37-47 [facility] Work Phone: [phone] Laboratory - Chemistry and C hemistry - challengeon 12-13-2021 CO2 [Moles/Vol] 27.0 mmol/L 21.0-32.0 [facility] Work Phone: [phone] Urea nitrogen/Creatinine [Mass ratio] 22.0 mg/mg 10-20 [facility] Work Phone: [phone] Laboratory - Hematology and Cell countson 12-13-2021 Erythrocyte distribution width (RBC) [Entitic vol] 43.9 fL 35.1-43.9 [facility] Work Phone: Erythrocyte distribution width (RBC) [Ratio] 13.4 % 11.6-14.6 [facility] Work Phone: MCH (RBC) [Entitic mass] 27.4 pg 27.0-32.0 [facility] Work Phone: MCHC Auto (RBC) [Mass/Vol]on 12-13-2021 MCHC (RBC) [Mass/Vol] 30.9 g/dL 32-36 [facility] Work Phone: No Panel Informationon 12-13 Estimated GFR (MDRD) Amer 124 mL/min >60 [facility] Work Phone: Comment on above: GFR Calc Estimated GFR (MDRD) Non-Af Amer 103 mL/min >60 [facility] Work Phone: Comment on above: Non- GFR Calc Platelets bldon 12-13-2021 Platelets (Bld) [#/Vol] 235 10*3/uL 150-450 [facility] Work Phone: Serum or plasma calcium merlyn urement (mass/volume)on 12-13-2021 Calcium [Mass/Vol] 9.1 mg/dL 8.5-10.1 [facility] Work Phone: Serum or plasma creatinine m easurement (mass/volume)on 12-13-2021 Creatinine [Mass/Vol] 0.59 mg/dL 0.55-1.02 [facility] Work Phone: Comment on above: The validity of the calculated GFR & GFRAA in patients over 70 years has not been determined. Clinical correlation is essential. Serum or plasma urea nitroge n measurement (mass/volume)on 12-13-2021 Urea nitrogen [Mass/Vol] 13 mg/dL 7-18 [facility] Work Phone: Thin prep Papanicolaou smear with manual screeningon 12-13-2021 Thin prep Papanicolaou smear with manual screening 5 5-15 [facility] Work Phone: Basophil percentageon 2021 Chloride [Moles/Vol] 110 mmol/L 98-107 [facility] Work Phone: [phone] Glucose [Mass/Vol] 89 mg/dL 74-106 [facility] Work Phone: [phone] Potassium [Moles/Vol] 4.1 mmol/L 3.5-5.1 [facility] Work Phone: [phone] Sodium [Moles/Vol] 140 mmol/L 136-145 [facility] Work Phone: [phone] WBC (Bld) [#/Vol] 4.4 10*3/uL 4.4-11.0 [facility] Work Phone: Blood erythrocytes count (nu mber/volume)on 11-08-2021 RBC (Bld) [#/Vol] 4.01 10*6/uL 4.2-5.4 [facility] Work Phone: Blood hemoglobin measurement (mass/volume)on 11-08-2021 Hemoglobin (Bld) [Mass/Vol] 11.0 g/dL 12.0-15.0 [facility] Work Phone: Blood platelet mean volumeon 11-08-2021 Platelet mean volume (Bld) [Entitic vol] 10.8 fL 6.2-12.0 [facility] Work Phone: [phone] Determination of erythrocyte mean corpuscular volume (MCV)on 11-08-2021 MCV (RBC) [Entitic vol] 88.3 fL 81-99 [facility] Work Phone: [phone] Hematocrit Auto (Bld) [Volum e fraction]on 11-08-2021 Hematocrit (Bld) [Volume fraction] 35.4 % 37-47 [facility] Work Phone: Laboratory - Chemistry and C hemistry - challengeon 11-08-2021 CO2 [Moles/Vol] 28.0 mmol/L 21.0-32.0 [facility] Work Phone: Urea nitrogen/Creatinine [Mass ratio] 20.4 mg/mg 10-20 [facility] Work Phone: [phone] Laboratory - Hematology and Cell countson 11-08-2021 Erythrocyte distribution width (RBC) [Entitic vol] 45.1 fL 35.1-43.9 [facility] Work Phone: [phone] Erythrocyte distribution width (RBC) [Ratio] 14.0 % 11.6-14.6 [facility] Work Phone: [phone] MCH (RBC) [Entitic mass] 27.4 pg 27.0-32.0 [facility] Work Phone: [phone] MCHC Auto (RBC) [Mass/Vol]on 11-08-2021 MCHC (RBC) [Mass/Vol] 31.1 g/dL 32-36 [facility] Work Phone: No Panel Informationon 11-08 Estimated GFR (MDRD) Amer 125 mL/min >60 [facility] Work Phone: Comment on above: GFR Calc Estimated GFR (MDRD) Non-Af Amer 103 mL/min >60 [facility] Work Phone: Comment on above: Non- GFR Calc Platelets bldon 11-08-2021 Platelets (Bld) [#/Vol] 244 10*3/uL 150-450 [facility] Work Phone: [phone] Serum or plasma calcium merlyn urement (mass/volume)on 11-08-2021 Calcium [Mass/Vol] 9.1 mg/dL 8.5-10.1 [facility] Work Phone: [phone] Serum or plasma creatinine m easurement (mass/volume)on 11-08-2021 Creatinine [Mass/Vol] 0.59 mg/dL 0.55-1.02 [facility] Work Phone: Comment on above: The validity of the calculated GFR & GFRAA in patients over 70 years has not been determined. Clinical correlation is essential. Serum or plasma urea nitroge n measurement (mass/volume)on 11-08-2021 Urea nitrogen [Mass/Vol] 12 mg/dL 7-18 [facility] Work Phone: Thin prep Papanicolaou smear with manual screeningon 11-08-2021 Thin prep Papanicolaou smear with manual screening 2 5-15 [facility] Work Phone: Basophil percentageon 2021 Chloride [Moles/Vol] 107 mmol/L 98-107 [facility] Work Phone: [phone] Glucose [Mass/Vol] 72 mg/dL 74-106 [facility] Work Phone: [phone] Potassium [Moles/Vol] 4.2 mmol/L 3.5-5.1 [facility] Work Phone: [phone] Sodium [Moles/Vol] 140 mmol/L 136-145 [facility] Work Phone: [phone] WBC (Bld) [#/Vol] 5.0 10*3/uL 4.4-11.0 [facility] Work Phone: Blood erythrocytes count (nu mber/volume)on 10-11-2021 RBC (Bld) [#/Vol] 3.73 10*6/uL 4.2-5.4 [facility] Work Phone: [phone] Blood hemoglobin measurement (mass/volume)on 10-11-2021 Hemoglobin (Bld) [Mass/Vol] 10.1 g/dL 12.0-15.0 [facility] Work Phone: [phone] Blood platelet mean volumeon 10-11-2021 Platelet mean volume (Bld) [Entitic vol] 11.5 fL 6.2-12.0 [facility] Work Phone: [phone] Determination of erythrocyte mean corpuscular volume (MCV)on 10-11-2021 MCV (RBC) [Entitic vol] 87.7 fL 81-99 [facility] Work Phone: [phone] Hematocrit Auto (Bld) [Volum e fraction]on 10-11-2021 Hematocrit (Bld) [Volume fraction] 32.7 % 37-47 [facility] Work Phone: Laboratory - Chemistry and C hemistry - challengeon 10-11-2021 CO2 [Moles/Vol] 25.0 mmol/L 21.0-32.0 [facility] Work Phone: Urea nitrogen/Creatinine [Mass ratio] 28.5 mg/mg 10-20 [facility] Work Phone: [phone] Laboratory - Hematology and Cell countson 10-11-2021 Erythrocyte distribution width (RBC) [Entitic vol] 46.8 fL 35.1-43.9 [facility] Work Phone: [phone] Erythrocyte distribution width (RBC) [Ratio] 14.6 % 11.6-14.6 [facility] Work Phone: [phone] MCH (RBC) [Entitic mass] 27.1 pg 27.0-32.0 [facility] Work Phone: MCHC Auto (RBC) [Mass/Vol]on 10-11-2021 MCHC (RBC) [Mass/Vol] 30.9 g/dL 32-36 [facility] Work Phone: No Panel Informationon 10-11 Estimated GFR (MDRD) Amer 142 mL/min >60 [facility] Work Phone: Comment on above: GFR Calc Estimated GFR (MDRD) Non-Af Amer 117 mL/min >60 [facility] Work Phone: Comment on above: Non- GFR Calc Platelets bldon 10-11-2021 Platelets (Bld) [#/Vol] 244 10*3/uL 150-450 [facility] Work Phone: Serum or plasma calcium merlyn urement (mass/volume)on 10-11-2021 Calcium [Mass/Vol] 8.9 mg/dL 8.5-10.1 [facility] Work Phone: [phone] Serum or plasma creatinine m easurement (mass/volume)on 10-11-2021 Creatinine [Mass/Vol] 0.53 mg/dL 0.55-1.02 [facility] Work Phone: [phone] Comment on above: The validity of the calculated GFR & GFRAA in patients over 70 years has not been determined. Clinical correlation is essential. Serum or plasma urea nitroge n measurement (mass/volume)on 10-11-2021 Urea nitrogen [Mass/Vol] 15 mg/dL 7-18 [facility] Work Phone: Thin prep Papanicolaou smear with manual screeningon 10-11-2021 Thin prep Papanicolaou smear with manual screening 8 5-15 [facility] Work Phone: Basophil percentageon 2021 Chloride [Moles/Vol] 106 mmol/L 98-107 [facility] Work Phone: [phone] Cholesterol [Mass/Vol] 104 mg/dL <200 [facility] Work Phone: [phone] Comment on above: <200 mg/dL Desirable 200-240 mg/dL Borderline >240 mg/dL High Risk Glucose [Mass/Vol] 84 mg/dL 74-106 [facility] Work Phone: [phone] Potassium [Moles/Vol] 3.9 mmol/L 3.5-5.1 [facility] Work Phone: [phone] Sodium [Moles/Vol] 138 mmol/L 136-145 [facility] Work Phone: [phone] Triglyceride [Mass/Vol] 70 mg/dL [facility] Work Phone: Comment on above: The drugs N-Acetylcy steine and Metamizole may falsely depress this assay.Serum Triglycerides Reference Interval Normal <150 mg/dL Borderline high 150 - 199 mg/dL High 200 - 499 mg/dL Very High > or = 500 mg/dL WBC (Bld) [#/Vol] 5.9 10*3/uL 4.4-11.0 [facility] Work Phone: [phone] Blood erythrocytes count (nu mber/volume)on 09-13-2021 RBC (Bld) [#/Vol] 3.83 10*6/uL 4.2-5.4 [facility] Work Phone: [phone] Blood hemoglobin measurement (mass/volume)on 09-13-2021 Hemoglobin (Bld) [Mass/Vol] 10.2 g/dL 12.0-15.0 [facility] Work Phone: [phone] Blood platelet mean volumeon 09-13-2021 Platelet mean volume (Bld) [Entitic vol] 10.9 fL 6.2-12.0 [facility] Work Phone: [phone] Determination of erythrocyte mean corpuscular volume (MCV)on 09-13-2021 MCV (RBC) [Entitic vol] 88.3 fL 81-99 [facility] Work Phone: [phone] Hematocrit Auto (Bld) [Volum e fraction]on 09-13-2021 Hematocrit (Bld) [Volume fraction] 33.8 % 37-47 [facility] Work Phone: [phone] Laboratory - Chemistry and C hemistry - challengeon 09-13-2021 CO2 [Moles/Vol] 27.0 mmol/L 21.0-32.0 [facility] Work Phone: [phone] Urea nitrogen/Creatinine [Mass ratio] 34.1 mg/mg 10-20 [facility] Work Phone: [phone] Laboratory - Hematology and Cell countson 09-13-2021 Erythrocyte distribution width (RBC) [Entitic vol] 44.5 fL 35.1-43.9 [facility] Work Phone: [phone] Erythrocyte distribution width (RBC) [Ratio] 13.6 % 11.6-14.6 [facility] Work Phone: [phone] MCH (RBC) [Entitic mass] 26.6 pg 27.0-32.0 [facility] Work Phone: [phone] MCHC Auto (RBC) [Mass/Vol]on 09-13-2021 MCHC (RBC) [Mass/Vol] 30.2 g/dL 32-36 [facility] Work Phone: [phone] No Panel Informationon 09-13 Estimated GFR (MDRD) Amer 125 mL/min >60 [facility] Work Phone: [phone] Comment on above: GFR Calc Estimated GFR (MDRD) Non-Af Amer 103 mL/min >60 [facility] Work Phone: Comment on above: Non- GFR Calc Platelets bldon 09-13-2021 Platelets (Bld) [#/Vol] 297 10*3/uL 150-450 [facility] Work Phone: Serum or plasma calcium merlyn urement (mass/volume)on 09-13-2021 Calcium [Mass/Vol] 8.8 mg/dL 8.5-10.1 [facility] Work Phone: Serum or plasma cholesterol in HDL measurement (mass/volume)on 09-13-2021 Cholesterol in HDL [Mass/Vol] 53 mg/dL [facility] Work Phone: Comment on above: The drugs N-Acetylcy steine and Metamizole may falsely depress this assay. Reference Range HDL <40 mg/dL Low HDL Cholesterol HDL >or= 60 mg/dL High HDL Cholesterol Serum or plasma cholesterol in VLDL measurement (mass/volume)on 09-13-2021 Cholesterol in VLDL [Mass/Vol] 14 mg/dL 5-40 [facility] Work Phone: [phone] Serum or plasma creatinine m easurement (mass/volume)on 09-13-2021 Creatinine [Mass/Vol] 0.59 mg/dL 0.55-1.02 [facility] Work Phone: Comment on above: The validity of the calculated GFR & GFRAA in patients over 70 years has not been determined. Clinical correlation is essential. Serum or plasma low density lipoprotein (LDL) cholesterol measurement (mass/volume)on 09-13-2021 Cholesterol in LDL [Mass/Vol] 37 mg/dL 0-130 [facility] Work Phone: [phone] Serum or plasma urea nitroge n measurement (mass/volume)on 09-13-2021 Urea nitrogen [Mass/Vol] 20 mg/dL 7-18 [facility] Work Phone: [phone] Thin prep Papanicolaou smear with manual screeningon 09-13-2021 Thin prep Papanicolaou smear with manual screening 5 5-15 [facility] Work Phone: Basophil percentageon 2020 Chloride [Moles/Vol] 105 mmol/L 98-[address] [facility] Work Phone: Glucose [Mass/Vol] 94 mg/dL 74-106 [facility] Work Phone: Comment on above: Please note revised GLUCOSE reference range effective 2017. Potassium [Moles/Vol] 4.1 mmol/L 3.5-5.1 [facility] Work Phone: Sodium [Moles/Vol] 140 mmol/L 136-145 [facility] Work Phone: WBC (Bld) [#/Vol] 6.9 10*3/uL 4.4-11.0 [facility] Work Phone: Blood erythrocytes count (nu mber/volume)on 08-16-2021 RBC (Bld) [#/Vol] 4.47 10*6/uL 4.2-5.4 [facility]: Blood hemoglobin measurement (mass/volume)on 08-16-2021 Hemoglobin (Bld) [Mass/Vol] 12.2 g/dL 12.0-15.0 [facility] Work Phone: Blood platelet mean volumeon 08-16-2021 Platelet mean volume (Bld) [Entitic vol] 11.0 fL 6.2-12.0 [facility] Work Phone: Determination of erythrocyte mean corpuscular volume (MCV)on 08-16-2021 MCV (RBC) [Entitic vol] 89.0 fL 81-99 [facility] Work Phone: Hematocrit Auto (Bld) [Volum e fraction]on 08-16-2021 Hematocrit (Bld) [Volume fraction] 39.8 % 37-47 [facility] Work Phone: Laboratory - Chemistry and C hemistry - challengeon 08-16-2021 CO2 [Moles/Vol] 30.0 mmol/L 21.0-32.0 [facility] Work Phone: Urea nitrogen/Creatinine [Mass ratio] 19.4 mg/mg 10-20 [facility] Work Phone: [phone] Laboratory - Hematology and Cell countson 08-16-2021 Erythrocyte distribution width (RBC) [Entitic vol] 44.2 fL 35.1-43.9 [facility] Work Phone: Erythrocyte distribution width (RBC) [Ratio] 13.5 % 11.6-14.6 [facility] Work Phone: [phone] MCH (RBC) [Entitic mass] 27.3 pg 27.0-32.0 [facility] Work Phone: [phone] MCHC Auto (RBC) [Mass/Vol]on 08-16-2021 MCHC (RBC) [Mass/Vol] 30.7 g/dL 32-36 [facility] Work Phone: No Panel Informationon 08-16 Estimated GFR (MDRD) Amer 130 mL/min >60 [facility] Work Phone: Comment on above: GFR Calc Estimated GFR (MDRD) Non-Af Amer 108 mL/min >60 [facility] Work Phone: Comment on above: Non- GFR Calc Platelets bldon 08-16-2021 Platelets (Bld) [#/Vol] 341 10*3/uL 150-450 [facility] Work Phone: [phone] Serum or plasma calcium merlyn urement (mass/volume)on 08-16-2021 Calcium [Mass/Vol] 9.3 mg/dL 8.5-10.1 [facility] Work Phone: [phone] Serum or plasma creatinine m easurement (mass/volume)on 08-16-2021 Creatinine [Mass/Vol] 0.57 mg/dL 0.55-1.02 [facility] Work Phone: Comment on above: The validity of the calculated GFR & GFRAA in patients over 70 years has not been determined. Clinical correlation is essential. Serum or plasma urea nitroge n measurement (mass/volume)on 08-16-2021 Urea nitrogen [Mass/Vol] 11 mg/dL 7-18 [facility] Work Phone: Thin prep Papanicolaou smear with manual screeningon 08-16-2021 Thin prep Papanicolaou smear with manual screening 5 5-15 [facility] Work Phone: CNOVon 06-28-2021 CNOV Office Visit (MARLA ) JUNIE WICK ([id number]) 1935 F Date Time Provider Department 06/28/21 [...] 85 year old female who presents to [facility] for follow up of CVA. [...] for women, Target triglycerides <150 Daiana Brown APRN.[facility], Department of Neurology Referring Provider: FERCHO WHITEHEAD [[id number]] Allergies As of Date: 06/28/2021 Noted Allergy [...] Hypertension, unspecified type [I10] Order(s):CONSULT TO NEUROLOGY [1159] Order #: [id number]: 1 FUTURE Prescriptions as of 06/28/2021 - acetaminophen (TYLENOL) 325 mg cap Take by mouth. - SYNTHROID 100 mcg tablet Take 1 tablet by mouth once daily. BRAND NAME, Take on empty stomach - atorvastatin (LIPITOR) 40 mg tablet Ad (more content not included)... Normal [facility] Basic Panelon 10-23-2019 Creatinine [Mass/Vol] 0.59 mg/dL Normal 0.51-0.95 [facility] Comment on above: Result Comment: Use of this assay is not recommended for patients undergoing treatment with phenindione, due to the potential for falsely depressed results. Performed By: #### I ONCA #### [address] [address] Anion gap [Moles/Vol] 11 mmol/L Normal 8-16 [facility] Comment on above: Performed By: #### I ONCA #### [address] [address] CO2 [Moles/Vol] 24 mmol/L Normal 21-32 [facility] Comment on above: Performed By: #### I ONCA #### [facility] [address] [place], [place] [address] Glucose [Mass/Vol] 89 mg/dL Normal 70-99 [facility] Comment on above: Performed By: #### I ONCA #### [facility] [address] [place] [address] Calcium [Mass/Vol] 8.4 mg/dL Low 8.5-10.1 [facility] Comment on above: Performed By: #### I ONCA #### [facility] [address] [place] [address] Urea nitrogen [Mass/Vol] 18 mg/dL Normal 7-18 [facility] Comment on above: Performed By: #### I ONCA #### [place] [address] Chloride [Moles/Vol] 110 mmol/L High 98-107 [facility] Comment on above: Performed By: #### I ONCA #### [place] [address] Potassium [Moles/Vol] 3.9 mmol/L Normal 3.5-5.1 [facility] Comment on above: Performed By: #### I ONCA #### [place] [address] Sodium [Moles/Vol] 141 mmol/L Normal 136-145 [facility] Comment on above: Performed By: #### I ONCA #### [address] [address] Hemogram/Diffon 10-23-2019 Abs Immature Grans 0.02 thou/cmm Normal 0.00-0.05 [facility] Comment on above: Performed By: #### I ONCA #### [address] [address] Abs Neut (ANC) 3.18 thou/cmm Normal 1.56-6.13 [facility] Comment on above: Performed By: #### I ONCA #### [facility] [address] [place] [address] Abs. Baso 0.04 thou/cmm Normal 0.01-0.08 [facility] Comment on above: Performed By: #### I ONCA #### [facility] [address] [place], [place] [address] Abs. Mcnairy 0.75 thou/cmm High 0.27-0.70 [facility] Comment on above: Performed By: #### I ONCA #### [facility] [address] [place] [address] Basophils/100 WBC (Bld) 0.7 % Normal [facility] Comment on above: Performed By: #### I ONCA #### [facility] [address] [place] [address] Eosinophils (Bld) [#/Vol] 0.15 thou/cmm Normal 0.00-0.31 [facility] Comment on above: Performed By: #### I ONCA #### [facility] [address] [place] [address] Eosinophils/100 WBC (Bld) 2.5 % Normal [facility] Comment on above: Performed By: #### I ONCA #### [facility] [address] [place] [address] Erythrocyte distribution width (RBC) [Ratio] 13.5 % Normal 11.7-14.4 [facility] Comment on above: Performed By: #### I ONCA #### [facility] [address] [place] [address] Hematocrit (Bld) [Volume fraction] 39.3 % Normal 34.1-44.9 [facility] Comment on above: Performed By: #### I ONCA #### [facility] [address] [place] [address] Hemoglobin (Bld) [Mass/Vol] 12.4 g/dL Normal 11.2-15.7 [facility] Comment on above: Performed By: #### I ONCA #### [facility] [address] [place] [address] Immature Grans 0.30 % Normal [facility] Comment on above: Performed By: #### I ONCA #### [facility] [address] [place], [place] [address] Lymphocytes (Bld) [#/Vol] 1.85 thou/cmm Normal 1.18-3.74 [facility] Comment on above: Performed By: #### I ONCA #### [facility] [address] [place], [place] [address] Lymphocytes/100 WBC (Bld) 30.9 % Normal [facility] Comment on above: Performed By: #### I ONCA #### [facility] [address] [place], [place] [address] MCH (RBC) [Entitic mass] 28.1 pg Normal 25.6-32.2 [facility] Comment on above: Performed By: #### I ONCA #### [facility] [address] [place], [place] [address] MCHC (RBC) [Mass/Vol] 31.6 % Normal 31.6-34.8 [facility] Comment on above: Performed By: #### I ONCA #### [facility] [address] [place], [place] [address] MCV (RBC) [Entitic vol] 88.9 fL Normal 79.4-94.8 [facility] Comment on above: Performed By: #### I ONCA #### [facility] [address] [place], [place] [address] Monocytes/100 WBC (Bld) 12.5 % Normal [facility] Comment on above: Performed By: #### I ONCA #### [facility] [address] [place], [place] [address] Platelet mean volume (Bld) [Entitic vol] 11.1 fL Normal 9.4-12.3 [facility] Comment on above: Performed By: #### I ONCA #### [facility] [address] [place], [place] [address] Platelets (Bld) [#/Vol] 215 thou/cmm Normal 182-369 [facility] Comment on above: Performed By: #### I ONCA #### [facility] [address] [place] [address] RBC (Bld) [#/Vol] 4.42 mil/cmm Normal 3.93-5.22 [facility] Comment on above: Performed By: #### I ONCA #### [facility] [address] [place] [address] RDW SD 44.3 fl Normal 36.4-46.3 [facility] Comment on above: Performed By: #### I ONCA #### [facility] [address] [place] [address] Seg Neutrophil 53.1 % Normal [facility] Comment on above: Performed By: #### I ONCA #### [facility] [address] [place] [address] WBC (Bld) [#/Vol] 5.99 thou/cmm Normal 3.98-10.04 [facility] Comment on above: Performed By: #### I ONCA #### [facility] [address] [place] [address] Hgb A1con 10-23-2019 HbA1c (Bld) [Mass fraction] 120 mg/dl Normal [facility] Comment on above: Performed By: #### T &S #### [facility] [address] [place] [address] HbA1c (Bld) [Mass fraction] 5.8 % Normal 4.2-6.3 [facility] Comment on above: Result Comment: Meth od is National Glycohemoglobin Standardization Program (NGSP) compliant. Performed By: #### T &S #### [facility] [address] [place] [address] Lipid Profileon 10-23-2019 Cholesterol in HDL [Mass/Vol] 62 mg/dL Normal >40 [facility] Comment on above: Performed By: #### I ONCA #### [facility] [address] [place] [address] Cholesterol in LDL [Mass/Vol] 86 mg/dL Normal [facility] Comment on above: Result Comment: No C AD and with fewer than 2 CAD risk factors <160 mg/dL No CAD but with 2 or more CAD risk factors <130 mg/dL Definite CAD or other atherosclerotic disease <100 mg/dL Performed By: #### I ONCA #### [facility] [address] [place], [place] [address] Cholesterol in LDL/Cholesterol in HDL [Mass ratio] 1.4 Normal 0.6-3.6 [facility] Comment on above: Result Comment: LDL, VLDL,LDL/HDL, Invalid if Triglyceride >400 Performed By: #### I ONCA #### [facility] [address] [place], [place] [address] Cholesterol.total/Choles terol in HDL [Mass ratio] 2.7 {ratio} Normal 1.8-5.3 [facility] Comment on above: Performed By: #### I ONCA #### [place] [id number] Cholesterol [Mass/Vol] 169 mg/dL Normal 0-199 [facility] Comment on above: Result Comment: <200 Desirable 200-240 Borderline >240 High Performed By: #### I ONCA #### [place] [address] Cholesterol in VLDL [Mass/Vol] 21 mg/dL Normal <50 Desired [facility] Comment on above: Performed By: #### I ONCA #### [place] [address] Triglyceride [Mass/Vol] 107 mg/dL Normal 0-149 [facility] Comment on above: Result Comment: < 20 0 Desirable Result invalid if not a fasting specimen. Performed By: #### I ONCA #### [place] [address] MDRD GFRon 10-23-2019 GFR/1.73 sq M predicted among non-blacks MDRD (S/P/Bld) [Vol rate/Area] mL/min/{1.73_m2} Normal >60mL/min/1.7 3m2 [facility] Comment on above: Result Comment: If t he patient is , multiply the result by 1.210. Performed By: #### C BCD1 #### [place] [id number] Magnesium Bloodon 10-23-2019 Magnesium [Mass/Vol] 2.1 mg/dL Normal 1.6-2.6 [facility] Comment on above: Performed By: #### I ONCA #### [facility] [address] [place], [place] [address] Basic Panelon 10-22-2019 Creatinine [Mass/Vol] 0.65 mg/dL Normal 0.51-0.95 [facility] Comment on above: Result Comment: Use of this assay is not recommended for patients undergoing treatment with phenindione, due to the potential for falsely depressed results. Performed By: #### I ONCA #### [facility] [address] [place], [place] [address] Anion gap [Moles/Vol] 10 mmol/L Normal 8-16 [facility] Comment on above: Performed By: #### I ONCA #### [address] [address] Calcium [Mass/Vol] 8.5 mg/dL Normal 8.5-10.1 [facility] Comment on above: Performed By: #### I ONCA #### [address] [address] CO2 [Moles/Vol] 22 mmol/L Normal 21-32 [facility] Comment on above: Performed By: #### I ONCA #### [address] [address] Glucose [Mass/Vol] 83 mg/dL Normal 70-99 [facility] Comment on above: Performed By: #### I ONCA #### [facility] [address] [place], [place] [address] Urea nitrogen [Mass/Vol] 16 mg/dL Normal 7-18 [facility] Comment on above: Performed By: #### I ONCA #### [facility] [address] [place], [place] [address] Chloride [Moles/Vol] 111 mmol/L High 98-107 [facility] Comment on above: Performed By: #### I ONCA #### [facility] [address] [place], [place] [address] Potassium [Moles/Vol] 4.1 mmol/L Normal 3.5-5.1 [facility] Comment on above: Performed By: #### I ONCA #### [facility] [address] [place] [address] Sodium [Moles/Vol] 139 mmol/L Normal 136-145 [facility] Comment on above: Performed By: #### I ONCA #### [place] [address] Hemogram/Diffon 10-22-2019 Abs Immature Grans 0.02 thou/cmm Normal 0.00-0.05 [facility] Comment on above: Performed By: #### I ONCA #### [place] [address] Abs Neut (ANC) 3.79 thou/cmm Normal 1.56-6.13 [facility] Comment on above: Performed By: #### I ONCA #### [place] [address] Abs. Baso 0.04 thou/cmm Normal 0.01-0.08 [facility] Comment on above: Performed By: #### I ONCA #### [place] [address] Abs. Mcnairy 0.91 thou/cmm High 0.27-0.70 [facility] Comment on above: Performed By: #### I ONCA #### [place] [address] Basophils/100 WBC (Bld) 0.6 % Normal [facility] Comment on above: Performed By: #### I ONCA #### [place] [address] Eosinophils (Bld) [#/Vol] 0.15 thou/cmm Normal 0.00-0.31 [facility] Comment on above: Performed By: #### I ONCA #### [place] [address] Eosinophils/100 WBC (Bld) 2.1 % Normal [facility] Comment on above: Performed By: #### I ONCA #### [facility] [address] [place] [address] Erythrocyte distribution width (RBC) [Ratio] 13.6 % Normal 11.7-14.4 [facility] Comment on above: Performed By: #### I ONCA #### [facility] [address] [place] [address] Hematocrit (Bld) [Volume fraction] 38.6 % Normal 34.1-44.9 [facility] Comment on above: Performed By: #### I ONCA #### [facility] [address] [place] [address] Hemoglobin (Bld) [Mass/Vol] 11.9 g/dL Normal 11.2-15.7 [facility] Comment on above: Performed By: #### I ONCA #### [place] [address] Immature Grans 0.30 % Normal [facility] Comment on above: Performed By: #### I ONCA #### [facility] [address] [place] [address] Lymphocytes (Bld) [#/Vol] 2.21 thou/cmm Normal 1.18-3.74 [facility] Comment on above: Performed By: #### I ONCA #### [place] [address] Lymphocytes/100 WBC (Bld) 31.0 % Normal [facility] Comment on above: Performed By: #### I ONCA #### [facility] [address] [place] [address] MCH (RBC) [Entitic mass] 27.6 pg Normal 25.6-32.2 [facility] Comment on above: Performed By: #### I ONCA #### [facility] [address] [place] [address] MCHC (RBC) [Mass/Vol] 30.8 % Low 31.6-34.8 [facility] Comment on above: Performed By: #### I ONCA #### [place] [address] MCV (RBC) [Entitic vol] 89.6 fL Normal 79.4-94.8 [facility] Comment on above: Performed By: #### I ONCA #### [facility] [address] [place], [place] [address] Monocytes/100 WBC (Bld) 12.8 % Normal [facility] Comment on above: Performed By: #### I ONCA #### [facility] [address] [place], [place] [address] Platelet mean volume (Bld) [Entitic vol] 11.7 fL Normal 9.4-12.3 [facility] Comment on above: Performed By: #### I ONCA #### [facility] [address] [place], [place] [address] Platelets (Bld) [#/Vol] 201 thou/cmm Normal 182-369 [facility] Comment on above: Performed By: #### I ONCA #### [facility] [address] [place], [place] [address] RBC (Bld) [#/Vol] 4.31 mil/cmm Normal 3.93-5.22 [facility] Comment on above: Performed By: #### I ONCA #### [facility] [address] [place], [place] [address] RDW SD 44.9 fl Normal 36.4-46.3 [facility] Comment on above: Performed By: #### I ONCA #### [address] [address] Seg Neutrophil 53.2 % Normal [facility] Comment on above: Performed By: #### I ONCA #### [facility] [address] [place], [place] [address] WBC (Bld) [#/Vol] 7.12 thou/cmm Normal 3.98-10.04 [facility] Comment on above: Performed By: #### I ONCA #### [facility] [address] [place], [place] [address] Magnesium Bloodon 10-22-2019 Magnesium [Mass/Vol] 2.2 mg/dL Normal 1.6-2.6 [facility] Comment on above: Performed By: #### I ONCA #### [facility] [address] [place], [place] [address] TSH, 3rd generationon 2019 TSH, 3rd generation 1.450 uIU/mL Normal 0.358-3.740 [facility] Comment on above: Performed By: #### I ONCA #### [facility] [address] [place], [place] [address] Basic Panelon 10-21-2019 Creatinine [Mass/Vol] 0.55 mg/dL Normal 0.51-0.95 [facility] Comment on above: Result Comment: Use of this assay is not recommended for patients undergoing treatment with phenindione, due to the potential for falsely depressed results. Performed By: #### C BCD1 #### [facility] [address] [place], [place] [address] Anion gap [Moles/Vol] 9 mmol/L Normal 8-16 [facility] Comment on above: Performed By: #### C BCD1 #### [facility] [address] [place], [place] [address] CO2 [Moles/Vol] 25 mmol/L Normal 21-32 [facility] Comment on above: Performed By: #### C BCD1 #### [facility] [address] [place], [place] [address] Glucose [Mass/Vol] 87 mg/dL Normal 70-99 [facility] Comment on above: Performed By: #### C BCD1 #### [facility] [address] [place], [place] [address] Urea nitrogen [Mass/Vol] 9 mg/dL Normal 7-18 [facility] Comment on above: Performed By: #### C BCD1 #### [facility] [address] [place], [place] [address] Calcium [Mass/Vol] 8.1 mg/dL Low 8.5-10.1 [facility] Comment on above: Performed By: #### C BCD1 #### [facility] [address] [place], [place] [address] Chloride [Moles/Vol] 112 mmol/L High 98-107 [facility] Comment on above: Performed By: #### C BCD1 #### [facility] [address] [place], [place] [address] Potassium [Moles/Vol] 3.5 mmol/L Normal 3.5-5.1 [facility] Comment on above: Performed By: #### C BCD1 #### [facility] [address] [place], [place] [address] Sodium [Moles/Vol] 142 mmol/L Normal 136-145 [facility] Comment on above: Performed By: #### C BCD1 #### [facility] [address] [place], [place] [address] CT BRAIN WO IVCONon 10-21-19 CT BRAIN WO IVCON * * *Final Report* * * DATE OF EXAM: Oct 21 2019 2:33PM [facility] 0504 - CT BRAIN WO IVCON / [...] surrounding vasogenic edema. No new intracranial findings. Frame Nailer: LYLA Transcribe Date/Time: Oct 21 2019 2:37P Dictated by : EDY ALBA MD This examination was interpreted and the report reviewed and electronically signed by: EDY ALBA MD on Oct 21 2019 2:46PM EST Normal [facility] Hemogram/Diffon 10-21-2019 Abs Immature Grans 0.03 thou/cmm Normal 0.00-0.05 [facility] Comment on above: Performed By: #### C BCD1 #### [facility] [address] [place] [address] Abs Neut (ANC) 5.10 thou/cmm Normal 1.56-6.13 [facility] Comment on above: Performed By: #### C BCD1 #### [facility] [address] [place] [address] Abs. Baso 0.03 thou/cmm Normal 0.01-0.08 [facility] Comment on above: Performed By: #### C BCD1 #### [place] [address] Abs. Mcnairy 0.94 thou/cmm High 0.27-0.70 [facility] Comment on above: Performed By: #### C BCD1 #### [facility] [address] [place] [address] Basophils/100 WBC (Bld) 0.4 % Normal [facility] Comment on above: Performed By: #### C BCD1 #### [address] [address] Eosinophils (Bld) [#/Vol] 0.07 thou/cmm Normal 0.00-0.31 [facility] Comment on above: Performed By: #### C BCD1 #### [facility] [address] [place], [place] [address] Eosinophils/100 WBC (Bld) 0.9 % Normal [facility] Comment on above: Performed By: #### C BCD1 #### [facility] [address] [place] [address] Erythrocyte distribution width (RBC) [Ratio] 13.8 % Normal 11.7-14.4 [facility] Comment on above: Performed By: #### C BCD1 #### [address], [place] [address] Hematocrit (Bld) [Volume fraction] 34.5 % Normal 34.1-44.9 [facility] Comment on above: Performed By: #### C BCD1 #### [facility] [address] [place] [address] Hemoglobin (Bld) [Mass/Vol] 10.6 g/dL Low 11.2-15.7 [facility] Comment on above: Performed By: #### C BCD1 #### [facility] [address] [place] [address] Immature Grans 0.40 % Normal [facility] Comment on above: Performed By: #### C BCD1 #### [facility] [address] [place] [address] Lymphocytes (Bld) [#/Vol] 1.41 thou/cmm Normal 1.18-3.74 [facility] Comment on above: Performed By: #### C BCD1 #### [facility] [address] [place] [address] Lymphocytes/100 WBC (Bld) 18.6 % Normal [facility] [facility] Comment on above: Performed By: #### C BCD1 #### [facility] [address] [place] [address] MCH (RBC) [Entitic mass] 27.2 pg Normal 25.6-32.2 [facility] Comment on above: Performed By: #### C BCD1 #### [facility] [address] [place] [address] MCHC (RBC) [Mass/Vol] 30.7 % Low 31.6-34.8 [facility] Comment on above: Performed By: #### C BCD1 #### [facility] [address] [place] [address] MCV (RBC) [Entitic vol] 88.5 fL Normal 79.4-94.8 [facility] Comment on above: Performed By: #### C BCD1 #### [place] [address] Monocytes/100 WBC (Bld) 12.4 % Normal [facility] Comment on above: Performed By: #### C BCD1 #### [facility] [address] [place], [place] [address] Platelet mean volume (Bld) [Entitic vol] 11.2 fL Normal 9.4-12.3 [facility] Comment on above: Performed By: #### C BCD1 #### [facility] [address] [place], [place] [address] Platelets (Bld) [#/Vol] 201 thou/cmm Normal 182-369 [facility] Comment on above: Performed By: #### C BCD1 #### [facility] [address] [place], [place] [address] RBC (Bld) [#/Vol] 3.90 mil/cmm Low 3.93-5.22 [facility] Comment on above: Performed By: #### C BCD1 #### [facility] [address] [place] [address] RDW SD 44.6 fl Normal 36.4-46.3 [facility] Comment on above: Performed By: #### C BCD1 #### [facility] [address] [place], [place] [address] Seg Neutrophil 67.3 % Normal [facility] Comment on above: Performed By: #### C BCD1 #### [facility] [address] [place], [place] [address] WBC (Bld) [#/Vol] 7.58 thou/cmm Normal 3.98-10.04 [facility] Comment on above: Performed By: #### C BCD1 #### [facility] [address] [place] [address] MRA BRAIN WO/W IVCONon 10-20 MRA BRAIN WO/W IVCON * * *Final Report* * * DATE OF EXAM: Oct 21 2019 2:13PM [facility] 0273 - MRA BRAIN WO/W IVCON / PROCEDURE REASON: Stroke, follow up * * * * Physician Interpretation * * * * EXAMINATION: MRI BRAIN WO/W IVCON, MRA BRAIN WO/W IVCON, MRA CAROTID WO/W IVCON CLINICAL HISTORY: dizziness, abnormal gait. F/U cerebellar hemorrhage TECHNIQUE: Routine noncontrast MRI brain protocol including diffusion images. Intracranial and extracranial 3D uufp-yy-euxuqi MRA. 3D maximum intensity projection images were [...] focal high-grade stenosis in the proximal right SUPERVISOR SANDBLASTER P1 segment. The visualized distal vertebral and basilar arteries are otherwise patent. The distal ICAs are patent and within normal limits of caliber. The proximal ACAs, MCAs and general foundry worker are patent and within normal limits of caliber and configuration. There is no evidence of aneurysm in the visualized vessels. IMPRESSION: Acute left galvez radiata lacunar infarct. Stable acute right cerebellar parenchymal hemorrhage. Right SUPERVISOR SANDBLASTER P1 segment focal high-grade stenosis. No other high-grade stenosis or aneurysm in the intracranial and extracranial circulations. Frame Nailer: PSCB Transcribe Date/Time: Oct 21 2019 2:46P Dictated by : EDY ALBA MD This examination was interpreted and the report reviewed and electronically signed by: EDY ALBA MD on Oct 21 2019 3:01PM EST Normal [facility] MRA CAROTID WO/W IVCONon MRA CAROTID WO/W IVCON * * *Final Report * * * DATE OF EXAM: Oct 21 2019 2:13PM [facility] 0276 - MRA CAROTID WO/W IVCON / PROCEDURE REASON: Parenchymal hemorrhage proven * * * * Physician Interpretation * * * * EXAMINATION: MRI BRAIN WO/W IVCON, MRA BRAIN WO/W IVCON, MRA CAROTID WO/W IVCON CLINICAL HISTORY: dizziness, abnormal gait. F/U cerebellar hemorrhage TECHNIQUE: Routine noncontrast MRI brain protocol including diffusion images. Intracranial and extracranial 3D lwud-sp-nzftur MRA. 3D maximum intensity projection images were [...] focal high-grade stenosis in the proximal right SUPERVISOR SANDBLASTER P1 segment. The visualized distal vertebral and basilar arteries are otherwise patent. The distal ICAs are patent and within normal limits of caliber. The proximal ACAs, MCAs and general foundry worker are patent and within normal limits of caliber and configuration. There is no evidence of aneurysm in the visualized vessels. IMPRESSION: Acute left galvez radiata lacunar infarct. Stable acute right cerebellar parenchymal hemorrhage. Right SUPERVISOR SANDBLASTER P1 segment focal high-grade stenosis. No other high-grade stenosis or aneurysm in the intracranial and extracranial circulations. Frame Nailer: PSCB Transcribe Date/Time: Oct 21 2019 2:46P Dictated by : EDY ALBA MD This examination was interpreted and the report reviewed and electronically signed by: EDY ALBA MD on Oct 21 2019 3:01PM EST Normal [facility] MRI BRAIN WO/W IVCONon 10-20 MRI BRAIN WO/W IVCON * * *Final Report* * * DATE OF EXAM: Oct 21 2019 2:13PM [facility] 0295 - MRI BRAIN WO/W IVCON / PROCEDURE REASON: Stroke, follow up * * * * Physician Interpretation * * * * EXAMINATION: MRI BRAIN WO/W IVCON, MRA BRAIN WO/W IVCON, MRA CAROTID WO/W IVCON CLINICAL HISTORY: dizziness, abnormal gait. F/U cerebellar hemorrhage TECHNIQUE: Routine noncontrast MRI brain protocol including diffusion images. Intracranial and extracranial 3D biuz-wy-ojazdk MRA. 3D maximum intensity projection images were [...] focal high-grade stenosis in the proximal right SUPERVISOR SANDBLASTER P1 segment. The visualized distal vertebral and basilar arteries are otherwise patent. The distal ICAs are patent and within normal limits of caliber. The proximal ACAs, MCAs and general foundry worker are patent and within normal limits of caliber and configuration. There is no evidence of aneurysm in the visualized vessels. IMPRESSION: Acute left galvez radiata lacunar infarct. Stable acute right cerebellar parenchymal hemorrhage. Right SUPERVISOR SANDBLASTER P1 segment focal high-grade stenosis. No other high-grade stenosis or aneurysm in the intracranial and extracranial circulations. Frame Nailer: LYLA Transcribe Date/Time: Oct 21 2019 2:46P Dictated by : EDY ALBA MD This examination was interpreted and the report reviewed and electronically signed by: EDY ALBA MD on Oct 21 2019 3:01PM EST Normal [facility] Magnesium Bloodon 10-21-2019 Magnesium [Mass/Vol] 2.0 mg/dL Normal 1.6-2.6 [facility] Comment on above: Performed By: #### C BCD1 #### [place] [address] Phosphorus Bloodon 0 Phosphate [Mass/Vol] 6.7 mg/dL High 2.5-4.9 [facility] Comment on above: Performed By: #### C BCD1 #### [place] [address] ABO/Rh Confirmationon 2019 ABO group Nom (Bld) A Normal [facility] Comment on above: Performed By: #### C BCD1 #### [place] [address] RH Type Positive Normal [facility] Comment on above: Performed By: #### C BCD1 #### [place] [address] Activated PTTon 10-20-2019 aPTT Coag (Bld) [Time] 22.8 s Low 23.0-32.4 [facility] Comment on above: Result Comment: Unfr actionated [...] laboratory APTT reagent in use throughout the [facility]. Performed By: #### A PTT #### [facility] [address] [place] [address] [address] BRAIN WO IVCONon 10-20-[address] BRAIN WO IVCON * * *Final Report* * * DATE OF EXAM: Oct 20 2019 9:42PM [facility] 0504 - CT BRAIN WO IVCON / [...] loss and chronic small vessel ischemic change. Frame Nailer: LYLA Transcribe Date/Time: Oct 20 2019 10:05P Dictated by : TOMMY PATTERSON MD This examination was interpreted and the report reviewed and electronically signed by: TOMMY PATTERSON MD on Oct 20 2019 10:10PM EST Normal [facility] CT-Brain/Head without Contra st IMPORTon 10-20-2019 CT-Brain/Head without Contrast IMPORT Images were obtained outside of [facility] Normal [facility] Comprehensive Panelon 2019 ALP [Catalytic activity/Vol] 72 U/L Normal 45-117 [facility] Comment on above: Performed By: #### P 14 #### [place] [address] Bilirubin [Mass/Vol] 0.4 mg/dL Normal 0.2-1.0 [facility] Comment on above: Result Comment: Use of this assay is not recommended for patients undergoing treatment with eltrombopag due to the potential for falsely elevated results. Performed By: #### P 14 #### [facility] [address] [place], [place] [address] Protein [Mass/Vol] 6.7 g/dL Normal 6.4-8.2 [facility] Comment on above: Performed By: #### P 14 #### [facility] [address] [place], [place] [address] Creatinine [Mass/Vol] 0.48 mg/dL Low 0.51-0.95 [facility] Comment on above: Result Comment: Use of this assay is not recommended for patients undergoing treatment with phenindione, due to the potential for falsely depressed results. Performed By: #### P 14 #### [facility] [address] [place] [address] ALT [Catalytic activity/Vol] 23 U/L Normal 12-78 [facility] Comment on above: Performed By: #### P 14 #### [facility] [address] [place], [place] [address] AST [Catalytic activity/Vol] 21 U/L Normal 15-37 [facility] Comment on above: Performed By: #### P 14 #### [facility] [address] [place], [place] [address] Albumin [Mass/Vol] 3.4 g/dL Normal 3.4-5.0 [facility] Comment on above: Performed By: #### P 14 #### [facility] [address] [place], [place] [address] Anion gap [Moles/Vol] 7 mmol/L Low 8-16 [facility] Comment on above: Performed By: #### P 14 #### [facility] [address] [place], [place] [address] Calcium [Mass/Vol] 8.4 mg/dL Low 8.5-10.1 [facility] Comment on above: Performed By: #### P 14 #### [facility] [address] [place], [place] [address] CO2 [Moles/Vol] 25 mmol/L Normal 21-32 [facility] Comment on above: Performed By: #### P 14 #### [facility] [address] [place] [address] Glucose [Mass/Vol] 99 mg/dL Normal 70-99 [facility] Comment on above: Performed By: #### P 14 #### [facility] [address] [place] [address] Urea nitrogen [Mass/Vol] 15 mg/dL Normal 7-18 [facility] Comment on above: Performed By: #### P 14 #### [facility] [address] [place] [address] Chloride [Moles/Vol] 109 mmol/L High 98-107 [facility] Comment on above: Performed By: #### P 14 #### [facility] [address] [place] [address] Potassium [Moles/Vol] 3.5 mmol/L Normal 3.5-5.1 [facility] Comment on above: Performed By: #### P 14 #### [facility] [address] [place] [address] Sodium [Moles/Vol] 137 mmol/L Normal 136-145 [facility] Comment on above: Performed By: #### P 14 #### [facility] [address] [place] [address] Hemogram/Diffon 10-20-2019 Abs Immature Grans 0.06 thou/cmm High 0.00-0.05 [facility] Comment on above: Performed By: #### C BCD1 #### [facility] [address] [place] [address] Abs Neut (ANC) 9.32 thou/cmm High 1.56-6.13 [facility] Comment on above: Performed By: #### C BCD1 #### [facility] [address] [place] [address] Abs. Baso 0.03 thou/cmm Normal 0.01-0.08 [facility] Comment on above: Performed By: #### C BCD1 #### [facility] [address] [place] [address] Abs. Mcnairy 0.76 thou/cmm High 0.27-0.70 [facility] Comment on above: Performed By: #### C BCD1 #### [facility] [address] [place] [address] Basophils/100 WBC (Bld) 0.3 % Normal [facility] Comment on above: Performed By: #### C BCD1 #### [facility] [address] [place] [address] Eosinophils (Bld) [#/Vol] 0.01 thou/cmm Normal 0.00-0.31 [facility] Comment on above: Performed By: #### C BCD1 #### [facility] [address] [place] [address] Eosinophils/100 WBC (Bld) 0.1 % Normal [facility] Comment on above: Performed By: #### C BCD1 #### [facility] [address] [place] [address] Erythrocyte distribution width (RBC) [Ratio] 13.5 % Normal 11.7-14.4 [facility] Comment on above: Performed By: #### C BCD1 #### [facility] [address] [place] [address] Hematocrit (Bld) [Volume fraction] 36.5 % Normal 34.1-44.9 [facility] Comment on above: Performed By: #### C BCD1 #### [facility] [address] [place] [address] Hemoglobin (Bld) [Mass/Vol] 11.5 g/dL Normal 11.2-15.7 [facility] Comment on above: Performed By: #### C BCD1 #### [facility] [address] [place] [address] Immature Grans 0.50 % Normal [facility] Comment on above: Performed By: #### C BCD1 #### [facility] [address] [place] [address] Lymphocytes (Bld) [#/Vol] 0.84 thou/cmm Low 1.18-3.74 [facility] Comment on above: Performed By: #### C BCD1 #### [facility] [address] [place], [place] [address] Lymphocytes/100 WBC (Bld) 7.6 % Normal [facility] Comment on above: Performed By: #### C BCD1 #### [facility] [address] [place], [place] [address] MCH (RBC) [Entitic mass] 27.6 pg Normal 25.6-32.2 [facility] Comment on above: Performed By: #### C BCD1 #### [facility] [address] [place], [place] [address] MCHC (RBC) [Mass/Vol] 31.5 % Low 31.6-34.8 [facility] Comment on above: Performed By: #### C BCD1 #### [facility] [address] [place], [place] [address] MCV (RBC) [Entitic vol] 87.7 fL Normal 79.4-94.8 [facility] Comment on above: Performed By: #### C BCD1 #### [facility] [address] [place], [place] [address] Monocytes/100 WBC (Bld) 6.9 % Normal [facility] Comment on above: Performed By: #### C BCD1 #### [facility] [address] [place], [place] [address] Platelet mean volume (Bld) [Entitic vol] 11.2 fL Normal 9.4-12.3 [facility] Comment on above: Performed By: #### C BCD1 #### [facility] [address] [place], [place] [address] Platelets (Bld) [#/Vol] 210 thou/cmm Normal 182-369 [facility] Comment on above: Performed By: #### C BCD1 #### [facility] [address] [place], [place] [address] RBC (Bld) [#/Vol] 4.16 mil/cmm Normal 3.93-5.22 [facility] Comment on above: Performed By: #### C BCD1 #### [facility] [address] [place] [address] RDW SD 43.6 fl Normal 36.4-46.3 [facility] Comment on above: Performed By: #### C BCD1 #### [facility] [address] [place] [address] Seg Neutrophil 84.6 % Normal [facility] Comment on above: Performed By: #### C BCD1 #### [facility] [address] [place] [address] WBC (Bld) [#/Vol] 11.02 thou/cmm High 3.98-10.04 [facility] Comment on above: Performed By: #### C BCD1 #### [facility] [address] [place] [address] Ionized Calciumon 10-20-2019 Ionized Ca,PH7.4 4.58 mg/dL Low 4.61-5.17 [facility] Comment on above: Performed By: #### I ONCA #### [place] [address] pH (Bld) 7.405 [pH] Normal 7.320-7.430 [facility] Comment on above: Performed By: #### I ONCA #### [place] [address] Ionized Calcium 4.57 mg/dL Low 4.61-5.17 [facility] Comment on above: Performed By: #### I ONCA #### [place] [address] MRSA Screenon 10-20-2019 MRSA DNA ADAM+probe Ql (Unsp spec) Test performed at [facility] No MRSA detected. Normal [facility] Comment on above: Performed By: #### I ONCA #### [facility] [address] [place] [address] Magnesium Bloodon 10-20-2019 Magnesium [Mass/Vol] 2.1 mg/dL Normal 1.6-2.6 [facility] Comment on above: Performed By: #### M AG #### [place] [address] Phosphorus Bloodon 0 Phosphate [Mass/Vol] 2.3 mg/dL Low 2.5-4.9 [facility] Comment on above: Performed By: #### P HOS #### [facility] [address] [place] [address] Protimeon 10-20-2019 INR Coag (PPP) [Relative time] 1.00 {INR} Normal 0.90-1.30 [facility] Comment on above: Result Comment: Sowmya min K Antagonist (VKA) Therapeutic Range: INR 2 to 3 (Target INR of 2.5) Note: For patients treated with VKA drugs, such as warfarin, the [place] [employer] 2012 Guideline recommends [...] 2.5 to 3.5 target INR of 3). Juantt GH, et al. Chest 2012; 141:7S-47S Alejandro RA et al. JAC 2017; 70: 252-289 Performed By: #### P T #### [place] [address] PT Coag (PPP) [Time] 10.8 s Normal 9.7-13.0 [facility] Comment on above: Performed By: #### P T #### [facility] [address] [place] [address] Type and Screenon 10-20-2019 Comment See Below Normal [facility] Comment on above: Result Comment: Scre en &/or Xmatch expires in 3 days at 12 midnight. Redraw patient at that time. Performed By: #### T &S #### [place] [address] ABO group Nom (Bld) A Normal [facility] Comment on above: Performed By: #### T &S #### [facility] [address] [place], [place] [address] RH Type Positive Normal [facility] Comment on above: Performed By: #### T &S #### [facility] [address] [place], [place] [address] XR CHEST 1V FRONTALon 2019 XR CHEST [...] Other: None IMPRESSION: No acute radiographic abnormality. Frame Nailer: PSCB Transcribe Date/Time: Oct 20 2019 8:04P Dictated by : DANDRE PRETTY MD This examination was interpreted and the report reviewed and electronically signed by: DANDRE PRETTY MD on Oct 20 2019 8:05PM EST Normal [facility] Culture, urine Bacteria identified Cx Nom (U) Presumptive E. coli [facility] Work Phone: Vital Signs Date Time Vital Sign Value Performing Clinician Andrey monroy 05-19-2025 12:39-0400 Body height 147.[address] Fercho Whitehead DO Work Phone: [facility] 09-19-2022 10:37-0500 Body height 147.[address] Fercho Whitehead Work Phone: [facility] Encounters Encounter Date Encounter Type Care Provider Facility Start: 06-24-20[facility] Fa cility:[facility] Start: 06-03-2025 ambulatory Shereenparkselie [facility] Fa cility:[facility] Start: 05-13-2025 ambulatory Fercho Whitehead Facilit y:[facility] Start: 05-13-2025 Registered Referred Arnulfo [facility] Start: 05-11-2025 End: 05-11-[address] Fercho Whitehead DO Work Phone: [facility] Start: 05-11-2025 End: 05-11-2025 Patient encounter procedure Celia Reed GARNISHER-C [facility] Work Phone: Start: 04-01-2025 ambulatory Fercho Whitehead Facilit y:[facility] Start: 04-01-2025 Registered Referred Arnulfo [facility] Start: 03-04-2025 ambulatory Fercho Whitehead Facilit y:[facility] Start: 03-04-2025 Registered Referred Arnulfo [facility] Start: 02-18-2025 ambulatory Fercho Whitehead Facilit y:[facility] Start: 02-18-2025 Registered Referred Arnulfo [facility] Start: 01-07-2025 ambulatory Fercho Whitehead Facilit y:[facility] Start: 12-03-2024 End: 12-03-[address] Fercho Whitehead DO Work Phone: [facility] Work Phone: Start: 12-03-2024 End: 12-03-2024 Departed Referred Arnulfo [facility] Start: 12-03-2024 Registered Referred Arnulfo RicciMarquis [facility] Start: 12-03-2024 End: 12-03-2024 ambulatory Fercho Peñarison Facility:[facility] Start: 11-26-2024 End: 11-26-[address] Fercho Whitehead DO Work Phone: [facility] Work Phone: Start: 11-26-2024 End: 11-26-2024 Departed Referred Arnulfo RicciMarquis [facility] Start: 11-26-2024 End: 11-26-2024 ambulatory Fercho Whitehead Facility:[facility] Start: 11-05-2024 End: 11-05-[address] Fercho Whitehead DO Work Phone: [facility] Work Phone: Start: 11-05-2024 End: 11-05-2024 Departed Referred Arnulfo English MD [facility] Start: 11-05-2024 [facility] Start: 11-04-2024 End: 11-05-2024 ambulatory Fercho Whitehead Facility:[facility] Start: 11-04-2024 End: 11-04-[address] Arnulfo English MD -[facility] Work Phone: Start: 10-15-2024 End: 10-15-[address] Fercho Whitehead DO Work Phone: [facility] Work Phone: Start: 10-15-2024 End: 10-15-2024 Departed Referred Arnulfo English MD [facility] Start: 10-15-2024 End: 10-15-2024 ambulatory Fercho Whitehead Facility:[facility] Start: 09-03-2024 End: 09-03-2024 Departed Referred Arnulfo English MD [facility] Start: 09-03-2024 End: 09-03-2024 ambulatory Arnulfo ASHFORD Facility:[facility] Start: 11-26-2023 End: 11-26-[address] Fercho Whitehead Work Phone: [facility] Work Phone: Start: 11-26-2023 End: 11-26-[address] Fercho Whitehead Work Phone: [facility] Start: 11-26-[address] Fercho Whitehead Work Phone: [facility] Start: 11-24-2023 End: 11-24-[address] Fercho Whitehead Work Phone: [facility] Work Phone: Start: 11-24-2023 End: 11-24-[address] Fercho Whitehead Work Phone: [facility] Start: 11-06-2023 End: 11-06-[address] Fercho Whitehead Work Phone: [facility] Work Phone: Start: 10-10-2023 End: 10-10-2023 ambulatory [facility] Work Phone: Start: 10-10-2023 End: 10-10-2023 Departed Referred [facility] Start: 10-01-2023 End: 10-01-2023 ambulatory [facility] Work Phone: Start: 10-01-2023 End: 10-01-2023 Departed Referred [facility] Start: 10-01-2023 Registered Referred [facility] Start: 09-05-2023 End: 09-05-2023 ambulatory [facility] Work Phone: Start: 09-05-2023 End: 09-05-2023 Departed Referred [facility] Start: 07-04-2023 End: 07-04-2023 ambulatory [facility] Work Phone: Start: 07-04-2023 End: 07-04-2023 Departed Referred [facility] Start: 05-23-2023 End: 05-23-2023 ambulatory [facility] Work Phone: Start: 05-23-2023 End: 05-23-2023 Departed Referred [facility] Start: 02-21-2023 End: 02-21-2023 Departed Referred [facility] Start: 01-09-2023 End: 01-09-2023 ambulatory [facility] Work Phone: Start: 01-09-2023 End: 01-09-2023 Departed Referred [facility] Start: 12-12-2022 End: 12-12-[address] Fercho Whitehead Work Phone: [facility] Work Phone: Start: 12-12-2022 End: 12-12-[address] Fercho Whitehead Work Phone: [facility] Start: 11-14-2022 End: 11-14-[address] Fercho Whitehead Work Phone: [facility] Work Phone: Start: 11-14-2022 End: 11-14-[address] Fercho Whitehead Work Phone: [facility] Start: 10-17-[address] Fercho Whitehead Work Phone: [facility] Start: 09-12-2022 End: 09-12-[address] Fercho Whitehead Work Phone: [facility] Start: 09-12-2022 End: 09-12-2022 ambulatory Dr. Fercho Whitehead Work Phone: [facility] Work Phone: Start: 09-12-2022 End: 09-12-[address] Fercho Whitehead Work Phone: [facility] Start: 08-15-[address] Fercho Whitehead Work Phone: [facility] Start: 07-14-2022 End: 07-14-[address] Fercho Whitehead Work Phone: [facility] Start: 07-11-2022 End: 07-11-[address] Fercho Whitehead Work Phone: [facility] Work Phone: Start: 07-11-2022 End: 07-11-[address] Fercho Whitehead Work Phone: [facility] Start: 06-13-2022 End: 06-13-2022 ambulatory [facility] Work Phone: Start: 06-13-2022 End: 06-13-2022 Departed Referred [facility] Start: 05-16-2022 End: 05-16-2022 Departed Referred [facility] Start: 05-15-2022 End: 05-15-2022 ambulatory KATHY NILS Facility:[facility] Start: 04-25-2022 End: 04-25-2022 ambulatory [facility] Work Phone: Start: 04-25-2022 End: 04-25-2022 Departed Referred [facility] Start: 04-25-2022 Registered Referred [facility] Start: 04-11-2022 End: 04-11-2022 ambulatory [facility] Work Phone: Start: 04-11-2022 End: 04-11-2022 Departed Referred [facility] Start: 03-14-2022 End: 03-14-2022 Departed Referred [facility] Start: 03-08-2022 End: 03-08-2022 Departed Referred [facility] Start: 02-14-2022 End: 02-14-2022 Departed Referred [facility] Start: 01-10-2022 End: 01-10-2022 Departed Referred [facility] Start: 12-13-2021 End: 12-13-2021 Departed Referred [facility] Start: 12-13-2021 Registered Referred [facility] Start: 11-08-2021 End: 11-08-2021 Departed Referred [facility] Start: 11-08-2021 Registered Referred [facility] Start: 10-11-2021 End: 10-11-2021 Departed Referred [facility] Start: 10-11-2021 Registered Referred [facility] Start: 09-13-2021 End: 09-13-2021 Departed Referred [facility] Start: 08-16-2021 End: 08-16-2021 Departed Referred [facility] Procedures Date Procedure Procedure Detail Performing Clinician Start: 09-03-2024 Measurement of renal function Dr[address] Fercho Whitehead DO Work Phone: Comment on above: GFR Calc Start: 11-24-[address] Alexandr Whitehead Work Phone: Start: 10-20-2019 Antibody screen Comment on above: Performed By: #### T &S #### [place] [id number] Urine culture Immunizations Immunization Date Immunization Notes Care Provider Fa cility 11-18-2020 Covid (Moderna) [facility] 10-18-2020 Covid (Moderna) [facility] 06-18-2019 Influenza virus vaccine [facility] Payers Date Payer Category Payer Self-pay [id number] 2015 Private Health Insurance [id number] 2000 Medicare [id number] Unknown [id number] 2.16.8 [id number] Unknown [id number] 2.16.8 [id number] Unknown [id number] 2.16.8 [id number] Unknown [id number] 2.16.8 [id number] Unknown [id number] 2.16.8 [id number] Unknown [id number] 2.16.8 [id number] Unknown [id number] 2.16.8 [id number] Unknown [id number] 2.16.8 [id number] Unknown [id number] 2.16.8 [id number] Unknown [id number] 2.16.8 [id number] Unknown [id number] 2.16.8 [id number] Unknown [id number] 2.16.8 [id number] Unknown [id number] 2.16.8 [id number] Unknown [id number] 2.16.8 [id number] Social History Date Type Detail Facility Start: 03-30-2021 End: 09-19-2022 Tobacco smoking status OHIS Unknown if ever smoked [facility] Start: 10-24-2019 None [facility] Start: 10-24-2019 Alone;- [facility] Start: 11-01-2019 Non-smoker [facility] Start: 1935 Sex Assigned At Female [facility] Start: 09-19-2022 End: 05-19-2025 Tobacco smoking status NHIS Never smoked tobacco (finding) [facility] Start: 11-20-2024 End: 11-21-2024 Sex Female (finding) [facility] Sex Female [facility] Medical Equipment Procedure Code Equipment Code Equipment Origin al Text Equipment Identifier Dates ORIF, hip, using Gamma nail ([id number]) Orthopaedic bone screw, non-bioabsorbable, sterile [id number] FDA Start: 03-07-2021 ORIF, hip, using Gamma nail ([id number]) Femur nail, sterile [id number] FDA Start: 03-07-2021 ORIF, hip, using Gamma nail ([id number]) Orthopaedic bone screw, non-bioabsorbable, sterile ()[id number] FDA Start: 03-07-2021 Progress note 05-15-2022 Note Date & Type Note Facility 05-15-2022 Note HNO ID: [id number] Author: Kathy Brown APRN.BUSINESS OBJECTS REPORT DEVELOPER Service: ? Author Type: Nurse Practitioner Type: Progress Notes Filed: 05/17/2022 9:25 AM Note Text: [facility] Initial Visit CEREBROVASCULAR HISTORY Junie Wick is a 86 year old female who presents for a neurological evaluation. Previous patient of Dr. Hanks in [place] Previous visit with Dr. 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 May have been a transient hypertensive spike at the time. Recovered well with no other issues. 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 Continue to keep close tab on BP [...] Procedure Laterality Date COLONOSCOP W/ OR W/O [facility] SPEC 06/24/2001 sigmoidoscopy PAST SURGICAL HISTORY [...] vibration. Coordination: Rapid alternating movements symmetric bilaterally. Thligb-pk-rmjx, nsdh-sw-crrj without dysmetria bilaterally. Reflexes: 2+/4 reflexes symmetric bilaterally. Plantar response is flexor bilaterally. Gait: Narrow-based, normal spaced and stable withou (more content not included)... [facility] Progress note 06-28-2021 Note Date & Type Note Facility 06-28-2021 Note HNO ID: [id number] Author: Daiana Brown APRN.BUSINESS OBJECTS REPORT DEVELOPER Service: ? Author Type: Nurse Practitioner Type: Progress Notes Filed: 06/28/2021 1:39 PM Note Text: Neurology Follow Up Note Date: June 28, 2021 Patient Name: Junie Wick HPI: This is Ms. Junie Wick a 85 year old female who presents to [place] [facility] for follow up of CVA. [...] for women, Target triglycerides <150 Daiana Brown APRN.BUSINESS OBJECTS REPORT DEVELOPER [facility], Department of Neurology [facility] Evaluation note Note Date & Type Note Facility Evaluation note No assessment information availa ble [facility] Work Phone: Reason for referral (narrative) Note Date & Type Note Facility Reason for referral (narrative) No reason for referral information available [facility] Work Phone: Summary Purpose Family History No Family History Records Found Relationship Condition Age at Onset Recorded Date/T mara Not Specified Arthritis Unknown Advance Directives No Advanced Directives Records Found Advance Directive Response Recorded Date/ Time Living Will Yes March 08, 2021 4:33pm Power of Fish Peddler Yes March 08 4:33pm Advance Directive Response Recorded Date/ Time Living Will Yes March 08, 2021 3:33pm Power of Fish Peddler Yes March 08 3:33pm Advance Directive Response Recorded Date/ Time Living Will Yes September 19 10:37am Power of Fish Peddler Yes September 19, 2022 10:37am Advance Directive Response Recorded Date/ Time Living Will Yes September 19 11:37am Power of Fish Peddler Yes September 19, 2022 11:37am Chief Complaint and Reason for Visit Chief Complaint DETENTION LABWORK DETENTION LABWORK DETENTION LAB WORK DETENTION LABWORK Chief Complaint DETENTION LABWORK DETENTION LAB WORK DETENTION LABWORK DETENTION LABWORK Chief Complaint DETENTION LAB WOR K DETENTION LABWORK DETENTION LABWORK Chief Complaint DETENTION LABWORK DETENTION LABWORK Chief Complaint DETENTION LABWORK DETENTION LAB WORK DETENTION LAB WORK Chief Complaint DETENTION LAB WOR K DETENTION LAB WORK DETENTION LABWORK DETENTION LAB WORK DETENTION LABWORK Chief Complaint DETENTION LAB WOR K DETENTION LAB WORK DETENTION LABWORK DETENTION LAB WORK DETENTION LABWORK DETENTION LAB WORK Chief Complaint DETENTION LABWORK DETENTION LAB WORK DETENTION LABWORK DETENTION LAB WORK DETENTION LABWORK DETENTION LAB WORK Chief Complaint DETENTION LABWORK DETENTION LAB WORK DETENTION LAB WORK ACUTE CARE VISIT Chief Complaint DETENTION LAB WOR K DETENTION LAB WORK ACUTE CARE VISIT DETENTION LABWORK NEW CONCERN/PROBLEM Chief Complaint DETENTION LABWORK NEW CONCERN/PROBLEM DETENTION LAB WORK DETENTION LABWORK Chief Complaint DETENTION LABWORK NEW CONCERN/PROBLEM DETENTION LAB WORK DETENTION LABWORK DETENTION LAB WORK Chief Complaint DETENTION LAB WOR K DETENTION LABWORK DETENTION LAB WORK DETENTION LABWORK Chief Complaint DETENTION LAB WOR K DETENTION LAB WORK Chief Complaint DETENTION LAB WOR K DETENTION LAB WORK DETENTION LAB WORK Chief Complaint DETENTION LAB WOR K DETENTION LAB WORK LABWORK DETENTION LAB WORK Chief Complaint DETENTION LAB WOR K LABWORK DETENTION LAB WORK ANNUAL EXAM MD LABWORK Chief Complaint DETENTION LAB WOR K LABWORK DETENTION LAB WORK ANNUAL EXAM MD LABWORK LABWORK Chief Complaint Admit Date DETENTION LAB WORK September 03, 2024 5:00am DETENTION LAB WORK October 15 5:00am ANNUAL EXAM November 04, 2024 12: 32pm LABWORK November 05, 2024 5:0 0am Chief Complaint Admit Date DETENTION LAB WORK September 03, 2024 5:00am DETENTION LAB WORK October 15 5:00am ANNUAL EXAM November 04, 2024 12: 32pm LABWORK November 05, 2024 5:0 0am DETENTION LAB WORK November 26, 2024 5: 00am Chief Complaint Admit Date DETENTION LAB WORK September 03, 2024 5:00am DETENTION LAB WORK October 15 5:00am ANNUAL EXAM November 04, 2024 12: 32pm LABWORK November 05, 2024 5:0 0am DETENTION LAB WORK November 26, 2024 5: 00am DETENTION LAB WORK December 03, 2024 5 :00am Chief Complaint Admit Date LABWORK February 18, 2025 5:00a m DETENTION LAB WORK March 04, 2025 5: 10am LABWORK April 01, 2025 5: 00am NEW CONCERN May 11, 2025 1:22pm Additional Source Comments INFORMATION SOURCE (unrecogn ized section and content) DATE CREATED AUTHOR 05/18/2020 Allen Barriga [facility] DATE CREATED AUTHOR AUTHOR'S ORGANIZ ATION 06/29/2021 Allen Barriga [facility] DATE CREATED AUTHOR AUTHOR'S ORGANIZ ATION 05/22/2022 [facility] DATE CREATED AUTHOR AUTHOR'S ORGANIZ ATION 06/25/2025 [facility] Goals (unrecognized section and content) [...] DO Primary Care Provider Active Celia Reed GARNISHER, GARNISHER-C Attending Provider Active Team Status: Inactive Member [...] 2025 End: May 11, 2025 Celia Reed GARNISHER, GARNISHER-C Attending physician Active Start: May 11, 2025 [...] BE BASED ON THE PRIMARY CLINICAL RECORDS. [employer] provides no warranty or guarantee of the accuracy or completeness of information in this document.
== END ==
LOC: OLS.WHLTSB 05:00
PROVIDERS: PCP Student in an Organized Health Care Education/Training Program; Visit Provider Internal Medicine
DX: E03.9 Hypothyroidism, unspecified (principal)
CPT/HCPCS: 36415; 84439; 84443